=== PATIENT | male | born 1940 | race Caucasian/White ===

== ENCOUNTER 2017-12-16 06:40 | Day surgery (SDC) | payer MEDICARE ==
[2017-12-16] MEDS ORDERED: LIDOCAINE 1% 20 ML VIAL (10MG/ML) FOR IV START INTRADERMA PRN (06:42)
[2017-12-16] MEDS ORDERED: MIDAZOLAM 2 MG/2 ML VIAL IV PRN (06:42)
[2017-12-16] MEDS ORDERED: LACTATED RINGERS 1,000 ML IV SCH (06:42)
[2017-12-16 06:56] VITALS: TEMP 98.4
[2017-12-16] MEDS ORDERED: LACTATED RINGERS 1,000 ML IV ONE ×2 (07:00)
[2017-12-16 07:05] LABS: Glucose,Whole Blood 135 mg/dL (75-99)
[2017-12-16] MEDS ORDERED: PROPOFOL 10 MG/ML 20 ML VIAL IV ONE (07:36)
[2017-12-16] MEDS ORDERED: fentaNYL (PF) 50 MCG/ML 2 ML AMP ONE (07:36)
--- NOTE | 2017-12-16 07:53 | P.GSHP ---
History of Present Illness H&P Date: 12/16/17 Chief Complaint: Screening colonoscopy 's is a 77-year-old male who presents today for screening colonoscopy. He denies a significant GI complaints. Past Medical History Past Medical History: Cancer, CVA/TIA, Myocardial Infarction (VT), Osteoarthritis (OA), Prostate Disorder Additional Past Medical History / Comment(s): CVA, NO RESIDUAL. COLON POLYPS. APPOINTMENT FOR SLEEP APNEA ASSESSMENT. SKIN CANCER. Last Myocardial Infarction Date:: 1999 History of Any Multi-Drug Resistant Organisms: None Reported Past Surgical History: Joint Replacement, Orthopedic Surgery, Tonsillectomy Additional Past Surgical History / Comment(s): ORIF LEFT SHOULDER. TOTAL LEFT KNEE. BILATERAL CATARACTS/IMPLANTS. Past Anesthesia/Blood Transfusion Reactions: No Reported Reaction Past Psychological History: No Psychological Hx Reported Smoking Status: Former smoker Past Alcohol Use History: Occasional Additional Past Alcohol Use History / Comment(s): SMOKED FOR 30 YRS, QUIT IN 1987, 2PPD. Past Drug Use History: None Reported - Past Family History Sister(s) Additional Family Medical History / Comment(s): UTERINE Brother(s) Family Medical History: Cancer Additional Family Medical History / Comment(s): PROSTATE Medications and Allergies Home Medications Medication Instructions Recorded Confirmed Type Cyanocobalamin [Vitamin B-12] 1 tab PO DAILY 12/11/17 12/11/17 History Latanoprost Ophth [Xalatan 0.005%] 1 drop BOTH EYES HS 12/11/17 12/11/17 History Liraglutide [Victoza 2-Francisco J] 1 dose SQ QAM 12/11/17 12/11/17 History Super Beta Prostate 1 tab PO BID 12/11/17 History Timolol 0.5% Ophth Soln [Timoptic 1 drop BOTH EYES HS 12/11/17 12/11/17 History 0.5% Ophth Soln] metFORMIN HCL [Glucophage] 500 mg PO HS 12/11/17 12/11/17 History Allergies Allergy/AdvReac Type Severity Reaction Status Date / Time No Known Allergies Allergy Verified 12/11/17 09:58 Surgical - Exam Vital Signs Temp Pulse Resp BP Pulse Ox 98.4 F 78 18 156/78 95 12/16/17 06:55 12/16/17 06:55 12/16/17 06:55 12/16/17 06:55 12/16/17 06:55 - General well developed, no distress - Eyes PERRL - ENT normal pinna - Neck no masses - Respiratory normal expansion - Cardiovascular Rhythm: regular - Abdomen Abdomen: soft, non tender Results - Labs Abnormal Lab Results - Last 24 Hours (Table) 12/16/17 Range/Units 06:59 POC Glucose (mg/dL) 135 H (75-99) mg/dL Assessment and Plan Assessment: We will perform screening colonoscopy.
[2017-12-16 08:08] VITALS: RESP 16
--- NOTE | 2017-12-16 08:09 | P.OP ---
Date of Procedure: 12/16/17 Preoperative Diagnosis: Screening colonoscopy Postoperative Diagnosis: Colon polyps Procedure(s) Performed: Screening colonoscopy Anesthesia: MAC Surgeon: Ivan Blancas Pathology: other (Right colon polyp, transverse colon polyp) Condition: stable Disposition: PACU Description of Procedure: Patient's placed on the endoscopy table in the lateral position. He received IV sedation. Digital rectal exam was performed which revealed no rebound is. The flexible colonoscope was then placed patient anus passed throughout the entire colon. The ileocecal valve was visualized. The cecum, was normal. In the right colon is a small sessile polyp and this was removed the cold forcep. Scope was then brought back the transverse colon another sessile polyp was seen and instrument with a cold forcep. Scope was then withdrawn and the remainder the descending and sigmoid colon appeared normal. Scope was then brought back the rectum and this appeared normal. Scope was withdrawn for patient.
[2017-12-16 08:26] VITALS: BP 125/81; PULSE 72
== END 2017-12-16 08:52 | disposition home or self-care (01) ==
LOC: ORWHC2ENDO 06:40
PROVIDERS: ATTEND Surgery
DX: Z12.11 Encounter for screening for malignant neoplasm of colon (principal); D12.2 Benign neoplasm of ascending colon; D12.3 Benign neoplasm of transverse colon; I25.2 Old myocardial infarction; I25.10 Atherosclerotic heart disease of native coronary artery without angina pectoris; M19.90 Unspecified osteoarthritis, unspecified site; E11.9 Type 2 diabetes mellitus without complications; Z86.010 Personal history of colon polyps; Z85.828 Personal history of other malignant neoplasm of skin; Z87.891 Personal history of nicotine dependence; Z79.84 Long term (current) use of oral hypoglycemic drugs; Z79.899 Other long term (current) drug therapy; Z86.73 Personal history of transient ischemic attack (TIA), and cerebral infarction without residual deficits; Z95.5 Presence of coronary angioplasty implant and graft
CPT/HCPCS: 88305; 45380; J3010; J2704

== ENCOUNTER → 2018-01-02 | Outpatient (CLI) | payer MEDICARE ==
--- NOTE | 2018-01-02 17:29 | CONS ---
CONSULTATION DATE OF SERVICE: 01/02/2018 77-year-old gentleman who has been evaluated in the sleep center for possible obstructive sleep apnea-hypopnea syndrome. HISTORY OF PRESENT ILLNESS/SLEEP-WAKE EVALUATION: Patient usual bedtime from 11 p.m. until 1 a.m. and he sleeps until 7- 8 a.m. Usually no problems with falling asleep. No TV in bedroom. He sleeps in different positions including backside and stomach with his and according to her, he has very loud snoring and stopped breathing during the sleep. The patient wakes up from sleep maybe once with nocturia. During the day, patient feels sleepy, may take nap 1 or 2 times any time. [place] Sleepiness Scale significantly increased to 10. PAST MEDICAL HISTORY: Positive for coronary artery disease, diabetes mellitus, stroke in 1999 with changes of peripheral vision without any residual deficit, glaucoma. PAST SURGICAL HISTORY: Stent insertion to coronary arteries, left knee replacement, surgery for left upper arm fracture. MEDICATIONS: Patient does not remember the name of medications. He is taking eye drops for glaucoma, medication for diabetes. SOCIAL HISTORY: Positive for smoking for about 30 years up to 1-1/2 pack per day. Quit in 1985. Alcohol consumption rarely at the present time. REVIEW OF SYSTEMS: Awakenings from sleep, sleepiness during the day. FAMILY HISTORY: Hypertension, heart problems, stroke, arthritis, sleep apnea, snoring, cancer, diabetes. PHYSICAL EXAM: GENERAL 77-year-old gentleman without distress. VITAL SIGNS BP 138/60, HR 83, RR 18, height 5 and 7, weight 208.8, BMI 32.5, temperature 99, oxygen saturation at room air 96%. HEENT PERRLA, EOMI, evaluation of oropharynx showed extremely low position of soft palate, small nasal passages, some slight restriction of nasal breathing, wide neck 17- 3/4 inches in circumference. NECK Supple, no JVD. Thyroid is not palpable. LUNGS Clear to percussion and to auscultation. Good air exchange. No wheezing or rhonchi. HEART S1, S2 regular. No murmurs, gallops, or rubs. ABDOMEN Obese. Soft and nontender. Bowel sounds are present. No organomegaly appreciated. EXTREMITIES No clubbing or cyanosis. YEAST CAKE CUTTER Awake, alert, and oriented X3. Cranial nerves 2 to 7 intact. There is no fasciculation or atrophy. noted. No focal deficits observed. IMPRESSION: 1. Snoring, witnessed episodes of stopped breathing during the sleep, low position of soft palate, excessive daytime sleepiness. [place] Sleepiness Scale is 10, wide neck, obstructive sleep apnea-hypopnea syndrome. 2. Mild obesity, BMI 32.5. 3. Diabetes mellitus. 4. Coronary artery disease, status post stent insertion. 5. Glaucoma. 6. History of stroke in 1999 with changes of peripheral vision. No residual deficit. 7. Status post total left knee replacement. 8. Status post left upper arm fracture. PLAN: 1. Polysomnography for evaluation of patient's breathing during sleep. 2. CPAP/BiPAP titration if sleep study confirms obstructive sleep apnea-hypopnea syndrome. 3. Preferable position during sleep on the side. 4. No driving if patient feels any sleepiness. 5. I will see patient for follow up visit to explain results of testing and following plan. Thank you very much for referring this patient for consultation. Sincerely, Sandeep Pina MD, PhD, FAASM Diplomat of [employer] Pulp Roller of [facility] [place] MMODL / IJN: [id number] /
== END | disposition home or self-care (01) ==
LOC: SLEEP 14:38
PROVIDERS: ATTEND Internal Medicine
DX: G47.33 Obstructive sleep apnea (adult) (pediatric) (principal); E66.9 Obesity, unspecified; Z68.32 Body mass index [BMI] 32.0-32.9, adult; E11.9 Type 2 diabetes mellitus without complications; I25.10 Atherosclerotic heart disease of native coronary artery without angina pectoris; Z95.5 Presence of coronary angioplasty implant and graft; H40.9 Unspecified glaucoma; Z86.73 Personal history of transient ischemic attack (TIA), and cerebral infarction without residual deficits; Z96.652 Presence of left artificial knee joint; Z87.81 Personal history of (healed) traumatic fracture; Z99.89 Dependence on other enabling machines and devices; Z87.891 Personal history of nicotine dependence
CPT/HCPCS: 99211

== ENCOUNTER → 2018-02-28 | Outpatient (CLI) | payer MEDICARE ==
--- NOTE | 2018-02-28 12:21 | XR ---
Abdomen HISTORY: Right kidney stone Frontal view of the abdomen on 2 images. No comparisons. Double-J ureteral stent is in place. There are calcifications at the level of the proximal right uret er, approximately 4 5 calcification suspected, largest measures approximately 9 mm. Multiple calcific ations are also seen within right kidney, additional 5-10 calcifications suspected. Suspect at least one calcification within the left kidney. Largest calcifications within the kidneys measure only appr oximately 3 to 5 mm. Lung bases are clear. There is no evident bowel obstruction or pneumoperitoneum. Probable vascular calcifications within the pelvis. Bone mineralization is normal. IMPRESSION: Nephrolithiasis, proximal right ureteral calcifications.
== END ==
LOC: RADXRMAIN 09:58
PROVIDERS: ATTEND Urology
DX: N20.0 Calculus of kidney (principal); N28.89 Other specified disorders of kidney and ureter
CPT/HCPCS: 74018

== ENCOUNTER → 2018-03-18 | Outpatient (CLI) | payer MEDICARE ==
--- NOTE | 2018-03-18 13:47 | XR ---
Abdomen HISTORY: Stone Frontal view of the abdomen correlated prior exam 02/28/2018 History an interval removal of double-J stent. The calcifications seen over the right kidney and in t he proximal right ureter are no longer evident. Paraspinal calcification at L4 level shows central josefina cency and likely represents a phlebolith. Calcifications within the pelvis are also noted and thought to be stable on the left. IMPRESSION: Interval improvement in nephrolithiasis, proximal right ureteral lithiasis. Interval doub le-J stent removal.
== END | disposition home or self-care (01) ==
LOC: RADXRMAIN 10:53
PROVIDERS: ATTEND Urology
DX: N20.2 Calculus of kidney with calculus of ureter (principal)
CPT/HCPCS: 74018

== ENCOUNTER → 2018-04-24 | Outpatient (CLI) | payer MEDICARE ==
--- NOTE | 2018-04-24 15:25 | PN ---
PROGRESS NOTE DATE OF SERVICE: 04/24/2018 A 78-year-old gentleman who has been followed in the Sleep Center for treatment of obstructive sleep apnea-hypopnea syndrome. Recently patient had diagnostic polysomnogram and CPAP titration, which showed that he has obstructive sleep apnea- hypopnea syndrome and I explained the results of the sleep studies to the patient and family in details. Subsequently, patient was started on treatment with CPAP in 2 days. He has just visit with his CPAP machine. He is able to use his machine has some problems related to a full-face mask because it is pressed on his nasal bridge. Otherwise, he is able to use CPAP equipment every night. I checked his CPAP unit. CPAP pressure is 10 cm of water. Usage is 100% of the time more than 4 hours, average 8.3 hours. Leak is only 6 L/minute. Apnea-hypopnea index for the last month only 1.3, which is absolutely normal. Today, his [place] Sleepiness Scale is 10. MEDICATIONS: Metformin. PHYSICAL EXAM: Patient in no distress, BP 142/67, HR 74, RR18, weight 221.2, temperature 98.7, oxygen saturation room air 96%. OROPHARYNX: Extremely low position of soft palate. ABDOMEN: Obese. Neck Supple, no JVD. Thyroid is not palpable. LUNGS Clear to percussion and to auscultation. Good air exchange. No wheezing or rhonchi. HEART S1, S2 regular. No murmurs, gallops, or rubs. EXTREMITIES No clubbing or cyanosis. JD EDWARDS DEVELOPER Awake, alert, and oriented X3. Cranial nerves 2 to 7 intact. There is no fasciculation or atrophy. noted. No focal deficits observed. IMPRESSION: 1. Obstructive sleep apnea-hypopnea syndrome in moderate range apnea-hypopnea index 20.5 with oxygen desaturation to 78.4% on control with CPAP at 10 cm of water patient demonstrated 100% compliance with treatment benefitting from treatment. 2. Diabetes mellitus. 3. Mild obesity. 4. Coronary artery disease, status post stent insertion. 5. Glaucoma. 6. History of stroke in 2000 with changes of peripheral vision. 7. Status post total left knee replacement. PLAN: 1. Patient will continue to use CPAP equipment every night for the whole night. 2. We fitted patient with a new type of full-face mask [employer] and he likes this type of mask. I will write him a prescription for this mask. 3. Losing weight. 4. Sleep hygiene with regular time in bed for at least 8 hours. 5. No driving if feeling any sleepiness. Thank you very much for allowing me to participate in the management of your patient. Sincerely, Sandeep Pina MD, PhD, FAASM Diplomat of [employer] Baggage Security Checker of [facility] [place] MMODL / IJN: [id number] /
== END ==
LOC: SLEEP 13:53
PROVIDERS: ATTEND Internal Medicine
DX: G47.33 Obstructive sleep apnea (adult) (pediatric) (principal); E11.9 Type 2 diabetes mellitus without complications; E66.9 Obesity, unspecified; I25.10 Atherosclerotic heart disease of native coronary artery without angina pectoris; H40.9 Unspecified glaucoma; Z86.73 Personal history of transient ischemic attack (TIA), and cerebral infarction without residual deficits; Z96.652 Presence of left artificial knee joint; Z95.5 Presence of coronary angioplasty implant and graft; Z99.89 Dependence on other enabling machines and devices

== ENCOUNTER → 2019-04-02 | Outpatient (CLI) | payer MEDICARE ==
--- NOTE | 2019-04-02 12:23 | SFUN ---
SLEEP CENTER FOLLOW UP NOTE DATE OF SERVICE: 04/02/2019 A 79-year-old gentleman who has been followed in the Sleep Center for treatment of obstructive sleep apnea-hypopnea syndrome. The patient successfully continues to use CPAP equipment every night without significant problems related to mask fitting, pressure and humidification. [place] Sleepiness Scale today although increased to 14. He is getting his supplies in time. I checked his CPAP unit. CPAP pressure is 10 cm of water. For the last month, usage is 25/30 nights for more hours with average usage 9.3 hours per night. Leak is 10 L/minute which is normal range. Apnea-hypopnea index only 0.9, which is absolutely perfect. Recently patient had laser surgery on both eyes for glaucoma. Eye pressure improved after surgery. MEDICATIONS: Metformin. During physical exam patient in no distress. BP 135/72, HR 74, RR 18, height 5, 7, weight 224, which is 3 pounds more than during last visit one year ago. Body mass index 35. Temperature 97.9. oxygen saturation at room air 98%. OROPHARYNX: Extremely low position of soft palate. Mallampati 4. ABDOMEN: Obese. NECK: Supple, no JVD. Thyroid is not palpable. LUNGS: Clear to percussion and to auscultation. Good air exchange. No wheezing or rhonchi. HEART: S1, S2 regular. No murmurs, gallops, or rubs. EXTREMITIES: No clubbing or cyanosis. CONDUCTOR SLEEPING CAR: Awake, alert, and oriented X3. Cranial nerves 2 to 7 intact. There is no fasciculation or atrophy. noted. No focal deficits observed. IMPRESSION: 1. Obstructive sleep apnea-hypopnea syndrome in moderate range. Apnea-hypopnea index 20.5, on full control with CPAP at 10 cm of water. Patient demonstrated great compliance with treatment, benefitting from treatment. 2. Diabetes mellitus. 3. Mild obesity. 4. Coronary artery disease, status post stent insertion. 5. Glaucoma, status post surgical treatment, bilateral laser on both eyes several months ago. 6. History of stroke in 1999 with changes of peripheral vision. 7. Status post total left knee replacement. PLAN: 1. I will maintain all necessary prescriptions for CPAP supplies including mask, tube, filters. 2. Losing weight. 3. Sleep hygiene with regular time in bed for at least 7-1/2 to 8 hours. 4. No driving if feeling sleepiness. 5. Followup visit in 1 year or earlier if patient has any problems. Thank you very much for allowing me to participate in the management of your patient. Sincerely, Sandeep Pina MD, PhD, FAASM Diplomat of [employer] [employer] Floor Representative of [facility] [place] [email or web address] / BILLY: [id number] /
== END | disposition home or self-care (01) ==
LOC: SLEEP 10:46
PROVIDERS: ATTEND Internal Medicine
DX: G47.33 Obstructive sleep apnea (adult) (pediatric) (principal); E11.9 Type 2 diabetes mellitus without complications; E66.9 Obesity, unspecified; I25.10 Atherosclerotic heart disease of native coronary artery without angina pectoris; H40.9 Unspecified glaucoma; Z95.828 Presence of other vascular implants and grafts; Z98.890 Other specified postprocedural states; Z86.73 Personal history of transient ischemic attack (TIA), and cerebral infarction without residual deficits; Z96.652 Presence of left artificial knee joint; Z99.89 Dependence on other enabling machines and devices

== ENCOUNTER → 2020-07-06 | Outpatient (CLI) | payer MEDICARE ==
--- NOTE | 2020-07-06 17:35 | SFUN ---
SLEEP CENTER FOLLOW UP NOTE DATE OF SERVICE: 07/06/2020 This 80-year-old gentleman has been followed in Sleep Center for treatment of obstructive sleep apnea-hypopnea syndrome. The patient did not use his CPAP unit for the last months because he had an ear implant on his head and headgear pressing on the area of surgery. Before that, the patient was able to use CPAP unit without significant problems every night for the whole night. I checked his CPAP unit. Pressure is 10 cm of water. Previously the patient used it every night, 9.4 hours per night. Leak was 16 L/minute. Apnea-hypopnea index was only 0.4, which is totally normal. At present his area of surgery has healed, and he will start to use his CPAP equipment every night. [place] Sleepiness Scale today is 12. Again, the patient patient was not able to use his machine for the last months. MEDICATIONS: Metformin once a day, Flomax once a day. PHYSICAL EXAMINATION: GENERAL: A pleasant patient in no distress. VITAL SIGNS: BP 150/64, HR 73, RR 15, height 5 feet 7 inches, weight 219.4, temperature 98.6, oxygen saturation at room air 98%. HEENT: PERRLA, EOMI. Evaluation of oropharynx showed tongue protrudes midline. Extremely low position of soft palate. Mallampati IV. Amplifier for hearing on the left side of the head. NECK: Supple. No JVD. Thyroid is not palpable. LUNGS: Clear to percussion and to auscultation. Good air exchange. No wheezing or rhonchi. HEART: S1, S2 regular. No murmurs, gallops or rubs. ABDOMEN: Slightly obese. EXTREMITIES: No clubbing or cyanosis. TRIMMER LOADER: Awake, alert, and oriented X3. Cranial nerves 2 to 7 intact. There is no fasciculation or atrophy. noted. No focal deficits observed. IMPRESSION: 1. Obstructive sleep apnea-hypopnea syndrome; normal respiration on CPAP. 2. Status post recent ear implant insertion. The patient was not able to use the machine because of the area of surgery being in the way where he has headgear for the CPAP. 3. Diabetes mellitus. 4. Mild obesity. 5. Coronary artery disease, status post stent insertion. 6. Glaucoma, status post surgical treatment by laser. 7. History of stroke in 1999 with changes in peripheral vision. 8. Status post total left knee replacement. PLAN: 1. Patient will continue to use PAP equipment every night for the whole night. 2. Sleep hygiene with regular time in bed for at least 7-1/2 to 8 hours. 3. Precautions related to driving. No driving if feeling sleepiness. 4. I will maintain all necessary prescription for PAP supplies including mask, tube, filters. 5. Watching weight. 6. No driving if feeling sleepiness. 7. Follow-up visit in 6 months or earlier if patient has any problems. Thank you very much for allowing me to participate in the management of your patient. Sincerely, Sandeep Pina MD, PhD, FAASM Diplomat of [employer] Inventory Technician of [facility] [place] MMODL / KENZIEN: [id number] /
== END | disposition home or self-care (01) ==
LOC: SLEEP 11:22
PROVIDERS: ATTEND Internal Medicine
DX: G47.33 Obstructive sleep apnea (adult) (pediatric) (principal); E11.9 Type 2 diabetes mellitus without complications; E66.9 Obesity, unspecified; H40.9 Unspecified glaucoma; I25.10 Atherosclerotic heart disease of native coronary artery without angina pectoris; Z95.5 Presence of coronary angioplasty implant and graft; Z96.652 Presence of left artificial knee joint; Z99.89 Dependence on other enabling machines and devices; Z79.84 Long term (current) use of oral hypoglycemic drugs; Z86.73 Personal history of transient ischemic attack (TIA), and cerebral infarction without residual deficits

== ENCOUNTER 2020-07-14 06:44 | Day surgery (SDC) | payer MEDICARE ==
[2020-07-12 16:10] VITALS: BMI 34.4
[~2020-07-14 06:44] MED LIST: LACTATED RINGERS 1,000 ML IV SCH
[2020-07-14 07:22] VITALS: TEMP 97.1
[2020-07-14] MEDS ORDERED: PROPOFOL 10 MG/ML 20 ML VIAL IV ONE (07:28)
[2020-07-14 07:31] LABS: Glucose,Whole Blood 108 mg/dL (75-99)
[2020-07-14 07:48] VITALS: RESP 16
[2020-07-14 08:05] VITALS: BP 126/72; PULSE 57
--- NOTE | 2020-07-14 08:42 | PCN ---
PROCEDURE NOTE PREOPERATIVE DIAGNOSIS: Pancytopenia. POSTOPERATIVE DIAGNOSIS: Pancytopenia. PROCEDURE: Bone marrow aspirate and biopsy. SITE: Right iliac crest. ANESTHESIA: Local with IV systemic sedation. DETAILS: Utilizing sterile technique, the skin overlying the right iliac crest was prepared with Betadine and alcohol. After adequate sterile draping, local anesthesia and systemic sedation, a size 11, 4-inch Aveillantshidi needle was utilized to access the periosteum with ease. A total of 15 mL of aspirate and 1.5 cm bone core biopsies were obtained. The patient tolerated the procedure well. There was no immediate procedure related complication. TOTAL BLOOD LOSS: Less than 1 mL. RESULTS: Pending. MMODL / IJN: [id number] /
[2020-07-14 09:09] LABS: Anisocytosis Moderate; Basophils # (A) 0.1 k/uL (0-0.2); Basophils % (A) 1 %; Eosinophils # (A) 0.5 k/uL (0-0.7); Eosinophils % (A) 9 %; HCT 30.5 % (39.0-53.0); HGB 10.2 gm/dL (13.0-17.5); Lymphocytes # (A) 1.3 k/uL (1.0-4.8); Lymphocytes % (A) 24 %; MCH 39.2 pg (25.0-35.0); MCHC 33.5 g/dL (31.0-37.0); Macrocytosis Marked; Mean Platelet Volume 11.8; Monocytes # (A) 0.3 k/uL (0-1.0); Monocytes % (A) 6 %; Neutrophils % (A) 56 %; RBC 2.61 m/uL (4.30-5.90); Reticulocyte % 1.8 % (0.5-2.0); WBC 5.3 k/uL (3.8-10.6)
[2020-07-14 10:16] LABS: Large Platelets Present; Poikilocytosis (M) Present
[2020-07-14 10:17] LABS: Platelet Count 60 k/uL (150-450)
== END 2020-07-14 08:20 | disposition home or self-care (01) ==
LOC: OR 06:44
PROVIDERS: ATTEND Internal Medicine Hematology & Oncology
DX: D50.9 Iron deficiency anemia, unspecified (principal); D69.6 Thrombocytopenia, unspecified; E11.9 Type 2 diabetes mellitus without complications; Z95.5 Presence of coronary angioplasty implant and graft; Z96.652 Presence of left artificial knee joint; Z98.890 Other specified postprocedural states; Z80.42 Family history of malignant neoplasm of prostate; Z80.41 Family history of malignant neoplasm of ovary; Z86.19 Personal history of other infectious and parasitic diseases; Z87.891 Personal history of nicotine dependence; G47.33 Obstructive sleep apnea (adult) (pediatric); Z99.89 Dependence on other enabling machines and devices; Z85.828 Personal history of other malignant neoplasm of skin; Z86.73 Personal history of transient ischemic attack (TIA), and cerebral infarction without residual deficits; Z97.2 Presence of dental prosthetic device (complete) (partial); Z79.84 Long term (current) use of oral hypoglycemic drugs; Z79.899 Other long term (current) drug therapy
CPT/HCPCS: 85025; 85045; 38222; J2704

== ENCOUNTER → 2022-09-13 | Outpatient (CLI) | payer MEDICARE ==
[2022-09-13 10:20] LABS: INR 1.5 (<1.2); Partial Thromboplastin Time 26.3 sec (22.0-30.0); Prothrombin Time 14.7 sec (9.0-12.0)
[2022-09-13 15:38] LABS: Appearance,Urine Clear (Clear); Bilirubin,Urine Negative (Negative); Blood,Urine Negative (Negative); Color,Urine Dark Yellow (Yellow); Ketones,Urine Negative (Negative); Nitrite,Urine Negative (Negative); Specific Gravity,Urine 1.019 (1.001-1.030)
[2022-09-13 15:59] LABS: African American GFR (CKD) 58.9 (60.0-200.0); Albumin 3.3 g/dL (3.8-4.9); Albumin/Globulin Ratio 0.92 (1.60-3.17); Anion Gap 9.3 mmol/L (10.00-18.00); BUN/Creat Ratio 16.54 Ratio (12.00-20.00); Blood Urea Nitrogen 21.5 mg/dL (9.0-27.0); Calcium 9.2 mg/dL (8.7-10.3); Carbon Dioxide 21.9 mmol/L (20.0-27.5); Globulin 3.6 g/dL (1.6-3.3); Non-African American GFR(CKD) 50.8 (60.0-200.0); Potassium 4.5 mmol/L (3.5-5.5); Total Bilirubin 2.3 mg/dL (0.30-1.20)
[2022-09-13 16:26] LABS: HCT 26.7 % (39.6-50.0); HGB 8.7 g/dL (13.0-17.0); Immature Platelet Fraction 16.3 % (1.1-6.1); MCHC 32.6 g/dL (32.0-37.0); MCV 119.7 fL (80.0-97.0); Mean Platelet Volume 13.6 fL (9.5-12.2); NRBC Per 100 WBC 0 /100 WBCS (0.0-0.0); Platelet Count 54 X 10*3/uL (140-440); RBC 2.23 X 10*6/uL (4.40-5.60); RDW 21.5 % (11.5-14.5); WBC 5.77 X 10*3/uL (4.50-10.00)
== END | disposition home or self-care (01) ==
LOC: LABPAT 09:40
PROVIDERS: ATTEND Orthopaedic Surgery
DX: Z01.812 Encounter for preprocedural laboratory examination (principal); E11.9 Type 2 diabetes mellitus without complications; M17.11 Unilateral primary osteoarthritis, right knee
CPT/HCPCS: 36415; 80053; 81003; 83036; 85027; 85610; 85730; 87070

== ENCOUNTER → 2022-09-25 | Outpatient (CLI) | payer MEDICARE | END | disposition home or self-care (01) | LOC: LABWHC1 09:13 | PROVIDERS: ATTEND Orthopaedic Surgery | DX: Z53.9 Procedure and treatment not carried out, unspecified reason (principal) ==

== ENCOUNTER 2022-11-08 14:11 | Inpatient (IN) | payer MEDICARE ==
[2022-11-08 14:56] LABS: Anisocytosis Moderate; Basophils % (A) 0 %; Eosinophils # (A) 0.3 k/uL (0-0.7); Eosinophils % (A) 8 %; HCT 24.9 % (39.0-53.0); HGB 8.2 gm/dL (13.0-17.5); Hypochromasia Slight; Lymphocytes % (A) 24 %; MCH 37.8 pg (25.0-35.0); MCHC 32.9 g/dL (31.0-37.0); Macrocytosis Marked; Mean Platelet Volume 12.2; Monocytes # (A) 0.3 k/uL (0-1.0); Monocytes % (A) 7 %; Neutrophils # (A) 2.5 k/uL (1.3-7.7); Neutrophils % (A) 58 %; RBC 2.17 m/uL (4.30-5.90); RDW 20.1 % (11.5-15.5); WBC 4.4 k/uL (3.8-10.6)
[2022-11-08 15:09] LABS: ALT 24 U/L (4-49); AST 49 U/L (17-59); African American GFR (CKD) 51 (>60 ml/min/1.73 sqM); Alkaline Phosphatase 72 U/L (38-126); Anion Gap 4 mmol/L; Blood Urea Nitrogen 17 mg/dL (9-20); Calcium 8.3 mg/dL (8.4-10.2); Carbon Dioxide 28 mmol/L (22-30); Chloride 107 mmol/L (98-107); Glucose 125 mg/dL (74-99); Non-African American GFR(CKD) 44 (>60 ml/min/1.73 sqM); Potassium 2.9 mmol/L (3.5-5.1); Sodium 139 mmol/L (137-145); Total Bilirubin 2.3 mg/dL (0.2-1.3); Total Protein 6.9 g/dL (6.3-8.2)
--- NOTE | 2022-11-08 15:28 | XR ---
EXAMINATION TYPE: XR chest 2V DATE OF EXAM: 11/08/2022 COMPARISON: 03/12/2013 HISTORY: Shortness of breath FINDINGS: There are bilateral pleural effusions with cardiomegaly and bibasilar infiltrate. There is a diffuse interstitial pattern. Biapical pleural thickening. No pneumothorax. Hypertrophic and degenerative ch anges of the spine. Hyperinflation suggests COPD. IMPRESSION: 1. CHF superimposed on a background of COPD.
[2022-11-08 15:29] LABS: MCV 114.8 fL (80.0-100.0); Platelet Count 52 k/uL (150-450)
[2022-11-08] MEDS ORDERED: FUROSEMIDE 10 MG/ML 10 ML VIAL IV STA (15:33)
[2022-11-08] MEDS ORDERED: NITROGLYCERIN OINT 1 INCH/GM PACKET TOPICAL STA (15:34)
[2022-11-08 15:42] LABS: Target Cells Present
[2022-11-08 15:43] LABS: Tear Drop Cells Present
--- NOTE | 2022-11-08 16:04 | ED ---
General Adult HPI - General Chief complaint: Shortness of Breath Stated complaint: PHILLIP Time Seen by Provider: 11/08/22 14:20 Source: patient, RN notes reviewed, old records reviewed Mode of arrival: ambulatory Limitations: no limitations - History of Present Illness Initial comments: This is a 82-year-old male who was sent in by his primary medical care doctor he has a history of congestive heart failure. Patient states she's been getting progressively more more short of breath. Patient states she's also gained 30 pounds over the last few weeks. Patient denies any fever chills. Patient denies any chest pain or palpitations. Patient denies any abdominal pain patient denies nausea vomiting diarrhea. Patient denies lightheadedness or dizziness. Patient has noted quite a bit of swelling in his extremities. - Related Data Home Medications Medication Instructions Recorded Confirmed Cyanocobalamin [Vitamin B-12] 500 mcg PO DAILY 12/11/17 11/08/22 Latanoprost Ophth [Xalatan 0.005%] 1 drop BOTH EYES HS 12/11/17 11/08/22 Multivit-Min/FA/Lycopen/Lutein 1 tab PO DAILY 07/12/20 11/08/22 [Centrum Silver Men Tablet] Tamsulosin [Flomax] 0.4 mg PO HS 07/12/20 11/08/22 Ferrous Sulfate [Iron (65 MG 325 mg PO DAILY 07/25/22 11/08/22 Elemental)] Pioglitazone [Actos] 30 mg PO DAILY 07/25/22 11/08/22 lisinopriL 2.5 mg PO DAILY 07/25/22 11/08/22 Albuterol Inhaler [Ventolin Hfa 2 puff INHALATION RT-Q6H PRN 11/08/22 11/08/22 Inhaler] Dorzolamide/Timolol/Pf 1 drop BOTH EYES HS 11/08/22 11/08/22 [Dorzolamide 2%-Timolol 0.5%] Furosemide [Lasix] 40 mg PO BID@0900,1600 11/08/22 11/08/22 Previous Rx's Medication Instructions Recorded Apixaban [Eliquis] 2.5 mg PO BID #60 tab 10/01/22 Atorvastatin [Lipitor] 40 mg PO DAILY #90 tablet 10/01/22 Allergies Allergy/AdvReac Type Severity Reaction Status Date / Time No Known Allergies Allergy Verified 11/08/22 17:53 Review of Systems ROS Statement: Those systems with pertinent positive or pertinent negative responses have been documented in the HPI. ROS Other: All systems not noted in ROS Statement are negative. 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 COLON POLYPS, SKIN CANCER,uses cpap Last Myocardial Infarction Date:: 1999 History of Any Multi-Drug Resistant Organisms: None Reported Past Surgical History: Back Surgery, Joint Replacement, Orthopedic Surgery, Tonsillectomy Additional Past Surgical History / Comment(s): ORIF LEFT SHOULDER. TOTAL LEFT KNEE. BILATERAL CATARACTS/IMPLANTS. Past Anesthesia/Blood Transfusion Reactions: No Reported Reaction Additional Past Anesthesia/Blood Transfusion Reaction / Comment(s): no problems with prior with platelet infusion Date of Last Stent Placement:: 1999 Past Psychological History: No Psychological Hx Reported Smoking Status: Former smoker Past Alcohol Use History: Occasional Past Drug Use History: None Reported - Past Family History Sister(s) Family Medical History: Cancer Additional Family Medical History / Comment(s): UTERINE CANCER. Brother(s) Family Medical History: Cancer Additional Family Medical History / Comment(s): PROSTATE CANCER. General Exam - General Exam Comments Initial Comments: GENERAL: Patient is well-developed and well-nourished. Patient is nontoxic and well- hydrated and is in mild distress. ENT: Neck is soft and supple. No significant lymphadenopathy is noted. Oropharynx is clear. Moist mucous membranes. Neck has full range of motion without e liciting any pain. EYES: The sclera were anicteric and conjunctiva were pink and moist. Extraocular movements were intact and pupils were equal round and reactive to light. Eyelids were unremarkable. PULMONARY: Patient has expiratory wheezing bilaterally CARDIOVASCULAR: There is a regular rate and rhythm without any murmurs gallops or rubs. ABDOMEN: Soft and nontender with normal bowel sounds. SKIN: Skin is clear with no lesions or rashes and otherwise unremarkable. NEUROLOGIC: Patient is alert and oriented x3. Cranial nerves II through XII are grossly intact. Motor and sensory are also intact. Normal speech, volume and content. Symmetrical smile. MUSCULOSKELETAL: Normal extremities with adequate strength and full range of motion. 2+ edema bilaterally LYMPHATICS: No significant lymphadenopathy is noted PSYCHIATRIC: Normal psychiatric evaluation. Limitations: no limitations Course Vital Signs 11/08/22 14:13 Temperature 98.5 F Pulse Rate 97 Respiratory 28 H Rate Blood Pressure 132/62 O2 Sat by Pulse 95 Oximetry Medical Decision Making - Medical Decision Making EKG was interpreted by myself shows atrial fibrillation at 80 bpm QRS is 97 QT interval 45 QTC is 441 per patient's EKG shows no ST segment elevation or dep ression. Was pt. sent in by a medical professional or institution (, PA, TEACHER VISUALLY IMPAIRED, urgent care, hospital, or longterm...) When possible be specific @ -[No] Did you speak to anyone other than the patient for history (EMS, parent, family, police, friend...)? What history was obtained from this source @ -[No] Did you review nursing and triage notes (agree or disagree)? Why? @ -[I reviewed and agree with nursing and triage notes] Were old charts reviewed (outside hosp., previous admission, EMS record, old EKG, old radiological studies, urgent care reports/EKG's, longterm records)? Report findings @ -I reviewed prior Labs prior charts and prior radiological studies Differential Diagnosis (chest pain, altered mental status, abdominal pain women, abdominal pain men, vaginal bleeding, weakness, fever, dyspnea, syncope, headache, dizziness, GI bleed, back pain, seizure, CVA, palpatations, mental health, musculoskeletal)? @ -Differential Dyspnea: Coronary syndrome, arrhythmia, tamponade, asthma, COPD, pulmonary embolism, pneumonia, pneumothorax, pulmonary effusion, anaphylaxis, diabetic ketoacidosis, flailed chest, pulmonary contusion, diaphragmatic rupture, anemia, neuromuscular, this is not meant to be an all-inclusive list. EKG interpreted by me (3pts min.). @ -[As above] X-rays interpreted by me (1pt min.). @ -Stat x-ray shows ulnar edema CT interpreted by me (1pt min.). @ -[None done] U/S interpreted by me (1pt. min.). @ -[None done] What testing was considered but not performed or refused? (CT, X-rays, U/S, labs)? Why? @ -[None] What meds were considered but not given or refused? Why? @ -[None] Did you discuss the management of the patient with other professionals (professionals i.e. , PA, TEACHER VISUALLY IMPAIRED, lab, RT, psych nurse, transition social worker, strategic buyer, teacher, assurance officer, shelter case manager)? Give summary @ -[facility] Was smoking cessation discussed for >3mins.? @ -[No] Was critical care preformed (if so, how long)? @ -[No] Were there social determinants of health that impacted care today? How? (Homelessness, low income, unemployed, alcoholism, drug addiction, transportation, low edu. Level, literacy, decrease access to med. care, snf, rehab)? @ -[No] Was there de-escalation of care discussed even if they declined (Discuss DNR or withdrawal of care, Hospice)? DNR status @ -[No] What co-morbidities impacted this encounter? (DM, HTN, Smoking, COPD, CAD, Cancer, CVA, ARF, Chemo, Hep., AIDS, mental health diagnosis, sleep apnea, morbid obesity)? @ -[None] Was patient admitted / discharged? Hospital course, mention meds given and ro parker, prescriptions, significant lab abnormalities, going to OR and other pertinent info. @ -Patient was brought into emergency department with a complaint of shortness of breath patient's chest x-ray confirmed pulmonary edema. Patient was given Nitropaste and Lasix and he diuresis quite a bit is feeling slightly better but [facility] admitted the patient I consult to cardiology Undiagnosed new problem with uncertain prognosis? @ -[No] Drug Therapy requiring intensive monitoring for toxicity (Heparin, Nitro, Insulin, Cardizem)? @ -[No] Were any procedures done? @ -[No] Diagnosis/symptom? @ -Pulmonary edema Acute, or Chronic, or Acute on Chronic? @ -Acute Uncomplicated (without systemic symptoms) or Complicated (systemic symptoms)? @ -Complicated Side effects of treatment? @ -[No] Exacerbation, Progression, or Severe Exacerbation? @ -Severe exacerbation Poses a threat to life or bodily function? How? (Chest pain, USA, GA, pneumonia, PE, COPD, DKA, ARF, appy, cholecystitis, CVA, Diverticulitis, Homicidal, Suicidal, threat to staff... and all critical care pts) @ -Yes is complete hypoxia and then end organ dysfunction - Lab Data Result diagrams: 11/08/22 14:25 11/08/22 14:25 Lab Results 11/08/22 11/08/22 11/08/22 Range/Units 14:25 14:25 14:25 WBC 4.4 (3.8-10.6) k/uL RBC 2.17 L (4.30-5.90) m/uL Hgb 8.2 L (13.0-17.5) gm/dL Hct 24.9 L (39.0-53.0) % MCV 114.8 H D (80.0-100.0) fL MCH 37.8 H (25.0-35.0) pg MCHC 32.9 (31.0-37.0) g/dL RDW 20.1 H (11.5-15.5) % Plt Count 52 L (150-450) k/uL MPV 12.2 Neutrophils % 58 % Lymphocytes % 24 % Monocytes % 7 % Eosinophils % 8 % Basophils % 0 % Neutrophils # 2.5 (1.3-7.7) k/uL Lymphocytes # 1.0 (1.0-4.8) k/uL Monocytes # 0.3 (0-1.0) k/uL Eosinophils # 0.3 (0-0.7) k/uL Basophils # 0.0 (0-0.2) k/uL Manual Slide Review Performed Hypochromasia Slight Anisocytosis Moderate Macrocytosis Marked A Target Cells Present Tear Drop Cells Present Sodium 139 (137-145) mmol/L Potassium 2.9 L (3.5-5.1) mmol/L Chloride 107 (98-107) mmol/L Carbon Dioxide 28 (22-30) mmol/L Anion Gap 4 mmol/L BUN 17 (9-20) mg/dL Creatinine 1.47 H (0.66-1.25) mg/dL Est GFR (CKD-EPI)AfAm 51 (>60 ml/min/1.73 sqM) Est GFR (CKD-EPI)NonAf 44 (>60 ml/min/1.73 sqM) Glucose 125 H (74-99) mg/dL Lactic Ac Sepsis Rflx Plasma Lactic Acid Ismael 2.2 H* (0.7-2.0) mmol/L Calcium 8.3 L (8.4-10.2) mg/dL Magnesium (1.6-2.3) mg/dL Total Bilirubin 2.3 H (0.2-1.3) mg/dL AST 49 (17-59) U/L ALT 24 (4-49) U/L Alkaline Phosphatase 72 (38-126) U/L Troponin I (0.000-0.034) ng/mL NT-Pro-B Natriuret Pep pg/mL Total Protein 6.9 (6.3-8.2) g/dL Albumin 3.0 L (3.5-5.0) g/dL 11/08/22 11/08/22 11/08/22 Range/Units 14:25 14:25 14:25 WBC (3.8-10.6) k/uL RBC (4.30-5.90) m/uL Hgb (13.0-17.5) gm/dL Hct (39.0-53.0) % MCV (80.0-100.0) fL MCH (25.0-35.0) pg MCHC (31.0-37.0) g/dL RDW (11.5-15.5) % Plt Count (150-450) k/uL MPV Neutrophils % % Lymphocytes % % Monocytes % % Eosinophils % % Basophils % % Neutrophils # (1.3-7.7) k/uL Lymphocytes # (1.0-4.8) k/uL Monocytes # (0-1.0) k/uL Eosinophils # (0-0.7) k/uL Basophils # (0-0.2) k/uL Manual Slide Review Hypochromasia Anisocytosis Macrocytosis Target Cells Tear Drop Cells Sodium (137-145) mmol/L Potassium (3.5-5.1) mmol/L Chloride (98-107) mmol/L Carbon Dioxide (22-30) mmol/L Anion Gap mmol/L BUN (9-20) mg/dL Creatinine (0.66-1.25) mg/dL Est GFR (CKD-EPI)AfAm (>60 ml/min/1.73 sqM) Est GFR (CKD-EPI)NonAf (>60 ml/min/1.73 sqM) Glucose (74-99) mg/dL Lactic Ac Sepsis Rflx Plasma Lactic Acid Ismael (0.7-2.0) mmol/L Calcium (8.4-10.2) mg/dL Magnesium 1.6 (1.6-2.3) mg/dL Total Bilirubin (0.2-1.3) mg/dL AST (17-59) U/L ALT (4-49) U/L Alkaline Phosphatase (38-126) U/L Troponin I 0.022 (0.000-0.034) ng/mL NT-Pro-B Natriuret Pep 2210 pg/mL Total Protein (6.3-8.2) g/dL Albumin (3.5-5.0) g/dL 11/08/22 11/08/22 Range/Units 15:11 17:12 WBC (3.8-10.6) k/uL RBC (4.30-5.90) m/uL Hgb (13.0-17.5) gm/dL Hct (39.0-53.0) % MCV (80.0-100.0) fL MCH (25.0-35.0) pg MCHC (31.0-37.0) g/dL RDW (11.5-15.5) % Plt Count (150-450) k/uL MPV Neutrophils % % Lymphocytes % % Monocytes % % Eosinophils % % Basophils % % Neutrophils # (1.3-7.7) k/uL Lymphocytes # (1.0-4.8) k/uL Monocytes # (0-1.0) k/uL Eosinophils # (0-0.7) k/uL Basophils # (0-0.2) k/uL Manual Slide Review Hypochromasia Anisocytosis Macrocytosis Target Cells Tear Drop Cells Sodium (137-145) mmol/L Potassium (3.5-5.1) mmol/L Chloride (98-107) mmol/L Carbon Dioxide (22-30) mmol/L Anion Gap mmol/L BUN (9-20) mg/dL Creatinine (0.66-1.25) mg/dL Est GFR (CKD-EPI)AfAm (>60 ml/min/1.73 sqM) Est GFR (CKD-EPI)NonAf (>60 ml/min/1.73 sqM) Glucose (74-99) mg/dL Lactic Ac Sepsis Rflx Y Plasma Lactic Acid Ismael 1.8 (0.7-2.0) mmol/L Calcium (8.4-10.2) mg/dL Magnesium (1.6-2.3) mg/dL Total Bilirubin (0.2-1.3) mg/dL AST (17-59) U/L ALT (4-49) U/L Alkaline Phosphatase (38-126) U/L Troponin I (0.000-0.034) ng/mL NT-Pro-B Natriuret Pep pg/mL Total Protein (6.3-8.2) g/dL Albumin (3.5-5.0) g/dL Disposition Clinical Impression: Acute pulmonary edema Disposition: ADMITTED IP TO THIS HOSP Referrals: Balbir Arreaga MD [Primary Care Provider] - 1-2 days Time of Disposition: 19:11
[2022-11-08 21:13] LABS: Glucose,Whole Blood 126 mg/dL (70-110)
[2022-11-08] MEDS ORDERED: Potassium Replacement Protocol 1 EACH MISC MISCELLANE PRN (21:34)
[2022-11-08] MEDS ORDERED: Magnesium Replacement Protocol 1 EACH MISC MISCELLANE PRN (21:35)
[2022-11-08] MEDS: MAGNESIUM SULFATE-D5W PMX 1 GM in DEXTROSE/WATER 1 100ML.BAG IVPB SCH ×2 (21:53→22:57)
[2022-11-08] MEDS: TAMSULOSIN 0.4 MG CAP.ER.24H PO SCH (21:56)
[2022-11-08] MEDS: APIXABAN 2.5 MG TABLET PO SCH (21:56)
[2022-11-08] MEDS: POTASSIUM CHLORIDE ER 20 MEQ TAB.ER PO SCH ×3 (21:57→23:47)
[2022-11-08] MEDS: LATANOPROST 0.005% OPHTH DROPS 2.5 ML BTL BOTH EYES SCH (22:05)
[2022-11-08] MEDS: DORZOLAMIDE-TIMOLOL 2.23%/0.68 10ML BTL BOTH EYES SCH (22:05)
[2022-11-08] MEDS: FUROSEMIDE 10 MG/ML 10 ML VIAL IV SCH (23:47)
[2022-11-09 06:26] LABS: Glucose,Whole Blood 122 mg/dL (70-110)
[2022-11-09 07:39] LABS: African American GFR (CKD) 50 (>60 ml/min/1.73 sqM); Anion Gap 2 mmol/L; Blood Urea Nitrogen 17 mg/dL (9-20); Carbon Dioxide 33 mmol/L (22-30); Chloride 103 mmol/L (98-107); Glucose 104 mg/dL (74-99); Magnesium 1.8 mg/dL (1.6-2.3); Non-African American GFR(CKD) 44 (>60 ml/min/1.73 sqM); Potassium 3.3 mmol/L (3.5-5.1); Sodium 138 mmol/L (137-145)
[2022-11-09] MEDS ORDERED: POTASSIUM CHLORIDE ER 20 MEQ TAB.ER PO STA (08:36)
--- NOTE | 2022-11-09 08:40 | P.HPIM ---
History of Present Illness Patient is a 82-year-old male came in with complaints of shadows of breath orthopnea proximal nocturnal dyspnea found to be in congestive heart failure exacerbation. Patient had normal ejection fraction from echocardiogram that was done last month but had severe pulmonary hypertension and right-sided heart failure. Patient does have significant bilateral lower extremity edema. Patient uses 40 mg twice a day of Lasix patient is a 31 weight gain. Patient denied any fever chills chest x-ray showed CHF BNP is around 2200. REVIEW OF SYSTEMS: CONSTITUTIONAL: No fever, no malaise, no fatigue. HEENT: No recent visual problems or hearing problems. Denied any sore throat. CARDIOVASCULAR: no palpitations, no syncope. PULMONARY: no cough, no hemoptysis. GASTROINTESTINAL: No diarrhea, no nausea, no vomiting, no abdominal pain. NEUROLOGICAL: No headaches, no weakness, no numbness. HEMATOLOGICAL: Denies any bleeding or petechiae. GENITOURINARY: Denies any burning micturition, frequency, or urgency. MUSCULOSKELETAL/RHEUMATOLOGICAL: Denies any joint pain, swelling, or any muscle pain. ENDOCRINE: Denies any polyuria or polydipsia. The rest of the 14-point review of systems is negative. PHYSICAL EXAMINATION: GENERAL: The patient is alert and oriented x3, not in any acute distress. Well developed, well nourished. HEENT: Pupils are round and equally reacting to light. EOMI. No scleral icterus. No conjunctival pallor. Normocephalic, atraumatic. No pharyngeal erythema. No thyromegaly. CARDIOVASCULAR: S1 and S2 present. No murmurs, rubs, or gallops. PULMONARY: Chest is clear to auscultation, no wheezing or crackles. ABDOMEN: Soft, nontender, nondistended, normoactive bowel sounds. No palpable organomegaly. MUSCULOSKELETAL: No joint swelling or deformity. EXTREMITIES: No cyanosis, clubbing, or pedal edema. NEUROLOGICAL: Gross neurological examination did not reveal any focal deficits. SKIN: No rashes. Assessment and plan -Shortness of breath: Secondary to congestive heart failure chronic diastolic dysfunction with acute exacerbation patient will be switched to 60 mg IV 3 times a day of Lasix. -Chronic cor pulmonale with acute right-sided heart failure exacerbation: IV Lasix as mentioned above has severe pulmonary hypertension -Atrial fibrillation patient is presently rate controlled patient has proximal A. 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 COLON POLYPS, SKIN CANCER,uses cpap, new home o2 Last Myocardial Infarction Date:: 1999 History of Any Multi-Drug Resistant Organisms: None Reported Past Surgical History: Back Surgery, Joint Replacement, Orthopedic Surgery, Tonsillectomy Additional Past Surgical History / Comment(s): ORIF LEFT SHOULDER. TOTAL LEFT KNEE. BILATERAL CATARACTS/IMPLANTS. Past Anesthesia/Blood Transfusion Reactions: No Reported Reaction Additional Past Anesthesia/Blood Transfusion Reaction / Comment(s): no problems with prior with platelet infusion Date of Last Stent Placement:: 1999 Past Psychological History: No Psychological Hx Reported Smoking Status: Former smoker Past Alcohol Use History: Occasional Additional Past Alcohol Use History / Comment(s): SMOKED FOR 30 YRS, QUIT IN 1987, 2PPD. Past Drug Use History: None Reported - Past Family History Sister(s) Family Medical History: Cancer Additional Family Medical History / Comment(s): UTERINE CANCER. Brother(s) Family Medical History: Cancer Additional Family Medical History / Comment(s): PROSTATE CANCER. Medications and Allergies Home Medications Medication Instructions Recorded Confirmed Type Cyanocobalamin [Vitamin B-12] 500 mcg PO DAILY 12/11/17 11/08/22 History Latanoprost Ophth [Xalatan 0.005%] 1 drop BOTH EYES HS 12/11/17 11/08/22 History Multivit-Min/FA/Lycopen/Lutein 1 tab PO DAILY 07/12/20 11/08/22 History [Centrum Silver Men Tablet] Tamsulosin [Flomax] 0.4 mg PO HS 07/12/20 11/08/22 History Ferrous Sulfate [Iron (65 MG 325 mg PO DAILY 07/25/22 11/08/22 History Elemental)] Pioglitazone [Actos] 30 mg PO DAILY 07/25/22 11/08/22 History lisinopriL 2.5 mg PO DAILY 07/25/22 11/08/22 History Apixaban [Eliquis] 2.5 mg PO BID #60 tab 10/01/22 11/08/22 Rx Atorvastatin [Lipitor] 40 mg PO DAILY #90 tablet 10/01/22 11/08/22 Rx Albuterol Inhaler [Ventolin Hfa 2 puff INHALATION RT-Q6H PRN 11/08/22 11/08/22 History Inhaler] Dorzolamide/Timolol/Pf 1 drop BOTH EYES HS 11/08/22 11/08/22 History [Dorzolamide 2%-Timolol 0.5%] Furosemide [Lasix] 40 mg PO BID@0900,1600 11/08/22 11/08/22 History Allergies Allergy/AdvReac Type Severity Reaction Status Date / Time No Known Allergies Allergy Verified 11/08/22 17:53 Physical Exam Vitals: Vital Signs Temp Pulse Pulse Resp BP BP Pulse Ox 11/09/22 04:00 97.6 F 63 18 125/57 98 11/09/22 02:00 61 18 11/08/22 23:59 98 F 61 18 131/64 99 11/08/22 21:30 60 18 11/08/22 21:13 97.6 F 60 18 143/76 99 11/08/22 14:13 98.5 F 97 28 H 132/62 95 Intake and Output 11/08/22 11/09/22 11/09/22 22:59 06:59 14:59 Intake Total 210 Output Total 1325 Balance -1115 Intake: IV 10 0.9 10 Intake, IV Titration 200 Amount Magnesium Sulfate-D5w Pmx 200 1 gm In Dextrose/Water 1 100ml.bag @ 100 mls/hr IVPB Q1H BRET Rx#: [id number] Output: Urine 1325 Other: Voiding Method Urinal Urinal # Voids 1 Weight 117.48 kg 108 kg Results CBC & Chem 7: 11/08/22 14:25 11/09/22 07:00 Labs: Abnormal Lab Results - Last 24 Hours (Table) 11/08/22 11/08/22 11/08/22 Range/Units 14:25 14:25 14:25 RBC 2.17 L (4.30-5.90) m/uL Hgb 8.2 L (13.0-17.5) gm/dL Hct 24.9 L (39.0-53.0) % MCV 114.8 H D (80.0-100.0) fL MCH 37.8 H (25.0-35.0) pg RDW 20.1 H (11.5-15.5) % Plt Count 52 L (150-450) k/uL Macrocytosis Marked A Potassium 2.9 L (3.5-5.1) mmol/L Carbon Dioxide (22-30) mmol/L Creatinine 1.47 H (0.66-1.25) mg/dL Glucose 125 H (74-99) mg/dL POC Glucose (mg/dL) (70-110) mg/dL Plasma Lactic Acid Ismael 2.2 H* (0.7-2.0) mmol/L Calcium 8.3 L (8.4-10.2) mg/dL Total Bilirubin 2.3 H (0.2-1.3) mg/dL Albumin 3.0 L (3.5-5.0) g/dL 11/08/22 11/09/22 11/09/22 Range/Units 21:11 06:09 07:00 RBC (4.30-5.90) m/uL Hgb (13.0-17.5) gm/dL Hct (39.0-53.0) % MCV (80.0-100.0) fL MCH (25.0-35.0) pg RDW (11.5-15.5) % Plt Count (150-450) k/uL Macrocytosis Potassium 3.3 L (3.5-5.1) mmol/L Carbon Dioxide 33 H (22-30) mmol/L Creatinine 1.48 H (0.66-1.25) mg/dL Glucose 104 H (74-99) mg/dL POC Glucose (mg/dL) 126 H 122 H (70-110) mg/dL Plasma Lactic Acid Ismael (0.7-2.0) mmol/L Calcium 8.0 L (8.4-10.2) mg/dL Total Bilirubin (0.2-1.3) mg/dL Albumin (3.5-5.0) g/dL Thrombosis Risk Factor Assmnt - Choose All That Apply Any of the Below Risk Factors Present?: Yes Each Factor Represents 1 point: Abnormal pulmonary function (COPD), Swollen legs (current) Other Risk Factors: No Each Risk Factor Represents 3 Points: Age 75 years or older Other congenital or acquired thrombophilia - If yes, enter type in comment: No Thrombosis Risk Factor Assessment Total Risk Factor Score: 5 Thrombosis Risk Factor Assessment Level: High Risk
[2022-11-09] MEDS: FUROSEMIDE 10 MG/ML 10 ML VIAL IV SCH ×2 (08:57→16:07)
[2022-11-09] MEDS: FERROUS SULFATE 325 MG TAB PO SCH (09:01)
[2022-11-09] MEDS: CYANOCOBALAMIN 500 MCG TAB PO SCH (09:01)
[2022-11-09] MEDS: PIOGLITAZONE 30 MG TAB PO SCH (09:02)
[2022-11-09] MEDS: APIXABAN 2.5 MG TABLET PO SCH ×2 (09:02→21:33)
[2022-11-09] MEDS: ATORVASTATIN 40 MG TAB PO SCH (09:02)
[2022-11-09] MEDS: MULTIVITAMINS, THERA 1 EACH TAB PO SCH (09:02)
--- NOTE | 2022-11-09 09:38 | P.CRDCN ---
History of Present Illness Consult date: 11/09/22 History of present illness: HISTORY OF PRESENT ILLNESS: This is a 82-year-old male with a past medical history significant for hypertension, hyperlipidemia, diabetes, congestive heart failure, atrial fibrillation, and coronary artery disease with previous stenting of the RCA. Patient follows in the office with Dr. Zhao. We have been asked to see the patient in consultation for CHF. Patient examined at the bedside. patient presented to the hospital with a chief complaint of shortness of breath. He states he has been getting progressively short of breath over the past 3 days. He also reports increased in his lower extremity edema. Patient states he has been compliant with all of his medications at home. He also reports he has been compliant with a low-sodium diet. The patient was found to be in acute congestive heart failure and he has been started on IV Lasix. He states his shortness of breath and his lower extremity edema of both improved today. He denies any chest pain or pressure. He denies any dizziness or lightheadedness. * EKG reveals atrial fibrillation with controlled ventricular rate * Chest xray congestive heart failure superimposed on a background of COPD * Laboratory data: WBC 4.4. Hemoglobin 8.2. Platelet count 52. Sodium 138. Potassium 3.3. BUN 17. Creatinine 1.48. ProBNP 2210. Troponin 0.022. * Current home cardiac medications include lisinopril 2.5 mg daily, Lasix 40 mg twice a day, and Eliquis 2.5mg BID * Most recent echocardiogram obtained in September 2022 revealed ejection fraction 52%, severe pulmonary hypertension, moderate to severe MR * Patient underwent Lexiscan stress test in September 2022 which was negative for ischemia * Cardiac catheterization history: May 2004 revealing ejection fraction 50%, inferior hypokinesis, 30% mid LAD, 95% proximal RCA stenosis, and 70% mid RCA stenosis. Patient underwent stenting of the RCA REVIEW OF SYSTEMS: At the time of my exam: CONSTITUTIONAL: Denies fever or chills. HEENT: Denies blurred vision, vision changes, or eye pain. Denies hemoptysis CARDIOVASCULAR: Denies chest pain. Denies orthopnea. Denies PND. Denies palpitations RESPIRATORY: Denies shortness of breath. GASTROINTESTINAL: Denies abdominal pain. Denies nausea or vomiting. HEMATOLOGIC: Denies bleeding disorders. GENITOURINARY: Denies any blood in urine. SKIN: Denies pruitis. Denies rash. PHYSICAL EXAM: VITAL SIGNS: Reviewed. GENERAL: Well-developed in no acute distress. HEENT: Head is normocephalic. Pupils are equal, round. Sclerae anicteric. Mucous membranes of the mouth are moist. Neck supple. No JVD or thyromegaly LUNGS: Respirations even and unlabored. Lungs with mild expiratory wheezing throughout HEART: Irregular rate and rhythm. S1 and S2 heard. Systolic murmur noted. ABDOMEN: Soft. Nondistended. Nontender. EXTREMITIES: Normal range of motion. No clubbing or cyanosis. Peripheral pulses intact. 2+ bilateral lower extremity edema NEUROLOGIC: Awake and alert. Oriented x 3. ASSESSMENT: Shortness of breath Acute on chronic heart failure with preserved ejection fraction Severe pulmonary hypertension COPD Paroxysmal atrial fibrillation Coronary artery disease with previous stenting of the RCA, 2004 Hypertension Hyperlipidemia Diabetes PLAN: No need to repeat echocardiogram as this was performed last month Continue IV Lasix Daily weights, Accurate I and O, and monitoring of kidney function Continue additional cardiac medications Further recommendations pending patient's course Nurse practitioner note has been reviewed by physician. Signing provider agrees with the documented findings, assessment, and plan of care. Past Medical History Past Medical History: Cancer, Heart Failure, CVA/TIA, Diabetes Mellitus, Myocardial Infarction ([place]), Osteoarthritis (OA), Prostate Disorder, Sleep Apnea/CPAP/BIPAP Additional Past Medical History / Comment(s): 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 COLON POLYPS, SKIN CANCER,uses cpap, new home o2 Last Myocardial Infarction Date:: 1999 History of Any Multi-Drug Resistant Organisms: None Reported Past Surgical History: Back Surgery, Joint Replacement, Orthopedic Surgery, Tonsillectomy Additional Past Surgical History / Comment(s): ORIF LEFT SHOULDER. TOTAL LEFT KNEE. BILATERAL CATARACTS/IMPLANTS. Past Anesthesia/Blood Transfusion Reactions: No Reported Reaction Additional Past Anesthesia/Blood Transfusion Reaction / Comment(s): no problems with prior with platelet infusion Date of Last Stent Placement:: 1999 Past Psychological History: No Psychological Hx Reported Smoking Status: Former smoker Past Alcohol Use History: Occasional Additional Past Alcohol Use History / Comment(s): SMOKED FOR 30 YRS, QUIT IN 1987, 2PPD. Past Drug Use History: None Reported - Past Family History Sister(s) Family Medical History: Cancer Additional Family Medical History / Comment(s): UTERINE CANCER. Brother(s) Family Medical History: Cancer Additional Family Medical History / Comment(s): PROSTATE CANCER. Medications and Allergies Home Medications Medication Instructions Recorded Confirmed Type Cyanocobalamin [Vitamin B-12] 500 mcg PO DAILY 12/11/17 11/08/22 History Latanoprost Ophth [Xalatan 0.005%] 1 drop BOTH EYES HS 12/11/17 11/08/22 History Multivit-Min/FA/Lycopen/Lutein 1 tab PO DAILY 07/12/20 11/08/22 History [Centrum Silver Men Tablet] Tamsulosin [Flomax] 0.4 mg PO HS 07/12/20 11/08/22 History Ferrous Sulfate [Iron (65 MG 325 mg PO DAILY 07/25/22 11/08/22 History Elemental)] Pioglitazone [Actos] 30 mg PO DAILY 07/25/22 11/08/22 History lisinopriL 2.5 mg PO DAILY 07/25/22 11/08/22 History Apixaban [Eliquis] 2.5 mg PO BID #60 tab 10/01/22 11/08/22 Rx Atorvastatin [Lipitor] 40 mg PO DAILY #90 tablet 10/01/22 11/08/22 Rx Albuterol Inhaler [Ventolin Hfa 2 puff INHALATION RT-Q6H PRN 11/08/22 11/08/22 History Inhaler] Dorzolamide/Timolol/Pf 1 drop BOTH EYES HS 11/08/22 11/08/22 History [Dorzolamide 2%-Timolol 0.5%] Furosemide [Lasix] 40 mg PO BID@0900,1600 11/08/22 11/08/22 History Allergies Allergy/AdvReac Type Severity Reaction Status Date / Time No Known Allergies Allergy Verified 11/08/22 17:53 Physical Exam Vitals: Vital Signs Temp Pulse Pulse Resp BP BP Pulse Ox 11/09/22 04:00 97.6 F 63 18 125/57 98 11/09/22 02:00 61 18 11/08/22 23:59 98 F 61 18 131/64 99 11/08/22 21:30 60 18 11/08/22 21:13 97.6 F 60 18 143/76 99 11/08/22 14:13 98.5 F 97 28 H 132/62 95 Intake and Output 11/08/22 11/09/22 11/09/22 22:59 06:59 14:59 Intake Total 210 310 Output Total 1325 Balance -1115 310 Intake: IV 10 0.9 10 Intake, IV Titration 200 Amount Magnesium Sulfate-D5w Pmx 200 1 gm In Dextrose/Water 1 100ml.bag @ 100 mls/hr IVPB Q1H [facility] Rx#: [id number] Oral 310 Output: Urine 1325 Other: Voiding Method Urinal Urinal # Voids 1 Weight 117.48 kg 108 kg Results 11/08/22 14:25 11/09/22 07:00 Cardiac Enzymes 11/08/22 11/08/22 Range/Units 14:25 14:25 AST 49 (17-59) U/L Troponin I 0.022 (0.000-0.034) ng/mL CBC 11/08/22 Range/Units 14:25 WBC 4.4 (3.8-10.6) k/uL RBC 2.17 L (4.30-5.90) m/uL Hgb 8.2 L (13.0-17.5) gm/dL Hct 24.9 L (39.0-53.0) % Plt Count 52 L (150-450) k/uL Comprehensive Metabolic Panel 11/08/22 11/09/22 Range/Units 14:25 07:00 Sodium 139 138 (137-145) mmol/L Potassium 2.9 L 3.3 L (3.5-5.1) mmol/L Chloride 107 103 (98-107) mmol/L Carbon Dioxide 28 33 H (22-30) mmol/L BUN 17 17 (9-20) mg/dL Creatinine 1.47 H 1.48 H (0.66-1.25) mg/dL Glucose 125 H 104 H (74-99) mg/dL Calcium 8.3 L 8.0 L (8.4-10.2) mg/dL AST 49 (17-59) U/L ALT 24 (4-49) U/L Alkaline Phosphatase 72 (38-126) U/L Total Protein 6.9 (6.3-8.2) g/dL Albumin 3.0 L (3.5-5.0) g/dL Current Medications Generic Name Dose Route Start Last Admin Trade Name Freq PRN Reason Stop Dose Admin Albuterol Sulfate 2.5 mg 11/08/22 21:35 Albuterol Nebulized 2.5 Mg/3 Ml INHALATION RT-Q6H PRN Shortness Of Breath Apixaban 2.5 mg 11/08/22 21:45 11/09/22 09:02 Apixaban 2.5 Mg Tablet PO 2.5 mg BID [facility] Administration Protocol Atorvastatin Calcium 40 mg 11/09/22 09:00 11/09/22 09:02 Atorvastatin 40 Mg Tab PO 40 mg DAILY BRET Administration Cyanocobalamin 500 mcg 11/09/22 09:00 11/09/22 09:01 Cyanocobalamin 500 Mcg Tab PO 500 mcg DAILY BRET Administration Dorzolamide/Timolol 1 drops 11/08/22 21:45 11/08/22 22:05 Dorzolamide-Timolol 2.23%/0.68 10ml Btl BOTH EYES 1 drops HS BRET Administration Ferrous Sulfate 325 mg 11/09/22 09:00 11/09/22 09:01 Ferrous Sulfate 325 Mg Tab PO 325 mg DAILY BRET Administration Furosemide 60 mg 11/09/22 16:00 Furosemide 10 Mg/Ml 10 Ml Vial IV Q8HR BRET Latanoprost 1 drops 11/08/22 21:45 11/08/22 22:05 Latanoprost 0.005% Ophth Drops 2.5 Ml Btl BOTH EYES 1 drops HS BRET Administration Lisinopril 2.5 mg 11/09/22 09:00 11/09/22 09:02 Lisinopril 2.5 Mg Tab PO 2.5 mg DAILY BRET Administration Miscellaneous Information 1 each 11/08/22 21:34 Potassium Replacement Protocol 1 Each Misc MISCELLANE DAILY PRN Per Protocol Protocol Miscellaneous Information 1 each 11/08/22 21:35 Magnesium Replacement Protocol 1 Each Misc MISCELLANE DAILY PRN Per Protocol Protocol Multivitamins 1 each 11/09/22 09:00 11/09/22 09:02 Multivitamins, Thera 1 Each Tab PO 1 each DAILY BRET Administration Nitroglycerin 1 inch 11/09/22 22:00 Nitroglycerin Oint 1 Inch/Gm Packet TOPICAL QID BRET Pioglitazone HCl 30 mg 11/09/22 09:00 11/09/22 09:02 Pioglitazone 30 Mg Tab PO 30 mg DAILY BRET Administration Tamsulosin HCl 0.4 mg 11/08/22 21:45 11/08/22 21:56 Tamsulosin 0.4 Mg Cap.Er.24h PO 0.4 mg HS BRET Administration Intake and Output 11/08/22 11/09/22 11/09/22 22:59 06:59 14:59 Intake Total 210 310 Output Total 1325 Balance -1115 310 Intake: IV 10 0.9 10 Intake, IV Titration 200 Amount Magnesium Sulfate-D5w Pmx 200 1 gm In Dextrose/Water 1 100ml.bag @ 100 mls/hr IVPB Q1H [facility] Rx#: [id number] Oral 310 Output: Urine 1325 Other: Voiding Method Urinal Urinal # Voids 1 Weight 117.48 kg 108 kg 11/08/22 14:25 11/09/22 07:00
[2022-11-09 11:41] LABS: Glucose,Whole Blood 123 mg/dL (70-110)
[2022-11-09 16:18] LABS: Glucose,Whole Blood 157 mg/dL (70-110)
[2022-11-09 20:27] LABS: Glucose,Whole Blood 125 mg/dL (70-110)
[2022-11-09] MEDS: LATANOPROST 0.005% OPHTH DROPS 2.5 ML BTL BOTH EYES SCH (21:33)
[2022-11-09] MEDS: DORZOLAMIDE-TIMOLOL 2.23%/0.68 10ML BTL BOTH EYES SCH (21:33)
[2022-11-09] MEDS: TAMSULOSIN 0.4 MG CAP.ER.24H PO SCH (21:33)
[2022-11-09] MEDS ORDERED: NITROGLYCERIN OINT 1 INCH/GM PACKET TOPICAL SCH (22:00)
[2022-11-10] MEDS: FUROSEMIDE 10 MG/ML 10 ML VIAL IV SCH ×3 (01:33→16:13)
[2022-11-10 06:21] LABS: Glucose,Whole Blood 109 mg/dL (70-110)
--- NOTE | 2022-11-10 07:08 | P.PN ---
Subjective Progress Note Date: 11/10/22 Principal diagnosis: Shortness of breath and bilateral lower extremity is edema The patient is a pleasant 82-year-old gentleman with CAD and prior stenting as well as heart failure with preserved ejection fraction as well as COPD and paroxysmal atrial fibrillation as well as multiple comorbid conditions including obesity was admitted to the hospital with heart failure. November 102022 The patient was seen and evaluated this morning. He continues to have evidence of heart failure with right and left failure was evidence of severe bilateral lower extremity edema and also bilateral expiratory wheezing. He still short of breath and he continues to be on oxygen. Currently he is on Lasix 60 mg IV 3 times a day. Kidney function is not back yet. On examination he does have severe bilateral lower extremity edema and bilateral expiratory wheezing Assessment Heart failure exacerbation secondary to heart failure with preserved ejection fraction Coronary artery disease with prior revascularization Hypertension Dyslipidemia COPD Paroxysmal atrial fibrillation Plan The patient remains in failure Continue the current dose of Lasix IV. Follow-up with the renal function from the morning Monitor the kidney function and electrolytes Follow-up with the patient Objective - Vital Signs Vital signs: Vital Signs Temp 97.5 F L 11/10/22 04:00 Pulse 74 11/10/22 04:00 Resp 18 11/10/22 04:00 BP 110/72 11/10/22 04:00 Pulse Ox 98 11/10/22 04:00 FiO2 Intake & Output 11/09/22 11/10/22 11/10/22 18:59 06:59 18:59 Intake Total 1070 Output Total 400 600 Balance 670 -600 Weight 108 kg 115.3 kg Intake: Oral 1070 Output: Urine 400 600 Other: Voiding Method Urinal Urinal - Labs CBC & Chem 7: 11/08/22 14:25 11/09/22 07:00 Labs: Abnormal Lab Results - Last 24 Hours (Table) 11/09/22 11/09/22 11/09/22 Range/Units 07:00 11:39 16:16 Potassium 3.3 L (3.5-5.1) mmol/L Carbon Dioxide 33 H (22-30) mmol/L Creatinine 1.48 H (0.66-1.25) mg/dL Glucose 104 H (74-99) mg/dL POC Glucose (mg/dL) 123 H 157 H (70-110) mg/dL Calcium 8.0 L (8.4-10.2) mg/dL 11/09/22 Range/Units 20:25 Potassium (3.5-5.1) mmol/L Carbon Dioxide (22-30) mmol/L Creatinine (0.66-1.25) mg/dL Glucose (74-99) mg/dL POC Glucose (mg/dL) 125 H (70-110) mg/dL Calcium (8.4-10.2) mg/dL Microbiology - Last 24 Hours (Table) 11/08/22 14:25 Blood Culture - Preliminary Blood 11/08/22 14:25 Blood Culture - Preliminary Blood
[2022-11-10 08:33] LABS: African American GFR (CKD) 56 (>60 ml/min/1.73 sqM); Anion Gap 4 mmol/L; Blood Urea Nitrogen 19 mg/dL (9-20); Carbon Dioxide 31 mmol/L (22-30); Chloride 98 mmol/L (98-107); Glucose 96 mg/dL (74-99); Magnesium 1.6 mg/dL (1.6-2.3); Non-African American GFR(CKD) 49 (>60 ml/min/1.73 sqM); Potassium 3.3 mmol/L (3.5-5.1); Sodium 133 mmol/L (137-145)
[2022-11-10] MEDS: MULTIVITAMINS, THERA 1 EACH TAB PO SCH (09:22)
[2022-11-10] MEDS: FERROUS SULFATE 325 MG TAB PO SCH (09:22)
[2022-11-10] MEDS: APIXABAN 2.5 MG TABLET PO SCH ×2 (09:22→20:29)
[2022-11-10] MEDS: CYANOCOBALAMIN 500 MCG TAB PO SCH (09:22)
[2022-11-10] MEDS: ATORVASTATIN 40 MG TAB PO SCH (09:22)
[2022-11-10] MEDS: PIOGLITAZONE 30 MG TAB PO SCH (09:22)
[2022-11-10] MEDS ORDERED: Potassium Replacement Protocol 1 EACH MISC MISCELLANE PRN (09:26)
[2022-11-10] MEDS: POTASSIUM CHLORIDE ER 20 MEQ TAB.ER PO SCH ×3 (09:39→12:19)
[2022-11-10] MEDS ORDERED: IPRATROPIUM-ALBUTEROL 3 ML NEB INHALATION PRN (09:39)
[2022-11-10] MEDS ORDERED: methylPREDNISolone SOD SUCCI 40 MG/ML 1 ML VIAL IV STA (09:39)
[2022-11-10] MEDS ORDERED: POTASSIUM CHLORIDE ER 20 MEQ TAB.ER PO ONE (10:00)
--- NOTE | 2022-11-10 11:40 | P.PN ---
Subjective Patient is a 82-year-old male came in with complaints of shadows of breath orthopnea proximal nocturnal dyspnea found to be in congestive heart failure exacerbation. Patient had normal ejection fraction from echocardiogram that was done last month but had severe pulmonary hypertension and right-sided heart failure. Patient does have significant bilateral lower extremity edema. Patient uses 40 mg twice a day of Lasix patient is a 31 weight gain. Patient denied any fever chills chest x-ray showed CHF BNP is around 2200. 11/10/2022 Patient remains in heart failure still requiring IV Lasix although patient is mildly hyponatremic and hypokalemic potassium was replaced hyponatremia is expected to improve with Lasix patient mostly had right-sided heart failure and pulmonary hypertension which requires close monitoring of kidney function. Patient had the 1400 mL of urine output past 24 hours. May need higher dose of IV Lasix drip. Constitutional: Denied any fatigue denied any fever. Cardio vascular: denied any chest pain, palpitations Gastrointestinal denied any nausea vomiting Pulmonary: Denied any shortness of breath cough Neurologic denied any new focal deficits All inpatient medications were reviewed and appropriate changes in these medications as dictated in the interval history and assessment and plan. PHYSICAL EXAMINATION: GENERAL: The patient is alert and oriented x3, not in any acute distress. Well developed, well nourished. HEENT: Pupils are round and equally reacting to light. EOMI. No scleral icterus. No conjunctival pallor. Normocephalic, atraumatic. No pharyngeal erythema. No thyromegaly. CARDIOVASCULAR: S1 and S2 present. No murmurs, rubs, or gallops. PULMONARY: Chest is clear to auscultation, no wheezing or crackles. ABDOMEN: Soft, nontender, nondistended, normoactive bowel sounds. No palpable organomegaly. MUSCULOSKELETAL: No joint swelling or deformity. EXTREMITIES: No cyanosis, clubbing, or pedal edema. NEUROLOGICAL: Gross neurological examination did not reveal any focal deficits. SKIN: No rashes. Assessment and plan -Shortness of breath: Secondary to congestive heart failure chronic diastolic dysfunction with acute exacerbation patient will be switched to 60 mg IV 3 times a day of Lasix. -Chronic cor pulmonale with acute right-sided heart failure exacerbation: IV Lasix as mentioned above has severe pulmonary hypertension -Atrial fibrillation patient is presently rate controlled patient has proximal A. fib patient is on anticoagulation with Eliquis 2.5 which will be continued -Type 2 diabetes mellitus: Patient will be on sliding scale insulin Her current coronary artery disease -Benign prostatic hypertrophy -Sleep apnea on CPAP machine -CVA TIA in the past Objective - Vital Signs Vital signs: Vital Signs Temp 97.4 F L 11/10/22 08:00 Pulse 67 11/10/22 08:00 Resp 16 11/10/22 08:00 BP 122/63 11/10/22 08:00 Pulse Ox 98 11/10/22 08:10 FiO2 Intake & Output 11/09/22 11/10/22 11/10/22 18:59 06:59 18:59 Intake Total 1070 180 Output Total 465 204 2745 Balance 670 -600 -820 Weight 108 kg 115.3 kg Intake: Oral 1070 180 Output: Urine 930 366 0116 Other: Voiding Method Urinal Urinal Urinal - Labs CBC & Chem 7: 11/08/22 14:25 11/10/22 07:19 Labs: Abnormal Lab Results - Last 24 Hours (Table) 11/09/22 11/09/22 11/09/22 Range/Units 11:39 16:16 20:25 Sodium (137-145) mmol/L Potassium (3.5-5.1) mmol/L Carbon Dioxide (22-30) mmol/L Creatinine (0.66-1.25) mg/dL POC Glucose (mg/dL) 123 H 157 H 125 H (70-110) mg/dL Calcium (8.4-10.2) mg/dL 11/10/22 Range/Units 07:19 Sodium 133 L (137-145) mmol/L Potassium 3.3 L (3.5-5.1) mmol/L Carbon Dioxide 31 H (22-30) mmol/L Creatinine 1.35 H (0.66-1.25) mg/dL POC Glucose (mg/dL) (70-110) mg/dL Calcium 8.0 L (8.4-10.2) mg/dL Microbiology - Last 24 Hours (Table) 11/08/22 14:25 Blood Culture - Preliminary Blood 11/08/22 14:25 Blood Culture - Preliminary Blood
[2022-11-10 11:55] LABS: Glucose,Whole Blood 177 mg/dL (70-110)
[2022-11-10 16:35] LABS: Glucose,Whole Blood 226 mg/dL (70-110)
[2022-11-10 20:06] LABS: Glucose,Whole Blood 243 mg/dL (70-110)
[2022-11-10] MEDS: TAMSULOSIN 0.4 MG CAP.ER.24H PO SCH (20:29)
[2022-11-10] MEDS: LATANOPROST 0.005% OPHTH DROPS 2.5 ML BTL BOTH EYES SCH (20:30)
[2022-11-10] MEDS: DORZOLAMIDE-TIMOLOL 2.23%/0.68 10ML BTL BOTH EYES SCH (20:30)
[2022-11-10] MEDS: ALBUTEROL NEBULIZED 2.5 MG/3 ML INHALATION PRN (22:43)
[2022-11-10] MEDS: BUDESONIDE 0.5 MG/2 ML NEBU INHALATION SCH (22:43)
[2022-11-11] MEDS: FUROSEMIDE 10 MG/ML 10 ML VIAL IV SCH ×2 (01:35→09:15)
[2022-11-11 06:10] LABS: Glucose,Whole Blood 110 mg/dL (70-110)
[2022-11-11 08:15] LABS: African American GFR (CKD) 50 (>60 ml/min/1.73 sqM); Anion Gap 1 mmol/L; Blood Urea Nitrogen 23 mg/dL (9-20); Calcium 8.2 mg/dL (8.4-10.2); Carbon Dioxide 35 mmol/L (22-30); Chloride 97 mmol/L (98-107); Glucose 101 mg/dL (74-99); Magnesium 1.7 mg/dL (1.6-2.3); Non-African American GFR(CKD) 43 (>60 ml/min/1.73 sqM); Potassium 3.9 mmol/L (3.5-5.1); Sodium 133 mmol/L (137-145)
--- NOTE | 2022-11-11 09:07 | P.PN ---
Subjective Progress Note Date: 11/11/22 Principal diagnosis: Shortness of breath and bilateral lower extremity is edema The patient is a pleasant 82-year-old gentleman with CAD and prior stenting as well as heart failure with preserved ejection fraction as well as COPD and paroxysmal atrial fibrillation as well as multiple comorbid conditions including obesity was admitted to the hospital with heart failure. November 102022 The patient was seen and evaluated this morning. He continues to have evidence of heart failure with right and left failure was evidence of severe bilateral lower extremity edema and also bilateral expiratory wheezing. He still short of breath and he continues to be on oxygen. Currently he is on Lasix 60 mg IV 3 times a day. Kidney function is not back yet. 11/11/2022 The patient was seen and evaluated this morning. He still in failure with severe bilateral lower extremity edema and also he is hypoxic requiring oxygen. The kidney function is a slightly worse and the pressure is marginal. I'm going to decrease the dose of Lasix from 60 mg 3 times a day IV to 40 mg twice a day IV. Continue monitor the kidney function and electrolytes and I advised monitoring the patient in the hospital for additional 24 hours. On examination he does have severe bilateral lower extremity edema and bilateral expiratory wheezing Assessment Heart failure exacerbation secondary to heart failure with preserved ejection fraction Coronary artery disease with prior revascularization Marginal low blood pressure Dyslipidemia COPD Paroxysmal atrial fibrillation Plan Decrease the dose of Lasix Continue monitoring the patient for additional 24 hours Continue monitoring the kidney function and electrolytes Objective - Vital Signs Vital signs: Vital Signs Temp 97.8 F 11/10/22 20:00 Pulse 73 11/11/22 02:00 Resp 16 11/11/22 04:00 BP 99/58 11/11/22 04:00 Pulse Ox 96 11/11/22 04:00 FiO2 Intake & Output 11/10/22 11/11/22 11/11/22 18:59 06:59 18:59 Intake Total 540 240 Output Total 2100 1100 200 Balance -1560 -1100 40 Weight 114.5 kg Intake: Oral 540 240 Output: Urine 2100 1100 200 Other: Voiding Method Urinal Urinal - Labs CBC & Chem 7: 11/08/22 14:25 11/11/22 07:29 Labs: Abnormal Lab Results - Last 24 Hours (Table) 11/10/22 11/10/22 11/10/22 Range/Units 11:53 16:32 20:04 Sodium (137-145) mmol/L Chloride (98-107) mmol/L Carbon Dioxide (22-30) mmol/L BUN (9-20) mg/dL Creatinine (0.66-1.25) mg/dL Glucose (74-99) mg/dL POC Glucose (mg/dL) 177 H 226 H 243 H (70-110) mg/dL Calcium (8.4-10.2) mg/dL 11/11/22 Range/Units 07:29 Sodium 133 L (137-145) mmol/L Chloride 97 L (98-107) mmol/L Carbon Dioxide 35 H (22-30) mmol/L BUN 23 H (9-20) mg/dL Creatinine 1.49 H (0.66-1.25) mg/dL Glucose 101 H (74-99) mg/dL POC Glucose (mg/dL) (70-110) mg/dL Calcium 8.2 L (8.4-10.2) mg/dL Microbiology - Last 24 Hours (Table) 11/08/22 14:25 Blood Culture - Preliminary Blood 11/08/22 14:25 Blood Culture - Preliminary Blood
[2022-11-11] MEDS: PIOGLITAZONE 30 MG TAB PO SCH (09:10)
[2022-11-11] MEDS: ATORVASTATIN 40 MG TAB PO SCH (09:10)
[2022-11-11] MEDS: APIXABAN 2.5 MG TABLET PO SCH ×2 (09:10→21:11)
[2022-11-11] MEDS: CYANOCOBALAMIN 500 MCG TAB PO SCH (09:10)
[2022-11-11] MEDS: FERROUS SULFATE 325 MG TAB PO SCH (09:10)
[2022-11-11] MEDS: POTASSIUM CHLORIDE ER 20 MEQ TAB.ER PO SCH (09:10)
[2022-11-11] MEDS: MULTIVITAMINS, THERA 1 EACH TAB PO SCH (09:10)
[2022-11-11] MEDS: FUROSEMIDE 10 MG/ML 4 ML VIAL IV SCH ×2 (09:11→21:11)
[2022-11-11] MEDS: ALBUTEROL NEBULIZED 2.5 MG/3 ML INHALATION PRN (09:21)
[2022-11-11] MEDS: BUDESONIDE 0.5 MG/2 ML NEBU INHALATION SCH ×2 (09:22→21:57)
[2022-11-11] MEDS ORDERED: MAGNESIUM SULFATE-D5W PMX 1 GM in DEXTROSE/WATER 1 100ML.BAG IVPB ONE (09:30)
[2022-11-11 11:51] LABS: Glucose,Whole Blood 111 mg/dL (70-110)
--- NOTE | 2022-11-11 13:11 | P.PN ---
Subjective Progress Note Date: 11/11/22 Patient is a 82-year-old male came in with complaints of shadows of breath orthopnea proximal nocturnal dyspnea found to be in congestive heart failure exacerbation. Patient had normal ejection fraction from echocardiogram that was done last month but had severe pulmonary hypertension and right-sided heart failure. Patient does have significant bilateral lower extremity edema. Patient uses 40 mg twice a day of Lasix patient is a 31 weight gain. Patient denied any fever chills chest x-ray showed CHF BNP is around 2200. 11/10/2022 Patient remains in heart failure still requiring IV Lasix although patient is mildly hyponatremic and hypokalemic potassium was replaced hyponatremia is expected to improve with Lasix patient mostly had right-sided heart failure and pulmonary hypertension which requires close monitoring of kidney function. Patient had the 1400 mL of urine output past 24 hours. May need higher dose of IV Lasix drip. 11/11/2022 Patient evaluated today in the room. Continues on home oxygen of 2L nasal cannula. Lasix has been decreased to 40 mg Q12, creatinine up to 1.59. Patient was able to get up to the shower and tolerating. Continues with lower extremity peripheral edema and recommending compression stockings. Review of Systems Constitutional: Denied any fatigue denied any fever. Cardio vascular: denied any chest pain, palpitations Gastrointestinal denied any nausea vomiting Pulmonary: Denied any shortness of breath cough Neurologic denied any new focal deficits All inpatient medications were reviewed and appropriate changes in these medications as dictated in the interval history and assessment and plan. PHYSICAL EXAMINATION: GENERAL: The patient is alert and oriented x3, not in any acute distress. Well developed, well nourished. HEENT: Pupils are round and equally reacting to light. EOMI. No scleral icterus. No conjunctival pallor. Normocephalic, atraumatic. No pharyngeal erythema. No thyromegaly. CARDIOVASCULAR: S1 and S2 present. No murmurs, rubs, or gallops. PULMONARY: Chest is clear to auscultation, no wheezing or crackles. Diminished. ABDOMEN: Soft, nontender, nondistended, normoactive bowel sounds. No palpable organomegaly. Obese. MUSCULOSKELETAL: No joint swelling or deformity. EXTREMITIES: No cyanosis, clubbing, or pedal edema. +1 lower extremity pitting edema. NEUROLOGICAL: Gross neurological examination did not reveal any focal deficits. SKIN: No rashes. Assessment and plan -Shortness of breath: Secondary to congestive heart failure chronic diastolic dysfunction with acute exacerbation -Chronic cor pulmonale with acute right-sided heart failure exacerbation: has severe pulmonary hypertension -Atrial fibrillation patient is presently rate controlled patient has paroxysmal A. fib patient is on anticoagulation with Eliquis -Type 2 diabetes mellitus: Patient will be on sliding scale insulin -coronary artery disease -Chronic hypoxic respiratory failure on 2L of oxygen -Benign prostatic hypertrophy -Sleep apnea on CPAP machine -CVA TIA in the past Do Not Resuscitate/Do Not Intubate Plan Continue with IV lasix decreased to 40 mg Q12 with strict intake and output monitoring. Patient is being followed closely by cardiology. Recommending bilateral compression stockings extremity. Repeat labs in the a.m. The impression and plan of care has been dictated by Carolina Faye, Nurse Practitioner as directed. Dr. Andrea MD I have performed a history and physical examination and medical decision making of this patient, discussed the same with the dictator, and agree with the dictators assessment and plan as written, documented as a scribe. Based on total visit time, I have performed more than 50% of this visit. Objective - Vital Signs Vital signs: Vital Signs Temp 97.7 F 11/11/22 11:57 Pulse 61 11/11/22 11:57 Resp 18 11/11/22 11:57 BP 118/58 11/11/22 11:57 Pulse Ox 99 11/11/22 11:57 FiO2 Intake & Output 11/10/22 11/11/22 11/11/22 18:59 06:59 18:59 Intake Total 540 250 Output Total 2100 1100 600 Balance -1560 -1100 -350 Weight 114.5 kg Intake: IV 10 Invasive Line 1 10 Oral 540 240 Output: Urine 2100 1100 600 Other: Voiding Method Urinal Urinal Urinal - Labs CBC & Chem 7: 11/08/22 14:25 11/11/22 07:29 Labs: Abnormal Lab Results - Last 24 Hours (Table) 11/10/22 11/10/22 11/11/22 Range/Units 16:32 20:04 07:29 Sodium 133 L (137-145) mmol/L Chloride 97 L (98-107) mmol/L Carbon Dioxide 35 H (22-30) mmol/L BUN 23 H (9-20) mg/dL Creatinine 1.49 H (0.66-1.25) mg/dL Glucose 101 H (74-99) mg/dL POC Glucose (mg/dL) 226 H 243 H (70-110) mg/dL Calcium 8.2 L (8.4-10.2) mg/dL 11/11/22 Range/Units 11:49 Sodium (137-145) mmol/L Chloride (98-107) mmol/L Carbon Dioxide (22-30) mmol/L BUN (9-20) mg/dL Creatinine (0.66-1.25) mg/dL Glucose (74-99) mg/dL POC Glucose (mg/dL) 111 H (70-110) mg/dL Calcium (8.4-10.2) mg/dL Microbiology - Last 24 Hours (Table) 11/08/22 14:25 Blood Culture - Preliminary Blood 11/08/22 14:25 Blood Culture - Preliminary Blood Assessment and Plan Time with Patient: Less than 30
[2022-11-11 16:42] LABS: Glucose,Whole Blood 122 mg/dL (70-110)
[2022-11-11 19:58] LABS: Glucose,Whole Blood 187 mg/dL (70-110)
[2022-11-11] MEDS: TAMSULOSIN 0.4 MG CAP.ER.24H PO SCH (21:11)
[2022-11-11] MEDS: DORZOLAMIDE-TIMOLOL 2.23%/0.68 10ML BTL BOTH EYES SCH (21:11)
[2022-11-11] MEDS: LATANOPROST 0.005% OPHTH DROPS 2.5 ML BTL BOTH EYES SCH (21:12)
[2022-11-12 06:21] LABS: Glucose,Whole Blood 131 mg/dL (70-110)
[2022-11-12 08:25] LABS: Anisocytosis Moderate; Basophils # (A) 0.1 k/uL (0-0.2); Basophils % (A) 1 %; Eosinophils # (A) 0.5 k/uL (0-0.7); Eosinophils % (A) 8 %; HCT 24.8 % (39.0-53.0); Hypochromasia Slight; Lymphocytes # (A) 1.6 k/uL (1.0-4.8); Lymphocytes % (A) 24 %; MCH 37.8 pg (25.0-35.0); MCHC 32.2 g/dL (31.0-37.0); MCV 117.3 fL (80.0-100.0); Macrocytosis Marked; Monocytes # (A) 0.5 k/uL (0-1.0); Monocytes % (A) 7 %; Neutrophils # (A) 3.9 k/uL (1.3-7.7); Neutrophils % (A) 58 %; RBC 2.12 m/uL (4.30-5.90); RDW 20.3 % (11.5-15.5); WBC 6.8 k/uL (3.8-10.6)
[2022-11-12] MEDS: FUROSEMIDE 10 MG/ML 4 ML VIAL IV SCH (08:36)
[2022-11-12] MEDS: FAMOTIDINE 20 MG TAB PO SCH (08:37)
[2022-11-12] MEDS: FERROUS SULFATE 325 MG TAB PO SCH (08:37)
[2022-11-12] MEDS: POTASSIUM CHLORIDE ER 20 MEQ TAB.ER PO SCH (08:37)
[2022-11-12] MEDS: ATORVASTATIN 40 MG TAB PO SCH (08:37)
[2022-11-12] MEDS: PIOGLITAZONE 30 MG TAB PO SCH (08:37)
[2022-11-12] MEDS: CYANOCOBALAMIN 500 MCG TAB PO SCH (08:37)
[2022-11-12] MEDS: MULTIVITAMINS, THERA 1 EACH TAB PO SCH (08:37)
[2022-11-12] MEDS: APIXABAN 2.5 MG TABLET PO SCH ×2 (08:37→21:27)
[2022-11-12 08:48] LABS: Platelet Count 57 k/uL (150-450)
[2022-11-12 08:51] LABS: African American GFR (CKD) 41 (>60 ml/min/1.73 sqM); Anion Gap 4 mmol/L; Blood Urea Nitrogen 29 mg/dL (9-20); Calcium 7.9 mg/dL (8.4-10.2); Carbon Dioxide 34 mmol/L (22-30); Chloride 94 mmol/L (98-107); Glucose 119 mg/dL (74-99); Magnesium 1.9 mg/dL (1.6-2.3); Non-African American GFR(CKD) 36 (>60 ml/min/1.73 sqM); Potassium 4.1 mmol/L (3.5-5.1); Sodium 132 mmol/L (137-145)
[2022-11-12] MEDS: BUDESONIDE 0.5 MG/2 ML NEBU INHALATION SCH ×2 (09:24→20:50)
[2022-11-12 11:46] LABS: Glucose,Whole Blood 127 mg/dL (70-110)
[2022-11-12] MEDS: INSULIN ASPART (NovoLOG) 100 UNIT/ML VIAL SQ SCH ×3 (11:54→21:29)
[2022-11-12] MEDS: IPRATROPIUM-ALBUTEROL 3 ML NEB INHALATION SCH ×2 (11:55→20:50)
[2022-11-12] MEDS: methylPREDNISolone SOD SUCCI 40 MG/ML 1 ML VIAL IV SCH ×2 (11:59→17:19)
[2022-11-12] MEDS: FUROSEMIDE 100 MG in SODIUM CHLORIDE 0.9% 90 ML IV SCH (13:21)
--- NOTE | 2022-11-12 13:21 | PN ---
PROGRESS NOTE DATE OF SERVICE: 11/12/2022 SUBJECTIVE: This is an 82-year-old gentleman, who was admitted with CHF acute exacerbation and is on IV diuretics. The patient is complaining of lack of improvement. The patient also had possible chronic cor pulmonale as well. The patient has severe pulmonary hypertension. There is no history of any fever, rigors, or chills at this time. PAST MEDICAL HISTORY: Reviewed. REVIEW OF SYSTEMS: A 14-point review of systems is negative except as mentioned earlier. CURRENT MEDICATIONS: Reviewed and include DuoNeb, and the rest of the doses and rest of medications are reviewed and noted. PHYSICAL EXAMINATION: VITAL SIGNS: Pulse is 75, blood pressure 158/70, respirations 22. HEENT: Conjunctivae normal. NECK: No jugular venous distention. CARDIOVASCULAR: S1 and S2 muffled. RESPIRATIONS: Bilateral scattered rhonchi and expiratory wheezing also present. ABDOMEN: Soft, obese. LEGS: Bilateral leg edema. NERVOUS SYSTEM: No focal deficit. LABORATORY DATA: Hemoglobin 8. Rest of the labs are noted. MCV 117. ASSESSMENT: 1. Congestive heart failure, acute exacerbation. 2. Cor pulmonale. 3. Possible chronic obstructive pulmonary disease. 4. Mild pancytopenia. 5. Hyponatremia. 6. History of congestive heart failure. 7. Diabetes mellitus, type 2. 8. Degenerative joint disease. 9. Multiple medical issues. RECOMMENDATIONS AND DISCUSSION: This is an 82-year-old gentleman, who presented with multiple complex medical issues. At this time, I recommend continue the current symptomatic treatment with IV Lasix. Follow closely with Cardiology. I would recommend bronchodilators and a short course of steroids, and consult Dr. Hamilton also. At this point, the family wanted the transfer to [facility] apparently. I would also recommend Nephrology consultation to monitor renal functions and per family's request, we will contact [facility], and continue to monitor. Otherwise, see orders for further details. Prognosis is extremely guarded, which I discussed at length with multiple members of family including the son at the bedside. MMREEDL / KENZIEN: [id number] /
[2022-11-12] MEDS: metOLazone 5 MG TAB PO SCH (13:22)
--- NOTE | 2022-11-12 13:35 | P.PN ---
Subjective Progress Note Date: 11/12/22 Shortness of breath and bilateral lower extremity is edema The patient is a pleasant 82-year-old gentleman with CAD and prior stenting as well as heart failure with preserved ejection fraction as well as COPD and paroxysmal atrial fibrillation as well as multiple comorbid conditions including obesity was admitted to the hospital with heart failure. November 102022 The patient was seen and evaluated this morning. He continues to have evidence of heart failure with right and left failure was evidence of severe bilateral lower extremity edema and also bilateral expiratory wheezing. He still short of breath and he continues to be on oxygen. Currently he is on Lasix 60 mg IV 3 times a day. Kidney function is not back yet. 11/11/2022 The patient was seen and evaluated this morning. He still in failure with severe bilateral lower extremity edema and also he is hypoxic requiring oxygen. The kidney function is a slightly worse and the pressure is marginal. I'm going to decrease the dose of Lasix from 60 mg 3 times a day IV to 40 mg twice a day IV. Continue monitor the kidney function and electrolytes and I advised monitoring the patient in the hospital for additional 24 hours. 11/12 Patient continues to have difficulty breathing with wheezing. He states he just completed treatment and is under treatment for COPD exacerbation. Heart rate is controlled. Heart rate in the 60s, blood pressure 152/72, pulse ox 90% on 2 L nasal cannula. WBC 6.8, hemoglobin 8, platelet count 57. Sodium 132, potassium 4.1, BUN 29 creatinine 1.74.patient is currently on IV Lasix 40 mg every 12 hour s. On examination he does have severe bilateral lower extremity edema and bilateral expiratory wheezing Assessment Heart failure exacerbation secondary to heart failure with preserved ejection fraction Coronary artery disease with prior revascularization Marginal low blood pressure Dyslipidemia COPD exacerbation Paroxysmal atrial fibrillation Thrombocytopenia Plan Respiratory symptoms seem to be more COPD exacerbation. From a cardiac perspective, patient is stable and cardiology will sign off and follow on an as- needed basis. Nurse practitioner note has been reviewed, I agree with the documented findings and plan of care. Patient was seen and examined. Objective - Vital Signs Vital signs: Vital Signs Temp 98.3 F 11/12/22 08:00 Pulse 64 11/12/22 09:24 Resp 18 11/12/22 08:00 BP 105/63 11/12/22 08:00 Pulse Ox 95 11/12/22 08:00 FiO2 Intake & Output 11/11/22 11/12/22 11/12/22 18:59 06:59 18:59 Intake Total 620 270 10 Output Total 600 350 Balance 20 -80 10 Weight 116.9 kg Intake: IV 20 20 10 Invasive Line 1 20 20 10 Oral 600 250 Output: Urine 600 350 Other: Voiding Method Urinal Urinal - Labs CBC & Chem 7: 11/12/22 07:50 11/12/22 07:50 Labs: Abnormal Lab Results - Last 24 Hours (Table) 11/11/22 11/11/22 11/11/22 Range/Units 11:49 16:41 19:54 RBC (4.30-5.90) m/uL Hgb (13.0-17.5) gm/dL Hct (39.0-53.0) % MCV (80.0-100.0) fL MCH (25.0-35.0) pg RDW (11.5-15.5) % Plt Count (150-450) k/uL Macrocytosis Sodium (137-145) mmol/L Chloride (98-107) mmol/L Carbon Dioxide (22-30) mmol/L BUN (9-20) mg/dL Creatinine (0.66-1.25) mg/dL Glucose (74-99) mg/dL POC Glucose (mg/dL) 111 H 122 H 187 H (70-110) mg/dL Calcium (8.4-10.2) mg/dL 11/12/22 11/12/22 11/12/22 Range/Units 06:13 07:50 07:50 RBC 2.12 L (4.30-5.90) m/uL Hgb 8.0 L (13.0-17.5) gm/dL Hct 24.8 L (39.0-53.0) % MCV 117.3 H (80.0-100.0) fL MCH 37.8 H (25.0-35.0) pg RDW 20.3 H (11.5-15.5) % Plt Count 57 L (150-450) k/uL Macrocytosis Marked A Sodium 132 L (137-145) mmol/L Chloride 94 L (98-107) mmol/L Carbon Dioxide 34 H (22-30) mmol/L BUN 29 H (9-20) mg/dL Creatinine 1.74 H (0.66-1.25) mg/dL Glucose 119 H (74-99) mg/dL POC Glucose (mg/dL) 131 H (70-110) mg/dL Calcium 7.9 L (8.4-10.2) mg/dL Microbiology - Last 24 Hours (Table) 11/08/22 14:25 Blood Culture - Preliminary Blood 11/08/22 14:25 Blood Culture - Preliminary Blood
--- NOTE | 2022-11-12 14:01 | P.CNPUL ---
History of Present Illness Consult date: 11/12/22 Reason for consult: dyspnea History of present illness: This is an 82-year-old the patient was hospitalized 2 days back because of shortness of breath, orthopnea, paroxysmal nocturnal dyspnea and significant edema in the lower extremity bilaterally. The patient is morbidly obese with a BMI of 40.4. The patient has obstructive sleep apnea. The patient also has chronic kidney disease, stage III, diabetes mellitus type 2, chronic into fibril lation and signs of chronic right-sided heart failure. The patient is also [id number] smoking history. He was not diagnosed having COPD in the past. The maternal Lasix on outpatient basis. Since his admission, the patient denies having any major improvement. Continues to have shortness of breath cough and congestion and extensive edema and his scrotum, abdomen and lower oximetry is bilaterally. Based on that, Pulmicort consultation was requested. The patient is on long-term and coagulation with Eliquis. The patient has no chest pain. No syncope. He is producing urine output and the patient has been negative fluid balance over the past 24 hours. Nevertheless, the balance of the fluid has not been enough to improve any of his symptoms. His chest x-ray at time of admission was consistent with CHF with bilateral pleural effusions and cardiac megaly and bibasilar pulmonary infiltrates. There is evidence of diffuse interstitial pattern. Blood work from today shows a GFR of 36, BUN is 29 with a creatinine of 1.7 and a sodium level is at 132. The discomfort at 6.8 with a hemoglobin of 8 and a platelet count of 57. Glucose at 127. Echocardiogram showed LV systolic function, borderline normal, dilated RV, severe pulmonary hypertension and moderate to severe mitral regurgitation and moderate degree of tricuspid regurgitation. The estimated the right-sided pressure was 64 mmHg. Review of Systems Constitutional: Reports daytime sleepiness, Reports fatigue, Reports weakness, Reports weight gain Eyes: denies as per HPI, denies blurred vision, denies bulging eye, denies decreased vision, denies diplopia, denies discharge, denies dry eye, denies irritation, denies itching, denies pain, denies photophobia, denies loss of peripheral vision, denies loss of vision, denies tunnel vision/blind spots Ears: deny: decreased hearing, ear discharge, earache, tinnitus Ears, nose, mouth and throat: Reports as per HPI Breasts: absent: as per HPI, gynecomastia Cardiovascular: Reports decreased exercise tolerance, Reports dyspnea on exertion, Reports edema, Reports irregular heart beat, Reports leg edema, Repor ts paroxysmal nocturnal dyspnea, Reports shortness of breath Respiratory: Reports congestion, Reports dyspnea, Reports home oxygen, Reports sleep apnea, Reports snoring, Reports wheezing Gastrointestinal: Reports as per HPI Genitourinary: Reports as per HPI Musculoskeletal: Reports as per HPI Musculoskeletal: bilateral: ankle swelling, absent: ankle pain, ankle stiffness Integumentary: Reports as per HPI Neurological: Reports as per HPI Psychiatric: Reports as per HPI Endocrine: Reports as per HPI, Reports fatigue Hematologic/Lymphatic: Reports as per HPI Allergic/Immunologic: Reports as per HPI Past Medical History Past Medical History: Cancer, Heart Failure, CVA/TIA, Diabetes Mellitus, Myocardial Infarction ([place]), Osteoarthritis (OA), Prostate Disorder, Sleep Apnea/CPAP/BIPAP Additional Past Medical History / Comment(s): 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 COLON POLYPS, SKIN CANCER,uses cpap, new home o2 Last Myocardial Infarction Date:: 1999 History of Any Multi-Drug Resistant Organisms: None Reported Past Surgical History: Back Surgery, Joint Replacement, Orthopedic Surgery, Tonsillectomy Additional Past Surgical History / Comment(s): ORIF LEFT SHOULDER. TOTAL LEFT KNEE. BILATERAL CATARACTS/IMPLANTS. Past Anesthesia/Blood Transfusion Reactions: No Reported Reaction Additional Past Anesthesia/Blood Transfusion Reaction / Comment(s): no problems with prior with platelet infusion Date of Last Stent Placement:: 1999 Past Psychological History: No Psychological Hx Reported Smoking Status: Former smoker Past Alcohol Use History: Occasional Additional Past Alcohol Use History / Comment(s): SMOKED FOR 30 YRS, QUIT IN 1987, 2PPD. Past Drug Use History: None Reported - Past Family History Sister(s) Family Medical History: Cancer Additional Family Medical History / Comment(s): UTERINE CANCER. Brother(s) Family Medical History: Cancer Additional Family Medical History / Comment(s): PROSTATE CANCER. Medications and Allergies Home Medications Medication Instructions Recorded Confirmed Type Cyanocobalamin [Vitamin B-12] 500 mcg PO DAILY 12/11/17 11/08/22 History Latanoprost Ophth [Xalatan 0.005%] 1 drop BOTH EYES HS 12/11/17 11/08/22 History Multivit-Min/FA/Lycopen/Lutein 1 tab PO DAILY 07/12/20 11/08/22 History [Centrum Silver Men Tablet] Tamsulosin [Flomax] 0.4 mg PO HS 07/12/20 11/08/22 History Ferrous Sulfate [Iron (65 MG 325 mg PO DAILY 07/25/22 11/08/22 History Elemental)] Pioglitazone [Actos] 30 mg PO DAILY 07/25/22 11/08/22 History lisinopriL 2.5 mg PO DAILY 07/25/22 11/08/22 History Apixaban [Eliquis] 2.5 mg PO BID #60 tab 10/01/22 11/08/22 Rx Atorvastatin [Lipitor] 40 mg PO DAILY #90 tablet 10/01/22 11/08/22 Rx Albuterol Inhaler [Ventolin Hfa 2 puff INHALATION RT-Q6H PRN 11/08/22 11/08/22 History Inhaler] Dorzolamide/Timolol/Pf 1 drop BOTH EYES HS 11/08/22 11/08/22 History [Dorzolamide 2%-Timolol 0.5%] Furosemide [Lasix] 40 mg PO BID@0900,1600 11/08/22 11/08/22 History Allergies Allergy/AdvReac Type Severity Reaction Status Date / Time No Known Allergies Allergy Verified 11/08/22 17:53 Physical Exam Vitals: Vital Signs Temp Pulse Pulse Resp BP Pulse Ox 11/12/22 12:05 64 11/12/22 12:00 97.9 F 75 22 152/72 98 11/12/22 11:55 64 11/12/22 11:34 101 H 18 11/12/22 09:36 64 11/12/22 09:24 64 11/12/22 08:00 98.3 F 101 H 18 105/63 95 11/12/22 04:00 98.1 F 68 20 138/78 97 11/12/22 02:00 69 18 11/12/22 00:00 98.2 F 69 18 117/68 93 L 11/11/22 20:00 97.5 F L 67 18 132/72 99 11/11/22 19:46 72 17 11/11/22 15:48 98.2 F 65 17 114/64 100 11/11/22 14:59 18 Intake and Output 11/11/22 11/12/22 11/12/22 22:59 06:59 14:59 Intake Total 440 10 20 Output Total 350 950 Balance 440 -340 -930 Intake: IV 10 10 20 Invasive Line 1 10 10 20 Oral 430 Output: Urine 350 950 Other: Voiding Method Urinal Urinal Weight 116.9 kg Morbidly obese, calm and comfortable at 2 L of Oxymizer nasal cannula, the body mass index is 40.4 Head exam was generally normal. There was no scleral icterus or corneal arcus. Mucous membranes were moist. Neck was supple and without jugular venous distension, thyromegaly, or carotid bruits. Carotids were easily palpable bilaterally. There was no adenopathy. Lungs sounds are diminished bilaterally along with scattered Wheeze Heart sounds are distant, irregular, positive S1-S2 Abdomen is distended soft nontender and there is abdominal wall edema. No di rect tenderness. No rebound tenderness. No guarding Extremities revealed +2-3 pitting edema and there is no cyanosis or clubbing Examination of the skin revealed no evidence of significant rashes, suspicious appearing nevi or other concerning lesions. Neurologically, the patient is awake and alert and the patient does not have any focal neurological deficit. Cranial nerves are essentially intact. Results - Laboratory Findings CBC and BMP: 11/12/22 07:50 11/12/22 07:50 Abnormal lab findings: Abnormal Labs 11/08/22 11/08/22 11/08/22 14:25 14:25 14:25 RBC 2.17 L Hgb 8.2 L Hct 24.9 L MCV 114.8 H D MCH 37.8 H RDW 20.1 H Plt Count 52 L Macrocytosis Marked A Sodium Potassium 2.9 L Chloride Carbon Dioxide BUN Creatinine 1.47 H Glucose 125 H POC Glucose (mg/dL) Plasma Lactic Acid Ismael 2.2 H* Calcium 8.3 L Total Bilirubin 2.3 H Albumin 3.0 L 11/08/22 11/09/22 11/09/22 21:11 06:09 07:00 RBC Hgb Hct MCV MCH RDW Plt Count Macrocytosis Sodium Potassium 3.3 L Chloride Carbon Dioxide 33 H BUN Creatinine 1.48 H Glucose 104 H POC Glucose (mg/dL) 126 H 122 H Plasma Lactic Acid Ismael Calcium 8.0 L Total Bilirubin Albumin 11/09/22 11/09/22 11/09/22 11:39 16:16 20:25 RBC Hgb Hct MCV MCH RDW Plt Count Macrocytosis Sodium Potassium Chloride Carbon Dioxide BUN Creatinine Glucose POC Glucose (mg/dL) 123 H 157 H 125 H Plasma Lactic Acid Ismael Calcium Total Bilirubin Albumin 11/10/22 11/10/22 11/10/22 07:19 11:53 16:32 RBC Hgb Hct MCV MCH RDW Plt Count Macrocytosis Sodium 133 L Potassium 3.3 L Chloride Carbon Dioxide 31 H BUN Creatinine 1.35 H Glucose POC Glucose (mg/dL) 177 H 226 H Plasma Lactic Acid Ismael Calcium 8.0 L Total Bilirubin Albumin 11/10/22 11/11/22 11/11/22 20:04 07:29 11:49 RBC Hgb Hct MCV MCH RDW Plt Count Macrocytosis Sodium 133 L Potassium Chloride 97 L Carbon Dioxide 35 H BUN 23 H Creatinine 1.49 H Glucose 101 H POC Glucose (mg/dL) 243 H 111 H Plasma Lactic Acid Ismael Calcium 8.2 L Total Bilirubin Albumin 11/11/22 11/11/22 11/12/22 16:41 19:54 06:13 RBC Hgb Hct MCV MCH RDW Plt Count Macrocytosis Sodium Potassium Chloride Carbon Dioxide BUN Creatinine Glucose POC Glucose (mg/dL) 122 H 187 H 131 H Plasma Lactic Acid Ismael Calcium Total Bilirubin Albumin 11/12/22 11/12/22 11/12/22 07:50 07:50 11:43 RBC 2.12 L Hgb 8.0 L Hct 24.8 L MCV 117.3 H MCH 37.8 H RDW 20.3 H Plt Count 57 L Macrocytosis Marked A Sodium 132 L Potassium Chloride 94 L Carbon Dioxide 34 H BUN 29 H Creatinine 1.74 H Glucose 119 H POC Glucose (mg/dL) 127 H Plasma Lactic Acid Ismael Calcium 7.9 L Total Bilirubin Albumin - Diagnostic Findings Chest x-ray: image reviewed Assessment and Plan Plan: Acute on chronic dyspnea with signs of right-sided heart failure/cor pulmonale with massive fluid overload. There may be also a component of valvular heart disease with moderate to severe mitral regurgitation as evidenced on the echo cardiogram Mitral regurgitation, moderately severe. Severe pulmonary hypertension with estimated PA pressure of 64 Chronic lower extremity edema with interval worsening of fluid balance of massive fluid overload Chronic stage III kidney disease Diabetes mellitus type 2 Obstructive sleep apnea maintained on CPAP therapy on outpatient basis Previous history of CVA without any residual deficits Colonic polyps Skin cancer Chronic hypoxic respiratory failure and the patient has been on O2 on outpatient basis Chronic into fibrillation maintained on anticoagulation with Eliquis COPD Mild dysplasia with secondary anemia and thrombocytopenia Plan Switch this patient to Lasix drip at 5 mg an hour in combination with Zaroxolyn 5 mg by mouth twice a day Fluid restriction Monitor input output Monitor renal function and electrolytes Obtain a nephrology consultation Liquid Flavor Compounder on the case Titrate oxygen flow to maintain saturation above 90% Loud the patient uses home CPAP unit
[2022-11-12 16:30] LABS: Glucose,Whole Blood 217 mg/dL (70-110)
[2022-11-12 16:49] LABS: Appearance,Urine Clear (Clear); Bilirubin,Urine Negative (Negative); Blood,Urine Negative (Negative); Color,Urine Light Yellow; Glucose,Urine (UA) Negative (Negative); Ketones,Urine Negative (Negative); Leukocyte Esterase,Urine Negative (Negative); Nitrite,Urine Negative (Negative); Protein,Urine Negative (Negative); Specific Gravity,Urine 1.005 (1.001-1.035); Urobilinogen,Urine <2.0 mg/dL (<2.0)
[2022-11-12 19:58] LABS: Glucose,Whole Blood 246 mg/dL (70-110)
[2022-11-12] MEDS: TAMSULOSIN 0.4 MG CAP.ER.24H PO SCH (21:27)
[2022-11-12] MEDS: LATANOPROST 0.005% OPHTH DROPS 2.5 ML BTL BOTH EYES SCH (21:28)
[2022-11-12] MEDS: DORZOLAMIDE-TIMOLOL 2.23%/0.68 10ML BTL BOTH EYES SCH (21:28)
[2022-11-13] MEDS: methylPREDNISolone SOD SUCCI 40 MG/ML 1 ML VIAL IV SCH ×5 (00:58→22:53)
[2022-11-13 05:59] LABS: Glucose,Whole Blood 152 mg/dL (70-110)
[2022-11-13] MEDS: INSULIN ASPART (NovoLOG) 100 UNIT/ML VIAL SQ SCH ×4 (06:54→20:48)
[2022-11-13] MEDS: FUROSEMIDE 100 MG in SODIUM CHLORIDE 0.9% 90 ML IV SCH (06:56)
[2022-11-13] MEDS: ATORVASTATIN 40 MG TAB PO SCH (08:11)
[2022-11-13] MEDS: APIXABAN 2.5 MG TABLET PO SCH ×2 (08:11→20:46)
[2022-11-13] MEDS: FAMOTIDINE 20 MG TAB PO SCH (08:11)
[2022-11-13] MEDS: metOLazone 5 MG TAB PO SCH (08:11)
[2022-11-13] MEDS: CYANOCOBALAMIN 500 MCG TAB PO SCH (08:11)
[2022-11-13] MEDS: FERROUS SULFATE 325 MG TAB PO SCH (08:11)
[2022-11-13] MEDS: MULTIVITAMINS, THERA 1 EACH TAB PO SCH (08:11)
[2022-11-13] MEDS: PIOGLITAZONE 30 MG TAB PO SCH (08:11)
[2022-11-13] MEDS: POTASSIUM CHLORIDE ER 20 MEQ TAB.ER PO SCH (08:11)
[2022-11-13 08:14] LABS: Anisocytosis Moderate; Basophils % (A) 0 %; Eosinophils % (A) 0 %; HCT 24.3 % (39.0-53.0); HGB 8.1 gm/dL (13.0-17.5); Hypochromasia Slight; Lymphocytes # (A) 0.8 k/uL (1.0-4.8); Lymphocytes % (A) 11 %; MCH 38.6 pg (25.0-35.0); MCHC 33.3 g/dL (31.0-37.0); MCV 115.9 fL (80.0-100.0); Macrocytosis Marked; Mean Platelet Volume 12.1; Monocytes # (A) 0.2 k/uL (0-1.0); Monocytes % (A) 2 %; Neutrophils # (A) 6.4 k/uL (1.3-7.7); Neutrophils % (A) 86 %; WBC 7.5 k/uL (3.8-10.6)
--- NOTE | 2022-11-13 08:16 | XR ---
EXAMINATION TYPE: XR chest 1V DATE OF EXAM: 11/13/2022 COMPARISON: 11/08/2022 HISTORY: Shortness of breath TECHNIQUE: Single frontal view of the chest is obtained. FINDINGS: Cardia mainly with right basilar infiltrate and small effusion. No pneumothorax. Arthropat hy of the shoulders and hypertrophic change of the spine. Mild coarsening of the interstitium. IMPRESSION: 1. Right lower lobe infiltrate and small effusion correlate for mild CHF. Underlying pneumonia not ex cluded. Findings stable.
[2022-11-13 08:27] LABS: African American GFR (CKD) 49 (>60 ml/min/1.73 sqM); Anion Gap 4 mmol/L; Blood Urea Nitrogen 35 mg/dL (9-20); Calcium 8.4 mg/dL (8.4-10.2); Carbon Dioxide 33 mmol/L (22-30); Chloride 96 mmol/L (98-107); Glucose 145 mg/dL (74-99); Non-African American GFR(CKD) 43 (>60 ml/min/1.73 sqM); Potassium 4.1 mmol/L (3.5-5.1); Sodium 133 mmol/L (137-145)
[2022-11-13 08:40] LABS: Platelet Count 47 k/uL (150-450)
[2022-11-13] MEDS: IPRATROPIUM-ALBUTEROL 3 ML NEB INHALATION SCH ×3 (09:14→20:35)
[2022-11-13] MEDS: BUDESONIDE 0.5 MG/2 ML NEBU INHALATION SCH ×2 (09:15→20:35)
[2022-11-13 11:43] LABS: Glucose,Whole Blood 180 mg/dL (70-110)
--- NOTE | 2022-11-13 12:19 | P.PN ---
Subjective Progress Note Date: 11/13/22 This is an 82-year-old the patient was hospitalized 2 days back because of shor tness of breath, orthopnea, paroxysmal nocturnal dyspnea and significant edema in the lower extremity bilaterally. The patient is morbidly obese with a BMI of 40.4. The patient has obstructive sleep apnea. The patient also has chronic kidney disease, stage III, diabetes mellitus type 2, chronic into fibrillation and signs of chronic right-sided heart failure. The patient is also [id number] smoking history. He was not diagnosed having COPD in the past. The maternal Lasix on outpatient basis. Since his admission, the patient denies having any major improvement. Continues to have shortness of breath cough and congestion and extensive edema and his scrotum, abdomen and lower oximetry is bilaterally. Based on that, Pulmicort consultation was requested. The patient is on long-term and coagulation with Eliquis. The patient has no chest pain. No syncope. He is producing urine output and the patient has been negative fluid balance over the past 24 hours. Nevertheless, the balance of the fluid has not been enough to improve any of his symptoms. His chest x-ray at time of admission was consistent with CHF with bilateral pleural effusions and cardiac megaly and bibasilar pulmonary infiltrates. There is evidence of diffuse interstitial pattern. Blood work from today shows a GFR of 36, BUN is 29 with a creatinine of 1.7 and a sodium level is at 132. The discomfort at 6.8 with a hemoglobin of 8 and a platelet count of 57. Glucose at 127. Echocardiogram showed LV systolic function, borderline normal, dilated RV, severe pulmonary hypertension and moderate to severe mitral regurgitation and moderate degree of tricuspid regurgitation. The estimated the right-sided pressure was 64 mmHg. On today's evaluation of 11/13/2022, the patient is feeling better. The patient is less short of breath compared to yesterday and the patient has diabetes at least 3 L and the neck fluid balance is -3 L over the past 24 hours. He reports improvement of the abdominal swelling in the lower extremity edema. The patient remains on Lasix drip at 5 mg an hour and the patient is also Zaroxolyn. Nephrology has been consulted. Renal function remains stable. He is also on examination bronchodilators and steroids as the patient was told to have a component of COPD exacerbation also. CHF and interstitial edema and the findings are essentially stable. The patient is going 7.4 with a hemoglobin of 8.1. BUN is at 35 with a creatinine of 1.5 and a sodium level is at 133. Over all responses has been positive. Awaiting nephrology consultation. Cardiology has also been involved in the case as the patient has right-sided heart failure, chronic A. fib and mitral regurgitation. Objective - Vital Signs Vital signs: Vital Signs Temp 97.8 F 11/13/22 08:00 Pulse 68 11/13/22 09:31 Resp 20 11/13/22 08:00 BP 117/69 11/13/22 08:00 Pulse Ox 99 11/13/22 08:00 FiO2 Intake & Output 11/12/22 11/13/22 11/13/22 18:59 06:59 18:59 Intake Total 20 107.917 180 Output Total 950 2275 Balance -930 -2167.083 180 Weight 113.8 kg Intake: IV 20 20 Invasive Line 1 20 20 Intake, IV Titration 87.917 Amount Furosemide 100 mg In 87.917 Sodium Chloride 0.9% 90 ml @ 5 MG/HR 5 mls/hr IV .Q20H [facility] Rx#:[id number] Oral 180 Output: Urine 950 2275 Other: Voiding Method Urinal Urinal - Exam Morbidly obese, calm and comfortable at 2 L of Oxymizer nasal cannula, the body mass index is 39.4 Head exam was generally normal. There was no scleral icterus or corneal arcus. Mucous membranes were moist. Neck was supple and without jugular venous distension, thyromegaly, or carotid bruits. Carotids were easily palpable bilaterally. There was no adenopathy. Lungs sounds are diminished bilaterally along with scattered Wheeze Heart sounds are distant, irregular, positive S1-S2 Abdomen is distended soft nontender and there is abdominal wall edema. No direct tenderness. No rebound tenderness. No guarding Extremities revealed +2-3 pitting edema and there is no cyanosis or clubbing Examination of the skin revealed no evidence of significant rashes, suspicious appearing nevi or other concerning lesions. Neurologically, the patient is awake and alert and the patient does not have any focal neurological deficit. Cranial nerves are essentially intact. - Labs CBC & Chem 7: 11/13/22 07:48 11/13/22 07:48 Labs: Abnormal Lab Results - Last 24 Hours (Table) 11/12/22 11/12/22 11/12/22 Range/Units 11:43 16:28 19:57 RBC (4.30-5.90) m/uL Hgb (13.0-17.5) gm/dL Hct (39.0-53.0) % MCV (80.0-100.0) fL MCH (25.0-35.0) pg RDW (11.5-15.5) % Plt Count (150-450) k/uL Lymphocytes # (1.0-4.8) k/uL Macrocytosis Sodium (137-145) mmol/L Chloride (98-107) mmol/L Carbon Dioxide (22-30) mmol/L BUN (9-20) mg/dL Creatinine (0.66-1.25) mg/dL Glucose (74-99) mg/dL POC Glucose (mg/dL) 127 H 217 H 246 H (70-110) mg/dL 11/13/22 11/13/22 11/13/22 Range/Units 05:54 07:48 07:48 RBC 2.10 L (4.30-5.90) m/uL Hgb 8.1 L (13.0-17.5) gm/dL Hct 24.3 L (39.0-53.0) % MCV 115.9 H (80.0-100.0) fL MCH 38.6 H (25.0-35.0) pg RDW 20.0 H (11.5-15.5) % Plt Count 47 L (150-450) k/uL Lymphocytes # 0.8 L (1.0-4.8) k/uL Macrocytosis Marked A Sodium 133 L (137-145) mmol/L Chloride 96 L (98-107) mmol/L Carbon Dioxide 33 H (22-30) mmol/L BUN 35 H (9-20) mg/dL Creatinine 1.51 H (0.66-1.25) mg/dL Glucose 145 H (74-99) mg/dL POC Glucose (mg/dL) 152 H (70-110) mg/dL Assessment and Plan Plan: Acute on chronic dyspnea with signs of right-sided heart failure/cor pulmonale with massive fluid overload. There may be also a component of valvular heart disease with moderate to severe mitral regurgitation as evidenced on the echo cardiogram. Patient has developed significant volume overload and the patient is responding well to diuresis and the patient is currently on [address] ip and Zaroxolyn 5 mg by mouth twice a day. Weight is down. The patient has lost approximately 5-6 pounds since yesterday. Renal function remains stable. Mitral regurgitation, moderately severe. Severe pulmonary hypertension with estimated PA pressure of 64 Chronic lower extremity edema with interval worsening of fluid balance of massive fluid overload Chronic stage III kidney disease Diabetes mellitus type 2 Obstructive sleep apnea maintained on CPAP therapy on outpatient basis Previous history of CVA without any residual deficits Colonic polyps Skin cancer Chronic hypoxic respiratory failure and the patient has been on O2 on outpatient basis Chronic into fibrillation maintained on anticoagulation with Eliquis COPD Mild dysplasia with secondary anemia and thrombocytopenia Plan Continue Lasix drip at 5 mg an hour in combination with Zaroxolyn 5 mg by mouth twice a day Fluid restriction Monitor input output Monitor renal function and electrolytes Awaiting nephrology consultation [employer] on the case Titrate oxygen flow to maintain saturation above 90% Allow the patient uses home CPAP unit
--- NOTE | 2022-11-13 13:17 | P.NPCON ---
History of Present Illness - Reason for Consult acute renal failure - History of Present Illness Patient is an 82-year-old male with history of type 2 diabetes, obstructive sleep apnea, chronic A. fib and nicotine abuse. He is admitted to the hospital with complaints of increased shortness of breath as well as lower extremity swelling. According to the patient has been progressively getting short of breath over the past few weeks to months. He has had a diagnosis of CHF previously. Chest x-ray shows evidence of CHF and patient has been started on diuretics. Patient was started on Lasix drip yesterday and he has had 4 L of urine output for 24 hours. Overall he is feeling better. Patient is not aware of week kidney function. Previous creatinine has been 1.2-1.3 mg/dL in June and August 2022. Serum creatinine this admission was 1.47 and increased to 1.7 yesterday. Today it is down to 1.5. Voiding well. Blood pressure has not been low although a couple of readings of 98-99 mmHg for systolic blood pressure is noted. Maintained on lisinopril and Lasix at home prior to admission. No history of use of NSAIDs. Review of Systems As per HPI Past Medical History Past Medical History: Cancer, Heart Failure, CVA/TIA, Diabetes Mellitus, Myocardial Infarction ([place]), Osteoarthritis (OA), Prostate Disorder, Sleep Apnea /CPAP/BIPAP Additional Past Medical History / Comment(s): 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 COLON POLYPS, SKIN CANCER,uses cpap, new home o2 Last Myocardial Infarction Date:: 1999 History of Any Multi-Drug Resistant Organisms: None Reported Past Surgical History: Back Surgery, Joint Replacement, Orthopedic Surgery, To nsillectomy Additional Past Surgical History / Comment(s): ORIF LEFT SHOULDER. TOTAL LEFT KNEE. BILATERAL CATARACTS/IMPLANTS. Past Anesthesia/Blood Transfusion Reactions: No Reported Reaction Additional Past Anesthesia/Blood Transfusion Reaction / Comment(s): no problems with prior with platelet infusion Date of Last Stent Placement:: 1999 Past Psychological History: No Psychological Hx Reported Smoking Status: Former smoker Past Alcohol Use History: Occasional Additional Past Alcohol Use History / Comment(s): SMOKED FOR 30 YRS, QUIT IN 1987, 2PPD. Past Drug Use History: None Reported - Past Family History Sister(s) Family Medical History: Cancer Additional Family Medical History / Comment(s): UTERINE CANCER. Brother(s) Family Medical History: Cancer Additional Family Medical History / Comment(s): PROSTATE CANCER. Medications and Allergies Home Medications Medication Instructions Recorded Confirmed Type Cyanocobalamin [Vitamin B-12] 500 mcg PO DAILY 12/11/17 11/08/22 History Latanoprost Ophth [Xalatan 0.005%] 1 drop BOTH EYES HS 12/11/17 11/08/22 History Multivit-Min/FA/Lycopen/Lutein 1 tab PO DAILY 07/12/20 11/08/22 History [Centrum Silver Men Tablet] Tamsulosin [Flomax] 0.4 mg PO HS 07/12/20 11/08/22 History Ferrous Sulfate [Iron (65 MG 325 mg PO DAILY 07/25/22 11/08/22 History Elemental)] Pioglitazone [Actos] 30 mg PO DAILY 07/25/22 11/08/22 History lisinopriL 2.5 mg PO DAILY 07/25/22 11/08/22 History Apixaban [Eliquis] 2.5 mg PO BID #60 tab 10/01/22 11/08/22 Rx Atorvastatin [Lipitor] 40 mg PO DAILY #90 tablet 10/01/22 11/08/22 Rx Albuterol Inhaler [Ventolin Hfa 2 puff INHALATION RT-Q6H PRN 11/08/22 11/08/22 History Inhaler] Dorzolamide/Timolol/Pf 1 drop BOTH EYES HS 11/08/22 11/08/22 History [Dorzolamide 2%-Timolol 0.5%] Furosemide [Lasix] 40 mg PO BID@0900,1600 11/08/22 11/08/22 History Allergies Allergy/AdvReac Type Severity Reaction Status Date / Time No Known Allergies Allergy Verified 11/08/22 17:53 Physical Exam Vitals: Vital Signs Temp Pulse Pulse Resp BP Pulse Ox 11/13/22 12:12 68 11/13/22 12:02 68 11/13/22 11:32 98 F 69 19 144/66 96 11/13/22 09:31 68 11/13/22 09:15 68 11/13/22 08:00 97.8 F 65 20 117/69 99 11/13/22 04:00 98.5 F 72 20 98/62 98 11/13/22 02:00 67 20 11/13/22 00:00 98.3 F 67 20 145/72 99 11/12/22 21:03 68 11/12/22 20:51 68 11/12/22 20:00 98.1 F 70 20 143/70 97 11/12/22 16:00 97.8 F 71 20 122/71 98 Intake and Output 11/12/22 11/13/22 11/13/22 22:59 06:59 14:59 Intake Total 10 97.917 900 Output Total 2275 600 Balance 10 -2177.083 300 Intake: IV 10 10 Invasive Line 1 10 10 Intake, IV Titration 87.917 Amount Furosemide 100 mg In 87.917 Sodium Chloride 0.9% 90 ml @ 5 MG/HR 5 mls/hr IV .Q20H [facility] Rx#:[id number] Oral 900 Output: Urine 2275 600 Other: Voiding Method Urinal Urinal Urinal Weight 113.8 kg Patient is awake, comfortable, no acute distress Examination of the heart S1 and S2 Examination of the lungs bilateral breath sounds are heard. Decreased breath sounds at the bases Abdomen is soft nontender Examination of lower extremities shows edema 3+ bilaterally [employer] exam grossly intact Results - Lab Results Most recent lab results Calcium 8.4 mg/dL (8.4-10.2) 11/13/22 07:48 Magnesium 1.9 mg/dL (1.6-2.3) 11/12/22 07:50 11/13/22 07:48 11/13/22 07:48 Assessment and Plan Assessment: 1. Acute kidney injury cardiorenal currently nonoliguric and improving with diuresis. UA is completely benign. Check ultrasound of the kidneys 2. Chronic kidney disease NKF stage III a secondary to nephrosclerosis with ba seline creatinine 1.2-1.3 mg/dL 3. Severe pulmonary hypertension with moderate to severe mitral regurgitation and chronic lower extremity edema 4. Acute on chronic CHF with preserved ejection fraction 5. Coronary artery disease with history of previous coronary stenting 6. Anemia rule out iron deficiency Plan: Continue Lasix drip for another 24 hours at 5 mg per hour Check ultrasound of the kidneys Continue with LEANNE inhibitor's Check iron profile for workup for anemia Thank you for the consultation. We will continue to follow the patient with you during his hospitalization
--- NOTE | 2022-11-13 15:37 | US ---
EXAMINATION TYPE: US kidneys/renal and bladder DATE OF EXAM: 11/13/2022 COMPARISON: NONE CLINICAL INDICATION: Male, 82 years old with history of brayan; brayan exam limitations due to patient in c hair and body habitus. EXAM MEASUREMENTS: Right Kidney: 9.0 x 5.4 x 4.4 cm Left Kidney: 10.6 x 5.3 x 3.5 cm Pleural effusion visualized on right side. Right Kidney: Cortical thinning limited due to bowel gas. Left Kidney: Cortical thinning limited due to bowel gas. Bladder: anechoic correlate with urinalysis. Bilateral Jets seen: no There is no evidence for hydronephrosis. No nephrolithiasis is seen. No masses are identified. The urinary bladder is anechoic. Bilateral ureteral jets are seen. IMPRESSION: Bilateral renal cortical thinning or renal. Small amount of debris in the posterior margin bladder no t excluded. Correlate with urinalysis.
[2022-11-13 16:33] LABS: Glucose,Whole Blood 242 mg/dL (70-110)
[2022-11-13 20:23] LABS: Glucose,Whole Blood 262 mg/dL (70-110)
[2022-11-13] MEDS: TAMSULOSIN 0.4 MG CAP.ER.24H PO SCH (20:46)
[2022-11-13] MEDS: LATANOPROST 0.005% OPHTH DROPS 2.5 ML BTL BOTH EYES SCH (20:47)
[2022-11-13] MEDS: DORZOLAMIDE-TIMOLOL 2.23%/0.68 10ML BTL BOTH EYES SCH (20:48)
[2022-11-14 05:29] LABS: Glucose,Whole Blood 175 mg/dL (70-110)
--- NOTE | 2022-11-14 05:29 | PN ---
PROGRESS NOTE DATE OF SERVICE: 11/13/2022 SUBJECTIVE: This is an 82-year-old gentleman who was admitted with CHF exacerbation also, possibly had bronchitis also. The patient also had renal failure. After Lasix drip, the patient is apparently diuresing. At this time, the patient is having some cough. Multiple consultants are following the patient closely. Ultrasound of the abdomen is noted. Creatinine is 1.51 at this time. Blood sugar is also being monitored. PAST MEDICAL HISTORY: Reviewed. REVIEW OF SYSTEMS: A 14-point review is negative except as mentioned earlier. CURRENT MEDICATIONS: Lasix drip, dose and rest of medications reviewed. OBJECTIVE: VITAL SIGNS: Pulse 72, blood pressure 120/50, respirations 20. HEENT: Conjunctivae normal. NECK: No jugular venous distention. CARDIOVASCULAR: S1, S2. RESPIRATIONS: Diminished at bases, few scattered rhonchi and crackles. Expiratory wheezing. ABDOMEN: Soft, obese. LEGS: Bilateral leg edema. NERVOUS SYSTEM: No focal deficits. LABORATORY DATA: Reviewed. ASSESSMENT: 1. CHF acute exacerbation with acute on chronic diastolic dysfunction. 2. right ventricle and cor pulmonale. 3. Chronic kidney disease, stage 3. 4. Possible COPD. 5. Mild pancytopenia. 6. Thrombocytopenia. 7. Hyponatremia. 8. History of CHF. 9. Diabetes mellitus type 2. 10.History of DJD. 11.Multiple medical issues. RECOMMENDATIONS: Recommended to continue current management, continue symptomatic treatment, continue with the bronchodilators. Continue short course of steroids, otherwise closely follow with Dr. Hamilton. Otherwise, guarded prognosis because of multiple complex medical issues and further recommendations. See orders for further details. Further recommendations to follow. Zaroxolyn and Lasix drip to be continued. MMODL / IJN: [id number] / SARA
[2022-11-14 05:44] LABS: Glucose,Whole Blood 166 mg/dL (70-110)
[2022-11-14] MEDS: FUROSEMIDE 100 MG in SODIUM CHLORIDE 0.9% 90 ML IV SCH ×2 (06:07→15:10)
[2022-11-14] MEDS: methylPREDNISolone SOD SUCCI 40 MG/ML 1 ML VIAL IV SCH ×2 (06:49→10:59)
[2022-11-14] MEDS: PANTOPRAZOLE 40 MG TABLET PO SCH (06:49)
[2022-11-14] MEDS: INSULIN ASPART (NovoLOG) 100 UNIT/ML VIAL SQ SCH ×4 (06:49→20:46)
[2022-11-14] MEDS: IPRATROPIUM-ALBUTEROL 3 ML NEB INHALATION SCH ×3 (07:08→19:42)
[2022-11-14] MEDS: BUDESONIDE 0.5 MG/2 ML NEBU INHALATION SCH ×2 (07:08→19:42)
--- NOTE | 2022-11-14 07:09 | CT ---
EXAMINATION TYPE: CT brain wo con DATE OF EXAM: 11/14/2022 COMPARISON: None INDICATION: Fall, hit head DLP: 1155.4 mGycm, Automated exposure control for dose reduction was used. CONTRAST: None CT of the brain is performed utilizing 3 mm thick sections through the posterior fossa and 3 mm thick sections through the remaining calvarium. Study is performed within 24 hours of arrival to the hosp [facility]. No abnormal hyperdensity is present to suggest an acute intracranial hemorrhage. No mass lesion is evident. No acute infarcts are evident. Ventricles and sulci are prominent for the patient age. Paranasal sinuses and mastoid air cells within the [id number] are clear. IMPRESSIONS: 1. No acute intracranial process. Follow-up MRI can be performed as clinically indicated. 2. Atrophy
[2022-11-14] MEDS: PIOGLITAZONE 30 MG TAB PO SCH (08:10)
[2022-11-14] MEDS: POTASSIUM CHLORIDE ER 20 MEQ TAB.ER PO SCH (08:10)
[2022-11-14] MEDS: FERROUS SULFATE 325 MG TAB PO SCH (08:10)
[2022-11-14] MEDS: CYANOCOBALAMIN 500 MCG TAB PO SCH (08:10)
[2022-11-14] MEDS: MULTIVITAMINS, THERA 1 EACH TAB PO SCH (08:10)
[2022-11-14] MEDS: APIXABAN 2.5 MG TABLET PO SCH ×2 (08:10→20:46)
[2022-11-14] MEDS: metOLazone 5 MG TAB PO SCH (08:10)
[2022-11-14] MEDS: ATORVASTATIN 40 MG TAB PO SCH (08:11)
[2022-11-14 09:05] LABS: African American GFR (CKD) 36 (>60 ml/min/1.73 sqM); Anion Gap 5 mmol/L; Blood Urea Nitrogen 45 mg/dL (9-20); Calcium 8.6 mg/dL (8.4-10.2); Carbon Dioxide 34 mmol/L (22-30); Chloride 95 mmol/L (98-107); Glucose 165 mg/dL (74-99); Non-African American GFR(CKD) 31 (>60 ml/min/1.73 sqM); Potassium 4.4 mmol/L (3.5-5.1); Sodium 134 mmol/L (137-145)
[2022-11-14 09:50] LABS: Anisocytosis Moderate; Basophils # (A) 0.1 k/uL (0-0.2); Basophils % (A) 1 %; Eosinophils % (A) 0 %; HGB 7.9 gm/dL (13.0-17.5); Hypochromasia Moderate; Lymphocytes # (A) 0.9 k/uL (1.0-4.8); Lymphocytes % (A) 8 %; MCH 38.6 pg (25.0-35.0); MCV 117.1 fL (80.0-100.0); Macrocytosis Marked; Monocytes # (A) 0.3 k/uL (0-1.0); Monocytes % (A) 3 %; Neutrophils # (A) 10.4 k/uL (1.3-7.7); Neutrophils % (A) 88 %; RBC 2.05 m/uL (4.30-5.90); RDW 20.3 % (11.5-15.5); WBC 11.8 k/uL (3.8-10.6)
[2022-11-14 10:20] LABS: Platelet Count 57 k/uL (150-450)
[2022-11-14] MEDS: predniSONE 20 MG TAB PO SCH (11:29)
[2022-11-14 11:47] LABS: Glucose,Whole Blood 258 mg/dL (70-110)
--- NOTE | 2022-11-14 11:49 | P.PN ---
Subjective Patient is seen in follow-up for acute kidney injury on chronic kidney disease. Renal function was from diuresis. Maintained on Lasix drip. Still quite edematous. Gets dyspneic with minimal exertion. Vital signs are stable. General: No acute distress. HEENT: Head exam is unremarkable. On nasal cannula. LUNGS: Wheezing present. HEART: Rate and Rhythm are regular. ABDOMEN: Nontender. EXTREMITITES: 2+ edema. Objective - Vital Signs Vital signs: Vital Signs Temp 97.9 F 11/14/22 08:00 Pulse 71 11/14/22 08:00 Resp 20 11/14/22 08:00 BP 126/66 11/14/22 08:00 Pulse Ox 98 11/14/22 08:00 FiO2 Intake & Output 11/13/22 11/14/22 11/14/22 18:59 06:59 18:59 Intake Total 1080 358 Output Total 9365 774 6418 Balance -778 -120 -1146 Intake: Oral 1080 358 Output: Urine 4254 783 5668 Other: Voiding Method Urinal Urinal Urinal # Voids 1 # Bowel Movements 1 - Labs CBC & Chem 7: 11/14/22 07:57 11/14/22 07:57 Labs: Abnormal Lab Results - Last 24 Hours (Table) 11/13/22 11/13/22 11/14/22 Range/Units 16:32 20:18 04:08 WBC (3.8-10.6) k/uL RBC (4.30-5.90) m/uL Hgb (13.0-17.5) gm/dL Hct (39.0-53.0) % MCV (80.0-100.0) fL MCH (25.0-35.0) pg RDW (11.5-15.5) % Plt Count (150-450) k/uL Neutrophils # (1.3-7.7) k/uL Lymphocytes # (1.0-4.8) k/uL Macrocytosis Sodium (137-145) mmol/L Chloride (98-107) mmol/L Carbon Dioxide (22-30) mmol/L BUN (9-20) mg/dL Creatinine (0.66-1.25) mg/dL Glucose (74-99) mg/dL POC Glucose (mg/dL) 242 H 262 H 175 H (70-110) mg/dL 11/14/22 11/14/22 11/14/22 Range/Units 05:43 07:57 07:57 WBC 11.8 H (3.8-10.6) k/uL RBC 2.05 L (4.30-5.90) m/uL Hgb 7.9 L (13.0-17.5) gm/dL Hct 24.0 L (39.0-53.0) % MCV 117.1 H (80.0-100.0) fL MCH 38.6 H (25.0-35.0) pg RDW 20.3 H (11.5-15.5) % Plt Count 57 L (150-450) k/uL Neutrophils # 10.4 H (1.3-7.7) k/uL Lymphocytes # 0.9 L (1.0-4.8) k/uL Macrocytosis Marked A Sodium 134 L (137-145) mmol/L Chloride 95 L (98-107) mmol/L Carbon Dioxide 34 H (22-30) mmol/L BUN 45 H (9-20) mg/dL Creatinine 1.94 H (0.66-1.25) mg/dL Glucose 165 H (74-99) mg/dL POC Glucose (mg/dL) 166 H (70-110) mg/dL Microbiology - Last 24 Hours (Table) 11/08/22 14:25 Blood Culture - Final Blood 11/08/22 14:25 Blood Culture - Final Blood Assessment and Plan Plan: Assessment: 1. Acute kidney injury secondary to ATN secondary to cardiorenal syndrome. UA benign. No hydronephrosis noted on kidney ultrasound. Renal function worsened diuresis. Creatinine 1.94 today. Nonoliguric. 2. Chronic kidney disease stage IIIA with baseline creatinine 1.2-1.4 secondary to nephrosclerosis. 3. Acute on chronic diastolic CHF with moderate to severe mitral regurgitation, moderate tricuspid regurgitation and severe pulmonary hypertension. 4. Volume overload. 5. Anemia. Rule out iron deficiency. 6. Coronary artery disease status post cardiac stenting. Plan: Low-salt diet. 1500 mL fluid restriction. Increase Lasix drip to 10 mL an hour. Maintain metolazone. Continue to monitor renal function and urine output. Repeat labs in the morning.
--- NOTE | 2022-11-14 13:07 | PN ---
PROGRESS NOTE DATE OF SERVICE: 11/14/2022 HISTORY OF PRESENT ILLNESS: This is an 82-year-old gentleman, who was admitted with CHF acute exacerbation, is on Lasix drip at this time. The patient on bronchodilators, multiple other medications also. The patient also had a CT of the brain. Multiple consultants including Nephrology, Cardiology, Pulmonary following closely. CT brain did not show any acute abnormality. PAST MEDICAL HISTORY: Reviewed. REVIEW OF SYSTEMS: A 14-point review is negative except as mentioned earlier. CURRENT MEDICATIONS: Reviewed include Lasix drip. Dose and rest of medications noted. PHYSICAL EXAMINATION: VITAL SIGNS: Pulse 71, blood pressure 110/66, respirations 20. CHEST: Conjunctivae normal. NECK: Jugular venous distention in the base of the neck. CARDIOVASCULAR: S1, S2. ABDOMEN: Soft, obese. LEGS: Bilateral leg edema. NERVOUS SYSTEM: Diffusely weak. LABORATORY DATA: Reviewed. Hemoglobin 7.9, creatinine is 1.94. ASSESSMENT: 1. Congestive heart failure acute exacerbation with acute on chronic diastolic dysfunction. 2. Dilated right ventricle and acute cor pulmonale. 3. Anemia. 4. Chronic kidney disease, stage 3. 5. Possible chronic obstructive pulmonary disease. 6. Mild pancytopenia. 7. Thrombocytopenia. 8. Hyponatremia. 9. History of congestive heart failure. 10.Diabetes mellitus, type 2. 11.History of degenerative joint disease. 12.Multiple medical issues. RECOMMENDATIONS: Recommend to continue current management. Continue symptomatic treatment. I recommend iron studies, ferritin, stool OB, and continue to monitor. Repeat labs in the morning. Further recommendations to follow. Closely follow with Nephrology and Cardiology. Prognosis guarded. MMODL / IJN: [id number] /
--- NOTE | 2022-11-14 15:54 | P.PN ---
Subjective Progress Note Date: 11/14/22 This is an 82-year-old the patient was hospitalized 2 days back because of shor tness of breath, orthopnea, paroxysmal nocturnal dyspnea and significant edema in the lower extremity bilaterally. The patient is morbidly obese with a BMI of 40.4. The patient has obstructive sleep apnea. The patient also has chronic kidney disease, stage III, diabetes mellitus type 2, chronic into fibrillation and signs of chronic right-sided heart failure. The patient is also [id number] smoking history. He was not diagnosed having COPD in the past. The maternal Lasix on outpatient basis. Since his admission, the patient denies having any major improvement. Continues to have shortness of breath cough and congestion and extensive edema and his scrotum, abdomen and lower oximetry is bilaterally. Based on that, Pulmicort consultation was requested. The patient is on long-term and coagulation with Eliquis. The patient has no chest pain. No syncope. He is producing urine output and the patient has been negative fluid balance over the past 24 hours. Nevertheless, the balance of the fluid has not been enough to improve any of his symptoms. His chest x-ray at time of admission was consistent with CHF with bilateral pleural effusions and cardiac megaly and bibasilar pulmonary infiltrates. There is evidence of diffuse interstitial pattern. Blood work from today shows a GFR of 36, BUN is 29 with a creatinine of 1.7 and a sodium level is at 132. The discomfort at 6.8 with a hemoglobin of 8 and a platelet count of 57. Glucose at 127. Echocardiogram showed LV systolic function, borderline normal, dilated RV, severe pulmonary hypertension and moderate to severe mitral regurgitation and moderate degree of tricuspid regurgitation. The estimated the right-sided pressure was 64 mmHg. On today's evaluation of 11/13/2022, the patient is feeling better. The patient is less short of breath compared to yesterday and the patient has diabetes at least 3 L and the neck fluid balance is -3 L over the past 24 hours. He reports improvement of the abdominal swelling in the lower extremity edema. The patient remains on Lasix drip at 5 mg an hour and the patient is also Zaroxolyn. Nephrology has been consulted. Renal function remains stable. He is also on examination bronchodilators and steroids as the patient was told to have a component of COPD exacerbation also. CHF and interstitial edema and the findings are essentially stable. The patient is going 7.4 with a hemoglobin of 8.1. BUN is at 35 with a creatinine of 1.5 and a sodium level is at 133. Over all responses has been positive. Awaiting nephrology consultation. Cardiology has also been involved in the case as the patient has right-sided heart failure, chronic A. fib and mitral regurgitation. On 11/14/2022, patient is doing well. The patient continues to diurese adequately. The patient remains on Lasix drip at 5 mg an hour and the patient is also Zaroxolyn 5 mg by mouth twice a day. Fluid balance is negative in the order of more than 3 L and the patient continues to lose weight. The patient is improved and he is less short of breath. The patient is currently on 2 L of O2 nasal cannula with a pulse ox of 99 200%. No chest pain. No shortness of breath. Lower extremity edema, abdominal wall edema and scrotal edema or improving. On today's blood work, the WBC count 11.9 with a hemoglobin of 7.5. BUN is 45 with a creatinine 0.9 and his sodium level is at 134. He remains on bronchodilators. Remains on IV steroids. The patient remained atrial fibrillation and he has chronic mitral regurgitation. Objective - Vital Signs Vital signs: Vital Signs Temp 97.9 F 11/14/22 08:00 Pulse 71 11/14/22 08:00 Resp 20 11/14/22 08:00 BP 126/66 11/14/22 08:00 Pulse Ox 98 11/14/22 08:00 FiO2 Intake & Output 11/13/22 11/14/22 11/14/22 18:59 06:59 18:59 Intake Total 1080 358 Output Total 8775 693 5613 Balance -320 -500 -1192 Intake: Oral 1080 358 Output: Urine 7482 423 5047 Other: Voiding Method Urinal Urinal Urinal # Voids 1 # Bowel Movements 1 - Exam Morbidly obese, calm and comfortable at 2 L of Oxymizer nasal cannula, the body mass index is 39.4 Head exam was generally normal. There was no scleral icterus or corneal arcus. Mucous membranes were moist. Neck was supple and without jugular venous distension, thyromegaly, or carotid bruits. Carotids were easily palpable bilaterally. There was no adenopathy. Lungs sounds are diminished bilaterally along with scattered Wheeze Heart sounds are distant, irregular, positive S1-S2 Abdomen is distended soft nontender and there is abdominal wall edema. No direct tenderness. No rebound tenderness. No guarding Extremities revealed +2-3 pitting edema and there is no cyanosis or clubbing Examination of the skin revealed no evidence of significant rashes, suspicious appearing nevi or other concerning lesions. Neurologically, the patient is awake and alert and the patient does not have any focal neurological deficit. Cranial nerves are essentially intact. - Labs CBC & Chem 7: 11/14/22 07:57 11/14/22 07:57 Labs: Abnormal Lab Results - Last 24 Hours (Table) 11/13/22 11/13/22 11/13/22 Range/Units 11:42 16:32 20:18 WBC (3.8-10.6) k/uL RBC (4.30-5.90) m/uL Hgb (13.0-17.5) gm/dL Hct (39.0-53.0) % MCV (80.0-100.0) fL MCH (25.0-35.0) pg RDW (11.5-15.5) % Plt Count (150-450) k/uL Neutrophils # (1.3-7.7) k/uL Lymphocytes # (1.0-4.8) k/uL Macrocytosis Sodium (137-145) mmol/L Chloride (98-107) mmol/L Carbon Dioxide (22-30) mmol/L BUN (9-20) mg/dL Creatinine (0.66-1.25) mg/dL Glucose (74-99) mg/dL POC Glucose (mg/dL) 180 H 242 H 262 H (70-110) mg/dL 11/14/22 11/14/22 11/14/22 Range/Units 04:08 05:43 07:57 WBC 11.8 H (3.8-10.6) k/uL RBC 2.05 L (4.30-5.90) m/uL Hgb 7.9 L (13.0-17.5) gm/dL Hct 24.0 L (39.0-53.0) % MCV 117.1 H (80.0-100.0) fL MCH 38.6 H (25.0-35.0) pg RDW 20.3 H (11.5-15.5) % Plt Count 57 L (150-450) k/uL Neutrophils # 10.4 H (1.3-7.7) k/uL Lymphocytes # 0.9 L (1.0-4.8) k/uL Macrocytosis Marked A Sodium (137-145) mmol/L Chloride (98-107) mmol/L Carbon Dioxide (22-30) mmol/L BUN (9-20) mg/dL Creatinine (0.66-1.25) mg/dL Glucose (74-99) mg/dL POC Glucose (mg/dL) 175 H 166 H (70-110) mg/dL 11/14/22 Range/Units 07:57 WBC (3.8-10.6) k/uL RBC (4.30-5.90) m/uL Hgb (13.0-17.5) gm/dL Hct (39.0-53.0) % MCV (80.0-100.0) fL MCH (25.0-35.0) pg RDW (11.5-15.5) % Plt Count (150-450) k/uL Neutrophils # (1.3-7.7) k/uL Lymphocytes # (1.0-4.8) k/uL Macrocytosis Sodium 134 L (137-145) mmol/L Chloride 95 L (98-107) mmol/L Carbon Dioxide 34 H (22-30) mmol/L BUN 45 H (9-20) mg/dL Creatinine 1.94 H (0.66-1.25) mg/dL Glucose 165 H (74-99) mg/dL POC Glucose (mg/dL) (70-110) mg/dL Microbiology - Last 24 Hours (Table) 11/08/22 14:25 Blood Culture - Final Blood 11/08/22 14:25 Blood Culture - Final Blood Assessment and Plan Plan: Acute on chronic dyspnea with signs of right-sided heart failure/cor pulmonale with massive fluid overload. There may be also a component of valvular heart disease with moderate to severe mitral regurgitation as evidenced on the echo cardiogram. Patient has developed significant volume overload and the patient is responding well to diuresis and the patient is currently on 5 mg of Lasix drip and Zaroxolyn 5 mg by mouth twice a day. Weight is down. The patient continues to diurese and the patient is feeling much better, wanted status improved and the patient's respiratory status is also improved. Mitral regurgitation, moderately severe. Severe pulmonary hypertension with estimated PA pressure of 64 Chronic lower extremity edema with interval worsening of fluid balance of massive fluid overload Chronic stage III kidney disease Diabetes mellitus type 2 Obstructive sleep apnea maintained on CPAP therapy on outpatient basis Previous history of CVA without any residual deficits Colonic polyps Skin cancer Chronic hypoxic respiratory failure and the patient has been on O2 on outpatient basis Chronic into fibrillation maintained on anticoagulation with Eliquis COPD Mild dysplasia with secondary anemia and thrombocytopenia Plan Discontinue the IV Solu-Medrol and put the patient on prednisone burst taper starting with 40 mg Clinically improving and the patient is diuresing adequately [employer] on the case Continue Lasix drip at 5 mg an hour in combination with Zaroxolyn 5 mg by mouth twice a day Fluid restriction Monitor renal function Monitor input output Monitor renal function and electrolytes Nephrology consultation is appreciated [employer] on the case Titrate oxygen flow to maintain saturation above 90% Allow the patient uses home CPAP unit
[2022-11-14 16:21] LABS: Glucose,Whole Blood 198 mg/dL (70-110)
[2022-11-14 19:52] LABS: Glucose,Whole Blood 203 mg/dL (70-110)
[2022-11-14] MEDS: TAMSULOSIN 0.4 MG CAP.ER.24H PO SCH (20:47)
[2022-11-14] MEDS: LATANOPROST 0.005% OPHTH DROPS 2.5 ML BTL BOTH EYES SCH (20:47)
[2022-11-14] MEDS: DORZOLAMIDE-TIMOLOL 2.23%/0.68 10ML BTL BOTH EYES SCH (20:47)
[2022-11-15] MEDS: FUROSEMIDE 100 MG in SODIUM CHLORIDE 0.9% 90 ML IV SCH ×3 (03:01→21:49)
[2022-11-15 06:06] LABS: Glucose,Whole Blood 160 mg/dL (70-110)
[2022-11-15] MEDS: PANTOPRAZOLE 40 MG TABLET PO SCH (06:32)
[2022-11-15] MEDS: INSULIN ASPART (NovoLOG) 100 UNIT/ML VIAL SQ SCH ×4 (06:33→21:27)
[2022-11-15] MEDS: metOLazone 5 MG TAB PO SCH (09:08)
[2022-11-15] MEDS: ATORVASTATIN 40 MG TAB PO SCH (09:08)
[2022-11-15] MEDS: FERROUS SULFATE 325 MG TAB PO SCH (09:08)
[2022-11-15] MEDS: PIOGLITAZONE 30 MG TAB PO SCH (09:08)
[2022-11-15] MEDS: CYANOCOBALAMIN 500 MCG TAB PO SCH (09:09)
[2022-11-15] MEDS: MULTIVITAMINS, THERA 1 EACH TAB PO SCH (09:09)
[2022-11-15] MEDS: POTASSIUM CHLORIDE ER 20 MEQ TAB.ER PO SCH (09:09)
[2022-11-15] MEDS: predniSONE 20 MG TAB PO SCH (09:09)
[2022-11-15] MEDS: APIXABAN 2.5 MG TABLET PO SCH ×2 (09:09→21:26)
[2022-11-15] MEDS: BUDESONIDE 0.5 MG/2 ML NEBU INHALATION SCH ×2 (09:14→21:55)
[2022-11-15] MEDS: IPRATROPIUM-ALBUTEROL 3 ML NEB INHALATION SCH ×3 (09:14→21:55)
[2022-11-15 09:19] LABS: Anisocytosis Moderate; Basophils % (A) 0 %; Eosinophils % (A) 0 %; HCT 23.7 % (39.0-53.0); HGB 7.8 gm/dL (13.0-17.5); Lymphocytes # (A) 1.2 k/uL (1.0-4.8); Lymphocytes % (A) 11 %; MCH 37.6 pg (25.0-35.0); MCHC 32.8 g/dL (31.0-37.0); MCV 114.8 fL (80.0-100.0); Macrocytosis Marked; Mean Platelet Volume 13.3; Monocytes # (A) 0.5 k/uL (0-1.0); Monocytes % (A) 5 %; Neutrophils # (A) 8.8 k/uL (1.3-7.7); Neutrophils % (A) 82 %; RBC 2.06 m/uL (4.30-5.90); RDW 20.6 % (11.5-15.5); WBC 10.7 k/uL (3.8-10.6)
[2022-11-15 10:12] LABS: ALT 32 U/L (4-49); AST 53 U/L (17-59); African American GFR (CKD) 43 (>60 ml/min/1.73 sqM); Albumin 3.1 g/dL (3.5-5.0); Alkaline Phosphatase 57 U/L (38-126); Blood Urea Nitrogen 53 mg/dL (9-20); Calcium 8.9 mg/dL (8.4-10.2); Chloride 91 mmol/L (98-107); Glucose 158 mg/dL (74-99); Magnesium 1.9 mg/dL (1.6-2.3); Non-African American GFR(CKD) 37 (>60 ml/min/1.73 sqM); Potassium 4.1 mmol/L (3.5-5.1); Sodium 135 mmol/L (137-145); Total Bilirubin 1.5 mg/dL (0.2-1.3)
[2022-11-15 10:18] LABS: Anion Gap 9 mmol/L
[2022-11-15 10:25] LABS: Platelet Count 55 k/uL (150-450)
[2022-11-15 10:33] LABS: Carbon Dioxide 35 mmol/L (22-30)
--- NOTE | 2022-11-15 10:33 | P.PN ---
Subjective Patient is seen in follow-up for acute kidney injury on chronic kidney disease. Renal function was from diuresis. Morning labs pending. Lasix drip dose increased yesterday. Maintained on Lasix drip. Urine output over 5 L in the last 24 hours. Edema improving. Weight trending down. Dyspnea about the same. Vital signs are stable. General: No acute distress. HEENT: Head exam is unremarkable. On nasal cannula. LUNGS: Wheezing present. HEART: Rate and Rhythm are regular. ABDOMEN: Nontender. EXTREMITITES: 2+ edema. Objective - Vital Signs Vital signs: Vital Signs Temp 97.5 F L 11/15/22 08:07 Pulse 72 11/15/22 09:31 Resp 20 11/15/22 08:07 BP 109/57 11/15/22 08:07 Pulse Ox 100 11/15/22 08:07 FiO2 Intake & Output 11/14/22 11/15/22 11/15/22 18:59 06:59 18:59 Intake Total 458 1510 118 Output Total 2800 2600 1200 Balance -2342 -1090 -1082 Weight 110 kg Intake: Intake, IV Titration 100 100 Amount Furosemide 100 mg In 100 100 Sodium Chloride 0.9% 90 ml @ 10 MG/HR 10 mls/hr IV .Q10H [facility] Rx#: [id number] Oral 358 1410 118 Output: Urine 2800 2600 1200 Other: Voiding Method Urinal Urinal # Voids 1 # Bowel Movements 1 1 - Labs CBC & Chem 7: 11/15/22 08:34 11/14/22 07:57 Labs: Abnormal Lab Results - Last 24 Hours (Table) 11/14/22 11/14/22 11/14/22 Range/Units 11:45 16:19 19:51 WBC (3.8-10.6) k/uL RBC (4.30-5.90) m/uL Hgb (13.0-17.5) gm/dL Hct (39.0-53.0) % MCV (80.0-100.0) fL MCH (25.0-35.0) pg RDW (11.5-15.5) % Plt Count (150-450) k/uL Neutrophils # (1.3-7.7) k/uL Macrocytosis POC Glucose (mg/dL) 258 H 198 H 203 H (70-110) mg/dL 11/15/22 11/15/22 Range/Units 06:05 08:34 WBC 10.7 H (3.8-10.6) k/uL RBC 2.06 L (4.30-5.90) m/uL Hgb 7.8 L (13.0-17.5) gm/dL Hct 23.7 L (39.0-53.0) % MCV 114.8 H (80.0-100.0) fL MCH 37.6 H (25.0-35.0) pg RDW 20.6 H (11.5-15.5) % Plt Count 55 L (150-450) k/uL Neutrophils # 8.8 H (1.3-7.7) k/uL Macrocytosis Marked A POC Glucose (mg/dL) 160 H (70-110) mg/dL Assessment and Plan Plan: Assessment: 1. Acute kidney injury secondary to ATN secondary to cardiorenal syndrome. UA benign. No hydronephrosis noted on kidney ultrasound. Renal function worsened diuresis. Creatinine 1.94 yesterday. Nonoliguric. 2. Chronic kidney disease stage IIIA with baseline creatinine 1.2-1.4 secondary to nephrosclerosis. 3. Acute on chronic diastolic CHF with moderate to severe mitral regurgitation, moderate tricuspid regurgitation and severe pulmonary hypertension. 4. Volume overload. Improving with diuresis. 5. Anemia. Rule out iron deficiency. 6. Coronary artery disease status post cardiac stenting. Plan: Low-salt diet. 1500 mL fluid restriction. Maintain Lasix drip. Maintain metolazone. Follow-up iron studies. Continue to monitor renal function and urine output. Morning labs pending.
[2022-11-15 11:46] LABS: Glucose,Whole Blood 163 mg/dL (70-110)
[2022-11-15 12:36] LABS: % Iron Saturation 24.83 (15.00-50.00)
--- NOTE | 2022-11-15 15:39 | P.PN ---
Subjective Progress Note Date: 11/15/22 This is an 82-year-old the patient was hospitalized 2 days back because of shor tness of breath, orthopnea, paroxysmal nocturnal dyspnea and significant edema in the lower extremity bilaterally. The patient is morbidly obese with a BMI of 40.4. The patient has obstructive sleep apnea. The patient also has chronic kidney disease, stage III, diabetes mellitus type 2, chronic into fibrillation and signs of chronic right-sided heart failure. The patient is also [id number] smoking history. He was not diagnosed having COPD in the past. The maternal Lasix on outpatient basis. Since his admission, the patient denies having any major improvement. Continues to have shortness of breath cough and congestion and extensive edema and his scrotum, abdomen and lower oximetry is bilaterally. Based on that, Pulmicort consultation was requested. The patient is on long-term and coagulation with Eliquis. The patient has no chest pain. No syncope. He is producing urine output and the patient has been negative fluid balance over the past 24 hours. Nevertheless, the balance of the fluid has not been enough to improve any of his symptoms. His chest x-ray at time of admission was consistent with CHF with bilateral pleural effusions and cardiac megaly and bibasilar pulmonary infiltrates. There is evidence of diffuse interstitial pattern. Blood work from today shows a GFR of 36, BUN is 29 with a creatinine of 1.7 and a sodium level is at 132. The discomfort at 6.8 with a hemoglobin of 8 and a platelet count of 57. Glucose at 127. Echocardiogram showed LV systolic function, borderline normal, dilated RV, severe pulmonary hypertension and moderate to severe mitral regurgitation and moderate degree of tricuspid regurgitation. The estimated the right-sided pressure was 64 mmHg. On today's evaluation of 11/13/2022, the patient is feeling better. The patient is less short of breath compared to yesterday and the patient has diabetes at least 3 L and the neck fluid balance is -3 L over the past 24 hours. He reports improvement of the abdominal swelling in the lower extremity edema. The patient remains on Lasix drip at 5 mg an hour and the patient is also Zaroxolyn. Nephrology has been consulted. Renal function remains stable. He is also on examination bronchodilators and steroids as the patient was told to have a component of COPD exacerbation also. CHF and interstitial edema and the findings are essentially stable. The patient is going 7.4 with a hemoglobin of 8.1. BUN is at 35 with a creatinine of 1.5 and a sodium level is at 133. Over all responses has been positive. Awaiting nephrology consultation. Cardiology has also been involved in the case as the patient has right-sided heart failure, chronic A. fib and mitral regurgitation. On 11/14/2022, patient is doing well. The patient continues to diurese adequately. The patient remains on Lasix drip at 5 mg an hour and the patient is also Zaroxolyn 5 mg by mouth twice a day. Fluid balance is negative in the order of more than 3 L and the patient continues to lose weight. The patient is improved and he is less short of breath. The patient is currently on 2 L of O2 nasal cannula with a pulse ox of 99 200%. No chest pain. No shortness of breath. Lower extremity edema, abdominal wall edema and scrotal edema or improving. On today's blood work, the WBC count 11.9 with a hemoglobin of 7.5. BUN is 45 with a creatinine 0.9 and his sodium level is at 134. He remains on bronchodilators. Remains on IV steroids. The patient remained atrial fibrillation and he has chronic mitral regurgitation. 11/13/2022, the patient remains on Lasix drip and is currently on 10 mg an hour. Doing well. No respiratory difficulties. Is also on Zaroxolyn 5 mg by mouth on a daily basis. The BUN is at 53 with a creatinine of 1.6 which is improved compared to yesterday. Sodium level is at 135. The echoes at 7.7 with a hemoglobin of 7.8 and a platelet count of 55. Noted the patient has chronic normocytic. The platelet count remains unchanged. The overall fluid balance has been negative and the patient weight is currently down to 110 kg and he is in negative fluid balance of at least 3.4 L over the past 24 hours. Objective - Vital Signs Vital signs: Vital Signs Temp 97.5 F L 11/15/22 08:07 Pulse 72 11/15/22 09:31 Resp 20 11/15/22 08:07 BP 109/57 11/15/22 08:07 Pulse Ox 100 11/15/22 08:07 FiO2 Intake & Output 11/14/22 11/15/22 11/15/22 18:59 06:59 18:59 Intake Total 458 1510 118 Output Total 2800 2600 1200 Balance -2342 -1090 -1082 Weight 110 kg Intake: Intake, IV Titration 100 100 Amount Furosemide 100 mg In 100 100 Sodium Chloride 0.9% 90 ml @ 10 MG/HR 10 mls/hr IV .Q10H [facility] Rx#: [id number] Oral 358 1410 118 Output: Urine 2800 2600 1200 Other: Voiding Method Urinal Urinal # Voids 1 # Bowel Movements 1 1 - Exam Morbidly obese, calm and comfortable at 2 L of Oxymizer nasal cannula, the body mass index is 39.4 Head exam was generally normal. There was no scleral icterus or corneal arcus. Mucous membranes were moist. Neck was supple and without jugular venous distension, thyromegaly, or carotid bruits. Carotids were easily palpable bilaterally. There was no adenopathy. Lungs sounds are diminished bilaterally along with scattered Wheeze Heart sounds are distant, irregular, positive S1-S2 Abdomen is distended soft nontender and there is abdominal wall edema. No direct tenderness. No rebound tenderness. No guarding Extremities revealed +2-3 pitting edema and there is no cyanosis or clubbing Examination of the skin revealed no evidence of significant rashes, suspicious appearing nevi or other concerning lesions. Neurologically, the patient is awake and alert and the patient does not have any focal neurological deficit. Cranial nerves are essentially intact. - Labs CBC & Chem 7: 11/15/22 08:34 11/15/22 08:34 Labs: Abnormal Lab Results - Last 24 Hours (Table) 11/14/22 11/14/22 11/14/22 Range/Units 11:45 16:19 19:51 WBC (3.8-10.6) k/uL RBC (4.30-5.90) m/uL Hgb (13.0-17.5) gm/dL Hct (39.0-53.0) % MCV (80.0-100.0) fL MCH (25.0-35.0) pg RDW (11.5-15.5) % Plt Count (150-450) k/uL Neutrophils # (1.3-7.7) k/uL Macrocytosis Sodium (137-145) mmol/L Chloride (98-107) mmol/L Carbon Dioxide (22-30) mmol/L BUN (9-20) mg/dL Creatinine (0.66-1.25) mg/dL Glucose (74-99) mg/dL POC Glucose (mg/dL) 258 H 198 H 203 H (70-110) mg/dL Total Bilirubin (0.2-1.3) mg/dL Albumin (3.5-5.0) g/dL 11/15/22 11/15/22 11/15/22 Range/Units 06:05 08:34 08:34 WBC 10.7 H (3.8-10.6) k/uL RBC 2.06 L (4.30-5.90) m/uL Hgb 7.8 L (13.0-17.5) gm/dL Hct 23.7 L (39.0-53.0) % MCV 114.8 H (80.0-100.0) fL MCH 37.6 H (25.0-35.0) pg RDW 20.6 H (11.5-15.5) % Plt Count 55 L (150-450) k/uL Neutrophils # 8.8 H (1.3-7.7) k/uL Macrocytosis Marked A Sodium 135 L (137-145) mmol/L Chloride 91 L (98-107) mmol/L Carbon Dioxide 35 H (22-30) mmol/L BUN 53 H (9-20) mg/dL Creatinine 1.68 H (0.66-1.25) mg/dL Glucose 158 H (74-99) mg/dL POC Glucose (mg/dL) 160 H (70-110) mg/dL Total Bilirubin 1.5 H (0.2-1.3) mg/dL Albumin 3.1 L (3.5-5.0) g/dL Assessment and Plan Plan: Acute on chronic dyspnea with signs of right-sided heart failure/cor pulmonale with massive fluid overload. There may be also a component of valvular heart disease with moderate to severe mitral regurgitation as evidenced on the echo cardiogram. Patient has developed significant volume overload and the patient is responding well to diuresis and the patient is currently on 5 mg of Lasix drip and Zaroxolyn 5 mg by once a day. Weight is down. The patient continues to diurese and the patient is feeling much better, wanted status improved and the patient's respiratory status is also improved. The patient's body weight is currently down to 110 kg. No significant shortness of breath and his breathing is improved significantly. Mitral regurgitation, moderately severe. Severe pulmonary hypertension with estimated PA pressure of 64 Chronic lower extremity edema with interval worsening of fluid balance of massive fluid overload Chronic stage III kidney disease Diabetes mellitus type 2 Obstructive sleep apnea maintained on CPAP therapy on outpatient basis Previous history of CVA without any residual deficits Colonic polyps Skin cancer Chronic hypoxic respiratory failure and the patient has been on O2 on outpatient basis Chronic into fibrillation maintained on anticoagulation with Eliquis COPD Mild dysplasia with secondary anemia and thrombocytopenia Plan Continue prednisone burst taper starting with 40 mg Clinically improving and the patient is diuresing adequately [employer] on the case Continue Lasix drip at 10 mg an hour in combination with Zaroxolyn 5 mg by mouth once a day Fluid restriction Monitor renal function Monitor input output Monitor renal function and electrolytes Nephrology consultation is appreciated [employer] Machine [employer] on the case Titrate oxygen flow to maintain saturation above 90% Allow the patient uses home CPAP unit
[2022-11-15 16:57] LABS: Glucose,Whole Blood 206 mg/dL (70-110)
[2022-11-15 20:43] LABS: Glucose,Whole Blood 237 mg/dL (70-110)
[2022-11-15] MEDS: TAMSULOSIN 0.4 MG CAP.ER.24H PO SCH (21:26)
[2022-11-15] MEDS: LATANOPROST 0.005% OPHTH DROPS 2.5 ML BTL BOTH EYES SCH (21:26)
[2022-11-15] MEDS: DORZOLAMIDE-TIMOLOL 2.23%/0.68 10ML BTL BOTH EYES SCH (21:27)
--- NOTE | 2022-11-15 22:49 | PN ---
PROGRESS NOTE DATE OF SERVICE: 11/15/2022 SUBJECTIVE: This is an 82-year-old gentleman admitted with CHF acute exacerbation, is not responding to IV Lasix. The patient apparently responding to Lasix drip at this time. Nephrology is following the patient closely. The CT brain did not show any acute abnormality except some atrophy. Otherwise, multiple consultants are following the patient closely. Creatinine is 1.68 at this time. BUN is 53. PAST MEDICAL HISTORY: Reviewed. REVIEW OF SYSTEMS: A 14-point review is negative except as mentioned earlier. CURRENT MEDICATIONS: Reviewed include Lasix drip. Dose and rest of medications noted. PHYSICAL EXAMINATION: VITAL SIGNS: Pulse 77, blood pressure 140/65, respirations 20. HEENT: Conjunctivae normal. NECK: No JVD. CARDIOVASCULAR: S1 and S2. RESPIRATIONS: A few scattered rhonchi. ABDOMEN: Soft, obese. LEGS: Bilateral leg edema, improving. LABORATORY DATA: Reviewed. ASSESSMENT: 1. Congestive heart failure acute exacerbation with acute on chronic diastolic dysfunction, on IV Lasix drip. 2. Dilated right ventricle and chronic cor pulmonale. 3. Anemia. 4. Chronic kidney disease, stage 3. 5. Possible chronic obstructive pulmonary disease. 6. Mild pancytopenia. 7. Thrombocytopenia. 8. Hyponatremia. 9. History of congestive heart failure. 10.Diabetes mellitus, type 2. 11.History of degenerative joint disease. 12.Multiple medical issues. RECOMMENDATIONS: Recommend to continue current management. Continue the diuretics. Continue the bronchodilators. Continue steroids. Continue to follow up with Cardiology and Pulmonology. Prognosis guarded. Further recommendations to follow. See orders for further details. MMODL / IJN: [id number] /
[2022-11-16 06:14] LABS: Glucose,Whole Blood 147 mg/dL (70-110)
[2022-11-16] MEDS: INSULIN ASPART (NovoLOG) 100 UNIT/ML VIAL SQ SCH ×4 (06:34→20:58)
[2022-11-16] MEDS: PANTOPRAZOLE 40 MG TABLET PO SCH (06:35)
[2022-11-16] MEDS: FUROSEMIDE 100 MG in SODIUM CHLORIDE 0.9% 90 ML IV SCH ×3 (06:35→23:51)
[2022-11-16 08:23] LABS: African American GFR (CKD) 35 (>60 ml/min/1.73 sqM); Blood Urea Nitrogen 65 mg/dL (9-20); Calcium 9.5 mg/dL (8.4-10.2); Chloride 88 mmol/L (98-107); Glucose 124 mg/dL (74-99); Magnesium 1.9 mg/dL (1.6-2.3); Non-African American GFR(CKD) 30 (>60 ml/min/1.73 sqM); Sodium 134 mmol/L (137-145)
[2022-11-16 08:30] LABS: Anion Gap 7 mmol/L; Carbon Dioxide 39 mmol/L (22-30)
[2022-11-16 08:44] LABS: Potassium 4.1 mmol/L (3.5-5.1)
[2022-11-16] MEDS: IPRATROPIUM-ALBUTEROL 3 ML NEB INHALATION SCH ×3 (09:07→21:07)
[2022-11-16] MEDS: BUDESONIDE 0.5 MG/2 ML NEBU INHALATION SCH ×2 (09:07→21:07)
[2022-11-16] MEDS: POTASSIUM CHLORIDE ER 20 MEQ TAB.ER PO SCH (09:15)
[2022-11-16] MEDS: FERROUS SULFATE 325 MG TAB PO SCH (09:15)
[2022-11-16] MEDS: CYANOCOBALAMIN 500 MCG TAB PO SCH (09:15)
[2022-11-16] MEDS: MULTIVITAMINS, THERA 1 EACH TAB PO SCH (09:15)
[2022-11-16] MEDS: metOLazone 5 MG TAB PO SCH (09:15)
[2022-11-16] MEDS: PIOGLITAZONE 30 MG TAB PO SCH (09:15)
[2022-11-16] MEDS: ATORVASTATIN 40 MG TAB PO SCH (09:16)
[2022-11-16] MEDS: APIXABAN 2.5 MG TABLET PO SCH ×2 (09:16→20:57)
[2022-11-16] MEDS: predniSONE 20 MG TAB PO SCH (09:16)
--- NOTE | 2022-11-16 10:57 | P.PN ---
Subjective Patient is seen in follow-up for acute kidney injury on chronic kidney disease. Renal function worse today. Nonoliguric. Maintained on Lasix drip. Urine output over 5 L in the last 24 hours. Edema improving. Weight trending down. Hemodynamically stable. present at bedside. Vital signs are stable. General: No acute distress. HEENT: Head exam is unremarkable. On nasal cannula. LUNGS: Wheezing present. HEART: Rate and Rhythm are regular. ABDOMEN: Nontender. EXTREMITITES: 2+ edema. Objective - Vital Signs Vital signs: Vital Signs Temp 97.7 F 11/16/22 08:05 Pulse 76 11/16/22 09:22 Resp 18 11/16/22 08:05 BP 123/59 11/16/22 08:05 Pulse Ox 98 11/16/22 09:07 FiO2 Intake & Output 11/15/22 11/16/22 11/16/22 18:59 06:59 18:59 Intake Total 456.833 956.834 360 Output Total 1625 3710 500 Balance -1168.167 -2753.166 -140 Weight 104.7 kg Intake: Intake, IV Titration 98.833 176.834 Amount Furosemide 100 mg In 98.833 176.834 Sodium Chloride 0.9% 90 ml @ 10 MG/HR 10 mls/hr IV .Q10H [facility] Rx#: [id number] Oral 358 780 360 Output: Urine 1625 3710 500 Other: Voiding Method Urinal Urinal - Labs CBC & Chem 7: 11/15/22 08:34 11/16/22 07:31 Labs: Abnormal Lab Results - Last 24 Hours (Table) 11/15/22 11/15/22 11/15/22 Range/Units 11:44 16:54 20:41 Sodium (137-145) mmol/L Chloride (98-107) mmol/L Carbon Dioxide (22-30) mmol/L BUN (9-20) mg/dL Creatinine (0.66-1.25) mg/dL Glucose (74-99) mg/dL POC Glucose (mg/dL) 163 H 206 H 237 H (70-110) mg/dL 11/16/22 11/16/22 Range/Units 06:13 07:31 Sodium 134 L (137-145) mmol/L Chloride 88 L (98-107) mmol/L Carbon Dioxide 39 H (22-30) mmol/L BUN 65 H (9-20) mg/dL Creatinine 2.01 H (0.66-1.25) mg/dL Glucose 124 H (74-99) mg/dL POC Glucose (mg/dL) 147 H (70-110) mg/dL Assessment and Plan Plan: Assessment: 1. Acute kidney injury secondary to ATN secondary to cardiorenal syndrome. UA benign. No hydronephrosis noted on kidney ultrasound. Renal function worsened from diuresis. Creatinine 2.01 today. Nonoliguric. 2. Chronic kidney disease stage IIIA with baseline creatinine 1.2-1.4 secondary to nephrosclerosis. 3. Acute on chronic diastolic CHF with moderate to severe mitral regurgitation, moderate tricuspid regurgitation and severe pulmonary hypertension. 4. Volume overload. Improving with diuresis. 5. Anemia. Iron replete. 6. Coronary artery disease status post cardiac stenting. Plan: Low-salt diet. 1500 mL fluid restriction. Maintain Lasix drip for another day. Maintain metolazone. Add Aranesp. Continue to monitor renal function and urine output. Discussed monitoring fluid intake and keeping it less than 50 ounces per day upon discharge as well as following a low-salt diet. He was also advised to monitor his weight closely at home and to notify physician if develops worsening edema or gains more than 3 pounds in 1 week duration.
[2022-11-16 11:35] LABS: Glucose,Whole Blood 147 mg/dL (70-110)
--- NOTE | 2022-11-16 11:54 | P.PN ---
Subjective This is a pleasant 82 years old male with multiple medical problems including history of heart failure presents with worsening dyspnea and leg swelling on and he was found with fluid overload secondary to diastolic CHF, echocardiogram from 09/2022 showing ejection fraction 55%. Currently inspector motor vehicles signed off the case and patient being monitored closely by nephrology team. He remains on Lasix drip 10 mg/h, creatinine 1.4, 1.6 and 2.1. Discuss case with nephrology team who recommended to keep the Lasix drip for now. Pulmonary team on the case for mild COPD exacerbation and currently on a prednisone 40 mg. Hemoglobin 7.8. Objective - Vital Signs Vital signs: Vital Signs Temp 97.7 F 11/16/22 11:35 Pulse 74 11/16/22 11:35 Resp 18 11/16/22 11:35 BP 126/48 11/16/22 11:35 Pulse Ox 98 11/16/22 09:07 FiO2 Intake & Output 11/15/22 11/16/22 11/16/22 18:59 06:59 18:59 Intake Total 456.833 956.834 360 Output Total 1625 3710 975 Balance -1168.167 -2753.166 -615 Weight 104.7 kg Intake: Intake, IV Titration 98.833 176.834 Amount Furosemide 100 mg In 98.833 176.834 Sodium Chloride 0.9% 90 ml @ 10 MG/HR 10 mls/hr IV .Q10H [facility] Rx#: [id number] Oral 358 780 360 Output: Urine 1625 3710 975 Other: Voiding Method Urinal Urinal Urinal - Exam GENERAL: The patient is alert and oriented x3, not in any acute distress. Well developed, well nourished. HEENT: Pupils are round and equally reacting to light. EOMI. No scleral icterus. No conjunctival pallor. Normocephalic, atraumatic. No pharyngeal erythema. No thyromegaly. CARDIOVASCULAR: S1 and S2 present. No murmurs, rubs, or gallops. -PULMONARY: Chest is clear to auscultation, no wheezing , bilateral basal crackles. ABDOMEN: Soft, nontender, nondistended, normoactive bowel sounds. No palpable organomegaly. MUSCULOSKELETAL: No joint swelling or deformity. -EXTREMITIES: No cyanosis, clubbing, patient has bilateral pitting like edema. NEUROLOGICAL: Gross neurological examination did not reveal any focal deficits. SKIN: No rashes. no petechiae. - Labs CBC & Chem 7: 11/15/22 08:34 11/16/22 07:31 Labs: Abnormal Lab Results - Last 24 Hours (Table) 11/15/22 11/15/22 11/16/22 Range/Units 16:54 20:41 06:13 Sodium (137-145) mmol/L Chloride (98-107) mmol/L Carbon Dioxide (22-30) mmol/L BUN (9-20) mg/dL Creatinine (0.66-1.25) mg/dL Glucose (74-99) mg/dL POC Glucose (mg/dL) 206 H 237 H 147 H (70-110) mg/dL 11/16/22 11/16/22 Range/Units 07:31 11:32 Sodium 134 L (137-145) mmol/L Chloride 88 L (98-107) mmol/L Carbon Dioxide 39 H (22-30) mmol/L BUN 65 H (9-20) mg/dL Creatinine 2.01 H (0.66-1.25) mg/dL Glucose 124 H (74-99) mg/dL POC Glucose (mg/dL) 147 H (70-110) mg/dL Assessment and Plan Assessment: Acute diastolic CHF Acute kidney injury on chronic kidney disease stage III moderate to severe mitral regurgitation Severe pulmonary hypertension Mild COPD exacerbation Plan: continue with Lasix drip Independent Freight Agent in of the case. Pulmonary team on the case and currently on a prednisone 40 mg Senior Product Consultant Signed off the case Labs and medication were reviewed.. Continue same treatment. Continue with symptomatic treatment. Resume home medication. Monitor labs and vitals. DVT and GI prophylaxis. Further recommendations as per clinical course of the patient DVT prophylaxis: Eliquis GI prophylaxis: Protonix PT/OT: Pending Prognosis is guarded
[2022-11-16] MEDS: DARBEPOETIN ALFA 40 MCG/0.4 ML SYRINGE SQ SCH (12:47)
--- NOTE | 2022-11-16 14:22 | P.PN ---
Subjective Progress Note Date: 11/16/22 This is an 82-year-old the patient was hospitalized 2 days back because of shor tness of breath, orthopnea, paroxysmal nocturnal dyspnea and significant edema in the lower extremity bilaterally. The patient is morbidly obese with a BMI of 40.4. The patient has obstructive sleep apnea. The patient also has chronic kidney disease, stage III, diabetes mellitus type 2, chronic into fibrillation and signs of chronic right-sided heart failure. The patient is also [id number] smoking history. He was not diagnosed having COPD in the past. The maternal Lasix on outpatient basis. Since his admission, the patient denies having any major improvement. Continues to have shortness of breath cough and congestion and extensive edema and his scrotum, abdomen and lower oximetry is bilaterally. Based on that, Pulmicort consultation was requested. The patient is on long-term and coagulation with Eliquis. The patient has no chest pain. No syncope. He is producing urine output and the patient has been negative fluid balance over the past 24 hours. Nevertheless, the balance of the fluid has not been enough to improve any of his symptoms. His chest x-ray at time of admission was consistent with CHF with bilateral pleural effusions and cardiac megaly and bibasilar pulmonary infiltrates. There is evidence of diffuse interstitial pattern. Blood work from today shows a GFR of 36, BUN is 29 with a creatinine of 1.7 and a sodium level is at 132. The discomfort at 6.8 with a hemoglobin of 8 and a platelet count of 57. Glucose at 127. Echocardiogram showed LV systolic function, borderline normal, dilated RV, severe pulmonary hypertension and moderate to severe mitral regurgitation and moderate degree of tricuspid regurgitation. The estimated the right-sided pressure was 64 mmHg. On today's evaluation of 11/13/2022, the patient is feeling better. The patient is less short of breath compared to yesterday and the patient has diabetes at least 3 L and the neck fluid balance is -3 L over the past 24 hours. He reports improvement of the abdominal swelling in the lower extremity edema. The patient remains on Lasix drip at 5 mg an hour and the patient is also Zaroxolyn. Nephrology has been consulted. Renal function remains stable. He is also on examination bronchodilators and steroids as the patient was told to have a component of COPD exacerbation also. CHF and interstitial edema and the findings are essentially stable. The patient is going 7.4 with a hemoglobin of 8.1. BUN is at 35 with a creatinine of 1.5 and a sodium level is at 133. Over all responses has been positive. Awaiting nephrology consultation. Cardiology has also been involved in the case as the patient has right-sided heart failure, chronic A. fib and mitral regurgitation. On 11/14/2022, patient is doing well. The patient continues to diurese adequately. The patient remains on Lasix drip at 5 mg an hour and the patient is also Zaroxolyn 5 mg by mouth twice a day. Fluid balance is negative in the order of more than 3 L and the patient continues to lose weight. The patient is improved and he is less short of breath. The patient is currently on 2 L of O2 nasal cannula with a pulse ox of 99 200%. No chest pain. No shortness of breath. Lower extremity edema, abdominal wall edema and scrotal edema or improving. On today's blood work, the WBC count 11.9 with a hemoglobin of 7.5. BUN is 45 with a creatinine 0.9 and his sodium level is at 134. He remains on bronchodilators. Remains on IV steroids. The patient remained atrial fibrillation and he has chronic mitral regurgitation. 11/13/2022, the patient remains on Lasix drip and is currently on 10 mg an hour. Doing well. No respiratory difficulties. Is also on Zaroxolyn 5 mg by mouth on a daily basis. The BUN is at 53 with a creatinine of 1.6 which is improved compared to yesterday. Sodium level is at 135. The echoes at 7.7 with a hemoglobin of 7.8 and a platelet count of 55. Noted the patient has chronic normocytic. The platelet count remains unchanged. The overall fluid balance has been negative and the patient weight is currently down to 110 kg and he is in negative fluid balance of at least 3.4 L over the past 24 hours. 11/16/2022, condition is essentially stable and the patient remains on Lasix drip at 10 mg an hour and Zaroxolyn 5 mg by mouth daily. The patient's body weight is down to 104 kg yesterday and the patient has been another 3.5 L negative fluid balance since yesterday. The patient is stable. He is a 65 with a creatinine of 2.01. Sodium is at 134. Serum bicarb is at 39. The patient is showing marked improvement in his lower extremity edema. He is still complaining of some exertional dyspnea. He remains on oxygen at 2 L/m nasal cannula. The patient otherwise has no complaints. Remains on anticoagulation with Eliquis 2.5 mg twice a day. Rest of the home medications are unchanged and the patient is also on a prednisone burst taper starting with 40 mg by mouth daily. Objective - Vital Signs Vital signs: Vital Signs Temp 97.7 F 11/16/22 08:05 Pulse 76 11/16/22 09:22 Resp 18 11/16/22 08:05 BP 123/59 11/16/22 08:05 Pulse Ox 98 11/16/22 09:07 FiO2 Intake & Output 11/15/22 11/16/22 11/16/22 18:59 06:59 18:59 Intake Total 456.833 956.834 360 Output Total 1625 3710 975 Balance -1168.167 -2753.166 -615 Weight 104.7 kg Intake: Intake, IV Titration 98.833 176.834 Amount Furosemide 100 mg In 98.833 176.834 Sodium Chloride 0.9% 90 ml @ 10 MG/HR 10 mls/hr IV .Q10H [facility] Rx#: [id number] Oral 358 780 360 Output: Urine 1625 3710 975 Other: Voiding Method Urinal Urinal Urinal - Exam Morbidly obese, calm and comfortable at 2 L of Oxymizer nasal cannula, the body mass index is 39.4 Head exam was generally normal. There was no scleral icterus or corneal arcus. Mucous membranes were moist. Neck was supple and without jugular venous distension, thyromegaly, or carotid bruits. Carotids were easily palpable bilaterally. There was no adenopathy. Lungs sounds are diminished bilaterally along with scattered Wheeze Heart sounds are distant, irregular, positive S1-S2 Abdomen is distended soft nontender and there is abdominal wall edema. No direct tenderness. No rebound tenderness. No guarding Extremities revealed +2-3 pitting edema and there is no cyanosis or clubbing Examination of the skin revealed no evidence of significant rashes, suspicious appearing nevi or other concerning lesions. Neurologically, the patient is awake and alert and the patient does not have any focal neurological deficit. Cranial nerves are essentially intact. - Labs CBC & Chem 7: 11/15/22 08:34 11/16/22 07:31 Labs: Abnormal Lab Results - Last 24 Hours (Table) 11/15/22 11/15/22 11/15/22 Range/Units 11:44 16:54 20:41 Sodium (137-145) mmol/L Chloride (98-107) mmol/L Carbon Dioxide (22-30) mmol/L BUN (9-20) mg/dL Creatinine (0.66-1.25) mg/dL Glucose (74-99) mg/dL POC Glucose (mg/dL) 163 H 206 H 237 H (70-110) mg/dL 11/16/22 11/16/22 Range/Units 06:13 07:31 Sodium 134 L (137-145) mmol/L Chloride 88 L (98-107) mmol/L Carbon Dioxide 39 H (22-30) mmol/L BUN 65 H (9-20) mg/dL Creatinine 2.01 H (0.66-1.25) mg/dL Glucose 124 H (74-99) mg/dL POC Glucose (mg/dL) 147 H (70-110) mg/dL Assessment and Plan Plan: Acute on chronic dyspnea with signs of right-sided heart failure/cor pulmonale with massive fluid overload. There may be also a component of valvular heart disease with moderate to severe mitral regurgitation as evidenced on the echo cardiogram. Patient has developed significant volume overload and the patient is responding well to diuresis and the patient is currently on 5 mg of Lasix drip and Zaroxolyn 5 mg by once a day. Weight is down. The patient continues to diurese and the patient is feeling much better, wanted status improved and the patient's respiratory status is also improved. The patient's body weight is currently down to 104 kg. Continues to be on Lasix drip and Zaroxolyn with adequate response. The patient is currently on 2 L of oxygen by nasal cannula. Mitral regurgitation, moderately severe. Severe pulmonary hypertension with estimated PA pressure of 64 Chronic lower extremity edema with interval worsening of fluid balance of massive fluid overload, improving with diuresis Chronic stage III kidney disease, creatinine is at 2.0 Diabetes mellitus type 2 Obstructive sleep apnea maintained on CPAP therapy on outpatient basis Previous history of CVA without any residual deficits Colonic polyps Skin cancer Chronic hypoxic respiratory failure and the patient has been on O2 on outpatient basis Chronic into fibrillation maintained on anticoagulation with Eliquis COPD Mild dysplasia with secondary anemia and thrombocytopenia Plan Oxygenation is stable at 2 L Continue prednisone burst taper starting with 40 mg Clinically improving and the patient is diuresing adequately Psychiatric Attendant on the case Continue Lasix drip at 10 mg an hour in combination with Zaroxolyn 5 mg by mouth once a day Fluid restriction Monitor renal function Monitor input output Titrate oxygen flow to maintain saturation above 90% Allow the patient uses home CPAP unit
[2022-11-16 16:44] LABS: Glucose,Whole Blood 246 mg/dL (70-110)
[2022-11-16 20:49] LABS: Glucose,Whole Blood 274 mg/dL (70-110)
[2022-11-16] MEDS: DORZOLAMIDE-TIMOLOL 2.23%/0.68 10ML BTL BOTH EYES SCH (20:58)
[2022-11-16] MEDS: LATANOPROST 0.005% OPHTH DROPS 2.5 ML BTL BOTH EYES SCH (20:58)
[2022-11-16] MEDS: TAMSULOSIN 0.4 MG CAP.ER.24H PO SCH (20:58)
[2022-11-17 06:19] LABS: Glucose,Whole Blood 176 mg/dL (70-110)
[2022-11-17] MEDS: PANTOPRAZOLE 40 MG TABLET PO SCH (06:25)
[2022-11-17] MEDS: INSULIN ASPART (NovoLOG) 100 UNIT/ML VIAL SQ SCH ×3 (06:25→17:40)
[2022-11-17] MEDS: FERROUS SULFATE 325 MG TAB PO SCH (08:32)
[2022-11-17] MEDS: MULTIVITAMINS, THERA 1 EACH TAB PO SCH (08:32)
[2022-11-17] MEDS: APIXABAN 2.5 MG TABLET PO SCH ×2 (08:32→21:43)
[2022-11-17] MEDS: metOLazone 5 MG TAB PO SCH (08:32)
[2022-11-17] MEDS: predniSONE 20 MG TAB PO SCH (08:32)
[2022-11-17] MEDS: PIOGLITAZONE 30 MG TAB PO SCH (08:32)
[2022-11-17] MEDS: POTASSIUM CHLORIDE ER 20 MEQ TAB.ER PO SCH (08:32)
[2022-11-17] MEDS: CYANOCOBALAMIN 500 MCG TAB PO SCH (08:33)
[2022-11-17] MEDS: ATORVASTATIN 40 MG TAB PO SCH (08:33)
[2022-11-17] MEDS: BUDESONIDE 0.5 MG/2 ML NEBU INHALATION SCH ×2 (08:34→21:54)
[2022-11-17] MEDS: IPRATROPIUM-ALBUTEROL 3 ML NEB INHALATION SCH ×3 (08:36→21:54)
[2022-11-17 09:44] LABS: African American GFR (CKD) 36 (>60 ml/min/1.73 sqM); Blood Urea Nitrogen 74 mg/dL (9-20); Calcium 9.8 mg/dL (8.4-10.2); Chloride 84 mmol/L (98-107); Glucose 234 mg/dL (74-99); Magnesium 1.9 mg/dL (1.6-2.3); Non-African American GFR(CKD) 31 (>60 ml/min/1.73 sqM); Potassium 3.6 mmol/L (3.5-5.1); Sodium 134 mmol/L (137-145)
[2022-11-17 09:45] LABS: Anisocytosis Moderate; HCT 22.9 % (39.0-53.0); HGB 7.7 gm/dL (13.0-17.5); MCH 37.4 pg (25.0-35.0); MCHC 33.5 g/dL (31.0-37.0); MCV 111.9 fL (80.0-100.0); Macrocytosis Marked; Mean Platelet Volume 13.3; Platelet Count 53 k/uL (150-450); RBC 2.05 m/uL (4.30-5.90); RDW 20.7 % (11.5-15.5); WBC 10.5 k/uL (3.8-10.6)
[2022-11-17 09:51] LABS: Anion Gap 6 mmol/L
[2022-11-17] MEDS ORDERED: GELATIN SPONGE,ABSORB (LARGE) 1 EACH SPONGE TOPICAL STA (09:55)
[2022-11-17 09:56] LABS: Carbon Dioxide 44 mmol/L (22-30)
[2022-11-17 10:41] LABS: Band Neutrophils % 1 %; Lymphocytes # (M) 2.31 k/uL (1.0-4.8); Monocytes # (M) 0.42 k/uL (0-1.0); Neutrophils % (M) 73 %; Nucleated Red Blood Cells 0 /100 WBC (0-0); Total Cells Counted 100
[2022-11-17 11:53] LABS: Glucose,Whole Blood 226 mg/dL (70-110)
--- NOTE | 2022-11-17 13:28 | P.PN ---
Subjective Progress Note Date: 11/17/22 This is an 82-year-old the patient was hospitalized 2 days back because of shor tness of breath, orthopnea, paroxysmal nocturnal dyspnea and significant edema in the lower extremity bilaterally. The patient is morbidly obese with a BMI of 40.4. The patient has obstructive sleep apnea. The patient also has chronic kidney disease, stage III, diabetes mellitus type 2, chronic into fibrillation and signs of chronic right-sided heart failure. The patient is also [id number] smoking history. He was not diagnosed having COPD in the past. The maternal Lasix on outpatient basis. Since his admission, the patient denies having any major improvement. Continues to have shortness of breath cough and congestion and extensive edema and his scrotum, abdomen and lower oximetry is bilaterally. Based on that, Pulmicort consultation was requested. The patient is on long-term and coagulation with Eliquis. The patient has no chest pain. No syncope. He is producing urine output and the patient has been negative fluid balance over the past 24 hours. Nevertheless, the balance of the fluid has not been enough to improve any of his symptoms. His chest x-ray at time of admission was consistent with CHF with bilateral pleural effusions and cardiac megaly and bibasilar pulmonary infiltrates. There is evidence of diffuse interstitial pattern. Blood work from today shows a GFR of 36, BUN is 29 with a creatinine of 1.7 and a sodium level is at 132. The discomfort at 6.8 with a hemoglobin of 8 and a platelet count of 57. Glucose at 127. Echocardiogram showed LV systolic function, borderline normal, dilated RV, severe pulmonary hypertension and moderate to severe mitral regurgitation and moderate degree of tricuspid regurgitation. The estimated the right-sided pressure was 64 mmHg. On today's evaluation of 11/13/2022, the patient is feeling better. The patient is less short of breath compared to yesterday and the patient has diabetes at least 3 L and the neck fluid balance is -3 L over the past 24 hours. He reports improvement of the abdominal swelling in the lower extremity edema. The patient remains on Lasix drip at 5 mg an hour and the patient is also Zaroxolyn. Nephrology has been consulted. Renal function remains stable. He is also on examination bronchodilators and steroids as the patient was told to have a component of COPD exacerbation also. CHF and interstitial edema and the findings are essentially stable. The patient is going 7.4 with a hemoglobin of 8.1. BUN is at 35 with a creatinine of 1.5 and a sodium level is at 133. Over all responses has been positive. Awaiting nephrology consultation. Cardiology has also been involved in the case as the patient has right-sided heart failure, chronic A. fib and mitral regurgitation. On 11/14/2022, patient is doing well. The patient continues to diurese adequately. The patient remains on Lasix drip at 5 mg an hour and the patient is also Zaroxolyn 5 mg by mouth twice a day. Fluid balance is negative in the order of more than 3 L and the patient continues to lose weight. The patient is improved and he is less short of breath. The patient is currently on 2 L of O2 nasal cannula with a pulse ox of 99 200%. No chest pain. No shortness of breath. Lower extremity edema, abdominal wall edema and scrotal edema or improving. On today's blood work, the WBC count 11.9 with a hemoglobin of 7.5. BUN is 45 with a creatinine 0.9 and his sodium level is at 134. He remains on bronchodilators. Remains on IV steroids. The patient remained atrial fibrillation and he has chronic mitral regurgitation. 11/13/2022, the patient remains on Lasix drip and is currently on 10 mg an hour. Doing well. No respiratory difficulties. Is also on Zaroxolyn 5 mg by mouth on a daily basis. The BUN is at 53 with a creatinine of 1.6 which is improved compared to yesterday. Sodium level is at 135. The echoes at 7.7 with a hemoglobin of 7.8 and a platelet count of 55. Noted the patient has chronic normocytic. The platelet count remains unchanged. The overall fluid balance has been negative and the patient weight is currently down to 110 kg and he is in negative fluid balance of at least 3.4 L over the past 24 hours. 11/16/2022, condition is essentially stable and the patient remains on Lasix drip at 10 mg an hour and Zaroxolyn 5 mg by mouth daily. The patient's body weight is down to 104 kg yesterday and the patient has been another 3.5 L negative fluid balance since yesterday. The patient is stable. He is a 65 with a creatinine of 2.01. Sodium is at 134. Serum bicarb is at 39. The patient is showing marked improvement in his lower extremity edema. He is still complaining of some exertional dyspnea. He remains on oxygen at 2 L/m nasal cannula. The patient otherwise has no complaints. Remains on anticoagulation with Eliquis 2.5 mg twice a day. Rest of the home medications are unchanged and the patient is also on a prednisone burst taper starting with 40 mg by mouth daily. 11/17/2022, the patient remains on Lasix drip and Zaroxolyn. The patient's weight is down to 97 kg and the patient has lost another 4 L of fluid balance over the past 24 hours. The breathing is stable for now. He is still on 2 L of oxygen by nasal cannula. He has developed some metabolic alkalosis. There is essentially related to diuresis. Serum bicarbs of 44. BUN is at 74 with a creatinine 1.9. The hemoglobin is at 7.7. Remains on anticoagulation. Also completing a course of prednisone burst taper. Objective - Vital Signs Vital signs: Vital Signs Temp 97.6 F 11/16/22 19:51 Pulse 68 11/17/22 08:45 Resp 18 11/17/22 04:00 BP 109/48 11/17/22 04:00 Pulse Ox 93 L 11/17/22 08:36 FiO2 2 11/17/22 08:36 Intake & Output 11/16/22 11/17/22 11/17/22 18:59 06:59 18:59 Intake Total 1112.833 79.833 118 Output Total 3475 1875 825 Balance -2362.167 -1795.167 -707 Weight 97.5 kg Intake: Intake, IV Titration 92.833 79.833 Amount Furosemide 100 mg In 92.833 79.833 Sodium Chloride 0.9% 90 ml @ 10 MG/HR 10 mls/hr IV .Q10H [facility] Rx#: [id number] Oral 1020 118 Output: Urine 3475 1875 825 Other: Voiding Method Urinal Urinal - Exam Morbidly obese, calm and comfortable at 2 L of Oxymizer nasal cannula, the body mass index is 39.4 Head exam was generally normal. There was no scleral icterus or corneal arcus. Mucous membranes were moist. Neck was supple and without jugular venous distension, thyromegaly, or carotid bruits. Carotids were easily palpable bilaterally. There was no adenopathy. Lungs sounds are diminished bilaterally along with scattered Wheeze Heart sounds are distant, irregular, positive S1-S2 Abdomen is distended soft nontender and there is abdominal wall edema. No direct tenderness. No rebound tenderness. No guarding Extremities revealed +2-3 pitting edema and there is no cyanosis or clubbing Examination of the skin revealed no evidence of significant rashes, suspicious appearing nevi or other concerning lesions. Neurologically, the patient is awake and alert and the patient does not have any focal neurological deficit. Cranial nerves are essentially intact. - Labs CBC & Chem 7: 11/17/22 08:58 11/17/22 08:58 Labs: Abnormal Lab Results - Last 24 Hours (Table) 11/16/22 11/16/22 11/16/22 Range/Units 11:32 16:43 20:46 RBC (4.30-5.90) m/uL Hgb (13.0-17.5) gm/dL Hct (39.0-53.0) % MCV (80.0-100.0) fL MCH (25.0-35.0) pg RDW (11.5-15.5) % Plt Count (150-450) k/uL Macrocytosis Sodium (137-145) mmol/L Chloride (98-107) mmol/L Carbon Dioxide (22-30) mmol/L BUN (9-20) mg/dL Creatinine (0.66-1.25) mg/dL Glucose (74-99) mg/dL POC Glucose (mg/dL) 147 H 246 H 274 H (70-110) mg/dL 11/17/22 11/17/22 11/17/22 Range/Units 06:16 08:58 08:58 RBC 2.05 L (4.30-5.90) m/uL Hgb 7.7 L (13.0-17.5) gm/dL Hct 22.9 L (39.0-53.0) % MCV 111.9 H (80.0-100.0) fL MCH 37.4 H (25.0-35.0) pg RDW 20.7 H (11.5-15.5) % Plt Count 53 L (150-450) k/uL Macrocytosis Marked A Sodium 134 L (137-145) mmol/L Chloride 84 L (98-107) mmol/L Carbon Dioxide 44 H* (22-30) mmol/L BUN 74 H (9-20) mg/dL Creatinine 1.94 H (0.66-1.25) mg/dL Glucose 234 H (74-99) mg/dL POC Glucose (mg/dL) 176 H (70-110) mg/dL Assessment and Plan Plan: Acute on chronic dyspnea with signs of right-sided heart failure/cor pulmonale with massive fluid overload. There may be also a component of valvular heart disease with moderate to severe mitral regurgitation as evidenced on the echo cardiogram. Patient has developed significant volume overload and the patient is responding well to diuresis and the patient is currently on 5 mg of Lasix drip and Zaroxolyn 5 mg by once a day. Weight is down. The patient continues to diurese and the patient is feeling much better, wanted status improved and the patient's respiratory status is also improved. The patient's body weight is currently down to 97 kg Mitral regurgitation, moderately severe. Severe pulmonary hypertension with estimated PA pressure of 64 Chronic lower extremity edema with interval worsening of fluid balance of massive fluid overload, improving with diuresis Chronic stage III kidney disease, creatinine is at 2.0 Diabetes mellitus type 2 Obstructive sleep apnea maintained on CPAP therapy on outpatient basis Previous history of CVA without any residual deficits Colonic polyps Skin cancer Chronic hypoxic respiratory failure and the patient has been on O2 on outpatient basis Chronic into fibrillation maintained on anticoagulation with Eliquis COPD Mild dysplasia with secondary anemia and thrombocytopenia Plan Oxygenation is stable at 2 L Continue prednisone burst taper starting with 40 mg Clinically improving and the patient is diuresing adequately, discontinue the Lasix services this patient to Lasix 40 mg IV every 24 hours in combination with Zaroxolyn National Sales Trainer on the case Give the patient Diamox 500 mg every 12 hours 2 doses Fluid restriction Monitor renal function Monitor input output Titrate oxygen flow to maintain saturation above 90% Allow the patient uses home CPAP unit Monitor the metabolic alkalosis We'll continue to follow
[2022-11-17 15:49] LABS: Glucose,Whole Blood 245 mg/dL (70-110)
--- NOTE | 2022-11-17 15:52 | P.PN ---
Subjective Progress Note Date: 11/17/22 Follow-up for acute kidney injury. Urine output of 5 L in the last 24 hours. Family at bedside. Edema improving, currently on 2 L oxygen. Objective - Vital Signs Vital signs: Vital Signs Temp 97.2 F L 11/17/22 08:20 Pulse 85 11/17/22 11:35 Resp 16 11/17/22 14:15 BP 142/64 11/17/22 11:35 Pulse Ox 98 11/17/22 11:35 FiO2 2 11/17/22 08:36 Intake & Output 11/16/22 11/17/22 11/17/22 18:59 06:59 18:59 Intake Total 1112.833 79.833 236 Output Total 3475 1875 1000 Balance -2362.167 -1795.167 -764 Weight 97.5 kg Intake: Intake, IV Titration 92.833 79.833 Amount Furosemide 100 mg In 92.833 79.833 Sodium Chloride 0.9% 90 ml @ 10 MG/HR 10 mls/hr IV .Q10H [facility] Rx#: [id number] Oral 1020 236 Output: Urine 3475 1875 1000 Other: Voiding Method Urinal Urinal Urinal - Exam No acute distress S1-S2 heard Decreased breath sounds Abdomen soft Edema - Labs CBC & Chem 7: 11/17/22 08:58 11/17/22 08:58 Labs: Abnormal Lab Results - Last 24 Hours (Table) 11/16/22 11/16/22 11/17/22 Range/Units 16:43 20:46 06:16 RBC (4.30-5.90) m/uL Hgb (13.0-17.5) gm/dL Hct (39.0-53.0) % MCV (80.0-100.0) fL MCH (25.0-35.0) pg RDW (11.5-15.5) % Plt Count (150-450) k/uL Macrocytosis Sodium (137-145) mmol/L Chloride (98-107) mmol/L Carbon Dioxide (22-30) mmol/L BUN (9-20) mg/dL Creatinine (0.66-1.25) mg/dL Glucose (74-99) mg/dL POC Glucose (mg/dL) 246 H 274 H 176 H (70-110) mg/dL 11/17/22 11/17/22 11/17/22 Range/Units 08:58 08:58 11:51 RBC 2.05 L (4.30-5.90) m/uL Hgb 7.7 L (13.0-17.5) gm/dL Hct 22.9 L (39.0-53.0) % MCV 111.9 H (80.0-100.0) fL MCH 37.4 H (25.0-35.0) pg RDW 20.7 H (11.5-15.5) % Plt Count 53 L (150-450) k/uL Macrocytosis Marked A Sodium 134 L (137-145) mmol/L Chloride 84 L (98-107) mmol/L Carbon Dioxide 44 H* (22-30) mmol/L BUN 74 H (9-20) mg/dL Creatinine 1.94 H (0.66-1.25) mg/dL Glucose 234 H (74-99) mg/dL POC Glucose (mg/dL) 226 H (70-110) mg/dL Assessment and Plan Assessment: #1 acute kidney injury secondary to CRS type I -Baseline creatinine 1.2-1.4 MG per DL -Urine analysis [place] #2 CK D stage IIIa secondary to nephrosclerosis #3 CHF with diastolic dysfunction #4 volume overload with lower extremity edema #5 alkalosis, suspected metabolic from diuretics. Rule out compensated respiratory acidosis Plan: #1 renal function stable, high. #2 agree with discontinuing Lasix drip. Currently on Lasix IV push 40 mg along with metolazone 5 mg daily. #3 change Lasix to torsemide 40 mg by mouth daily and decrease metolazone to 2.5 mg every other day. #4 check venous blood gases. #5 continue with acetazolamide on for now for alkalosis. #6 daily labs
[2022-11-17 16:58] LABS: Glucose,Whole Blood 244 mg/dL (70-110)
[2022-11-17 17:28] LABS: ABG Base Excess 18.8 mmol/L; ABG Oxygen Saturation 97.7 % (94-97); ABG PCO2 50 mmHg (35-45); ABG PH 7.53 (7.35-7.45); ABG PO2 85 mmHg (83-108); ABG TCO2 43 mmol/L (19-24); Allen Test Performed? Yes
[2022-11-17 17:30] LABS: ABG HCO3 42 mmol/L (21-25)
[2022-11-17 17:35] LABS: African American GFR (CKD) 34 (>60 ml/min/1.73 sqM); Blood Urea Nitrogen 69 mg/dL (9-20); Calcium 9.9 mg/dL (8.4-10.2); Chloride 86 mmol/L (98-107); Glucose 221 mg/dL (74-99); Non-African American GFR(CKD) 29 (>60 ml/min/1.73 sqM); Potassium 3.8 mmol/L (3.5-5.1); Sodium 135 mmol/L (137-145)
[2022-11-17] MEDS: THIAMINE 100 MG/ML 2 ML VIAL IVP SCH (17:40)
[2022-11-17 17:41] LABS: Anion Gap 8 mmol/L
[2022-11-17 17:42] LABS: Carbon Dioxide 41 mmol/L (22-30)
--- NOTE | 2022-11-17 19:21 | P.PN ---
Subjective This is a pleasant 82 years old male with multiple medical problems including history of heart failure presents with worsening dyspnea and leg swelling on and he was found with fluid overload secondary to diastolic CHF, echocardiogram from 09/2022 showing ejection fraction 55%. Currently shingle grader signed off the case and patient being monitored closely by nephrology team. He remains on Lasix drip 10 mg/h, creatinine 1.4, 1.6 and 2.1. Discuss case with nephrology team who recommended to keep the Lasix drip for now. Pulmonary team on the case for mild COPD exacerbation and currently on a prednisone 40 mg. Hemoglobin 7.8. 11/17/2022 patient CHF and fluid overload improving, his oxygen saturation is acceptable and wants only with minimal crepitation mainly on the right side however he still have 2+ leg edema. However patient developed more alkalosis therefore Lasix drip was stopped and started on torsemide while the dose for Zaroxolyn was lowered to 2.5 mg. Creatinine is stable at 2.0 compared to 1.4 on admission. However patient become more confused today most likely secondary to metabolic encephalopathy and toxic encephalopathy. No recent fall. Patient fell about 3 days ago at that time CT of the brain was negative. Workup showing ammonia level is high at 255 and lactulose is added. We will continue neuro check and consider repeat CT of the brain condition worsens Pressure applied with sponge gel to bleeding superficial ulcer on the right forearm. Objective - Vital Signs Vital signs: Vital Signs Temp 97.2 F L 11/17/22 08:20 Pulse 68 11/17/22 08:45 Resp 18 11/17/22 08:20 BP 144/89 11/17/22 08:20 Pulse Ox 93 L 11/17/22 08:36 FiO2 2 11/17/22 08:36 Intake & Output 11/16/22 11/17/22 11/17/22 18:59 06:59 18:59 Intake Total 1112.833 79.833 236 Output Total 1465 1875 1000 Balance -2362.167 -1795.167 -060 Weight 97.5 kg Intake: Intake, IV Titration 92.833 79.833 Amount Furosemide 100 mg In 92.833 79.833 Sodium Chloride 0.9% 90 ml @ 10 MG/HR 10 mls/hr IV .Q10H [facility] Rx#: [id number] Oral 1020 236 Output: Urine 2272 1293 1000 Other: Voiding Method Urinal Urinal Urinal - Exam GENERAL: The patient is alert and oriented x3, not in any acute distress. Well developed, well nourished. HEENT: Pupils are round and equally reacting to light. EOMI. No scleral icterus. No conjunctival pallor. Normocephalic, atraumatic. No pharyngeal erythema. No thyromegaly. CARDIOVASCULAR: S1 and S2 present. No murmurs, rubs, or gallops. -PULMONARY: Chest is clear to auscultation, no wheezing , bilateral basal crackles. ABDOMEN: Soft, nontender, nondistended, normoactive bowel sounds. No palpable organomegaly. MUSCULOSKELETAL: No joint swelling or deformity. -EXTREMITIES: No cyanosis, clubbing, patient has bilateral pitting like edema. NEUROLOGICAL: Gross neurological examination did not reveal any focal deficits. SKIN: No rashes. no petechiae. - Labs CBC & Chem 7: 11/17/22 08:58 11/17/22 17:12 Labs: Abnormal Lab Results - Last 24 Hours (Table) 11/16/22 11/16/22 11/17/22 Range/Units 16:43 20:46 06:16 RBC (4.30-5.90) m/uL Hgb (13.0-17.5) gm/dL Hct (39.0-53.0) % MCV (80.0-100.0) fL MCH (25.0-35.0) pg RDW (11.5-15.5) % Plt Count (150-450) k/uL Macrocytosis Sodium (137-145) mmol/L Chloride (98-107) mmol/L Carbon Dioxide (22-30) mmol/L BUN (9-20) mg/dL Creatinine (0.66-1.25) mg/dL Glucose (74-99) mg/dL POC Glucose (mg/dL) 246 H 274 H 176 H (70-110) mg/dL 11/17/22 11/17/22 11/17/22 Range/Units 08:58 08:58 11:51 RBC 2.05 L (4.30-5.90) m/uL Hgb 7.7 L (13.0-17.5) gm/dL Hct 22.9 L (39.0-53.0) % MCV 111.9 H (80.0-100.0) fL MCH 37.4 H (25.0-35.0) pg RDW 20.7 H (11.5-15.5) % Plt Count 53 L (150-450) k/uL Macrocytosis Marked A Sodium 134 L (137-145) mmol/L Chloride 84 L (98-107) mmol/L Carbon Dioxide 44 H* (22-30) mmol/L BUN 74 H (9-20) mg/dL Creatinine 1.94 H (0.66-1.25) mg/dL Glucose 234 H (74-99) mg/dL POC Glucose (mg/dL) 226 H (70-110) mg/dL Assessment and Plan Assessment: Altered mental status most likely metabolic/toxic encephalopathy. Recent CT of the brain is negative Acute diastolic CHF Acute kidney injury on chronic kidney disease stage III metabolic alkalosis moderate to severe mitral regurgitation Severe pulmonary hypertension Mild COPD exacerbation Plan: Discontinue Lasix drip. Patient currently on torsemide on small dose of Zaroxolyn Capper Machine Operator in of the case. Pulmonary team on the case and currently on a prednisone 40 mg Photograph Developer Signed off the case start lactulose for high ammonia Neuro check Monitor her mentation Labs and medication were reviewed.. Continue same treatment. Continue with symptomatic treatment. Resume home medication. Monitor labs and vitals. DVT and GI prophylaxis. Further recommendations as per clinical course of the pat ient DVT prophylaxis: Eliquis GI prophylaxis: Protonix PT/OT: Pending Prognosis is guarded
[2022-11-17] MEDS ORDERED: QUEtiapine 25 MG TAB PO STA (19:46)
[2022-11-17] MEDS ORDERED: HALOPERIDOL LACTATE 5 MG/ML 1 ML VIAL IVP STA (21:35)
[2022-11-17] MEDS: DORZOLAMIDE-TIMOLOL 2.23%/0.68 10ML BTL BOTH EYES SCH (21:43)
[2022-11-17] MEDS: LATANOPROST 0.005% OPHTH DROPS 2.5 ML BTL BOTH EYES SCH (21:43)
[2022-11-17] MEDS ORDERED: LACTULOSE 20 GM/30 ML CUP PO SCH (22:00)
[2022-11-18] MEDS: INSULIN ASPART (NovoLOG) 100 UNIT/ML VIAL SQ SCH ×5 (00:03→21:55)
[2022-11-18] MEDS: TAMSULOSIN 0.4 MG CAP.ER.24H PO SCH ×2 (00:03→20:06)
--- NOTE | 2022-11-18 04:21 | CT ---
EXAM: CT Head Without Intravenous Contrast CLINICAL HISTORY: ITS.REASON CT Reason: confusion on eliquis TECHNIQUE: Axial computed tomography images of the head/brain without intravenous contrast. CTDI is 49.1 mGy and DLP is 1217.4 mGy-cm. This CT exam was performed using one or more of the following dose reduction techniques: automated exposure control, adjustment of the mA and/or kV according to patient size, and/or use of iterative reconstruction technique. COMPARISON: Comparison made to prior PET/CT from November 14, 2022. FINDINGS: Brain: Unremarkable. No hemorrhage. Mild nonspecific white matter changes. No edema. Ventricles: Mild ventriculomegaly. Bones/joints: Hypoplastic posterior ring of C1 narrowing the foramen magnum. .No acute fracture. Dental caries with periapical lucency about running tooth #5 concern for periodical abscess. Soft tissues: Bilateral lens replacements. Findings concerning for thyroid ophthalmopathy, which can be seen in the setting of Graves' disease. Sinuses: Unremarkable as visualized. No acute sinusitis. Mastoid air cells: Status post status post canal down left mastoidectomy. Moderate amount of fluid in the right mastoid air cells. No mastoid effusion. IMPRESSION: No evidence of acute intracranial pathology. Findings concerning for thyroid ophthalmopathy, which can be seen in the setting of Graves' disease.
[2022-11-18] MEDS ORDERED: LACTULOSE 200 GM/300 ML (FROM 1/2 GAL JUG) RECTAL SCH (06:00)
[2022-11-18] MEDS: PANTOPRAZOLE 40 MG TABLET PO SCH (06:09)
[2022-11-18 06:26] LABS: Appearance,Urine Clear (Clear); Bilirubin,Urine Negative (Negative); Blood,Urine Negative (Negative); Color,Urine Light Yellow; Glucose,Urine (UA) Negative (Negative); Ketones,Urine Negative (Negative); Leukocyte Esterase,Urine Negative (Negative); Nitrite,Urine Negative (Negative); Protein,Urine Negative (Negative); Urobilinogen,Urine <2.0 mg/dL (<2.0)
[2022-11-18 06:51] LABS: Glucose,Whole Blood 184 mg/dL (70-110)
[2022-11-18 08:17] LABS: Anisocytosis Moderate; HCT 23.4 % (39.0-53.0); HGB 7.8 gm/dL (13.0-17.5); Hypochromasia Slight; MCHC 33.2 g/dL (31.0-37.0); MCV 114.3 fL (80.0-100.0); Macrocytosis Marked; Mean Platelet Volume 11.8; RBC 2.05 m/uL (4.30-5.90); RDW 20.9 % (11.5-15.5); WBC 17.4 k/uL (3.8-10.6)
[2022-11-18 08:28] LABS: African American GFR (CKD) 37 (>60 ml/min/1.73 sqM); Anion Gap 6 mmol/L; Blood Urea Nitrogen 70 mg/dL (9-20); Calcium 9.9 mg/dL (8.4-10.2); Carbon Dioxide 36 mmol/L (22-30); Chloride 93 mmol/L (98-107); Glucose 156 mg/dL (74-99); Non-African American GFR(CKD) 32 (>60 ml/min/1.73 sqM); Potassium 3.4 mmol/L (3.5-5.1); Sodium 135 mmol/L (137-145)
[2022-11-18] MEDS: IPRATROPIUM-ALBUTEROL 3 ML NEB INHALATION SCH ×3 (08:34→19:25)
[2022-11-18] MEDS: BUDESONIDE 0.5 MG/2 ML NEBU INHALATION SCH ×2 (08:34→19:26)
[2022-11-18 08:36] LABS: VBG PH 7.6 (7.31-7.41)
[2022-11-18 08:38] LABS: ALT 44 U/L (4-49); AST 73 U/L (17-59); African American GFR (CKD) 37 (>60 ml/min/1.73 sqM); Albumin 3.1 g/dL (3.5-5.0); Alkaline Phosphatase 68 U/L (38-126); Anion Gap 8 mmol/L; Blood Urea Nitrogen 69 mg/dL (9-20); Calcium 9.9 mg/dL (8.4-10.2); Carbon Dioxide 34 mmol/L (22-30); Chloride 94 mmol/L (98-107); Glucose 157 mg/dL (74-99); Non-African American GFR(CKD) 32 (>60 ml/min/1.73 sqM); Potassium 3.4 mmol/L (3.5-5.1); Sodium 136 mmol/L (137-145); Total Bilirubin 2.9 mg/dL (0.2-1.3); Total Protein 6.9 g/dL (6.3-8.2)
[2022-11-18 08:39] LABS: INR 1.6 (<1.2); Prothrombin Time 16.4 sec (9.0-12.0)
[2022-11-18 08:42] LABS: Platelet Count 82 k/uL (150-450)
[2022-11-18] MEDS ORDERED: FUROSEMIDE 10 MG/ML 4 ML VIAL IV SCH (09:00)
[2022-11-18] MEDS ORDERED: metOLazone 2.5 MG TAB PO SCH (09:00)
[2022-11-18] MEDS: LACTULOSE 200 GM/300 ML (FROM 1/2 GAL JUG) RECTAL SCH ×3 (09:23→21:33)
[2022-11-18 09:51] LABS: Basophilic Stippling Present; Lymphocytes # (M) 2.26 k/uL (1.0-4.8); Monocytes # (M) 2.26 k/uL (0-1.0); Neutrophils # (M) 12.88 k/uL (1.3-7.7); Neutrophils % (M) 74 %; Nucleated Red Blood Cells 0 /100 WBC (0-0); Target Cells Present; Total Cells Counted 100
[2022-11-18] MEDS: APIXABAN 2.5 MG TABLET PO SCH ×2 (10:18→20:05)
[2022-11-18] MEDS: ATORVASTATIN 40 MG TAB PO SCH (10:18)
[2022-11-18] MEDS: FERROUS SULFATE 325 MG TAB PO SCH (10:20)
[2022-11-18] MEDS: MULTIVITAMINS, THERA 1 EACH TAB PO SCH (10:20)
[2022-11-18] MEDS: POTASSIUM CHLORIDE ER 20 MEQ TAB.ER PO SCH (10:20)
[2022-11-18] MEDS: predniSONE 20 MG TAB PO SCH (10:20)
[2022-11-18] MEDS: TORSEMIDE 20 MG TAB PO SCH (10:21)
[2022-11-18] MEDS: SODIUM CHLORIDE 0.45% 1,000 ML IV SCH ×2 (11:33→22:14)
[2022-11-18 11:39] LABS: Glucose,Whole Blood 206 mg/dL (70-110)
[2022-11-18 11:49] LABS: ABG HCO3 33 mmol/L (21-25); ABG Oxygen Saturation 78.1 % (94-97); ABG PCO2 40 mmHg (35-45); ABG PH 7.53 (7.35-7.45); ABG TCO2 34 mmol/L (19-24); Allen Test Performed? Yes
[2022-11-18 11:51] LABS: ABG PO2 44 mmHg (83-108)
--- NOTE | 2022-11-18 12:18 | XR ---
EXAMINATION TYPE: XR chest 1V DATE OF EXAM: 11/18/2022 HISTORY: Shortness of breath. COMPARISON: 11/13/2022 TECHNIQUE: Single view of the chest is submitted. FINDINGS: Demonstrated are scattered senescent parenchymal change. Continued cardiomegaly with pulmonary venous congestion slightly improved from prior study. No eviden ce for focal consolidation. Hilar and mediastinal structures are within normal limits. Degenerative changes are seen of the dorsal spine. IMPRESSION: 1. Continued cardiomegaly with pulmonary venous congestion slightly improved from prior study. No ev idence for focal consolidation.
--- NOTE | 2022-11-18 12:37 | P.PN ---
Subjective Progress Note Date: 11/18/22 This is an 82-year-old the patient was hospitalized 2 days back because of shor tness of breath, orthopnea, paroxysmal nocturnal dyspnea and significant edema in the lower extremity bilaterally. The patient is morbidly obese with a BMI of 40.4. The patient has obstructive sleep apnea. The patient also has chronic kidney disease, stage III, diabetes mellitus type 2, chronic into fibrillation and signs of chronic right-sided heart failure. The patient is also [id number] smoking history. He was not diagnosed having COPD in the past. The maternal Lasix on outpatient basis. Since his admission, the patient denies having any major improvement. Continues to have shortness of breath cough and congestion and extensive edema and his scrotum, abdomen and lower oximetry is bilaterally. Based on that, Pulmicort consultation was requested. The patient is on long-term and coagulation with Eliquis. The patient has no chest pain. No syncope. He is producing urine output and the patient has been negative fluid balance over the past 24 hours. Nevertheless, the balance of the fluid has not been enough to improve any of his symptoms. His chest x-ray at time of admission was consistent with CHF with bilateral pleural effusions and cardiac megaly and bibasilar pulmonary infiltrates. There is evidence of diffuse interstitial pattern. Blood work from today shows a GFR of 36, BUN is 29 with a creatinine of 1.7 and a sodium level is at 132. The discomfort at 6.8 with a hemoglobin of 8 and a platelet count of 57. Glucose at 127. Echocardiogram showed LV systolic function, borderline normal, dilated RV, severe pulmonary hypertension and moderate to severe mitral regurgitation and moderate degree of tricuspid regurgitation. The estimated the right-sided pressure was 64 mmHg. On today's evaluation of 11/13/2022, the patient is feeling better. The patient is less short of breath compared to yesterday and the patient has diabetes at least 3 L and the neck fluid balance is -3 L over the past 24 hours. He reports improvement of the abdominal swelling in the lower extremity edema. The patient remains on Lasix drip at 5 mg an hour and the patient is also Zaroxolyn. Nephrology has been consulted. Renal function remains stable. He is also on examination bronchodilators and steroids as the patient was told to have a component of COPD exacerbation also. CHF and interstitial edema and the findings are essentially stable. The patient is going 7.4 with a hemoglobin of 8.1. BUN is at 35 with a creatinine of 1.5 and a sodium level is at 133. Over all responses has been positive. Awaiting nephrology consultation. Cardiology has also been involved in the case as the patient has right-sided heart failure, chronic A. fib and mitral regurgitation. On 11/14/2022, patient is doing well. The patient continues to diurese adequately. The patient remains on Lasix drip at 5 mg an hour and the patient is also Zaroxolyn 5 mg by mouth twice a day. Fluid balance is negative in the order of more than 3 L and the patient continues to lose weight. The patient is improved and he is less short of breath. The patient is currently on 2 L of O2 nasal cannula with a pulse ox of 99 200%. No chest pain. No shortness of breath. Lower extremity edema, abdominal wall edema and scrotal edema or improving. On today's blood work, the WBC count 11.9 with a hemoglobin of 7.5. BUN is 45 with a creatinine 0.9 and his sodium level is at 134. He remains on bronchodilators. Remains on IV steroids. The patient remained atrial fibrillation and he has chronic mitral regurgitation. 11/13/2022, the patient remains on Lasix drip and is currently on 10 mg an hour. Doing well. No respiratory difficulties. Is also on Zaroxolyn 5 mg by mouth on a daily basis. The BUN is at 53 with a creatinine of 1.6 which is improved compared to yesterday. Sodium level is at 135. The echoes at 7.7 with a hemoglobin of 7.8 and a platelet count of 55. Noted the patient has chronic normocytic. The platelet count remains unchanged. The overall fluid balance has been negative and the patient weight is currently down to 110 kg and he is in negative fluid balance of at least 3.4 L over the past 24 hours. 11/16/2022, condition is essentially stable and the patient remains on Lasix drip at 10 mg an hour and Zaroxolyn 5 mg by mouth daily. The patient's body weight is down to 104 kg yesterday and the patient has been another 3.5 L negative fluid balance since yesterday. The patient is stable. He is a 65 with a creatinine of 2.01. Sodium is at 134. Serum bicarb is at 39. The patient is showing marked improvement in his lower extremity edema. He is still complaining of some exertional dyspnea. He remains on oxygen at 2 L/m nasal cannula. The patient otherwise has no complaints. Remains on anticoagulation with Eliquis 2.5 mg twice a day. Rest of the home medications are unchanged and the patient is also on a prednisone burst taper starting with 40 mg by mouth daily. 11/17/2022, the patient remains on Lasix drip and Zaroxolyn. The patient's weight is down to 97 kg and the patient has lost another 4 L of fluid balance over the past 24 hours. The breathing is stable for now. He is still on 2 L of oxygen by nasal cannula. He has developed some metabolic alkalosis. There is essentially related to diuresis. Serum bicarbs of 44. BUN is at 74 with a creatinine 1.9. The hemoglobin is at 7.7. Remains on anticoagulation. Also completing a course of prednisone burst taper. On 11/18/2022, the patient's condition is decompensated. Overnight, the patient became aggressive, confused and agitated. He was given samples 25 mg at bedtime it was also given Haldol IV. This morning is more lethargic. He is aggressively diuresed with Lasix and Zaroxolyn. The patient is currently off Lasix. He was switched to oral Demadex and I discontinued Zaroxolyn. Note that the patient has become quite alkalotic. He received Diamox and the blood gas that was done today shows a pH of 7.3 with a pCO2 of 40. The pO2 was 44 on FiO2 of 28%. At the same time, the patient's serum bicarb was at 34 and this dropped from 41. Rest of the blood work shows a BUN of 69 and a creatinine of 1.9 and sodium levels of 136. Potassium levels at 3.4. WBC count is at 17.4 with a hemoglobin of 7.8 and a platelet count of 82. His serum ammonia level was found to be quite elevated at 255. The patient was started on lactulose enemas. CAT scan of the brain showed no acute abnormalities. A repeat chest x-ray was done today shows cardiomegaly with mild vascular congestion and overall picture is essentially improved. Objective - Vital Signs Vital signs: Vital Signs Temp 99.7 F H 11/18/22 08:05 Pulse 108 H 11/18/22 11:27 Resp 16 11/18/22 08:05 BP 118/76 11/18/22 08:05 Pulse Ox 94 L 11/18/22 08:37 FiO2 28 11/17/22 08:36 Intake & Output 11/17/22 11/18/22 11/18/22 18:59 06:59 18:59 Intake Total 354 540 Output Total 2049 2640 450 Balance -169 -2100 -450 Weight 83.5 kg Intake: Oral 354 540 Output: Urine 2049 264 450 Straight 450 Uretheral (Ruiz) 450 Other: Voiding Method Urinal Urinal Indwelling Catheter # Bowel Movements 1 - Labs CBC & Chem 7: 11/18/22 07:12 11/18/22 07:12 Labs: Abnormal Lab Results - Last 24 Hours (Table) 11/17/22 11/17/22 11/17/22 Range/Units 15:47 16:49 17:12 WBC (3.8-10.6) k/uL RBC (4.30-5.90) m/uL Hgb (13.0-17.5) gm/dL Hct (39.0-53.0) % MCV (80.0-100.0) fL MCH (25.0-35.0) pg RDW (11.5-15.5) % Plt Count (150-450) k/uL Neutrophils # (Manual) (1.3-7.7) k/uL Monocytes # (Manual) (0-1.0) k/uL Macrocytosis PT (9.0-12.0) sec INR (<1.2) ABG pH (7.35-7.45) ABG pCO2 (35-45) mmHg ABG pO2 (83-108) mmHg ABG HCO3 (21-25) mmol/L ABG Total CO2 (19-24) mmol/L ABG O2 Saturation (94-97) % VBG pH (7.31-7.41) VBG HCO3 (24-28) mmol/L Sodium 135 L (137-145) mmol/L Potassium (3.5-5.1) mmol/L Chloride 86 L (98-107) mmol/L Carbon Dioxide 41 H* (22-30) mmol/L BUN 69 H (9-20) mg/dL Creatinine 2.05 H (0.66-1.25) mg/dL Glucose 221 H (74-99) mg/dL POC Glucose (mg/dL) 245 H 244 H (70-110) mg/dL Total Bilirubin (0.2-1.3) mg/dL AST (17-59) U/L Ammonia (<30) umol/L Albumin (3.5-5.0) g/dL Vitamin B12 (200.0-944.0) pg/mL 11/17/22 11/17/22 11/17/22 Range/Units 17:12 17:12 17:26 WBC (3.8-10.6) k/uL RBC (4.30-5.90) m/uL Hgb (13.0-17.5) gm/dL Hct (39.0-53.0) % MCV (80.0-100.0) fL MCH (25.0-35.0) pg RDW (11.5-15.5) % Plt Count (150-450) k/uL Neutrophils # (Manual) (1.3-7.7) k/uL Monocytes # (Manual) (0-1.0) k/uL Macrocytosis PT (9.0-12.0) sec INR (<1.2) ABG pH 7.53 H (7.35-7.45) ABG pCO2 50 H (35-45) mmHg ABG pO2 (83-108) mmHg ABG HCO3 42 H* (21-25) mmol/L ABG Total CO2 43 H (19-24) mmol/L ABG O2 Saturation 97.7 H (94-97) % VBG pH (7.31-7.41) VBG HCO3 (24-28) mmol/L Sodium (137-145) mmol/L Potassium (3.5-5.1) mmol/L Chloride (98-107) mmol/L Carbon Dioxide (22-30) mmol/L BUN (9-20) mg/dL Creatinine (0.66-1.25) mg/dL Glucose (74-99) mg/dL POC Glucose (mg/dL) (70-110) mg/dL Total Bilirubin (0.2-1.3) mg/dL AST (17-59) U/L Ammonia 255 H (<30) umol/L Albumin (3.5-5.0) g/dL Vitamin B12 >3600.0 H (200.0-944.0) pg/mL 11/18/22 11/18/22 11/18/22 Range/Units 06:49 07:12 07:12 WBC (3.8-10.6) k/uL RBC (4.30-5.90) m/uL Hgb (13.0-17.5) gm/dL Hct (39.0-53.0) % MCV (80.0-100.0) fL MCH (25.0-35.0) pg RDW (11.5-15.5) % Plt Count (150-450) k/uL Neutrophils # (Manual) (1.3-7.7) k/uL Monocytes # (Manual) (0-1.0) k/uL Macrocytosis PT (9.0-12.0) sec INR (<1.2) ABG pH (7.35-7.45) ABG pCO2 (35-45) mmHg ABG pO2 (83-108) mmHg ABG HCO3 (21-25) mmol/L ABG Total CO2 (19-24) mmol/L ABG O2 Saturation (94-97) % VBG pH 7.60 H* (7.31-7.41) VBG HCO3 36 H (24-28) mmol/L Sodium 135 L (137-145) mmol/L Potassium 3.4 L (3.5-5.1) mmol/L Chloride 93 L (98-107) mmol/L Carbon Dioxide 36 H (22-30) mmol/L BUN 70 H (9-20) mg/dL Creatinine 1.91 H (0.66-1.25) mg/dL Glucose 156 H (74-99) mg/dL POC Glucose (mg/dL) 184 H (70-110) mg/dL Total Bilirubin (0.2-1.3) mg/dL AST (17-59) U/L Ammonia (<30) umol/L Albumin (3.5-5.0) g/dL Vitamin B12 (200.0-944.0) pg/mL 11/18/22 11/18/22 11/18/22 Range/Units 07:12 07:12 07:12 WBC 17.4 H (3.8-10.6) k/uL RBC 2.05 L (4.30-5.90) m/uL Hgb 7.8 L (13.0-17.5) gm/dL Hct 23.4 L (39.0-53.0) % MCV 114.3 H (80.0-100.0) fL MCH 38.0 H (25.0-35.0) pg RDW 20.9 H (11.5-15.5) % Plt Count 82 L D (150-450) k/uL Neutrophils # (Manual) 12.88 H (1.3-7.7) k/uL Monocytes # (Manual) 2.26 H (0-1.0) k/uL Macrocytosis Marked A PT 16.4 H (9.0-12.0) sec INR 1.6 H (<1.2) ABG pH (7.35-7.45) ABG pCO2 (35-45) mmHg ABG pO2 (83-108) mmHg ABG HCO3 (21-25) mmol/L ABG Total CO2 (19-24) mmol/L ABG O2 Saturation (94-97) % VBG pH (7.31-7.41) VBG HCO3 (24-28) mmol/L Sodium 136 L (137-145) mmol/L Potassium 3.4 L (3.5-5.1) mmol/L Chloride 94 L (98-107) mmol/L Carbon Dioxide 34 H (22-30) mmol/L BUN 69 H (9-20) mg/dL Creatinine 1.93 H (0.66-1.25) mg/dL Glucose 157 H (74-99) mg/dL POC Glucose (mg/dL) (70-110) mg/dL Total Bilirubin 2.9 H (0.2-1.3) mg/dL AST 73 H (17-59) U/L Ammonia (<30) umol/L Albumin 3.1 L (3.5-5.0) g/dL Vitamin B12 (200.0-944.0) pg/mL 11/18/11/18/22 Range/Units 11:37 11:46 WBC (3.8-10.6) k/uL RBC (4.30-5.90) m/uL Hgb (13.0-17.5) gm/dL Hct (39.0-53.0) % MCV (80.0-100.0) fL MCH (25.0-35.0) pg RDW (11.5-15.5) % Plt Count (150-450) k/uL Neutrophils # (Manual) (1.3-7.7) k/uL Monocytes # (Manual) (0-1.0) k/uL Macrocytosis PT (9.0-12.0) sec INR (<1.2) ABG pH 7.53 H (7.35-7.45) ABG pCO2 (35-45) mmHg ABG pO2 44 L* (83-108) mmHg ABG HCO3 33 H (21-25) mmol/L ABG Total CO2 34 H (19-24) mmol/L ABG O2 Saturation 78.1 L (94-97) % VBG pH (7.31-7.41) VBG HCO3 (24-28) mmol/L Sodium (137-145) mmol/L Potassium (3.5-5.1) mmol/L Chloride (98-107) mmol/L Carbon Dioxide (22-30) mmol/L BUN (9-20) mg/dL Creatinine (0.66-1.25) mg/dL Glucose (74-99) mg/dL POC Glucose (mg/dL) 206 H (70-110) mg/dL Total Bilirubin (0.2-1.3) mg/dL AST (17-59) U/L Ammonia (<30) umol/L Albumin (3.5-5.0) g/dL Vitamin B12 (200.0-944.0) pg/mL Assessment and Plan Plan: Acute on chronic dyspnea with signs of right-sided heart failure/cor pulmonale with massive fluid overload. There may be also a component of valvular heart disease with moderate to severe mitral regurgitation as evidenced on the echo cardiogram. Patient has developed significant volume overload and the patient volume status was optimized with aggressive diuresis and the patient lost significant amount of weight and the most recent weight management was down to 97 kg. The patient was taken off the diuretics for now. Mitral regurgitation, moderately severe. Severe pulmonary hypertension with estimated PA pressure of 64 Chronic lower extremity edema with interval worsening of fluid balance of massive fluid overload, improving with diuresis Altered mental status, essentially metabolic in nature/metabolic encephalopathy. The patient is quite alkalotic the patient was treated with Diamox. The patient was aggressively is diuresed. There may be a component of delirium. There may be also a component of hepatic encephalopathy. Ammonia levels, elevated. Chronic stage III kidney disease, creatinine is at 1.9 Diabetes mellitus type 2 Obstructive sleep apnea maintained on CPAP therapy on outpatient basis Previous history of CVA without any residual deficits Colonic polyps Skin cancer Chronic hypoxic respiratory failure and the patient has been on O2 on outpatient basis Chronic into fibrillation maintained on anticoagulation with Eliquis COPD Mild dysplasia with secondary anemia and thrombocytopenia Plan Oxygenation is stable at 2 L, titrate oxygen flow to maintain a saturation above 90% basal and the most recent blood gases Monitor mental status Continue lactulose Start the patient on gentle hydration with half saline at rate of 75 mL an hour Monitor ammonia levels CAT scan of the brain is negative Chest x-rays showing 30 mg 1 vascular congestion Continue prednisone burst taper starting with 40 mg Discontinue diuretics for now Monitor renal function Monitor input output Titrate oxygen flow to maintain saturation above 90% Allow the patient uses home CPAP unit Monitor the metabolic alkalosis We'll continue to follow
[2022-11-18] MEDS: THIAMINE 100 MG/ML 2 ML VIAL IVP SCH (14:37)
--- NOTE | 2022-11-18 14:57 | P.PN ---
Subjective This is a pleasant 82 years old male with multiple medical problems including history of heart failure presents with worsening dyspnea and leg swelling on and he was found with fluid overload secondary to diastolic CHF, echocardiogram from 09/2022 showing ejection fraction 55%. Currently carbon plant grinder signed off the case and patient being monitored closely by nephrology team. He remains on Lasix drip 10 mg/h, creatinine 1.4, 1.6 and 2.1. Discuss case with nephrology team who recommended to keep the Lasix drip for now. Pulmonary team on the case for mild COPD exacerbation and currently on a prednisone 40 mg. Hemoglobin 7.8. 11/17/2022 patient CHF and fluid overload improving, his oxygen saturation is acceptable and wants only with minimal crepitation mainly on the right side however he still have 2+ leg edema. However patient developed more alkalosis therefore Lasix drip was stopped and started on torsemide while the dose for Zaroxolyn was lowered to 2.5 mg. Creatinine is stable at 2.0 compared to 1.4 on admission. However patient become more confused today most likely secondary to metabolic encephalopathy and toxic encephalopathy. No recent fall. Patient fell about 3 days ago at that time CT of the brain was negative. Workup showing ammonia level is high at 255 and lactulose is added. We will continue neuro check and consider repeat CT of the brain condition worsens Pressure applied with sponge gel to bleeding superficial ulcer on the right forearm. 11/18/2022 Patient still confused and sleepy this morning from yesterday he got worse significantly. There is no new symptoms, he slipped with the And tachycardic. He had low-grade temperature of 99.8. Leukocytosis worsened 10.5 up to 17,000. Chest x-ray and urinalysis were repeated they were negative for acute process. Risks of flaps looks stable. Creatinine 1.9 which is a stable but higher than baseline because he was on Lasix drip. The sixth rib. Now, torsemide is only once daily. Also patient started on normal saline 75 mL/h Patient continued on prednisone 40 mg once a Eliquis area We will send blood culture and check liver ultrasound as liver enzymes and bilirubin only mildly elevated although this is not very new. Plan discussed with staff and bedside nurse more than once. Objective - Vital Signs Vital signs: Vital Signs Temp 99.7 F H 11/18/22 08:05 Pulse 108 H 06/25/23 11:27 Resp 16 11/18/22 08:05 BP 118/76 11/18/22 08:05 Pulse Ox 94 L 11/18/22 08:37 FiO2 28 11/17/22 08:36 Intake & Output 11/17/22 11/18/22 11/18/22 18:59 06:59 18:59 Intake Total 354 540 Output Total 2049 2640 450 Balance -1696 -2100 -450 Weight 83.5 kg Intake: Oral 354 540 Output: Urine 2049 264 450 Straight 450 Uretheral (Ruiz) 450 Other: Voiding Method Urinal Urinal Indwelling Catheter # Bowel Movements 1 - Exam GENERAL: The patient is alert and oriented x3, not in any acute distress. Well developed, well nourished. HEENT: Pupils are round and equally reacting to light. EOMI. No scleral icterus. No conjunctival pallor. Normocephalic, atraumatic. No pharyngeal erythema. No thyromegaly. CARDIOVASCULAR: S1 and S2 present. No murmurs, rubs, or gallops. -PULMONARY: Chest is clear to auscultation, no wheezing , bilateral basal crackles. ABDOMEN: Soft, nontender, nondistended, normoactive bowel sounds. No palpable organomegaly. MUSCULOSKELETAL: No joint swelling or deformity. -EXTREMITIES: No cyanosis, clubbing, patient has bilateral pitting like edema. NEUROLOGICAL: Gross neurological examination did not reveal any focal deficits. SKIN: No rashes. no petechiae. - Labs CBC & Chem 7: 11/18/22 07:12 11/18/22 07:12 Labs: Abnormal Lab Results - Last 24 Hours (Table) 11/17/22 11/17/22 11/17/22 Range/Units 15:47 16:49 17:12 WBC (3.8-10.6) k/uL RBC (4.30-5.90) m/uL Hgb (13.0-17.5) gm/dL Hct (39.0-53.0) % MCV (80.0-100.0) fL MCH (25.0-35.0) pg RDW (11.5-15.5) % Plt Count (150-450) k/uL Neutrophils # (Manual) (1.3-7.7) k/uL Monocytes # (Manual) (0-1.0) k/uL Macrocytosis PT (9.0-12.0) sec INR (<1.2) ABG pH (7.35-7.45) ABG pCO2 (35-45) mmHg ABG pO2 (83-108) mmHg ABG HCO3 (21-25) mmol/L ABG Total CO2 (19-24) mmol/L ABG O2 Saturation (94-97) % VBG pH (7.31-7.41) VBG HCO3 (24-28) mmol/L Sodium 135 L (137-145) mmol/L Potassium (3.5-5.1) mmol/L Chloride 86 L (98-107) mmol/L Carbon Dioxide 41 H* (22-30) mmol/L BUN 69 H (9-20) mg/dL Creatinine 2.05 H (0.66-1.25) mg/dL Glucose 221 H (74-99) mg/dL POC Glucose (mg/dL) 245 H 244 H (70-110) mg/dL Total Bilirubin (0.2-1.3) mg/dL AST (17-59) U/L Ammonia (<30) umol/L Albumin (3.5-5.0) g/dL Vitamin B12 (200.0-944.0) pg/mL 11/17/22 11/17/22 11/17/22 Range/Units 17:12 17:12 17:26 WBC (3.8-10.6) k/uL RBC (4.30-5.90) m/uL Hgb (13.0-17.5) gm/dL Hct (39.0-53.0) % MCV (80.0-100.0) fL MCH (25.0-35.0) pg RDW (11.5-15.5) % Plt Count (150-450) k/uL Neutrophils # (Manual) (1.3-7.7) k/uL Monocytes # (Manual) (0-1.0) k/uL Macrocytosis PT (9.0-12.0) sec INR (<1.2) ABG pH 7.53 H (7.35-7.45) ABG pCO2 50 H (35-45) mmHg ABG pO2 (83-108) mmHg ABG HCO3 42 H* (21-25) mmol/L ABG Total CO2 43 H (19-24) mmol/L ABG O2 Saturation 97.7 H (94-97) % VBG pH (7.31-7.41) VBG HCO3 (24-28) mmol/L Sodium (137-145) mmol/L Potassium (3.5-5.1) mmol/L Chloride (98-107) mmol/L Carbon Dioxide (22-30) mmol/L BUN (9-20) mg/dL Creatinine (0.66-1.25) mg/dL Glucose (74-99) mg/dL POC Glucose (mg/dL) (70-110) mg/dL Total Bilirubin (0.2-1.3) mg/dL AST (17-59) U/L Ammonia 255 H (<30) umol/L Albumin (3.5-5.0) g/dL Vitamin B12 >3600.0 H (200.0-944.0) pg/mL 11/18/22 11/18/22 11/18/22 Range/Units 06:49 07:12 07:12 WBC (3.8-10.6) k/uL RBC (4.30-5.90) m/uL Hgb (13.0-17.5) gm/dL Hct (39.0-53.0) % MCV (80.0-100.0) fL MCH (25.0-35.0) pg RDW (11.5-15.5) % Plt Count (150-450) k/uL Neutrophils # (Manual) (1.3-7.7) k/uL Monocytes # (Manual) (0-1.0) k/uL Macrocytosis PT (9.0-12.0) sec INR (<1.2) ABG pH (7.35-7.45) ABG pCO2 (35-45) mmHg ABG pO2 (83-108) mmHg ABG HCO3 (21-25) mmol/L ABG Total CO2 (19-24) mmol/L ABG O2 Saturation (94-97) % VBG pH 7.60 H* (7.31-7.41) VBG HCO3 36 H (24-28) mmol/L Sodium 135 L (137-145) mmol/L Potassium 3.4 L (3.5-5.1) mmol/L Chloride 93 L (98-107) mmol/L Carbon Dioxide 36 H (22-30) mmol/L BUN 70 H (9-20) mg/dL Creatinine 1.91 H (0.66-1.25) mg/dL Glucose 156 H (74-99) mg/dL POC Glucose (mg/dL) 184 H (70-110) mg/dL Total Bilirubin (0.2-1.3) mg/dL AST (17-59) U/L Ammonia (<30) umol/L Albumin (3.5-5.0) g/dL Vitamin B12 (200.0-944.0) pg/mL 11/18/22 11/18/22 11/18/22 Range/Units 07:12 07:12 07:12 WBC 17.4 H (3.8-10.6) k/uL RBC 2.05 L (4.30-5.90) m/uL Hgb 7.8 L (13.0-17.5) gm/dL Hct 23.4 L (39.0-53.0) % MCV 114.3 H (80.0-100.0) fL MCH 38.0 H (25.0-35.0) pg RDW 20.9 H (11.5-15.5) % Plt Count 82 L D (150-450) k/uL Neutrophils # (Manual) 12.88 H (1.3-7.7) k/uL Monocytes # (Manual) 2.26 H (0-1.0) k/uL Macrocytosis Marked A PT 16.4 H (9.0-12.0) sec INR 1.6 H (<1.2) ABG pH (7.35-7.45) ABG pCO2 (35-45) mmHg ABG pO2 (83-108) mmHg ABG HCO3 (21-25) mmol/L ABG Total CO2 (19-24) mmol/L ABG O2 Saturation (94-97) % VBG pH (7.31-7.41) VBG HCO3 (24-28) mmol/L Sodium 136 L (137-145) mmol/L Potassium 3.4 L (3.5-5.1) mmol/L Chloride 94 L (98-107) mmol/L Carbon Dioxide 34 H (22-30) mmol/L BUN 69 H (9-20) mg/dL Creatinine 1.93 H (0.66-1.25) mg/dL Glucose 157 H (74-99) mg/dL POC Glucose (mg/dL) (70-110) mg/dL Total Bilirubin 2.9 H (0.2-1.3) mg/dL AST 73 H (17-59) U/L Ammonia (<30) umol/L Albumin 3.1 L (3.5-5.0) g/dL Vitamin B12 (200.0-944.0) pg/mL 11/18/22 11/18/22 Range/Units 11:37 11:46 WBC (3.8-10.6) k/uL RBC (4.30-5.90) m/uL Hgb (13.0-17.5) gm/dL Hct (39.0-53.0) % MCV (80.0-100.0) fL MCH (25.0-35.0) pg RDW (11.5-15.5) % Plt Count (150-450) k/uL Neutrophils # (Manual) (1.3-7.7) k/uL Monocytes # (Manual) (0-1.0) k/uL Macrocytosis PT (9.0-12.0) sec INR (<1.2) ABG pH 7.53 H (7.35-7.45) ABG pCO2 (35-45) mmHg ABG pO2 44 L* (83-108) mmHg ABG HCO3 33 H (21-25) mmol/L ABG Total CO2 34 H (19-24) mmol/L ABG O2 Saturation 78.1 L (94-97) % VBG pH (7.31-7.41) VBG HCO3 (24-28) mmol/L Sodium (137-145) mmol/L Potassium (3.5-5.1) mmol/L Chloride (98-107) mmol/L Carbon Dioxide (22-30) mmol/L BUN (9-20) mg/dL Creatinine (0.66-1.25) mg/dL Glucose (74-99) mg/dL POC Glucose (mg/dL) 206 H (70-110) mg/dL Total Bilirubin (0.2-1.3) mg/dL AST (17-59) U/L Ammonia (<30) umol/L Albumin (3.5-5.0) g/dL Vitamin B12 (200.0-944.0) pg/mL Assessment and Plan Assessment: Altered mental status most likely metabolic/toxic encephalopathy. Recent CT of the brain is negative Acute diastolic CHF, currently patient got more contraction Acute kidney injury on chronic kidney disease stage III Acute metabolic alkalosis, possibly exacerbated by contraction alkalosis. moderate to severe mitral regurgitation Severe pulmonary hypertension Mild COPD exacerbation Plan: Discontinue Lasix drip. Patient currently on torsemide on small dose of Zaroxolyn, smaller dose Continue with normal saline 75 mL/h continue with the prednisone 40 mg [employer]ker in of the case. Pulmonary team on the case and currently on a prednisone 40 mg [facility] Companion Signed off the case start lactulose for high ammonia Monitor her mentation Labs and medication were reviewed.. Continue same treatment. Continue with symptomatic treatment. Resume home medication. Monitor labs and vitals. DVT and GI prophylaxis. Further recommendations as per clinical course of the patient DVT prophylaxis: Eliquis GI prophylaxis: Protonix PT/OT: Pending Prognosis is guarded
--- NOTE | 2022-11-18 15:34 | US ---
EXAMINATION TYPE: US liver DATE OF EXAM: 11/18/2022 COMPARISON: NONE CLINICAL INDICATION: Male, 82 years old with history of high liver enz and low fever; TECHNIQUE: Multiple sonographic images of the right upper quadrant are obtained. FINDINGS: EXAM MEASUREMENTS: Liver Length: 16.1 cm Gallbladder Wall: 0.3 cm CBD: 0.4 cm Right Kidney: 11.5 x 5.2 x 5.2 cm [employer] NOTES:Technically difficult, patient unable to cooperate for exam. Pancreas: not well visualized, mostly obscured by bowel gas. Liver: nodular countour. Gallbladder: No stones seen Evidence for sonographic Valerio's sign: No CBD: wnl Right Kidney: No hydronephrosis or masses seen IMPRESSION: Nodular hepatic contour may reflect underlying cirrhotic liver disease.
--- NOTE | 2022-11-18 15:37 | P.PN ---
Subjective Progress Note Date: 11/18/22 Follow-up for acute kidney injury. Urine output of 4690 ml"s in the last 24 hours. Family at bedside. Edema improving, currently on 2 L oxygen. Encephalopathy. Objective - Vital Signs Vital signs: Vital Signs Temp 99.4 F 11/18/22 11:20 Pulse 108 H 11/18/22 11:27 Resp 16 11/18/22 14:40 BP 126/65 11/18/22 11:20 Pulse Ox 93 L 11/18/22 11:20 FiO2 28 11/17/22 08:36 Intake & Output 11/17/22 11/18/22 11/18/22 18:59 06:59 18:59 Intake Total 354 540 Output Total 2049 2640 850 Balance -478 2099 -814 Weight 83.5 kg Intake: Oral 354 540 Output: Urine 2049 264 850 Straight 450 Uretheral (Ruiz) 450 Other: Voiding Method Urinal Urinal Indwelling Catheter # Bowel Movements 1 - Exam No acute distress S1-S2 heard Decreased breath sounds Abdomen soft Edema - Labs CBC & Chem 7: 11/18/22 07:12 11/18/22 07:12 Labs: Abnormal Lab Results - Last 24 Hours (Table) 11/17/22 11/17/22 11/17/22 Range/Units 15:47 16:49 17:12 WBC (3.8-10.6) k/uL RBC (4.30-5.90) m/uL Hgb (13.0-17.5) gm/dL Hct (39.0-53.0) % MCV (80.0-100.0) fL MCH (25.0-35.0) pg RDW (11.5-15.5) % Plt Count (150-450) k/uL Neutrophils # (Manual) (1.3-7.7) k/uL Monocytes # (Manual) (0-1.0) k/uL Macrocytosis PT (9.0-12.0) sec INR (<1.2) ABG pH (7.35-7.45) ABG pCO2 (35-45) mmHg ABG pO2 (83-108) mmHg ABG HCO3 (21-25) mmol/L ABG Total CO2 (19-24) mmol/L ABG O2 Saturation (94-97) % VBG pH (7.31-7.41) VBG HCO3 (24-28) mmol/L Sodium 135 L (137-145) mmol/L Potassium (3.5-5.1) mmol/L Chloride 86 L (98-107) mmol/L Carbon Dioxide 41 H* (22-30) mmol/L BUN 69 H (9-20) mg/dL Creatinine 2.05 H (0.66-1.25) mg/dL Glucose 221 H (74-99) mg/dL POC Glucose (mg/dL) 245 H 244 H (70-110) mg/dL Total Bilirubin (0.2-1.3) mg/dL AST (17-59) U/L Ammonia (<30) umol/L Albumin (3.5-5.0) g/dL Vitamin B12 (200.0-944.0) pg/mL 11/17/22 11/17/22 11/17/22 Range/Units 17:12 17:12 17:26 WBC (3.8-10.6) k/uL RBC (4.30-5.90) m/uL Hgb (13.0-17.5) gm/dL Hct (39.0-53.0) % MCV (80.0-100.0) fL MCH (25.0-35.0) pg RDW (11.5-15.5) % Plt Count (150-450) k/uL Neutrophils # (Manual) (1.3-7.7) k/uL Monocytes # (Manual) (0-1.0) k/uL Macrocytosis PT (9.0-12.0) sec INR (<1.2) ABG pH 7.53 H (7.35-7.45) ABG pCO2 50 H (35-45) mmHg ABG pO2 (83-108) mmHg ABG HCO3 42 H* (21-25) mmol/L ABG Total CO2 43 H (19-24) mmol/L ABG O2 Saturation 97.7 H (94-97) % VBG pH (7.31-7.41) VBG HCO3 (24-28) mmol/L Sodium (137-145) mmol/L Potassium (3.5-5.1) mmol/L Chloride (98-107) mmol/L Carbon Dioxide (22-30) mmol/L BUN (9-20) mg/dL Creatinine (0.66-1.25) mg/dL Glucose (74-99) mg/dL POC Glucose (mg/dL) (70-110) mg/dL Total Bilirubin (0.2-1.3) mg/dL AST (17-59) U/L Ammonia 255 H (<30) umol/L Albumin (3.5-5.0) g/dL Vitamin B12 >3600.0 H (200.0-944.0) pg/mL 11/18/22 11/18/22 11/18/22 Range/Units 06:49 07:12 07:12 WBC (3.8-10.6) k/uL RBC (4.30-5.90) m/uL Hgb (13.0-17.5) gm/dL Hct (39.0-53.0) % MCV (80.0-100.0) fL MCH (25.0-35.0) pg RDW (11.5-15.5) % Plt Count (150-450) k/uL Neutrophils # (Manual) (1.3-7.7) k/uL Monocytes # (Manual) (0-1.0) k/uL Macrocytosis PT (9.0-12.0) sec INR (<1.2) ABG pH (7.35-7.45) ABG pCO2 (35-45) mmHg ABG pO2 (83-108) mmHg ABG HCO3 (21-25) mmol/L ABG Total CO2 (19-24) mmol/L ABG O2 Saturation (94-97) % VBG pH 7.60 H* (7.31-7.41) VBG HCO3 36 H (24-28) mmol/L Sodium 135 L (137-145) mmol/L Potassium 3.4 L (3.5-5.1) mmol/L Chloride 93 L (98-107) mmol/L Carbon Dioxide 36 H (22-30) mmol/L BUN 70 H (9-20) mg/dL Creatinine 1.91 H (0.66-1.25) mg/dL Glucose 156 H (74-99) mg/dL POC Glucose (mg/dL) 184 H (70-110) mg/dL Total Bilirubin (0.2-1.3) mg/dL AST (17-59) U/L Ammonia (<30) umol/L Albumin (3.5-5.0) g/dL Vitamin B12 (200.0-944.0) pg/mL 11/18/22 11/18/22 11/18/22 Range/Units 07:12 07:12 07:12 WBC 17.4 H (3.8-10.6) k/uL RBC 2.05 L (4.30-5.90) m/uL Hgb 7.8 L (13.0-17.5) gm/dL Hct 23.4 L (39.0-53.0) % MCV 114.3 H (80.0-100.0) fL MCH 38.0 H (25.0-35.0) pg RDW 20.9 H (11.5-15.5) % Plt Count 82 L D (150-450) k/uL Neutrophils # (Manual) 12.88 H (1.3-7.7) k/uL Monocytes # (Manual) 2.26 H (0-1.0) k/uL Macrocytosis Marked A PT 16.4 H (9.0-12.0) sec INR 1.6 H (<1.2) ABG pH (7.35-7.45) ABG pCO2 (35-45) mmHg ABG pO2 (83-108) mmHg ABG HCO3 (21-25) mmol/L ABG Total CO2 (19-24) mmol/L ABG O2 Saturation (94-97) % VBG pH (7.31-7.41) VBG HCO3 (24-28) mmol/L Sodium 136 L (137-145) mmol/L Potassium 3.4 L (3.5-5.1) mmol/L Chloride 94 L (98-107) mmol/L Carbon Dioxide 34 H (22-30) mmol/L BUN 69 H (9-20) mg/dL Creatinine 1.93 H (0.66-1.25) mg/dL Glucose 157 H (74-99) mg/dL POC Glucose (mg/dL) (70-110) mg/dL Total Bilirubin 2.9 H (0.2-1.3) mg/dL AST 73 H (17-59) U/L Ammonia (<30) umol/L Albumin 3.1 L (3.5-5.0) g/dL Vitamin B12 (200.0-944.0) pg/mL 11/18/22 11/18/22 Range/Units 11:37 11:46 WBC (3.8-10.6) k/uL RBC (4.30-5.90) m/uL Hgb (13.0-17.5) gm/dL Hct (39.0-53.0) % MCV (80.0-100.0) fL MCH (25.0-35.0) pg RDW (11.5-15.5) % Plt Count (150-450) k/uL Neutrophils # (Manual) (1.3-7.7) k/uL Monocytes # (Manual) (0-1.0) k/uL Macrocytosis PT (9.0-12.0) sec INR (<1.2) ABG pH 7.53 H (7.35-7.45) ABG pCO2 (35-45) mmHg ABG pO2 44 L* (83-108) mmHg ABG HCO3 33 H (21-25) mmol/L ABG Total CO2 34 H (19-24) mmol/L ABG O2 Saturation 78.1 L (94-97) % VBG pH (7.31-7.41) VBG HCO3 (24-28) mmol/L Sodium (137-145) mmol/L Potassium (3.5-5.1) mmol/L Chloride (98-107) mmol/L Carbon Dioxide (22-30) mmol/L BUN (9-20) mg/dL Creatinine (0.66-1.25) mg/dL Glucose (74-99) mg/dL POC Glucose (mg/dL) 206 H (70-110) mg/dL Total Bilirubin (0.2-1.3) mg/dL AST (17-59) U/L Ammonia (<30) umol/L Albumin (3.5-5.0) g/dL Vitamin B12 (200.0-944.0) pg/mL Assessment and Plan Assessment: #1 acute kidney injury secondary to CRS type I -Baseline creatinine 1.2-1.4 MG per DL -Urine analysis [place] #2 CK D stage IIIa secondary to nephrosclerosis #3 CHF with diastolic dysfunction #4 volume overload with lower extremity edema #5 metabolic alkalosis secondary to diuretic use Plan: #1 renal function improving.. #2 diuretics discontinued for severe alkalosis. Agree with IV fluids. #3 avoid nephrotoxic agents and hypotensive episodes. #4 encephalopathy management per primary team
[2022-11-18] MEDS: POTASSIUM CHLORIDE 10 MEQ in WATER FOR INJECTION 1 100ML.BAG IVPB SCH ×3 (15:59→18:45)
[2022-11-18 16:55] LABS: Glucose,Whole Blood 238 mg/dL (70-110)
[2022-11-18] MEDS ORDERED: GELATIN SPONGE,ABSORB (LARGE) 1 EACH SPONGE TOPICAL STA (17:34)
[2022-11-18 19:50] LABS: Glucose,Whole Blood 197 mg/dL (70-110)
[2022-11-18] MEDS: LATANOPROST 0.005% OPHTH DROPS 2.5 ML BTL BOTH EYES SCH (20:05)
[2022-11-18] MEDS: DORZOLAMIDE-TIMOLOL 2.23%/0.68 10ML BTL BOTH EYES SCH (20:05)
[2022-11-19] MEDS: LACTULOSE 200 GM/300 ML (FROM 1/2 GAL JUG) RECTAL SCH ×4 (04:15→23:01)
[2022-11-19] MEDS: PANTOPRAZOLE 40 MG TABLET PO SCH (05:47)
[2022-11-19 05:50] LABS: Glucose,Whole Blood 193 mg/dL (70-110)
[2022-11-19] MEDS: INSULIN ASPART (NovoLOG) 100 UNIT/ML VIAL SQ SCH ×4 (05:52→21:37)
[2022-11-19] MEDS: BUDESONIDE 0.5 MG/2 ML NEBU INHALATION SCH ×2 (08:23→21:44)
[2022-11-19] MEDS: IPRATROPIUM-ALBUTEROL 3 ML NEB INHALATION SCH ×3 (08:24→21:43)
[2022-11-19] MEDS: FERROUS SULFATE 325 MG TAB PO SCH (08:55)
[2022-11-19] MEDS: MULTIVITAMINS, THERA 1 EACH TAB PO SCH (08:55)
[2022-11-19] MEDS: ATORVASTATIN 40 MG TAB PO SCH (08:55)
[2022-11-19] MEDS: APIXABAN 2.5 MG TABLET PO SCH ×2 (08:55→21:37)
[2022-11-19] MEDS: predniSONE 20 MG TAB PO SCH (08:56)
[2022-11-19] MEDS: POTASSIUM CHLORIDE ER 20 MEQ TAB.ER PO SCH (08:56)
[2022-11-19] MEDS: TORSEMIDE 20 MG TAB PO SCH (08:56)
[2022-11-19] MEDS: THIAMINE 100 MG/ML 2 ML VIAL IVP SCH (09:24)
--- NOTE | 2022-11-19 10:47 | P.CONS ---
History of Present Illness - Reason for Consult Consult date: 11/19/22 Liver cirrhosis Requesting physician: Jackie Palacio - Chief Complaint Shortness of breath - History of Present Illness This is a 82-year-old male who presented to the emergency department 11 days ago with complaints of shortness of breath and lower extremity swelling. Patient was admitted with acute on chronic congestive heart failure with acute dyspnea, and severe pulmonary hypertension. He has a past medical history including congestive heart failure, chronic lower extremity edema, chronic stage III kidney disease, diabetes mellitus2, obstructive sleep apnea with CPAP, previous history of CVA, skin cancer, chronic hypoxic respiratory failure, chronic atrial fibrillation, COPD and myodysplasia. His who is at the bedside states that the patient became significantly confused about 2-3 days ago. She states at that time he was started on a new oral medication. He was noted to have a significantly elevated ammonia level at 255, elevated LFTs and underwent a liver ultrasound showing cirrhosis of the liver. Gastroenterology was consulted for cirrhosis of the liver. Patient is currently confused, lethargic, and unable to obtain history from patient. History obtained from patient's and chart. She states he has no previous history of cirrhosis of the liver, no history of hepatic encephalopathy. She does state that he was a heavy drinker daily for about 40 years. She states that he quit drinking about 11 or 12 years ago. Current labs WBC 17.4 hemoglobin 7.8 hematocrit 23.4 platelet count 82,000 INR 1.6 sodium 136 potassium 3.4 BUN 69 creatinine 1.9 total bilirubin 2.9 AST 73 ALT 44 alkaline phosphatase 68 ammonia level XLVIII Review of Systems ROS unobtainable: due to mental status Past Medical History Past Medical History: Cancer, Heart Failure, CVA/TIA, Diabetes Mellitus, Myocardial Infarction ([place]), Osteoarthritis (OA), Prostate Disorder, Sleep Apne a/CPAP/BIPAP Additional Past Medical History / Comment(s): 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 COLON POLYPS, SKIN CANCER,uses cpap, new home o2 Last Myocardial Infarction Date:: 1999 History of Any Multi-Drug Resistant Organisms: None Reported Past Surgical History: Back Surgery, Joint Replacement, Orthopedic Surgery, T onsillectomy Additional Past Surgical History / Comment(s): ORIF LEFT SHOULDER. TOTAL LEFT KNEE. BILATERAL CATARACTS/IMPLANTS. Past Anesthesia/Blood Transfusion Reactions: No Reported Reaction Additional Past Anesthesia/Blood Transfusion Reaction / Comm: no problems with prior with platelet infusion Date of Last Stent Placement:: 1999 Past Psychological History: No Psychological Hx Reported Smoking Status: Former smoker Past Alcohol Use History: Occasional Additional Past Alcohol Use History / Comment(s): SMOKED FOR 30 YRS, QUIT IN 1987, 2PPD. Past Drug Use History: None Reported - Past Family History Sister(s) Family Medical History: Cancer Additional Family Medical History / Comment(s): UTERINE CANCER. Brother(s) Family Medical History: Cancer Additional Family Medical History / Comment(s): PROSTATE CANCER. Medications and Allergies Home Medications Medication Instructions Recorded Confirmed Type Cyanocobalamin [Vitamin B-12] 500 mcg PO DAILY 12/11/17 11/08/22 History Latanoprost Ophth [Xalatan 0.005%] 1 drop BOTH EYES HS 12/11/17 11/08/22 History Multivit-Min/FA/Lycopen/Lutein 1 tab PO DAILY 07/12/20 11/08/22 History [Centrum Silver Men Tablet] Tamsulosin [Flomax] 0.4 mg PO HS 07/12/20 11/08/22 History Ferrous Sulfate [Iron (65 MG 325 mg PO DAILY 07/25/22 11/08/22 History Elemental)] Pioglitazone [Actos] 30 mg PO DAILY 07/25/22 11/08/22 History lisinopriL 2.5 mg PO DAILY 07/25/22 11/08/22 History Apixaban [Eliquis] 2.5 mg PO BID #60 tab 10/01/22 11/08/22 Rx Atorvastatin [Lipitor] 40 mg PO DAILY #90 tablet 10/01/22 11/08/22 Rx Albuterol Inhaler [Ventolin Hfa 2 puff INHALATION RT-Q6H PRN 11/08/22 11/08/22 History Inhaler] Dorzolamide/Timolol/Pf 1 drop BOTH EYES HS 11/08/22 11/08/22 History [Dorzolamide 2%-Timolol 0.5%] Furosemide [Lasix] 40 mg PO BID@0900,1600 11/08/22 11/08/22 History Allergies Allergy/AdvReac Type Severity Reaction Status Date / Time No Known Allergies Allergy Verified 11/08/22 17:53 Physical Exam Vitals: Vital Signs Temp Pulse Pulse Resp BP Pulse Ox 11/19/22 08:42 90 11/19/22 08:24 90 98 11/19/22 08:00 97.2 F L 83 19 122/56 100 11/19/22 04:00 98.4 F 74 20 129/60 100 11/19/22 02:00 90 22 11/19/22 00:00 98.2 F 90 22 136/78 97 11/18/22 20:00 98.5 F 100 18 122/63 97 11/18/22 19:33 104 H 11/18/22 19:26 100 11/18/22 15:55 98.4 F 93 18 147/74 93 L 11/18/22 14:40 16 11/18/22 11:27 108 H 11/18/22 11:20 99.4 F 109 H 18 126/65 93 L Intake and Output 11/18/22 11/19/22 11/19/22 22:59 06:59 14:59 Output Total 350 575 Balance -350 -575 Output: Urine 350 575 Other: Voiding Method Indwelling Catheter Indwelling Catheter Indwelling Catheter General appearance: The patient is lethargic, sleepy, confused. HET: Head is normocephalic and atraumatic. Conjunctiva pink. Sclera anicteric. Neck: Supple. Trachea midline. Heart: S1-S2 present. Irregular. Lungs: Diminished. Abdomen: Soft, nontender, nondistended with bowel sounds. No guarding or rigidity. Skin: No rashes. No jaundice. Extremities: Normal skin color and turgor. Lower extremity nonpitting edema. Neurological: Patient is lethargic, confused.. Results CBC & Chem 7: 11/18/22 07:12 11/18/22 07:12 Labs: Abnormal Lab Results - Last 24 Hours (Table) 11/18/22 11/18/22 11/18/22 Range/Units 07:12 11:37 11:46 ABG pH 7.53 H (7.35-7.45) ABG pO2 44 L* (83-108) mmHg ABG HCO3 33 H (21-25) mmol/L ABG Total CO2 34 H (19-24) mmol/L ABG O2 Saturation 78.1 L (94-97) % POC Glucose (mg/dL) 206 H (70-110) mg/dL Ammonia (<30) umol/L Procalcitonin 0.17 H (0.02-0.09) ng/mL 11/18/22 11/18/22 11/19/22 Range/Units 16:53 19:47 05:46 ABG pH (7.35-7.45) ABG pO2 (83-108) mmHg ABG HCO3 (21-25) mmol/L ABG Total CO2 (19-24) mmol/L ABG O2 Saturation (94-97) % POC Glucose (mg/dL) 238 H 197 H 193 H (70-110) mg/dL Ammonia (<30) umol/L Procalcitonin (0.02-0.09) ng/mL 11/19/22 Range/Units 07:49 ABG pH (7.35-7.45) ABG pO2 (83-108) mmHg ABG HCO3 (21-25) mmol/L ABG Total CO2 (19-24) mmol/L ABG O2 Saturation (94-97) % POC Glucose (mg/dL) (70-110) mg/dL Ammonia 48 H (<30) umol/L Procalcitonin (0.02-0.09) ng/mL Assessment and Plan (1) Liver cirrhosis Narrative/Plan: 82-year-old male who presented with shortness of breath with acute on chronic congestive heart failure with history of multiple comorbidities who recently became confused, with altered mental status changes. He underwent a CT of the brain that showed no acute findings. He did have some mild elevation in his bilirubin and AST with history of alcohol abuse. Ammonia level was drawn and came back at 255. He was started on lactulose 200 mg every 6 hours per rectum with improvement in his ammonia level to 48 today. No prior history of cirrhosis of the liver hepatic encephalopathy however reports long-standing history of alcohol dependency of 40 years. Ultrasound of the liver does report nodular hepatic contour which may reflect underlying cirrhotic liver disease. Patient likely has cirrhosis of the liver from many years of alcohol abuse, with hepatic encephalopathy however need to consider other possible etiologies. Will get AFP, hepatitis panel, alpha-1 antitrypsin, DAVID. Mentation slowly improving. Will need to continue outpatient monitoring and continue with lactulose. Add Xifaxin. Current Visit: Yes Status: Acute Code(s): K74.60 - UNSPECIFIED CIRRHOSIS OF LIVER SNOMED Code(s): 70419826 (2) Hepatic encephalopathy Current Visit: Yes Status: Acute Code(s): K76.82 - HEPATIC ENCEPHALOPATHY SNOMED Code(s): 82404631 (3) Congestive heart failure Current Visit: Yes Status: Acute Code(s): I50.9 - HEART FAILURE, UNSPECIFIED SNOMED Code(s): 79782575 (4) Atrial fibrillation Current Visit: Yes Status: Acute Code(s): I48.91 - UNSPECIFIED ATRIAL FIBRILLATION SNOMED Code(s): 51816104 (5) Dyspnea Current Visit: Yes Status: Acute Code(s): R06.00 - DYSPNEA, UNSPECIFIED SNOMED Code(s): 774347968 (6) Chronic kidney disease Current Visit: Yes Status: Acute Code(s): N18.9 - CHRONIC KIDNEY DISEASE, UNSPECIFIED SNOMED Code(s): 709488819 (7) MDS (myelodysplastic syndrome) Current Visit: No Status: Chronic Priority: High Code(s): D46.9 - MYEL ODYSPLASTIC SYNDROME, UNSPECIFIED SNOMED Code(s): 934075489 Plan: 1. Continue symptomatic and supportive care 2. Continue lactulose 200 mg rectal every 6 hours, once patient becomes more alert we can transition to oral lactulose 30 g 3 times a day once alert 3. Add Xifaxin 550 mg BID 4. Daily CBC, CMP, ammonia. AFP, alpha 1 antitrypsin, DAVID, hepatitis panel, iron profile and ferritin ordered. 5. Continue alcohol abstinence and avoid hepatotoxic medications 6. Patient will need outpatient monitoring with gastroenterology 7. Continue medical management per primary team and multiple consultants Thank you for this consultation, we'll continue to follow. Dr. Devan Moody I agree with the dictator's note, documented as a scribe by Mary West.
[2022-11-19 11:44] LABS: Glucose,Whole Blood 171 mg/dL (70-110)
--- NOTE | 2022-11-19 12:05 | P.PN ---
Subjective This is a pleasant 82 years old male with multiple medical problems including history of heart failure presents with worsening dyspnea and leg swelling on and he was found with fluid overload secondary to diastolic CHF, echocardiogram from 09/2022 showing ejection fraction 55%. 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 He remains on Lasix drip 10 mg/h, creatinine 1.4, 1.6 and 2.1. Discuss case with nephrology team who recommended to keep the Lasix drip for now. Pulmonary team on the case for mild COPD exacerbation and currently on a prednisone 40 mg. Hemoglobin 7.8. 11/17/2022 patient CHF and fluid overload improving, his oxygen saturation is acceptable and wants only with minimal crepitation mainly on the right side however he still have 2+ leg edema. However patient developed more alkalosis therefore Lasix drip was stopped and started on torsemide while the dose for Zaroxolyn was lowered to 2.5 mg. Creatinine is stable at 2.0 compared to 1.4 on admission. However patient become more confused today most likely secondary to metabolic encephalopathy and toxic encephalopathy. No recent fall. Patient fell about 3 days ago at that time CT of the brain was negative. Workup showing ammonia level is high at 255 and lactulose is added. We will continue neuro check and consider repeat CT of the brain condition worsens Pressure applied with sponge gel to bleeding superficial ulcer on the right forearm. 11/18/2022 Patient still confused and sleepy this morning from yesterday he got worse significantly. There is no new symptoms, he slipped with the And tachycardic. He had low-grade temperature of 99.8. Leukocytosis worsened 10.5 up to 17,000. Chest x-ray and urinalysis were repeated they were negative for acute process. Risks of flaps looks stable. Creatinine 1.9 which is a stable but higher than baseline because he was on Lasix drip. The sixth rib. Now, torsemide is only once daily. Also patient started on normal saline 75 mL/h Patient continued on prednisone 40 mg once a Eliquis area We will send blood culture and check liver ultrasound as liver enzymes and bilirubin only mildly elevated although this is not very new. Plan discussed with staff and bedside nurse more than once. 11/19/2022 Patient slightly improving regarding his mentation, he still confused sleepy and does not respond to verbal or tactile stimuli but he opens his eyes from moving in bed to some degree which she was not doing its yesterday. His ammonia level is elevated yesterday to 55 and liver ultrasound showing possible liver cirrhosis which is most likely related to alcoholic liver cirrhosis. GI team. He is started on lactulose and ammonia level improved and 48. Also he remains on normal saline at 50 mL/h, alert from 75 mm/h for acute kidney injury and metabolic abnormalities including contraction alkalosis. Check labs tomorrow Objective - Vital Signs Vital signs: Vital Signs Temp 97.2 F L 11/19/22 08:00 Pulse 90 11/19/22 08:42 Resp 19 11/19/22 08:00 BP 122/56 11/19/22 08:00 Pulse Ox 98 11/19/22 08:24 FiO2 28 11/17/22 08:36 Intake & Output 11/18/22 11/19/22 11/19/22 18:59 06:59 18:59 Output Total 1200 575 Balance -1200 -575 Output: Urine 1200 575 Other: Voiding Method Indwelling Catheter Indwelling Catheter Indwelling Catheter # Bowel Movements 1 - Exam GENERAL: The patient is alert and oriented x3, not in any acute distress. Well developed, well nourished. HEENT: Pupils are round and equally reacting to light. EOMI. No scleral icterus. No conjunctival pallor. Normocephalic, atraumatic. No pharyngeal erythema. No thyromegaly. CARDIOVASCULAR: S1 and S2 present. No murmurs, rubs, or gallops. -PULMONARY: Chest is clear to auscultation, no wheezing , bilateral basal crackles. ABDOMEN: Soft, nontender, nondistended, normoactive bowel sounds. No palpable o rganomegaly. MUSCULOSKELETAL: No joint swelling or deformity. -EXTREMITIES: No cyanosis, clubbing, patient has bilateral pitting like edema. NEUROLOGICAL: Gross neurological examination did not reveal any focal deficits. SKIN: No rashes. no petechiae. - Labs CBC & Chem 7: 11/18/22 07:12 11/18/22 07:12 Labs: Abnormal Lab Results - Last 24 Hours (Table) 11/18/22 11/18/22 11/18/22 Range/Units 07:12 11:37 11:46 ABG pH 7.53 H (7.35-7.45) ABG pO2 44 L* (83-108) mmHg ABG HCO3 33 H (21-25) mmol/L ABG Total CO2 34 H (19-24) mmol/L ABG O2 Saturation 78.1 L (94-97) % POC Glucose (mg/dL) 206 H (70-110) mg/dL Ammonia (<30) umol/L Procalcitonin 0.17 H (0.02-0.09) ng/mL 11/18/22 11/18/22 11/19/22 Range/Units 16:53 19:47 05:46 ABG pH (7.35-7.45) ABG pO2 (83-108) mmHg ABG HCO3 (21-25) mmol/L ABG Total CO2 (19-24) mmol/L ABG O2 Saturation (94-97) % POC Glucose (mg/dL) 238 H 197 H 193 H (70-110) mg/dL Ammonia (<30) umol/L Procalcitonin (0.02-0.09) ng/mL 11/19/22 Range/Units 07:49 ABG pH (7.35-7.45) ABG pO2 (83-108) mmHg ABG HCO3 (21-25) mmol/L ABG Total CO2 (19-24) mmol/L ABG O2 Saturation (94-97) % POC Glucose (mg/dL) (70-110) mg/dL Ammonia 48 H (<30) umol/L Procalcitonin (0.02-0.09) ng/mL Assessment and Plan Assessment: 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 Recent CT of the brain is negative Acute diastolic CHF, currently patient got more contraction Acute kidney injury on chronic kidney disease stage III Acute metabolic alkalosis, possibly exacerbated by contraction alkalosis. moderate to severe mitral regurgitation Severe pulmonary hypertension Mild COPD exacerbation Plan: Continue with lactulose, follow-up ammonia. Appreciate GI input Discontinue Lasix drip. Patient currently on torsemide on small dose of Zaroxolyn, smaller dose Continue with normal saline 50 mL/h continue with the prednisone 40 mg Hand Tile Maker in of the case. Pulmonary team on the case and currently on a prednisone 40 mg Manager Paper Signed off the case start lactulose for high ammonia Monitor her mentation Labs and medication were reviewed.. Continue same treatment. Continue with symptomatic treatment. Resume home medication. Monitor labs and vitals. DVT and GI prophylaxis. Further recommendations as per clinical course of the patient DVT prophylaxis: Eliquis GI prophylaxis: Protonix PT/OT: Pending Prognosis is guarded
--- NOTE | 2022-11-19 14:00 | P.PN ---
Subjective Patient is seen for follow-up for acute kidney injury. Currently off of diuretics 24 hour urine output at 4.6 L Serum creatinine 1.9 on 11/18/2022. No labs available from today. Patient is sleepy. He is arousable but goes back to sleep. Started on IV fluids yesterday Objective - Vital Signs Vital signs: Vital Signs Temp 97.2 F L 11/19/22 08:00 Pulse 90 11/19/22 13:49 Resp 19 11/19/22 08:00 BP 122/56 11/19/22 08:00 Pulse Ox 98 11/19/22 08:24 FiO2 28 11/17/22 08:36 Intake & Output 11/18/22 11/19/22 11/19/22 18:59 06:59 18:59 Output Total 1200 575 Balance -1200 -575 Output: Urine 1200 575 Other: Voiding Method Indwelling Catheter Indwelling Catheter Indwelling Catheter # Bowel Movements 1 1 - Exam Patient is sleeping, lethargic, arousable but goes back to sleep Examination of the heart S1 and S2 Examination of the lungs bilateral breath sounds are heard Abdomen is soft nontender Examination lower extremities shows no significant edema - Labs CBC & Chem 7: 11/18/22 07:12 11/18/22 07:12 Labs: Abnormal Lab Results - Last 24 Hours (Table) 11/18/22 11/18/22 11/18/22 Range/Units 07:12 16:53 19:47 POC Glucose (mg/dL) 238 H 197 H (70-110) mg/dL Ammonia (<30) umol/L Procalcitonin 0.17 H (0.02-0.09) ng/mL 11/19/22 11/19/22 11/19/22 Range/Units 05:46 07:49 11:42 POC Glucose (mg/dL) 193 H 171 H (70-110) mg/dL Ammonia 48 H (<30) umol/L Procalcitonin (0.02-0.09) ng/mL Assessment and Plan Assessment: 1. Acute kidney injury cardiorenal, status post diuretics, restarted IV fluids. UA is benign 2. Chronic kidney disease NKF stage III a secondary to nephrosclerosis with baseline creatinine 1.2-1.3 mg/dL 3. Severe pulmonary hypertension with moderate to severe mitral regurgitation and chronic lower extremity edema 4. Acute on chronic CHF with preserved ejection fraction 5. Coronary artery disease with history of previous coronary stenting 6. Metabolic alkalosis secondary to diuresis, started on saline Plan: Check labs today Continue with IV fluids. May need to change to normal saline if sodium is lower. Repeat labs in a.m.
[2022-11-19] MEDS: SODIUM CHLORIDE 0.45% 1,000 ML IV SCH (14:08)
--- NOTE | 2022-11-19 14:44 | P.PN ---
Subjective Progress Note Date: 11/19/22 Principal diagnosis: Acute on chronic dyspnea and right-sided heart failure with cor pulmonale and hepatic encephalopathy. This is an 82-year-old the patient was hospitalized 2 days back because of shortness of breath, orthopnea, paroxysmal nocturnal dyspnea and significant edema in the lower extremity bilaterally. The patient is morbidly obese with a BMI of 40.4. The patient has obstructive sleep apnea. The patient also has chronic kidney disease, stage III, diabetes mellitus type 2, chronic into fibrillation and signs of chronic right-sided heart failure. The patient is also [id number] smoking history. He was not diagnosed having COPD in the past. The maternal Lasix on outpatient basis. Since his admission, the patient denies having any major improvement. Continues to have shortness of breath cough and congestion and extensive edema and his scrotum, abdomen and lower oximetry is bilaterally. Based on that, Pulmicort consultation was requested. The patient is on long-term and coagulation with Eliquis. The patient has no chest pain. No syncope. He is producing urine output and the patient has been negative fluid balance over the past 24 hours. Nevertheless, the balance of the fluid has not been enough to improve any of his symptoms. His chest x-ray at time of admission was consistent with CHF with bilateral pleural effusions and cardiac megaly and bibasilar pulmonary infiltrates. There is evidence of diffuse interstitial pattern. Blood work from today shows a GFR of 36, BUN is 29 with a creatinine of 1.7 and a sodium level is at 132. The discomfort at 6.8 with a hemoglobin of 8 and a platelet count of 57. Glucose at 127. Echocard iogram showed LV systolic function, borderline normal, dilated RV, severe pulmonary hypertension and moderate to severe mitral regurgitation and moderate degree of tricuspid regurgitation. The estimated the right-sided pressure was 64 mmHg. On today's evaluation of 11/13/2022, the patient is feeling better. The patient is less short of breath compared to yesterday and the patient has diabetes at least 3 L and the neck fluid balance is -3 L over the past 24 hours. He reports improvement of the abdominal swelling in the lower extremity edema. The patient remains on Lasix drip at 5 mg an hour and the patient is also Zaroxolyn. Nephrology has been consulted. Renal function remains stable. He is also on examination bronchodilators and steroids as the patient was told to have a component of COPD exacerbation also. CHF and interstitial edema and the findings are essentially stable. The patient is going 7.4 with a hemoglobin of 8.1. BUN is at 35 with a creatinine of 1.5 and a sodium level is at 133. Overall responses has been positive. Awaiting nephrology consultation. Cardiology has also been involved in the case as the patient has right-sided heart failure, chronic A. fib and mitral regurgitation. On 11/14/2022, patient is doing well. The patient continues to diurese ad equately. The patient remains on Lasix drip at 5 mg an hour and the patient is also Zaroxolyn 5 mg by mouth twice a day. Fluid balance is negative in the order of more than 3 L and the patient continues to lose weight. The patient is improved and he is less short of breath. The patient is currently on 2 L of O2 nasal cannula with a pulse ox of 99 200%. No chest pain. No shortness of breath. Lower extremity edema, abdominal wall edema and scrotal edema or improving. On today's blood work, the WBC count 11.9 with a hemoglobin of 7.5. BUN is 45 with a creatinine 0.9 and his sodium level is at 134. He remains on bronchodilators. Remains on IV steroids. The patient remained atrial fib rillation and he has chronic mitral regurgitation. 11/13/2022, the patient remains on Lasix drip and is currently on 10 mg an hour. Doing well. No respiratory difficulties. Is also on Zaroxolyn 5 mg by mouth on a daily basis. The BUN is at 53 with a creatinine of 1.6 which is improved compared to yesterday. Sodium level is at 135. The echoes at 7.7 with a hemoglobin of 7.8 and a platelet count of 55. Noted the patient has chronic normocytic. The platelet count remains unchanged. The overall fluid balance has been negative and the patient weight is currently down to 110 kg and he is in negative fluid balance of at least 3.4 L over the past 24 hours. 11/16/2022, condition is essentially stable and the patient remains on Lasix drip at 10 mg an hour and Zaroxolyn 5 mg by mouth daily. The patient's body weight is down to 104 kg yesterday and the patient has been another 3.5 L negative fluid balance since yesterday. The patient is stable. He is a 65 with a creatinine of 2.01. Sodium is at 134. Serum bicarb is at 39. The patient is showing marked improvement in his lower extremity edema. He is still complaining of some exertional dyspnea. He remains on oxygen at 2 L/m nasal cannula. The patient otherwise has no complaints. Remains on anticoagulation with Eliquis 2.5 mg twice a day. Rest of the home medications are unchanged and the patient is also on a prednisone burst taper starting with 40 mg by mouth daily. 11/17/2022, the patient remains on Lasix drip and Zaroxolyn. The patient's weight is down to 97 kg and the patient has lost another 4 L of fluid balance over the past 24 hours. The breathing is stable for now. He is still on 2 L of oxygen by nasal cannula. He has developed some metabolic alkalosis. There is essentially related to diuresis. Serum bicarbs of 44. BUN is at 74 with a creatinine 1.9. The hemoglobin is at 7.7. Remains on anticoagulation. Also completing a course of prednisone burst taper. On 11/18/2022, the patient's condition is decompensated. Overnight, the patient became aggressive, confused and agitated. He was given samples 25 mg at bedtime it was also given Haldol IV. This morning is more lethargic. He is aggressively diuresed with Lasix and Zaroxolyn. The patient is currently off Lasix. He was switched to oral Demadex and I discontinued Zaroxolyn. Note that the patient has become quite alkalotic. He received Diamox and the blood gas that was done today shows a pH of 7.3 with a pCO2 of 40. The pO2 was 44 on FiO2 of 28%. At the same time, the patient's serum bicarb was at 34 and this dropped from 41. Rest of the blood work shows a BUN of 69 and a creatinine of 1.9 and sodium levels of 136. Potassium levels at 3.4. WBC count is at 17.4 with a hemoglobin of 7.8 and a platelet count of 82. His serum ammonia level was found to be quite elevated at 255. The patient was started on lactulose enemas. CAT scan of the brain showed no acute abnormalities. A repeat chest x-ray was done today shows cardiomegaly with mild vascular congestion and overall picture is essentially improved. Reevaluated today on 11/19/22, patient, patient is sleeping, his is at bedside, apparently he was given some sedation earlier today for extreme agitation and confusion. Patient has been receiving Haldol. Patient remains on diuretics, remains on treatment for hyperammonemia level. Intermittently encephalopathic and agitated, although his ammonia level is down to 48 today. CBC is relatively normal except for hemoglobin of 7.8 WBC count of 17.4, INR is 1.6 Objective - Vital Signs Vital signs: Vital Signs Temp 97.4 F L 11/19/22 12:10 Pulse 90 11/19/22 13:49 Resp 20 11/19/22 12:10 BP 108/55 11/19/22 12:10 Pulse Ox 100 11/19/22 12:10 FiO2 28 11/17/22 08:36 Intake & Output 11/18/22 11/19/22 11/19/22 18:59 06:59 18:59 Output Total 1200 575 Balance -1200 -575 Output: Urine 1200 575 Other: Voiding Method Indwelling Catheter Indwelling Catheter Indwelling Catheter # Bowel Movements 1 1 - Exam GENERAL: 82-year-old white male in no distress. On 4 L nasal cannula O2 saturation 100% HEENT: Devora, EOMI, nonicteric, EOMI, nonicteric Chest: Symmetrical chest expansion Pulmonary: Diminished breath sounds at the bases no rhonchi no wheezes Abdomen:, Soft nontender no megaly no rebound no guarding MUSCULOSKELETAL: no deformities and no limitation in range of motion Extremities: No clubbing, bilateral pedal edema noted. NEUROLOGICAarousable, follows simple instructions, no gross deficit. Skin: No rashes - Labs CBC & Chem 7: 11/18/22 07:12 11/18/22 07:12 Labs: Abnormal Lab Results - Last 24 Hours (Table) 11/18/22 11/18/22 11/18/22 Range/Units 07:12 16:53 19:47 POC Glucose (mg/dL) 238 H 197 H (70-110) mg/dL Ammonia (<30) umol/L Procalcitonin 0.17 H (0.02-0.09) ng/mL 11/19/22 11/19/22 11/19/22 Range/Units 05:46 07:49 11:42 POC Glucose (mg/dL) 193 H 171 H (70-110) mg/dL Ammonia 48 H (<30) umol/L Procalcitonin (0.02-0.09) ng/mL Assessment and Plan Assessment: Impression: Acute hepatic encephalopathy, suspect liver cirrhosis secondary to remote alcohol abuse. Altered mental status secondary to above, acute metabolic toxic encephalopathy Acute diastolic congestive heart failure Acute on chronic kidney disease Acute metabolic alkalosis secondary to diuretics Moderate severe pulmonary hypertension Moderate severe mitral regurgitation History of mild COPD Chronic atrial fibrillation History of colonic polyps Type 2 diabetes with diabetic nephropathy History of CVA without any residual deficit Recommendation: Continue oxygen and titrate accordingly Recommended GI evaluation for his liver issues Continue lactulose Continue to monitor ammonia level Continue diuretics Continue to monitor renal status as well as I's and O's. Patient to use his own home unit/CPAP We'll continue to follow Time with Patient: Less than 30
[2022-11-19 14:59] LABS: African American GFR (CKD) 40 (>60 ml/min/1.73 sqM); Anion Gap 4 mmol/L; Blood Urea Nitrogen 76 mg/dL (9-20); Calcium 9.2 mg/dL (8.4-10.2); Carbon Dioxide 36 mmol/L (22-30); Chloride 101 mmol/L (98-107); Glucose 148 mg/dL (74-99); Non-African American GFR(CKD) 34 (>60 ml/min/1.73 sqM); Sodium 141 mmol/L (137-145)
[2022-11-19 15:02] LABS: Potassium 2.7 mmol/L (3.5-5.1)
[2022-11-19] MEDS: POTASSIUM CHLORIDE 10 MEQ in WATER FOR INJECTION 1 100ML.BAG IVPB SCH ×5 (15:11→22:56)
[2022-11-19 16:46] LABS: Glucose,Whole Blood 166 mg/dL (70-110)
[2022-11-19 19:41] LABS: Glucose,Whole Blood 160 mg/dL (70-110)
[2022-11-19] MEDS: TAMSULOSIN 0.4 MG CAP.ER.24H PO SCH (21:37)
[2022-11-19] MEDS: DORZOLAMIDE-TIMOLOL 2.23%/0.68 10ML BTL BOTH EYES SCH (21:37)
[2022-11-19] MEDS: LATANOPROST 0.005% OPHTH DROPS 2.5 ML BTL BOTH EYES SCH (21:38)
[2022-11-19] MEDS: RIFAXIMIN 550 MG TABLET PO SCH (22:09)
[2022-11-19 23:24] LABS: Hepatitis A Antibody IgM Nonreactive; Hepatitis B Core IgM Nonreactive; Hepatitis B Surface Antigen Nonreactive; Hepatitis C IgG Antibody Nonreactive
[2022-11-20] MEDS: POTASSIUM CHLORIDE 10 MEQ in WATER FOR INJECTION 1 100ML.BAG IVPB SCH ×7 (00:31→22:16)
[2022-11-20] MEDS: LACTULOSE 200 GM/300 ML (FROM 1/2 GAL JUG) RECTAL SCH ×2 (05:15→10:58)
[2022-11-20 06:19] LABS: Glucose,Whole Blood 188 mg/dL (70-110)
[2022-11-20] MEDS: PANTOPRAZOLE 40 MG TABLET PO SCH (06:27)
[2022-11-20] MEDS: INSULIN ASPART (NovoLOG) 100 UNIT/ML VIAL SQ SCH ×4 (06:27→21:00)
[2022-11-20 07:58] LABS: Anisocytosis Moderate; Basophils % (A) 0 %; Eosinophils # (A) 0.3 k/uL (0-0.7); Eosinophils % (A) 3 %; HCT 22.9 % (39.0-53.0); HGB 7.7 gm/dL (13.0-17.5); Hypochromasia Moderate; Lymphocytes # (A) 1.3 k/uL (1.0-4.8); Lymphocytes % (A) 12 %; MCH 39.4 pg (25.0-35.0); MCHC 33.4 g/dL (31.0-37.0); MCV 117.9 fL (80.0-100.0); Macrocytosis Marked; Mean Platelet Volume 11.7; Monocytes # (A) 0.5 k/uL (0-1.0); Monocytes % (A) 5 %; Neutrophils # (A) 8.4 k/uL (1.3-7.7); Neutrophils % (A) 79 %; RBC 1.94 m/uL (4.30-5.90); RDW 20.9 % (11.5-15.5); WBC 10.6 k/uL (3.8-10.6)
[2022-11-20 08:04] LABS: Platelet Count 72 k/uL (150-450)
[2022-11-20 08:14] LABS: ALT 57 U/L (4-49); AST 172 U/L (17-59); African American GFR (CKD) 44 (>60 ml/min/1.73 sqM); Albumin 3.3 g/dL (3.5-5.0); Alkaline Phosphatase 74 U/L (38-126); Anion Gap 5 mmol/L; Blood Urea Nitrogen 73 mg/dL (9-20); Calcium 9.4 mg/dL (8.4-10.2); Carbon Dioxide 34 mmol/L (22-30); Chloride 109 mmol/L (98-107); Glucose 164 mg/dL (74-99); Non-African American GFR(CKD) 38 (>60 ml/min/1.73 sqM); Sodium 148 mmol/L (137-145); Total Bilirubin 3.6 mg/dL (0.2-1.3); Total Protein 7.2 g/dL (6.3-8.2)
[2022-11-20] MEDS: IPRATROPIUM-ALBUTEROL 3 ML NEB INHALATION SCH ×3 (08:14→21:34)
[2022-11-20] MEDS: BUDESONIDE 0.5 MG/2 ML NEBU INHALATION SCH ×2 (08:14→21:34)
[2022-11-20 08:19] LABS: Potassium 2.7 mmol/L (3.5-5.1)
[2022-11-20] MEDS: MULTIVITAMINS, THERA 1 EACH TAB PO SCH (10:43)
[2022-11-20] MEDS: RIFAXIMIN 550 MG TABLET PO SCH ×2 (10:43→20:59)
[2022-11-20] MEDS: THIAMINE 100 MG/ML 2 ML VIAL IVP SCH (10:43)
[2022-11-20] MEDS: APIXABAN 2.5 MG TABLET PO SCH ×2 (10:44→20:59)
[2022-11-20] MEDS: FERROUS SULFATE 325 MG TAB PO SCH (10:44)
[2022-11-20] MEDS: predniSONE 20 MG TAB PO SCH (10:44)
[2022-11-20] MEDS: POTASSIUM CHLORIDE ER 20 MEQ TAB.ER PO SCH ×2 (10:44→11:51)
[2022-11-20] MEDS: ATORVASTATIN 40 MG TAB PO SCH (10:44)
[2022-11-20] MEDS: TORSEMIDE 20 MG TAB PO SCH (10:44)
[2022-11-20] MEDS: DEXTROSE 5% IN WATER 1,000 ML IV SCH (10:45)
[2022-11-20] MEDS: LACTULOSE 20 GM/30 ML CUP PO SCH ×3 (10:45→21:03)
[2022-11-20] MEDS ORDERED: POTASSIUM CHLORIDE ER 20 MEQ TAB.ER PO STA (11:20)
--- NOTE | 2022-11-20 11:23 | P.PN ---
Subjective Patient is seen for follow-up for acute kidney injury. Currently off of diuretics 24 hour urine output at 1.8 L Serum creatinine down to 1.6 Mentation is much improved. Patient is able to communicate. Sodium at 148, potassium 2.7 Objective - Vital Signs Vital signs: Vital Signs Temp 98.0 F 11/20/22 08:29 Pulse 109 H 11/20/22 08:29 Resp 16 11/20/22 08:29 BP 119/55 11/20/22 08:29 Pulse Ox 96 11/20/22 08:29 FiO2 28 11/17/22 08:36 Intake & Output 11/19/22 11/20/22 11/20/22 18:59 06:59 18:59 Intake Total 240 Output Total 1125 725 350 Balance -1125 -725 -110 Intake: Oral 240 Output: Urine 1125 725 350 Other: Voiding Method Indwelling Catheter Indwelling Catheter # Bowel Movements 1 - Exam Patient is awake. Sitting up in bed. Able to communicate. Mentation much improved. Examination of the heart S1 and S2 Examination of the lungs bilateral breath sounds are heard Abdomen is soft nontender Examination lower extremities shows no significant edema - Labs CBC & Chem 7: 11/20/22 07:42 11/20/22 07:42 Labs: Abnormal Lab Results - Last 24 Hours (Table) 11/19/22 11/19/22 11/19/22 Range/Units 11:42 14:20 16:43 RBC (4.30-5.90) m/uL Hgb (13.0-17.5) gm/dL Hct (39.0-53.0) % MCV (80.0-100.0) fL MCH (25.0-35.0) pg RDW (11.5-15.5) % Plt Count (150-450) k/uL Neutrophils # (1.3-7.7) k/uL Macrocytosis Sodium (137-145) mmol/L Potassium 2.7 L* (3.5-5.1) mmol/L Chloride (98-107) mmol/L Carbon Dioxide 36 H (22-30) mmol/L BUN 76 H (9-20) mg/dL Creatinine 1.80 H (0.66-1.25) mg/dL Glucose 148 H (74-99) mg/dL POC Glucose (mg/dL) 171 H 166 H (70-110) mg/dL Total Bilirubin (0.2-1.3) mg/dL AST (17-59) U/L ALT (4-49) U/L Albumin (3.5-5.0) g/dL 11/19/22 11/20/22 11/20/22 Range/Units 19:39 06:17 07:42 RBC 1.94 L (4.30-5.90) m/uL Hgb 7.7 L (13.0-17.5) gm/dL Hct 22.9 L (39.0-53.0) % MCV 117.9 H (80.0-100.0) fL MCH 39.4 H (25.0-35.0) pg RDW 20.9 H (11.5-15.5) % Plt Count 72 L (150-450) k/uL Neutrophils # 8.4 H (1.3-7.7) k/uL Macrocytosis Marked A Sodium (137-145) mmol/L Potassium (3.5-5.1) mmol/L Chloride (98-107) mmol/L Carbon Dioxide (22-30) mmol/L BUN (9-20) mg/dL Creatinine (0.66-1.25) mg/dL Glucose (74-99) mg/dL POC Glucose (mg/dL) 160 H 188 H (70-110) mg/dL Total Bilirubin (0.2-1.3) mg/dL AST (17-59) U/L ALT (4-49) U/L Albumin (3.5-5.0) g/dL 11/20/22 Range/Units 07:42 RBC (4.30-5.90) m/uL Hgb (13.0-17.5) gm/dL Hct (39.0-53.0) % MCV (80.0-100.0) fL MCH (25.0-35.0) pg RDW (11.5-15.5) % Plt Count (150-450) k/uL Neutrophils # (1.3-7.7) k/uL Macrocytosis Sodium 148 H (137-145) mmol/L Potassium 2.7 L* (3.5-5.1) mmol/L Chloride 109 H (98-107) mmol/L Carbon Dioxide 34 H (22-30) mmol/L BUN 73 H (9-20) mg/dL Creatinine 1.65 H (0.66-1.25) mg/dL Glucose 164 H (74-99) mg/dL POC Glucose (mg/dL) (70-110) mg/dL Total Bilirubin 3.6 H (0.2-1.3) mg/dL AST 172 H (17-59) U/L ALT 57 H (4-49) U/L Albumin 3.3 L (3.5-5.0) g/dL Assessment and Plan Assessment: 1. Acute kidney injury cardiorenal, status post diuretics, restarted IV fluids. UA is benign. Renal function improved 2. Chronic kidney disease NKF stage III a secondary to nephrosclerosis with baseline creatinine 1.2-1.3 mg/dL 3. Severe pulmonary hypertension with moderate to severe mitral regurgitation and chronic lower extremity edema 4. Acute on chronic CHF with preserved ejection fraction 5. Coronary artery disease with history of previous coronary stenting 6. Metabolic alkalosis secondary to diuresis, started on saline 7. Hypernatremia associated with free water deficit. Hold torsemide and switch IV fluids to D5W. Plan: Replace potassium Change IV fluids to D5W Repeat labs in a.m.
[2022-11-20 11:27] LABS: Alpha Fetoprotein, Tumor Mkr <3.00 ng/mL (0.00-7.90)
[2022-11-20 11:34] LABS: Glucose,Whole Blood 257 mg/dL (70-110)
--- NOTE | 2022-11-20 12:37 | P.PN ---
Subjective Progress Note Date: 11/20/22 Principal diagnosis: Hepatic encephalopathy This is a 82-year-old male who presented to the emergency department 11 days ago with complaints of shortness of breath and lower extremity swelling. Patient was admitted with acute on chronic congestive heart failure with acute dyspnea, and severe pulmonary hypertension. He has a past medical history including congestive heart failure, chronic lower extremity edema, chronic stage III kidney disease, diabetes mellitus2, obstructive sleep apnea with CPAP, previous history of CVA, skin cancer, chronic hypoxic respiratory failure, chronic atrial fibrillation, COPD and myodysplasia. His who is at the bedside states that the patient became significantly confused about 2-3 days ago. She states at that time he was started on a new oral medication. He was noted to have a significantly elevated ammonia level at 255, elevated LFTs and underwent a liver ultrasound showing cirrhosis of the liver. Gastroenterology was consulted for cirrhosis of the liver. Patient is currently confused, lethargic, and unable to obtain history from patient. History obtained from patient's and chart. She states he has no previous history of cirrhosis of the liver, no history of hepatic encephalopathy. She does state that he was a heavy drinker daily for about 40 years. She states that he quit drinking about 11 or 12 years ago. 11/20/2022 Patient is seen and examined today as a follow-up. He is more awake and alert. He is alert 1. He was able to eat a little breakfast this morning. HE has no complaints. He is still confused and a poor historian, and unable to give any details on past medical history. WBC 10.6 hemoglobin 7.7 platelet count 72,000 sodium 148 potassium 2.7 BUN 73 creatinine 1.65 total bilirubin 3.6 AST 172 ALT 57 alkaline phosphatase 74 ammonia 21 alpha 1 antitrypsin 148 AFP tumor marker less than 3.0, a hepatitis panel nonreactive Objective - Vital Signs Vital signs: Vital Signs Temp 98.0 F 11/20/22 08:29 Pulse 109 H 11/20/22 08:29 Resp 16 11/20/22 08:29 BP 119/55 11/20/22 08:29 Pulse Ox 96 11/20/22 08:29 FiO2 28 11/17/22 08:36 Intake & Output 11/19/22 11/20/22 11/20/22 18:59 06:59 18:59 Output Total 1125 725 Balance -1125 -727 Output: Urine 1125 725 Other: Voiding Method Indwelling Catheter Indwelling Catheter # Bowel Movements 1 - Exam General appearance: The patient is alert, oriented to self only, appears in no acute distress. HET: Head is normocephalic and atraumatic. Conjunctiva pink. Sclera anicteric. Neck: Supple without lymphadenopathy. Abdomen: Soft, obese, nontender, nondistended with bowel sounds. No guarding or rigidity. Extremities: Normal skin color and turgor. No pedal edema Skin: No rashes, no jaundice Neurological: Alert and oriented to self only. Still somewhat confused, unable to give any significant history. - Labs CBC & Chem 7: 11/20/22 07:42 11/20/22 07:42 Labs: Abnormal Lab Results - Last 24 Hours (Table) 11/19/22 11/19/22 11/19/22 Range/Units 11:42 14:20 16:43 RBC (4.30-5.90) m/uL Hgb (13.0-17.5) gm/dL Hct (39.0-53.0) % MCV (80.0-100.0) fL MCH (25.0-35.0) pg RDW (11.5-15.5) % Plt Count (150-450) k/uL Neutrophils # (1.3-7.7) k/uL Macrocytosis Sodium (137-145) mmol/L Potassium 2.7 L* (3.5-5.1) mmol/L Chloride (98-107) mmol/L Carbon Dioxide 36 H (22-30) mmol/L BUN 76 H (9-20) mg/dL Creatinine 1.80 H (0.66-1.25) mg/dL Glucose 148 H (74-99) mg/dL POC Glucose (mg/dL) 171 H 166 H (70-110) mg/dL Total Bilirubin (0.2-1.3) mg/dL AST (17-59) U/L ALT (4-49) U/L Albumin (3.5-5.0) g/dL 11/19/22 11/20/22 11/20/22 Range/Units 19:39 06:17 07:42 RBC 1.94 L (4.30-5.90) m/uL Hgb 7.7 L (13.0-17.5) gm/dL Hct 22.9 L (39.0-53.0) % MCV 117.9 H (80.0-100.0) fL MCH 39.4 H (25.0-35.0) pg RDW 20.9 H (11.5-15.5) % Plt Count 72 L (150-450) k/uL Neutrophils # 8.4 H (1.3-7.7) k/uL Macrocytosis Marked A Sodium (137-145) mmol/L Potassium (3.5-5.1) mmol/L Chloride (98-107) mmol/L Carbon Dioxide (22-30) mmol/L BUN (9-20) mg/dL Creatinine (0.66-1.25) mg/dL Glucose (74-99) mg/dL POC Glucose (mg/dL) 160 H 188 H (70-110) mg/dL Total Bilirubin (0.2-1.3) mg/dL AST (17-59) U/L ALT (4-49) U/L Albumin (3.5-5.0) g/dL 11/20/22 Range/Units 07:42 RBC (4.30-5.90) m/uL Hgb (13.0-17.5) gm/dL Hct (39.0-53.0) % MCV (80.0-100.0) fL MCH (25.0-35.0) pg RDW (11.5-15.5) % Plt Count (150-450) k/uL Neutrophils # (1.3-7.7) k/uL Macrocytosis Sodium 148 H (137-145) mmol/L Potassium 2.7 L* (3.5-5.1) mmol/L Chloride 109 H (98-107) mmol/L Carbon Dioxide 34 H (22-30) mmol/L BUN 73 H (9-20) mg/dL Creatinine 1.65 H (0.66-1.25) mg/dL Glucose 164 H (74-99) mg/dL POC Glucose (mg/dL) (70-110) mg/dL Total Bilirubin 3.6 H (0.2-1.3) mg/dL AST 172 H (17-59) U/L ALT 57 H (4-49) U/L Albumin 3.3 L (3.5-5.0) g/dL Assessment and Plan (1) Liver cirrhosis Narrative/Plan: 82-year-old male who presented with shortness of breath with acute on chronic congestive heart failure with history of multiple comorbidities who recently became confused, with altered mental status changes. He underwent a CT of the brain that showed no acute findings. He did have some mild elevation in his bilirubin and AST with history of alcohol abuse. Ammonia level was drawn and came back at 255. He was started on lactulose 200 mg every 6 hours per rectum with improvement in his ammonia level to 48 today. No prior history of cirrhosis of the liver hepatic encephalopathy however reports long-standing history of alcohol dependency of 40 years. Ultrasound of the liver does report nodular hepatic contour which may reflect underlying cirrhotic liver disease. Patient likely has cirrhosis of the liver from many years of alcohol abuse, with hepatic encephalopathy however need to consider other possible etiologies. Will get AFP, hepatitis panel, alpha-1 antitrypsin, DAVID. Mentation slowly improving. Will need to continue outpatient monitoring and continue with lactulose. Add Xifaxin. Liver serologies workup negative to date, as well as hepatitis panel nonreactive. 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 Current Visit: Yes Status: Acute Code(s): K74.60 - UNSPECIFIED CIRRHOSIS OF LIVER SNOMED Code(s): 13585584 (2) Hepatic encephalopathy Narrative/Plan: Continue lactulose, will transition physician to oral. Continue Xifaxan as ordered. Consider neurology consultation for further evaluation of altered mental status changes. Patient had prolonged symptoms of altered mental status despite improvement in ammonia levels. Current Visit: Yes Status: Acute Code(s): K76.82 - HEPATIC ENCEPHALOPATHY SNOMED Code(s): 54909353 (3) Congestive heart failure Current Visit: Yes Status: Acute Code(s): I50.9 - HEART FAILURE, UNSPECIFIED SNOMED Code(s): 35807519 (4) Atrial fibrillation Current Visit: Yes Status: Acute Code(s): I48.91 - UNSPECIFIED ATRIAL FIBRILLATION SNOMED Code(s): 32906887 (5) Dyspnea Current Visit: Yes Status: Acute Code(s): R06.00 - DYSPNEA, UNSPECIFIED SNOMED Code(s): 202951851 (6) Chronic kidney disease Current Visit: Yes Status: Acute Code(s): N18.9 - CHRONIC KIDNEY DISEASE, UNSPECIFIED SNOMED Code(s): 921283385 (7) MDS (myelodysplastic syndrome) Current Visit: No Status: Chronic Priority: High Code(s): D46.9 - MYELODYSPLASTIC SYNDROME, UNSPECIFIED SNOMED Code(s): 550947921 (8) Hypokalemia Narrative/Plan: Replace potassium per protocol Current Visit: Yes Status: Acute Code(s): E87.6 - HYPOKALEMIA SNOMED Code(s): 64396207 Plan: 1. Continue symptomatic and supportive care 2. Lactulose changed to 30 g by mouth 3 times a day, titrate to have 3-4 bowel movements daily 3. Add Xifaxin 550 mg BID 4. Daily CBC, CMP, ammonia. AFP, alpha 1 antitrypsin, DAVID, hepatitis panel, iron profile and ferritin ordered. 5. Continue alcohol abstinence and avoid hepatotoxic medications 6. Patient will need outpatient monitoring with gastroenterology 7. Consider neurology consultation for prolonged altered mental status despite improved ammonia levels 8. Continue medical management per primary team and multiple consultants Thank you for this consultation, we'll continue to follow. Dr. Devan Moody I agree with the dictator's note, documented as a scribe by Mary West.
--- NOTE | 2022-11-20 13:52 | P.PN ---
Subjective Progress Note Date: 11/20/22 Principal diagnosis: Acute on chronic dyspnea and right-sided heart failure with cor pulmonale and hepatic encephalopathy. This is an 82-year-old the patient was hospitalized 2 days back because of shortness of breath, orthopnea, paroxysmal nocturnal dyspnea and significant edema in the lower extremity bilaterally. The patient is morbidly obese with a BMI of 40.4. The patient has obstructive sleep apnea. The patient also has chronic kidney disease, stage III, diabetes mellitus type 2, chronic into fibrillation and signs of chronic right-sided heart failure. The patient is also [id number] smoking history. He was not diagnosed having COPD in the past. The maternal Lasix on outpatient basis. Since his admission, the patient denies having any major improvement. Continues to have shortness of breath cough and congestion and extensive edema and his scrotum, abdomen and lower oximetry is bilaterally. Based on that, Pulmicort consultation was requested. The patient is on long-term and coagulation with Eliquis. The patient has no chest pain. No syncope. He is producing urine output and the patient has been negative fluid balance over the past 24 hours. Nevertheless, the balance of the fluid has not been enough to improve any of his symptoms. His chest x-ray at time of admission was consistent with CHF with bilateral pleural effusions and cardiac megaly and bibasilar pulmonary infiltrates. There is evidence of diffuse interstitial pattern. Blood work from today shows a GFR of 36, BUN is 29 with a creatinine of 1.7 and a sodium level is at 132. The discomfort at 6.8 with a hemoglobin of 8 and a platelet count of 57. Glucose at 127. Echocard iogram showed LV systolic function, borderline normal, dilated RV, severe pulmonary hypertension and moderate to severe mitral regurgitation and moderate degree of tricuspid regurgitation. The estimated the right-sided pressure was 64 mmHg. On today's evaluation of 11/13/2022, the patient is feeling better. The patient is less short of breath compared to yesterday and the patient has diabetes at least 3 L and the neck fluid balance is -3 L over the past 24 hours. He reports improvement of the abdominal swelling in the lower extremity edema. The patient remains on Lasix drip at 5 mg an hour and the patient is also Zaroxolyn. Nephrology has been consulted. Renal function remains stable. He is also on examination bronchodilators and steroids as the patient was told to have a component of COPD exacerbation also. CHF and interstitial edema and the findings are essentially stable. The patient is going 7.4 with a hemoglobin of 8.1. BUN is at 35 with a creatinine of 1.5 and a sodium level is at 133. Overall responses has been positive. Awaiting nephrology consultation. Cardiology has also been involved in the case as the patient has right-sided heart failure, chronic A. fib and mitral regurgitation. On 11/14/2022, patient is doing well. The patient continues to diurese ad equately. The patient remains on Lasix drip at 5 mg an hour and the patient is also Zaroxolyn 5 mg by mouth twice a day. Fluid balance is negative in the order of more than 3 L and the patient continues to lose weight. The patient is improved and he is less short of breath. The patient is currently on 2 L of O2 nasal cannula with a pulse ox of 99 200%. No chest pain. No shortness of breath. Lower extremity edema, abdominal wall edema and scrotal edema or improving. On today's blood work, the WBC count 11.9 with a hemoglobin of 7.5. BUN is 45 with a creatinine 0.9 and his sodium level is at 134. He remains on bronchodilators. Remains on IV steroids. The patient remained atrial fib rillation and he has chronic mitral regurgitation. 11/13/2022, the patient remains on Lasix drip and is currently on 10 mg an hour. Doing well. No respiratory difficulties. Is also on Zaroxolyn 5 mg by mouth on a daily basis. The BUN is at 53 with a creatinine of 1.6 which is improved compared to yesterday. Sodium level is at 135. The echoes at 7.7 with a hemoglobin of 7.8 and a platelet count of 55. Noted the patient has chronic normocytic. The platelet count remains unchanged. The overall fluid balance has been negative and the patient weight is currently down to 110 kg and he is in negative fluid balance of at least 3.4 L over the past 24 hours. 11/16/2022, condition is essentially stable and the patient remains on Lasix drip at 10 mg an hour and Zaroxolyn 5 mg by mouth daily. The patient's body weight is down to 104 kg yesterday and the patient has been another 3.5 L negative fluid balance since yesterday. The patient is stable. He is a 65 with a creatinine of 2.01. Sodium is at 134. Serum bicarb is at 39. The patient is showing marked improvement in his lower extremity edema. He is still complaining of some exertional dyspnea. He remains on oxygen at 2 L/m nasal cannula. The patient otherwise has no complaints. Remains on anticoagulation with Eliquis 2.5 mg twice a day. Rest of the home medications are unchanged and the patient is also on a prednisone burst taper starting with 40 mg by mouth daily. 11/17/2022, the patient remains on Lasix drip and Zaroxolyn. The patient's weight is down to 97 kg and the patient has lost another 4 L of fluid balance over the past 24 hours. The breathing is stable for now. He is still on 2 L of oxygen by nasal cannula. He has developed some metabolic alkalosis. There is essentially related to diuresis. Serum bicarbs of 44. BUN is at 74 with a creatinine 1.9. The hemoglobin is at 7.7. Remains on anticoagulation. Also completing a course of prednisone burst taper. On 11/18/2022, the patient's condition is decompensated. Overnight, the patient became aggressive, confused and agitated. He was given samples 25 mg at bedtime it was also given Haldol IV. This morning is more lethargic. He is aggressively diuresed with Lasix and Zaroxolyn. The patient is currently off Lasix. He was switched to oral Demadex and I discontinued Zaroxolyn. Note that the patient has become quite alkalotic. He received Diamox and the blood gas that was done today shows a pH of 7.3 with a pCO2 of 40. The pO2 was 44 on FiO2 of 28%. At the same time, the patient's serum bicarb was at 34 and this dropped from 41. Rest of the blood work shows a BUN of 69 and a creatinine of 1.9 and sodium levels of 136. Potassium levels at 3.4. WBC count is at 17.4 with a hemoglobin of 7.8 and a platelet count of 82. His serum ammonia level was found to be quite elevated at 255. The patient was started on lactulose enemas. CAT scan of the brain showed no acute abnormalities. A repeat chest x-ray was done today shows cardiomegaly with mild vascular congestion and overall picture is essentially improved. Reevaluated today on 11/19/22, patient, patient is sleeping, his is at bedside, apparently he was given some sedation earlier today for extreme agitation and confusion. Patient has been receiving Haldol. Patient remains on diuretics, remains on treatment for hyperammonemia level. Intermittently encephalopathic and agitated, although his ammonia level is down to 48 today. CBC is relatively normal except for hemoglobin of 7.8 WBC count of 17.4, INR is 1.6 Reevaluated today on 11/20/2022, patient seems to be much better today, more awake, still a bit confused, is at bedside. Patient is on room air, does not seem to be in any distress. Labs showed hemoglobin of 7.7 elevated sodium of 148 low potassium of 2.7 and renal profile about the same with creatinine of 1.65. His liver enzymes showed a elevated total bilirubin of 3.6 ALT of 57 and AST of 172. Seen by gastroenterology on consultation, felt to have liver cirrhosis hepatic encephalopathy congestive heart failure, the recommendation is to continue lactulose, continue supportive care measures, and avoidance of hepatotoxic drugs. Objective - Vital Signs Vital signs: Vital Signs Temp 98.1 F 11/20/22 12:14 Pulse 84 11/20/22 13:30 Resp 18 11/20/22 12:14 BP 122/76 11/20/22 12:14 Pulse Ox 97 11/20/22 12:14 FiO2 28 11/17/22 08:36 Intake & Output 11/19/22 11/20/22 11/20/22 18:59 06:59 18:59 Intake Total 240 Output Total 1125 725 350 Balance -1125 -725 -110 Weight 83.5 kg Intake: Oral 240 Output: Urine 1125 725 350 Other: Voiding Method Indwelling Catheter Indwelling Catheter # Bowel Movements 1 - Exam GENERAL: 82-year-old white male in no distress. On room air today. HEENT: Devora, EOMI, nonicteric, EOMI, nonicteric Chest: Symmetrical chest expansion Pulmonary: Diminished breath sounds at the bases no rhonchi no wheezes Abdomen:, Soft nontender no megaly no rebound no guarding MUSCULOSKELETAL: no deformities and no limitation in range of motion Extremities: No clubbing, trace of pedal edema noted. NEUROLOGICAarousable, follows simple instructions, less confused today compared to yesterday Skin: No rashes - Labs CBC & Chem 7: 11/20/22 07:42 11/20/22 07:42 Labs: Abnormal Lab Results - Last 24 Hours (Table) 11/19/22 11/19/22 11/19/22 Range/Units 14:20 16:43 19:39 RBC (4.30-5.90) m/uL Hgb (13.0-17.5) gm/dL Hct (39.0-53.0) % MCV (80.0-100.0) fL MCH (25.0-35.0) pg RDW (11.5-15.5) % Plt Count (150-450) k/uL Neutrophils # (1.3-7.7) k/uL Macrocytosis Sodium (137-145) mmol/L Potassium 2.7 L* (3.5-5.1) mmol/L Chloride (98-107) mmol/L Carbon Dioxide 36 H (22-30) mmol/L BUN 76 H (9-20) mg/dL Creatinine 1.80 H (0.66-1.25) mg/dL Glucose 148 H (74-99) mg/dL POC Glucose (mg/dL) 166 H 160 H (70-110) mg/dL Total Bilirubin (0.2-1.3) mg/dL AST (17-59) U/L ALT (4-49) U/L Albumin (3.5-5.0) g/dL 11/20/22 11/20/22 11/20/22 Range/Units 06:17 07:42 07:42 RBC 1.94 L (4.30-5.90) m/uL Hgb 7.7 L (13.0-17.5) gm/dL Hct 22.9 L (39.0-53.0) % MCV 117.9 H (80.0-100.0) fL MCH 39.4 H (25.0-35.0) pg RDW 20.9 H (11.5-15.5) % Plt Count 72 L (150-450) k/uL Neutrophils # 8.4 H (1.3-7.7) k/uL Macrocytosis Marked A Sodium 148 H (137-145) mmol/L Potassium 2.7 L* (3.5-5.1) mmol/L Chloride 109 H (98-107) mmol/L Carbon Dioxide 34 H (22-30) mmol/L BUN 73 H (9-20) mg/dL Creatinine 1.65 H (0.66-1.25) mg/dL Glucose 164 H (74-99) mg/dL POC Glucose (mg/dL) 188 H (70-110) mg/dL Total Bilirubin 3.6 H (0.2-1.3) mg/dL AST 172 H (17-59) U/L ALT 57 H (4-49) U/L Albumin 3.3 L (3.5-5.0) g/dL 11/20/22 Range/Units 11:31 RBC (4.30-5.90) m/uL Hgb (13.0-17.5) gm/dL Hct (39.0-53.0) % MCV (80.0-100.0) fL MCH (25.0-35.0) pg RDW (11.5-15.5) % Plt Count (150-450) k/uL Neutrophils # (1.3-7.7) k/uL Macrocytosis Sodium (137-145) mmol/L Potassium (3.5-5.1) mmol/L Chloride (98-107) mmol/L Carbon Dioxide (22-30) mmol/L BUN (9-20) mg/dL Creatinine (0.66-1.25) mg/dL Glucose (74-99) mg/dL POC Glucose (mg/dL) 257 H (70-110) mg/dL Total Bilirubin (0.2-1.3) mg/dL AST (17-59) U/L ALT (4-49) U/L Albumin (3.5-5.0) g/dL Microbiology - Last 24 Hours (Table) 11/18/22 14:40 Blood Culture - Preliminary Blood Assessment and Plan Assessment: Impression: Acute hepatic encephalopathy, suspect liver cirrhosis secondary to remote alcohol abuse. Altered mental status secondary to above, acute metabolic toxic encephalopathy Acute diastolic congestive heart failure Acute on chronic kidney disease Acute metabolic alkalosis secondary to diuretics Moderate severe pulmonary hypertension Moderate severe mitral regurgitation History of mild COPD Chronic atrial fibrillation History of colonic polyps Type 2 diabetes with diabetic nephropathy History of CVA without any residual deficit Recommendation: Continue lactulose, continue rifaximin Continue to monitor ammonia level Continue diuretics Address abnormal electrolytes including sodium and potassium accordingly We'll continue to follow Time with Patient: Less than 30
--- NOTE | 2022-11-20 14:13 | P.PN ---
Subjective This is a pleasant 82 years old male with multiple medical problems including history of heart failure presents with worsening dyspnea and leg swelling on and he was found with fluid overload secondary to diastolic CHF, echocardiogram from 09/2022 showing ejection fraction 55%. Currently dietitian therapeutic signed off the case and patient being monitored closely by nephrology team. He remains on Lasix drip 10 mg/h, creatinine 1.4, 1.6 and 2.1. Discuss case with nephrology team who recommended to keep the Lasix drip for now. Pulmonary team on the case for mild COPD exacerbation and currently on a prednisone 40 mg. Hemoglobin 7.8. 11/17/2022 patient CHF and fluid overload improving, his oxygen saturation is acceptable and wants only with minimal crepitation mainly on the right side however he still have 2+ leg edema. However patient developed more alkalosis therefore Lasix drip was stopped and started on torsemide while the dose for Zaroxolyn was lowered to 2.5 mg. Creatinine is stable at 2.0 compared to 1.4 on admission. However patient become more confused today most likely secondary to metabolic encephalopathy and toxic encephalopathy. No recent fall. Patient fell about 3 days ago at that time CT of the brain was negative. Workup showing ammonia level is high at 255 and lactulose is added. We will continue neuro check and consider repeat CT of the brain condition worsens Pressure applied with sponge gel to bleeding superficial ulcer on the right forearm. 11/18/2022 Patient still confused and sleepy this morning from yesterday he got worse significantly. There is no new symptoms, he slipped with the And tachycardic. He had low-grade temperature of 99.8. Leukocytosis worsened 10.5 up to 17,000. Chest x-ray and urinalysis were repeated they were negative for acute process. Risks of flaps looks stable. Creatinine 1.9 which is a stable but higher than baseline because he was on Lasix drip. The sixth rib. Now, torsemide is only once daily. Also patient started on normal saline 75 mL/h Patient continued on prednisone 40 mg once a Eliquis area We will send blood culture and check liver ultrasound as liver enzymes and bilirubin only mildly elevated although this is not very new. Plan discussed with staff and bedside nurse more than once. 11/19/2022 Patient slightly improving regarding his mentation, he still confused sleepy and does not respond to verbal or tactile stimuli but he opens his eyes from moving in bed to some degree which she was not doing its yesterday. His ammonia level is elevated yesterday to 55 and liver ultrasound showing possible liver cirrhosis which is most likely related to alcoholic liver cirrhosis. GI team. He is started on lactulose and ammonia level improved and 48. Also he remains on normal saline at 50 mL/h, alert from 75 mm/h for acute kidney injury and metabolic abnormalities including contraction alkalosis. Check labs tomorrow 11/20/2022 Patient is more awake and interactive significantly better than yesterday and he can answer some questions but still confused and not quite back to his baseline. However patient denies any pain or specific symptoms. He has frequent bowel movements. GI team on the case for his hepatic encephalopathy and his lactulose dose was increased to 30 mg 3 times a day and rifaximin is added. Sodium 148 and patient started on D5 W Creatinine improving down to 1.6. Patient remains on prednisone 40 mg Objective - Vital Signs Vital signs: Vital Signs Temp 98.1 F 11/20/22 12:14 Pulse 84 11/20/22 13:30 Resp 18 11/20/22 12:14 BP 122/76 11/20/22 12:14 Pulse Ox 97 11/20/22 12:14 FiO2 28 11/17/22 08:36 Intake & Output 11/19/22 11/20/22 11/20/22 18:59 06:59 18:59 Intake Total 240 Output Total 1125 725 350 Balance -1125 -725 -110 Weight 83.5 kg Intake: Oral 240 Output: Urine 1125 725 350 Other: Voiding Method Indwelling Catheter Indwelling Catheter # Bowel Movements 1 - Exam GENERAL: The patient is alert and oriented x3, not in any acute distress. Well developed, well nourished. HEENT: Pupils are round and equally reacting to light. EOMI. No scleral icterus. No conjunctival pallor. Normocephalic, atraumatic. No pharyngeal erythema. No thyromegaly. CARDIOVASCULAR: S1 and S2 present. No murmurs, rubs, or gallops. -PULMONARY: Chest is clear to auscultation, no wheezing , bilateral basal crackles. ABDOMEN: Soft, nontender, nondistended, normoactive bowel sounds. No palpable organomegaly. MUSCULOSKELETAL: No joint swelling or deformity. -EXTREMITIES: No cyanosis, clubbing, patient has bilateral pitting like edema. NEUROLOGICAL: Gross neurological examination did not reveal any focal deficits. SKIN: No rashes. no petechiae. - Labs CBC & Chem 7: 11/20/22 07:42 11/20/22 07:42 Labs: Abnormal Lab Results - Last 24 Hours (Table) 11/19/22 11/19/22 11/19/22 Range/Units 14:20 16:43 19:39 RBC (4.30-5.90) m/uL Hgb (13.0-17.5) gm/dL Hct (39.0-53.0) % MCV (80.0-100.0) fL MCH (25.0-35.0) pg RDW (11.5-15.5) % Plt Count (150-450) k/uL Neutrophils # (1.3-7.7) k/uL Macrocytosis Sodium (137-145) mmol/L Potassium 2.7 L* (3.5-5.1) mmol/L Chloride (98-107) mmol/L Carbon Dioxide 36 H (22-30) mmol/L BUN 76 H (9-20) mg/dL Creatinine 1.80 H (0.66-1.25) mg/dL Glucose 148 H (74-99) mg/dL POC Glucose (mg/dL) 166 H 160 H (70-110) mg/dL Total Bilirubin (0.2-1.3) mg/dL AST (17-59) U/L ALT (4-49) U/L Albumin (3.5-5.0) g/dL 11/20/22 11/20/22 11/20/22 Range/Units 06:17 07:42 07:42 RBC 1.94 L (4.30-5.90) m/uL Hgb 7.7 L (13.0-17.5) gm/dL Hct 22.9 L (39.0-53.0) % MCV 117.9 H (80.0-100.0) fL MCH 39.4 H (25.0-35.0) pg RDW 20.9 H (11.5-15.5) % Plt Count 72 L (150-450) k/uL Neutrophils # 8.4 H (1.3-7.7) k/uL Macrocytosis Marked A Sodium 148 H (137-145) mmol/L Potassium 2.7 L* (3.5-5.1) mmol/L Chloride 109 H (98-107) mmol/L Carbon Dioxide 34 H (22-30) mmol/L BUN 73 H (9-20) mg/dL Creatinine 1.65 H (0.66-1.25) mg/dL Glucose 164 H (74-99) mg/dL POC Glucose (mg/dL) 188 H (70-110) mg/dL Total Bilirubin 3.6 H (0.2-1.3) mg/dL AST 172 H (17-59) U/L ALT 57 H (4-49) U/L Albumin 3.3 L (3.5-5.0) g/dL 11/20/22 Range/Units 11:31 RBC (4.30-5.90) m/uL Hgb (13.0-17.5) gm/dL Hct (39.0-53.0) % MCV (80.0-100.0) fL MCH (25.0-35.0) pg RDW (11.5-15.5) % Plt Count (150-450) k/uL Neutrophils # (1.3-7.7) k/uL Macrocytosis Sodium (137-145) mmol/L Potassium (3.5-5.1) mmol/L Chloride (98-107) mmol/L Carbon Dioxide (22-30) mmol/L BUN (9-20) mg/dL Creatinine (0.66-1.25) mg/dL Glucose (74-99) mg/dL POC Glucose (mg/dL) 257 H (70-110) mg/dL Total Bilirubin (0.2-1.3) mg/dL AST (17-59) U/L ALT (4-49) U/L Albumin (3.5-5.0) g/dL Microbiology - Last 24 Hours (Table) 11/18/22 14:40 Blood Culture - Preliminary Blood Assessment and Plan Assessment: 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 Recent CT of the brain is negative Acute diastolic CHF, currently patient got more contraction Acute kidney injury on chronic kidney disease stage III Acute metabolic alkalosis, possibly exacerbated by contraction alkalosis. moderate to severe mitral regurgitation Severe pulmonary hypertension Mild COPD exacerbation Plan: Continue with lactulose, follow-up ammonia. Appreciate GI input Start on D5W Patient currently on torsemide on small dose of Zaroxolyn, smaller dose continue with the prednisone 40 mg Glass Calibrator in of the case. GI team on the case Pulmonary team on the case and currently on a prednisone 40 mg Molder Machine Signed off the case start lactulose for high ammonia Monitor her mentation Labs and medication were reviewed.. Continue same treatment. Continue with symptomatic treatment. Resume home medication. Monitor labs and vitals. DVT a nd GI prophylaxis. Further recommendations as per clinical course of the patient DVT prophylaxis: Eliquis GI prophylaxis: Protonix PT/OT: Pending Prognosis is guarded
[2022-11-20 16:11] LABS: % Iron Saturation 83.82 (15.00-50.00); Iron 259 UG/DL (65-175); Total Iron Binding Capacity 309 UG/DL (228-460)
[2022-11-20 16:50] LABS: Glucose,Whole Blood 202 mg/dL (70-110)
[2022-11-20] MEDS: traMADol 50 MG TAB PO PRN (16:55)
[2022-11-20 19:37] LABS: Glucose,Whole Blood 275 mg/dL (70-110)
[2022-11-20] MEDS: TAMSULOSIN 0.4 MG CAP.ER.24H PO SCH (20:59)
[2022-11-20] MEDS: DORZOLAMIDE-TIMOLOL 2.23%/0.68 10ML BTL BOTH EYES SCH (21:00)
[2022-11-20] MEDS: LATANOPROST 0.005% OPHTH DROPS 2.5 ML BTL BOTH EYES SCH (21:00)
[2022-11-21] MEDS: POTASSIUM CHLORIDE 10 MEQ in WATER FOR INJECTION 1 100ML.BAG IVPB SCH ×10 (00:02→21:43)
[2022-11-21] MEDS: DEXTROSE 5% IN WATER 1,000 ML IV SCH ×2 (05:43→10:17)
[2022-11-21 05:44] LABS: Glucose,Whole Blood 197 mg/dL (70-110)
[2022-11-21] MEDS: PANTOPRAZOLE 40 MG TABLET PO SCH (05:44)
[2022-11-21] MEDS: INSULIN ASPART (NovoLOG) 100 UNIT/ML VIAL SQ SCH ×4 (05:44→20:25)
[2022-11-21 07:51] LABS: Anisocytosis Moderate; Basophils % (A) 0 %; Eosinophils # (A) 0.1 k/uL (0-0.7); Eosinophils % (A) 1 %; HCT 24.9 % (39.0-53.0); HGB 8.1 gm/dL (13.0-17.5); Hypochromasia Slight; Lymphocytes % (A) 6 %; MCH 37.7 pg (25.0-35.0); MCHC 32.5 g/dL (31.0-37.0); MCV 116.2 fL (80.0-100.0); Macrocytosis Marked; Mean Platelet Volume 12.2; Monocytes # (A) 0.7 k/uL (0-1.0); Monocytes % (A) 4 %; Neutrophils # (A) 14.1 k/uL (1.3-7.7); Neutrophils % (A) 87 %; RBC 2.14 m/uL (4.30-5.90); RDW 21.1 % (11.5-15.5); WBC 16.2 k/uL (3.8-10.6)
[2022-11-21 07:56] LABS: Platelet Count 80 k/uL (150-450)
[2022-11-21 08:17] LABS: African American GFR (CKD) 44 (>60 ml/min/1.73 sqM); Anion Gap 4 mmol/L; Blood Urea Nitrogen 63 mg/dL (9-20); Calcium 9.2 mg/dL (8.4-10.2); Carbon Dioxide 35 mmol/L (22-30); Chloride 109 mmol/L (98-107); Glucose 159 mg/dL (74-99); Non-African American GFR(CKD) 38 (>60 ml/min/1.73 sqM); Potassium 2.8 mmol/L (3.5-5.1); Sodium 148 mmol/L (137-145)
[2022-11-21] MEDS: IPRATROPIUM-ALBUTEROL 3 ML NEB INHALATION SCH ×3 (09:28→20:13)
[2022-11-21] MEDS: BUDESONIDE 0.5 MG/2 ML NEBU INHALATION SCH ×2 (09:28→20:13)
[2022-11-21] MEDS: RIFAXIMIN 550 MG TABLET PO SCH ×2 (10:03→19:52)
[2022-11-21] MEDS: ATORVASTATIN 40 MG TAB PO SCH (10:03)
[2022-11-21] MEDS: MULTIVITAMINS, THERA 1 EACH TAB PO SCH (10:03)
[2022-11-21] MEDS: APIXABAN 2.5 MG TABLET PO SCH (10:03)
[2022-11-21] MEDS: predniSONE 20 MG TAB PO SCH (10:03)
[2022-11-21] MEDS: THIAMINE 100 MG/ML 2 ML VIAL IVP SCH (10:04)
[2022-11-21] MEDS: traMADol 50 MG TAB PO PRN (10:04)
[2022-11-21] MEDS: FERROUS SULFATE 325 MG TAB PO SCH (10:04)
[2022-11-21] MEDS: POTASSIUM CHLORIDE ER 20 MEQ TAB.ER PO SCH (10:07)
--- NOTE | 2022-11-21 10:37 | CT ---
EXAMINATION TYPE: CT abdomen pelvis wo con CT DLP: 892.8 mGycm, Automated exposure control for dose reduction was used. DATE OF EXAM: 11/21/2022 9:21 AM COMPARISON: Liver ultrasound 11/18/2022 CLINICAL INDICATION:Male, 82 years old with history of pain; Abdominal pain TECHNIQUE: Standard CT of the abdomen and pelvis without IV or oral contrast. Lack of IV or oral co ntrast limits evaluation of solid and hollow organ viscera. Coronal and sagittal reformats were perfo rmed. FINDINGS: LOWER CHEST: Posterior dependent subsegmental atelectasis is noted. Cardiomegaly. Coronary arterial c alcifications. ABDOMEN LIVER: Nodular contour to the liver with widened fissures most consistent with cirrhosis. GALLBLADDER AND BILE DUCTS: Unremarkable. PANCREAS: Unremarkable noncontrast appearance. SPLEEN: Top end of normal for size measuring 13.8 cm in CC dimension. ADRENAL GLANDS: Right adrenal gland hypodense 1.8 cm nodule consistent with a benign lipid rich adeno ma. Poor visualization of the left adrenal gland.. KIDNEYS AND URETERS: No evidence of hydronephrosis. Nonobstructive bilateral renal calculi with large st in the left kidney measuring up to 7 mm. Lateral renal cysts. PELVIS BLADDER: Nondistended with Ruiz catheter in place. REPRODUCTIVE: Unremarkable. ABDOMEN & PELVIS STOMACH AND BOWEL: Fluid-filled distal esophagus. Small bowel is normal in caliber.Dilated fluid and gas-filled colon extending to the rectum. No focal transition point. No evidence of bowel obstruction . Mildly dilated appendix measuring up to 1.2 cm with appearance of gas within the tip (series 202, i mage 63). There is some surrounding fluid/stranding. PERITONEUM: No evidence of pneumoperitoneum. Trace perihepatic ascites. Additional regions of trace a scites throughout the abdomen. VASCULATURE: Infrarenal fusiform abdominal aortic aneurysm measuring up to 5.3 cm. Mild atherosclerot ic calcification of the aorta and its branches. Splenic collaterals identified. MUSCULOSKELETAL: No acute osseous abnormalities. Postsurgical changes from lumbar fusion at L4-L5 wit h disc fusion cages. Mild multilevel degenerative disc disease. LYMPH NODES: No gross evidence for lymphadenopathy. SOFT TISSUE/ABDOMINAL WALL: Unremarkable IMPRESSION: 1. Dilated appendix with gas within the tip. There is some nonspecific surrounding fluid/stranding. Findings could be seen with acute appendicitis. Clinical correlation is recommended. 2. Gas and stool-filled dilated colon and rectum without focal transition point suggestive of an colo yan ileus. 3. Infrarenal abdominal aortic aneurysm measuring up to 5.3 cm. 4. Hepatic cirrhosis with findings suggestive of portal hypertension with trace ascites and splenic c ollaterals. 5. Right adrenal gland lipid rich adenoma. 6. Nonobstructive bilateral renal calculi. Findings called to the patient's nurse Catarina at 10:34 AM on 11/13/2022.
[2022-11-21 10:43] LABS: Glucose,Whole Blood 244 mg/dL (70-110)
[2022-11-21 11:47] LABS: Glucose,Whole Blood 283 mg/dL (70-110)
[2022-11-21] MEDS ORDERED: MAGNESIUM SULFATE-D5W PMX 1 GM in DEXTROSE/WATER 1 100ML.BAG IVPB ONE (12:01)
--- NOTE | 2022-11-21 12:07 | P.PN ---
Subjective Progress Note Date: 11/21/22 Principal diagnosis: Acute on chronic dyspnea and right-sided heart failure with cor pulmonale and hepatic encephalopathy. This is an 82-year-old the patient was hospitalized 2 days back because of shortness of breath, orthopnea, paroxysmal nocturnal dyspnea and significant edema in the lower extremity bilaterally. The patient is morbidly obese with a BMI of 40.4. The patient has obstructive sleep apnea. The patient also has chronic kidney disease, stage III, diabetes mellitus type 2, chronic into fibrillation and signs of chronic right-sided heart failure. The patient is also [id number] smoking history. He was not diagnosed having COPD in the past. The maternal Lasix on outpatient basis. Since his admission, the patient denies having any major improvement. Continues to have shortness of breath cough and congestion and extensive edema and his scrotum, abdomen and lower oximetry is bilaterally. Based on that, Pulmicort consultation was requested. The patient is on long-term and coagulation with Eliquis. The patient has no chest pain. No syncope. He is producing urine output and the patient has been negative fluid balance over the past 24 hours. Nevertheless, the balance of the fluid has not been enough to improve any of his symptoms. His chest x-ray at time of admission was consistent with CHF with bilateral pleural effusions and cardiac megaly and bibasilar pulmonary infiltrates. There is evidence of diffuse interstitial pattern. Blood work from today shows a GFR of 36, BUN is 29 with a creatinine of 1.7 and a sodium level is at 132. The discomfort at 6.8 with a hemoglobin of 8 and a platelet count of 57. Glucose at 127. Echocard iogram showed LV systolic function, borderline normal, dilated RV, severe pulmonary hypertension and moderate to severe mitral regurgitation and moderate degree of tricuspid regurgitation. The estimated the right-sided pressure was 64 mmHg. On today's evaluation of 11/13/2022, the patient is feeling better. The patient is less short of breath compared to yesterday and the patient has diabetes at least 3 L and the neck fluid balance is -3 L over the past 24 hours. He reports improvement of the abdominal swelling in the lower extremity edema. The patient remains on Lasix drip at 5 mg an hour and the patient is also Zaroxolyn. Nephrology has been consulted. Renal function remains stable. He is also on examination bronchodilators and steroids as the patient was told to have a component of COPD exacerbation also. CHF and interstitial edema and the findings are essentially stable. The patient is going 7.4 with a hemoglobin of 8.1. BUN is at 35 with a creatinine of 1.5 and a sodium level is at 133. Overall responses has been positive. Awaiting nephrology consultation. Cardiology has also been involved in the case as the patient has right-sided heart failure, chronic A. fib and mitral regurgitation. On 11/14/2022, patient is doing well. The patient continues to diurese ad equately. The patient remains on Lasix drip at 5 mg an hour and the patient is also Zaroxolyn 5 mg by mouth twice a day. Fluid balance is negative in the order of more than 3 L and the patient continues to lose weight. The patient is improved and he is less short of breath. The patient is currently on 2 L of O2 nasal cannula with a pulse ox of 99 200%. No chest pain. No shortness of breath. Lower extremity edema, abdominal wall edema and scrotal edema or improving. On today's blood work, the WBC count 11.9 with a hemoglobin of 7.5. BUN is 45 with a creatinine 0.9 and his sodium level is at 134. He remains on bronchodilators. Remains on IV steroids. The patient remained atrial fib rillation and he has chronic mitral regurgitation. 11/13/2022, the patient remains on Lasix drip and is currently on 10 mg an hour. Doing well. No respiratory difficulties. Is also on Zaroxolyn 5 mg by mouth on a daily basis. The BUN is at 53 with a creatinine of 1.6 which is improved compared to yesterday. Sodium level is at 135. The echoes at 7.7 with a hemoglobin of 7.8 and a platelet count of 55. Noted the patient has chronic normocytic. The platelet count remains unchanged. The overall fluid balance has been negative and the patient weight is currently down to 110 kg and he is in negative fluid balance of at least 3.4 L over the past 24 hours. 11/16/2022, condition is essentially stable and the patient remains on Lasix drip at 10 mg an hour and Zaroxolyn 5 mg by mouth daily. The patient's body weight is down to 104 kg yesterday and the patient has been another 3.5 L negative fluid balance since yesterday. The patient is stable. He is a 65 with a creatinine of 2.01. Sodium is at 134. Serum bicarb is at 39. The patient is showing marked improvement in his lower extremity edema. He is still complaining of some exertional dyspnea. He remains on oxygen at 2 L/m nasal cannula. The patient otherwise has no complaints. Remains on anticoagulation with Eliquis 2.5 mg twice a day. Rest of the home medications are unchanged and the patient is also on a prednisone burst taper starting with 40 mg by mouth daily. 11/17/2022, the patient remains on Lasix drip and Zaroxolyn. The patient's weight is down to 97 kg and the patient has lost another 4 L of fluid balance over the past 24 hours. The breathing is stable for now. He is still on 2 L of oxygen by nasal cannula. He has developed some metabolic alkalosis. There is essentially related to diuresis. Serum bicarbs of 44. BUN is at 74 with a creatinine 1.9. The hemoglobin is at 7.7. Remains on anticoagulation. Also completing a course of prednisone burst taper. On 11/18/2022, the patient's condition is decompensated. Overnight, the patient became aggressive, confused and agitated. He was given samples 25 mg at bedtime it was also given Haldol IV. This morning is more lethargic. He is aggressively diuresed with Lasix and Zaroxolyn. The patient is currently off Lasix. He was switched to oral Demadex and I discontinued Zaroxolyn. Note that the patient has become quite alkalotic. He received Diamox and the blood gas that was done today shows a pH of 7.3 with a pCO2 of 40. The pO2 was 44 on FiO2 of 28%. At the same time, the patient's serum bicarb was at 34 and this dropped from 41. Rest of the blood work shows a BUN of 69 and a creatinine of 1.9 and sodium levels of 136. Potassium levels at 3.4. WBC count is at 17.4 with a hemoglobin of 7.8 and a platelet count of 82. His serum ammonia level was found to be quite elevated at 255. The patient was started on lactulose enemas. CAT scan of the brain showed no acute abnormalities. A repeat chest x-ray was done today shows cardiomegaly with mild vascular congestion and overall picture is essentially improved. Reevaluated today on 11/19/22, patient, patient is sleeping, his is at bedside, apparently he was given some sedation earlier today for extreme agitation and confusion. Patient has been receiving Haldol. Patient remains on diuretics, remains on treatment for hyperammonemia level. Intermittently encephalopathic and agitated, although his ammonia level is down to 48 today. CBC is relatively normal except for hemoglobin of 7.8 WBC count of 17.4, INR is 1.6 Reevaluated today on 11/20/2022, patient seems to be much better today, more awake, still a bit confused, is at bedside. Patient is on room air, does not seem to be in any distress. Labs showed hemoglobin of 7.7 elevated sodium of 148 low potassium of 2.7 and renal profile about the same with creatinine of 1.65. His liver enzymes showed a elevated total bilirubin of 3.6 ALT of 57 and AST of 172. Seen by gastroenterology on consultation, felt to have liver cirrhosis hepatic encephalopathy congestive heart failure, the recommendation is to continue lactulose, continue supportive care measures, and avoidance of hepatotoxic drugs. Reevaluated today on 11/21/2022, continues to do well, confusion is improving but not completely resolved. Ammonia level is back to normal. Patient is on room air, not in any distress, continues to have significant electrolytes abnormalities with hypernatremia sodium of 148 hypokalemia potassium of 2.8 borderline renal functioning with GFR of 38. Patient is hemodynamically stable, O2 sats is on the percent on 4 L. Objective - Vital Signs Vital signs: Vital Signs Temp 97.4 F L 11/21/22 11:37 Pulse 86 11/21/22 11:48 Resp 20 11/21/22 11:37 BP 108/66 11/21/22 11:37 Pulse Ox 100 11/21/22 11:37 FiO2 28 11/17/22 08:36 Intake & Output 11/20/22 11/21/22 11/21/22 18:59 06:59 18:59 Intake Total 430 600 Output Total 1 1126 Balance -1491 -1126 600 Weight 83.5 kg Intake: IV 10 Invasive Line 3 10 Oral 420 600 Output: Urine 1919 1125 Stool 1 1 Other: Voiding Method Indwelling Catheter Indwelling Catheter Indwelling Catheter - Exam GENERAL: 82-year-old white male in no distress. HEENT: Devora, EOMI, nonicteric, EOMI, nonicteric Chest: Symmetrical chest expansion Pulmonary: Diminished breath sounds at the bases no rhonchi no wheezes Abdomen:, Soft nontender no megaly no rebound no guarding MUSCULOSKELETAL: no deformities and no limitation in range of motion Extremities: No clubbing, trace of pedal edema noted. NEUROLOGICAarousable, follows simple instructions, less confused today compared to yesterday Skin: No rashes - Labs CBC & Chem 7: 11/21/22 07:33 11/21/22 07:33 Labs: Abnormal Lab Results - Last 24 Hours (Table) 11/20/22 11/20/22 11/20/22 Range/Units 07:42 16:49 18:21 WBC (3.8-10.6) k/uL RBC (4.30-5.90) m/uL Hgb (13.0-17.5) gm/dL Hct (39.0-53.0) % MCV (80.0-100.0) fL MCH (25.0-35.0) pg RDW (11.5-15.5) % Plt Count (150-450) k/uL Neutrophils # (1.3-7.7) k/uL Macrocytosis Sodium (137-145) mmol/L Potassium 2.6 L* (3.5-5.1) mmol/L Chloride (98-107) mmol/L Carbon Dioxide (22-30) mmol/L BUN (9-20) mg/dL Creatinine (0.66-1.25) mg/dL Glucose (74-99) mg/dL POC Glucose (mg/dL) 202 H (70-110) mg/dL Iron 259 H (65-175) UG/DL % Saturation 83.82 H (15.00-50.00) Ferritin 878.0 H (22.0-322.0) ng/mL 11/20/22 11/21/22 11/21/22 Range/Units 19:35 05:42 07:33 WBC 16.2 H (3.8-10.6) k/uL RBC 2.14 L (4.30-5.90) m/uL Hgb 8.1 L (13.0-17.5) gm/dL Hct 24.9 L (39.0-53.0) % MCV 116.2 H (80.0-100.0) fL MCH 37.7 H (25.0-35.0) pg RDW 21.1 H (11.5-15.5) % Plt Count 80 L (150-450) k/uL Neutrophils # 14.1 H (1.3-7.7) k/uL Macrocytosis Marked A Sodium (137-145) mmol/L Potassium (3.5-5.1) mmol/L Chloride (98-107) mmol/L Carbon Dioxide (22-30) mmol/L BUN (9-20) mg/dL Creatinine (0.66-1.25) mg/dL Glucose (74-99) mg/dL POC Glucose (mg/dL) 275 H 197 H (70-110) mg/dL Iron (65-175) UG/DL % Saturation (15.00-50.00) Ferritin (22.0-322.0) ng/mL 11/21/22 11/21/22 11/21/22 Range/Units 07:33 10:38 11:45 WBC (3.8-10.6) k/uL RBC (4.30-5.90) m/uL Hgb (13.0-17.5) gm/dL Hct (39.0-53.0) % MCV (80.0-100.0) fL MCH (25.0-35.0) pg RDW (11.5-15.5) % Plt Count (150-450) k/uL Neutrophils # (1.3-7.7) k/uL Macrocytosis Sodium 148 H (137-145) mmol/L Potassium 2.8 L (3.5-5.1) mmol/L Chloride 109 H (98-107) mmol/L Carbon Dioxide 35 H (22-30) mmol/L BUN 63 H (9-20) mg/dL Creatinine 1.65 H (0.66-1.25) mg/dL Glucose 159 H (74-99) mg/dL POC Glucose (mg/dL) 244 H 283 H (70-110) mg/dL Iron (65-175) UG/DL % Saturation (15.00-50.00) Ferritin (22.0-322.0) ng/mL Microbiology - Last 24 Hours (Table) 11/18/22 14:40 Blood Culture - Preliminary Blood Assessment and Plan Assessment: Impression: Acute hepatic encephalopathy, suspect liver cirrhosis secondary to remote alcohol abuse. Altered mental status secondary to above, acute metabolic toxic encephalopathy Acute diastolic congestive heart failure Acute on chronic kidney disease Acute metabolic alkalosis secondary to diuretics Moderate severe pulmonary hypertension Moderate severe mitral regurgitation History of mild COPD Chronic atrial fibrillation History of colonic polyps Type 2 diabetes with diabetic nephropathy History of CVA without any residual deficit Recommendation: Continue lactulose, continue rifaximin Address abnormal electrolytes and correct accordingly Continue diuretics No active pulmonary issues on this patient noted Will follow as needed Time with Patient: Less than 30
[2022-11-21] MEDS: LACTULOSE 20 GM/30 ML CUP PO SCH ×3 (12:55→19:52)
[2022-11-21] MEDS ORDERED: NA PHOS,M-B/NA PHOS,DI-BA 133 ML ENEMA RECTAL STA (13:18)
[2022-11-21] MEDS ORDERED: Potassium Replacement Protocol 1 EACH MISC MISCELLANE PRN (14:11)
--- NOTE | 2022-11-21 14:11 | P.PN ---
Subjective This is a pleasant 82 years old male with multiple medical problems including history of heart failure presents with worsening dyspnea and leg swelling on and he was found with fluid overload secondary to diastolic CHF, echocardiogram from 09/2022 showing ejection fraction 55%. Currently hand sample maker signed off the case and patient being monitored closely by nephrology team. He remains on Lasix drip 10 mg/h, creatinine 1.4, 1.6 and 2.1. Discuss case with nephrology team who recommended to keep the Lasix drip for now. Pulmonary team on the case for mild COPD exacerbation and currently on a prednisone 40 mg. Hemoglobin 7.8. 11/17/2022 patient CHF and fluid overload improving, his oxygen saturation is acceptable and wants only with minimal crepitation mainly on the right side however he still have 2+ leg edema. However patient developed more alkalosis therefore Lasix drip was stopped and started on torsemide while the dose for Zaroxolyn was lowered to 2.5 mg. Creatinine is stable at 2.0 compared to 1.4 on admission. However patient become more confused today most likely secondary to metabolic encephalopathy and toxic encephalopathy. No recent fall. Patient fell about 3 days ago at that time CT of the brain was negative. Workup showing ammonia level is high at 255 and lactulose is added. We will continue neuro check and consider repeat CT of the brain condition worsens Pressure applied with sponge gel to bleeding superficial ulcer on the right forearm. 11/18/2022 Patient still confused and sleepy this morning from yesterday he got worse significantly. There is no new symptoms, he slipped with the And tachycardic. He had low-grade temperature of 99.8. Leukocytosis worsened 10.5 up to 17,000. Chest x-ray and urinalysis were repeated they were negative for acute process. Risks of flaps looks stable. Creatinine 1.9 which is a stable but higher than baseline because he was on Lasix drip. The sixth rib. Now, torsemide is only once daily. Also patient started on normal saline 75 mL/h Patient continued on prednisone 40 mg once a Eliquis area We will send blood culture and check liver ultrasound as liver enzymes and bilirubin only mildly elevated although this is not very new. Plan discussed with staff and bedside nurse more than once. 11/19/2022 Patient slightly improving regarding his mentation, he still confused sleepy and does not respond to verbal or tactile stimuli but he opens his eyes from moving in bed to some degree which she was not doing its yesterday. His ammonia level is elevated yesterday to 55 and liver ultrasound showing possible liver cirrhosis which is most likely related to alcoholic liver cirrhosis. GI team. He is started on lactulose and ammonia level improved and 48. Also he remains on normal saline at 50 mL/h, alert from 75 mm/h for acute kidney injury and metabolic abnormalities including contraction alkalosis. Check labs tomorrow 11/20/2022 Patient is more awake and interactive significantly better than yesterday and he can answer some questions but still confused and not quite back to his baseline. However patient denies any pain or specific symptoms. He has frequent bowel movements. GI team on the case for his hepatic encephalopathy and his lactulose dose was increased to 30 mg 3 times a day and rifaximin is added. Sodium 148 and patient started on D5 W Creatinine improving down to 1.6. Patient remains on prednisone 40 mg 11/21/2022 Patient today sitting up in bed with sitter at bedside for safety, patient still little confused to the surrounding but improved compared to yesterday. Patient is not eating well he starts complaining from abdominal pain and tenderness today,(yesterday his abdomen was not tender on exam) on exam he had distention and tenderness periumbilical area, computed tomography scan of the abdomen and pelvis was obtained showing gas appendix suspicious for appendicitis and dilated bowel with no transitions zone suspicious for ileus. Patient hemodynamically stable and is afebrile, tachycardia improved. Ammonia improved to baseline yesterday. Creatinine is stable and improved down to 1.6. Hemoglobin is stable at 8.1 and he has mild leukocytosis. Patient was started on Zosyn with surgery to consult I discussed the case with Gen. surgery evaluated the patient Active Medications Generic Name Dose Route Start Last Admin Trade Name Freq PRN Reason Stop Dose Admin Albuterol Sulfate 2.5 mg 11/08/22 21:35 11/11/22 09:21 Albuterol Nebulized 2.5 Mg/3 Ml INHALATION 2.5 mg RT-Q6H PRN Administration Shortness Of Breath Albuterol/Ipratropium 3 ml 11/10/22 09:39 11/12/22 09:24 Ipratropium-Albuterol 3 Ml Neb INHALATION 3 ml RT-QID PRN Administration Shortness Of Breath Or Wheezing Albuterol/Ipratropium 3 ml 11/12/22 13:00 11/21/22 11:37 Ipratropium-Albuterol 3 Ml Neb INHALATION 3 ml RT-TID BRET Administration Apixaban 2.5 mg 11/08/22 21:45 11/21/22 10:03 Apixaban 2.5 Mg Tablet PO 2.5 mg BID BRET Administration Protocol Atorvastatin Calcium 40 mg 11/09/22 09:00 11/21/22 10:03 Atorvastatin 40 Mg Tab PO 40 mg DAILY BRET Administration Budesonide 0.5 mg 11/10/22 20:00 11/21/22 09:28 Budesonide 0.5 Mg/2 Ml Nebu INHALATION 0.5 mg RT-BID BRET Administration Darbepoetin Saad 40 mcg 11/16/22 12:00 11/16/22 12:47 Darbepoetin Saad 40 Mcg/0.4 Ml Syringe SQ 40 mcg Q7D BRET Administration Dorzolamide/Timolol 1 drops 11/08/22 21:45 11/20/22 21:00 Dorzolamide-Timolol 2.23%/0.68 10ml Btl BOTH EYES 1 drops HS BRET Administration Ferrous Sulfate 325 mg 11/09/22 09:00 11/21/22 10:04 Ferrous Sulfate 325 Mg Tab PO 325 mg DAILY BRET Administration Dextrose/Water 1,000 mls @ 50 mls/hr 11/20/22 09:15 11/21/22 10:17 Dextrose 5%-Water Iv Soln IV 50 mls/hr .Q20H BRET Administration Potassium Chloride 10 meq/ IV 100 mls @ 100 mls/hr 11/21/22 13:00 Solution IVPB 11/21/22 18:59 Q1HR BRET Protocol Piperacillin Sod/Tazobactam 100 mls @ 25 mls/hr 11/21/22 15:00 Sod 3.375 gm/ Sodium Chloride IVPB Q8HR BRET Protocol Insulin Aspart 0 unit 11/12/22 12:30 11/21/22 12:41 Insulin Aspart (Novolog) 100 Unit/Ml Vial SQ 6 unit ACHS BRET Administration Protocol Lactulose 30 gm 11/20/22 09:15 11/21/22 12:55 Lactulose 20 Gm/30 Ml Cup PO Not Given TID BRET Latanoprost 1 drops 11/08/22 21:45 11/20/22 21:00 Latanoprost 0.005% Ophth Drops 2.5 Ml Btl BOTH EYES 1 drops HS BRET Administration Miscellaneous Information 1 each 11/08/22 21:35 Magnesium Replacement Protocol 1 Each Misc MISCELLANE DAILY PRN Per Protocol Protocol Miscellaneous Information 1 each 11/10/22 09:26 Potassium Replacement Protocol 1 Each Misc MISCELLANE DAILY PRN Per Protocol Protocol Multivitamins 1 each 11/09/22 09:00 11/21/22 10:03 Multivitamins, Thera 1 Each Tab PO 1 each DAILY BRET Administration Pantoprazole Sodium 40 mg 11/14/22 07:30 11/21/22 05:44 Pantoprazole 40 Mg Tablet PO 40 mg AC-[id number] BRET Administration Potassium Chloride 40 meq 11/11/22 09:00 11/21/22 10:07 Potassium Chloride Er 20 Meq Tab.Er PO Not Given DAILY BRET Prednisone 40 mg 11/14/22 11:15 11/21/22 10:03 Prednisone 20 Mg Tab PO 40 mg DAILY BRET Administration Rifaximin 550 mg 11/19/22 21:00 11/21/22 10:03 Rifaximin 550 Mg Tablet PO 12/19/22 21:01 550 mg BID BRET Administration Protocol Tamsulosin HCl 0.4 mg 11/08/22 21:45 11/20/22 20:59 Tamsulosin 0.4 Mg Cap.Er.24h PO 0.4 mg HS BRET Administration Thiamine HCl 100 mg 11/17/22 17:00 11/21/22 10:04 Thiamine 100 Mg/Ml 2 Ml Vial IVP 100 mg DAILY BRET Administration Tramadol HCl 25 mg 11/20/22 16:39 11/21/22 10:04 Tramadol 50 Mg Tab PO 25 mg Q6H PRN Administration pain Objective - Vital Signs Vital signs: Vital Signs Temp 97.4 F L 11/21/22 11:37 Pulse 86 11/21/22 11:48 Resp 20 11/21/22 11:37 BP 108/66 11/21/22 11:37 Pulse Ox 100 11/21/22 11:37 FiO2 28 11/17/22 08:36 Intake & Output 11/20/22 11/21/22 11/21/22 18:59 06:59 18:59 Intake Total 430 600 Output Total 1921 1126 Balance -1491 -1126 600 Weight 83.5 kg Intake: IV 10 Invasive Line 3 10 Oral 420 600 Output: Urine 0 1125 Stool 1 1 Other: Voiding Method Indwelling Catheter Indwelling Catheter Indwelling Catheter # Bowel Movements 2 - Exam GENERAL: The patient is alert and oriented x3, not in any acute distress. Well developed, well nourished. HEENT: Pupils are round and equally reacting to light. EOMI. No scleral icterus. No conjunctival pallor. Normocephalic, atraumatic. No pharyngeal erythema. No thyromegaly. CARDIOVASCULAR: S1 and S2 present. No murmurs, rubs, or gallops. -PULMONARY: Chest is clear to auscultation, no wheezing , bilateral basal crackl es. -ABDOMEN: Soft, generalized abdominal tenderness, no rebound tenderness or guarding, mildly normoactive bowel sounds. No palpable organomegaly. MUSCULOSKELETAL: No joint swelling or deformity. -EXTREMITIES: No cyanosis, clubbing, patient has bilateral pitting like edema. NEUROLOGICAL: Gross neurological examination did not reveal any focal deficits. SKIN: No rashes. no petechiae. - Labs CBC & Chem 7: 11/21/22 07:33 11/21/22 07:33 Labs: Abnormal Lab Results - Last 24 Hours (Table) 11/20/22 11/20/22 11/20/22 Range/Units 07:42 16:49 18:21 WBC (3.8-10.6) k/uL RBC (4.30-5.90) m/uL Hgb (13.0-17.5) gm/dL Hct (39.0-53.0) % MCV (80.0-100.0) fL MCH (25.0-35.0) pg RDW (11.5-15.5) % Plt Count (150-450) k/uL Neutrophils # (1.3-7.7) k/uL Macrocytosis Sodium (137-145) mmol/L Potassium 2.6 L* (3.5-5.1) mmol/L Chloride (98-107) mmol/L Carbon Dioxide (22-30) mmol/L BUN (9-20) mg/dL Creatinine (0.66-1.25) mg/dL Glucose (74-99) mg/dL POC Glucose (mg/dL) 202 H (70-110) mg/dL Iron 259 H (65-175) UG/DL % Saturation 83.82 H (15.00-50.00) Ferritin 878.0 H (22.0-322.0) ng/mL 11/20/22 11/21/22 11/21/22 Range/Units 19:35 05:42 07:33 WBC 16.2 H (3.8-10.6) k/uL RBC 2.14 L (4.30-5.90) m/uL Hgb 8.1 L (13.0-17.5) gm/dL Hct 24.9 L (39.0-53.0) % MCV 116.2 H (80.0-100.0) fL MCH 37.7 H (25.0-35.0) pg RDW 21.1 H (11.5-15.5) % Plt Count 80 L (150-450) k/uL Neutrophils # 14.1 H (1.3-7.7) k/uL Macrocytosis Marked A Sodium (137-145) mmol/L Potassium (3.5-5.1) mmol/L Chloride (98-107) mmol/L Carbon Dioxide (22-30) mmol/L BUN (9-20) mg/dL Creatinine (0.66-1.25) mg/dL Glucose (74-99) mg/dL POC Glucose (mg/dL) 275 H 197 H (70-110) mg/dL Iron (65-175) UG/DL % Saturation (15.00-50.00) Ferritin (22.0-322.0) ng/mL 11/21/22 11/21/22 11/21/22 Range/Units 07:33 10:38 11:45 WBC (3.8-10.6) k/uL RBC (4.30-5.90) m/uL Hgb (13.0-17.5) gm/dL Hct (39.0-53.0) % MCV (80.0-100.0) fL MCH (25.0-35.0) pg RDW (11.5-15.5) % Plt Count (150-450) k/uL Neutrophils # (1.3-7.7) k/uL Macrocytosis Sodium 148 H (137-145) mmol/L Potassium 2.8 L (3.5-5.1) mmol/L Chloride 109 H (98-107) mmol/L Carbon Dioxide 35 H (22-30) mmol/L BUN 63 H (9-20) mg/dL Creatinine 1.65 H (0.66-1.25) mg/dL Glucose 159 H (74-99) mg/dL POC Glucose (mg/dL) 244 H 283 H (70-110) mg/dL Iron (65-175) UG/DL % Saturation (15.00-50.00) Ferritin (22.0-322.0) ng/mL Microbiology - Last 24 Hours (Table) 11/18/22 14:40 Blood Culture - Preliminary Blood Assessment and Plan Assessment: Acute abdominal tenderness with CT evidence of colonic ileus and possible appendicitis 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 Recent CT of the brain is negative Acute diastolic CHF, currently patient got more contraction Acute kidney injury on chronic kidney disease stage III Acute metabolic alkalosis, possibly exacerbated by contraction alkalosis. moderate to severe mitral regurgitation Severe pulmonary hypertension Mild COPD exacerbation Plan: With the patient nothing by mouth, start Zosyn. Consult surgery service Continue with lactulose, ammonia is back to reference range . Appreciate GI input Continue with D5W Patient currently on torsemide on small dose of Zaroxolyn, smaller dose continue with the prednisone 40 mg Skating Rink Ice Maker in of the case. GI team on the case Pulmonary team on the case and currently on a prednisone 40 mg (pulmonary service signed off the case today 11/21) Sanitation Worker Cleaning Machinery Signed off the egg caser her mentation Labs and medication were reviewed.. Continue same treatment. Continue with symptomatic treatment. Resume home medication. Monitor labs and vitals. DVT and GI prophylaxis. Further recommendations as per clinical course of the patient DVT prophylaxis: Eliquis GI prophylaxis: Protonix PT/OT: Pending Prognosis is guarded
[2022-11-21] MEDS: PIPERACILLIN-TAZOBACTAM 3.375 GM in SODIUM CHLORIDE 0.9% 100 ML IVPB SCH (14:52)
--- NOTE | 2022-11-21 15:21 | P.PN ---
Subjective Progress Note Date: 11/21/22 Principal diagnosis: Hepatic encephalopathy This is a 82-year-old male who presented to the emergency department 11 days ago with complaints of shortness of breath and lower extremity swelling. Patient was admitted with acute on chronic congestive heart failure with acute dyspnea, and severe pulmonary hypertension. He has a past medical history including congestive heart failure, chronic lower extremity edema, chronic stage III kidney disease, diabetes mellitus2, obstructive sleep apnea with CPAP, previous history of CVA, skin cancer, chronic hypoxic respiratory failure, chronic atrial fibrillation, COPD and myodysplasia. His who is at the bedside states that the patient became significantly confused about 2-3 days ago. She states at that time he was started on a new oral medication. He was noted to have a significantly elevated ammonia level at 255, elevated LFTs and underwent a liver ultrasound showing cirrhosis of the liver. Gastroenterology was consulted for cirrhosis of the liver. Patient is currently confused, lethargic, and unable to obtain history from patient. History obtained from patient's and chart. She states he has no previous history of cirrhosis of the liver, no history of hepatic encephalopathy. She does state that he was a heavy drinker daily for about 40 years. She states that he quit drinking about 11 or 12 years ago. 11/20/2022 Patient is seen and examined today as a follow-up. He is more awake and alert. He is alert 1. He was able to eat a little breakfast this morning. HE has no complaints. He is still confused and a poor historian, and unable to give any details on past medical history. WBC 10.6 hemoglobin 7.7 platelet count 72,000 sodium 148 potassium 2.7 BUN 73 creatinine 1.65 total bilirubin 3.6 AST 172 ALT 57 alkaline phosphatase 74 ammonia 21 alpha 1 antitrypsin 148 AFP tumor marker less than 3.0, a hepatitis panel nonreactive 11/21/2022 Patient seen and examined as a follow-up. He is a little more awake today but easily falls asleep. He did eat a low-fat of his breakfast. Complaints of some abdominal discomfort and he has abdominal distention. Nursing reported that he only had 1 bowel movement yesterday 1 through the night and one this morning. Patient was CT of the abdomen and pelvis reported dilated appendix with gas within the tip. Nonspecific surrounding fluid/stranding. Findings could be seen with acute appendicitis. Gas and stool-filled dilated colon and rectum without focal transition point suggestive of an colonic ileus. Infrarenal abdominal aortic aneurysm measuring up to 5.3 cm, hepatic cirrhosis with findings suggestive of portal hypertension with trace ascites and splenic collaterals, right adrenal gland lipid rich adenoma, nonobstructive bilateral renal calculi. The patient is not having any nausea or vomiting he's been afebrile. Objective - Vital Signs Vital signs: Vital Signs Temp 97.9 F 11/21/22 04:00 Pulse 96 11/21/22 09:40 Resp 19 11/21/22 04:00 BP 121/69 11/21/22 04:00 Pulse Ox 100 11/21/22 09:31 FiO2 28 11/17/22 08:36 Intake & Output 11/20/22 11/21/22 11/21/22 18:59 06:59 18:59 Intake Total 430 Output Total 1921 1126 Balance -1491 -1126 Weight 83.5 kg Intake: IV 10 Invasive Line 3 10 Oral 420 Output: Urine 1920 1125 Stool 1 1 Other: Voiding Method Indwelling Catheter Indwelling Catheter - Exam General appearance: The patient is alert, oriented to self only, appears in no acute distress. HET: Head is normocephalic and atraumatic. Conjunctiva pink. Sclera anicteric. Neck: Supple without lymphadenopathy. Abdomen: Soft, obese, mild tenderness, distended with bowel sounds. No guarding or rigidity. Extremities: Normal skin color and turgor. No pedal edema Skin: No rashes, no jaundice Neurological: Alert and oriented to self only. Still somewhat confused, unable to give any significant history. - Labs CBC & Chem 7: 11/21/22 07:33 11/21/22 07:33 Labs: Abnormal Lab Results - Last 24 Hours (Table) 11/20/22 11/20/22 11/20/22 Range/Units 07:42 11:31 16:49 WBC (3.8-10.6) k/uL RBC (4.30-5.90) m/uL Hgb (13.0-17.5) gm/dL Hct (39.0-53.0) % MCV (80.0-100.0) fL MCH (25.0-35.0) pg RDW (11.5-15.5) % Plt Count (150-450) k/uL Neutrophils # (1.3-7.7) k/uL Macrocytosis Sodium (137-145) mmol/L Potassium (3.5-5.1) mmol/L Chloride (98-107) mmol/L Carbon Dioxide (22-30) mmol/L BUN (9-20) mg/dL Creatinine (0.66-1.25) mg/dL Glucose (74-99) mg/dL POC Glucose (mg/dL) 257 H 202 H (70-110) mg/dL Iron 259 H (65-175) UG/DL % Saturation 83.82 H (15.00-50.00) Ferritin 878.0 H (22.0-322.0) ng/mL 11/20/22 11/20/22 11/21/22 Range/Units 18:21 19:35 05:42 WBC (3.8-10.6) k/uL RBC (4.30-5.90) m/uL Hgb (13.0-17.5) gm/dL Hct (39.0-53.0) % MCV (80.0-100.0) fL MCH (25.0-35.0) pg RDW (11.5-15.5) % Plt Count (150-450) k/uL Neutrophils # (1.3-7.7) k/uL Macrocytosis Sodium (137-145) mmol/L Potassium 2.6 L* (3.5-5.1) mmol/L Chloride (98-107) mmol/L Carbon Dioxide (22-30) mmol/L BUN (9-20) mg/dL Creatinine (0.66-1.25) mg/dL Glucose (74-99) mg/dL POC Glucose (mg/dL) 275 H 197 H (70-110) mg/dL Iron (65-175) UG/DL % Saturation (15.00-50.00) Ferritin (22.0-322.0) ng/mL 11/21/22 11/21/22 Range/Units 07:33 07:33 WBC 16.2 H (3.8-10.6) k/uL RBC 2.14 L (4.30-5.90) m/uL Hgb 8.1 L (13.0-17.5) gm/dL Hct 24.9 L (39.0-53.0) % MCV 116.2 H (80.0-100.0) fL MCH 37.7 H (25.0-35.0) pg RDW 21.1 H (11.5-15.5) % Plt Count 80 L (150-450) k/uL Neutrophils # 14.1 H (1.3-7.7) k/uL Macrocytosis Marked A Sodium 148 H (137-145) mmol/L Potassium 2.8 L (3.5-5.1) mmol/L Chloride 109 H (98-107) mmol/L Carbon Dioxide 35 H (22-30) mmol/L BUN 63 H (9-20) mg/dL Creatinine 1.65 H (0.66-1.25) mg/dL Glucose 159 H (74-99) mg/dL POC Glucose (mg/dL) (70-110) mg/dL Iron (65-175) UG/DL % Saturation (15.00-50.00) Ferritin (22.0-322.0) ng/mL Microbiology - Last 24 Hours (Table) 11/18/22 14:40 Blood Culture - Preliminary Blood Assessment and Plan (1) Liver cirrhosis Narrative/Plan: 82-year-old male who presented with shortness of breath with acute on chronic congestive heart failure with history of multiple comorbidities who recently became confused, with altered mental status changes. He underwent a CT of the brain that showed no acute findings. He did have some mild elevation in his bilirubin and AST with history of alcohol abuse. Ammonia level was drawn and came back at 255. He was started on lactulose 200 mg every 6 hours per rectum with improvement in his ammonia level to 48 today. No prior history of cirrhosis of the liver hepatic encephalopathy however reports long-standing history of alcohol dependency of 40 years. Ultrasound of the liver does report nodular hepatic contour which may reflect underlying cirrhotic liver disease. Patient likely has cirrhosis of the liver from many years of alcohol abuse, with hepatic encephalopathy however need to consider other possible etiologies. Will get AFP, hepatitis panel, alpha-1 antitrypsin, DAVID. Mentation slowly improving. Will need to continue outpatient monitoring and continue with lactulose. Add Xifaxin. Liver serologies workup negative to date, as well as hepatitis panel nonreactive. 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 Current Visit: Yes Status: Acute Code(s): K74.60 - UNSPECIFIED CIRRHOSIS OF LIVER SNOMED Code(s): 95294797 (2) Hepatic encephalopathy Narrative/Plan: Continue lactulose, will transition physician to oral. Continue Xifaxan as ordered. Consider neurology consultation for further evaluation of altered mental status changes. Patient had prolonged symptoms of altered mental status despite improvement in ammonia levels. Current Visit: Yes Status: Acute Code(s): K76.82 - HEPATIC ENCEPHALOPATHY SNOMED Code(s): 62485569 (3) Congestive heart failure Current Visit: Yes Status: Acute Code(s): I50.9 - HEART FAILURE, UNSPECIFIED SNOMED Code(s): 34172591 (4) Atrial fibrillation Current Visit: Yes Status: Acute Code(s): I48.91 - UNSPECIFIED ATRIAL FIBRILLATION SNOMED Code(s): 02065864 (5) Dyspnea Current Visit: Yes Status: Acute Code(s): R06.00 - DYSPNEA, UNSPECIFIED SNOMED Code(s): 663057750 (6) Chronic kidney disease Current Visit: Yes Status: Acute Code(s): N18.9 - CHRONIC KIDNEY DISEASE, UNSPECIFIED SNOMED Code(s): 682242482 (7) MDS (myelodysplastic syndrome) Current Visit: No Status: Chronic Priority: High Code(s): D46.9 - MYELODYSPLASTIC SYNDROME, UNSPECIFIED SNOMED Code(s): 887548437 (8) Hypokalemia Narrative/Plan: Replace potassium per protocol Current Visit: Yes Status: Acute Code(s): E87.6 - HYPOKALEMIA SNOMED Code(s): 18957892 Plan: 1. Continue symptomatic and supportive care 2. Lactulose 30 g by mouth 3 times a day, titrate to have 3-4 bowel movements daily 3. Add Xifaxin 550 mg BID 4. Daily CBC, CMP, ammonia. 5. Continue alcohol abstinence and avoid hepatotoxic medications 6. Give fleets enema 1 dose 7. Patient will need outpatient monitoring with gastroenterology 8. Consider neurology consultation for prolonged altered mental status despite improved ammonia levels 9. Continue medical management per primary team and multiple consultants Thank you for this consultation, we'll continue to follow. Dr. Devan Moody I agree with the dictator's note, documented as a scribe by Mary West.
--- NOTE | 2022-11-21 15:29 | P.GSCN ---
History of Present Illness Consult date: 11/21/22 History of present illness: CHIEF COMPLAINT: Shortness of breath Reason for consult appendicitis/ileus HISTORY OF PRESENT ILLNESS: This is a 82-year-old male who presented to hospital with complaints of worsening shortness of breath that evidence of acute CHF exacerbation. Patient also had worsening mental status was positive evidence of acute hepatic encephalopathy suspected to his liver cirrhosis and history of alcohol abuse. Patient also has a history of moderate to severe pulmonary hypertension and moderate to severe mitral regurgitation. Patient had been receiving lactulose enemas due to the elevated ammonia level. He had been stooling. He had 2 bowel movements yesterday. This morning patient's abdomen was prepped reported to be more distended. A computed tomography scan of the abdomen and pelvis ordered that showed dilated appendix with gas within the tip and some nonspecific surrounding fluid stranding that could be seen with acute appendicitis. There was also evidence of a colonic ileus. Patient was made nothing by mouth. And surgical service was consulted. Patient is confused. And unable to obtain permission from patient. Patient has been afebrile. He is on Eliquis for Afib. No prior abdominal surgical history Patient seen and examined with Dr. Blancas PAST MEDICAL HISTORY: Heart Failure, CVA, Diabetes Mellitus, Myocardial Infarction (AR), Osteoarthritis (OA), Prostate Disorder, Sleep Apnea/CPAP/BIPAP PAST SURGICAL HISTORY: See below MEDICATIONS: See below ALLERGIES: See below SOCIAL HISTORY: No illicit drug use. REVIEW OF SYSTEMS: CONSTITUTIONAL: Denies fever or chills. HEENT: Denies blurred vision, vision changes, or eye pain. Denies hemoptysis CARDIOVASCULAR: Denies chest pain or pressure. RESPIRATORY: No shortness of breath. GASTROINTESTINAL: See HPI for pertinent findings HEMATOLOGIC: Denies bleeding disorders. GENITOURINARY: Denies any blood in urine or increased urinary frequency. SKIN: Denies pruitis. Denies rash. PHYSICAL EXAM: VITAL SIGNS: Reviewed GENERAL: Well-developed in no acute distress. HEENT: Scleral icterus Extraocular movements grossly intact. Moist buccal mucosa. Head is atraumatic, normocephalic. No nasal drainage. ABDOMEN: Distended diffuse tenderness. Tender right lower quadrant. NEUROLOGIC: Confused. Lethargic. istant note has been reviewed by physician. Signing provider agrees with the documented findings, assessment, and plan of care. Skin. Jaundiced LABS: WBC is up from 10.6-16.2 Hgb is 8.1 platelets 80 Sodium 148 potassium 2.8 creatinine 1.65 LFTs and total bilirubin elevated total bili 3.6 Hepatitis panel nonreactive Imaging Computed tomography scan of the pelvis dilated appendix with gas within the tip. There is some nonspecific surrounding fluid/stranding. Findings could be seen with acute appendicitis. Clinical correlation is recommended. Gas and stool filled dilated colon and rectum without focal transition point suggested of a colonic ileus. Infrarenal abdominal aortic aneurysm measuring up to 5.3 cm. Hepatic cirrhosis with findings suggestive of portal hypertension with trace ascites and splenic collaterals. Right adrenal gland lipid rich adenoma. Nonspecific bilateral renal calculi Liver ultrasound nodular hepatic contour may reflect underlying cirrhotic liver disease Assessment 1. Colonic ileus 2. Possible acute appendicitis 3. 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 Acute diastolic CHF exacerbation 5. A. fib on eliquis 6. Hypokalemia 7. Acute kidney injury 8. Hypernatremia Plan -Start IV antibiotics -Keep patient nothing by mouth -Continue supportive care -Patient is considered high risk for any surgical intervention. We'll continue to monitor on IV antibiotics -Hold Eliquis in case surgical intervention warranted -Potassium being corrected -Acute kidney injury and hyponatremia being managed by nephrology Thank you for this consultation Physician Marketing Ambassador note has been reviewed by physician. Signing provider agrees with the documented findings, assessment, and plan of care. Past Medical History Past Medical History: Cancer, Heart Failure, CVA/TIA, Diabetes Mellitus, Myocardial Infarction (AR), Osteoarthritis (OA), Prostate Disorder, Sleep Apnea/CPAP/BIPAP Additional Past Medical History / Comment(s): 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 COLON POLYPS, SKIN CANCER,uses cpap, new home o2 Last Myocardial Infarction Date:: 1999 History of Any Multi-Drug Resistant Organisms: None Reported Past Surgical History: Back Surgery, Joint Replacement, Orthopedic Surgery, Tonsillectomy Additional Past Surgical History / Comment(s): ORIF LEFT SHOULDER. TOTAL LEFT KNEE. BILATERAL CATARACTS/IMPLANTS. Past Anesthesia/Blood Transfusion Reactions: No Reported Reaction Additional Past Anesthesia/Blood Transfusion Reaction / Comm: no problems with prior with platelet infusion Date of Last Stent Placement:: 1999 Past Psychological History: No Psychological Hx Reported Smoking Status: Former smoker Past Alcohol Use History: Occasional Additional Past Alcohol Use History / Comment(s): SMOKED FOR 30 YRS, QUIT IN 1987, 2PPD. Past Drug Use History: None Reported - Past Family History Sister(s) Family Medical History: Cancer Additional Family Medical History / Comment(s): UTERINE CANCER. Brother(s) Family Medical History: Cancer Additional Family Medical History / Comment(s): PROSTATE CANCER. Medications and Allergies Home Medications Medication Instructions Recorded Confirmed Type Cyanocobalamin [Vitamin B-12] 500 mcg PO DAILY 12/11/17 11/08/22 History Latanoprost Ophth [Xalatan 0.005%] 1 drop BOTH EYES HS 12/11/17 11/08/22 History Multivit-Min/FA/Lycopen/Lutein 1 tab PO DAILY 07/12/20 11/08/22 History [Centrum Silver Men Tablet] Tamsulosin [Flomax] 0.4 mg PO HS 07/12/20 11/08/22 History Ferrous Sulfate [Iron (65 MG 325 mg PO DAILY 07/25/22 11/08/22 History Elemental)] Pioglitazone [Actos] 30 mg PO DAILY 07/25/22 11/08/22 History lisinopriL 2.5 mg PO DAILY 07/25/22 11/08/22 History Apixaban [Eliquis] 2.5 mg PO BID #60 tab 10/01/22 11/08/22 Rx Atorvastatin [Lipitor] 40 mg PO DAILY #90 tablet 10/01/22 11/08/22 Rx Albuterol Inhaler [Ventolin Hfa 2 puff INHALATION RT-Q6H PRN 11/08/22 11/08/22 History Inhaler] Dorzolamide/Timolol/Pf 1 drop BOTH EYES HS 11/08/22 11/08/22 History [Dorzolamide 2%-Timolol 0.5%] Furosemide [Lasix] 40 mg PO BID@0900,1600 11/08/22 11/08/22 History Allergies Allergy/AdvReac Type Severity Reaction Status Date / Time No Known Allergies Allergy Verified 11/08/22 17:53 Surgical - Exam Vital Signs Temp Pulse Resp BP Pulse Ox 98.5 F 97 28 H 132/62 95 11/08/22 14:13 11/08/22 14:13 11/08/22 14:13 11/08/22 14:13 11/08/22 14:13 Results - Labs 11/21/22 07:33 11/21/22 07:33 Abnormal Lab Results - Last 24 Hours (Table) 11/20/22 11/20/22 11/20/22 Range/Units 07:42 16:49 18:21 WBC (3.8-10.6) k/uL RBC (4.30-5.90) m/uL Hgb (13.0-17.5) gm/dL Hct (39.0-53.0) % MCV (80.0-100.0) fL MCH (25.0-35.0) pg RDW (11.5-15.5) % Plt Count (150-450) k/uL Neutrophils # (1.3-7.7) k/uL Macrocytosis Sodium (137-145) mmol/L Potassium 2.6 L* (3.5-5.1) mmol/L Chloride (98-107) mmol/L Carbon Dioxide (22-30) mmol/L BUN (9-20) mg/dL Creatinine (0.66-1.25) mg/dL Glucose (74-99) mg/dL POC Glucose (mg/dL) 202 H (70-110) mg/dL Iron 259 H (65-175) UG/DL % Saturation 83.82 H (15.00-50.00) Ferritin 878.0 H (22.0-322.0) ng/mL 11/20/22 11/21/22 11/21/22 Range/Units 19:35 05:42 07:33 WBC 16.2 H (3.8-10.6) k/uL RBC 2.14 L (4.30-5.90) m/uL Hgb 8.1 L (13.0-17.5) gm/dL Hct 24.9 L (39.0-53.0) % MCV 116.2 H (80.0-100.0) fL MCH 37.7 H (25.0-35.0) pg RDW 21.1 H (11.5-15.5) % Plt Count 80 L (150-450) k/uL Neutrophils # 14.1 H (1.3-7.7) k/uL Macrocytosis Marked A Sodium (137-145) mmol/L Potassium (3.5-5.1) mmol/L Chloride (98-107) mmol/L Carbon Dioxide (22-30) mmol/L BUN (9-20) mg/dL Creatinine (0.66-1.25) mg/dL Glucose (74-99) mg/dL POC Glucose (mg/dL) 275 H 197 H (70-110) mg/dL Iron (65-175) UG/DL % Saturation (15.00-50.00) Ferritin (22.0-322.0) ng/mL 11/21/22 11/21/22 11/21/22 Range/Units 07:33 10:38 11:45 WBC (3.8-10.6) k/uL RBC (4.30-5.90) m/uL Hgb (13.0-17.5) gm/dL Hct (39.0-53.0) % MCV (80.0-100.0) fL MCH (25.0-35.0) pg RDW (11.5-15.5) % Plt Count (150-450) k/uL Neutrophils # (1.3-7.7) k/uL Macrocytosis Sodium 148 H (137-145) mmol/L Potassium 2.8 L (3.5-5.1) mmol/L Chloride 109 H (98-107) mmol/L Carbon Dioxide 35 H (22-30) mmol/L BUN 63 H (9-20) mg/dL Creatinine 1.65 H (0.66-1.25) mg/dL Glucose 159 H (74-99) mg/dL POC Glucose (mg/dL) 244 H 283 H (70-110) mg/dL Iron (65-175) UG/DL % Saturation (15.00-50.00) Ferritin (22.0-322.0) ng/mL Microbiology - Last 24 Hours (Table) 11/18/22 14:40 Blood Culture - Preliminary Blood Diabetes panel 11/20/22 11/21/22 Range/Units 18:21 07:33 Sodium 148 H (137-145) mmol/L Potassium 2.6 L* 2.8 L (3.5-5.1) mmol/L Chloride 109 H (98-107) mmol/L Carbon Dioxide 35 H (22-30) mmol/L BUN 63 H (9-20) mg/dL Creatinine 1.65 H (0.66-1.25) mg/dL Glucose 159 H (74-99) mg/dL Calcium 9.2 (8.4-10.2) mg/dL Calcium panel 11/21/22 Range/Units 07:33 Calcium 9.2 (8.4-10.2) mg/dL Pituitary panel 11/20/22 11/21/22 Range/Units 18:21 07:33 Sodium 148 H (137-145) mmol/L Potassium 2.6 L* 2.8 L (3.5-5.1) mmol/L Chloride 109 H (98-107) mmol/L Carbon Dioxide 35 H (22-30) mmol/L BUN 63 H (9-20) mg/dL Creatinine 1.65 H (0.66-1.25) mg/dL Glucose 159 H (74-99) mg/dL Calcium 9.2 (8.4-10.2) mg/dL Adrenal panel 11/20/22 11/21/22 Range/Units 18:21 07:33 Sodium 148 H (137-145) mmol/L Potassium 2.6 L* 2.8 L (3.5-5.1) mmol/L Chloride 109 H (98-107) mmol/L Carbon Dioxide 35 H (22-30) mmol/L BUN 63 H (9-20) mg/dL Creatinine 1.65 H (0.66-1.25) mg/dL Glucose 159 H (74-99) mg/dL Calcium 9.2 (8.4-10.2) mg/dL
[2022-11-21 16:55] LABS: Glucose,Whole Blood 272 mg/dL (70-110)
[2022-11-21] MEDS: TAMSULOSIN 0.4 MG CAP.ER.24H PO SCH (19:52)
[2022-11-21 20:03] LABS: Glucose,Whole Blood 240 mg/dL (70-110)
[2022-11-21] MEDS: DORZOLAMIDE-TIMOLOL 2.23%/0.68 10ML BTL BOTH EYES SCH (20:26)
[2022-11-21] MEDS: LATANOPROST 0.005% OPHTH DROPS 2.5 ML BTL BOTH EYES SCH (20:26)
[2022-11-22] MEDS: PIPERACILLIN-TAZOBACTAM 3.375 GM in SODIUM CHLORIDE 0.9% 100 ML IVPB SCH ×4 (00:39→23:49)
[2022-11-22] MEDS: PANTOPRAZOLE 40 MG TABLET PO SCH (05:14)
--- NOTE | 2022-11-22 05:41 | XR ---
EXAMINATION TYPE: XR chest 1V DATE OF EXAM: 11/22/2022 CLINICAL HISTORY: NG tube placement. TECHNIQUE: Single AP portable upright view of the chest is obtained. COMPARISON: Chest x-ray from 4 days earlier FINDINGS: New nasogastric tube projects below diaphragm. Cardiomegaly redemonstrated. Chronic parenchymal changes again seen without new focal airspace opacit y, pleural effusion, or pneumothorax identified bilaterally. Osseous structures are intact. IMPRESSION: As above.
[2022-11-22] MEDS: INSULIN ASPART (NovoLOG) 100 UNIT/ML VIAL SQ SCH ×4 (06:16→20:23)
[2022-11-22 06:17] LABS: Glucose,Whole Blood 188 mg/dL (70-110)
[2022-11-22] MEDS: BUDESONIDE 0.5 MG/2 ML NEBU INHALATION SCH ×2 (08:33→20:39)
[2022-11-22] MEDS: IPRATROPIUM-ALBUTEROL 3 ML NEB INHALATION SCH ×3 (08:33→20:39)
[2022-11-22 08:45] LABS: ALT 50 U/L (4-49); AST 87 U/L (17-59); African American GFR (CKD) 41 (>60 ml/min/1.73 sqM); Albumin 2.7 g/dL (3.5-5.0); Alkaline Phosphatase 73 U/L (38-126); Anion Gap 4 mmol/L; Blood Urea Nitrogen 59 mg/dL (9-20); Calcium 8.4 mg/dL (8.4-10.2); Carbon Dioxide 30 mmol/L (22-30); Chloride 102 mmol/L (98-107); Glucose 337 mg/dL (74-99); Non-African American GFR(CKD) 36 (>60 ml/min/1.73 sqM); Potassium 3.1 mmol/L (3.5-5.1); Sodium 136 mmol/L (137-145); Total Bilirubin 2.5 mg/dL (0.2-1.3); Total Protein 6.4 g/dL (6.3-8.2)
[2022-11-22 09:02] LABS: Anisocytosis Moderate; Basophils # (A) 0.1 k/uL (0-0.2); Basophils % (A) 0 %; Eosinophils # (A) 0.1 k/uL (0-0.7); Eosinophils % (A) 1 %; HCT 24.2 % (39.0-53.0); HGB 7.5 gm/dL (13.0-17.5); Hypochromasia Marked; Lymphocytes # (A) 1.2 k/uL (1.0-4.8); Lymphocytes % (A) 5 %; MCH 37.6 pg (25.0-35.0); MCHC 30.9 g/dL (31.0-37.0); MCV 121.6 fL (80.0-100.0); Macrocytosis Marked; Mean Platelet Volume 13.5; Monocytes # (A) 0.8 k/uL (0-1.0); Monocytes % (A) 3 %; Neutrophils # (A) 21.3 k/uL (1.3-7.7); Neutrophils % (A) 89 %; RBC 1.99 m/uL (4.30-5.90); RDW 21.2 % (11.5-15.5); WBC 23.9 k/uL (3.8-10.6)
[2022-11-22 09:28] LABS: Large Platelets Present
[2022-11-22 09:29] LABS: Platelet Count 73 k/uL (150-450)
[2022-11-22] MEDS: MULTIVITAMINS, THERA 1 EACH TAB PO SCH (10:11)
[2022-11-22] MEDS: FERROUS SULFATE 325 MG TAB PO SCH (10:12)
[2022-11-22] MEDS: THIAMINE 100 MG/ML 2 ML VIAL IVP SCH (10:12)
[2022-11-22] MEDS: predniSONE 20 MG TAB PO SCH (10:12)
[2022-11-22] MEDS: RIFAXIMIN 550 MG TABLET PO SCH ×2 (10:12→20:23)
[2022-11-22] MEDS: POTASSIUM CHLORIDE ER 20 MEQ TAB.ER PO SCH ×3 (10:12→16:43)
[2022-11-22] MEDS: ATORVASTATIN 40 MG TAB PO SCH (10:12)
--- NOTE | 2022-11-22 11:17 | P.PN ---
Subjective This is a pleasant 82 years old male with multiple medical problems including history of heart failure presents with worsening dyspnea and leg swelling on and he was found with fluid overload secondary to diastolic CHF, echocardiogram from 09/2022 showing ejection fraction 55%. Currently linotype worker signed off the case and patient being monitored closely by nephrology team. He remains on Lasix drip 10 mg/h, creatinine 1.4, 1.6 and 2.1. Discuss case with nephrology team who recommended to keep the Lasix drip for now. Pulmonary team on the case for mild COPD exacerbation and currently on a prednisone 40 mg. Hemoglobin 7.8. 11/17/2022 patient CHF and fluid overload improving, his oxygen saturation is acceptable and wants only with minimal crepitation mainly on the right side however he still have 2+ leg edema. However patient developed more alkalosis therefore Lasix drip was stopped and started on torsemide while the dose for Zaroxolyn was lowered to 2.5 mg. Creatinine is stable at 2.0 compared to 1.4 on admission. However patient become more confused today most likely secondary to metabolic encephalopathy and toxic encephalopathy. No recent fall. Patient fell about 3 days ago at that time CT of the brain was negative. Workup showing ammonia level is high at 255 and lactulose is added. We will continue neuro check and consider repeat CT of the brain condition worsens Pressure applied with sponge gel to bleeding superficial ulcer on the right forearm. 11/18/2022 Patient still confused and sleepy this morning from yesterday he got worse significantly. There is no new symptoms, he slipped with the And tachycardic. He had low-grade temperature of 99.8. Leukocytosis worsened 10.5 up to 17,000. Chest x-ray and urinalysis were repeated they were negative for acute process. Risks of flaps looks stable. Creatinine 1.9 which is a stable but higher than baseline because he was on Lasix drip. The sixth rib. Now, torsemide is only once daily. Also patient started on normal saline 75 mL/h Patient continued on prednisone 40 mg once a Eliquis area We will send blood culture and check liver ultrasound as liver enzymes and bilirubin only mildly elevated although this is not very new. Plan discussed with staff and bedside nurse more than once. 11/19/2022 Patient slightly improving regarding his mentation, he still confused sleepy and does not respond to verbal or tactile stimuli but he opens his eyes from moving in bed to some degree which she was not doing its yesterday. His ammonia level is elevated yesterday to 55 and liver ultrasound showing possible liver cirrhosis which is most likely related to alcoholic liver cirrhosis. GI team. He is started on lactulose and ammonia level improved and 48. Also he remains on normal saline at 50 mL/h, alert from 75 mm/h for acute kidney injury and metabolic abnormalities including contraction alkalosis. Check labs tomorrow 11/20/2022 Patient is more awake and interactive significantly better than yesterday and he can answer some questions but still confused and not quite back to his baseline. However patient denies any pain or specific symptoms. He has frequent bowel movements. GI team on the case for his hepatic encephalopathy and his lactulose dose was increased to 30 mg 3 times a day and rifaximin is added. Sodium 148 and patient started on D5 W Creatinine improving down to 1.6. Patient remains on prednisone 40 mg 11/21/2022 Patient today sitting up in bed with sitter at bedside for safety, patient still little confused to the surrounding but improved compared to yesterday. Patient is not eating well he starts complaining from abdominal pain and tenderness today,(yesterday his abdomen was not tender on exam) on exam he had distention and tenderness periumbilical area, computed tomography scan of the abdomen and pelvis was obtained showing gas appendix suspicious for appendicitis and dilated bowel with no transitions zone suspicious for ileus. Patient hemodynamically stable and is afebrile, tachycardia improved. Ammonia improved to baseline yesterday. Creatinine is stable and improved down to 1.6. Hemoglobin is stable at 8.1 and he has mild leukocytosis. Patient was started on Zosyn with surgery to consult I discussed the case with Gen. surgery evaluated the patient 11/22/2022 Patient today still tired and lethargic. But he wakes up and talk to family and at bedside and mentation improved since she started on lactulose. However he developed ileus and abdominal tenderness yesterday and there was suspicion of gas and the appendix suspicious for acute appendicitis, I discussed the case with surgery team and Dr. Begum we are not sure if this is a case of acute appendicitis however it is not entirely excluded or abdominal sepsis especially in view of his abdominal tenderness ileus and abdominal distention. Patient is not able to eat. NG tube was placed in the morning but no output. His labs showing worsening leukocytosis up to 23,000, hemoglobin slightly less 7.5, platelets slightly less at 70 3K, creatinine is slightly up 1.7. Because of this was started on Zosyn yesterday for covering gram-negative and an aerobic microorganisms and we are going to add Levaquin intravenously for better gram-negative coverage given his worsening situation area Of note ammonia level down to 11 and sodium level improved to normal at 136 today. He is hemodynamically stable and afebrile. He was started on normal saline 50 mL/h. Also continued on prednisone 40 mg, rifaximin 550 mg which is another antibiotic. He is still on lactulose 30 g and breathing treatment I talked to the at bedside that's is a very good surgical candidate if surgical intervention is warranted given his a newly diagnosed liver cirrhosis and decompensated liver function Avalide verbalized understanding and acceptance this information. Also she understands that his prognosis is very guarded. Patient is high-risk for deterioration despite treatment. And I told the even if his 5 this episode given his multiple progressive problems with the complication make his long-term prognosis poor as well. She verbalized u nderstanding and acceptance. Currently patient already no good Diuretics are held Alk phos was held Discussed with staff Active Medications Generic Name Dose Route Start Last Admin Trade Name Freq PRN Reason Stop Dose Admin Albuterol Sulfate 2.5 mg 11/08/22 21:35 11/11/22 09:21 Albuterol Nebulized 2.5 Mg/3 Ml INHALATION 2.5 mg RT-Q6H PRN Administration Shortness Of Breath Albuterol/Ipratropium 3 ml 11/10/22 09:39 11/12/22 09:24 Ipratropium-Albuterol 3 Ml Neb INHALATION 3 ml RT-QID PRN Administration Shortness Of Breath Or Wheezing Albuterol/Ipratropium 3 ml 11/12/22 13:00 11/22/22 08:33 Ipratropium-Albuterol 3 Ml Neb INHALATION 3 ml RT-TID BRET Administration Atorvastatin Calcium 40 mg 11/09/22 09:00 11/22/22 10:12 Atorvastatin 40 Mg Tab PO 40 mg DAILY BRET Administration Budesonide 0.5 mg 11/10/22 20:00 11/22/22 08:33 Budesonide 0.5 Mg/2 Ml Nebu INHALATION 0.5 mg RT-BID BRET Administration Darbepoetin Saad 40 mcg 11/16/22 12:00 11/16/22 12:47 Darbepoetin Saad 40 Mcg/0.4 Ml Syringe SQ 40 mcg Q7D BRET Administration Dorzolamide/Timolol 1 drops 11/08/22 21:45 11/21/22 20:26 Dorzolamide-Timolol 2.23%/0.68 10ml Btl BOTH EYES 1 drops HS BRET Administration Ferrous Sulfate 325 mg 11/09/22 09:00 11/22/22 10:12 Ferrous Sulfate 325 Mg Tab PO 325 mg DAILY BRET Administration Piperacillin Sod/Tazobactam 100 mls @ 25 mls/hr 11/21/22 15:00 11/22/22 10:06 Sod 3.375 gm/ Sodium Chloride IVPB 25 mls/hr Q8HR BRET Administration Protocol Sodium Chloride 1,000 mls @ 50 mls/hr 11/22/22 10:30 Saline 0.45% IV .Q20H BRET Levofloxacin 500 mg/ IV 100 mls @ 100 mls/hr 11/22/22 12:00 Solution IVPB 11/22/22 18:00 Q24H BRET Protocol Insulin Aspart 0 unit 11/12/22 12:30 11/22/22 06:16 Insulin Aspart (Novolog) 100 Unit/Ml Vial SQ Not Given ACHS BRET Protocol Lactulose 30 gm 11/20/22 09:15 11/21/22 19:52 Lactulose 20 Gm/30 Ml Cup PO Not Given TID BRET Latanoprost 1 drops 11/08/22 21:45 11/21/22 20:26 Latanoprost 0.005% Ophth Drops 2.5 Ml Btl BOTH EYES 1 drops HS BRET Administration Miscellaneous Information 1 each 11/08/22 21:35 Magnesium Replacement Protocol 1 Each Misc MISCELLANE DAILY PRN Per Protocol Protocol Miscellaneous Information 1 each 11/10/22 09:26 Potassium Replacement Protocol 1 Each Misc MISCELLANE DAILY PRN Per Protocol Protocol Miscellaneous Information 1 each 11/21/22 14:11 Potassium Replacement Protocol 1 Each Misc MISCELLANE DAILY PRN Per Protocol Protocol Multivitamins 1 each 11/09/22 09:00 11/22/22 10:11 Multivitamins, Thera 1 Each Tab PO 1 each DAILY BRET Administration Pantoprazole Sodium 40 mg 11/14/22 07:30 11/22/22 05:14 Pantoprazole 40 Mg Tablet PO Not Given [facility] Potassium Chloride 40 meq 11/11/22 09:00 11/22/22 10:12 Potassium Chloride Er 20 Meq Tab.Er PO 40 meq DAILY BRET Administration Prednisone 40 mg 11/14/22 11:15 11/22/22 10:12 Prednisone 20 Mg Tab PO 40 mg DAILY BRET Administration Rifaximin 550 mg 11/19/22 21:00 11/22/22 10:12 Rifaximin 550 Mg Tablet PO 12/19/22 21:01 550 mg BID BRET Administration Protocol Tamsulosin HCl 0.4 mg 11/08/22 21:45 11/21/22 19:52 Tamsulosin 0.4 Mg Cap.Er.24h PO Not Given [facility] Thiamine HCl 100 mg 11/17/22 17:00 11/22/22 10:12 Thiamine 100 Mg/Ml 2 Ml Vial IVP 100 mg DAILY BRET Administration Tramadol HCl 25 mg 11/20/22 16:39 11/21/22 10:04 Tramadol 50 Mg Tab PO 25 mg Q6H PRN Administration pain Objective - Vital Signs Vital signs: Vital Signs Temp 98.4 F 11/22/22 08:00 Pulse 88 11/22/22 08:48 Resp 18 11/22/22 08:48 BP 121/63 11/22/22 08:00 Pulse Ox 99 11/22/22 08:33 FiO2 28 11/17/22 08:36 Intake & Output 11/21/22 11/22/22 11/22/22 18:59 06:59 18:59 Intake Total 600 Output Total 550 425 Balance 50 -425 Intake: Oral 600 Output: Urine 550 425 Uretheral (Ruiz) 550 Other: Voiding Method Indwelling Catheter Indwelling Catheter # Bowel Movements 2 1 - Exam GENERAL: The patient is drowsy and tired, not in any acute distress. Well developed, well nourished. HEENT: Pupils are round and equally reacting to light. EOMI. No scleral icterus. No conjunctival pallor. Normocephalic, atraumatic. No pharyngeal erythema. No thyromegaly. CARDIOVASCULAR: S1 and S2 present. No murmurs, rubs, or gallops. -PULMONARY: Chest is clear to auscultation, no wheezing , bilateral basal crackles. -ABDOMEN: Tense, generalized abdominal tenderness, no rebound tenderness or guarding, distended, mildly normoactive bowel sounds. No palpable organomegaly. NG tube in place with no significant output MUSCULOSKELETAL: No joint swelling or deformity. -EXTREMITIES: No cyanosis, clubbing, patient has bilateral pitting leg edema. NEUROLOGICAL: Gross neurological examination did not reveal any focal deficits. SKIN: No rashes. no petechiae. - Labs CBC & Chem 7: 11/22/22 07:36 11/22/22 07:36 Labs: Abnormal Lab Results - Last 24 Hours (Table) 11/21/22 11/21/22 11/21/22 Range/Units 11:45 16:53 20:00 WBC (3.8-10.6) k/uL RBC (4.30-5.90) m/uL Hgb (13.0-17.5) gm/dL Hct (39.0-53.0) % MCV (80.0-100.0) fL MCH (25.0-35.0) pg MCHC (31.0-37.0) g/dL RDW (11.5-15.5) % Plt Count (150-450) k/uL Neutrophils # (1.3-7.7) k/uL Macrocytosis Sodium (137-145) mmol/L Potassium (3.5-5.1) mmol/L BUN (9-20) mg/dL Creatinine (0.66-1.25) mg/dL Glucose (74-99) mg/dL POC Glucose (mg/dL) 283 H 272 H 240 H (70-110) mg/dL Total Bilirubin (0.2-1.3) mg/dL AST (17-59) U/L ALT (4-49) U/L Albumin (3.5-5.0) g/dL 11/21/22 11/22/22 11/22/22 Range/Units 21:11 06:15 07:36 WBC (3.8-10.6) k/uL RBC (4.30-5.90) m/uL Hgb (13.0-17.5) gm/dL Hct (39.0-53.0) % MCV (80.0-100.0) fL MCH (25.0-35.0) pg MCHC (31.0-37.0) g/dL RDW (11.5-15.5) % Plt Count (150-450) k/uL Neutrophils # (1.3-7.7) k/uL Macrocytosis Sodium (137-145) mmol/L Potassium 3.2 L 3.1 L (3.5-5.1) mmol/L BUN (9-20) mg/dL Creatinine (0.66-1.25) mg/dL Glucose (74-99) mg/dL POC Glucose (mg/dL) 188 H (70-110) mg/dL Total Bilirubin (0.2-1.3) mg/dL AST (17-59) U/L ALT (4-49) U/L Albumin (3.5-5.0) g/dL 11/22/22 11/22/22 Range/Units 07:36 07:36 WBC 23.9 H (3.8-10.6) k/uL RBC 1.99 L (4.30-5.90) m/uL Hgb 7.5 L (13.0-17.5) gm/dL Hct 24.2 L (39.0-53.0) % MCV 121.6 H D (80.0-100.0) fL MCH 37.6 H (25.0-35.0) pg MCHC 30.9 L (31.0-37.0) g/dL RDW 21.2 H (11.5-15.5) % Plt Count 73 L (150-450) k/uL Neutrophils # 21.3 H (1.3-7.7) k/uL Macrocytosis Marked A Sodium 136 L (137-145) mmol/L Potassium 3.1 L (3.5-5.1) mmol/L BUN 59 H (9-20) mg/dL Creatinine 1.74 H (0.66-1.25) mg/dL Glucose 337 H (74-99) mg/dL POC Glucose (mg/dL) (70-110) mg/dL Total Bilirubin 2.5 H (0.2-1.3) mg/dL AST 87 H (17-59) U/L ALT 50 H (4-49) U/L Albumin 2.7 L (3.5-5.0) g/dL Microbiology - Last 24 Hours (Table) 11/18/22 14:40 Blood Culture - Preliminary Blood Assessment and Plan Assessment: Acute abdominal tenderness with CT evidence of colonic ileus and possible appendicitis, cannot exclude intra-abdominal sepsis 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 Recent CT of the brain is negative Acute diastolic CHF, currently patient got more contraction Acute kidney injury on chronic kidney disease stage III Acute metabolic alkalosis, possibly exacerbated by contraction alkalosis. moderate to severe mitral regurgitation Severe pulmonary hypertension Mild COPD exacerbation Chronic atrial fibrillation Plan: With the patient nothing by mouth, continue with Zosyn. Add levofloxacin. Continue with NG tube, continue with bowel rest Surgery team on the case and monitor the patient closely Continue with gentle hydration. Pain management, bowel rest. General surgery team on the case as above Continue with lactulose, ammonia is back to reference range . Appreciate GI input Patient currently on torsemide on small dose of Zaroxolyn, smaller dose continue with the prednisone 40 mg Dairy Associate in of the case. GI team on the case Pulmonary team on the case and currently on a prednisone 40 mg (pulmonary service signed off the case today 11/21) Feed Grinder Signed off the case picker her mentation Labs and medication were reviewed.. Continue same treatment. Continue with symptomatic treatment. Resume home medication. Monitor labs and vitals. DVT and GI prophylaxis. Further recommendations as per clinical course of the patient DVT prophylaxis: Eliquis which was held In case he would need surgery, we don't put him on Lovenox 60 mg twice daily as patient is an chronic atrial fibrillation GI prophylaxis: Protonix PT/OT Deferred No code Prognosis is very guarded
[2022-11-22 11:42] LABS: Glucose,Whole Blood 173 mg/dL (70-110)
[2022-11-22] MEDS ORDERED: LEVOFLOXACIN 500MG-D5W PMX 500 MG in DEXTROSE/WATER 1 100ML.BAG IVPB SCH (12:00)
[2022-11-22] MEDS: LACTULOSE 20 GM/30 ML CUP PO SCH (12:12)
[2022-11-22] MEDS ORDERED: IOPAMIDOL CONTRAST (ORAL USE) VIAL PO PRN ×2 (12:14→13:56)
--- NOTE | 2022-11-22 12:14 | P.PN ---
Subjective Patient is seen for follow-up for acute kidney injury. Currently off of diuretics and maintained on IV fluids. 24 hour urine output at 3.0 L Serum creatinine at 1.7 mg/dL Mentation is much improved. Appears to be back to baseline IV fluids were switched to D5W yesterday as sodium was 148. Sodium 136 today Objective - Vital Signs Vital signs: Vital Signs Temp 98.4 F 11/22/22 08:00 Pulse 88 11/22/22 08:48 Resp 18 11/22/22 08:48 BP 121/63 11/22/22 08:00 Pulse Ox 99 11/22/22 08:33 FiO2 28 11/17/22 08:36 Intake & Output 11/21/22 11/22/22 11/22/22 18:59 06:59 18:59 Intake Total 600 Output Total 550 426 Balance 50 -426 Intake: Oral 600 Output: Urine 550 425 Uretheral (Ruiz) 550 Stool 1 Other: Voiding Method Indwelling Catheter Indwelling Catheter Indwelling Catheter # Bowel Movements 2 1 - Exam Patient is awake. Sitting up in bed. Able to communicate. Mentation at baseline Examination of the heart S1 and S2 Examination of the lungs bilateral breath sounds are heard Abdomen is soft nontender Examination lower extremities shows no significant edema - Labs CBC & Chem 7: 11/22/22 07:36 11/22/22 07:36 Labs: Abnormal Lab Results - Last 24 Hours (Table) 11/21/22 11/21/22 11/21/22 Range/Units 16:53 20:00 21:11 WBC (3.8-10.6) k/uL RBC (4.30-5.90) m/uL Hgb (13.0-17.5) gm/dL Hct (39.0-53.0) % MCV (80.0-100.0) fL MCH (25.0-35.0) pg MCHC (31.0-37.0) g/dL RDW (11.5-15.5) % Plt Count (150-450) k/uL Neutrophils # (1.3-7.7) k/uL Macrocytosis Sodium (137-145) mmol/L Potassium 3.2 L (3.5-5.1) mmol/L BUN (9-20) mg/dL Creatinine (0.66-1.25) mg/dL Glucose (74-99) mg/dL POC Glucose (mg/dL) 272 H 240 H (70-110) mg/dL Total Bilirubin (0.2-1.3) mg/dL AST (17-59) U/L ALT (4-49) U/L Albumin (3.5-5.0) g/dL 11/22/22 11/22/22 11/22/22 Range/Units 06:15 07:36 07:36 WBC (3.8-10.6) k/uL RBC (4.30-5.90) m/uL Hgb (13.0-17.5) gm/dL Hct (39.0-53.0) % MCV (80.0-100.0) fL MCH (25.0-35.0) pg MCHC (31.0-37.0) g/dL RDW (11.5-15.5) % Plt Count (150-450) k/uL Neutrophils # (1.3-7.7) k/uL Macrocytosis Sodium 136 L (137-145) mmol/L Potassium 3.1 L 3.1 L (3.5-5.1) mmol/L BUN 59 H (9-20) mg/dL Creatinine 1.74 H (0.66-1.25) mg/dL Glucose 337 H (74-99) mg/dL POC Glucose (mg/dL) 188 H (70-110) mg/dL Total Bilirubin 2.5 H (0.2-1.3) mg/dL AST 87 H (17-59) U/L ALT 50 H (4-49) U/L Albumin 2.7 L (3.5-5.0) g/dL 11/22/22 11/22/22 Range/Units 07:36 11:37 WBC 23.9 H (3.8-10.6) k/uL RBC 1.99 L (4.30-5.90) m/uL Hgb 7.5 L (13.0-17.5) gm/dL Hct 24.2 L (39.0-53.0) % MCV 121.6 H D (80.0-100.0) fL MCH 37.6 H (25.0-35.0) pg MCHC 30.9 L (31.0-37.0) g/dL RDW 21.2 H (11.5-15.5) % Plt Count 73 L (150-450) k/uL Neutrophils # 21.3 H (1.3-7.7) k/uL Macrocytosis Marked A Sodium (137-145) mmol/L Potassium (3.5-5.1) mmol/L BUN (9-20) mg/dL Creatinine (0.66-1.25) mg/dL Glucose (74-99) mg/dL POC Glucose (mg/dL) 173 H (70-110) mg/dL Total Bilirubin (0.2-1.3) mg/dL AST (17-59) U/L ALT (4-49) U/L Albumin (3.5-5.0) g/dL Microbiology - Last 24 Hours (Table) 11/18/22 14:40 Blood Culture - Preliminary Blood Assessment and Plan Assessment: 1. Acute kidney injury cardiorenal, status post diuretics, restarted IV fluids. UA is benign. Renal function improved 2. Chronic kidney disease NKF stage III a secondary to nephrosclerosis with baseline creatinine 1.2-1.3 mg/dL 3. Severe pulmonary hypertension with moderate to severe mitral regurgitation and chronic lower extremity edema 4. Acute on chronic CHF with preserved ejection fraction 5. Coronary artery disease with history of previous coronary stenting 6. Metabolic alkalosis secondary to diuresis, started on saline 7. Hypernatremia associated with free water deficit. Improved post D5W Plan: Replace potassium Change IV fluids to half-normal saline and encourage increased oral intake Repeat labs in a.m.
[2022-11-22] MEDS: ENOXAPARIN 60 MG/0.6 ML SYRINGE SQ SCH ×2 (12:23→20:23)
[2022-11-22] MEDS: SODIUM CHLORIDE 0.45% 1,000 ML IV SCH (12:25)
--- NOTE | 2022-11-22 12:44 | P.PN ---
Subjective Progress Note Date: 11/22/22 This is an 82-year-old the patient was hospitalized 2 days back because of shortness of breath, orthopnea, paroxysmal nocturnal dyspnea and significant edema in the lower extremity bilaterally. The patient is morbidly obese with a BMI of 40.4. The patient has obstructive sleep apnea. The patient also has chronic kidney disease, stage III, diabetes mellitus type 2, chronic into fibrillation and signs of chronic right-sided heart failure. The patient is also [id number] smoking history. He was not diagnosed having COPD in the past. The maternal Lasix on outpatient basis. Since his admission, the patient denies having any major improvement. Continues to have shortness of breath cough and congestion and extensive edema and his scrotum, abdomen and lower oximetry is bilaterally. Based on that, Pulmicort consultation was requested. The patient is on long-term and coagulation with Eliquis. The patient has no chest pain. No syncope. He is producing urine output and the patient has been negative fluid balance over the past 24 hours. Nevertheless, the balance of the fluid has not been enough to improve any of his symptoms. His chest x-ray at time of admission was consistent with CHF with bilateral pleural effusions and cardiac megaly and bibasilar pulmonary infiltrates. There is evidence of diffuse interstitial pattern. Blood work from today shows a GFR of 36, BUN is 29 with a creatinine of 1.7 and a sodium level is at 132. The discomfort at 6.8 with a hemoglobin of 8 and a platelet count of 57. Glucose at 127. Echocardiogram showed LV systolic function, borderline normal, dilated RV, severe pulmonary hypertension and moderate to severe mitral regurgitation and moderate degree of tricuspid regurgitation. The estimated the right-sided pressure was 64 mmHg. On today's evaluation of 11/13/2022, the patient is feeling better. The patient is less short of breath compared to yesterday and the patient has diabetes at least 3 L and the neck fluid balance is -3 L over the past 24 hours. He reports improvement of the abdominal swelling in the lower extremity edema. The patient remains on Lasix drip at 5 mg an hour and the patient is also Zaroxolyn. Nephrology has been consulted. Renal function remains stable. He is also on examination bronchodilators and steroids as the patient was told to have a component of COPD exacerbation also. CHF and interstitial edema and the findings are essentially stable. The patient is going 7.4 with a hemoglobin of 8.1. BUN is at 35 with a creatinine of 1.5 and a sodium level is at 133. Overall responses has been positive. Awaiting nephrology consultation. Cardiology has also been involved in the case as the patient has right-sided heart failure, chronic A. fib and mitral regurgitation. On 11/14/2022, patient is doing well. The patient continues to diurese adequately. The patient remains on Lasix drip at 5 mg an hour and the patient is also Zaroxolyn 5 mg by mouth twice a day. Fluid balance is negative in the order of more than 3 L and the patient continues to lose weight. The patient is improved and he is less short of breath. The patient is currently on 2 L of O2 nasal cannula with a pulse ox of 99 200%. No chest pain. No shortness of breath. Lower extremity edema, abdominal wall edema and scrotal edema or improving. On today's blood work, the WBC count 11.9 with a hemoglobin of 7.5. BUN is 45 with a creatinine 0.9 and his sodium level is at 134. He remains on bronchodilators. Remains on IV steroids. The patient remained atrial fibrillation and he has chronic mitral regurgitation. 11/13/2022, the patient remains on Lasix drip and is currently on 10 mg an hour. Doing well. No respiratory difficulties. Is also on Zaroxolyn 5 mg by mouth on a daily basis. The BUN is at 53 with a creatinine of 1.6 which is improved compared to yesterday. Sodium level is at 135. The echoes at 7.7 with a hemoglobin of 7.8 and a platelet count of 55. Noted the patient has chronic no rmocytic. The platelet count remains unchanged. The overall fluid balance has been negative and the patient weight is currently down to 110 kg and he is in negative fluid balance of at least 3.4 L over the past 24 hours. 11/16/2022, condition is essentially stable and the patient remains on Lasix drip at 10 mg an hour and Zaroxolyn 5 mg by mouth daily. The patient's body weight is down to 104 kg yesterday and the patient has been another 3.5 L negative fluid balance since yesterday. The patient is stable. He is a 65 with a creatinine of 2.01. Sodium is at 134. Serum bicarb is at 39. The patient is showing marked improvement in his lower extremity edema. He is still complaining of some exertional dyspnea. He remains on oxygen at 2 L/m nasal cannula. The patient otherwise has no complaints. Remains on anticoagulation with Eliquis 2.5 mg twice a day. Rest of the home medications are unchanged and the patient is also on a prednisone burst taper starting with 40 mg by mouth da [place]. 11/17/2022, the patient remains on Lasix drip and Zaroxolyn. The patient's weight is down to 97 kg and the patient has lost another 4 L of fluid balance over the past 24 hours. The breathing is stable for now. He is still on 2 L of oxygen by nasal cannula. He has developed some metabolic alkalosis. There is essentially related to diuresis. Serum bicarbs of 44. BUN is at 74 with a crea tinine 1.9. The hemoglobin is at 7.7. Remains on anticoagulation. Also completing a course of prednisone burst taper. On 11/18/2022, the patient's condition is decompensated. Overnight, the patient became aggressive, confused and agitated. He was given samples 25 mg at bedtime it was also given Haldol IV. This morning is more lethargic. He is aggressively diuresed with Lasix and Zaroxolyn. The patient is currently off Lasix. He was switched to oral Demadex and I discontinued Zaroxolyn. Note that the patient has become quite alkalotic. He received Diamox and the blood gas that was done today shows a pH of 7.3 with a pCO2 of 40. The pO2 was 44 on FiO2 of 28%. At the same time, the patient's serum bicarb was at 34 and this dropped from 41. Rest of the blood work shows a BUN of 69 and a creatinine of 1.9 and sodium levels of 136. Potassium levels at 3.4. WBC count is at 17.4 with a hemoglobin of 7.8 and a platelet count of 82. His serum ammonia level was found to be quite elevated at 255. The patient was started on lactulose enemas. CAT scan of the brain showed no acute abnormalities. A repeat chest x-ray was done today shows cardiomegaly with mild vascular congestion and overall picture is essentially improved. Reevaluated today on 11/19/22, patient, patient is sleeping, his is at bedside, apparently he was given some sedation earlier today for extreme a gitation and confusion. Patient has been receiving Haldol. Patient remains on diuretics, remains on treatment for hyperammonemia level. Intermittently encephalopathic and agitated, although his ammonia level is down to 48 today. CBC is relatively normal except for hemoglobin of 7.8 WBC count of 17.4, INR is 1.6 Reevaluated today on 11/20/2022, patient seems to be much better today, more awake, still a bit confused, is at bedside. Patient is on room air, does not seem to be in any distress. Labs showed hemoglobin of 7.7 elevated sodium of 148 low potassium of 2.7 and renal profile about the same with creatinine of 1.65. His liver enzymes showed a elevated total bilirubin of 3.6 ALT of 57 and AST of 172. Seen by gastroenterology on consultation, felt to have liver cirrhosis hepatic encephalopathy congestive heart failure, the recommendation is to continue lactulose, continue supportive care measures, and avoidance of hepatotoxic drugs. Reevaluated today on 11/21/2022, continues to do well, confusion is improving but not completely resolved. Ammonia level is back to normal. Patient is on room air, not in any distress, continues to have significant electrolytes abnormali ties with hypernatremia sodium of 148 hypokalemia potassium of 2.8 borderline renal functioning with GFR of 38. Patient is hemodynamically stable, O2 sats is on the percent on 4 L. The patient is seen today 11/22/2022 in follow-up on the selective care unit. He is currently awake and alert. Maintaining O2 saturations in the upper 90s on 4 L/m per nasal cannula. He's been afebrile. Hemodynamically stable. Computed tomography scan of the abdomen and pelvis revealed a dilated appendix with gas within the tip. There is some nonspecific surrounding fluid/stranding. Findings could be seen with acute appendicitis. Gas and stool filled dilated colon and rectum without focal transition point suggestive of an colonic ileus. 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 Hepatic cirrhosis with findings suggestive of portal hypertension with trace ascites and splenic collaterals. Right adrenal gland lipid rich adenoma. Nonobstructive bilateral renal calculi. Surgical services are following. Nasogastric tube has been placed. Today's chest x-ray reveals cardiomegaly. Chronic parenchymal changes without new focal airspace opacity, pleural effusion or pneumothorax. Blood cultures revealed no growth. White count 23.9. Hemoglobin 7.5. MCV is 122. Platelet count 73,000. Sodium 136. Potassium 3.1. Bicarb 30. BUN 59. Creatinine 1.74. Glucose 337. He is continued on DuoNeb inhalations, Pulmicort inhalations, prednisone taper. She is on Xifaxan, Zosyn, Levaquin. Lovenox for anticoagulation. Objective - Vital Signs Vital signs: Vital Signs Temp 97.6 F 11/22/22 12:00 Pulse 90 11/22/22 12:18 Resp 18 11/22/22 12:18 BP 110/66 11/22/22 12:00 Pulse Ox 98 11/22/22 12:00 FiO2 28 11/17/22 08:36 Intake & Output 11/21/22 11/22/22 11/22/22 18:59 06:59 18:59 Intake Total 600 Output Total 550 426 Balance 50 -426 Intake: Oral 600 Output: Urine 550 425 Uretheral (Ruiz) 550 Stool 1 Other: Voiding Method Indwelling Catheter Indwelling Catheter Indwelling Catheter # Bowel Movements 2 1 - Exam GENERAL EXAM: Alert, pleasant 82-year-old male, on 4 L nasal cannula, comfortable in no apparent distress. HEAD: Normocephalic. EYES: Normal reaction of pupils, equal size. NOSE: Nasogastric tube secured in place. Clear with pink turbinates. THROAT: No erythema or exudates. NECK: No masses, no JVD. CHEST: No chest wall deformity. LUNGS: Equal air entry with no crackles, wheeze, rhonchi or dullness. CVS: S1 and S2 normal with no audible murmur, regular rhythm. ABDOMEN: Distended, hypoactive bowel sounds, tender in the right lower quadrant, no guarding or rigidity. SPINE: No scoliosis or deformity SKIN: No rashes CENTRAL NERVOUS SYSTEM: No focal deficits, tone is normal in all 4 extremities. EXTREMITIES: There is 1+ peripheral edema. No clubbing, no cyanosis. Peripheral pulses are intact. - Labs CBC & Chem 7: 11/22/22 07:36 11/22/22 07:36 Labs: Abnormal Lab Results - Last 24 Hours (Table) 11/21/22 11/21/22 11/21/22 Range/Units 16:53 20:00 21:11 WBC (3.8-10.6) k/uL RBC (4.30-5.90) m/uL Hgb (13.0-17.5) gm/dL Hct (39.0-53.0) % MCV (80.0-100.0) fL MCH (25.0-35.0) pg MCHC (31.0-37.0) g/dL RDW (11.5-15.5) % Plt Count (150-450) k/uL Neutrophils # (1.3-7.7) k/uL Macrocytosis Sodium (137-145) mmol/L Potassium 3.2 L (3.5-5.1) mmol/L BUN (9-20) mg/dL Creatinine (0.66-1.25) mg/dL Glucose (74-99) mg/dL POC Glucose (mg/dL) 272 H 240 H (70-110) mg/dL Total Bilirubin (0.2-1.3) mg/dL AST (17-59) U/L ALT (4-49) U/L Albumin (3.5-5.0) g/dL 11/22/22 11/22/22 11/22/22 Range/Units 06:15 07:36 07:36 WBC (3.8-10.6) k/uL RBC (4.30-5.90) m/uL Hgb (13.0-17.5) gm/dL Hct (39.0-53.0) % MCV (80.0-100.0) fL MCH (25.0-35.0) pg MCHC (31.0-37.0) g/dL RDW (11.5-15.5) % Plt Count (150-450) k/uL Neutrophils # (1.3-7.7) k/uL Macrocytosis Sodium 136 L (137-145) mmol/L Potassium 3.1 L 3.1 L (3.5-5.1) mmol/L BUN 59 H (9-20) mg/dL Creatinine 1.74 H (0.66-1.25) mg/dL Glucose 337 H (74-99) mg/dL POC Glucose (mg/dL) 188 H (70-110) mg/dL Total Bilirubin 2.5 H (0.2-1.3) mg/dL AST 87 H (17-59) U/L ALT 50 H (4-49) U/L Albumin 2.7 L (3.5-5.0) g/dL 11/22/22 11/22/22 Range/Units 07:36 11:37 WBC 23.9 H (3.8-10.6) k/uL RBC 1.99 L (4.30-5.90) m/uL Hgb 7.5 L (13.0-17.5) gm/dL Hct 24.2 L (39.0-53.0) % MCV 121.6 H D (80.0-100.0) fL MCH 37.6 H (25.0-35.0) pg MCHC 30.9 L (31.0-37.0) g/dL RDW 21.2 H (11.5-15.5) % Plt Count 73 L (150-450) k/uL Neutrophils # 21.3 H (1.3-7.7) k/uL Macrocytosis Marked A Sodium (137-145) mmol/L Potassium (3.5-5.1) mmol/L BUN (9-20) mg/dL Creatinine (0.66-1.25) mg/dL Glucose (74-99) mg/dL POC Glucose (mg/dL) 173 H (70-110) mg/dL Total Bilirubin (0.2-1.3) mg/dL AST (17-59) U/L ALT (4-49) U/L Albumin (3.5-5.0) g/dL Microbiology - Last 24 Hours (Table) 11/18/22 14:40 Blood Culture - Preliminary Blood Assessment and Plan Assessment: Acute hepatic encephalopathy, suspect liver cirrhosis secondary to remote alcohol abuse. Computed tomography scan of the abdomen and pelvis revealed a dilated appendix with gas within the tip. There is some nonspecific surrounding fluid/stranding. Findings could be seen with acute appendicitis. Gas and stool filled dilated colon and rectum without focal transition point suggestive of an colonic ileus. 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 Hepatic cirrhosis with findings suggestive of portal hypertension with trace ascites and splenic collaterals. Right adrenal gland lipid rich adenoma. Nonobstructive bilateral renal calculi. Surgical services are following. Nasogastric tube has been placed. Altered mental status secondary to above, acute metabolic toxic encephalopathy Acute diastolic congestive heart failure Acute on chronic kidney disease Acute metabolic alkalosis secondary to diuretics Moderate severe pulmonary hypertension Moderate severe mitral regurgitation History of mild COPD Chronic atrial fibrillation History of colonic polyps Type 2 diabetes with diabetic nephropathy History of CVA without any residual deficit Plan: The patient was seen and evaluated Computed tomography scan, chest x-ray, labs and medications reviewed Surgical services are following Nasogastric tube has been placed High-risk surgical candidate Improved mentation remains at the bedside Titrate the FiO2 as tolerated We will continue to follow I have personally seen and examined the patient, performed the documentation and the assessment and plan as written. Number of minutes spent on the visit: 10.
--- NOTE | 2022-11-22 13:08 | P.PN ---
Progress Note - Text Progress Note Date: 11/22/22 the patient was examined at the bedside with his family present. The patient states that he has had some flatus. The patient states he has no pain resting in bed. He does have some mild discomfort when his abdomen is pressed. But he currently has 0 pain while resting in bed. On exam his vital signs appear stable. Abdomen is soft there is less distention than yesterday. There is no rebound or guarding. There is some minimal tenderness in the lower quadrants on deep palpation. The patient has no pain while resting flat on his bed. Due to the patient's increased white count repeat CAT scan will be performed. The patient is extremely high risk for any surgical intervention. The patient will continue receive IV antibiotics for his leukocytosis. If he does have simple on, acute appendicitis still be treated with IV antibiotics. No surgical intervention is planned at this time.
--- NOTE | 2022-11-22 13:55 | P.PN ---
Subjective Progress Note Date: 11/22/22 Principal diagnosis: Hepatic encephalopathy This is a 82-year-old male who presented to the emergency department 11 days ago with complaints of shortness of breath and lower extremity swelling. Patient was admitted with acute on chronic congestive heart failure with acute dyspnea, and severe pulmonary hypertension. He has a past medical history including congestive heart failure, chronic lower extremity edema, chronic stage III kidney disease, diabetes mellitus2, obstructive sleep apnea with CPAP, previous history of CVA, skin cancer, chronic hypoxic respiratory failure, chronic atrial fibrillation, COPD and myodysplasia. His who is at the bedside states that the patient became significantly confused about 2-3 days ago. She states at that time he was started on a new oral medication. He was noted to have a significantly elevated ammonia level at 255, elevated LFTs and underwent a liver ultrasound showing cirrhosis of the liver. Gastroenterology was consulted for cirrhosis of the liver. Patient is currently confused, lethargic, and unable to obtain history from patient. History obtained from patient's and chart. She states he has no previous history of cirrhosis of the liver, no history of hepatic encephalopathy. She does state that he was a heavy drinker daily for about 40 years. She states that he quit drinking about 11 or 12 years ago. 11/20/2022 Patient is seen and examined today as a follow-up. He is more awake and alert. He is alert 1. He was able to eat a little breakfast this morning. HE has no complaints. He is still confused and a poor historian, and unable to give any details on past medical history. WBC 10.6 hemoglobin 7.7 platelet count 72,000 sodium 148 potassium 2.7 BUN 73 creatinine 1.65 total bilirubin 3.6 AST 172 ALT 57 alkaline phosphatase 74 ammonia 21 alpha 1 antitrypsin 148 AFP tumor marker less than 3.0, a hepatitis panel nonreactive 11/21/2022 Patient seen and examined as a follow-up. He is a little more awake today but easily falls asleep. He did eat a low-fat of his breakfast. Complaints of some abdominal discomfort and he has abdominal distention. Nursing reported that he only had 1 bowel movement yesterday 1 through the night and one this morning. Patient was CT of the abdomen and pelvis reported dilated appendix with gas within the tip. Nonspecific surrounding fluid/stranding. Findings could be seen with acute appendicitis. Gas and stool-filled dilated colon and rectum without focal transition point suggestive of an colonic ileus. Infrarenal abdominal aortic aneurysm measuring up to 5.3 cm, hepatic cirrhosis with findings suggestive of portal hypertension with trace ascites and splenic collaterals, right adrenal gland lipid rich adenoma, nonobstructive bilateral renal calculi. The patient is not having any nausea or vomiting he's been afebrile. 11/22/2022 Patient seen and examined as a follow-up. He is sitting up in bed he is a little more alert today. States he has a little bit of lower abdominal cramping. No nausea or vomiting. He had a NG tube placed yesterday evening with approximately 200 mL of yellow/clear output. He has been afebrile. He did have an increase in WBC count 23.9, hemoglobin 7.5 hematocrit 24 platelet count 73,000 total bilirubin 2.5 AST 87 ALT 50 alkaline phosphatase 73 ammonia 11 Objective - Vital Signs Vital signs: Vital Signs Temp 98.4 F 11/22/22 08:00 Pulse 88 11/22/22 08:48 Resp 18 11/22/22 08:48 BP 121/63 11/22/22 08:00 Pulse Ox 99 11/22/22 08:33 FiO2 28 11/17/22 08:36 Intake & Output 11/21/22 11/22/22 11/22/22 18:59 06:59 18:59 Intake Total 600 Output Total 550 425 Balance 50 -425 Intake: Oral 600 Output: Urine 550 425 Uretheral (Ruiz) 550 Other: Voiding Method Indwelling Catheter Indwelling Catheter # Bowel Movements 2 1 - Exam General appearance: The patient is alert, oriented to self only, appears in no acute distress. HET: Head is normocephalic and atraumatic. Conjunctiva pink. Sclera anicteric. Neck: Supple without lymphadenopathy. Abdomen: Soft, obese, mild tenderness, mildly distended however improved from yesterday. No guarding or rigidity. Extremities: Normal skin color and turgor. No pedal edema Skin: No rashes, no jaundice Neurological: More alert today. Answers questions appropriately. - Labs CBC & Chem 7: 11/22/22 07:36 11/22/22 07:36 Labs: Abnormal Lab Results - Last 24 Hours (Table) 11/21/22 11/21/22 11/21/22 Range/Units 10:38 11:45 16:53 WBC (3.8-10.6) k/uL RBC (4.30-5.90) m/uL Hgb (13.0-17.5) gm/dL Hct (39.0-53.0) % MCV (80.0-100.0) fL MCH (25.0-35.0) pg MCHC (31.0-37.0) g/dL RDW (11.5-15.5) % Plt Count (150-450) k/uL Neutrophils # (1.3-7.7) k/uL Macrocytosis Sodium (137-145) mmol/L Potassium (3.5-5.1) mmol/L BUN (9-20) mg/dL Creatinine (0.66-1.25) mg/dL Glucose (74-99) mg/dL POC Glucose (mg/dL) 244 H 283 H 272 H (70-110) mg/dL Total Bilirubin (0.2-1.3) mg/dL AST (17-59) U/L ALT (4-49) U/L Albumin (3.5-5.0) g/dL 11/21/22 11/21/22 11/22/22 Range/Units 20:00 21:11 06:15 WBC (3.8-10.6) k/uL RBC (4.30-5.90) m/uL Hgb (13.0-17.5) gm/dL Hct (39.0-53.0) % MCV (80.0-100.0) fL MCH (25.0-35.0) pg MCHC (31.0-37.0) g/dL RDW (11.5-15.5) % Plt Count (150-450) k/uL Neutrophils # (1.3-7.7) k/uL Macrocytosis Sodium (137-145) mmol/L Potassium 3.2 L (3.5-5.1) mmol/L BUN (9-20) mg/dL Creatinine (0.66-1.25) mg/dL Glucose (74-99) mg/dL POC Glucose (mg/dL) 240 H 188 H (70-110) mg/dL Total Bilirubin (0.2-1.3) mg/dL AST (17-59) U/L ALT (4-49) U/L Albumin (3.5-5.0) g/dL 11/22/22 11/22/22 11/22/22 Range/Units 07:36 07:36 07:36 WBC 23.9 H (3.8-10.6) k/uL RBC 1.99 L (4.30-5.90) m/uL Hgb 7.5 L (13.0-17.5) gm/dL Hct 24.2 L (39.0-53.0) % MCV 121.6 H D (80.0-100.0) fL MCH 37.6 H (25.0-35.0) pg MCHC 30.9 L (31.0-37.0) g/dL RDW 21.2 H (11.5-15.5) % Plt Count 73 L (150-450) k/uL Neutrophils # 21.3 H (1.3-7.7) k/uL Macrocytosis Marked A Sodium 136 L (137-145) mmol/L Potassium 3.1 L 3.1 L (3.5-5.1) mmol/L BUN 59 H (9-20) mg/dL Creatinine 1.74 H (0.66-1.25) mg/dL Glucose 337 H (74-99) mg/dL POC Glucose (mg/dL) (70-110) mg/dL Total Bilirubin 2.5 H (0.2-1.3) mg/dL AST 87 H (17-59) U/L ALT 50 H (4-49) U/L Albumin 2.7 L (3.5-5.0) g/dL Microbiology - Last 24 Hours (Table) 11/18/22 14:40 Blood Culture - Preliminary Blood Assessment and Plan (1) Liver cirrhosis Narrative/Plan: 82-year-old male who presented with shortness of breath with acute on chronic congestive heart failure with history of multiple comorbidities who recently became confused, with altered mental status changes. He underwent a CT of the brain that showed no acute findings. He did have some mild elevation in his bilirubin and AST with history of alcohol abuse. Ammonia level was drawn and came back at 255. He was started on lactulose 200 mg every 6 hours per rectum with improvement in his ammonia level to 48 today. No prior history of cirrhosis of the liver hepatic encephalopathy however reports long-standing history of alcohol dependency of 40 years. Ultrasound of the liver does report nodular hepatic contour which may reflect underlying cirrhotic liver disease. Patient likely has cirrhosis of the liver from many years of alcohol abuse, with hepatic encephalopathy however need to consider other possible etiologies. Will get AFP, hepatitis panel, alpha-1 antitrypsin, DAVID. Mentation slowly improving. Will need to continue outpatient monitoring and continue with lactulose. Add Xifaxin. Liver serologies workup negative to date, as well as hepatitis panel nonreactive. 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 Current Visit: Yes Status: Acute Code(s): K74.60 - UNSPECIFIED CIRRHOSIS OF LIVER SNOMED Code(s): 77695980 (2) Hepatic encephalopathy Narrative/Plan: Continue lactulose, will transition physician to oral. Continue Xifaxan as ordered. Consider neurology consultation for further evaluation of altered mental status changes. Patient had prolonged symptoms of altered mental status despite improvement in ammonia levels. Current Visit: Yes Status: Acute Code(s): K76.82 - HEPATIC ENCEPHALOPATHY SNOMED Code(s): 66135888 (3) Congestive heart failure Current Visit: Yes Status: Acute Code(s): I50.9 - HEART FAILURE, UNSPECIFIED SNOMED Code(s): 51253540 (4) Atrial fibrillation Current Visit: Yes Status: Acute Code(s): I48.91 - UNSPECIFIED ATRIAL FIBRILLATION SNOMED Code(s): 55034566 (5) Dyspnea Current Visit: Yes Status: Acute Code(s): R06.00 - DYSPNEA, UNSPECIFIED SNOMED Code(s): 503354083 (6) Chronic kidney disease Current Visit: Yes Status: Acute Code(s): N18.9 - CHRONIC KIDNEY DISEASE, UNSPECIFIED SNOMED Code(s): 165340692 (7) MDS (myelodysplastic syndrome) Current Visit: No Status: Chronic Priority: High Code(s): D46.9 - MYELODYSPLASTIC SYNDROME, UNSPECIFIED SNOMED Code(s): 697179692 (8) Hypokalemia Narrative/Plan: Replace potassium per protocol Current Visit: Yes Status: Acute Code(s): E87.6 - HYPOKALEMIA SNOMED Code(s): 00556212 (9) Ileus Current Visit: Yes Status: Acute Code(s): K56.7 - ILEUS, UNSPECIFIED SNOMED Code(s): 137889239 Plan: 1. Continue symptomatic and supportive care 2. Change lactulose to 200 g per rectum twice a day 3. Add Xifaxin 550 mg BID 4. Daily CBC, CMP, ammonia. 5. Continue alcohol abstinence and avoid hepatotoxic medications 6. Patient will need outpatient monitoring with gastroenterology 7. Consider neurology consultation for prolonged altered mental status despite improved ammonia levels 8. Continue with recommendations from general surgery 9. Continue medical management per primary team and multiple consultants Thank you for this consultation, we'll continue to follow. Dr. Devan Moody I agree with the dictator's note, documented as a scribe by Mary West.
--- NOTE | 2022-11-22 16:05 | CT ---
EXAMINATION TYPE: CT abdomen pelvis wo con CT DLP: 914.2 mGycm, Automated exposure control for dose reduction was used. DATE OF EXAM: 11/22/2022 3:57 PM COMPARISON: CT abdomen pelvis most recent from CLINICAL INDICATION:Male, 82 years old with history of recheck appendicitis, abd pain; abdominal pain TECHNIQUE: Axial CT of the abdomen and pelvis. Sagittal and coronal reformats were created on a [employer] workstation. Contrast used: mL of , (none if empty) Oral contrast used: with Oral Contrast (none if empty) FINDINGS: LOWER CHEST: Posterior dependent subsegmental atelectasis is noted. Cardiomegaly. Coronary arterial c alcifications. ABDOMEN LIVER: Nodular contour to the liver with widened fissures most consistent with cirrhosis. GALLBLADDER AND BILE DUCTS: Unremarkable. PANCREAS: Unremarkable noncontrast appearance. SPLEEN: Top end of normal for size measuring 13.8 cm in CC dimension. ADRENAL GLANDS: Right adrenal gland hypodense 1.8 cm nodule consistent with a benign lipid rich adeno ma. Poor visualization of the left adrenal gland.. KIDNEYS AND URETERS: No evidence of hydronephrosis. Nonobstructive bilateral renal calculi with large st in the left kidney measuring up to 7 mm. Lateral renal cysts. PELVIS BLADDER: Nondistended with Ruiz catheter in place. REPRODUCTIVE: Unremarkable. ABDOMEN & PELVIS STOMACH AND BOWEL: Fluid-filled distal esophagus. Small bowel is normal in caliber. Dilated fluid and gas-filled colon extending to the rectum. No focal transition point. No evidence of bowel obstruction. Stable appearance of the appendix with gas within the lumen. There is some fluid which extend up towa rds the liver. PERITONEUM: No evidence of pneumoperitoneum. Trace perihepatic ascites. Additional regions of trace a scites throughout the abdomen. VASCULATURE: Infrarenal fusiform abdominal aortic aneurysm measuring up to 5.3 cm. Mild atherosclerot ic calcification of the aorta and its branches. Splenic collaterals identified. MUSCULOSKELETAL: No acute osseous abnormalities. Postsurgical changes from lumbar fusion at L4-L5 wit h disc fusion cages. Mild multilevel degenerative disc disease. LYMPH NODES: No gross evidence for lymphadenopathy. SOFT TISSUE/ABDOMINAL WALL: Unremarkable IMPRESSION: 1. Similar appearing appendix with gas within the tip. Fluid around the appendix is felt to be second barbara to ascites. 2. Gas and stool-filled dilated colon and rectum without focal transition point suggestive of an colo yan ileus. 3. Infrarenal abdominal aortic aneurysm measuring up to 5.3 cm. 4. Hepatic cirrhosis with findings suggestive of portal hypertension with trace ascites and splenic c ollaterals. 5. Right adrenal gland lipid rich adenoma. 6. Nonobstructive bilateral renal calculi.
[2022-11-22 16:19] LABS: Glucose,Whole Blood 201 mg/dL (70-110)
--- NOTE | 2022-11-22 19:38 | XR ---
EXAMINATION TYPE: XR chest 1V confirm line [facility] DATE OF EXAM: 11/22/2022 HISTORY: Shortness of breath. COMPARISON: 11/22/2022 TECHNIQUE: Single view of the chest is submitted. FINDINGS: Demonstrated are scattered senescent parenchymal change. NG tube is noted within the stomach. There is no evidence for focal infiltrate. The heart is stable. Hilar and mediastinal structures are within normal limits. Degenerative changes are seen of the dorsal spine. IMPRESSION: 1. Pulmonary venous congestion without overt failure.
[2022-11-22 20:20] LABS: Glucose,Whole Blood 164 mg/dL (70-110)
[2022-11-22] MEDS: DORZOLAMIDE-TIMOLOL 2.23%/0.68 10ML BTL BOTH EYES SCH (20:23)
[2022-11-22] MEDS: TAMSULOSIN 0.4 MG CAP.ER.24H PO SCH ×2 (20:23→21:25)
[2022-11-22] MEDS: LATANOPROST 0.005% OPHTH DROPS 2.5 ML BTL BOTH EYES SCH (20:23)
[2022-11-22] MEDS: LACTULOSE 200 GM/300 ML (FROM 1/2 GAL JUG) RECTAL SCH (23:50)
[2022-11-23] MEDS: SODIUM CHLORIDE 0.45% 1,000 ML IV SCH (05:12)
[2022-11-23] MEDS: PANTOPRAZOLE 40 MG TABLET PO SCH (05:12)
[2022-11-23] MEDS: INSULIN ASPART (NovoLOG) 100 UNIT/ML VIAL SQ SCH ×4 (06:07→21:04)
[2022-11-23 06:08] LABS: Glucose,Whole Blood 152 mg/dL (70-110)
[2022-11-23 06:24] LABS: Anisocytosis Moderate; HCT 22.8 % (39.0-53.0); HGB 7.5 gm/dL (13.0-17.5); Hypochromasia Moderate; MCH 38.4 pg (25.0-35.0); Macrocytosis Marked; Mean Platelet Volume 12.1; Platelet Count 94 k/uL (150-450); RBC 1.95 m/uL (4.30-5.90); RDW 20.8 % (11.5-15.5); WBC 19.6 k/uL (3.8-10.6)
[2022-11-23 06:25] LABS: African American GFR (CKD) 36 (>60 ml/min/1.73 sqM); Anion Gap 4 mmol/L; Blood Urea Nitrogen 65 mg/dL (9-20); Calcium 8.5 mg/dL (8.4-10.2); Carbon Dioxide 33 mmol/L (22-30); Chloride 109 mmol/L (98-107); Glucose 137 mg/dL (74-99); Magnesium 2.3 mg/dL (1.6-2.3); Non-African American GFR(CKD) 31 (>60 ml/min/1.73 sqM); Potassium 2.9 mmol/L (3.5-5.1); Sodium 146 mmol/L (137-145)
[2022-11-23 06:26] LABS: MCV 116.6 fL (80.0-100.0)
[2022-11-23] MEDS: POTASSIUM CHLORIDE 10 MEQ in WATER FOR INJECTION 1 100ML.BAG IVPB SCH ×6 (06:45→14:45)
--- NOTE | 2022-11-23 08:35 | XR ---
EXAMINATION TYPE: XR chest 1V DATE OF EXAM: 11/23/2022 CLINICAL HISTORY: NG tube placement. TECHNIQUE: Single AP portable upright view of the chest is obtained. COMPARISON: Chest x-ray from one day earlier and older studies. FINDINGS: There is a nasogastric tube projecting below diaphragm redemonstrated. Stable cardiomegaly. Chronic parenchymal changes greatest in the left lung base again seen without leblanc spicious new focal airspace opacity, pleural effusion, or pneumothorax identified bilaterally. Osseou s structures are intact. IMPRESSION: As above.
[2022-11-23] MEDS: IPRATROPIUM-ALBUTEROL 3 ML NEB INHALATION SCH ×3 (08:43→20:51)
[2022-11-23] MEDS: BUDESONIDE 0.5 MG/2 ML NEBU INHALATION SCH ×2 (08:43→20:51)
[2022-11-23] MEDS: PIPERACILLIN-TAZOBACTAM 3.375 GM in SODIUM CHLORIDE 0.9% 100 ML IVPB SCH ×3 (09:35→23:04)
[2022-11-23] MEDS: MULTIVITAMINS, THERA 1 EACH TAB PO SCH (09:36)
[2022-11-23] MEDS: FERROUS SULFATE 325 MG TAB PO SCH (09:36)
[2022-11-23] MEDS: ATORVASTATIN 40 MG TAB PO SCH (09:36)
[2022-11-23] MEDS: POTASSIUM CHLORIDE ER 20 MEQ TAB.ER PO SCH (09:36)
[2022-11-23] MEDS: RIFAXIMIN 550 MG TABLET PO SCH ×2 (09:36→21:03)
[2022-11-23] MEDS: predniSONE 20 MG TAB PO SCH (09:36)
[2022-11-23] MEDS: ENOXAPARIN 60 MG/0.6 ML SYRINGE SQ SCH ×2 (09:36→21:03)
[2022-11-23] MEDS: THIAMINE 100 MG/ML 2 ML VIAL IVP SCH (09:37)
--- NOTE | 2022-11-23 10:13 | P.PN ---
Subjective This is a pleasant 82 years old male with multiple medical problems including history of heart failure presents with worsening dyspnea and leg swelling on and he was found with fluid overload secondary to diastolic CHF, echocardiogram from 09/2022 showing ejection fraction 55%. Currently pattern grader supervisor signed off the case and patient being monitored closely by nephrology team. He remains on Lasix drip 10 mg/h, creatinine 1.4, 1.6 and 2.1. Discuss case with nephrology team who recommended to keep the Lasix drip for now. Pulmonary team on the case for mild COPD exacerbation and currently on a prednisone 40 mg. Hemoglobin 7.8. 11/17/2022 patient CHF and fluid overload improving, his oxygen saturation is acceptable and wants only with minimal crepitation mainly on the right side however he still have 2+ leg edema. However patient developed more alkalosis therefore Lasix drip was stopped and started on torsemide while the dose for Zaroxolyn was lowered to 2.5 mg. Creatinine is stable at 2.0 compared to 1.4 on admission. However patient become more confused today most likely secondary to metabolic encephalopathy and toxic encephalopathy. No recent fall. Patient fell about 3 days ago at that time CT of the brain was negative. Workup showing ammonia level is high at 255 and lactulose is added. We will continue neuro check and consider repeat CT of the brain condition worsens Pressure applied with sponge gel to bleeding superficial ulcer on the right forearm. 11/18/2022 Patient still confused and sleepy this morning from yesterday he got worse significantly. There is no new symptoms, he slipped with the And tachycardic. He had low-grade temperature of 99.8. Leukocytosis worsened 10.5 up to 17,000. Chest x-ray and urinalysis were repeated they were negative for acute process. Risks of flaps looks stable. Creatinine 1.9 which is a stable but higher than baseline because he was on Lasix drip. The sixth rib. Now, torsemide is only once daily. Also patient started on normal saline 75 mL/h Patient continued on prednisone 40 mg once a Eliquis area We will send blood culture and check liver ultrasound as liver enzymes and bilirubin only mildly elevated although this is not very new. Plan discussed with staff and bedside nurse more than once. 11/19/2022 Patient slightly improving regarding his mentation, he still confused sleepy and does not respond to verbal or tactile stimuli but he opens his eyes from moving in bed to some degree which she was not doing its yesterday. His ammonia level is elevated yesterday to 55 and liver ultrasound showing possible liver cirrhosis which is most likely related to alcoholic liver cirrhosis. GI team. He is started on lactulose and ammonia level improved and 48. Also he remains on normal saline at 50 mL/h, alert from 75 mm/h for acute kidney injury and metabolic abnormalities including contraction alkalosis. Check labs tomorrow 11/20/2022 Patient is more awake and interactive significantly better than yesterday and he can answer some questions but still confused and not quite back to his baseline. However patient denies any pain or specific symptoms. He has frequent bowel movements. GI team on the case for his hepatic encephalopathy and his lactulose dose was increased to 30 mg 3 times a day and rifaximin is added. Sodium 148 and patient started on D5 W Creatinine improving down to 1.6. Patient remains on prednisone 40 mg 11/21/2022 Patient today sitting up in bed with sitter at bedside for safety, patient still little confused to the surrounding but improved compared to yesterday. Patient is not eating well he starts complaining from abdominal pain and tenderness today,(yesterday his abdomen was not tender on exam) on exam he had distention and tenderness periumbilical area, computed tomography scan of the abdomen and pelvis was obtained showing gas appendix suspicious for appendicitis and dilated bowel with no transitions zone suspicious for ileus. Patient hemodynamically stable and is afebrile, tachycardia improved. Ammonia improved to baseline yesterday. Creatinine is stable and improved down to 1.6. Hemoglobin is stable at 8.1 and he has mild leukocytosis. Patient was started on Zosyn with surgery to consult I discussed the case with Gen. surgery evaluated the patient 11/22/2022 Patient today still tired and lethargic. But he wakes up and talk to family and at bedside and mentation improved since she started on lactulose. However he developed ileus and abdominal tenderness yesterday and there was suspicion of gas and the appendix suspicious for acute appendicitis, I discussed the case with surgery team and Dr. Begum we are not sure if this is a case of acute appendicitis however it is not entirely excluded or abdominal sepsis especially in view of his abdominal tenderness ileus and abdominal distention. Patient is not able to eat. NG tube was placed in the morning but no output. His labs showing worsening leukocytosis up to 23,000, hemoglobin slightly less 7.5, platelets slightly less at 70 3K, creatinine is slightly up 1.7. Because of this was started on Zosyn yesterday for covering gram-negative and an aerobic microorganisms and we are going to add Levaquin intravenously for better gram-negative coverage given his worsening situation area Of note ammonia level down to 11 and sodium level improved to normal at 136 today. He is hemodynamically stable and afebrile. He was started on normal saline 50 mL/h. Also continued on prednisone 40 mg, rifaximin 550 mg which is another antibiotic. He is still on lactulose 30 g and breathing treatment I talked to the at bedside that's is a very good surgical candidate if surgical intervention is warranted given his a newly diagnosed liver cirrhosis and decompensated liver function Avalide verbalized understanding and acceptance this information. Also she understands that his prognosis is very guarded. Patient is high-risk for deterioration despite treatment. And I told the even if his 5 this episode given his multiple progressive problems with the complication make his long-term prognosis poor as well. She verbalized u nderstanding and acceptance. Currently patient already no good Diuretics are held Alk phos was held Discussed with staff 11/23/2022 patient today showed drastic improvement in his mentation that his back to baseline fully awake and oriented, still feels tired overall and g enerally He still have NG tube in a Place and hemocculted up twice to has to be inserted, draining dark brown discharge. About 100 mL in the bag. Abdominal distention also less abdominal tenderness is the severe compared to yesterday He had some very small bowel movement. But they denies chest pain or dyspnea He remains on D5W at 50 mL/h. Also remains on antibiotic with Zosyn and rifaximin, home dose of all liquids, prednisone 40 mg and lactulose Objective - Vital Signs Vital signs: Vital Signs Temp 97.5 F L 11/23/22 04:00 Pulse 70 11/23/22 08:57 Resp 20 11/23/22 04:00 BP 111/64 11/23/22 04:00 Pulse Ox 98 11/23/22 08:44 FiO2 28 11/17/22 08:36 Intake & Output 11/22/22 11/23/22 11/23/22 18:59 06:59 18:59 Output Total 426 350 Balance -426 -350 Weight 83.5 kg Output: Urine 425 350 Stool 1 Other: Voiding Method Indwelling Catheter Indwelling Catheter # Bowel Movements 1 - Exam GENERAL: The patient is drowsy and tired, not in any acute distress. Well developed, well nourished. HEENT: Pupils are round and equally reacting to light. EOMI. No scleral icterus. No conjunctival pallor. Normocephalic, atraumatic. No pharyngeal erythema. No thyromegaly. CARDIOVASCULAR: S1 and S2 present. No murmurs, rubs, or gallops. -PULMONARY: Chest is clear to auscultation, no wheezing , bilateral basal crack les. -ABDOMEN: Tense, generalized abdominal tenderness, no rebound tenderness or guarding, distended, mildly normoactive bowel sounds. No palpable organomegaly. NG tube in place with no significant output MUSCULOSKELETAL: No joint swelling or deformity. -EXTREMITIES: No cyanosis, clubbing, patient has bilateral pitting leg edema. NEUROLOGICAL: Gross neurological examination did not reveal any focal deficits. SKIN: No rashes. no petechiae. - Labs CBC & Chem 7: 11/23/22 06:07 11/23/22 06:07 Labs: Abnormal Lab Results - Last 24 Hours (Table) 11/22/22 11/22/22 11/22/22 Range/Units 11:37 16:17 20:19 WBC (3.8-10.6) k/uL RBC (4.30-5.90) m/uL Hgb (13.0-17.5) gm/dL Hct (39.0-53.0) % MCV (80.0-100.0) fL MCH (25.0-35.0) pg RDW (11.5-15.5) % Plt Count (150-450) k/uL Macrocytosis Sodium (137-145) mmol/L Potassium (3.5-5.1) mmol/L Chloride (98-107) mmol/L Carbon Dioxide (22-30) mmol/L BUN (9-20) mg/dL Creatinine (0.66-1.25) mg/dL Glucose (74-99) mg/dL POC Glucose (mg/dL) 173 H 201 H 164 H (70-110) mg/dL 11/23/22 11/23/22 11/23/22 Range/Units 06:06 06:07 06:07 WBC 19.6 H (3.8-10.6) k/uL RBC 1.95 L (4.30-5.90) m/uL Hgb 7.5 L (13.0-17.5) gm/dL Hct 22.8 L (39.0-53.0) % MCV 116.6 H D (80.0-100.0) fL MCH 38.4 H (25.0-35.0) pg RDW 20.8 H (11.5-15.5) % Plt Count 94 L (150-450) k/uL Macrocytosis Marked A Sodium 146 H (137-145) mmol/L Potassium 2.9 L (3.5-5.1) mmol/L Chloride 109 H (98-107) mmol/L Carbon Dioxide 33 H (22-30) mmol/L BUN 65 H (9-20) mg/dL Creatinine 1.94 H (0.66-1.25) mg/dL Glucose 137 H (74-99) mg/dL POC Glucose (mg/dL) 152 H (70-110) mg/dL Microbiology - Last 24 Hours (Table) 11/18/22 14:40 Blood Culture - Preliminary Blood Assessment and Plan Assessment: Acute abdominal tenderness with CT evidence of colonic ileus and possible appendicitis, cannot exclude intra-abdominal sepsis 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 Recent CT of the brain is negative Acute diastolic CHF, currently patient got more contraction Acute kidney injury on chronic kidney disease stage III Acute metabolic alkalosis, possibly exacerbated by contraction alkalosis. moderate to severe mitral regurgitation Severe pulmonary hypertension Mild COPD exacerbation Chronic atrial fibrillation Plan: With the patient nothing by mouth, continue with Zosyn. Add levofloxacin. Continue with NG tube, continue with bowel rest Surgery team on the case and monitor the patient closely Continue with gentle hydration. Pain management, bowel rest. General surgery team on the case as above Continue with lactulose, ammonia is back to reference range . Appreciate GI input Patient currently on torsemide on small dose of Zaroxolyn, smaller dose continue with the prednisone 40 mg [employer] in of the case. GI team on the case Pulmonary team on the case and currently on a prednisone 40 mg (pulmonary service signed off the case today 11/21) Business Objects Developer Signed off the supportive employment case manager her mentation Labs and medication were reviewed.. Continue same treatment. Continue with symptomatic treatment. Resume home medication. Monitor labs and vitals. DVT and GI prophylaxis. Further recommendations as per clinical course of the patient DVT prophylaxis: Eliquis which was held In case he would need surgery, we don't put him on Lovenox 60 mg twice daily as patient is an chronic atrial fibrillation GI prophylaxis: Protonix PT/OT Deferred No code Prognosis is very guarded
[2022-11-23] MEDS: DEXTROSE 5% IN WATER 1,000 ML IV SCH (10:58)
[2022-11-23] MEDS: LACTULOSE 200 GM/300 ML (FROM 1/2 GAL JUG) RECTAL SCH ×2 (11:18→22:35)
[2022-11-23 11:56] LABS: Glucose,Whole Blood 138 mg/dL (70-110)
[2022-11-23] MEDS ORDERED: LEVOFLOXACIN 250MG-D5W PMX 250 MG in DEXTROSE/WATER 1 50ML.BAG IVPB SCH (12:00)
[2022-11-23] MEDS: DARBEPOETIN ALFA 40 MCG/0.4 ML SYRINGE SQ SCH (13:01)
--- NOTE | 2022-11-23 13:22 | P.PN ---
Subjective Progress Note Date: 11/23/22 Principal diagnosis: Hepatic encephalopathy This is a 82-year-old male who presented to the emergency department 11 days ago with complaints of shortness of breath and lower extremity swelling. Patient was admitted with acute on chronic congestive heart failure with acute dyspnea, and severe pulmonary hypertension. He has a past medical history including congestive heart failure, chronic lower extremity edema, chronic stage III kidney disease, diabetes mellitus2, obstructive sleep apnea with CPAP, previous history of CVA, skin cancer, chronic hypoxic respiratory failure, chronic atrial fibrillation, COPD and myodysplasia. His who is at the bedside states that the patient became significantly confused about 2-3 days ago. She states at that time he was started on a new oral medication. He was noted to have a significantly elevated ammonia level at 255, elevated LFTs and underwent a liver ultrasound showing cirrhosis of the liver. Gastroenterology was consulted for cirrhosis of the liver. Patient is currently confused, lethargic, and unable to obtain history from patient. History obtained from patient's and chart. She states he has no previous history of cirrhosis of the liver, no history of hepatic encephalopathy. She does state that he was a heavy drinker daily for about 40 years. She states that he quit drinking about 11 or 12 years ago. 11/20/2022 Patient is seen and examined today as a follow-up. He is more awake and alert. He is alert 1. He was able to eat a little breakfast this morning. HE has no complaints. He is still confused and a poor historian, and unable to give any details on past medical history. WBC 10.6 hemoglobin 7.7 platelet count 72,000 sodium 148 potassium 2.7 BUN 73 creatinine 1.65 total bilirubin 3.6 AST 172 ALT 57 alkaline phosphatase 74 ammonia 21 alpha 1 antitrypsin 148 AFP tumor marker less than 3.0, a hepatitis panel nonreactive 11/21/2022 Patient seen and examined as a follow-up. He is a little more awake today but easily falls asleep. He did eat a low-fat of his breakfast. Complaints of some abdominal discomfort and he has abdominal distention. Nursing reported that he only had 1 bowel movement yesterday 1 through the night and one this morning. Patient was CT of the abdomen and pelvis reported dilated appendix with gas within the tip. Nonspecific surrounding fluid/stranding. Findings could be seen with acute appendicitis. Gas and stool-filled dilated colon and rectum without focal transition point suggestive of an colonic ileus. Infrarenal abdominal aortic aneurysm measuring up to 5.3 cm, hepatic cirrhosis with findings suggestive of portal hypertension with trace ascites and splenic collaterals, right adrenal gland lipid rich adenoma, nonobstructive bilateral renal calculi. The patient is not having any nausea or vomiting he's been afebrile. 11/22/2022 Patient seen and examined as a follow-up. He is sitting up in bed he is a little more alert today. States he has a little bit of lower abdominal cramping. No nausea or vomiting. He had a NG tube placed yesterday evening with approximately 200 mL of yellow/clear output. He has been afebrile. He did have an increase in WBC count 23.9, hemoglobin 7.5 hematocrit 24 platelet count 73,000 total bilirubin 2.5 AST 87 ALT 50 alkaline phosphatase 73 ammonia 11 11/23/2022 Patient seen and examined today as a follow-up. He is laying in bed. is by his bedside. He is again more awake and alert today. He is denying any abdominal pain. He reportedly had a small loose bowel movement through the night. No reported blood in his stool. He denies any nausea or vomiting. He pulled out his NG tube through the night he currently has one in place to assist third one he has approximately 100 mL out of maroon colored drainage. Repeat CT of the abdomen and pelvis reporting similar appearing appendix with gas within the tip. Fluid around the appendix is felt to be secondary to ascites. Gas and stool-filled dilated colon and rectum without focal transition point suggestive of an colonic ileus. Infrarenal abdominal aortic aneurysm measuring up to 5.3 cm. Hepatic cirrhosis with findings suggestive of portal hypertension with trace ascites and splenic collaterals. Right adrenal gland lipid rich adenoma. Nonobstructive bilateral renal calculi Objective - Vital Signs Vital signs: Vital Signs Temp 97.7 F 11/23/22 11:12 Pulse 76 11/23/22 11:12 Resp 20 11/23/22 11:12 BP 138/68 11/23/22 11:12 Pulse Ox 99 11/23/22 11:12 FiO2 28 11/17/22 08:36 Intake & Output 11/22/22 11/23/22 11/23/22 18:59 06:59 18:59 Output Total 426 350 600 Balance -426 -350 -600 Weight 83.5 kg Output: Urine 425 350 600 Stool 1 Other: Voiding Method Indwelling Catheter Indwelling Catheter Indwelling Catheter # Voids 1 # Bowel Movements 1 2 - Exam General appearance: The patient is awake and alert, appears in no acute distress. HET: Head is normocephalic and atraumatic. Conjunctiva pink. Sclera anicteric. Neck: Supple without lymphadenopathy. Abdomen: Soft, obese, nontender, distended. No guarding or rigidity. Extremities: Normal skin color and turgor. No pedal edema Skin: No rashes, no jaundice Neurological: More alert today. Answers questions appropriately. - Labs CBC & Chem 7: 11/23/22 06:07 11/23/22 06:07 Labs: Abnormal Lab Results - Last 24 Hours (Table) 11/22/22 11/22/22 11/23/22 Range/Units 16:17 20:19 06:06 WBC (3.8-10.6) k/uL RBC (4.30-5.90) m/uL Hgb (13.0-17.5) gm/dL Hct (39.0-53.0) % MCV (80.0-100.0) fL MCH (25.0-35.0) pg RDW (11.5-15.5) % Plt Count (150-450) k/uL Macrocytosis Sodium (137-145) mmol/L Potassium (3.5-5.1) mmol/L Chloride (98-107) mmol/L Carbon Dioxide (22-30) mmol/L BUN (9-20) mg/dL Creatinine (0.66-1.25) mg/dL Glucose (74-99) mg/dL POC Glucose (mg/dL) 201 H 164 H 152 H (70-110) mg/dL 11/23/22 11/23/22 11/23/22 Range/Units 06:07 06:07 11:54 WBC 19.6 H (3.8-10.6) k/uL RBC 1.95 L (4.30-5.90) m/uL Hgb 7.5 L (13.0-17.5) gm/dL Hct 22.8 L (39.0-53.0) % MCV 116.6 H D (80.0-100.0) fL MCH 38.4 H (25.0-35.0) pg RDW 20.8 H (11.5-15.5) % Plt Count 94 L (150-450) k/uL Macrocytosis Marked A Sodium 146 H (137-145) mmol/L Potassium 2.9 L (3.5-5.1) mmol/L Chloride 109 H (98-107) mmol/L Carbon Dioxide 33 H (22-30) mmol/L BUN 65 H (9-20) mg/dL Creatinine 1.94 H (0.66-1.25) mg/dL Glucose 137 H (74-99) mg/dL POC Glucose (mg/dL) 138 H (70-110) mg/dL Microbiology - Last 24 Hours (Table) 11/18/22 14:40 Blood Culture - Preliminary Blood Assessment and Plan (1) Liver cirrhosis Narrative/Plan: 82-year-old male who presented with shortness of breath with acute on chronic congestive heart failure with history of multiple comorbidities who recently became confused, with altered mental status changes. He underwent a CT of the brain that showed no acute findings. He did have some mild elevation in his bilirubin and AST with history of alcohol abuse. Ammonia level was drawn and came back at 255. He was started on lactulose 200 mg every 6 hours per rectum with improvement in his ammonia level to 48 today. No prior history of cirrhosis of the liver hepatic encephalopathy however reports long-standing history of alcohol dependency of 40 years. Ultrasound of the liver does report nodular hepatic contour which may reflect underlying cirrhotic liver disease. P atient likely has cirrhosis of the liver from many years of alcohol abuse, with hepatic encephalopathy however need to consider other possible etiologies. Will get AFP, hepatitis panel, alpha-1 antitrypsin, DAVID. Mentation slowly improving. Will need to continue outpatient monitoring and continue with lactulose. Add Xifaxin. Liver serologies workup negative to date, as well as hepatitis panel n onreactive. 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 Current Visit: Yes Status: Acute Code(s): K74.60 - UNSPECIFIED CIRRHOSIS OF LIVER SNOMED Code(s): 76161567 (2) Hepatic encephalopathy Narrative/Plan: Continue lactulose, will transition physician to oral. Continue Xifaxan as ordered. Consider neurology consultation for further evaluation of altered mental status changes. Patient had prolonged symptoms of altered mental status despite improvement in ammonia levels. Current Visit: Yes Status: Acute Code(s): K76.82 - HEPATIC ENCEPHALOPATHY SNOMED Code(s): 20704373 (3) Congestive heart failure Current Visit: Yes Status: Acute Code(s): I50.9 - HEART FAILURE, UNSPECIFIED SNOMED Code(s): 16987449 (4) Atrial fibrillation Current Visit: Yes Status: Acute Code(s): I48.91 - UNSPECIFIED ATRIAL FIBRILLATION SNOMED Code(s): 85149861 (5) Dyspnea Current Visit: Yes Status: Acute Code(s): R06.00 - DYSPNEA, UNSPECIFIED SNOMED Code(s): 740272717 (6) Chronic kidney disease Current Visit: Yes Status: Acute Code(s): N18.9 - CHRONIC KIDNEY DISEASE, UNSPECIFIED SNOMED Code(s): 320817258 (7) MDS (myelodysplastic syndrome) Current Visit: No Status: Chronic Priority: High Code(s): D46.9 - MYELODYSPLASTIC SYNDROME, UNSPECIFIED SNOMED Code(s): 238546840 (8) Hypokalemia Narrative/Plan: Replace potassium per protocol Current Visit: Yes Status: Acute Code(s): E87.6 - HYPOKALEMIA SNOMED Code(s): 46538050 (9) Ileus Narrative/Plan: Discussed with general surgery for possible rectal tube Current Visit: Yes Status: Acute Code(s): K56.7 - ILEUS, UNSPECIFIED SNOMED Code(s): 327888498 Plan: 1. Continue symptomatic and supportive care 2. Change lactulose to 200 g per rectum twice a day 3. Add Xifaxin 550 mg BID 4. Continue alcohol abstinence and avoid hepatotoxic medications 5. Discussed with general surgery for possible rectal tube 6. Replace potassium per protocol 7. Continue with recommendations from general surgery 8. Continue medical management per primary team and multiple consultants 9. Follow-up with gastroenterology in 1-2 weeks following discharge Thank you for allowing us to participate in the care of the patient, the GI service will sign off, gastroenterology will not be available at the hospital this weekend and through next week. If further evaluation by gastroenterology is required the patient will need transfer as per the primary team's discretion. Dr. Devan Moody I agree with the dictator's note, documented as a scribe by Mary West.
--- NOTE | 2022-11-23 13:41 | P.PN ---
Subjective Progress Note Date: 11/23/22 CHIEF COMPLAINT: Shortness of breath HISTORY OF PRESENT ILLNESS: Patient reports no abdominal pain. He is lying in bed comfortably. He did have a bowel movement. Currently has NG tube in place with dark output.. Patient reports no pain with movement. Patient's abdomen does appear more distended today. Afebrile. WBC 23.9 down to 19.6 Hgb 7.5 platelets 94 sodium is 146 potassium is 2.9 creatinine 1.94. Computed tomography scan abdomen and pelvis similar appearing appendix with gas within the tip. It fluid around the appendix is felt to be secondary to ascites. Gas and stool filled dilated colon and rectum without focal transition point suggestive of an colonic ileus. Infrarenal abdominal aortic aneurysm measuring up to 5.3 cm. Hepatic cirrhosis with findings suggestive of portal hypertension with trace ascites and splenic collaterals. Right adrenal gland lipid rich adenoma. Nonobstructive bilateral renal calculi. Patient seen and examined with Dr. garcia. Computed tomography scan findings reviewed by Dr. garcia PHYSICAL EXAM: VITAL SIGNS: Reviewed. GENERAL: Well-developed in no acute distress. ABDOMEN: Is more distended today. Nontender NEUROLOGIC: Patient appears less confused. And more alert. ASSESSMENT: 1. Colonic ileus 2. Appendicitis ruled out. No evidence of acute appendicitis on CAT scan. Fluid around the appendix is likely ascites 3. Leukocytosis 4. hepatic encephalopathy with alcoholic cirrhosis 5. CHF exacerbation 6. Hypokalemia 7. Hypernatremia PLAN: -Keep patient nothing by mouth except for ice chips -Dulcolax suppository ordered daily -Continue NG tube for decompression -Patient is extremely high risk for any surgical attention. No surgical intervention planned -Continue antibiotics -Continue to replace electrolytes -Encourage patient to increase activity level -Continue supportive care Physician Flask Handler note has been reviewed by physician. Signing provider agrees with the documented findings, assessment, and plan of care. Objective - Vital Signs Vital signs: Vital Signs Temp 97.5 F L 11/23/22 04:00 Pulse 68 11/23/22 08:44 Resp 20 11/23/22 04:00 BP 111/64 11/23/22 04:00 Pulse Ox 98 11/23/22 08:44 FiO2 28 11/17/22 08:36 Intake & Output 11/22/22 11/23/22 11/23/22 18:59 06:59 18:59 Output Total 426 350 Balance -426 -350 Weight 83.5 kg Output: Urine 425 350 Stool 1 Other: Voiding Method Indwelling Catheter Indwelling Catheter # Bowel Movements 1 - Labs CBC & Chem 7: 11/23/22 06:07 11/23/22 06:07 Labs: Abnormal Lab Results - Last 24 Hours (Table) 11/22/22 11/22/22 11/22/22 Range/Units 07:36 11:37 16:17 WBC 23.9 H (3.8-10.6) k/uL RBC 1.99 L (4.30-5.90) m/uL Hgb 7.5 L (13.0-17.5) gm/dL Hct 24.2 L (39.0-53.0) % MCV 121.6 H D (80.0-100.0) fL MCH 37.6 H (25.0-35.0) pg MCHC 30.9 L (31.0-37.0) g/dL RDW 21.2 H (11.5-15.5) % Plt Count 73 L (150-450) k/uL Neutrophils # 21.3 H (1.3-7.7) k/uL Macrocytosis Marked A Sodium (137-145) mmol/L Potassium (3.5-5.1) mmol/L Chloride (98-107) mmol/L Carbon Dioxide (22-30) mmol/L BUN (9-20) mg/dL Creatinine (0.66-1.25) mg/dL Glucose (74-99) mg/dL POC Glucose (mg/dL) 173 H 201 H (70-110) mg/dL 11/22/22 11/23/22 11/23/22 Range/Units 20:19 06:06 06:07 WBC (3.8-10.6) k/uL RBC (4.30-5.90) m/uL Hgb (13.0-17.5) gm/dL Hct (39.0-53.0) % MCV (80.0-100.0) fL MCH (25.0-35.0) pg MCHC (31.0-37.0) g/dL RDW (11.5-15.5) % Plt Count (150-450) k/uL Neutrophils # (1.3-7.7) k/uL Macrocytosis Sodium 146 H (137-145) mmol/L Potassium 2.9 L (3.5-5.1) mmol/L Chloride 109 H (98-107) mmol/L Carbon Dioxide 33 H (22-30) mmol/L BUN 65 H (9-20) mg/dL Creatinine 1.94 H (0.66-1.25) mg/dL Glucose 137 H (74-99) mg/dL POC Glucose (mg/dL) 164 H 152 H (70-110) mg/dL 11/23/22 Range/Units 06:07 WBC 19.6 H (3.8-10.6) k/uL RBC 1.95 L (4.30-5.90) m/uL Hgb 7.5 L (13.0-17.5) gm/dL Hct 22.8 L (39.0-53.0) % MCV 116.6 H D (80.0-100.0) fL MCH 38.4 H (25.0-35.0) pg MCHC (31.0-37.0) g/dL RDW 20.8 H (11.5-15.5) % Plt Count 94 L (150-450) k/uL Neutrophils # (1.3-7.7) k/uL Macrocytosis Marked A Sodium (137-145) mmol/L Potassium (3.5-5.1) mmol/L Chloride (98-107) mmol/L Carbon Dioxide (22-30) mmol/L BUN (9-20) mg/dL Creatinine (0.66-1.25) mg/dL Glucose (74-99) mg/dL POC Glucose (mg/dL) (70-110) mg/dL Microbiology - Last 24 Hours (Table) 11/18/22 14:40 Blood Culture - Preliminary Blood
--- NOTE | 2022-11-23 14:20 | P.PN ---
Subjective Progress Note Date: 11/23/22 This is an 82-year-old the patient was hospitalized 2 days back because of shortness of breath, orthopnea, paroxysmal nocturnal dyspnea and significant edema in the lower extremity bilaterally. The patient is morbidly obese with a BMI of 40.4. The patient has obstructive sleep apnea. The patient also has chronic kidney disease, stage III, diabetes mellitus type 2, chronic into fibrillation and signs of chronic right-sided heart failure. The patient is also [id number] smoking history. He was not diagnosed having COPD in the past. The maternal Lasix on outpatient basis. Since his admission, the patient denies having any major improvement. Continues to have shortness of breath cough and congestion and extensive edema and his scrotum, abdomen and lower oximetry is bilaterally. Based on that, Pulmicort consultation was requested. The patient is on long-term and coagulation with Eliquis. The patient has no chest pain. No syncope. He is producing urine output and the patient has been negative fluid balance over the past 24 hours. Nevertheless, the balance of the fluid has not been enough to improve any of his symptoms. His chest x-ray at time of admission was consistent with CHF with bilateral pleural effusions and cardiac megaly and bibasilar pulmonary infiltrates. There is evidence of diffuse interstitial pattern. Blood work from today shows a GFR of 36, BUN is 29 with a creatinine of 1.7 and a sodium level is at 132. The discomfort at 6.8 with a hemoglobin of 8 and a platelet count of 57. Glucose at 127. Echocardiogram showed LV systolic function, borderline normal, dilated RV, severe pulmonary hypertension and moderate to severe mitral regurgitation and moderate degree of tricuspid regurgitation. The estimated the right-sided pressure was 64 mmHg. On today's evaluation of 11/13/2022, the patient is feeling better. The patient is less short of breath compared to yesterday and the patient has diabetes at least 3 L and the neck fluid balance is -3 L over the past 24 hours. He reports improvement of the abdominal swelling in the lower extremity edema. The patient remains on Lasix drip at 5 mg an hour and the patient is also Zaroxolyn. Nephrology has been consulted. Renal function remains stable. He is also on examination bronchodilators and steroids as the patient was told to have a component of COPD exacerbation also. CHF and interstitial edema and the findings are essentially stable. The patient is going 7.4 with a hemoglobin of 8.1. BUN is at 35 with a creatinine of 1.5 and a sodium level is at 133. Overall responses has been positive. Awaiting nephrology consultation. Cardiology has also been involved in the case as the patient has right-sided heart failure, chronic A. fib and mitral regurgitation. On 11/14/2022, patient is doing well. The patient continues to diurese adequately. The patient remains on Lasix drip at 5 mg an hour and the patient is also Zaroxolyn 5 mg by mouth twice a day. Fluid balance is negative in the order of more than 3 L and the patient continues to lose weight. The patient is improved and he is less short of breath. The patient is currently on 2 L of O2 nasal cannula with a pulse ox of 99 200%. No chest pain. No shortness of breath. Lower extremity edema, abdominal wall edema and scrotal edema or improving. On today's blood work, the WBC count 11.9 with a hemoglobin of 7.5. BUN is 45 with a creatinine 0.9 and his sodium level is at 134. He remains on bronchodilators. Remains on IV steroids. The patient remained atrial fibrillation and he has chronic mitral regurgitation. 11/13/2022, the patient remains on Lasix drip and is currently on 10 mg an hour. Doing well. No respiratory difficulties. Is also on Zaroxolyn 5 mg by mouth on a daily basis. The BUN is at 53 with a creatinine of 1.6 which is improved compared to yesterday. Sodium level is at 135. The echoes at 7.7 with a hemoglobin of 7.8 and a platelet count of 55. Noted the patient has chronic no rmocytic. The platelet count remains unchanged. The overall fluid balance has been negative and the patient weight is currently down to 110 kg and he is in negative fluid balance of at least 3.4 L over the past 24 hours. 11/16/2022, condition is essentially stable and the patient remains on Lasix drip at 10 mg an hour and Zaroxolyn 5 mg by mouth daily. The patient's body weight is down to 104 kg yesterday and the patient has been another 3.5 L negative fluid balance since yesterday. The patient is stable. He is a 65 with a creatinine of 2.01. Sodium is at 134. Serum bicarb is at 39. The patient is showing marked improvement in his lower extremity edema. He is still complaining of some exertional dyspnea. He remains on oxygen at 2 L/m nasal cannula. The patient otherwise has no complaints. Remains on anticoagulation with Eliquis 2.5 mg twice a day. Rest of the home medications are unchanged and the patient is also on a prednisone burst taper starting with 40 mg by mouth da [place]. 11/17/2022, the patient remains on Lasix drip and Zaroxolyn. The patient's weight is down to 97 kg and the patient has lost another 4 L of fluid balance over the past 24 hours. The breathing is stable for now. He is still on 2 L of oxygen by nasal cannula. He has developed some metabolic alkalosis. There is essentially related to diuresis. Serum bicarbs of 44. BUN is at 74 with a crea tinine 1.9. The hemoglobin is at 7.7. Remains on anticoagulation. Also completing a course of prednisone burst taper. On 11/18/2022, the patient's condition is decompensated. Overnight, the patient became aggressive, confused and agitated. He was given samples 25 mg at bedtime it was also given Haldol IV. This morning is more lethargic. He is aggressively diuresed with Lasix and Zaroxolyn. The patient is currently off Lasix. He was switched to oral Demadex and I discontinued Zaroxolyn. Note that the patient has become quite alkalotic. He received Diamox and the blood gas that was done today shows a pH of 7.3 with a pCO2 of 40. The pO2 was 44 on FiO2 of 28%. At the same time, the patient's serum bicarb was at 34 and this dropped from 41. Rest of the blood work shows a BUN of 69 and a creatinine of 1.9 and sodium levels of 136. Potassium levels at 3.4. WBC count is at 17.4 with a hemoglobin of 7.8 and a platelet count of 82. His serum ammonia level was found to be quite elevated at 255. The patient was started on lactulose enemas. CAT scan of the brain showed no acute abnormalities. A repeat chest x-ray was done today shows cardiomegaly with mild vascular congestion and overall picture is essentially improved. Reevaluated today on 11/19/22, patient, patient is sleeping, his is at bedside, apparently he was given some sedation earlier today for extreme a gitation and confusion. Patient has been receiving Haldol. Patient remains on diuretics, remains on treatment for hyperammonemia level. Intermittently encephalopathic and agitated, although his ammonia level is down to 48 today. CBC is relatively normal except for hemoglobin of 7.8 WBC count of 17.4, INR is 1.6 Reevaluated today on 11/20/2022, patient seems to be much better today, more awake, still a bit confused, is at bedside. Patient is on room air, does not seem to be in any distress. Labs showed hemoglobin of 7.7 elevated sodium of 148 low potassium of 2.7 and renal profile about the same with creatinine of 1.65. His liver enzymes showed a elevated total bilirubin of 3.6 ALT of 57 and AST of 172. Seen by gastroenterology on consultation, felt to have liver cirrhosis hepatic encephalopathy congestive heart failure, the recommendation is to continue lactulose, continue supportive care measures, and avoidance of hepatotoxic drugs. Reevaluated today on 11/21/2022, continues to do well, confusion is improving but not completely resolved. Ammonia level is back to normal. Patient is on room air, not in any distress, continues to have significant electrolytes abnormali ties with hypernatremia sodium of 148 hypokalemia potassium of 2.8 borderline renal functioning with GFR of 38. Patient is hemodynamically stable, O2 sats is on the percent on 4 L. The patient is seen today 11/22/2022 in follow-up on the selective care unit. He is currently awake and alert. Maintaining O2 saturations in the upper 90s on 4 L/m per nasal cannula. He's been afebrile. Hemodynamically stable. Computed tomography scan of the abdomen and pelvis revealed a dilated appendix with gas within the tip. There is some nonspecific surrounding fluid/stranding. Findings could be seen with acute appendicitis. Gas and stool filled dilated colon and rectum without focal transition point suggestive of an colonic ileus. 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 Hepatic cirrhosis with findings suggestive of portal hypertension with trace ascites and splenic collaterals. Right adrenal gland lipid rich adenoma. Nonobstructive bilateral renal calculi. Surgical services are following. Nasogastric tube has been placed. Today's chest x-ray reveals cardiomegaly. Chronic parenchymal changes without new focal airspace opacity, pleural effusion or pneumothorax. Blood cultures revealed no growth. White count 23.9. Hemoglobin 7.5. MCV is 122. Platelet count 73,000. Sodium 136. Potassium 3.1. Bicarb 30. BUN 59. Creatinine 1.74. Glucose 337. He is continued on DuoNeb inhalations, Pulmicort inhalations, prednisone taper. She is on Xifaxan, Zosyn, Levaquin. Lovenox for anticoagulation. The patient is seen today 11/23/2022 in follow-up on the selective care unit. He is awake, alert, oriented. Resting fairly comfortably in bed. Denies any worsening shortness of breath, cough or congestion. Denies any significant abdominal pain. Nasogastric tube remains in place. Chest x-ray reveals cardiomegaly. Chronic parenchymal changes without any new focal airspace opacities, pleural effusion or pneumothorax. He is maintaining good O2 saturations in the upper 90s on 2 L/m per nasal cannula. He is afebrile. Hemodynamically stable. White count 19.6. Hemoglobin 7.5. Platelets 94,000. Sodium 146. Potassium 2.9. Bicarb 33. BUN 65. Creatinine 1.94. Glucose 137. He remains on rifaximin and Zosyn. Continued on bronchodilators. Objective - Vital Signs Vital signs: Vital Signs Temp 97.7 F 11/23/22 11:12 Pulse 76 11/23/22 13:27 Resp 20 11/23/22 11:12 BP 138/68 11/23/22 11:12 Pulse Ox 99 11/23/22 11:12 FiO2 28 11/17/22 08:36 Intake & Output 11/22/22 11/23/22 11/23/22 18:59 06:59 18:59 Output Total 426 350 600 Balance -426 -350 -600 Weight 83.5 kg Output: Urine 425 350 600 Stool 1 Other: Voiding Method Indwelling Catheter Indwelling Catheter Indwelling Catheter # Voids 1 # Bowel Movements 1 2 - Exam GENERAL EXAM: Alert, pleasant 82-year-old male, resting in bed, on 2 L nasal cannula, comfortable in no apparent distress. HEAD: Normocephalic. EYES: Normal reaction of pupils, equal size. NOSE: Nasogastric tube secured in place. Clear with pink turbinates. THROAT: No erythema or exudates. NECK: No masses, no JVD. CHEST: No chest wall deformity. LUNGS: Equal air entry with no crackles, wheeze, rhonchi or dullness. CVS: S1 and S2 normal with no audible murmur, regular rhythm. ABDOMEN: Distended, hypoactive bowel sounds, no guarding or rigidity. SPINE: No scoliosis or deformity SKIN: No rashes CENTRAL NERVOUS SYSTEM: No focal deficits, tone is normal in all 4 extremities. EXTREMITIES: There is 1+ peripheral edema. No clubbing, no cyanosis. Peripheral pulses are intact. - Labs CBC & Chem 7: 11/23/22 06:07 11/23/22 06:07 Labs: Abnormal Lab Results - Last 24 Hours (Table) 11/22/22 11/22/22 11/23/22 Range/Units 16:17 20:19 06:06 WBC (3.8-10.6) k/uL RBC (4.30-5.90) m/uL Hgb (13.0-17.5) gm/dL Hct (39.0-53.0) % MCV (80.0-100.0) fL MCH (25.0-35.0) pg RDW (11.5-15.5) % Plt Count (150-450) k/uL Macrocytosis Sodium (137-145) mmol/L Potassium (3.5-5.1) mmol/L Chloride (98-107) mmol/L Carbon Dioxide (22-30) mmol/L BUN (9-20) mg/dL Creatinine (0.66-1.25) mg/dL Glucose (74-99) mg/dL POC Glucose (mg/dL) 201 H 164 H 152 H (70-110) mg/dL 11/23/22 11/23/22 11/23/22 Range/Units 06:07 06:07 11:54 WBC 19.6 H (3.8-10.6) k/uL RBC 1.95 L (4.30-5.90) m/uL Hgb 7.5 L (13.0-17.5) gm/dL Hct 22.8 L (39.0-53.0) % MCV 116.6 H D (80.0-100.0) fL MCH 38.4 H (25.0-35.0) pg RDW 20.8 H (11.5-15.5) % Plt Count 94 L (150-450) k/uL Macrocytosis Marked A Sodium 146 H (137-145) mmol/L Potassium 2.9 L (3.5-5.1) mmol/L Chloride 109 H (98-107) mmol/L Carbon Dioxide 33 H (22-30) mmol/L BUN 65 H (9-20) mg/dL Creatinine 1.94 H (0.66-1.25) mg/dL Glucose 137 H (74-99) mg/dL POC Glucose (mg/dL) 138 H (70-110) mg/dL Microbiology - Last 24 Hours (Table) 11/18/22 14:40 Blood Culture - Preliminary Blood Assessment and Plan Assessment: Acute hepatic encephalopathy, suspect liver cirrhosis secondary to remote alcohol abuse. Computed tomography scan of the abdomen and pelvis revealed a dilated appendix with gas within the tip. There is some nonspecific surrounding fluid/stranding. Findings could be seen with acute appendicitis. Gas and stool filled dilated colon and rectum without focal transition point suggestive of an colonic ileus. 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 Hepatic cirrhosis with findings suggestive of portal hypertension with trace ascites and splenic collaterals. Right adrenal gland lipid rich adenoma. Nonobstructive bilateral renal calculi. Surgical services are following. Nasogastric tube has been placed. Altered mental status secondary to above, acute metabolic toxic encephalopathy, improved Acute diastolic congestive heart failure Acute on chronic kidney disease Acute metabolic alkalosis secondary to diuretics Moderate severe pulmonary hypertension Moderate severe mitral regurgitation History of mild COPD Chronic atrial fibrillation History of colonic polyps Type 2 diabetes with diabetic nephropathy History of CVA without any residual deficit Plan: The patient was seen and evaluated Chest x-ray, labs and medications reviewed Less abdominal discomfort, NG tube in place Improved mentation Continue bronchodilators Continue antibiotics Titrate the FiO2 as tolerated We will continue to follow I have personally seen and examined the patient, performed the documentation and the assessment and plan as written. Number of minutes spent on the visit: 10.
[2022-11-23] MEDS: bisacodyL 10 MG SUPP RECTAL SCH (14:45)
--- NOTE | 2022-11-23 15:26 | P.PN ---
Subjective Patient is seen for follow-up for acute kidney injury. Currently off of diuretics and maintained on IV fluids. Good UOP Serum creatinine at 1.7- 1.9 mg/dL Mentation is much improved. Appears to be back to baseline IV fluids were switched to 0.45NS yesterday as sodium was 136. Sodium 148 today. NG tube in place. Objective - Vital Signs Vital signs: Vital Signs Temp 97.7 F 11/23/22 11:12 Pulse 76 11/23/22 13:27 Resp 20 11/23/22 11:12 BP 138/68 11/23/22 11:12 Pulse Ox 99 11/23/22 11:12 FiO2 28 11/17/22 08:36 Intake & Output 11/22/22 11/23/22 11/23/22 18:59 06:59 18:59 Output Total 426 350 600 Balance -426 -350 -600 Weight 83.5 kg Output: Urine 425 350 600 Stool 1 Other: Voiding Method Indwelling Catheter Indwelling Catheter Indwelling Catheter # Voids 1 # Bowel Movements 1 2 - Exam Patient is awake. Sitting up in bed. Able to communicate. Mentation at baseline NG tube in place. Examination of the heart S1 and S2 Examination of the lungs bilateral breath sounds are heard Abdomen is soft nontender Examination lower extremities shows no significant edema - Labs CBC & Chem 7: 11/23/22 06:07 11/23/22 06:07 Labs: Abnormal Lab Results - Last 24 Hours (Table) 11/22/22 11/22/22 11/23/22 Range/Units 16:17 20:19 06:06 WBC (3.8-10.6) k/uL RBC (4.30-5.90) m/uL Hgb (13.0-17.5) gm/dL Hct (39.0-53.0) % MCV (80.0-100.0) fL MCH (25.0-35.0) pg RDW (11.5-15.5) % Plt Count (150-450) k/uL Macrocytosis Sodium (137-145) mmol/L Potassium (3.5-5.1) mmol/L Chloride (98-107) mmol/L Carbon Dioxide (22-30) mmol/L BUN (9-20) mg/dL Creatinine (0.66-1.25) mg/dL Glucose (74-99) mg/dL POC Glucose (mg/dL) 201 H 164 H 152 H (70-110) mg/dL 11/23/22 11/23/22 11/23/22 Range/Units 06:07 06:07 11:54 WBC 19.6 H (3.8-10.6) k/uL RBC 1.95 L (4.30-5.90) m/uL Hgb 7.5 L (13.0-17.5) gm/dL Hct 22.8 L (39.0-53.0) % MCV 116.6 H D (80.0-100.0) fL MCH 38.4 H (25.0-35.0) pg RDW 20.8 H (11.5-15.5) % Plt Count 94 L (150-450) k/uL Macrocytosis Marked A Sodium 146 H (137-145) mmol/L Potassium 2.9 L (3.5-5.1) mmol/L Chloride 109 H (98-107) mmol/L Carbon Dioxide 33 H (22-30) mmol/L BUN 65 H (9-20) mg/dL Creatinine 1.94 H (0.66-1.25) mg/dL Glucose 137 H (74-99) mg/dL POC Glucose (mg/dL) 138 H (70-110) mg/dL Microbiology - Last 24 Hours (Table) 11/18/22 14:40 Blood Culture - Preliminary Blood Assessment and Plan Assessment: 1. Acute kidney injury cardiorenal, status post diuretics, restarted IV fluids. UA is benign. Renal function improved 2. Chronic kidney disease NKF stage III a secondary to nephrosclerosis with baseline creatinine 1.2-1.3 mg/dL 3. Severe pulmonary hypertension with moderate to severe mitral regurgitation and chronic lower extremity edema 4. Acute on chronic CHF with preserved ejection fraction 5. Coronary artery disease with history of previous coronary stenting 6. Metabolic alkalosis secondary to diuresis, improved with hydration. 7. Hypernatremia associated with free water deficit. Plan: Replace potassium Change IV fluids to D5W at 50ml/hr Repeat labs in a.m.
[2022-11-23 16:48] LABS: Glucose,Whole Blood 189 mg/dL (70-110)
[2022-11-23 20:18] LABS: Glucose,Whole Blood 191 mg/dL (70-110)
[2022-11-23] MEDS: TAMSULOSIN 0.4 MG CAP.ER.24H PO SCH (20:31)
[2022-11-23] MEDS: LATANOPROST 0.005% OPHTH DROPS 2.5 ML BTL BOTH EYES SCH (21:06)
[2022-11-23] MEDS: DORZOLAMIDE-TIMOLOL 2.23%/0.68 10ML BTL BOTH EYES SCH (21:06)
[2022-11-24 06:09] LABS: Glucose,Whole Blood 156 mg/dL (70-110)
[2022-11-24] MEDS: PANTOPRAZOLE 40 MG TABLET PO SCH (06:16)
[2022-11-24] MEDS: INSULIN ASPART (NovoLOG) 100 UNIT/ML VIAL SQ SCH ×4 (06:18→21:36)
[2022-11-24] MEDS: DEXTROSE 5% IN WATER 1,000 ML IV SCH ×2 (06:19→08:39)
[2022-11-24] MEDS: IPRATROPIUM-ALBUTEROL 3 ML NEB INHALATION SCH ×3 (07:29→20:35)
[2022-11-24] MEDS: BUDESONIDE 0.5 MG/2 ML NEBU INHALATION SCH ×2 (07:29→20:35)
[2022-11-24] MEDS: PIPERACILLIN-TAZOBACTAM 3.375 GM in SODIUM CHLORIDE 0.9% 100 ML IVPB SCH ×2 (08:37→15:30)
[2022-11-24] MEDS: ENOXAPARIN 60 MG/0.6 ML SYRINGE SQ SCH ×2 (08:37→21:36)
[2022-11-24] MEDS: MULTIVITAMINS, THERA 1 EACH TAB PO SCH (08:38)
[2022-11-24] MEDS: RIFAXIMIN 550 MG TABLET PO SCH ×2 (08:38→21:35)
[2022-11-24] MEDS: bisacodyL 10 MG SUPP RECTAL SCH ×2 (08:38→09:04)
[2022-11-24] MEDS: FERROUS SULFATE 325 MG TAB PO SCH (08:38)
[2022-11-24] MEDS: ATORVASTATIN 40 MG TAB PO SCH (08:38)
[2022-11-24] MEDS: POTASSIUM CHLORIDE ER 20 MEQ TAB.ER PO SCH (08:38)
[2022-11-24] MEDS: predniSONE 20 MG TAB PO SCH (08:38)
[2022-11-24] MEDS: THIAMINE 100 MG/ML 2 ML VIAL IVP SCH (08:38)
[2022-11-24] MEDS: LACTULOSE 200 GM/300 ML (FROM 1/2 GAL JUG) RECTAL SCH ×2 (09:01→19:35)
--- NOTE | 2022-11-24 09:25 | P.PN ---
Subjective Progress Note Date: 11/24/22 Principal diagnosis: Ileus Patient seems to be doing better today. Ammonia level is improved after lactulose doses. Denies abdominal pain. Decreasing NG tube output. Feels less bloated. He is having diarrhea. Objective - Vital Signs Vital signs: Vital Signs Temp 97.4 F L 11/24/22 08:35 Pulse 65 11/24/22 08:35 Resp 18 11/24/22 08:35 BP 117/60 11/24/22 08:35 Pulse Ox 98 11/24/22 08:35 FiO2 28 11/17/22 08:36 Intake & Output 11/23/22 11/24/22 11/24/22 18:59 06:59 18:59 Output Total 1300 1250 550 Balance -1300 -1250 -550 Output: Gastric Drainage 700 250 Drainage 700 NG TUBE 700 Urine 600 550 300 Other: Voiding Method Indwelling Catheter Indwelling Catheter Indwelling Catheter # Voids 1 # Bowel Movements 2 1 1 - Exam Abdomen: Soft, mild distention, nontender - Labs CBC & Chem 7: 11/23/22 06:07 11/23/22 06:07 Labs: Abnormal Lab Results - Last 24 Hours (Table) 11/23/22 11/23/22 11/23/22 Range/Units 11:54 16:46 20:16 POC Glucose (mg/dL) 138 H 189 H 191 H (70-110) mg/dL 11/24/22 Range/Units 06:07 POC Glucose (mg/dL) 156 H (70-110) mg/dL Assessment and Plan (1) Ileus Narrative/Plan: 82-year-old male with ileus, CHF, cirrhosis. Patient slowly improving. Keep nasogastric tube today. Hopefully can remove tomorrow. Hold Dulcolax suppositories for now. Will follow. Current Visit: Yes Status: Acute Code(s): K56.7 - ILEUS, UNSPECIFIED SNOMED Code(s): 937868309
--- NOTE | 2022-11-24 10:20 | P.PN ---
Subjective Progress Note Date: 11/24/22 This is an 82-year-old the patient was hospitalized 2 days back because of shortness of breath, orthopnea, paroxysmal nocturnal dyspnea and significant edema in the lower extremity bilaterally. The patient is morbidly obese with a BMI of 40.4. The patient has obstructive sleep apnea. The patient also has chronic kidney disease, stage III, diabetes mellitus type 2, chronic into fibrillation and signs of chronic right-sided heart failure. The patient is also [id number] smoking history. He was not diagnosed having COPD in the past. The maternal Lasix on outpatient basis. Since his admission, the patient denies having any major improvement. Continues to have shortness of breath cough and congestion and extensive edema and his scrotum, abdomen and lower oximetry is bilaterally. Based on that, Pulmicort consultation was requested. The patient is on long-term and coagulation with Eliquis. The patient has no chest pain. No syncope. He is producing urine output and the patient has been negative fluid balance over the past 24 hours. Nevertheless, the balance of the fluid has not been enough to improve any of his symptoms. His chest x-ray at time of admission was consistent with CHF with bilateral pleural effusions and cardiac megaly and bibasilar pulmonary infiltrates. There is evidence of diffuse interstitial pattern. Blood work from today shows a GFR of 36, BUN is 29 with a creatinine of 1.7 and a sodium level is at 132. The discomfort at 6.8 with a hemoglobin of 8 and a platelet count of 57. Glucose at 127. Echocardiogram showed LV systolic function, borderline normal, dilated RV, severe pulmonary hypertension and moderate to severe mitral regurgitation and moderate degree of tricuspid regurgitation. The estimated the right-sided pressure was 64 mmHg. On today's evaluation of 11/13/2022, the patient is feeling better. The patient is less short of breath compared to yesterday and the patient has diabetes at least 3 L and the neck fluid balance is -3 L over the past 24 hours. He reports improvement of the abdominal swelling in the lower extremity edema. The patient remains on Lasix drip at 5 mg an hour and the patient is also Zaroxolyn. Nephrology has been consulted. Renal function remains stable. He is also on examination bronchodilators and steroids as the patient was told to have a component of COPD exacerbation also. CHF and interstitial edema and the findings are essentially stable. The patient is going 7.4 with a hemoglobin of 8.1. BUN is at 35 with a creatinine of 1.5 and a sodium level is at 133. Overall responses has been positive. Awaiting nephrology consultation. Cardiology has also been involved in the case as the patient has right-sided heart failure, chronic A. fib and mitral regurgitation. On 11/14/2022, patient is doing well. The patient continues to diurese adequately. The patient remains on Lasix drip at 5 mg an hour and the patient is also Zaroxolyn 5 mg by mouth twice a day. Fluid balance is negative in the order of more than 3 L and the patient continues to lose weight. The patient is improved and he is less short of breath. The patient is currently on 2 L of O2 nasal cannula with a pulse ox of 99 200%. No chest pain. No shortness of breath. Lower extremity edema, abdominal wall edema and scrotal edema or improving. On today's blood work, the WBC count 11.9 with a hemoglobin of 7.5. BUN is 45 with a creatinine 0.9 and his sodium level is at 134. He remains on bronchodilators. Remains on IV steroids. The patient remained atrial fibrillation and he has chronic mitral regurgitation. 11/13/2022, the patient remains on Lasix drip and is currently on 10 mg an hour. Doing well. No respiratory difficulties. Is also on Zaroxolyn 5 mg by mouth on a daily basis. The BUN is at 53 with a creatinine of 1.6 which is improved compared to yesterday. Sodium level is at 135. The echoes at 7.7 with a hemoglobin of 7.8 and a platelet count of 55. Noted the patient has chronic no rmocytic. The platelet count remains unchanged. The overall fluid balance has been negative and the patient weight is currently down to 110 kg and he is in negative fluid balance of at least 3.4 L over the past 24 hours. 11/16/2022, condition is essentially stable and the patient remains on Lasix drip at 10 mg an hour and Zaroxolyn 5 mg by mouth daily. The patient's body weight is down to 104 kg yesterday and the patient has been another 3.5 L negative fluid balance since yesterday. The patient is stable. He is a 65 with a creatinine of 2.01. Sodium is at 134. Serum bicarb is at 39. The patient is showing marked improvement in his lower extremity edema. He is still complaining of some exertional dyspnea. He remains on oxygen at 2 L/m nasal cannula. The patient otherwise has no complaints. Remains on anticoagulation with Eliquis 2.5 mg twice a day. Rest of the home medications are unchanged and the patient is also on a prednisone burst taper starting with 40 mg by mouth da [place]. 11/17/2022, the patient remains on Lasix drip and Zaroxolyn. The patient's weight is down to 97 kg and the patient has lost another 4 L of fluid balance over the past 24 hours. The breathing is stable for now. He is still on 2 L of oxygen by nasal cannula. He has developed some metabolic alkalosis. There is essentially related to diuresis. Serum bicarbs of 44. BUN is at 74 with a crea tinine 1.9. The hemoglobin is at 7.7. Remains on anticoagulation. Also completing a course of prednisone burst taper. On 11/18/2022, the patient's condition is decompensated. Overnight, the patient became aggressive, confused and agitated. He was given samples 25 mg at bedtime it was also given Haldol IV. This morning is more lethargic. He is aggressively diuresed with Lasix and Zaroxolyn. The patient is currently off Lasix. He was switched to oral Demadex and I discontinued Zaroxolyn. Note that the patient has become quite alkalotic. He received Diamox and the blood gas that was done today shows a pH of 7.3 with a pCO2 of 40. The pO2 was 44 on FiO2 of 28%. At the same time, the patient's serum bicarb was at 34 and this dropped from 41. Rest of the blood work shows a BUN of 69 and a creatinine of 1.9 and sodium levels of 136. Potassium levels at 3.4. WBC count is at 17.4 with a hemoglobin of 7.8 and a platelet count of 82. His serum ammonia level was found to be quite elevated at 255. The patient was started on lactulose enemas. CAT scan of the brain showed no acute abnormalities. A repeat chest x-ray was done today shows cardiomegaly with mild vascular congestion and overall picture is essentially improved. Reevaluated today on 11/19/22, patient, patient is sleeping, his is at bedside, apparently he was given some sedation earlier today for extreme a gitation and confusion. Patient has been receiving Haldol. Patient remains on diuretics, remains on treatment for hyperammonemia level. Intermittently encephalopathic and agitated, although his ammonia level is down to 48 today. CBC is relatively normal except for hemoglobin of 7.8 WBC count of 17.4, INR is 1.6 Reevaluated today on 11/20/2022, patient seems to be much better today, more awake, still a bit confused, is at bedside. Patient is on room air, does not seem to be in any distress. Labs showed hemoglobin of 7.7 elevated sodium of 148 low potassium of 2.7 and renal profile about the same with creatinine of 1.65. His liver enzymes showed a elevated total bilirubin of 3.6 ALT of 57 and AST of 172. Seen by gastroenterology on consultation, felt to have liver cirrhosis hepatic encephalopathy congestive heart failure, the recommendation is to continue lactulose, continue supportive care measures, and avoidance of hepatotoxic drugs. Reevaluated today on 11/21/2022, continues to do well, confusion is improving but not completely resolved. Ammonia level is back to normal. Patient is on room air, not in any distress, continues to have significant electrolytes abnormali ties with hypernatremia sodium of 148 hypokalemia potassium of 2.8 borderline renal functioning with GFR of 38. Patient is hemodynamically stable, O2 sats is on the percent on 4 L. The patient is seen today 11/22/2022 in follow-up on the selective care unit. He is currently awake and alert. Maintaining O2 saturations in the upper 90s on 4 L/m per nasal cannula. He's been afebrile. Hemodynamically stable. Computed tomography scan of the abdomen and pelvis revealed a dilated appendix with gas within the tip. There is some nonspecific surrounding fluid/stranding. Findings could be seen with acute appendicitis. Gas and stool filled dilated colon and rectum without focal transition point suggestive of an colonic ileus. 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 Hepatic cirrhosis with findings suggestive of portal hypertension with trace ascites and splenic collaterals. Right adrenal gland lipid rich adenoma. Nonobstructive bilateral renal calculi. Surgical services are following. Nasogastric tube has been placed. Today's chest x-ray reveals cardiomegaly. Chronic parenchymal changes without new focal airspace opacity, pleural effusion or pneumothorax. Blood cultures revealed no growth. White count 23.9. Hemoglobin 7.5. MCV is 122. Platelet count 73,000. Sodium 136. Potassium 3.1. Bicarb 30. BUN 59. Creatinine 1.74. Glucose 337. He is continued on DuoNeb inhalations, Pulmicort inhalations, prednisone taper. She is on Xifaxan, Zosyn, Levaquin. Lovenox for anticoagulation. The patient is seen today 11/23/2022 in follow-up on the selective care unit. He is awake, alert, oriented. Resting fairly comfortably in bed. Denies any worsening shortness of breath, cough or congestion. Denies any significant abdominal pain. Nasogastric tube remains in place. Chest x-ray reveals cardiomegaly. Chronic parenchymal changes without any new focal airspace opacities, pleural effusion or pneumothorax. He is maintaining good O2 saturations in the upper 90s on 2 L/m per nasal cannula. He is afebrile. Hemodynamically stable. White count 19.6. Hemoglobin 7.5. Platelets 94,000. Sodium 146. Potassium 2.9. Bicarb 33. BUN 65. Creatinine 1.94. Glucose 137. He remains on rifaximin and Zosyn. Continued on bronchodilators. Patient is seen today 11/24/2022 in follow-up on the selective care unit. He is resting comfortably in bed. He remains awake, alert, oriented. His is at the bedside. He is having bowel movements. Nasogastric tube remains in place. Blood cultures revealed no growth. Blood sugar 156. He is continued on DuoNeb inhalations. Prednisone taper. Remains on Zosyn. Remains on rifaximin. Anticoagulated with Lovenox. Continued on D5W at 50 MLS per hour. Objective - Vital Signs Vital signs: Vital Signs Temp 97.4 F L 11/24/22 08:35 Pulse 65 11/24/22 08:35 Resp 18 11/24/22 08:35 BP 117/60 11/24/22 08:35 Pulse Ox 98 11/24/22 08:35 FiO2 28 11/17/22 08:36 Intake & Output 11/23/22 11/24/22 11/24/22 18:59 06:59 18:59 Output Total 1300 1250 550 Balance -1300 -1250 -550 Output: Gastric Drainage 700 250 Drainage 700 NG TUBE 700 Urine 600 550 300 Other: Voiding Method Indwelling Catheter Indwelling Catheter Indwelling Catheter # Voids 1 # Bowel Movements 2 1 1 - Exam GENERAL EXAM: Alert, oriented, pleasant 82-year-old male, on room air, comfortable in no apparent distress. HEAD: Normocephalic. EYES: Normal reaction of pupils, equal size. NOSE: Nasogastric tube secured in place. Clear with pink turbinates. THROAT: No erythema or exudates. NECK: No masses, no JVD. CHEST: No chest wall deformity. LUNGS: Equal air entry with no crackles, wheeze, rhonchi or dullness. CVS: S1 and S2 normal with no audible murmur, regular rhythm. ABDOMEN: Soft, positive bowel sounds, no guarding or rigidity. SPINE: No scoliosis or deformity SKIN: No rashes CENTRAL NERVOUS SYSTEM: No focal deficits, tone is normal in all 4 extremities. EXTREMITIES: There is 1+ peripheral edema. No clubbing, no cyanosis. Pe ripheral pulses are intact. - Labs CBC & Chem 7: 11/23/22 06:07 11/23/22 06:07 Labs: Abnormal Lab Results - Last 24 Hours (Table) 11/23/22 11/23/22 11/23/22 Range/Units 11:54 16:46 20:16 POC Glucose (mg/dL) 138 H 189 H 191 H (70-110) mg/dL 11/24/22 Range/Units 06:07 POC Glucose (mg/dL) 156 H (70-110) mg/dL Assessment and Plan Assessment: Acute hepatic encephalopathy, suspect liver cirrhosis secondary to remote alcohol abuse. Computed tomography scan of the abdomen and pelvis revealed a dilated appendix with gas within the tip. There is some nonspecific surrounding fluid/stranding. Findings could be seen with acute appendicitis. Gas and stool filled dilated colon and rectum without focal transition point suggestive of an colonic ileus. 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 Hepatic cirrhosis with findings suggestive of portal hypertension with trace ascites and splenic collaterals. Right adrenal gland lipid rich adenoma. Nonobstructive bilateral renal calculi. Surgical services are following. Nasog astric tube has been placed. Altered mental status secondary to above, acute metabolic toxic encephalopathy, improved Acute diastolic congestive heart failure Acute on chronic kidney disease Acute metabolic alkalosis secondary to diuretics Moderate severe pulmonary hypertension Moderate severe mitral regurgitation History of mild COPD Chronic atrial fibrillation History of colonic polyps Type 2 diabetes with diabetic nephropathy History of CVA without any residual deficit Plan: The patient was seen and evaluated Medications reviewed NG tube in place Improved mentation Continue bronchodilators Continue antibiotics Improved and on room air We will continue to follow I have personally seen and examined the patient, performed the documentation and the assessment and plan as written. Number of minutes spent on the visit: 10.
[2022-11-24 11:19] LABS: African American GFR (CKD) 39 (>60 ml/min/1.73 sqM); Anion Gap 4 mmol/L; Blood Urea Nitrogen 59 mg/dL (9-20); Calcium 8.3 mg/dL (8.4-10.2); Carbon Dioxide 31 mmol/L (22-30); Chloride 109 mmol/L (98-107); Glucose 134 mg/dL (74-99); Non-African American GFR(CKD) 34 (>60 ml/min/1.73 sqM); Potassium 2.9 mmol/L (3.5-5.1); Sodium 144 mmol/L (137-145)
[2022-11-24 11:46] LABS: Glucose,Whole Blood 169 mg/dL (70-110)
[2022-11-24] MEDS: POTASSIUM BICARBONATE/CIT AC 20 MEQ TABLET.EFF NG-TUBE SCH ×3 (12:35→15:30)
--- NOTE | 2022-11-24 13:19 | P.PN ---
Subjective This is a pleasant 82 years old male with multiple medical problems including history of heart failure presents with worsening dyspnea and leg swelling on and he was found with fluid overload secondary to diastolic CHF, echocardiogram from 09/2022 showing ejection fraction 55%. Currently home school liaison officer signed off the case and patient being monitored closely by nephrology team. He remains on Lasix drip 10 mg/h, creatinine 1.4, 1.6 and 2.1. Discuss case with nephrology team who recommended to keep the Lasix drip for now. Pulmonary team on the case for mild COPD exacerbation and currently on a prednisone 40 mg. Hemoglobin 7.8. 11/17/2022 patient CHF and fluid overload improving, his oxygen saturation is acceptable and wants only with minimal crepitation mainly on the right side however he still have 2+ leg edema. However patient developed more alkalosis therefore Lasix drip was stopped and started on torsemide while the dose for Zaroxolyn was lowered to 2.5 mg. Creatinine is stable at 2.0 compared to 1.4 on admission. However patient become more confused today most likely secondary to metabolic encephalopathy and toxic encephalopathy. No recent fall. Patient fell about 3 days ago at that time CT of the brain was negative. Workup showing ammonia level is high at 255 and lactulose is added. We will continue neuro check and consider repeat CT of the brain condition worsens Pressure applied with sponge gel to bleeding superficial ulcer on the right forearm. 11/18/2022 Patient still confused and sleepy this morning from yesterday he got worse significantly. There is no new symptoms, he slipped with the And tachycardic. He had low-grade temperature of 99.8. Leukocytosis worsened 10.5 up to 17,000. Chest x-ray and urinalysis were repeated they were negative for acute process. Risks of flaps looks stable. Creatinine 1.9 which is a stable but higher than baseline because he was on Lasix drip. The sixth rib. Now, torsemide is only once daily. Also patient started on normal saline 75 mL/h Patient continued on prednisone 40 mg once a Eliquis area We will send blood culture and check liver ultrasound as liver enzymes and bilirubin only mildly elevated although this is not very new. Plan discussed with staff and bedside nurse more than once. 11/19/2022 Patient slightly improving regarding his mentation, he still confused sleepy and does not respond to verbal or tactile stimuli but he opens his eyes from moving in bed to some degree which she was not doing its yesterday. His ammonia level is elevated yesterday to 55 and liver ultrasound showing possible liver cirrhosis which is most likely related to alcoholic liver cirrhosis. GI team. He is started on lactulose and ammonia level improved and 48. Also he remains on normal saline at 50 mL/h, alert from 75 mm/h for acute kidney injury and metabolic abnormalities including contraction alkalosis. Check labs tomorrow 11/20/2022 Patient is more awake and interactive significantly better than yesterday and he can answer some questions but still confused and not quite back to his baseline. However patient denies any pain or specific symptoms. He has frequent bowel movements. GI team on the case for his hepatic encephalopathy and his lactulose dose was increased to 30 mg 3 times a day and rifaximin is added. Sodium 148 and patient started on D5 W Creatinine improving down to 1.6. Patient remains on prednisone 40 mg 11/21/2022 Patient today sitting up in bed with sitter at bedside for safety, patient still little confused to the surrounding but improved compared to yesterday. Patient is not eating well he starts complaining from abdominal pain and tenderness today,(yesterday his abdomen was not tender on exam) on exam he had distention and tenderness periumbilical area, computed tomography scan of the abdomen and pelvis was obtained showing gas appendix suspicious for appendicitis and dilated bowel with no transitions zone suspicious for ileus. Patient hemodynamically stable and is afebrile, tachycardia improved. Ammonia improved to baseline yesterday. Creatinine is stable and improved down to 1.6. Hemoglobin is stable at 8.1 and he has mild leukocytosis. Patient was started on Zosyn with surgery to consult I discussed the case with Gen. surgery evaluated the patient 11/22/2022 Patient today still tired and lethargic. But he wakes up and talk to family and at bedside and mentation improved since she started on lactulose. However he developed ileus and abdominal tenderness yesterday and there was suspicion of gas and the appendix suspicious for acute appendicitis, I discussed the case with surgery team and Dr. Begum we are not sure if this is a case of acute appendicitis however it is not entirely excluded or abdominal sepsis especially in view of his abdominal tenderness ileus and abdominal distention. Patient is not able to eat. NG tube was placed in the morning but no output. His labs showing worsening leukocytosis up to 23,000, hemoglobin slightly less 7.5, platelets slightly less at 70 3K, creatinine is slightly up 1.7. Because of this was started on Zosyn yesterday for covering gram-negative and an aerobic microorganisms and we are going to add Levaquin intravenously for better gram-negative coverage given his worsening situation area Of note ammonia level down to 11 and sodium level improved to normal at 136 today. He is hemodynamically stable and afebrile. He was started on normal saline 50 mL/h. Also continued on prednisone 40 mg, rifaximin 550 mg which is another antibiotic. He is still on lactulose 30 g and breathing treatment I talked to the at bedside that's is a very good surgical candidate if surgical intervention is warranted given his a newly diagnosed liver cirrhosis and decompensated liver function Avalide verbalized understanding and acceptance this information. Also she understands that his prognosis is very guarded. Patient is high-risk for deterioration despite treatment. And I told the even if his 5 this episode given his multiple progressive problems with the complication make his long-term prognosis poor as well. She verbalized u nderstanding and acceptance. Currently patient already no good Diuretics are held Alk phos was held Discussed with staff 11/23/2022 patient today showed drastic improvement in his mentation that his back to baseline fully awake and oriented, still feels tired overall and g enerally He still have NG tube in a Place and hemocculted up twice to has to be inserted, draining dark brown discharge. About 100 mL in the bag. Abdominal distention also less abdominal tenderness is the severe compared to yesterday He had some very small bowel movement. But they denies chest pain or dyspnea He remains on D5W at 50 mL/h. Also remains on antibiotic with Zosyn and rifaximin, home dose of all liquids, prednisone 40 mg and lactulose 11/24/2022 Since yesterday's mentation is starts improving and today he is even more awake and alert back to baseline as per at bedside. NG tube in place with dark aspirate, less than 100 mL he ended bag. No abdominal pain or tenderness, abdominal distention is improved. He had several bowel movements. Creatinine is stable at 1.8. Platelets 94, hemoglobin same as 7.5, and WBC trending down to 19,000. He remains on Lovenox 60 mg, prednisone 40 mg, Lasix was discontinued several days ago and currently is on fluid restriction Objective - Vital Signs Vital signs: Vital Signs Temp 97.6 F 11/24/22 12:32 Pulse 68 11/24/22 13:07 Resp 18 11/24/22 12:32 BP 117/57 11/24/22 12:32 Pulse Ox 93 L 11/24/22 12:32 FiO2 28 11/17/22 08:36 Intake & Output 11/23/22 11/24/22 11/24/22 18:59 06:59 18:59 Output Total 1300 1250 550 Balance -1300 -1250 -550 Output: Gastric Drainage 700 250 Drainage 700 NG TUBE 700 Urine 600 550 300 Other: Voiding Method Indwelling Catheter Indwelling Catheter Indwelling Catheter # Voids 1 1 # Bowel Movements 2 1 1 - Exam GENERAL: The patient is drowsy and tired, not in any acute distress. Well developed, well nourished. HEENT: Pupils are round and equally reacting to light. EOMI. No scleral icterus. No conjunctival pallor. Normocephalic, atraumatic. No pharyngeal erythema. No thyromegaly. CARDIOVASCULAR: S1 and S2 present. No murmurs, rubs, or gallops. -PULMONARY: Chest is clear to auscultation, no wheezing , bilateral basal crackles. -ABDOMEN: Tense, generalized abdominal tenderness, no rebound tenderness or guarding, distended, mildly normoactive bowel sounds. No palpable organomegaly. NG tube in place with no significant output MUSCULOSKELETAL: No joint swelling or deformity. -EXTREMITIES: No cyanosis, clubbing, patient has bilateral pitting leg edema. NEUROLOGICAL: Gross neurological examination did not reveal any focal deficits. SKIN: No rashes. no petechiae. - Labs CBC & Chem 7: 11/23/22 06:07 11/24/22 10:34 Labs: Abnormal Lab Results - Last 24 Hours (Table) 11/23/22 11/23/22 11/24/22 Range/Units 16:46 20:16 06:07 Potassium (3.5-5.1) mmol/L Chloride (98-107) mmol/L Carbon Dioxide (22-30) mmol/L BUN (9-20) mg/dL Creatinine (0.66-1.25) mg/dL Glucose (74-99) mg/dL POC Glucose (mg/dL) 189 H 191 H 156 H (70-110) mg/dL Calcium (8.4-10.2) mg/dL 11/24/22 11/24/22 Range/Units 10:34 11:45 Potassium 2.9 L (3.5-5.1) mmol/L Chloride 109 H (98-107) mmol/L Carbon Dioxide 31 H (22-30) mmol/L BUN 59 H (9-20) mg/dL Creatinine 1.81 H (0.66-1.25) mg/dL Glucose 134 H (74-99) mg/dL POC Glucose (mg/dL) 169 H (70-110) mg/dL Calcium 8.3 L (8.4-10.2) mg/dL Microbiology - Last 24 Hours (Table) 11/18/22 14:40 Blood Culture - Final Blood Assessment and Plan Assessment: Acute abdominal tenderness with CT evidence of colonic ileus and possible appendicitis, cannot exclude intra-abdominal sepsis 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 Recent CT of the brain is negative Acute diastolic CHF, currently patient got more contraction Acute kidney injury on chronic kidney disease stage III Acute metabolic alkalosis, possibly exacerbated by contraction alkalosis. moderate to severe mitral regurgitation Severe pulmonary hypertension Mild COPD exacerbation Chronic atrial fibrillation Plan: With the patient nothing by mouth, continue with Zosyn. Add levofloxacin. Continue with NG tube, continue with bowel rest Surgery team on the case and monitor the patient closely Continue with gentle hydration. Pain management, bowel rest. General surgery team on the case as above Continue with lactulose, ammonia is back to reference range . Appreciate GI input Patient currently on torsemide on small dose of Zaroxolyn, smaller dose continue with the prednisone 40 mg Dry Lumber Grader in of the case. GI team on the case Pulmonary team on the case and currently on a prednisone 40 mg (pulmonary service signed off the case today 11/21) Dolly Pusher Signed off the pillowcase cleaner her mentation Labs and medication were reviewed.. Continue same treatment. Continue with symptomatic treatment. Resume home medication. Monitor labs and vitals. DVT and GI prophylaxis. Further recommendations as per clinical course of the patient DVT prophylaxis: Eliquis which was held In case he would need surgery, we don't put him on Lovenox 60 mg twice daily as patient is an chronic atrial fibrillation GI prophylaxis: Protonix PT/OT Deferred No code Prognosis is very guarded
[2022-11-24 16:38] LABS: Glucose,Whole Blood 226 mg/dL (70-110)
[2022-11-24 17:01] LABS: Magnesium 2.4 mg/dL (1.6-2.3); Potassium 3.6 mmol/L (3.5-5.1)
[2022-11-24 19:53] LABS: Glucose,Whole Blood 202 mg/dL (70-110)
[2022-11-24] MEDS: TAMSULOSIN 0.4 MG CAP.ER.24H PO SCH (21:35)
[2022-11-24] MEDS: LATANOPROST 0.005% OPHTH DROPS 2.5 ML BTL BOTH EYES SCH (21:36)
[2022-11-24] MEDS: DORZOLAMIDE-TIMOLOL 2.23%/0.68 10ML BTL BOTH EYES SCH (21:36)
--- NOTE | 2022-11-24 23:30 | P.PN ---
Subjective Patient is seen for follow-up for acute kidney injury. Currently off of diuretics and maintained on IV fluids. Good UOP Serum creatinine at 1.7- 1.9 mg/dL Mentation is back to baseline. Maintained on D5 W at 50 cc/hr NG tube in place. Objective - Vital Signs Vital signs: Vital Signs Temp 97.7 F 11/24/22 15:28 Pulse 74 11/24/22 20:48 Resp 18 11/24/22 15:28 BP 123/67 11/24/22 15:28 Pulse Ox 98 11/24/22 15:28 FiO2 28 11/17/22 08:36 Intake & Output 11/24/22 11/24/22 11/25/22 06:59 18:59 06:59 Output Total 1250 955 725 Balance -1250 -955 -725 Output: Gastric Drainage 700 250 Drainage 450 NG TUBE 450 Urine 550 705 275 Other: Voiding Method Indwelling Catheter Indwelling Catheter # Voids 1 # Bowel Movements 1 1 1 - Exam Patient is awake. Sitting up in bed. Able to communicate. Mentation at baseline NG tube in place. Examination of the heart S1 and S2 Examination of the lungs bilateral breath sounds are heard Abdomen is soft nontender Examination lower extremities shows no significant edema - Labs CBC & Chem 7: 11/23/22 06:07 11/24/22 16:22 Labs: Abnormal Lab Results - Last 24 Hours (Table) 11/24/22 11/24/22 11/24/22 Range/Units 06:07 10:34 11:45 Potassium 2.9 L (3.5-5.1) mmol/L Chloride 109 H (98-107) mmol/L Carbon Dioxide 31 H (22-30) mmol/L BUN 59 H (9-20) mg/dL Creatinine 1.81 H (0.66-1.25) mg/dL Glucose 134 H (74-99) mg/dL POC Glucose (mg/dL) 156 H 169 H (70-110) mg/dL Calcium 8.3 L (8.4-10.2) mg/dL Magnesium (1.6-2.3) mg/dL 11/24/22 11/24/22 11/24/22 Range/Units 16:22 16:37 19:52 Potassium (3.5-5.1) mmol/L Chloride (98-107) mmol/L Carbon Dioxide (22-30) mmol/L BUN (9-20) mg/dL Creatinine (0.66-1.25) mg/dL Glucose (74-99) mg/dL POC Glucose (mg/dL) 226 H 202 H (70-110) mg/dL Calcium (8.4-10.2) mg/dL Magnesium 2.4 H (1.6-2.3) mg/dL Microbiology - Last 24 Hours (Table) 11/18/22 14:40 Blood Culture - Final Blood Assessment and Plan Assessment: 1. Acute kidney injury cardiorenal, status post diuretics, restarted IV fluids. UA is benign. Renal function improved 2. Chronic kidney disease NKF stage III a secondary to nephrosclerosis with baseline creatinine 1.2-1.3 mg/dL 3. Severe pulmonary hypertension with moderate to severe mitral regurgitation and chronic lower extremity edema 4. Acute on chronic CHF with preserved ejection fraction 5. Coronary artery disease with history of previous coronary stenting 6. Metabolic alkalosis secondary to diuresis, improved with hydration. 7. Hypernatremia associated with free water deficit. 8. Ileus with NG tube, being followed by surgery. Plan: Replace potassium Continue D5W Repeat labs in a.m.
[2022-11-25] MEDS: PIPERACILLIN-TAZOBACTAM 3.375 GM in SODIUM CHLORIDE 0.9% 100 ML IVPB SCH ×3 (00:12→16:50)
[2022-11-25 06:00] LABS: Glucose,Whole Blood 153 mg/dL (70-110)
[2022-11-25] MEDS: INSULIN ASPART (NovoLOG) 100 UNIT/ML VIAL SQ SCH ×4 (07:14→20:53)
[2022-11-25] MEDS: PANTOPRAZOLE 40 MG TABLET PO SCH (07:14)
[2022-11-25 08:24] LABS: African American GFR (CKD) 43 (>60 ml/min/1.73 sqM); Anion Gap 1 mmol/L; Blood Urea Nitrogen 57 mg/dL (9-20); Calcium 7.7 mg/dL (8.4-10.2); Carbon Dioxide 33 mmol/L (22-30); Chloride 106 mmol/L (98-107); Glucose 127 mg/dL (74-99); Magnesium 2.4 mg/dL (1.6-2.3); Non-African American GFR(CKD) 37 (>60 ml/min/1.73 sqM); Potassium 2.9 mmol/L (3.5-5.1); Sodium 140 mmol/L (137-145)
[2022-11-25 08:31] LABS: Anisocytosis Moderate; HCT 23.1 % (39.0-53.0); HGB 7.6 gm/dL (13.0-17.5); Hypochromasia Slight; MCH 37.7 pg (25.0-35.0); MCHC 32.6 g/dL (31.0-37.0); MCV 115.6 fL (80.0-100.0); Macrocytosis Marked; Mean Platelet Volume 11.6; RDW 21.4 % (11.5-15.5)
[2022-11-25 08:33] LABS: Platelet Count 91 k/uL (150-450)
[2022-11-25] MEDS: BUDESONIDE 0.5 MG/2 ML NEBU INHALATION SCH ×2 (08:33→20:31)
[2022-11-25] MEDS: IPRATROPIUM-ALBUTEROL 3 ML NEB INHALATION SCH ×3 (08:33→20:31)
[2022-11-25 09:00] LABS: Band Neutrophils % 2 %; Myelocytes % 1 %; Neutrophils % (M) 73 %; Nucleated Red Blood Cells 2 /100 WBC (0-0); Total Cells Counted 200
--- NOTE | 2022-11-25 09:02 | P.PN ---
Subjective Patient is seen for follow-up for acute kidney injury. Currently off of diuretics and maintained on IV fluids. Good UOP Serum creatinine at 1.7- 1.9 mg/dL Mentation is back to baseline. Maintained on D5 W at 50 cc/hr NG tube in place. Objective - Vital Signs Vital signs: Vital Signs Temp 97.8 F 11/25/22 00:00 Pulse 70 11/25/22 08:50 Resp 18 11/25/22 04:00 BP 124/68 11/25/22 04:00 Pulse Ox 98 11/25/22 08:33 FiO2 28 11/17/22 08:36 Intake & Output 11/24/22 11/25/22 11/25/22 18:59 06:59 18:59 Output Total 955 1226 Balance -955 -1226 Output: Gastric Drainage 250 Drainage 450 NG TUBE 450 Urine 705 775 Urine/Stool Mix 1 Other: Voiding Method Indwelling Catheter Indwelling Catheter # Voids 1 # Bowel Movements 1 1 - Exam Patient is awake. Sitting up in bed. Able to communicate. Mentation at baseline NG tube in place. Examination of the heart S1 and S2 Examination of the lungs bilateral breath sounds are heard Abdomen is soft nontender Examination lower extremities shows no significant edema - Labs CBC & Chem 7: 11/25/22 07:27 11/25/22 07:27 Labs: Abnormal Lab Results - Last 24 Hours (Table) 11/24/22 11/24/22 11/24/22 Range/Units 10:34 11:45 16:22 WBC (3.8-10.6) k/uL RBC (4.30-5.90) m/uL Hgb (13.0-17.5) gm/dL Hct (39.0-53.0) % MCV (80.0-100.0) fL MCH (25.0-35.0) pg RDW (11.5-15.5) % Plt Count (150-450) k/uL Macrocytosis Potassium 2.9 L (3.5-5.1) mmol/L Chloride 109 H (98-107) mmol/L Carbon Dioxide 31 H (22-30) mmol/L BUN 59 H (9-20) mg/dL Creatinine 1.81 H (0.66-1.25) mg/dL Glucose 134 H (74-99) mg/dL POC Glucose (mg/dL) 169 H (70-110) mg/dL Calcium 8.3 L (8.4-10.2) mg/dL Magnesium 2.4 H (1.6-2.3) mg/dL 11/24/22 11/24/22 11/25/22 Range/Units 16:37 19:52 05:59 WBC (3.8-10.6) k/uL RBC (4.30-5.90) m/uL Hgb (13.0-17.5) gm/dL Hct (39.0-53.0) % MCV (80.0-100.0) fL MCH (25.0-35.0) pg RDW (11.5-15.5) % Plt Count (150-450) k/uL Macrocytosis Potassium (3.5-5.1) mmol/L Chloride (98-107) mmol/L Carbon Dioxide (22-30) mmol/L BUN (9-20) mg/dL Creatinine (0.66-1.25) mg/dL Glucose (74-99) mg/dL POC Glucose (mg/dL) 226 H 202 H 153 H (70-110) mg/dL Calcium (8.4-10.2) mg/dL Magnesium (1.6-2.3) mg/dL 11/25/22 11/25/22 Range/Units 07:27 07:27 WBC 20.4 H (3.8-10.6) k/uL RBC 2.00 L (4.30-5.90) m/uL Hgb 7.6 L (13.0-17.5) gm/dL Hct 23.1 L (39.0-53.0) % MCV 115.6 H (80.0-100.0) fL MCH 37.7 H (25.0-35.0) pg RDW 21.4 H (11.5-15.5) % Plt Count 91 L (150-450) k/uL Macrocytosis Marked A Potassium 2.9 L (3.5-5.1) mmol/L Chloride (98-107) mmol/L Carbon Dioxide 33 H (22-30) mmol/L BUN 57 H (9-20) mg/dL Creatinine 1.70 H (0.66-1.25) mg/dL Glucose 127 H (74-99) mg/dL POC Glucose (mg/dL) (70-110) mg/dL Calcium 7.7 L (8.4-10.2) mg/dL Magnesium 2.4 H (1.6-2.3) mg/dL Microbiology - Last 24 Hours (Table) 11/18/22 14:40 Blood Culture - Final Blood Assessment and Plan Assessment: 1. Acute kidney injury cardiorenal, status post diuretics, restarted IV fluids. UA is benign. Renal function improved 2. Chronic kidney disease NKF stage III a secondary to nephrosclerosis with baseline creatinine 1.2-1.3 mg/dL 3. Severe pulmonary hypertension with moderate to severe mitral regurgitation and chronic lower extremity edema 4. Acute on chronic CHF with preserved ejection fraction 5. Coronary artery disease with history of previous coronary stenting 6. Metabolic alkalosis secondary to diuresis, improved with hydration. 7. Hypernatremia associated with free water deficit. 8. Ileus with NG tube, being followed by surgery. 9. Hypokalemia associated with GI fluid loss, currently being replaced Plan: Replace potassium Continue D5W Repeat labs in a.m.
[2022-11-25] MEDS: LACTULOSE 200 GM/300 ML (FROM 1/2 GAL JUG) RECTAL SCH (09:28)
[2022-11-25] MEDS: bisacodyL 10 MG SUPP RECTAL SCH (09:28)
[2022-11-25] MEDS: THIAMINE 100 MG/ML 2 ML VIAL IVP SCH (09:43)
[2022-11-25] MEDS: MULTIVITAMINS, THERA 1 EACH TAB PO SCH (09:44)
[2022-11-25] MEDS: POTASSIUM BICARBONATE/CIT AC 20 MEQ TABLET.EFF PO SCH ×4 (09:44→15:20)
[2022-11-25] MEDS: RIFAXIMIN 550 MG TABLET PO SCH ×2 (09:44→20:53)
[2022-11-25] MEDS: POTASSIUM CHLORIDE ER 20 MEQ TAB.ER PO SCH (09:44)
[2022-11-25] MEDS: predniSONE 20 MG TAB PO SCH (09:44)
[2022-11-25] MEDS: ATORVASTATIN 40 MG TAB PO SCH (09:44)
[2022-11-25] MEDS: FERROUS SULFATE 325 MG TAB PO SCH (09:44)
[2022-11-25] MEDS: DEXTROSE 5% IN WATER 1,000 ML IV SCH (09:45)
[2022-11-25] MEDS: ENOXAPARIN 60 MG/0.6 ML SYRINGE SQ SCH ×2 (09:45→20:52)
--- NOTE | 2022-11-25 09:50 | P.PN ---
Subjective Progress Note Date: 11/25/22 Principal diagnosis: Ileus Patient's nasogastric tube fell out this morning. He is still having multiple stools. Denies abdominal pain or bloating. He is hungry. Potassium today 2.9. Objective - Vital Signs Vital signs: Vital Signs Temp 97.8 F 11/25/22 00:00 Pulse 70 11/25/22 08:50 Resp 18 11/25/22 04:00 BP 124/68 11/25/22 04:00 Pulse Ox 98 11/25/22 08:33 FiO2 28 11/17/22 08:36 Intake & Output 11/24/22 11/25/22 11/25/22 18:59 06:59 18:59 Output Total 955 1226 Balance -955 -1226 Output: Gastric Drainage 250 Drainage 450 NG TUBE 450 Urine 705 775 Urine/Stool Mix 1 Other: Voiding Method Indwelling Catheter Indwelling Catheter # Voids 1 # Bowel Movements 1 1 - Exam Abdomen: Soft, nontender, nondistended - Labs CBC & Chem 7: 11/25/22 07:27 11/25/22 07:27 Labs: Abnormal Lab Results - Last 24 Hours (Table) 11/24/22 11/24/22 11/24/22 Range/Units 10:34 11:45 16:22 WBC (3.8-10.6) k/uL RBC (4.30-5.90) m/uL Hgb (13.0-17.5) gm/dL Hct (39.0-53.0) % MCV (80.0-100.0) fL MCH (25.0-35.0) pg RDW (11.5-15.5) % Plt Count (150-450) k/uL Neutrophils # (Manual) (1.3-7.7) k/uL Eosinophils # (Manual) (0-0.7) k/uL Myelocytes # (Manual) (0) k/uL Nucleated RBCs (0-0) /100 WBC Macrocytosis Potassium 2.9 L (3.5-5.1) mmol/L Chloride 109 H (98-107) mmol/L Carbon Dioxide 31 H (22-30) mmol/L BUN 59 H (9-20) mg/dL Creatinine 1.81 H (0.66-1.25) mg/dL Glucose 134 H (74-99) mg/dL POC Glucose (mg/dL) 169 H (70-110) mg/dL Calcium 8.3 L (8.4-10.2) mg/dL Magnesium 2.4 H (1.6-2.3) mg/dL 11/24/22 11/24/22 11/25/22 Range/Units 16:37 19:52 05:59 WBC (3.8-10.6) k/uL RBC (4.30-5.90) m/uL Hgb (13.0-17.5) gm/dL Hct (39.0-53.0) % MCV (80.0-100.0) fL MCH (25.0-35.0) pg RDW (11.5-15.5) % Plt Count (150-450) k/uL Neutrophils # (Manual) (1.3-7.7) k/uL Eosinophils # (Manual) (0-0.7) k/uL Myelocytes # (Manual) (0) k/uL Nucleated RBCs (0-0) /100 WBC Macrocytosis Potassium (3.5-5.1) mmol/L Chloride (98-107) mmol/L Carbon Dioxide (22-30) mmol/L BUN (9-20) mg/dL Creatinine (0.66-1.25) mg/dL Glucose (74-99) mg/dL POC Glucose (mg/dL) 226 H 202 H 153 H (70-110) mg/dL Calcium (8.4-10.2) mg/dL Magnesium (1.6-2.3) mg/dL 11/25/22 11/25/22 Range/Units 07:27 07:27 WBC 20.0 H (3.8-10.6) k/uL RBC 2.00 L (4.30-5.90) m/uL Hgb 7.6 L (13.0-17.5) gm/dL Hct 23.1 L (39.0-53.0) % MCV 115.6 H (80.0-100.0) fL MCH 37.7 H (25.0-35.0) pg RDW 21.4 H (11.5-15.5) % Plt Count 91 L (150-450) k/uL Neutrophils # (Manual) 15.00 H (1.3-7.7) k/uL Eosinophils # (Manual) 1.80 H (0-0.7) k/uL Myelocytes # (Manual) 0.20 H (0) k/uL Nucleated RBCs 2 H (0-0) /100 WBC Macrocytosis Marked A Potassium 2.9 L (3.5-5.1) mmol/L Chloride (98-107) mmol/L Carbon Dioxide 33 H (22-30) mmol/L BUN 57 H (9-20) mg/dL Creatinine 1.70 H (0.66-1.25) mg/dL Glucose 127 H (74-99) mg/dL POC Glucose (mg/dL) (70-110) mg/dL Calcium 7.7 L (8.4-10.2) mg/dL Magnesium 2.4 H (1.6-2.3) mg/dL Microbiology - Last 24 Hours (Table) 11/18/22 14:40 Blood Culture - Final Blood Assessment and Plan (1) Ileus Narrative/Plan: Patient doing better. Keep nasogastric tube out. Begin clear liquids. Ambulate. Current Visit: Yes Status: Acute Code(s): K56.7 - ILEUS, UNSPECIFIED SNOMED Code(s): 186759171
--- NOTE | 2022-11-25 11:21 | P.PN ---
Subjective This is a pleasant 82 years old male with multiple medical problems including history of heart failure presents with worsening dyspnea and leg swelling on and he was found with fluid overload secondary to diastolic CHF, echocardiogram from 09/2022 showing ejection fraction 55%. Currently doctor of nursing practice signed off the case and patient being monitored closely by nephrology team. He remains on Lasix drip 10 mg/h, creatinine 1.4, 1.6 and 2.1. Discuss case with nephrology team who recommended to keep the Lasix drip for now. Pulmonary team on the case for mild COPD exacerbation and currently on a prednisone 40 mg. Hemoglobin 7.8. 11/17/2022 patient CHF and fluid overload improving, his oxygen saturation is acceptable and wants only with minimal crepitation mainly on the right side however he still have 2+ leg edema. However patient developed more alkalosis therefore Lasix drip was stopped and started on torsemide while the dose for Zaroxolyn was lowered to 2.5 mg. Creatinine is stable at 2.0 compared to 1.4 on admission. However patient become more confused today most likely secondary to metabolic encephalopathy and toxic encephalopathy. No recent fall. Patient fell about 3 days ago at that time CT of the brain was negative. Workup showing ammonia level is high at 255 and lactulose is added. We will continue neuro check and consider repeat CT of the brain condition worsens Pressure applied with sponge gel to bleeding superficial ulcer on the right forearm. 11/18/2022 Patient still confused and sleepy this morning from yesterday he got worse significantly. There is no new symptoms, he slipped with the And tachycardic. He had low-grade temperature of 99.8. Leukocytosis worsened 10.5 up to 17,000. Chest x-ray and urinalysis were repeated they were negative for acute process. Risks of flaps looks stable. Creatinine 1.9 which is a stable but higher than baseline because he was on Lasix drip. The sixth rib. Now, torsemide is only once daily. Also patient started on normal saline 75 mL/h Patient continued on prednisone 40 mg once a Eliquis area We will send blood culture and check liver ultrasound as liver enzymes and bilirubin only mildly elevated although this is not very new. Plan discussed with staff and bedside nurse more than once. 11/19/2022 Patient slightly improving regarding his mentation, he still confused sleepy and does not respond to verbal or tactile stimuli but he opens his eyes from moving in bed to some degree which she was not doing its yesterday. His ammonia level is elevated yesterday to 55 and liver ultrasound showing possible liver cirrhosis which is most likely related to alcoholic liver cirrhosis. GI team. He is started on lactulose and ammonia level improved and 48. Also he remains on normal saline at 50 mL/h, alert from 75 mm/h for acute kidney injury and metabolic abnormalities including contraction alkalosis. Check labs tomorrow 11/20/2022 Patient is more awake and interactive significantly better than yesterday and he can answer some questions but still confused and not quite back to his baseline. However patient denies any pain or specific symptoms. He has frequent bowel movements. GI team on the case for his hepatic encephalopathy and his lactulose dose was increased to 30 mg 3 times a day and rifaximin is added. Sodium 148 and patient started on D5 W Creatinine improving down to 1.6. Patient remains on prednisone 40 mg 11/21/2022 Patient today sitting up in bed with sitter at bedside for safety, patient still little confused to the surrounding but improved compared to yesterday. Patient is not eating well he starts complaining from abdominal pain and tenderness today,(yesterday his abdomen was not tender on exam) on exam he had distention and tenderness periumbilical area, computed tomography scan of the abdomen and pelvis was obtained showing gas appendix suspicious for appendicitis and dilated bowel with no transitions zone suspicious for ileus. Patient hemodynamically stable and is afebrile, tachycardia improved. Ammonia improved to baseline yesterday. Creatinine is stable and improved down to 1.6. Hemoglobin is stable at 8.1 and he has mild leukocytosis. Patient was started on Zosyn with surgery to consult I discussed the case with Gen. surgery evaluated the patient 11/22/2022 Patient today still tired and lethargic. But he wakes up and talk to family and at bedside and mentation improved since she started on lactulose. However he developed ileus and abdominal tenderness yesterday and there was suspicion of gas and the appendix suspicious for acute appendicitis, I discussed the case with surgery team and Dr. Begum we are not sure if this is a case of acute appendicitis however it is not entirely excluded or abdominal sepsis especially in view of his abdominal tenderness ileus and abdominal distention. Patient is not able to eat. NG tube was placed in the morning but no output. His labs showing worsening leukocytosis up to 23,000, hemoglobin slightly less 7.5, platelets slightly less at 70 3K, creatinine is slightly up 1.7. Because of this was started on Zosyn yesterday for covering gram-negative and an aerobic microorganisms and we are going to add Levaquin intravenously for better gram-negative coverage given his worsening situation area Of note ammonia level down to 11 and sodium level improved to normal at 136 today. He is hemodynamically stable and afebrile. He was started on normal saline 50 mL/h. Also continued on prednisone 40 mg, rifaximin 550 mg which is another antibiotic. He is still on lactulose 30 g and breathing treatment I talked to the at bedside that's is a very good surgical candidate if surgical intervention is warranted given his a newly diagnosed liver cirrhosis and decompensated liver function Avalide verbalized understanding and acceptance this information. Also she understands that his prognosis is very guarded. Patient is high-risk for deterioration despite treatment. And I told the even if his 5 this episode given his multiple progressive problems with the complication make his long-term prognosis poor as well. She verbalized u nderstanding and acceptance. Currently patient already no good Diuretics are held Alk phos was held Discussed with staff 11/23/2022 patient today showed drastic improvement in his mentation that his back to baseline fully awake and oriented, still feels tired overall and g enerally He still have NG tube in a Place and hemocculted up twice to has to be inserted, draining dark brown discharge. About 100 mL in the bag. Abdominal distention also less abdominal tenderness is the severe compared to yesterday He had some very small bowel movement. But they denies chest pain or dyspnea He remains on D5W at 50 mL/h. Also remains on antibiotic with Zosyn and rifaximin, home dose of all liquids, prednisone 40 mg and lactulose 11/24/2022 Since yesterday's mentation is starts improving and today he is even more awake and alert back to baseline as per at bedside. NG tube in place with dark aspirate, less than 100 mL he ended bag. No abdominal pain or tenderness, abdominal distention is improved. He had several bowel movements. Creatinine is stable at 1.8. Platelets 94, hemoglobin same as 7.5, and WBC trending down to 19,000. He remains on Lovenox 60 mg, prednisone 40 mg, Lasix was discontinued several days ago and currently is on fluid restriction 12/13/2022 Patient sitting in bed comfortable, mentation is at baseline, at bedside which confirms this. Patient abdominal distention is improving. He had NG tube which is taken TODAY by mistake, however with improvement with abdominal distention and abdominal pain patient is a started on liquid diet today. Kidney function improved down to 1.7, sodium 140, patient remains on D5W at 50 mL per hour. Low potassium 2.9. And replace per protocol and follow closely. Patient is having 4-5 bowel movements which helped him regarding his hepatic encephalopathy with his improved Patient also remains on a prednisone 40 mg COPD exacerbation. Yulia is in hold and currently is taking Lovenox therapeutic dose. Today I discussed medical problems and plan with the patient and at bedside and all questions answered to her satisfaction. We will lower his prednisone to 30 mg daily from tomorrow, he was taken. There is a 40 mg more than a week Objective - Vital Signs Vital signs: Vital Signs Temp 97.9 F 11/25/22 09:39 Pulse 82 11/25/22 09:39 Resp 18 11/25/22 09:39 BP 136/64 11/25/22 09:39 Pulse Ox 100 11/25/22 09:39 FiO2 28 11/17/22 08:36 Intake & Output 11/24/22 11/25/22 11/25/22 18:59 06:59 18:59 Output Total 955 1226 Balance -955 -1226 Output: Gastric Drainage 250 Drainage 450 NG TUBE 450 Urine 705 775 Urine/Stool Mix 1 Other: Voiding Method Indwelling Catheter Indwelling Catheter Indwelling Catheter # Voids 1 # Bowel Movements 1 1 - Exam GENERAL: The patient is drowsy and tired, not in any acute distress. Well developed, well nourished. HEENT: Pupils are round and equally reacting to light. EOMI. No scleral icterus. No conjunctival pallor. Normocephalic, atraumatic. No pharyngeal erythema. No thyromegaly. CARDIOVASCULAR: S1 and S2 present. No murmurs, rubs, or gallops. -PULMONARY: Chest is clear to auscultation, no wheezing , bilateral basal crackles. -ABDOMEN: Tense, generalized abdominal tenderness, no rebound tenderness or guarding, distended, mildly normoactive bowel sounds. No palpable organomegaly. NG tube in place with no significant output MUSCULOSKELETAL: No joint swelling or deformity. -EXTREMITIES: No cyanosis, clubbing, patient has bilateral pitting leg edema. NEUROLOGICAL: Gross neurological examination did not reveal any focal deficits. SKIN: No rashes. no petechiae. - Labs CBC & Chem 7: 11/25/22 07:27 11/25/22 07:27 Labs: Abnormal Lab Results - Last 24 Hours (Table) 11/24/22 11/24/22 11/24/22 Range/Units 10:34 11:45 16:22 WBC (3.8-10.6) k/uL RBC (4.30-5.90) m/uL Hgb (13.0-17.5) gm/dL Hct (39.0-53.0) % MCV (80.0-100.0) fL MCH (25.0-35.0) pg RDW (11.5-15.5) % Plt Count (150-450) k/uL Neutrophils # (Manual) (1.3-7.7) k/uL Eosinophils # (Manual) (0-0.7) k/uL Myelocytes # (Manual) (0) k/uL Nucleated RBCs (0-0) /100 WBC Macrocytosis Potassium 2.9 L (3.5-5.1) mmol/L Chloride 109 H (98-107) mmol/L Carbon Dioxide 31 H (22-30) mmol/L BUN 59 H (9-20) mg/dL Creatinine 1.81 H (0.66-1.25) mg/dL Glucose 134 H (74-99) mg/dL POC Glucose (mg/dL) 169 H (70-110) mg/dL Calcium 8.3 L (8.4-10.2) mg/dL Magnesium 2.4 H (1.6-2.3) mg/dL 11/24/22 11/24/22 11/25/22 Range/Units 16:37 19:52 05:59 WBC (3.8-10.6) k/uL RBC (4.30-5.90) m/uL Hgb (13.0-17.5) gm/dL Hct (39.0-53.0) % MCV (80.0-100.0) fL MCH (25.0-35.0) pg RDW (11.5-15.5) % Plt Count (150-450) k/uL Neutrophils # (Manual) (1.3-7.7) k/uL Eosinophils # (Manual) (0-0.7) k/uL Myelocytes # (Manual) (0) k/uL Nucleated RBCs (0-0) /100 WBC Macrocytosis Potassium (3.5-5.1) mmol/L Chloride (98-107) mmol/L Carbon Dioxide (22-30) mmol/L BUN (9-20) mg/dL Creatinine (0.66-1.25) mg/dL Glucose (74-99) mg/dL POC Glucose (mg/dL) 226 H 202 H 153 H (70-110) mg/dL Calcium (8.4-10.2) mg/dL Magnesium (1.6-2.3) mg/dL 11/25/22 11/25/22 Range/Units 07:27 07:27 WBC 20.0 H (3.8-10.6) k/uL RBC 2.00 L (4.30-5.90) m/uL Hgb 7.6 L (13.0-17.5) gm/dL Hct 23.1 L (39.0-53.0) % MCV 115.6 H (80.0-100.0) fL MCH 37.7 H (25.0-35.0) pg RDW 21.4 H (11.5-15.5) % Plt Count 91 L (150-450) k/uL Neutrophils # (Manual) 15.00 H (1.3-7.7) k/uL Eosinophils # (Manual) 1.80 H (0-0.7) k/uL Myelocytes # (Manual) 0.20 H (0) k/uL Nucleated RBCs 2 H (0-0) /100 WBC Macrocytosis Marked A Potassium 2.9 L (3.5-5.1) mmol/L Chloride (98-107) mmol/L Carbon Dioxide 33 H (22-30) mmol/L BUN 57 H (9-20) mg/dL Creatinine 1.70 H (0.66-1.25) mg/dL Glucose 127 H (74-99) mg/dL POC Glucose (mg/dL) (70-110) mg/dL Calcium 7.7 L (8.4-10.2) mg/dL Magnesium 2.4 H (1.6-2.3) mg/dL Microbiology - Last 24 Hours (Table) 11/18/22 14:40 Blood Culture - Final Blood Assessment and Plan Assessment: Acute abdominal tenderness with CT evidence of colonic ileus and possible appendicitis, cannot exclude intra-abdominal sepsis 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 Recent CT of the brain is negative Acute diastolic CHF, currently patient got more contraction Acute kidney injury on chronic kidney disease stage III Acute metabolic alkalosis, possibly exacerbated by contraction alkalosis. moderate to severe mitral regurgitation Severe pulmonary hypertension Mild COPD exacerbation Chronic atrial fibrillation Plan: Advance diet to liquids per surgery team, continue with Zosyn. Discontinue NG tube, Surgery team on the case and monitor the patient closely Continue with gentle hydration currently on D5 W. Pain management, Continue with lactulose, ammonia is back to reference range . Appreciate GI input Patient currently on torsemide on small dose of Zaroxolyn, smaller dose continue with the prednisone 40 mg, 30 mg Field Appraiser in of the case. GI team on the case Pulmonary team on the case and currently on a prednisone 40 mg (pulmonary service signed off the case today 11/21) Welding Estimator Signed off the nurse case management her mentation Labs and medication were reviewed.. Continue same treatment. Continue with symptomatic treatment. Resume home medication. Monitor labs and vitals. DVT and GI prophylaxis. Further recommendations as per clinical course of the patient DVT prophylaxis: Eliquis which was held In case he would need surgery, we don't put him on Lovenox 60 mg twice daily as patient is an chronic atrial fibrillation GI prophylaxis: Protonix PT/OT Deferred No code Prognosis is very guarded
[2022-11-25 11:53] LABS: Glucose,Whole Blood 246 mg/dL (70-110)
--- NOTE | 2022-11-25 13:24 | P.PN ---
Subjective Progress Note Date: 11/25/22 Principal diagnosis: Acute on chronic dyspnea and right-sided heart failure with cor pulmonale and hepatic encephalopathy. This is an 82-year-old the patient was hospitalized 2 days back because of shortness of breath, orthopnea, paroxysmal nocturnal dyspnea and significant edema in the lower extremity bilaterally. The patient is morbidly obese with a BMI of 40.4. The patient has obstructive sleep apnea. The patient also has chronic kidney disease, stage III, diabetes mellitus type 2, chronic into fibrillation and signs of chronic right-sided heart failure. The patient is also [id number] smoking history. He was not diagnosed having COPD in the past. The maternal Lasix on outpatient basis. Since his admission, the patient denies having any major improvement. Continues to have shortness of breath cough and congestion and extensive edema and his scrotum, abdomen and lower oximetry is bilaterally. Based on that, Pulmicort consultation was requested. The patient is on long-term and coagulation with Eliquis. The patient has no chest pain. No syncope. He is producing urine output and the patient has been negative fluid balance over the past 24 hours. Nevertheless, the balance of the fluid has not been enough to improve any of his symptoms. His chest x-ray at time of admission was consistent with CHF with bilateral pleural effusions and cardiac megaly and bibasilar pulmonary infiltrates. There is evidence of diffuse interstitial pattern. Blood work from today shows a GFR of 36, BUN is 29 with a creatinine of 1.7 and a sodium level is at 132. The discomfort at 6.8 with a hemoglobin of 8 and a platelet count of 57. Glucose at 127. Echocard iogram showed LV systolic function, borderline normal, dilated RV, severe pulmonary hypertension and moderate to severe mitral regurgitation and moderate degree of tricuspid regurgitation. The estimated the right-sided pressure was 64 mmHg. On today's evaluation of 11/13/2022, the patient is feeling better. The patient is less short of breath compared to yesterday and the patient has diabetes at least 3 L and the neck fluid balance is -3 L over the past 24 hours. He reports improvement of the abdominal swelling in the lower extremity edema. The patient remains on Lasix drip at 5 mg an hour and the patient is also Zaroxolyn. Nephrology has been consulted. Renal function remains stable. He is also on examination bronchodilators and steroids as the patient was told to have a component of COPD exacerbation also. CHF and interstitial edema and the findings are essentially stable. The patient is going 7.4 with a hemoglobin of 8.1. BUN is at 35 with a creatinine of 1.5 and a sodium level is at 133. Overall responses has been positive. Awaiting nephrology consultation. Cardiology has also been involved in the case as the patient has right-sided heart failure, chronic A. fib and mitral regurgitation. On 11/14/2022, patient is doing well. The patient continues to diurese ad equately. The patient remains on Lasix drip at 5 mg an hour and the patient is also Zaroxolyn 5 mg by mouth twice a day. Fluid balance is negative in the order of more than 3 L and the patient continues to lose weight. The patient is improved and he is less short of breath. The patient is currently on 2 L of O2 nasal cannula with a pulse ox of 99 200%. No chest pain. No shortness of breath. Lower extremity edema, abdominal wall edema and scrotal edema or improving. On today's blood work, the WBC count 11.9 with a hemoglobin of 7.5. BUN is 45 with a creatinine 0.9 and his sodium level is at 134. He remains on bronchodilators. Remains on IV steroids. The patient remained atrial fib rillation and he has chronic mitral regurgitation. 11/13/2022, the patient remains on Lasix drip and is currently on 10 mg an hour. Doing well. No respiratory difficulties. Is also on Zaroxolyn 5 mg by mouth on a daily basis. The BUN is at 53 with a creatinine of 1.6 which is improved compared to yesterday. Sodium level is at 135. The echoes at 7.7 with a hemoglobin of 7.8 and a platelet count of 55. Noted the patient has chronic normocytic. The platelet count remains unchanged. The overall fluid balance has been negative and the patient weight is currently down to 110 kg and he is in negative fluid balance of at least 3.4 L over the past 24 hours. 11/16/2022, condition is essentially stable and the patient remains on Lasix drip at 10 mg an hour and Zaroxolyn 5 mg by mouth daily. The patient's body weight is down to 104 kg yesterday and the patient has been another 3.5 L negative fluid balance since yesterday. The patient is stable. He is a 65 with a creatinine of 2.01. Sodium is at 134. Serum bicarb is at 39. The patient is showing marked improvement in his lower extremity edema. He is still complaining of some exertional dyspnea. He remains on oxygen at 2 L/m nasal cannula. The patient otherwise has no complaints. Remains on anticoagulation with Eliquis 2.5 mg twice a day. Rest of the home medications are unchanged and the patient is also on a prednisone burst taper starting with 40 mg by mouth daily. 11/17/2022, the patient remains on Lasix drip and Zaroxolyn. The patient's weight is down to 97 kg and the patient has lost another 4 L of fluid balance over the past 24 hours. The breathing is stable for now. He is still on 2 L of oxygen by nasal cannula. He has developed some metabolic alkalosis. There is essentially related to diuresis. Serum bicarbs of 44. BUN is at 74 with a creatinine 1.9. The hemoglobin is at 7.7. Remains on anticoagulation. Also completing a course of prednisone burst taper. On 11/18/2022, the patient's condition is decompensated. Overnight, the patient became aggressive, confused and agitated. He was given samples 25 mg at bedtime it was also given Haldol IV. This morning is more lethargic. He is aggressively diuresed with Lasix and Zaroxolyn. The patient is currently off Lasix. He was switched to oral Demadex and I discontinued Zaroxolyn. Note that the patient has become quite alkalotic. He received Diamox and the blood gas that was done today shows a pH of 7.3 with a pCO2 of 40. The pO2 was 44 on FiO2 of 28%. At the same time, the patient's serum bicarb was at 34 and this dropped from 41. Rest of the blood work shows a BUN of 69 and a creatinine of 1.9 and sodium levels of 136. Potassium levels at 3.4. WBC count is at 17.4 with a hemoglobin of 7.8 and a platelet count of 82. His serum ammonia level was found to be quite elevated at 255. The patient was started on lactulose enemas. CAT scan of the brain showed no acute abnormalities. A repeat chest x-ray was done today shows cardiomegaly with mild vascular congestion and overall picture is essentially improved. Reevaluated today on 11/19/22, patient, patient is sleeping, his is at bedside, apparently he was given some sedation earlier today for extreme agitation and confusion. Patient has been receiving Haldol. Patient remains on diuretics, remains on treatment for hyperammonemia level. Intermittently encephalopathic and agitated, although his ammonia level is down to 48 today. CBC is relatively normal except for hemoglobin of 7.8 WBC count of 17.4, INR is 1.6 Reevaluated today on 11/20/2022, patient seems to be much better today, more awake, still a bit confused, is at bedside. Patient is on room air, does not seem to be in any distress. Labs showed hemoglobin of 7.7 elevated sodium of 148 low potassium of 2.7 and renal profile about the same with creatinine of 1.65. His liver enzymes showed a elevated total bilirubin of 3.6 ALT of 57 and AST of 172. Seen by gastroenterology on consultation, felt to have liver cirrhosis hepatic encephalopathy congestive heart failure, the recommendation is to continue lactulose, continue supportive care measures, and avoidance of hepatotoxic drugs. Reevaluated today on 11/21/2022, continues to do well, confusion is improving but not completely resolved. Ammonia level is back to normal. Patient is on room air, not in any distress, continues to have significant electrolytes abnormalities with hypernatremia sodium of 148 hypokalemia potassium of 2.8 borderline renal functioning with GFR of 38. Patient is hemodynamically stable, O2 sats is on the percent on 4 L. Reevaluated today on 11/25/2022, patient seems to be quite comfortable, sitting in a bedside chair, not in any distress, overall the patient has demonstrated significant improvement in his mental status, he also demonstrated improvement in his abdominal discomfort and supposedly acute appendicitis, and abdominal distention. Patient is already having bowel movements, mentation is significantly improved. WBC count is 20,000 hemoglobin is 7.6 electrolytes showed low potassium of 2.9 otherwise unremarkable. Renal functioning is improving BUN is 57 creatinine 1.70. Patient is presently on room air with O2 saturation on the percent Objective - Vital Signs Vital signs: Vital Signs Temp 97.6 F 11/25/22 12:16 Pulse 70 11/25/22 12:30 Resp 18 11/25/22 12:16 BP 114/71 11/25/22 12:16 Pulse Ox 100 11/25/22 12:16 FiO2 28 11/17/22 08:36 Intake & Output 11/24/22 11/25/22 11/25/22 18:59 06:59 18:59 Output Total 955 1226 Balance -955 -1226 Output: Gastric Drainage 250 Drainage 450 NG TUBE 450 Urine 705 775 Urine/Stool Mix 1 Other: Voiding Method Indwelling Catheter Indwelling Catheter Indwelling Catheter # Voids 1 # Bowel Movements 1 1 - Exam GENERAL: 82-year-old white male in no distress. On room air HEENT: Devora, EOMI, nonicteric, EOMI, nonicteric, nasogastric tube has been removed. Chest: Symmetrical chest expansion Pulmonary: Diminished breath sounds at the bases no rhonchi no wheezes Abdomen:, Soft nontender no megaly no rebound no guarding MUSCULOSKELETAL: no deformities and no limitation in range of motion Extremities: No clubbing, trace of pedal edema noted. : Alert oriented 3 no gross focal deficits. Skin: No rashes - Labs CBC & Chem 7: 11/25/22 07:27 11/25/22 07:27 Labs: Abnormal Lab Results - Last 24 Hours (Table) 11/24/22 11/24/22 11/24/22 Range/Units 16:22 16:37 19:52 WBC (3.8-10.6) k/uL RBC (4.30-5.90) m/uL Hgb (13.0-17.5) gm/dL Hct (39.0-53.0) % MCV (80.0-100.0) fL MCH (25.0-35.0) pg RDW (11.5-15.5) % Plt Count (150-450) k/uL Neutrophils # (Manual) (1.3-7.7) k/uL Eosinophils # (Manual) (0-0.7) k/uL Myelocytes # (Manual) (0) k/uL Nucleated RBCs (0-0) /100 WBC Macrocytosis Potassium (3.5-5.1) mmol/L Carbon Dioxide (22-30) mmol/L BUN (9-20) mg/dL Creatinine (0.66-1.25) mg/dL Glucose (74-99) mg/dL POC Glucose (mg/dL) 226 H 202 H (70-110) mg/dL Calcium (8.4-10.2) mg/dL Magnesium 2.4 H (1.6-2.3) mg/dL 11/25/22 11/25/22 11/25/22 Range/Units 05:59 07:27 07:27 WBC 20.0 H (3.8-10.6) k/uL RBC 2.00 L (4.30-5.90) m/uL Hgb 7.6 L (13.0-17.5) gm/dL Hct 23.1 L (39.0-53.0) % MCV 115.6 H (80.0-100.0) fL MCH 37.7 H (25.0-35.0) pg RDW 21.4 H (11.5-15.5) % Plt Count 91 L (150-450) k/uL Neutrophils # (Manual) 15.00 H (1.3-7.7) k/uL Eosinophils # (Manual) 1.80 H (0-0.7) k/uL Myelocytes # (Manual) 0.20 H (0) k/uL Nucleated RBCs 2 H (0-0) /100 WBC Macrocytosis Marked A Potassium 2.9 L (3.5-5.1) mmol/L Carbon Dioxide 33 H (22-30) mmol/L BUN 57 H (9-20) mg/dL Creatinine 1.70 H (0.66-1.25) mg/dL Glucose 127 H (74-99) mg/dL POC Glucose (mg/dL) 153 H (70-110) mg/dL Calcium 7.7 L (8.4-10.2) mg/dL Magnesium 2.4 H (1.6-2.3) mg/dL 11/25/22 Range/Units 11:51 WBC (3.8-10.6) k/uL RBC (4.30-5.90) m/uL Hgb (13.0-17.5) gm/dL Hct (39.0-53.0) % MCV (80.0-100.0) fL MCH (25.0-35.0) pg RDW (11.5-15.5) % Plt Count (150-450) k/uL Neutrophils # (Manual) (1.3-7.7) k/uL Eosinophils # (Manual) (0-0.7) k/uL Myelocytes # (Manual) (0) k/uL Nucleated RBCs (0-0) /100 WBC Macrocytosis Potassium (3.5-5.1) mmol/L Carbon Dioxide (22-30) mmol/L BUN (9-20) mg/dL Creatinine (0.66-1.25) mg/dL Glucose (74-99) mg/dL POC Glucose (mg/dL) 246 H (70-110) mg/dL Calcium (8.4-10.2) mg/dL Magnesium (1.6-2.3) mg/dL Microbiology - Last 24 Hours (Table) 11/18/22 14:40 Blood Culture - Final Blood Assessment and Plan Assessment: Impression: Acute hepatic encephalopathy, suspect liver cirrhosis secondary to remote alcohol abuse. Resolved. Altered mental status secondary to above, acute metabolic toxic encephalopathy Acute diastolic congestive heart failure Acute on chronic kidney disease, improving. Acute metabolic alkalosis secondary to diuretics Moderate severe pulmonary hypertension Moderate severe mitral regurgitation History of mild COPD Chronic atrial fibrillation History of colonic polyps Type 2 diabetes with diabetic nephropathy History of CVA without any residual deficit Acute appendicitis and ileus, resolved. Treated conservatively. Recommendation: Discontinue oxygen Continue to monitor daily labs. Advanced diet as tolerated Continue lactulose Continue diuretics including torsemide and Zaroxolyn Taper the prednisone accordingly Will follow as needed Time with Patient: Less than 30
[2022-11-25 16:41] LABS: Glucose,Whole Blood 314 mg/dL (70-110)
[2022-11-25 20:29] LABS: Glucose,Whole Blood 254 mg/dL (70-110)
[2022-11-25] MEDS: DORZOLAMIDE-TIMOLOL 2.23%/0.68 10ML BTL BOTH EYES SCH (20:53)
[2022-11-25] MEDS: LATANOPROST 0.005% OPHTH DROPS 2.5 ML BTL BOTH EYES SCH (20:53)
[2022-11-25] MEDS: TAMSULOSIN 0.4 MG CAP.ER.24H PO SCH (20:53)
[2022-11-26] MEDS: PIPERACILLIN-TAZOBACTAM 3.375 GM in SODIUM CHLORIDE 0.9% 100 ML IVPB SCH ×3 (00:55→15:06)
[2022-11-26 06:23] LABS: Glucose,Whole Blood 155 mg/dL (70-110)
[2022-11-26] MEDS: PANTOPRAZOLE 40 MG TABLET PO SCH (07:08)
[2022-11-26] MEDS: INSULIN ASPART (NovoLOG) 100 UNIT/ML VIAL SQ SCH ×4 (07:09→20:56)
[2022-11-26] MEDS: FERROUS SULFATE 325 MG TAB PO SCH (08:09)
[2022-11-26] MEDS: predniSONE 10 MG TAB PO SCH (08:09)
[2022-11-26] MEDS: ATORVASTATIN 40 MG TAB PO SCH (08:09)
[2022-11-26] MEDS: THIAMINE 100 MG/ML 2 ML VIAL IVP SCH (08:09)
[2022-11-26] MEDS: MULTIVITAMINS, THERA 1 EACH TAB PO SCH (08:09)
[2022-11-26] MEDS: RIFAXIMIN 550 MG TABLET PO SCH ×2 (08:09→20:56)
[2022-11-26] MEDS: POTASSIUM CHLORIDE ER 20 MEQ TAB.ER PO SCH (08:09)
[2022-11-26] MEDS: DEXTROSE 5% IN WATER 1,000 ML IV SCH (08:10)
[2022-11-26] MEDS: ENOXAPARIN 60 MG/0.6 ML SYRINGE SQ SCH ×2 (08:10→20:56)
[2022-11-26] MEDS: IPRATROPIUM-ALBUTEROL 3 ML NEB INHALATION SCH ×3 (09:24→20:42)
[2022-11-26] MEDS: BUDESONIDE 0.5 MG/2 ML NEBU INHALATION SCH ×2 (09:24→20:42)
--- NOTE | 2022-11-26 10:35 | P.PN ---
Subjective Progress Note Date: 11/26/22 Principal diagnosis: Ileus Patient doing well today. Tolerating liquid diet. No nausea or vomiting. Does not feel bloated. White blood cell count remains elevated. He is afebrile. Objective - Vital Signs Vital signs: Vital Signs Temp 98 F 11/26/22 08:00 Pulse 76 11/26/22 09:39 Resp 20 11/26/22 08:00 BP 110/52 11/26/22 08:00 Pulse Ox 98 11/26/22 09:25 FiO2 28 11/17/22 08:36 Intake & Output 11/25/22 11/26/22 11/26/22 18:59 06:59 18:59 Intake Total 240 Output Total 300 Balance -300 240 Weight 82.9 kg Intake: Oral 240 Output: Urine 300 Other: Voiding Method Indwelling Catheter Indwelling Catheter Indwelling Catheter # Bowel Movements 1 1 - Exam Abdomen: Soft, nontender, nondistended - Labs CBC & Chem 7: 11/25/22 07:27 11/25/22 07:27 Labs: Abnormal Lab Results - Last 24 Hours (Table) 11/25/22 11/25/22 11/25/22 Range/Units 11:51 16:39 20:28 POC Glucose (mg/dL) 246 H 314 H 254 H (70-110) mg/dL 11/26/22 Range/Units 06:22 POC Glucose (mg/dL) 155 H (70-110) mg/dL Assessment and Plan (1) Ileus Narrative/Plan: Patient doing better today. Continue advancing diet. We'll try solid foods today. Leukocytosis possibly on the basis of steroid use. Will follow. Current Visit: Yes Status: Acute Code(s): K56.7 - ILEUS, UNSPECIFIED SNOMED Code(s): 790183629
--- NOTE | 2022-11-26 11:02 | P.PN ---
Subjective Patient is seen for follow-up for acute kidney injury. Currently off of diuretics and maintained on IV fluids. Good UOP Serum creatinine at 1.7- 1.9 mg/dL Mentation is back to baseline. Maintained on D5 W at 50 cc/hr NG tube is out. Patient is tolerating oral intake. Objective - Vital Signs Vital signs: Vital Signs Temp 98 F 11/26/22 08:00 Pulse 76 11/26/22 09:39 Resp 20 11/26/22 08:00 BP 110/52 11/26/22 08:00 Pulse Ox 98 11/26/22 09:25 FiO2 28 11/17/22 08:36 Intake & Output 11/25/22 11/26/22 11/26/22 18:59 06:59 18:59 Intake Total 240 Output Total 300 Balance -300 240 Weight 82.9 kg Intake: Oral 240 Output: Urine 300 Other: Voiding Method Indwelling Catheter Indwelling Catheter Indwelling Catheter # Bowel Movements 1 1 - Exam Patient is awake. Sitting up in bed. Able to communicate. Mentation at baseline Alert oriented 3 Examination of the heart S1 and S2 Examination of the lungs bilateral breath sounds are heard Abdomen is soft nontender Examination lower extremities shows no significant edema - Labs CBC & Chem 7: 11/25/22 07:27 11/25/22 07:27 Labs: Abnormal Lab Results - Last 24 Hours (Table) 11/25/22 11/25/22 11/25/22 Range/Units 11:51 16:39 20:28 POC Glucose (mg/dL) 246 H 314 H 254 H (70-110) mg/dL 11/26/22 Range/Units 06:22 POC Glucose (mg/dL) 155 H (70-110) mg/dL Assessment and Plan Assessment: 1. Acute kidney injury cardiorenal, status post diuretics, restarted IV fluids. UA is benign. Renal function improved. Serum creatinine staying at about 1.7 mg/dL 2. Chronic kidney disease NKF stage III a secondary to nephrosclerosis with baseline creatinine 1.2-1.3 mg/dL 3. Severe pulmonary hypertension with moderate to severe mitral regurgitation and chronic lower extremity edema 4. Acute on chronic CHF with preserved ejection fraction 5. Coronary artery disease with history of previous coronary stenting 6. Metabolic alkalosis secondary to diuresis, improved with hydration. 7. Hypernatremia associated with free water deficit. 8. Ileus with NG tube, being followed by surgery. NG tube is out 9. Hypokalemia associated with GI fluid loss, currently being replaced Plan: Follow-up on labs from today Okay to discharge from nephrology standpoint Follow-up in the office in about 1 week.
[2022-11-26 11:16] LABS: Glucose,Whole Blood 174 mg/dL (70-110)
--- NOTE | 2022-11-26 12:03 | P.PN ---
Subjective Progress Note Date: 11/26/22 Principal diagnosis: Hepatic encephalopathy This is a 82-year-old male who presented to the emergency department 11 days ago with complaints of shortness of breath and lower extremity swelling. Patient was admitted with acute on chronic congestive heart failure with acute dyspnea, and severe pulmonary hypertension. He has a past medical history including congestive heart failure, chronic lower extremity edema, chronic stage III kidney disease, diabetes mellitus2, obstructive sleep apnea with CPAP, previous history of CVA, skin cancer, chronic hypoxic respiratory failure, chronic atrial fibrillation, COPD and myodysplasia. His who is at the bedside states that the patient became significantly confused about 2-3 days ago. She states at that time he was started on a new oral medication. He was noted to have a significantly elevated ammonia level at 255, elevated LFTs and underwent a liver ultrasound showing cirrhosis of the liver. Gastroenterology was consulted for cirrhosis of the liver. Patient is currently confused, lethargic, and unable to obtain history from patient. History obtained from patient's and chart. She states he has no previous history of cirrhosis of the liver, no history of hepatic encephalopathy. She does state that he was a heavy drinker daily for about 40 years. She states that he quit drinking about 11 or 12 years ago. 11/20/2022 Patient is seen and examined today as a follow-up. He is more awake and alert. He is alert 1. He was able to eat a little breakfast this morning. HE has no complaints. He is still confused and a poor historian, and unable to give any details on past medical history. WBC 10.6 hemoglobin 7.7 platelet count 72,000 sodium 148 potassium 2.7 BUN 73 creatinine 1.65 total bilirubin 3.6 AST 172 ALT 57 alkaline phosphatase 74 ammonia 21 alpha 1 antitrypsin 148 AFP tumor marker less than 3.0, a hepatitis panel nonreactive 11/21/2022 Patient seen and examined as a follow-up. He is a little more awake today but easily falls asleep. He did eat a low-fat of his breakfast. Complaints of some abdominal discomfort and he has abdominal distention. Nursing reported that he only had 1 bowel movement yesterday 1 through the night and one this morning. Patient was CT of the abdomen and pelvis reported dilated appendix with gas within the tip. Nonspecific surrounding fluid/stranding. Findings could be seen with acute appendicitis. Gas and stool-filled dilated colon and rectum without focal transition point suggestive of an colonic ileus. Infrarenal abdominal aortic aneurysm measuring up to 5.3 cm, hepatic cirrhosis with findings suggestive of portal hypertension with trace ascites and splenic collaterals, right adrenal gland lipid rich adenoma, nonobstructive bilateral renal calculi. The patient is not having any nausea or vomiting he's been afebrile. 11/22/2022 Patient seen and examined as a follow-up. He is sitting up in bed he is a little more alert today. States he has a little bit of lower abdominal cramping. No nausea or vomiting. He had a NG tube placed yesterday evening with approximately 200 mL of yellow/clear output. He has been afebrile. He did have an increase in WBC count 23.9, hemoglobin 7.5 hematocrit 24 platelet count 73,000 total bilirubin 2.5 AST 87 ALT 50 alkaline phosphatase 73 ammonia 11 11/23/2022 Patient seen and examined today as a follow-up. He is laying in bed. is by his bedside. He is again more awake and alert today. He is denying any abdominal pain. He reportedly had a small loose bowel movement through the night. No reported blood in his stool. He denies any nausea or vomiting. He pulled out his NG tube through the night he currently has one in place to assist third one he has approximately 100 mL out of maroon colored drainage. Repeat CT of the abdomen and pelvis reporting similar appearing appendix with gas within the tip. Fluid around the appendix is felt to be secondary to ascites. Gas and stool-filled dilated colon and rectum without focal transition point suggestive of an colonic ileus. Infrarenal abdominal aortic aneurysm measuring up to 5.3 cm. Hepatic cirrhosis with findings suggestive of portal hypertension with trace ascites and splenic collaterals. Right adrenal gland lipid rich adenoma. Nonobstructive bilateral renal calculi 11/26/2022 Patient seen and examined today as follow-up. He continues to improve over the weekend. Abdominal distention improving. NG tube was pulled out yesterday. He was started on clear liquid diet by general surgery. Denies any nausea or vomiting. Patient's mentation back to baseline. His lactulose had been discontinued. He remains on Xifaxin. Objective - Vital Signs Vital signs: Vital Signs Temp 98 F 11/26/22 00:00 Pulse 80 11/26/22 04:00 Resp 18 11/26/22 04:00 BP 111/64 11/26/22 04:00 Pulse Ox 98 11/26/22 04:00 FiO2 28 11/17/22 08:36 Intake & Output 11/25/22 11/26/22 11/26/22 18:59 06:59 18:59 Output Total 300 Balance -300 Weight 82.9 kg Output: Urine 300 Other: Voiding Method Indwelling Catheter Indwelling Catheter # Bowel Movements 1 - Exam General appearance: The patient is awake and alert, appears in no acute distress. HET: Head is normocephalic and atraumatic. Conjunctiva pink. Sclera anicteric. Neck: Supple without lymphadenopathy. Abdomen: Soft, obese, nontender, mildly distended. No guarding or rigidity. Extremities: Normal skin color and turgor. No pedal edema Skin: No rashes, no jaundice Neurological: More alert today. Answers questions appropriately. - Labs CBC & Chem 7: 11/25/22 07:27 11/25/22 07:27 Labs: Abnormal Lab Results - Last 24 Hours (Table) 11/25/22 11/25/22 11/25/22 Range/Units 07:27 11:51 16:39 WBC 20.0 H (3.8-10.6) k/uL Neutrophils # (Manual) 15.00 H (1.3-7.7) k/uL Eosinophils # (Manual) 1.80 H (0-0.7) k/uL Myelocytes # (Manual) 0.20 H (0) k/uL Nucleated RBCs 2 H (0-0) /100 WBC POC Glucose (mg/dL) 246 H 314 H (70-110) mg/dL 11/25/22 11/26/22 Range/Units 20:28 06:22 WBC (3.8-10.6) k/uL Neutrophils # (Manual) (1.3-7.7) k/uL Eosinophils # (Manual) (0-0.7) k/uL Myelocytes # (Manual) (0) k/uL Nucleated RBCs (0-0) /100 WBC POC Glucose (mg/dL) 254 H 155 H (70-110) mg/dL Assessment and Plan (1) Liver cirrhosis Narrative/Plan: 82-year-old male who presented with shortness of breath with acute on chronic congestive heart failure with history of multiple comorbidities who recently became confused, with altered mental status changes. He underwent a CT of the brain that showed no acute findings. He did have some mild elevation in his bilirubin and AST with history of alcohol abuse. Ammonia level was drawn and came back at 255. He was started on lactulose 200 mg every 6 hours per rectum with improvement in his ammonia level to 48 today. No prior history of cir rhosis of the liver hepatic encephalopathy however reports long-standing history of alcohol dependency of 40 years. Ultrasound of the liver does report nodular hepatic contour which may reflect underlying cirrhotic liver disease. Patient likely has cirrhosis of the liver from many years of alcohol abuse, with hepatic encephalopathy however need to consider other possible etiologies. Will get AFP, hepatitis panel, alpha-1 antitrypsin, DAVID. Mentation slowly improving. Will need to continue outpatient monitoring and continue with lactulose. Add Xifaxin. Liver serologies workup negative to date, as well as hepatitis panel nonreactive. 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 Current Visit: Yes Status: Acute Code(s): K74.60 - UNSPECIFIED CIRRHOSIS OF LIVER SNOMED Code(s): 04954041 (2) Hepatic encephalopathy Narrative/Plan: Need to resume lactulose for decompensated cirrhosis of liver with hepatic encephalopathy. Continue Xifaxan as ordered. Current Visit: Yes Status: Acute Code(s): K76.82 - HEPATIC ENCEPHALOPATHY SNOMED Code(s): 75691699 (3) Congestive heart failure Current Visit: Yes Status: Acute Code(s): I50.9 - HEART FAILURE, UNSPECIFIED SNOMED Code(s): 95230570 (4) Atrial fibrillation Current Visit: Yes Status: Acute Code(s): I48.91 - UNSPECIFIED ATRIAL FIBRILLATION SNOMED Code(s): 21145001 (5) Dyspnea Current Visit: Yes Status: Acute Code(s): R06.00 - DYSPNEA, UNSPECIFIED SNOMED Code(s): 836625285 (6) Chronic kidney disease Current Visit: Yes Status: Acute Code(s): N18.9 - CHRONIC KIDNEY DISEASE, UNSPECIFIED SNOMED Code(s): 415226345 (7) MDS (myelodysplastic syndrome) Current Visit: No Status: Chronic Priority: High Code(s): D46.9 - MYELODYSPLASTIC SYNDROME, UNSPECIFIED SNOMED Code(s): 677998139 (8) Hypokalemia Narrative/Plan: Replace potassium per protocol Current Visit: Yes Status: Acute Code(s): E87.6 - HYPOKALEMIA SNOMED Code(s): 82733564 (9) Ileus Narrative/Plan: Continue with recommendations from general surgery Current Visit: Yes Status: Acute Code(s): K56.7 - ILEUS, UNSPECIFIED SNOMED Code(s): 117944844 Plan: 1. Continue symptomatic and supportive care 2. Resume lactulose at 30 g twice a day titrate to have bowel movement 2-3 daily 3. Add Xifaxin 550 mg BID 4. Continue alcohol abstinence and avoid hepatotoxic medications 5. Continue with recommendations from general surgery 6. Replace potassium per protocol 7. Continue medical management per primary team and multiple consultants 8. No further workup from gastroenterology, patient is cleared for discharge from gastroenterology with follow-up in the office Follow-up with gastroenterology in 1-2 weeks following discharge Thank you for this consultation, we will continue to follow Dr. Devan Moody I agree with the dictator's note, documented as a scribe by Mary West.
--- NOTE | 2022-11-26 12:21 | P.PN ---
Subjective Progress Note Date: 11/26/22 This is an 82-year-old the patient was hospitalized 2 days back because of shortness of breath, orthopnea, paroxysmal nocturnal dyspnea and significant edema in the lower extremity bilaterally. The patient is morbidly obese with a BMI of 40.4. The patient has obstructive sleep apnea. The patient also has chronic kidney disease, stage III, diabetes mellitus type 2, chronic into fibrillation and signs of chronic right-sided heart failure. The patient is also [id number] smoking history. He was not diagnosed having COPD in the past. The maternal Lasix on outpatient basis. Since his admission, the patient denies having any major improvement. Continues to have shortness of breath cough and congestion and extensive edema and his scrotum, abdomen and lower oximetry is bilaterally. Based on that, Pulmicort consultation was requested. The patient is on long-term and coagulation with Eliquis. The patient has no chest pain. No syncope. He is producing urine output and the patient has been negative fluid balance over the past 24 hours. Nevertheless, the balance of the fluid has not been enough to improve any of his symptoms. His chest x-ray at time of admission was consistent with CHF with bilateral pleural effusions and cardiac megaly and bibasilar pulmonary infiltrates. There is evidence of diffuse interstitial pattern. Blood work from today shows a GFR of 36, BUN is 29 with a creatinine of 1.7 and a sodium level is at 132. The discomfort at 6.8 with a hemoglobin of 8 and a platelet count of 57. Glucose at 127. Echocardiogram showed LV systolic function, borderline normal, dilated RV, severe pulmonary hypertension and moderate to severe mitral regurgitation and moderate degree of tricuspid regurgitation. The estimated the right-sided pressure was 64 mmHg. On today's evaluation of 11/13/2022, the patient is feeling better. The patient is less short of breath compared to yesterday and the patient has diabetes at least 3 L and the neck fluid balance is -3 L over the past 24 hours. He reports improvement of the abdominal swelling in the lower extremity edema. The patient remains on Lasix drip at 5 mg an hour and the patient is also Zaroxolyn. Nephrology has been consulted. Renal function remains stable. He is also on examination bronchodilators and steroids as the patient was told to have a component of COPD exacerbation also. CHF and interstitial edema and the findings are essentially stable. The patient is going 7.4 with a hemoglobin of 8.1. BUN is at 35 with a creatinine of 1.5 and a sodium level is at 133. Overall responses has been positive. Awaiting nephrology consultation. Cardiology has also been involved in the case as the patient has right-sided heart failure, chronic A. fib and mitral regurgitation. On 11/14/2022, patient is doing well. The patient continues to diurese adequately. The patient remains on Lasix drip at 5 mg an hour and the patient is also Zaroxolyn 5 mg by mouth twice a day. Fluid balance is negative in the order of more than 3 L and the patient continues to lose weight. The patient is improved and he is less short of breath. The patient is currently on 2 L of O2 nasal cannula with a pulse ox of 99 200%. No chest pain. No shortness of breath. Lower extremity edema, abdominal wall edema and scrotal edema or improving. On today's blood work, the WBC count 11.9 with a hemoglobin of 7.5. BUN is 45 with a creatinine 0.9 and his sodium level is at 134. He remains on bronchodilators. Remains on IV steroids. The patient remained atrial fibrillation and he has chronic mitral regurgitation. 11/13/2022, the patient remains on Lasix drip and is currently on 10 mg an hour. Doing well. No respiratory difficulties. Is also on Zaroxolyn 5 mg by mouth on a daily basis. The BUN is at 53 with a creatinine of 1.6 which is improved compared to yesterday. Sodium level is at 135. The echoes at 7.7 with a hemoglobin of 7.8 and a platelet count of 55. Noted the patient has chronic no rmocytic. The platelet count remains unchanged. The overall fluid balance has been negative and the patient weight is currently down to 110 kg and he is in negative fluid balance of at least 3.4 L over the past 24 hours. 11/16/2022, condition is essentially stable and the patient remains on Lasix drip at 10 mg an hour and Zaroxolyn 5 mg by mouth daily. The patient's body weight is down to 104 kg yesterday and the patient has been another 3.5 L negative fluid balance since yesterday. The patient is stable. He is a 65 with a creatinine of 2.01. Sodium is at 134. Serum bicarb is at 39. The patient is showing marked improvement in his lower extremity edema. He is still complaining of some exertional dyspnea. He remains on oxygen at 2 L/m nasal cannula. The patient otherwise has no complaints. Remains on anticoagulation with Eliquis 2.5 mg twice a day. Rest of the home medications are unchanged and the patient is also on a prednisone burst taper starting with 40 mg by mouth da [place]. 11/17/2022, the patient remains on Lasix drip and Zaroxolyn. The patient's weight is down to 97 kg and the patient has lost another 4 L of fluid balance over the past 24 hours. The breathing is stable for now. He is still on 2 L of oxygen by nasal cannula. He has developed some metabolic alkalosis. There is essentially related to diuresis. Serum bicarbs of 44. BUN is at 74 with a crea tinine 1.9. The hemoglobin is at 7.7. Remains on anticoagulation. Also completing a course of prednisone burst taper. On 11/18/2022, the patient's condition is decompensated. Overnight, the patient became aggressive, confused and agitated. He was given samples 25 mg at bedtime it was also given Haldol IV. This morning is more lethargic. He is aggressively diuresed with Lasix and Zaroxolyn. The patient is currently off Lasix. He was switched to oral Demadex and I discontinued Zaroxolyn. Note that the patient has become quite alkalotic. He received Diamox and the blood gas that was done today shows a pH of 7.3 with a pCO2 of 40. The pO2 was 44 on FiO2 of 28%. At the same time, the patient's serum bicarb was at 34 and this dropped from 41. Rest of the blood work shows a BUN of 69 and a creatinine of 1.9 and sodium levels of 136. Potassium levels at 3.4. WBC count is at 17.4 with a hemoglobin of 7.8 and a platelet count of 82. His serum ammonia level was found to be quite elevated at 255. The patient was started on lactulose enemas. CAT scan of the brain showed no acute abnormalities. A repeat chest x-ray was done today shows cardiomegaly with mild vascular congestion and overall picture is essentially improved. Reevaluated today on 11/19/22, patient, patient is sleeping, his is at bedside, apparently he was given some sedation earlier today for extreme a gitation and confusion. Patient has been receiving Haldol. Patient remains on diuretics, remains on treatment for hyperammonemia level. Intermittently encephalopathic and agitated, although his ammonia level is down to 48 today. CBC is relatively normal except for hemoglobin of 7.8 WBC count of 17.4, INR is 1.6 Reevaluated today on 11/20/2022, patient seems to be much better today, more awake, still a bit confused, is at bedside. Patient is on room air, does not seem to be in any distress. Labs showed hemoglobin of 7.7 elevated sodium of 148 low potassium of 2.7 and renal profile about the same with creatinine of 1.65. His liver enzymes showed a elevated total bilirubin of 3.6 ALT of 57 and AST of 172. Seen by gastroenterology on consultation, felt to have liver cirrhosis hepatic encephalopathy congestive heart failure, the recommendation is to continue lactulose, continue supportive care measures, and avoidance of hepatotoxic drugs. Reevaluated today on 11/21/2022, continues to do well, confusion is improving but not completely resolved. Ammonia level is back to normal. Patient is on room air, not in any distress, continues to have significant electrolytes abnormali ties with hypernatremia sodium of 148 hypokalemia potassium of 2.8 borderline renal functioning with GFR of 38. Patient is hemodynamically stable, O2 sats is on the percent on 4 L. The patient is seen today 11/22/2022 in follow-up on the selective care unit. He is currently awake and alert. Maintaining O2 saturations in the upper 90s on 4 L/m per nasal cannula. He's been afebrile. Hemodynamically stable. Computed tomography scan of the abdomen and pelvis revealed a dilated appendix with gas within the tip. There is some nonspecific surrounding fluid/stranding. Findings could be seen with acute appendicitis. Gas and stool filled dilated colon and rectum without focal transition point suggestive of an colonic ileus. 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 Hepatic cirrhosis with findings suggestive of portal hypertension with trace ascites and splenic collaterals. Right adrenal gland lipid rich adenoma. Nonobstructive bilateral renal calculi. Surgical services are following. Nasogastric tube has been placed. Today's chest x-ray reveals cardiomegaly. Chronic parenchymal changes without new focal airspace opacity, pleural effusion or pneumothorax. Blood cultures revealed no growth. White count 23.9. Hemoglobin 7.5. MCV is 122. Platelet count 73,000. Sodium 136. Potassium 3.1. Bicarb 30. BUN 59. Creatinine 1.74. Glucose 337. He is continued on DuoNeb inhalations, Pulmicort inhalations, prednisone taper. She is on Xifaxan, Zosyn, Levaquin. Lovenox for anticoagulation. The patient is seen today 11/23/2022 in follow-up on the selective care unit. He is awake, alert, oriented. Resting fairly comfortably in bed. Denies any worsening shortness of breath, cough or congestion. Denies any significant abdominal pain. Nasogastric tube remains in place. Chest x-ray reveals cardiomegaly. Chronic parenchymal changes without any new focal airspace opacities, pleural effusion or pneumothorax. He is maintaining good O2 saturations in the upper 90s on 2 L/m per nasal cannula. He is afebrile. Hemodynamically stable. White count 19.6. Hemoglobin 7.5. Platelets 94,000. Sodium 146. Potassium 2.9. Bicarb 33. BUN 65. Creatinine 1.94. Glucose 137. He remains on rifaximin and Zosyn. Continued on bronchodilators. Patient is seen today 11/24/2022 in follow-up on the selective care unit. He is resting comfortably in bed. He remains awake, alert, oriented. His is at the bedside. He is having bowel movements. Nasogastric tube remains in place. Blood cultures revealed no growth. Blood sugar 156. He is continued on DuoNeb inhalations. Prednisone taper. Remains on Zosyn. Remains on rifaximin. Anticoagulated with Lovenox. Continued on D5W at 50 MLS per hour. The patient is seen today 11/26/2022 in follow-up on the selective care unit. He remains awake and alert oriented. His is at the bedside. He is resting comfortably in bed. He is having bowel movements. Nasogastric tube has been discontinued. He is tolerating a liquid diet. Denies any abdominal discomfort. No nausea or vomiting. Blood cultures revealed no growth in blood glucose 174. He remains on DuoNeb inhalations, Pulmicort inhalations. Prednisone taper. Antibiotics in the form of Zosyn. Lovenox for anticoagulation. Objective - Vital Signs Vital signs: Vital Signs Temp 97.7 F 11/26/22 11:43 Pulse 78 11/26/22 11:43 Resp 18 11/26/22 11:43 BP 107/55 11/26/22 11:43 Pulse Ox 97 11/26/22 11:43 FiO2 28 11/17/22 08:36 Intake & Output 11/25/22 11/26/22 11/26/22 18:59 06:59 18:59 Intake Total 240 Output Total 300 Balance -300 240 Weight 82.9 kg Intake: Oral 240 Output: Urine 300 Other: Voiding Method Indwelling Catheter Indwelling Catheter Indwelling Catheter # Bowel Movements 1 1 - Exam GENERAL EXAM: Alert, oriented, 82-year-old male, on room air, comfortable in no apparent distress. HEAD: Normocephalic. EYES: Normal reaction of pupils, equal size. NOSE: Nasogastric tube secured in place. Clear with pink turbinates. THROAT: No erythema or exudates. NECK: No masses, no JVD. CHEST: No chest wall deformity. LUNGS: Equal air entry with no crackles, wheeze, rhonchi or dullness. CVS: S1 and S2 normal with no audible murmur, regular rhythm. ABDOMEN: Soft, positive bowel sounds, no guarding or rigidity. SPINE: No scoliosis or deformity SKIN: No rashes CENTRAL NERVOUS SYSTEM: No focal deficits, tone is normal in all 4 extremities. EXTREMITIES: There is 1+ peripheral edema. No clubbing, no cyanosis. Periph eral pulses are intact. - Labs CBC & Chem 7: 11/25/22 07:27 11/25/22 07:27 Labs: Abnormal Lab Results - Last 24 Hours (Table) 11/25/22 11/25/22 11/26/22 Range/Units 16:39 20:28 06:22 POC Glucose (mg/dL) 314 H 254 H 155 H (70-110) mg/dL 11/26/22 Range/Units 11:14 POC Glucose (mg/dL) 174 H (70-110) mg/dL Assessment and Plan Assessment: Acute hepatic encephalopathy, suspect liver cirrhosis secondary to remote alcohol abuse. Computed tomography scan of the abdomen and pelvis revealed a dilated appendix with gas within the tip. There is some nonspecific surrounding fluid/stranding. Findings could be seen with acute appendicitis. Gas and stool filled dilated colon and rectum without focal transition point suggestive of an colonic ileus. 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 Hepatic cirrhosis with findings suggestive of portal hypertension with trace ascites and splenic collaterals. Right adrenal gland lipid rich adenoma. Nonobstructive bilateral renal calculi. Surgical services are following. Nasogastric tube has been placed and subsequently removed. Tolerating a liquid diet. Altered mental status secondary to above, acute metabolic toxic encephalopathy, improved Acute diastolic congestive heart failure Acute on chronic kidney disease Acute metabolic alkalosis secondary to diuretics Moderate severe pulmonary hypertension Moderate severe mitral regurgitation History of mild COPD Chronic atrial fibrillation History of colonic polyps Type 2 diabetes with diabetic nephropathy History of CVA without any residual deficit Plan: The patient was seen and evaluated Medications reviewed Abdominal discomfort improved Nasogastric tube removed Operating a liquid diet Continue antibiotics Stable and on room air We will continue to follow I have personally seen and examined the patient, performed the documentation and the assessment and plan as written. Number of minutes spent on the visit: 10.
[2022-11-26 13:52] LABS: African American GFR (CKD) 38 (>60 ml/min/1.73 sqM); Anion Gap 6 mmol/L; Blood Urea Nitrogen 45 mg/dL (9-20); Calcium 6.9 mg/dL (8.4-10.2); Carbon Dioxide 26 mmol/L (22-30); Chloride 92 mmol/L (98-107); Glucose 204 mg/dL (74-99); Non-African American GFR(CKD) 33 (>60 ml/min/1.73 sqM); Potassium 3.6 mmol/L (3.5-5.1); Sodium 124 mmol/L (137-145)
[2022-11-26 16:38] LABS: Glucose,Whole Blood 303 mg/dL (70-110)
[2022-11-26 20:27] LABS: Glucose,Whole Blood 290 mg/dL (70-110)
[2022-11-26] MEDS: LACTULOSE 20 GM/30 ML CUP PO SCH (20:55)
[2022-11-26] MEDS: TAMSULOSIN 0.4 MG CAP.ER.24H PO SCH (20:56)
[2022-11-26] MEDS: LATANOPROST 0.005% OPHTH DROPS 2.5 ML BTL BOTH EYES SCH (20:56)
[2022-11-26] MEDS: DORZOLAMIDE-TIMOLOL 2.23%/0.68 10ML BTL BOTH EYES SCH (20:56)
--- NOTE | 2022-11-26 21:14 | P.PN ---
Subjective This is a pleasant 82 years old male with multiple medical problems including history of heart failure presents with worsening dyspnea and leg swelling on and he was found with fluid overload secondary to diastolic CHF, echocardiogram from 09/2022 showing ejection fraction 55%. Currently clinical support associate signed off the case and patient being monitored closely by nephrology team. He remains on Lasix drip 10 mg/h, creatinine 1.4, 1.6 and 2.1. Discuss case with nephrology team who recommended to keep the Lasix drip for now. Pulmonary team on the case for mild COPD exacerbation and currently on a prednisone 40 mg. Hemoglobin 7.8. 11/17/2022 patient CHF and fluid overload improving, his oxygen saturation is acceptable and wants only with minimal crepitation mainly on the right side however he still have 2+ leg edema. However patient developed more alkalosis therefore Lasix drip was stopped and started on torsemide while the dose for Zaroxolyn was lowered to 2.5 mg. Creatinine is stable at 2.0 compared to 1.4 on admission. However patient become more confused today most likely secondary to metabolic encephalopathy and toxic encephalopathy. No recent fall. Patient fell about 3 days ago at that time CT of the brain was negative. Workup showing ammonia level is high at 255 and lactulose is added. We will continue neuro check and consider repeat CT of the brain condition worsens Pressure applied with sponge gel to bleeding superficial ulcer on the right forearm. 11/18/2022 Patient still confused and sleepy this morning from yesterday he got worse significantly. There is no new symptoms, he slipped with the And tachycardic. He had low-grade temperature of 99.8. Leukocytosis worsened 10.5 up to 17,000. Chest x-ray and urinalysis were repeated they were negative for acute process. Risks of flaps looks stable. Creatinine 1.9 which is a stable but higher than baseline because he was on Lasix drip. The sixth rib. Now, torsemide is only once daily. Also patient started on normal saline 75 mL/h Patient continued on prednisone 40 mg once a Eliquis area We will send blood culture and check liver ultrasound as liver enzymes and bilirubin only mildly elevated although this is not very new. Plan discussed with staff and bedside nurse more than once. 11/19/2022 Patient slightly improving regarding his mentation, he still confused sleepy and does not respond to verbal or tactile stimuli but he opens his eyes from moving in bed to some degree which she was not doing its yesterday. His ammonia level is elevated yesterday to 55 and liver ultrasound showing possible liver cirrhosis which is most likely related to alcoholic liver cirrhosis. GI team. He is started on lactulose and ammonia level improved and 48. Also he remains on normal saline at 50 mL/h, alert from 75 mm/h for acute kidney injury and metabolic abnormalities including contraction alkalosis. Check labs tomorrow 11/20/2022 Patient is more awake and interactive significantly better than yesterday and he can answer some questions but still confused and not quite back to his baseline. However patient denies any pain or specific symptoms. He has frequent bowel movements. GI team on the case for his hepatic encephalopathy and his lactulose dose was increased to 30 mg 3 times a day and rifaximin is added. Sodium 148 and patient started on D5 W Creatinine improving down to 1.6. Patient remains on prednisone 40 mg 11/21/2022 Patient today sitting up in bed with sitter at bedside for safety, patient still little confused to the surrounding but improved compared to yesterday. Patient is not eating well he starts complaining from abdominal pain and tenderness today,(yesterday his abdomen was not tender on exam) on exam he had distention and tenderness periumbilical area, computed tomography scan of the abdomen and pelvis was obtained showing gas appendix suspicious for appendicitis and dilated bowel with no transitions zone suspicious for ileus. Patient hemodynamically stable and is afebrile, tachycardia improved. Ammonia improved to baseline yesterday. Creatinine is stable and improved down to 1.6. Hemoglobin is stable at 8.1 and he has mild leukocytosis. Patient was started on Zosyn with surgery to consult I discussed the case with Gen. surgery evaluated the patient 11/22/2022 Patient today still tired and lethargic. But he wakes up and talk to family and at bedside and mentation improved since she started on lactulose. However he developed ileus and abdominal tenderness yesterday and there was suspicion of gas and the appendix suspicious for acute appendicitis, I discussed the case with surgery team and Dr. Begum we are not sure if this is a case of acute appendicitis however it is not entirely excluded or abdominal sepsis especially in view of his abdominal tenderness ileus and abdominal distention. Patient is not able to eat. NG tube was placed in the morning but no output. His labs showing worsening leukocytosis up to 23,000, hemoglobin slightly less 7.5, platelets slightly less at 70 3K, creatinine is slightly up 1.7. Because of this was started on Zosyn yesterday for covering gram-negative and an aerobic microorganisms and we are going to add Levaquin intravenously for better gram-negative coverage given his worsening situation area Of note ammonia level down to 11 and sodium level improved to normal at 136 today. He is hemodynamically stable and afebrile. He was started on normal saline 50 mL/h. Also continued on prednisone 40 mg, rifaximin 550 mg which is another antibiotic. He is still on lactulose 30 g and breathing treatment I talked to the at bedside that's is a very good surgical candidate if surgical intervention is warranted given his a newly diagnosed liver cirrhosis and decompensated liver function Avalide verbalized understanding and acceptance this information. Also she understands that his prognosis is very guarded. Patient is high-risk for deterioration despite treatment. And I told the even if his 5 this episode given his multiple progressive problems with the complication make his long-term prognosis poor as well. She verbalized u nderstanding and acceptance. Currently patient already no good Diuretics are held Alk phos was held Discussed with staff 11/23/2022 patient today showed drastic improvement in his mentation that his back to baseline fully awake and oriented, still feels tired overall and g enerally He still have NG tube in a Place and hemocculted up twice to has to be inserted, draining dark brown discharge. About 100 mL in the bag. Abdominal distention also less abdominal tenderness is the severe compared to yesterday He had some very small bowel movement. But they denies chest pain or dyspnea He remains on D5W at 50 mL/h. Also remains on antibiotic with Zosyn and rifaximin, home dose of all liquids, prednisone 40 mg and lactulose 11/24/2022 Since yesterday's mentation is starts improving and today he is even more awake and alert back to baseline as per at bedside. NG tube in place with dark aspirate, less than 100 mL he ended bag. No abdominal pain or tenderness, abdominal distention is improved. He had several bowel movements. Creatinine is stable at 1.8. Platelets 94, hemoglobin same as 7.5, and WBC trending down to 19,000. He remains on Lovenox 60 mg, prednisone 40 mg, Lasix was discontinued several days ago and currently is on fluid restriction 11/25/2022 Patient sitting in bed comfortable, mentation is at baseline, at bedside which confirms this. Patient abdominal distention is improving. He had NG tube which is taken TODAY by mistake, however with improvement with abdominal distention and abdominal pain patient is a started on liquid diet today. Kidney function improved down to 1.7, sodium 140, patient remains on D5W at 50 mL per hour. Low potassium 2.9. And replace per protocol and follow closely. Patient is having 4-5 bowel movements which helped him regarding his hepatic encephalopathy with his improved Patient also remains on a prednisone 40 mg COPD exacerbation. Yulia is in hold and currently is taking Lovenox therapeutic dose. Today I discussed medical problems and plan with the patient and at bedside and all questions answered to her satisfaction. We will lower his prednisone to 30 mg daily from tomorrow, he was taken. There is a 40 mg more than a week 11/26/2022 Patient is doing well today, his pleasant relaxed comfortable sitting in chair with no complaint. Denies any complaints stating that he is back to baseline creatinine is mentation. No chest pain abdominal pain no vomiting. No urinary complaints. He is hemodynamically stable possible trial on room air Labs also stable, he has stopped leukocytosis of 20,000 but this is thought secondary to steroid effect and is stable. No fever or other signs of infection. Already patient received antibiotics and currently he is asymptomatic. Hemoglobin is stable at 7.6 and we change his Lovenox back to his home dose of leg was 2.5 mg twice a day. Platelets also stable at 91,000. Creatinine is stable at 1.8. Patient is having regular bowel movement about 2-4 each day as he told me. No abdominal pain. He Liquid Diet and Advanced a 2 Regular Diet. And If He Tolerates That Well He Would Be Considered for Discharge Tomorrow Physical Therapist Evaluated Him Today and the Recommended Home with Home Care. Patient Remains on D5W Today. Lactulose 30 Mg Twice a Day. Tomorrow Last Dose of Zosyn and What May Be Changed to Augmentin upon Discharge. And He Is on Prednisone 30 Mg Which Will Be Tapered upon Discharge As Well Possible Discharge in 24-48 Hours Long-Term Prognosis Remains Guarded Given Complex Hospital Course, Multiple Complex Medical Problems and Age. Objective - Vital Signs Vital signs: Vital Signs Temp 97.7 F 11/26/22 11:43 Pulse 72 11/26/22 12:57 Resp 18 11/26/22 11:43 BP 107/55 11/26/22 11:43 Pulse Ox 97 11/26/22 11:43 FiO2 28 11/17/22 08:36 Intake & Output 11/25/22 11/26/22 11/26/22 18:59 06:59 18:59 Intake Total 240 Output Total 300 Balance -300 240 Weight 82.9 kg Intake: Oral 240 Output: Urine 300 Other: Voiding Method Indwelling Catheter Indwelling Catheter Indwelling Catheter # Bowel Movements 1 1 - Exam GENERAL: The patient is drowsy and tired, not in any acute distress. Well developed, well nourished. HEENT: Pupils are round and equally reacting to light. EOMI. No scleral icterus. No conjunctival pallor. Normocephalic, atraumatic. No pharyngeal erythema. No thyromegaly. CARDIOVASCULAR: S1 and S2 present. No murmurs, rubs, or gallops. -PULMONARY: Chest is clear to auscultation, no wheezing , bilateral basal crackles. -ABDOMEN: Tense, generalized abdominal tenderness, no rebound tenderness or guar ding, distended, mildly normoactive bowel sounds. No palpable organomegaly. NG tube in place with no significant output MUSCULOSKELETAL: No joint swelling or deformity. -EXTREMITIES: No cyanosis, clubbing, patient has bilateral pitting leg edema. NEUROLOGICAL: Gross neurological examination did not reveal any focal deficits. SKIN: No rashes. no petechiae. 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 Recent CT of the brain is negative Acute diastolic CHF, currently patient got more contraction Acute kidney injury on chronic kidney disease stage III Acute metabolic alkalosis, possibly exacerbated by contraction alkalosis. moderate to severe mitral regurgitation Severe pulmonary hypertension Mild COPD exacerbation Chronic atrial fibrillation Plan: Advance diet to regular per surgery team, if tolerates diet patient may be considered for discharge tomorrow continue with Zosyn. Continue with gentle hydration currently on D5 W. Pain management, Continue with lactulose, ammonia is back to reference range . Appreciate GI input Patient currently on torsemide on small dose of Zaroxolyn, smaller dose continue with the prednisone 30 mg [employer] Administrator in of the case. GI team on the case (both GI and nephrology cleared the patient for discharge) cartilage team already sign off. Pulmonary team on the case and currently on a prednisone 40 mg (pulmonary service signed off the case today 11/21) Monitor her mentation Labs and medication were reviewed.. Continue same treatment. Continue with sym ptomatic treatment. Resume home medication. Monitor labs and vitals. DVT and GI prophylaxis. Further recommendations as per clinical course of the patient DVT prophylaxis: Eliquis which was held In case he would need surgery, we don't put him on Lovenox 60 mg twice daily as patient is an chronic atrial fibrillation GI prophylaxis: Protonix PT/OT Deferred No code Prognosis is guarded. Patient is high-risk for decompensation or complication. Long-term prognosis is also guarded. Patient high risk for readmission
[2022-11-26 21:48] LABS: Anisocytosis Moderate; HCT 21.4 % (39.0-53.0); Hypochromasia Slight; MCHC 33.3 g/dL (31.0-37.0); MCV 114.2 fL (80.0-100.0); Macrocytosis Marked; Mean Platelet Volume 12.4; RBC 1.88 m/uL (4.30-5.90); RDW 21.1 % (11.5-15.5); WBC 19.1 k/uL (3.8-10.6)
[2022-11-26 21:53] LABS: HGB 7.1 gm/dL (13.0-17.5); Platelet Count 78 k/uL (150-450)
[2022-11-27] MEDS: APIXABAN 2.5 MG TABLET PO SCH ×3 (01:25→21:09)
[2022-11-27] MEDS: PIPERACILLIN-TAZOBACTAM 3.375 GM in SODIUM CHLORIDE 0.9% 100 ML IVPB SCH ×4 (01:26→23:30)
[2022-11-27] MEDS: PANTOPRAZOLE 40 MG TABLET PO SCH (06:21)
[2022-11-27] MEDS: INSULIN ASPART (NovoLOG) 100 UNIT/ML VIAL SQ SCH ×4 (06:21→21:14)
[2022-11-27 06:22] LABS: Glucose,Whole Blood 152 mg/dL (70-110)
[2022-11-27] MEDS: BUDESONIDE 0.5 MG/2 ML NEBU INHALATION SCH ×2 (07:48→20:47)
[2022-11-27] MEDS: IPRATROPIUM-ALBUTEROL 3 ML NEB INHALATION SCH ×3 (07:48→20:47)
[2022-11-27] MEDS: ATORVASTATIN 40 MG TAB PO SCH (09:13)
[2022-11-27] MEDS: FERROUS SULFATE 325 MG TAB PO SCH (09:13)
[2022-11-27] MEDS: MULTIVITAMINS, THERA 1 EACH TAB PO SCH (09:13)
[2022-11-27] MEDS: THIAMINE 100 MG/ML 2 ML VIAL IVP SCH (09:14)
[2022-11-27] MEDS: LACTULOSE 20 GM/30 ML CUP PO SCH ×2 (09:14→21:09)
[2022-11-27] MEDS: predniSONE 10 MG TAB PO SCH (09:14)
[2022-11-27] MEDS: POTASSIUM CHLORIDE ER 20 MEQ TAB.ER PO SCH (09:14)
--- NOTE | 2022-11-27 09:35 | P.PN ---
Subjective Progress Note Date: 11/27/22 Principal diagnosis: Ileus Patient resting in bed. Says he feels fine. He is tolerating his diet. No nausea or vomiting. Denies bloating. Objective - Vital Signs Vital signs: Vital Signs Temp 97.8 F 11/27/22 04:00 Pulse 76 11/27/22 08:05 Resp 18 11/27/22 04:00 BP 117/64 11/27/22 04:00 Pulse Ox 98 11/27/22 07:48 FiO2 28 11/17/22 08:36 Intake & Output 11/26/22 11/27/22 11/27/22 18:59 06:59 18:59 Intake Total 240 600 Output Total 400 425 Balance -160 -425 600 Weight 82.9 kg Intake: Oral 240 600 Output: Urine 400 425 Other: Voiding Method Indwelling Catheter Indwelling Catheter # Bowel Movements 1 1 - Exam Abdomen soft, mild distention, nontender - Labs CBC & Chem 7: 11/26/22 21:33 11/26/22 12:51 Labs: Abnormal Lab Results - Last 24 Hours (Table) 11/26/22 11/26/22 11/26/22 Range/Units 11:14 12:51 16:35 WBC (3.8-10.6) k/uL RBC (4.30-5.90) m/uL Hgb (13.0-17.5) gm/dL Hct (39.0-53.0) % MCV (80.0-100.0) fL MCH (25.0-35.0) pg RDW (11.5-15.5) % Plt Count (150-450) k/uL Macrocytosis Sodium 124 L (137-145) mmol/L Chloride 92 L (98-107) mmol/L BUN 45 H (9-20) mg/dL Creatinine 1.87 H (0.66-1.25) mg/dL Glucose 204 H (74-99) mg/dL POC Glucose (mg/dL) 174 H 303 H (70-110) mg/dL Calcium 6.9 L (8.4-10.2) mg/dL 11/26/22 11/26/22 11/27/22 Range/Units 20:26 21:33 06:19 WBC 19.1 H (3.8-10.6) k/uL RBC 1.88 L (4.30-5.90) m/uL Hgb 7.1 L (13.0-17.5) gm/dL Hct 21.4 L (39.0-53.0) % MCV 114.2 H (80.0-100.0) fL MCH 38.0 H (25.0-35.0) pg RDW 21.1 H (11.5-15.5) % Plt Count 78 L (150-450) k/uL Macrocytosis Marked A Sodium (137-145) mmol/L Chloride (98-107) mmol/L BUN (9-20) mg/dL Creatinine (0.66-1.25) mg/dL Glucose (74-99) mg/dL POC Glucose (mg/dL) 290 H 152 H (70-110) mg/dL Calcium (8.4-10.2) mg/dL Assessment and Plan (1) Ileus Narrative/Plan: Patient doing about the same clinically. He may be slightly more distended on exam. Patient says he feels the same and denies nausea or vomiting. He did have a bowel movement. He would like to go home. Await repeat labs. Current Visit: Yes Status: Acute Code(s): K56.7 - ILEUS, UNSPECIFIED SNOMED Code(s): 492030612
[2022-11-27 09:38] LABS: Anisocytosis Moderate; HCT 21.4 % (39.0-53.0); HGB 7.2 gm/dL (13.0-17.5); Hypochromasia Slight; MCH 38.3 pg (25.0-35.0); MCHC 33.6 g/dL (31.0-37.0); Macrocytosis Marked; Mean Platelet Volume 11.7; RBC 1.88 m/uL (4.30-5.90); RDW 21.5 % (11.5-15.5); WBC 19.8 k/uL (3.8-10.6)
[2022-11-27 10:04] LABS: Platelet Count 72 k/uL (150-450)
[2022-11-27 10:09] LABS: African American GFR (CKD) 33 (>60 ml/min/1.73 sqM); Anion Gap 4 mmol/L; Blood Urea Nitrogen 52 mg/dL (9-20); Calcium 7.1 mg/dL (8.4-10.2); Carbon Dioxide 26 mmol/L (22-30); Chloride 92 mmol/L (98-107); Glucose 211 mg/dL (74-99); Non-African American GFR(CKD) 29 (>60 ml/min/1.73 sqM); Potassium 4.1 mmol/L (3.5-5.1); Sodium 122 mmol/L (137-145)
[2022-11-27 10:39] LABS: Band Neutrophils % 3 %; Eosinophils # (M) 0.99 k/uL (0-0.7); Lymphocytes # (M) 1.19 k/uL (1.0-4.8); Monocytes # (M) 1.19 k/uL (0-1.0); Neutrophils % (M) 80 %; Nucleated Red Blood Cells 0 /100 WBC (0-0); Total Cells Counted 100
[2022-11-27 10:40] LABS: Polychromasia Present
[2022-11-27] MEDS ORDERED: SODIUM CHLORIDE TAB 1 GM TAB PO STA (11:06)
--- NOTE | 2022-11-27 11:06 | P.PN ---
Subjective Patient is seen for follow-up for acute kidney injury. Currently off of diuretics and maintained on IV fluids. Good UOP Serum creatinine at 1.7- 1.9 mg/dL Sodium had dropped to 124 yesterday. D5W was discontinued. Patient is tolerating oral intake. He wants to go home. Serum sodium this morning was 122. Ruiz catheter has been removed Objective - Vital Signs Vital signs: Vital Signs Temp 98.1 F 11/27/22 08:00 Pulse 76 11/27/22 08:05 Resp 16 11/27/22 08:00 BP 114/58 11/27/22 08:00 Pulse Ox 98 11/27/22 08:00 FiO2 28 11/17/22 08:36 Intake & Output 11/26/22 11/27/22 11/27/22 18:59 06:59 18:59 Intake Total 240 600 Output Total 400 425 1 Balance -160 -425 599 Weight 82.9 kg Intake: Oral 240 600 Output: Urine 400 425 Stool 1 Other: Voiding Method Indwelling Catheter Indwelling Catheter Indwelling Catheter # Bowel Movements 1 1 - Exam Patient is awake. Sitting up in bed. Able to communicate. Mentation at baseline Alert oriented 3 Examination of the heart S1 and S2 Examination of the lungs bilateral breath sounds are heard Abdomen is soft nontender Examination lower extremities shows no significant edema - Labs CBC & Chem 7: 11/27/22 09:19 11/27/22 09:19 Labs: Abnormal Lab Results - Last 24 Hours (Table) 11/26/22 11/26/22 11/26/22 Range/Units 11:14 12:51 16:35 WBC (3.8-10.6) k/uL RBC (4.30-5.90) m/uL Hgb (13.0-17.5) gm/dL Hct (39.0-53.0) % MCV (80.0-100.0) fL MCH (25.0-35.0) pg RDW (11.5-15.5) % Plt Count (150-450) k/uL Neutrophils # (Manual) (1.3-7.7) k/uL Monocytes # (Manual) (0-1.0) k/uL Eosinophils # (Manual) (0-0.7) k/uL Macrocytosis Sodium 124 L (137-145) mmol/L Chloride 92 L (98-107) mmol/L BUN 45 H (9-20) mg/dL Creatinine 1.87 H (0.66-1.25) mg/dL Glucose 204 H (74-99) mg/dL POC Glucose (mg/dL) 174 H 303 H (70-110) mg/dL Calcium 6.9 L (8.4-10.2) mg/dL 11/26/22 11/26/22 11/27/22 Range/Units 20:26 21:33 06:19 WBC 19.1 H (3.8-10.6) k/uL RBC 1.88 L (4.30-5.90) m/uL Hgb 7.1 L (13.0-17.5) gm/dL Hct 21.4 L (39.0-53.0) % MCV 114.2 H (80.0-100.0) fL MCH 38.0 H (25.0-35.0) pg RDW 21.1 H (11.5-15.5) % Plt Count 78 L (150-450) k/uL Neutrophils # (Manual) (1.3-7.7) k/uL Monocytes # (Manual) (0-1.0) k/uL Eosinophils # (Manual) (0-0.7) k/uL Macrocytosis Marked A Sodium (137-145) mmol/L Chloride (98-107) mmol/L BUN (9-20) mg/dL Creatinine (0.66-1.25) mg/dL Glucose (74-99) mg/dL POC Glucose (mg/dL) 290 H 152 H (70-110) mg/dL Calcium (8.4-10.2) mg/dL 11/27/22 11/27/22 Range/Units 09:19 09:19 WBC 19.8 H (3.8-10.6) k/uL RBC 1.88 L (4.30-5.90) m/uL Hgb 7.2 L (13.0-17.5) gm/dL Hct 21.4 L (39.0-53.0) % MCV 114.0 H (80.0-100.0) fL MCH 38.3 H (25.0-35.0) pg RDW 21.5 H (11.5-15.5) % Plt Count 72 L (150-450) k/uL Neutrophils # (Manual) 16.40 H (1.3-7.7) k/uL Monocytes # (Manual) 1.19 H (0-1.0) k/uL Eosinophils # (Manual) 0.99 H (0-0.7) k/uL Macrocytosis Marked A Sodium 122 L (137-145) mmol/L Chloride 92 L (98-107) mmol/L BUN 52 H (9-20) mg/dL Creatinine 2.08 H (0.66-1.25) mg/dL Glucose 211 H (74-99) mg/dL POC Glucose (mg/dL) (70-110) mg/dL Calcium 7.1 L (8.4-10.2) mg/dL Assessment and Plan Assessment: 1. Acute kidney injury cardiorenal, status post diuretics, restarted IV fluids. UA is benign. Renal function improved. Serum creatinine staying at about 1.7 mg/dL 2. Chronic kidney disease NKF stage III a secondary to nephrosclerosis with baseline creatinine 1.2-1.3 mg/dL 3. Severe pulmonary hypertension with moderate to severe mitral regurgitation and chronic lower extremity edema 4. Acute on chronic CHF with preserved ejection fraction 5. Coronary artery disease with history of previous coronary stenting 6. Metabolic alkalosis secondary to diuresis, improved with hydration. 7. Hypernatremia associated with free water deficit. Status post D5W 8. Ileus with NG tube, being followed by surgery. NG tube is out 9. Hypokalemia associated with GI fluid loss, currently being replaced 10. Hyponatremia after correction of hypernatremia. D5W has been discontinued. I will give 1 dose of sodium chloride tab Plan: Sodium chloride tab 1 g 1. Recheck serum sodium at 4 PM Monitor for urine retention. If sodium improves above 127 patient could be discharged and follow-up in the office in one week. Repeat labs to be done in 1-2 days post discharge.
[2022-11-27 11:38] LABS: Glucose,Whole Blood 256 mg/dL (70-110)
--- NOTE | 2022-11-27 12:10 | P.PN ---
Subjective Progress Note Date: 11/27/22 Principal diagnosis: Pulmonary edema. The patient is seen today 11/22/2022 in follow-up on the selective care unit. He is currently awake and alert. Maintaining O2 saturations in the upper 90s on 4 L/m per nasal cannula. He's been afebrile. Hemodynamically stable. Computed tomography scan of the abdomen and pelvis revealed a dilated appendix with gas within the tip. There is some nonspecific surrounding fluid/stranding. Findings could be seen with acute appendicitis. Gas and stool filled dilated colon and rectum without focal transition point suggestive of an colonic ileus. 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 Hepatic cirrhosis with findings suggestive of portal hypertension with trace ascites and splenic collaterals. Right adrenal gland lipid rich adenoma. Nonobstructive bilateral renal calculi. Surgical services are following. Nasogastric tube has been placed. Today's chest x-ray reveals cardiomegaly. Chronic parenchymal changes without new focal airspace opacity, pleural effusion or pneumothorax. Blood cultures revealed no growth. White count 23.9. Hemoglobin 7.5. MCV is 122. Platelet count 73,000. Sodium 136. Potassium 3.1. Bicarb 30. BUN 59. Creatinine 1.74. Glucose 337. He is continued on DuoNeb inhalations, Pulmicort inhalations, prednisone taper. She is on Xifaxan, Zosyn, Levaquin. Lovenox for anticoagulation. The patient is seen today 11/23/2022 in follow-up on the selective care unit. He is awake, alert, oriented. Resting fairly comfortably in bed. Denies any worsening shortness of breath, cough or congestion. Denies any significant abdominal pain. Nasogastric tube remains in place. Chest x-ray reveals cardiomegaly. Chronic parenchymal changes without any new focal airspace opacities, pleural effusion or pneumothorax. He is maintaining good O2 saturations in the upper 90s on 2 L/m per nasal cannula. He is afebrile. Hemodynamically stable. White count 19.6. Hemoglobin 7.5. Platelets 94,000. Sodium 146. Potassium 2.9. Bicarb 33. BUN 65. Creatinine 1.94. Glucose 137. He remains on rifaximin and Zosyn. Continued on bronchodilators. Patient is seen today 11/24/2022 in follow-up on the selective care unit. He is resting comfortably in bed. He remains awake, alert, oriented. His is at the bedside. He is having bowel movements. Nasogastric tube remains in place. Blood cultures revealed no growth. Blood sugar 156. He is continued on DuoNeb inhalations. Prednisone taper. Remains on Zosyn. Remains on rifaximin. Anticoagulated with Lovenox. Continued on D5W at 50 MLS per hour. The patient is seen today 11/26/2022 in follow-up on the selective care unit. He remains awake and alert oriented. His is at the bedside. He is resting comfortably in bed. He is having bowel movements. Nasogastric tube has been discontinued. He is tolerating a liquid diet. Denies any abdominal discomfort. No nausea or vomiting. Blood cultures revealed no growth in blood glucose 174. He remains on DuoNeb inhalations, Pulmicort inhalations. Prednisone taper. Antibiotics in the form of Zosyn. Lovenox for anticoagulation. Progress note dated 11/27/2022. The patient is seen today in room 372. The patient apparently will not be discharged today, because his hemoglobin was 7.2, and his sodium was 122. The patient's on room air. The patient is not receiving any IV fluids. Clinically, the patient looks very safe, and could be discharged home from the pulmonary standpoint. White count is 19.8, hemoglobin 7.2, hematocrit 21.4, and platelet count of 72,000. Sodium is 122, potassium 4.1, chlorides 92, CO2 26, BUN 52, and creatinine 2.08. Blood cultures are negative. Objective - Vital Signs Vital signs: Vital Signs Temp 98.1 F 11/27/22 08:00 Pulse 76 11/27/22 11:50 Resp 16 11/27/22 08:00 BP 114/58 11/27/22 08:00 Pulse Ox 98 11/27/22 08:00 FiO2 28 11/17/22 08:36 Intake & Output 11/26/22 11/27/22 11/27/22 18:59 06:59 18:59 Intake Total 240 600 Output Total 400 425 1 Balance -160 -425 599 Weight 82.9 kg Intake: Oral 240 600 Output: Urine 400 425 Stool 1 Other: Voiding Method Indwelling Catheter Indwelling Catheter Indwelling Catheter # Bowel Movements 1 1 - Exam No acute distress, oriented 3. HEENT examination is grossly unremarkable. Neck supple. Full range of motion. No adenopathy thyromegaly or neck vein distention. Cardiovascular examination reveals regular rhythm rate. S1-S2 normal. No S3 or S4. No discernible murmur noted. Heart rate 76 bpm. Lungs reveal clear breath sounds. Breath sounds are equal bilaterally. No adventitious lung sounds including wheezes rhonchi or crackles. Room air saturation is 98%. Abdomen soft bowel sounds are heard. No masses or tenderness. Extremities are intact. No cyanosis clubbing or edema. Skin is without rash or lesion. Neurologic examination is brief but nonfocal. - Labs CBC & Chem 7: 11/27/22 09:19 11/27/22 09:19 Labs: Abnormal Lab Results - Last 24 Hours (Table) 11/26/22 11/26/22 11/26/22 Range/Units 12:51 16:35 20:26 WBC (3.8-10.6) k/uL RBC (4.30-5.90) m/uL Hgb (13.0-17.5) gm/dL Hct (39.0-53.0) % MCV (80.0-100.0) fL MCH (25.0-35.0) pg RDW (11.5-15.5) % Plt Count (150-450) k/uL Neutrophils # (Manual) (1.3-7.7) k/uL Monocytes # (Manual) (0-1.0) k/uL Eosinophils # (Manual) (0-0.7) k/uL Macrocytosis Sodium 124 L (137-145) mmol/L Chloride 92 L (98-107) mmol/L BUN 45 H (9-20) mg/dL Creatinine 1.87 H (0.66-1.25) mg/dL Glucose 204 H (74-99) mg/dL POC Glucose (mg/dL) 303 H 290 H (70-110) mg/dL Calcium 6.9 L (8.4-10.2) mg/dL 11/26/22 11/27/22 11/27/22 Range/Units 21:33 06:19 09:19 WBC 19.1 H 19.8 H (3.8-10.6) k/uL RBC 1.88 L 1.88 L (4.30-5.90) m/uL Hgb 7.1 L 7.2 L (13.0-17.5) gm/dL Hct 21.4 L 21.4 L (39.0-53.0) % MCV 114.2 H 114.0 H (80.0-100.0) fL MCH 38.0 H 38.3 H (25.0-35.0) pg RDW 21.1 H 21.5 H (11.5-15.5) % Plt Count 78 L 72 L (150-450) k/uL Neutrophils # (Manual) 16.40 H (1.3-7.7) k/uL Monocytes # (Manual) 1.19 H (0-1.0) k/uL Eosinophils # (Manual) 0.99 H (0-0.7) k/uL Macrocytosis Marked A Marked A Sodium (137-145) mmol/L Chloride (98-107) mmol/L BUN (9-20) mg/dL Creatinine (0.66-1.25) mg/dL Glucose (74-99) mg/dL POC Glucose (mg/dL) 152 H (70-110) mg/dL Calcium (8.4-10.2) mg/dL 11/27/22 11/27/22 Range/Units 09:19 11:37 WBC (3.8-10.6) k/uL RBC (4.30-5.90) m/uL Hgb (13.0-17.5) gm/dL Hct (39.0-53.0) % MCV (80.0-100.0) fL MCH (25.0-35.0) pg RDW (11.5-15.5) % Plt Count (150-450) k/uL Neutrophils # (Manual) (1.3-7.7) k/uL Monocytes # (Manual) (0-1.0) k/uL Eosinophils # (Manual) (0-0.7) k/uL Macrocytosis Sodium 122 L (137-145) mmol/L Chloride 92 L (98-107) mmol/L BUN 52 H (9-20) mg/dL Creatinine 2.08 H (0.66-1.25) mg/dL Glucose 211 H (74-99) mg/dL POC Glucose (mg/dL) 256 H (70-110) mg/dL Calcium 7.1 L (8.4-10.2) mg/dL Assessment and Plan Assessment: Acute hepatic encephalopathy, suspect liver cirrhosis secondary to remote alcohol abuse. Computed tomography scan of the abdomen and pelvis revealed a dilated appendix with gas within the tip. There is some nonspecific surrounding fluid/stranding. Findings could be seen with acute appendicitis. Gas and stool filled dilated colon and rectum without focal transition point suggestive of an colonic ileus. 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 Hepatic cirrhosis with findings suggestive of portal hypertension with trace ascites and splenic collaterals. Right adrenal gland lipid rich adenoma. Nonobstructive bilateral renal calculi. Surgical services are following. Nasogastric tube has been placed and subsequently removed. Tolerating a liquid diet. Altered mental status secondary to above, acute metabolic toxic encephalopathy, improved. Acute diastolic congestive heart failure. Acute on chronic kidney disease. Acute metabolic alkalosis secondary to diuretics. Moderate severe pulmonary hypertension. Moderate severe mitral regurgitation. History of mild COPD. Chronic atrial fibrillation. History of colonic polyps. Type 2 diabetes with diabetic nephropathy. History of CVA without any residual deficit. Plan: Plan dated 11/27/2022. The patient's overall pulmonary status is very stable. He's on room air. NG tube is been removed. The patient could be considered for discharge, but tells me he has not been discharged because his hemoglobin is only 7.2, sodium is 122. Those will be repeated. Clinically he is very stable. Labs, x-rays, and medications are reviewed. The patient does continue on Zosyn. Prognosis is guarded. The patient is a DO NOT RESUSCITATE patient. Time with Patient: Less than 30
[2022-11-27] MEDS: guaiFENesin-DM 100-10MG/5ML 10 ML CUP PO PRN ×2 (12:59→21:09)
[2022-11-27 16:49] LABS: Glucose,Whole Blood 239 mg/dL (70-110)
[2022-11-27 19:55] LABS: Glucose,Whole Blood 252 mg/dL (70-110)
[2022-11-27] MEDS: TAMSULOSIN 0.4 MG CAP.ER.24H PO SCH (21:09)
[2022-11-27] MEDS: LATANOPROST 0.005% OPHTH DROPS 2.5 ML BTL BOTH EYES SCH (21:15)
[2022-11-27] MEDS: DORZOLAMIDE-TIMOLOL 2.23%/0.68 10ML BTL BOTH EYES SCH (21:15)
[2022-11-28 06:00] LABS: Glucose,Whole Blood 216 mg/dL (70-110)
[2022-11-28] MEDS: PANTOPRAZOLE 40 MG TABLET PO SCH (06:19)
[2022-11-28] MEDS: INSULIN ASPART (NovoLOG) 100 UNIT/ML VIAL SQ SCH ×4 (06:19→20:14)
--- NOTE | 2022-11-28 07:57 | P.PN ---
Subjective This is a pleasant 82 years old male with multiple medical problems including history of heart failure presents with worsening dyspnea and leg swelling on and he was found with fluid overload secondary to diastolic CHF, echocardiogram from 09/2022 showing ejection fraction 55%. Currently agricultural extension agent signed off the case and patient being monitored closely by nephrology team. He remains on Lasix drip 10 mg/h, creatinine 1.4, 1.6 and 2.1. Discuss case with nephrology team who recommended to keep the Lasix drip for now. Pulmonary team on the case for mild COPD exacerbation and currently on a prednisone 40 mg. Hemoglobin 7.8. 11/17/2022 patient CHF and fluid overload improving, his oxygen saturation is acceptable and wants only with minimal crepitation mainly on the right side however he still have 2+ leg edema. However patient developed more alkalosis therefore Lasix drip was stopped and started on torsemide while the dose for Zaroxolyn was lowered to 2.5 mg. Creatinine is stable at 2.0 compared to 1.4 on admission. However patient become more confused today most likely secondary to metabolic encephalopathy and toxic encephalopathy. No recent fall. Patient fell about 3 days ago at that time CT of the brain was negative. Workup showing ammonia level is high at 255 and lactulose is added. We will continue neuro check and consider repeat CT of the brain condition worsens Pressure applied with sponge gel to bleeding superficial ulcer on the right forearm. 11/18/2022 Patient still confused and sleepy this morning from yesterday he got worse significantly. There is no new symptoms, he slipped with the And tachycardic. He had low-grade temperature of 99.8. Leukocytosis worsened 10.5 up to 17,000. Chest x-ray and urinalysis were repeated they were negative for acute process. Risks of flaps looks stable. Creatinine 1.9 which is a stable but higher than baseline because he was on Lasix drip. The sixth rib. Now, torsemide is only once daily. Also patient started on normal saline 75 mL/h Patient continued on prednisone 40 mg once a Eliquis area We will send blood culture and check liver ultrasound as liver enzymes and bilirubin only mildly elevated although this is not very new. Plan discussed with staff and bedside nurse more than once. 11/19/2022 Patient slightly improving regarding his mentation, he still confused sleepy and does not respond to verbal or tactile stimuli but he opens his eyes from moving in bed to some degree which she was not doing its yesterday. His ammonia level is elevated yesterday to 55 and liver ultrasound showing possible liver cirrhosis which is most likely related to alcoholic liver cirrhosis. GI team. He is started on lactulose and ammonia level improved and 48. Also he remains on normal saline at 50 mL/h, alert from 75 mm/h for acute kidney injury and metabolic abnormalities including contraction alkalosis. Check labs tomorrow 11/20/2022 Patient is more awake and interactive significantly better than yesterday and he can answer some questions but still confused and not quite back to his baseline. However patient denies any pain or specific symptoms. He has frequent bowel movements. GI team on the case for his hepatic encephalopathy and his lactulose dose was increased to 30 mg 3 times a day and rifaximin is added. Sodium 148 and patient started on D5 W Creatinine improving down to 1.6. Patient remains on prednisone 40 mg 11/21/2022 Patient today sitting up in bed with sitter at bedside for safety, patient still little confused to the surrounding but improved compared to yesterday. Patient is not eating well he starts complaining from abdominal pain and tenderness today,(yesterday his abdomen was not tender on exam) on exam he had distention and tenderness periumbilical area, computed tomography scan of the abdomen and pelvis was obtained showing gas appendix suspicious for appendicitis and dilated bowel with no transitions zone suspicious for ileus. Patient hemodynamically stable and is afebrile, tachycardia improved. Ammonia improved to baseline yesterday. Creatinine is stable and improved down to 1.6. Hemoglobin is stable at 8.1 and he has mild leukocytosis. Patient was started on Zosyn with surgery to consult I discussed the case with Gen. surgery evaluated the patient 11/22/2022 Patient today still tired and lethargic. But he wakes up and talk to family and at bedside and mentation improved since she started on lactulose. However he developed ileus and abdominal tenderness yesterday and there was suspicion of gas and the appendix suspicious for acute appendicitis, I discussed the case with surgery team and Dr. Begum we are not sure if this is a case of acute appendicitis however it is not entirely excluded or abdominal sepsis especially in view of his abdominal tenderness ileus and abdominal distention. Patient is not able to eat. NG tube was placed in the morning but no output. His labs showing worsening leukocytosis up to 23,000, hemoglobin slightly less 7.5, platelets slightly less at 70 3K, creatinine is slightly up 1.7. Because of this was started on Zosyn yesterday for covering gram-negative and an aerobic microorganisms and we are going to add Levaquin intravenously for better gram-negative coverage given his worsening situation area Of note ammonia level down to 11 and sodium level improved to normal at 136 today. He is hemodynamically stable and afebrile. He was started on normal saline 50 mL/h. Also continued on prednisone 40 mg, rifaximin 550 mg which is another antibiotic. He is still on lactulose 30 g and breathing treatment I talked to the at bedside that's is a very good surgical candidate if surgical intervention is warranted given his a newly diagnosed liver cirrhosis and decompensated liver function Avalide verbalized understanding and acceptance this information. Also she understands that his prognosis is very guarded. Patient is high-risk for deterioration despite treatment. And I told the even if his 5 this episode given his multiple progressive problems with the complication make his long-term prognosis poor as well. She verbalized u nderstanding and acceptance. Currently patient already no good Diuretics are held Alk phos was held Discussed with staff 11/23/2022 patient today showed drastic improvement in his mentation that his back to baseline fully awake and oriented, still feels tired overall and g enerally He still have NG tube in a Place and hemocculted up twice to has to be inserted, draining dark brown discharge. About 100 mL in the bag. Abdominal distention also less abdominal tenderness is the severe compared to yesterday He had some very small bowel movement. But they denies chest pain or dyspnea He remains on D5W at 50 mL/h. Also remains on antibiotic with Zosyn and rifaximin, home dose of all liquids, prednisone 40 mg and lactulose 11/24/2022 Since yesterday's mentation is starts improving and today he is even more awake and alert back to baseline as per at bedside. NG tube in place with dark aspirate, less than 100 mL he ended bag. No abdominal pain or tenderness, abdominal distention is improved. He had several bowel movements. Creatinine is stable at 1.8. Platelets 94, hemoglobin same as 7.5, and WBC trending down to 19,000. He remains on Lovenox 60 mg, prednisone 40 mg, Lasix was discontinued several days ago and currently is on fluid restriction 11/25/2022 Patient sitting in bed comfortable, mentation is at baseline, at bedside which confirms this. Patient abdominal distention is improving. He had NG tube which is taken TODAY by mistake, however with improvement with abdominal distention and abdominal pain patient is a started on liquid diet today. Kidney function improved down to 1.7, sodium 140, patient remains on D5W at 50 mL per hour. Low potassium 2.9. And replace per protocol and follow closely. Patient is having 4-5 bowel movements which helped him regarding his hepatic encephalopathy with his improved Patient also remains on a prednisone 40 mg COPD exacerbation. Yulia is in hold and currently is taking Lovenox therapeutic dose. Today I discussed medical problems and plan with the patient and at bedside and all questions answered to her satisfaction. We will lower his prednisone to 30 mg daily from tomorrow, he was taken. There is a 40 mg more than a week 11/26/2022 Patient is doing well today, his pleasant relaxed comfortable sitting in chair with no complaint. Denies any complaints stating that he is back to baseline creatinine is mentation. No chest pain abdominal pain no vomiting. No urinary complaints. He is hemodynamically stable possible trial on room air Labs also stable, he has stopped leukocytosis of 20,000 but this is thought secondary to steroid effect and is stable. No fever or other signs of infection. Already patient received antibiotics and currently he is asymptomatic. Hemoglobin is stable at 7.6 and we change his Lovenox back to his home dose of leg was 2.5 mg twice a day. Platelets also stable at 91,000. Creatinine is stable at 1.8. Patient is having regular bowel movement about 2-4 each day as he told me. No abdominal pain. He Liquid Diet and Advanced a 2 Regular Diet. And If He Tolerates That Well He Would Be Considered for Discharge Tomorrow Physical Therapist Evaluated Him Today and the Recommended Home with Home Care. Patient Remains on D5W Today. Lactulose 30 Mg Twice a Day. Tomorrow Last Dose of Zosyn and What May Be Changed to Augmentin upon Discharge. And He Is on Prednisone 30 Mg Which Will Be Tapered upon Discharge As Well Possible Discharge in 24-48 Hours Long-Term Prognosis Remains Guarded Given Complex Hospital Course, Multiple Complex Medical Problems and Age. 11/27/2022 Patient clinically significantly improved and he is back to normal costal normal. He denies any specific complaints Bed comfortable. He denies chest pain or dyspnea. He tolerates diet well. NG tube output. No abdominal pain or distention. He has regular bowel movement about 3 per day while he is on lactulose 30 mg twice daily. Prednisone dose IS been tapered Name is on liquids and remains on Zosyn . Patient may be considered for discharge home her sodium today was 122 and we stopped his D5W. Also his hemoglobin 7.1-7.2 STABLE but will close monitoring Physical therapy recommended home with home care Objective - Vital Signs Vital signs: Vital Signs Temp 98.1 F 11/27/22 08:00 Pulse 76 11/27/22 11:50 Resp 16 11/27/22 08:00 BP 114/58 11/27/22 08:00 Pulse Ox 98 11/27/22 08:00 FiO2 28 11/17/22 08:36 Intake & Output 11/26/22 11/27/22 11/27/22 18:59 06:59 18:59 Intake Total 240 600 Output Total 400 425 1 Balance -160 -425 599 Weight 82.9 kg Intake: Oral 240 600 Output: Urine 400 425 Stool 1 Other: Voiding Method Indwelling Catheter Indwelling Catheter Indwelling Catheter # Bowel Movements 1 1 - Exam GENERAL: The patient is drowsy and tired, not in any acute distress. Well developed, well nourished. HEENT: Pupils are round and equally reacting to light. EOMI. No scleral icterus. No conjunctival pallor. Normocephalic, atraumatic. No pharyngeal erythema. No thyromegaly. CARDIOVASCULAR: S1 and S2 present. No murmurs, rubs, or gallops. -PULMONARY: Chest is clear to auscultation, no wheezing , bilateral basal crackles. -ABDOMEN: Tense, generalized abdominal tenderness, no rebound tenderness or guarding, distended, mildly normoactive bowel sounds. No palpable organomegaly. NG tube in place with no significant output MUSCULOSKELETAL: No joint swelling or deformity. -EXTREMITIES: No cyanosis, clubbing, patient has bilateral pitting leg edema. NEUROLOGICAL: Gross neurological examination did not reveal any focal deficits. SKIN: No rashes. no petechiae. - Labs CBC & Chem 7: 11/27/22 09:19 11/27/22 16:20 Labs: Abnormal Lab Results - Last 24 Hours (Table) 11/26/22 11/26/22 11/26/22 Range/Units 12:51 16:35 20:26 WBC (3.8-10.6) k/uL RBC (4.30-5.90) m/uL Hgb (13.0-17.5) gm/dL Hct (39.0-53.0) % MCV (80.0-100.0) fL MCH (25.0-35.0) pg RDW (11.5-15.5) % Plt Count (150-450) k/uL Neutrophils # (Manual) (1.3-7.7) k/uL Monocytes # (Manual) (0-1.0) k/uL Eosinophils # (Manual) (0-0.7) k/uL Macrocytosis Sodium 124 L (137-145) mmol/L Chloride 92 L (98-107) mmol/L BUN 45 H (9-20) mg/dL Creatinine 1.87 H (0.66-1.25) mg/dL Glucose 204 H (74-99) mg/dL POC Glucose (mg/dL) 303 H 290 H (70-110) mg/dL Calcium 6.9 L (8.4-10.2) mg/dL 11/26/22 11/27/22 11/27/22 Range/Units 21:33 06:19 09:19 WBC 19.1 H 19.8 H (3.8-10.6) k/uL RBC 1.88 L 1.88 L (4.30-5.90) m/uL Hgb 7.1 L 7.2 L (13.0-17.5) gm/dL Hct 21.4 L 21.4 L (39.0-53.0) % MCV 114.2 H 114.0 H (80.0-100.0) fL MCH 38.0 H 38.3 H (25.0-35.0) pg RDW 21.1 H 21.5 H (11.5-15.5) % Plt Count 78 L 72 L (150-450) k/uL Neutrophils # (Manual) 16.40 H (1.3-7.7) k/uL Monocytes # (Manual) 1.19 H (0-1.0) k/uL Eosinophils # (Manual) 0.99 H (0-0.7) k/uL Macrocytosis Marked A Marked A Sodium (137-145) mmol/L Chloride (98-107) mmol/L BUN (9-20) mg/dL Creatinine (0.66-1.25) mg/dL Glucose (74-99) mg/dL POC Glucose (mg/dL) 152 H (70-110) mg/dL Calcium (8.4-10.2) mg/dL 11/27/22 11/27/22 Range/Units 09:19 11:37 WBC (3.8-10.6) k/uL RBC (4.30-5.90) m/uL Hgb (13.0-17.5) gm/dL Hct (39.0-53.0) % MCV (80.0-100.0) fL MCH (25.0-35.0) pg RDW (11.5-15.5) % Plt Count (150-450) k/uL Neutrophils # (Manual) (1.3-7.7) k/uL Monocytes # (Manual) (0-1.0) k/uL Eosinophils # (Manual) (0-0.7) k/uL Macrocytosis Sodium 122 L (137-145) mmol/L Chloride 92 L (98-107) mmol/L BUN 52 H (9-20) mg/dL Creatinine 2.08 H (0.66-1.25) mg/dL Glucose 211 H (74-99) mg/dL POC Glucose (mg/dL) 256 H (70-110) mg/dL Calcium 7.1 L (8.4-10.2) mg/dL Assessment and Plan Assessment: Acute abdominal tenderness with CT evidence of colonic ileus and possible appendicitis, cannot exclude intra-abdominal sepsis 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 Recent CT of the brain is negative Acute diastolic CHF, currently patient got more contraction Acute kidney injury on chronic kidney disease stage III Acute metabolic alkalosis, possibly exacerbated by contraction alkalosis. moderate to severe mitral regurgitation Severe pulmonary hypertension Mild COPD exacerbation Chronic atrial fibrillation Plan: Advance diet to regular per surgery team, if tolerates diet patient may be considered for discharge tomorrow continue with Zosyn. Continue with gentle hydration currently on D5 W. Pain management, Continue with lactulose, ammonia is back to reference range . 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 GI team on the case (both GI and nephrology cleared the patient for discharge) cartilage team already sign off. Pulmonary team on the case and currently on a prednisone 40 mg (pulmonary service signed off the case today 11/21) Monitor her mentation Labs and medication were reviewed.. Continue same treatment. Continue with symptomatic treatment. Resume home medication. Monitor labs and vitals. DVT and GI prophylaxis. Further recommendations as per clinical course of the patient DVT prophylaxis: Eliquis which was held In case he would need surgery, we don't put him on Lovenox 60 mg twice daily as patient is an chronic atrial fibrillation GI prophylaxis: Protonix PT/OT Deferred No code Prognosis is guarded. Patient is high-risk for decompensation or complication. Long-term prognosis is also guarded. Patient high risk for readmission
[2022-11-28] MEDS: BUDESONIDE 0.5 MG/2 ML NEBU INHALATION SCH ×2 (08:11→21:07)
[2022-11-28] MEDS: IPRATROPIUM-ALBUTEROL 3 ML NEB INHALATION SCH ×3 (08:11→21:07)
[2022-11-28] MEDS: APIXABAN 2.5 MG TABLET PO SCH ×2 (09:31→19:55)
[2022-11-28] MEDS: ATORVASTATIN 40 MG TAB PO SCH (09:32)
[2022-11-28] MEDS: MULTIVITAMINS, THERA 1 EACH TAB PO SCH (09:32)
[2022-11-28] MEDS: predniSONE 10 MG TAB PO SCH (09:32)
[2022-11-28] MEDS: FERROUS SULFATE 325 MG TAB PO SCH (09:32)
[2022-11-28] MEDS: THIAMINE 100 MG/ML 2 ML VIAL IVP SCH (09:32)
[2022-11-28] MEDS: POTASSIUM CHLORIDE ER 20 MEQ TAB.ER PO SCH (09:32)
[2022-11-28] MEDS: PIPERACILLIN-TAZOBACTAM 3.375 GM in SODIUM CHLORIDE 0.9% 100 ML IVPB SCH (09:33)
[2022-11-28] MEDS: LACTULOSE 20 GM/30 ML CUP PO SCH ×2 (09:33→19:58)
[2022-11-28 11:25] LABS: Glucose,Whole Blood 272 mg/dL (70-110)
--- NOTE | 2022-11-28 11:50 | P.PN ---
Subjective Patient is seen for follow-up for acute kidney injury. Currently off of diuretics and maintained on IV fluids. Good UOP Serum creatinine at 1.7- 1.9 mg/dL Sodium had dropped to 122 yesterday. D5W was discontinued. Status post sodium chloride tabs Patient is tolerating oral intake. He wants to go home. Labs are pending from today. Objective - Vital Signs Vital signs: Vital Signs Temp 97.6 F 11/28/22 08:00 Pulse 72 11/28/22 08:21 Resp 19 11/28/22 08:00 BP 125/58 11/28/22 08:00 Pulse Ox 97 11/28/22 08:11 FiO2 28 11/17/22 08:36 Intake & Output 11/27/22 11/28/22 11/28/22 18:59 06:59 18:59 Intake Total 1260 118 Output Total 2 501 375 Balance 1258 -501 -257 Weight 83.7 kg Intake: Oral 1260 118 Output: Urine 500 375 Stool 2 1 Other: Voiding Method Indwelling Catheter Indwelling Catheter Indwelling Catheter # Bowel Movements 1 - Exam Patient is awake. Sitting up in bed. Able to communicate. Mentation at baseline Alert oriented 3 Examination of the heart S1 and S2 Examination of the lungs bilateral breath sounds are heard Abdomen is soft nontender Examination lower extremities shows no significant edema - Labs CBC & Chem 7: 11/27/22 09:19 11/27/22 16:20 Labs: Abnormal Lab Results - Last 24 Hours (Table) 11/27/22 11/27/22 11/27/22 Range/Units 16:20 16:46 19:53 Sodium 123 L (137-145) mmol/L POC Glucose (mg/dL) 239 H 252 H (70-110) mg/dL 11/28/22 11/28/22 Range/Units 05:57 11:24 Sodium (137-145) mmol/L POC Glucose (mg/dL) 216 H 272 H (70-110) mg/dL Assessment and Plan Assessment: 1. Acute kidney injury cardiorenal, status post diuretics, restarted IV fluids. UA is benign. Renal function improved. Serum creatinine staying at about 1.7 - 1.8 mg/dL 2. Chronic kidney disease NKF stage III a secondary to nephrosclerosis with baseline creatinine 1.2-1.3 mg/dL 3. Severe pulmonary hypertension with moderate to severe mitral regurgitation and chronic lower extremity edema 4. Acute on chronic CHF with preserved ejection fraction 5. Coronary artery disease with history of previous coronary stenting 6. Metabolic alkalosis secondary to diuresis, improved with hydration. 7. Hypernatremia associated with free water deficit. Status post D5W 8. Ileus with NG tube, being followed by surgery. NG tube is out 9. Hypokalemia associated with GI fluid loss, currently being replaced 10. Hyponatremia after correction of hypernatremia. D5W has been discontinued. Status post sodium chloride tab Plan: Awaiting labs from today.
[2022-11-28 11:57] LABS: Anisocytosis Moderate; HCT 21.3 % (39.0-53.0); Hypochromasia Slight; MCH 37.2 pg (25.0-35.0); MCHC 32.5 g/dL (31.0-37.0); MCV 114.3 fL (80.0-100.0); Macrocytosis Marked; Mean Platelet Volume 11.4; Poikilocytosis Slight; RBC 1.86 m/uL (4.30-5.90); RDW 22.3 % (11.5-15.5); WBC 17.8 k/uL (3.8-10.6)
--- NOTE | 2022-11-28 11:57 | P.PN ---
Subjective Progress Note Date: 11/28/22 Principal diagnosis: Pulmonary edema. The patient is seen today 11/22/2022 in follow-up on the selective care unit. He is currently awake and alert. Maintaining O2 saturations in the upper 90s on 4 L/m per nasal cannula. He's been afebrile. Hemodynamically stable. Computed tomography scan of the abdomen and pelvis revealed a dilated appendix with gas within the tip. There is some nonspecific surrounding fluid/stranding. Findings could be seen with acute appendicitis. Gas and stool filled dilated colon and rectum without focal transition point suggestive of an colonic ileus. 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 Hepatic cirrhosis with findings suggestive of portal hypertension with trace ascites and splenic collaterals. Right adrenal gland lipid rich adenoma. Nonobstructive bilateral renal calculi. Surgical services are following. Nasogastric tube has been placed. Today's chest x-ray reveals cardiomegaly. Chronic parenchymal changes without new focal airspace opacity, pleural effusion or pneumothorax. Blood cultures revealed no growth. White count 23.9. Hemoglobin 7.5. MCV is 122. Platelet count 73,000. Sodium 136. Potassium 3.1. Bicarb 30. BUN 59. Creatinine 1.74. Glucose 337. He is continued on DuoNeb inhalations, Pulmicort inhalations, prednisone taper. She is on Xifaxan, Zosyn, Levaquin. Lovenox for anticoagulation. The patient is seen today 11/23/2022 in follow-up on the selective care unit. He is awake, alert, oriented. Resting fairly comfortably in bed. Denies any worsening shortness of breath, cough or congestion. Denies any significant abdominal pain. Nasogastric tube remains in place. Chest x-ray reveals cardiomegaly. Chronic parenchymal changes without any new focal airspace opacities, pleural effusion or pneumothorax. He is maintaining good O2 saturations in the upper 90s on 2 L/m per nasal cannula. He is afebrile. Hemodynamically stable. White count 19.6. Hemoglobin 7.5. Platelets 94,000. Sodium 146. Potassium 2.9. Bicarb 33. BUN 65. Creatinine 1.94. Glucose 137. He remains on rifaximin and Zosyn. Continued on bronchodilators. Patient is seen today 11/24/2022 in follow-up on the selective care unit. He is resting comfortably in bed. He remains awake, alert, oriented. His is at the bedside. He is having bowel movements. Nasogastric tube remains in place. Blood cultures revealed no growth. Blood sugar 156. He is continued on DuoNeb inhalations. Prednisone taper. Remains on Zosyn. Remains on rifaximin. Anticoagulated with Lovenox. Continued on D5W at 50 MLS per hour. The patient is seen today 11/26/2022 in follow-up on the selective care unit. He remains awake and alert oriented. His is at the bedside. He is resting comfortably in bed. He is having bowel movements. Nasogastric tube has been discontinued. He is tolerating a liquid diet. Denies any abdominal discomfort. No nausea or vomiting. Blood cultures revealed no growth in blood glucose 174. He remains on DuoNeb inhalations, Pulmicort inhalations. Prednisone taper. Antibiotics in the form of Zosyn. Lovenox for anticoagulation. Progress note dated 11/27/2022. The patient is seen today in room 372. The patient apparently will not be discharged today, because his hemoglobin was 7.2, and his sodium was 122. The patient's on room air. The patient is not receiving any IV fluids. Clinically, the patient looks very safe, and could be discharged home from the pulmonary standpoint. White count is 19.8, hemoglobin 7.2, hematocrit 21.4, and platelet count of 72,000. Sodium is 122, potassium 4.1, chlorides 92, CO2 26, BUN 52, and creatinine 2.08. Blood cultures are negative. Progress note dated 11/28/2022. The patient is seen today in room 372. The patient was not discharged yesterday, because of a low hemoglobin of 7.2 and a low sodium of 123. The patient clinically is stable. He is on room air. He is not receiving any IV fluids and he was waiting for his lab results today. He has no new complaints today. Labs, currently pending at the time of this dictation. Blood cultures were negative. Objective - Vital Signs Vital signs: Vital Signs Temp 97.6 F 11/28/22 08:00 Pulse 72 11/28/22 08:21 Resp 19 11/28/22 08:00 BP 125/58 11/28/22 08:00 Pulse Ox 97 11/28/22 08:11 FiO2 28 11/17/22 08:36 Intake & Output 11/27/22 11/28/22 11/28/22 18:59 06:59 18:59 Intake Total 1260 118 Output Total 2 501 375 Balance 1258 -501 -257 Weight 83.7 kg Intake: Oral 1260 118 Output: Urine 500 375 Stool 2 1 Other: Voiding Method Indwelling Catheter Indwelling Catheter Indwelling Catheter # Bowel Movements 1 - Exam No acute distress, oriented 3. Currently on room air. HEENT examination is grossly unremarkable. Neck supple. Full range of motion. No adenopathy thyromegaly or neck vein distention. Cardiovascular examination reveals regular rhythm rate. S1-S2 normal. No S3 or S4. No discernible murmur noted. Heart rate 64 bpm. Lungs reveal clear breath sounds. Breath sounds are equal bilaterally. No adventitious lung sounds including wheezes rhonchi or crackles. Room air saturation is 97%. Abdomen soft bowel sounds are heard. No masses or tenderness. Extremities are intact. No cyanosis clubbing or edema. Skin is without rash or lesion. Neurologic examination is brief but nonfocal. - Labs CBC & Chem 7: 11/27/22 09:19 11/27/22 16:20 Labs: Abnormal Lab Results - Last 24 Hours (Table) 11/27/22 11/27/22 11/27/22 Range/Units 16:20 16:46 19:53 Sodium 123 L (137-145) mmol/L POC Glucose (mg/dL) 239 H 252 H (70-110) mg/dL 11/28/22 11/28/22 Range/Units 05:57 11:24 Sodium (137-145) mmol/L POC Glucose (mg/dL) 216 H 272 H (70-110) mg/dL Assessment and Plan Assessment: Acute hepatic encephalopathy, suspect liver cirrhosis secondary to remote alcohol abuse. Computed tomography scan of the abdomen and pelvis revealed a dilated appendix with gas within the tip. There is some nonspecific surrounding fluid/stranding. Findings could be seen with acute appendicitis. Gas and stool filled dilated colon and rectum without focal transition point suggestive of an colonic ileus. 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 Hepatic cirrhosis with findings suggestive of portal hypertension with trace ascites and splenic collaterals. Right adrenal gland lipid rich adenoma. Nonobstructive bilateral renal calculi. Surgical services are following. Nasogastric tube has been placed and subsequently removed. Tolerating a liquid diet. Altered mental status secondary to above, acute metabolic toxic encephalopathy, improved. Acute diastolic congestive heart failure. Acute on chronic kidney disease. Acute metabolic alkalosis secondary to diuretics. Moderate severe pulmonary hypertension. Moderate severe mitral regurgitation. History of mild COPD. Chronic atrial fibrillation. History of colonic polyps. Type 2 diabetes with diabetic nephropathy. History of CVA without any residual deficit. Plan: Plan dated 11/27/2022. The patient's overall pulmonary status is very stable. He's on room air. NG tube is been removed. The patient could be considered for discharge, but tells me he has not been discharged because his hemoglobin is only 7.2, sodium is 122. Those will be repeated. Clinically he is very stable. Labs, x-rays, and medications are reviewed. The patient does continue on Zosyn. Prognosis is guarded. The patient is a DO NOT RESUSCITATE patient. Plan dated 11/28/2022. The patient's overall pulmonary status is very stable. He's on room air. NG tube is been removed. The patient was not discharged yesterday, because his sodium was 123, and his hemoglobin was 7.2. Labs, currently still pending from today. The patient continues on Zosyn. The patient is a DO NOT RESUSCITATE patient. Clinically, he is very stable. He has no specific complaints. From the pulmonary standpoint, the patient could be discharged when other physicians and consultants, agree. Time with Patient: Less than 30
--- NOTE | 2022-11-28 11:58 | P.PN ---
Subjective Progress Note Date: 11/28/22 Principal diagnosis: Hepatic encephalopathy This is a 82-year-old male who presented to the emergency department 11 days ago with complaints of shortness of breath and lower extremity swelling. Patient was admitted with acute on chronic congestive heart failure with acute dyspnea, and severe pulmonary hypertension. He has a past medical history including congestive heart failure, chronic lower extremity edema, chronic stage III kidney disease, diabetes mellitus2, obstructive sleep apnea with CPAP, previous history of CVA, skin cancer, chronic hypoxic respiratory failure, chronic atrial fibrillation, COPD and myodysplasia. His who is at the bedside states that the patient became significantly confused about 2-3 days ago. She states at that time he was started on a new oral medication. He was noted to have a significantly elevated ammonia level at 255, elevated LFTs and underwent a liver ultrasound showing cirrhosis of the liver. Gastroenterology was consulted for cirrhosis of the liver. Patient is currently confused, lethargic, and unable to obtain history from patient. History obtained from patient's and chart. She states he has no previous history of cirrhosis of the liver, no history of hepatic encephalopathy. She does state that he was a heavy drinker daily for about 40 years. She states that he quit drinking about 11 or 12 years ago. 11/20/2022 Patient is seen and examined today as a follow-up. He is more awake and alert. He is alert 1. He was able to eat a little breakfast this morning. HE has no complaints. He is still confused and a poor historian, and unable to give any details on past medical history. WBC 10.6 hemoglobin 7.7 platelet count 72,000 sodium 148 potassium 2.7 BUN 73 creatinine 1.65 total bilirubin 3.6 AST 172 ALT 57 alkaline phosphatase 74 ammonia 21 alpha 1 antitrypsin 148 AFP tumor marker less than 3.0, a hepatitis panel nonreactive 11/21/2022 Patient seen and examined as a follow-up. He is a little more awake today but easily falls asleep. He did eat a low-fat of his breakfast. Complaints of some abdominal discomfort and he has abdominal distention. Nursing reported that he only had 1 bowel movement yesterday 1 through the night and one this morning. Patient was CT of the abdomen and pelvis reported dilated appendix with gas within the tip. Nonspecific surrounding fluid/stranding. Findings could be seen with acute appendicitis. Gas and stool-filled dilated colon and rectum without focal transition point suggestive of an colonic ileus. Infrarenal abdominal aortic aneurysm measuring up to 5.3 cm, hepatic cirrhosis with findings suggestive of portal hypertension with trace ascites and splenic collaterals, right adrenal gland lipid rich adenoma, nonobstructive bilateral renal calculi. The patient is not having any nausea or vomiting he's been afebrile. 11/22/2022 Patient seen and examined as a follow-up. He is sitting up in bed he is a little more alert today. States he has a little bit of lower abdominal cramping. No nausea or vomiting. He had a NG tube placed yesterday evening with approximately 200 mL of yellow/clear output. He has been afebrile. He did have an increase in WBC count 23.9, hemoglobin 7.5 hematocrit 24 platelet count 73,000 total bilirubin 2.5 AST 87 ALT 50 alkaline phosphatase 73 ammonia 11 11/23/2022 Patient seen and examined today as a follow-up. He is laying in bed. is by his bedside. He is again more awake and alert today. He is denying any abdominal pain. He reportedly had a small loose bowel movement through the night. No reported blood in his stool. He denies any nausea or vomiting. He pulled out his NG tube through the night he currently has one in place to assist third one he has approximately 100 mL out of maroon colored drainage. Repeat CT of the abdomen and pelvis reporting similar appearing appendix with gas within the tip. Fluid around the appendix is felt to be secondary to ascites. Gas and stool-filled dilated colon and rectum without focal transition point suggestive of an colonic ileus. Infrarenal abdominal aortic aneurysm measuring up to 5.3 cm. Hepatic cirrhosis with findings suggestive of portal hypertension with trace ascites and splenic collaterals. Right adrenal gland lipid rich adenoma. Nonobstructive bilateral renal calculi 11/26/2022 Patient seen and examined today as follow-up. He continues to improve over the weekend. Abdominal distention improving. NG tube was pulled out yesterday. He was started on clear liquid diet by general surgery. Denies any nausea or vomiting. Patient's mentation back to baseline. His lactulose had been discontinued. He remains on Xifaxin. 11/27/2022 Patient was not seen as he was out of the room. 11/28/2022 Patient seen and examined as a follow-up. No acute changes through the night. Denies any abdominal pain. Continues to have regular bowel movements with lactulose. Brown, nonbloody. Tolerating his diet. He has been hyponatremic the last couple days. Today's labs are currently pending. Patient with macr ocytic anemia likely associated with underlying liver disease and alcohol abuse, and also can be a component of MDS. Objective - Vital Signs Vital signs: Vital Signs Temp 97.6 F 11/28/22 08:00 Pulse 72 11/28/22 08:21 Resp 19 11/28/22 08:00 BP 125/58 11/28/22 08:00 Pulse Ox 97 11/28/22 08:11 FiO2 28 11/17/22 08:36 Intake & Output 11/27/22 11/28/22 11/28/22 18:59 06:59 18:59 Intake Total 1260 118 Output Total 2 501 375 Balance 1258 -501 -257 Weight 83.7 kg Intake: Oral 1260 118 Output: Urine 500 375 Stool 2 1 Other: Voiding Method Indwelling Catheter Indwelling Catheter Indwelling Catheter # Bowel Movements 1 - Exam General appearance: The patient is awake and alert, appears in no acute distress. HET: Head is normocephalic and atraumatic. Conjunctiva pink. Sclera anicteric. Neck: Supple without lymphadenopathy. Abdomen: Soft, obese, nontender, mildly distended. No guarding or rigidity. Extremities: Normal skin color and turgor. No pedal edema Skin: No rashes, no jaundice Neurological: More alert today. Answers questions appropriately. - Labs CBC & Chem 7: 11/28/22 11:09 11/28/22 17:59 Labs: Abnormal Lab Results - Last 24 Hours (Table) 11/27/22 11/27/22 11/27/22 Range/Units 16:20 16:46 19:53 Sodium 123 L (137-145) mmol/L POC Glucose (mg/dL) 239 H 252 H (70-110) mg/dL 11/28/22 11/28/22 Range/Units 05:57 11:24 Sodium (137-145) mmol/L POC Glucose (mg/dL) 216 H 272 H (70-110) mg/dL Assessment and Plan (1) Liver cirrhosis Narrative/Plan: 82-year-old male who presented with shortness of breath with acute on chronic congestive heart failure with history of multiple comorbidities who recently became confused, with altered mental status changes. He underwent a CT of the brain that showed no acute findings. He did have some mild elevation in his bilirubin and AST with history of alcohol abuse. Ammonia level was drawn and came back at 255. He was started on lactulose 200 mg every 6 hours per rectum with improvement in his ammonia level to 48 today. No prior history of cirrhosis of the liver hepatic encephalopathy however reports long-standing history of alcohol dependency of 40 years. Ultrasound of the liver does report nodular hepatic contour which may reflect underlying cirrhotic liver disease. Patient likely has cirrhosis of the liver from many years of alcohol abuse, with hepatic encephalopathy however need to consider other possible etiologies. Will get AFP, hepatitis panel, alpha-1 antitrypsin, DAVID. Mentation slowly improving. Will need to continue outpatient monitoring and continue with lactulose. Add Xifaxin. Liver serologies workup negative to date, as well as hepatitis panel nonreactive. 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 Current Visit: Yes Status: Acute Code(s): K74.60 - UNSPECIFIED CIRRHOSIS OF LIVER SNOMED Code(s): 07051873 (2) Hepatic encephalopathy Narrative/Plan: Need to resume lactulose for decompensated cirrhosis of liver with hepatic encephalopathy. Continue Xifaxan as ordered. Current Visit: Yes Status: Acute Code(s): K76.82 - HEPATIC ENCEPHALOPATHY SNOMED Code(s): 24414010 (3) Congestive heart failure Current Visit: Yes Status: Acute Code(s): I50.9 - HEART FAILURE, UNSPECIFIED SNOMED Code(s): 75742178 (4) Atrial fibrillation Current Visit: Yes Status: Acute Code(s): I48.91 - UNSPECIFIED ATRIAL FIBRILLATION SNOMED Code(s): 66159927 (5) Dyspnea Current Visit: Yes Status: Acute Code(s): R06.00 - DYSPNEA, UNSPECIFIED SNOMED Code(s): 132996741 (6) Chronic kidney disease Current Visit: Yes Status: Acute Code(s): N18.9 - CHRONIC KIDNEY DISEASE, UNSPECIFIED SNOMED Code(s): 309306737 (7) MDS (myelodysplastic syndrome) Current Visit: No Status: Chronic Priority: High Code(s): D46.9 - MYELODYSPLASTIC SYNDROME, UNSPECIFIED SNOMED Code(s): 466988645 (8) Hypokalemia Narrative/Plan: Replace potassium per protocol Current Visit: Yes Status: Acute Code(s): E87.6 - HYPOKALEMIA SNOMED Code(s): 33200426 (9) Ileus Narrative/Plan: Continue with recommendations from general surgery Current Visit: Yes Status: Acute Code(s): K56.7 - ILEUS, UNSPECIFIED SNOMED Code(s): 143939765 (10) Anemia Narrative/Plan: Likely related to underlying liver disease as well as MDS. No signs of GI blood loss. Current Visit: Yes Status: Acute Code(s): D64.9 - ANEMIA, UNSPECIFIED SNOMED Code(s): 692551447 Plan: 1. Continue symptomatic and supportive care 2. Resume lactulose at 30 g twice a day titrate to have bowel movement 2-3 daily 3. Continue Xifaxin 550 mg BID 4. Continue alcohol abstinence and avoid hepatotoxic medications 5. Continue with recommendations from general surgery 6. Replace potassium per protocol 7. Continue medical management per primary team and multiple consultants 8. No further workup from gastroenterology, patient is cleared for discharge from gastroenterology with follow-up in the office Follow-up with gastroenterology in 1-2 weeks following discharge Thank you for this consultation, we will sign off at this time. Dr. Devan Moody I agree with the dictator's note, documented as a scribe by Mary West.
[2022-11-28 11:59] LABS: African American GFR (CKD) 32 (>60 ml/min/1.73 sqM); Anion Gap 7 mmol/L; Blood Urea Nitrogen 54 mg/dL (9-20); Calcium 7.3 mg/dL (8.4-10.2); Carbon Dioxide 22 mmol/L (22-30); Chloride 94 mmol/L (98-107); Glucose 222 mg/dL (74-99); Non-African American GFR(CKD) 27 (>60 ml/min/1.73 sqM); Potassium 3.7 mmol/L (3.5-5.1); Sodium 123 mmol/L (137-145)
[2022-11-28 12:09] LABS: HGB 6.9 gm/dL (13.0-17.5); Platelet Count 68 k/uL (150-450)
--- NOTE | 2022-11-28 12:59 | P.PN ---
Subjective Progress Note Date: 11/28/22 CHIEF COMPLAINT: Shortness of breath HISTORY OF PRESENT ILLNESS: Patient denies any abdominal pain. He has been having bowel movements. Denies any nausea or vomiting. Tolerating regular diet. Afebrile. WBC is down from 19.8 to 17.8. Hgb is down from 7.2-6.9 platelets 68 sodium 123 potassium 3.7 creatinine 2.17. Patient is scheduled for 1 unit of blood. PHYSICAL EXAM: VITAL SIGNS: Reviewed. GENERAL: Well-developed in no acute distress. ABDOMEN: Soft. Distended. Nontender NEUROLOGIC: Patient is awake and alert ASSESSMENT: 1. Colonic ileus 2. Appendicitis ruled out. No evidence of acute appendicitis on CAT scan. Fluid around the appendix is likely ascites 3. Leukocytosis 4. hepatic encephalopathy with alcoholic cirrhosis 5. CHF exacerbation 6. Hypokalemia improved 7. Hyponatremia 8. Anemia PLAN: -Patient scheduled for 1 unit of blood for hemoglobin 6.9 -Continue supportive care -Continue regular diet -Encourage patient to increase activity level Physician Canvas Shrinker note has been reviewed by physician. Signing provider agrees with the documented findings, assessment, and plan of care. Objective - Vital Signs Vital signs: Vital Signs Temp 97.8 F 11/28/22 12:00 Pulse 68 11/28/22 12:01 Resp 19 11/28/22 12:00 BP 122/61 11/28/22 12:00 Pulse Ox 100 11/28/22 12:00 FiO2 28 11/17/22 08:36 Intake & Output 11/27/22 11/28/22 11/28/22 18:59 06:59 18:59 Intake Total 1260 118 Output Total 2 501 375 Balance 1258 -501 -257 Weight 83.7 kg Intake: Oral 1260 118 Output: Urine 500 375 Stool 2 1 Other: Voiding Method Indwelling Catheter Indwelling Catheter Indwelling Catheter # Bowel Movements 1 - Labs CBC & Chem 7: 11/28/22 11:09 11/28/22 11:09 Labs: Abnormal Lab Results - Last 24 Hours (Table) 11/27/22 11/27/22 11/27/22 Range/Units 16:20 16:46 19:53 WBC (3.8-10.6) k/uL RBC (4.30-5.90) m/uL Hgb (13.0-17.5) gm/dL Hct (39.0-53.0) % MCV (80.0-100.0) fL MCH (25.0-35.0) pg RDW (11.5-15.5) % Plt Count (150-450) k/uL Macrocytosis Sodium 123 L (137-145) mmol/L Chloride (98-107) mmol/L BUN (9-20) mg/dL Creatinine (0.66-1.25) mg/dL Glucose (74-99) mg/dL POC Glucose (mg/dL) 239 H 252 H (70-110) mg/dL Calcium (8.4-10.2) mg/dL 11/28/22 11/28/22 11/28/22 Range/Units 05:57 11:09 11:09 WBC 17.8 H (3.8-10.6) k/uL RBC 1.86 L (4.30-5.90) m/uL Hgb 6.9 L* (13.0-17.5) gm/dL Hct 21.3 L (39.0-53.0) % MCV 114.3 H (80.0-100.0) fL MCH 37.2 H (25.0-35.0) pg RDW 22.3 H (11.5-15.5) % Plt Count 68 L (150-450) k/uL Macrocytosis Marked A Sodium 123 L (137-145) mmol/L Chloride 94 L (98-107) mmol/L BUN 54 H (9-20) mg/dL Creatinine 2.17 H (0.66-1.25) mg/dL Glucose 222 H (74-99) mg/dL POC Glucose (mg/dL) 216 H (70-110) mg/dL Calcium 7.3 L (8.4-10.2) mg/dL 11/28/22 Range/Units 11:24 WBC (3.8-10.6) k/uL RBC (4.30-5.90) m/uL Hgb (13.0-17.5) gm/dL Hct (39.0-53.0) % MCV (80.0-100.0) fL MCH (25.0-35.0) pg RDW (11.5-15.5) % Plt Count (150-450) k/uL Macrocytosis Sodium (137-145) mmol/L Chloride (98-107) mmol/L BUN (9-20) mg/dL Creatinine (0.66-1.25) mg/dL Glucose (74-99) mg/dL POC Glucose (mg/dL) 272 H (70-110) mg/dL Calcium (8.4-10.2) mg/dL
[2022-11-28] MEDS: SODIUM CHLORIDE 0.9% 1,000 ML IV SCH (13:35)
[2022-11-28 16:32] LABS: Glucose,Whole Blood 316 mg/dL (70-110)
[2022-11-28 18:30] LABS: African American GFR (CKD) 35 (>60 ml/min/1.73 sqM); Anion Gap 9 mmol/L; Blood Urea Nitrogen 55 mg/dL (9-20); Calcium 7.5 mg/dL (8.4-10.2); Carbon Dioxide 21 mmol/L (22-30); Chloride 92 mmol/L (98-107); Glucose 252 mg/dL (74-99); Non-African American GFR(CKD) 30 (>60 ml/min/1.73 sqM); Potassium 3.9 mmol/L (3.5-5.1); Sodium 122 mmol/L (137-145)
[2022-11-28] MEDS: TAMSULOSIN 0.4 MG CAP.ER.24H PO SCH (19:55)
[2022-11-28] MEDS: guaiFENesin-DM 100-10MG/5ML 10 ML CUP PO PRN (19:56)
[2022-11-28] MEDS: LATANOPROST 0.005% OPHTH DROPS 2.5 ML BTL BOTH EYES SCH (19:56)
[2022-11-28] MEDS: DORZOLAMIDE-TIMOLOL 2.23%/0.68 10ML BTL BOTH EYES SCH (19:57)
[2022-11-28] MEDS ORDERED: TOLVAPTAN 15 MG TABLET PO ONE (20:00)
[2022-11-28 20:04] LABS: Glucose,Whole Blood 295 mg/dL (70-110)
[2022-11-29] MEDS: SODIUM CHLORIDE 0.9% 1,000 ML IV SCH ×2 (03:56→17:29)
--- NOTE | 2022-11-29 06:00 | P.PN ---
Subjective Progress Note Date: 11/28/22 This is a pleasant 82 years old male with multiple medical problems including history of heart failure presents with worsening dyspnea and leg swelling on and he was found with fluid overload secondary to diastolic CHF, echocardiogram from 09/2022 showing ejection fraction 55%. Currently cardiolo lucio signed off the case and patient being monitored closely by nephrology team. He remains on Lasix drip 10 mg/h, creatinine 1.4, 1.6 and 2.1. Discuss case with nephrology team who recommended to keep the Lasix drip for now. Pulmonary team on the case for mild COPD exacerbation and currently on a prednisone 40 mg. Hemoglobin 7.8. 11/17/2022 patient CHF and fluid overload improving, his oxygen saturation is acceptable and wants only with minimal crepitation mainly on the right side however he still have 2+ leg edema. However patient developed more alkalosis therefore Lasix drip was stopped and started on torsemide while the dose for Zaroxolyn was lowered to 2.5 mg. Creatinine is stable at 2.0 compared to 1.4 on admission. However patient become more confused today most likely secondary to metabolic encephalopathy and toxic encephalopathy. No recent fall. Patient fell about 3 days ago at that time CT of the brain was negative. Workup showing ammonia level is high at 255 and lactulose is added. We will continue neuro check and consider repeat CT of the brain condition worsens Pressure applied with sponge gel to bleeding superficial ulcer on the right forearm. 11/18/2022 Patient still confused and sleepy this morning from yesterday he got worse significantly. There is no new symptoms, he slipped with the And tachycardic. He had low-grade temperature of 99.8. Leukocytosis worsened 10.5 up to 17,000. Chest x-ray and urinalysis were repeated they were negative for acute process. Risks of flaps looks stable. Creatinine 1.9 which is a stable but higher than baseline because he was on Lasix drip. The sixth rib. Now, torsemide is only once daily. Also patient started on normal saline 75 mL/h Patient continued on prednisone 40 mg once a Eliquis area We will send blood culture and check liver ultrasound as liver enzymes and bilirubin only mildly elevated although this is not very new. Plan discussed with staff and bedside nurse more than once. 11/19/2022 Patient slightly improving regarding his mentation, he still confused sleepy and does not respond to verbal or tactile stimuli but he opens his eyes from moving in bed to some degree which she was not doing its yesterday. His ammonia level is elevated yesterday to 55 and liver ultrasound showing possible liver cirrhosis which is most likely related to alcoholic liver cirrhosis. GI team. He is started on lactulose and ammonia level improved and 48. Also he remains on normal saline at 50 mL/h, alert from 75 mm/h for acute kidney injury and metabolic abnormalities including contraction alkalosis. Check labs tomorrow 11/20/2022 Patient is more awake and interactive significantly better than yesterday and he can answer some questions but still confused and not quite back to his baseline. However patient denies any pain or specific symptoms. He has frequent bowel movements. GI team on the case for his hepatic encephalopathy and his lactulose dose was increased to 30 mg 3 times a day and rifaximin is added. Sodium 148 and patient started on D5 W Creatinine improving down to 1.6. Patient remains on prednisone 40 mg 11/21/2022 Patient today sitting up in bed with sitter at bedside for safety, patient still little confused to the surrounding but improved compared to yesterday. Patient is not eating well he starts complaining from abdominal pain and tenderness today,(yesterday his abdomen was not tender on exam) on exam he had distention and tenderness periumbilical area, computed tomography scan of the abdomen and pelvis was obtained showing gas appendix suspicious for appendicitis and dilated bowel with no transitions zone suspicious for ileus. Patient hemodynamically stable and is afebrile, tachycardia improved. Ammonia improved to baseline yesterday. Creatinine is stable and improved down to 1.6. Hemoglobin is stable at 8.1 and he has mild leukocytosis. Patient was started on Zosyn with surgery to consult I discussed the case with Gen. surgery evaluated the patient 11/22/2022 Patient today still tired and lethargic. But he wakes up and talk to family and at bedside and mentation improved since she started on lactulose. However he developed ileus and abdominal tenderness yesterday and there was suspicion of gas and the appendix suspicious for acute appendicitis, I discussed the case with surgery team and Dr. Begum we are not sure if this is a case of acute appendicitis however it is not entirely excluded or abdominal sepsis especially in view of his abdominal tenderness ileus and abdominal distention. Patient is not able to eat. NG tube was placed in the morning but no output. His labs showing worsening leukocytosis up to 23,000, hemoglobin slightly less 7.5, platelets slightly less at 70 3K, creatinine is slightly up 1.7. Because of this was started on Zosyn yesterday for covering gram-negative and an aerobic microorganisms and we are going to add Levaquin intravenously for better gram-negative coverage given his worsening situation area Of note ammonia level down to 11 and sodium level improved to normal at 136 today. He is hemodynamically stable and afebrile. He was started on normal saline 50 mL/h. Also continued on prednisone 40 mg, rifaximin 550 mg which is another antibiotic. He is still on lactulose 30 g and breathing treatment I talked to the at bedside that's is a very good surgical candidate if surgical intervention is warranted given his a newly diagnosed liver cirrhosis and decompensated liver function Avalide verbalized understanding and acceptance this information. Also she understands that his prognosis is very guarded. Patient is high-risk for deterioration despite treatment. And I told the even if his 5 this episode given his multiple progressive problems with the complication make his long-term prognosis poor as well. She verbalized understanding and acceptance. Currently patient already no good Diuretics are held Alk phos was held Discussed with staff 11/23/2022 patient today showed drastic improvement in his mentation that his back to baseline fully awake and oriented, still feels tired overall and generally He still have NG tube in a Place and hemocculted up twice to has to be inserted, draining dark brown discharge. About 100 mL in the bag. Abdominal distention also less abdominal tenderness is the severe compared to yesterday He had some very small bowel movement. But they denies chest pain or dyspnea He remains on D5W at 50 mL/h. Also remains on antibiotic with Zosyn and rifaximin, home dose of all liquids, prednisone 40 mg and lactulose 11/24/2022 Since yesterday's mentation is starts improving and today he is even more awake and alert back to baseline as per at bedside. NG tube in place with dark aspirate, less than 100 mL he ended bag. No abdominal pain or tenderness, abdominal distention is improved. He had several bowel movements. Creatinine is stable at 1.8. Platelets 94, hemoglobin same as 7.5, and WBC trending down to 19,000. He remains on Lovenox 60 mg, prednisone 40 mg, Lasix was discontinued several days ago and currently is on fluid restriction 11/25/2022 Patient sitting in bed comfortable, mentation is at baseline, at bedside which confirms this. Patient abdominal distention is improving. He had NG tube which is taken TODAY by mistake, however with improvement with abdominal distention and abdominal pain patient is a started on liquid diet today. Kidney function improved down to 1.7, sodium 140, patient remains on D5W at 50 mL per hour. Low potassium 2.9. And replace per protocol and follow closely. Patient is having 4-5 bowel movements which helped him regarding his hepatic encephalopathy with his improved Patient also remains on a prednisone 40 mg COPD exacerbation. Yulia is in hold and currently is taking Lovenox therapeutic dose. Today I discussed medical problems and plan with the patient and at bedside and all questions answered to her satisfaction. We will lower his prednisone to 30 mg daily from tomorrow, he was taken. There is a 40 mg more than a week 11/26/2022 Patient is doing well today, his pleasant relaxed comfortable sitting in chair with no complaint. Denies any complaints stating that he is back to baseline creatinine is mentation. No chest pain abdominal pain no vomiting. No urinary complaints. He is hemodynamically stable possible trial on room air Labs also stable, he has stopped leukocytosis of 20,000 but this is thought secondary to steroid effect and is stable. No fever or other signs of infection. Already patient received antibiotics and currently he is asymptomatic. Hemoglobin is stable at 7.6 and we change his Lovenox back to his home dose of leg was 2.5 mg twice a day. Platelets also stable at 91,000. Creatinine is stable at 1.8. Patient is having regular bowel movement about 2-4 each day as he told me. No abdominal pain. He Liquid Diet and Advanced a 2 Regular Diet. And If He Tolerates That Well He Would Be Considered for Discharge Tomorrow Physical Therapist Evaluated Him Today and the Recommended Home with Home Care. Patient Remains on D5W Today. Lactulose 30 Mg Twice a Day. Tomorrow Last Dose of Zosyn and What May Be Changed to Augmentin upon Discharge. And He Is on Prednisone 30 Mg Which Will Be Tapered upon Discharge As Well Possible Discharge in 24-48 Hours Long-Term Prognosis Remains Guarded Given Complex Hospital Course, Multiple Complex Medical Problems and Age. 11/27/2022 Patient clinically significantly improved and he is back to normal costal normal. He denies any specific complaints Bed comfortable. He denies chest pain or dyspnea. He tolerates diet well. NG tube output. No abdominal pain or distention. He has regular bowel movement about 3 per day while he is on lactulose 30 mg twice daily. Prednisone dose IS been tapered Name is on liquids and remains on Zosyn . Patient may be considered for discharge home her sodium today was 122 and we stopped his D5W. Also his hemoglobin 7.1-7.2 STABLE but will close monitoring Physical therapy recommended home with home care 11/28/2022 Patient is seen and evaluated in follow-up with multiple medical consultations following. Patient extremely anxious and wanting to go home and awaiting follow-up labs. Hemoglobin was found to be 6.9 this morning and will give a unit of PRBC. Patient also continues with indwelling Ruiz catheter for retention and will continue for now with possible outpatient trial voiding and urology follow-up. Patient is being given gentle IV hydration with normal saline with nephrology following recommend follow-up labs. Sodium continues to be low. Encouraged oral intake and increased activity as tolerated. at the bedside and questions and concerns were answered. Review of systems: Constitutional: No reports of fatigue, fever, or chills Cardiovascular: No reports of chest pain or palpitations Respiratory: No reports of worsening shortness of breath or cough GI: No reports of nausea, vomiting, or diarrhea : No reports of dysuria or retention, did have urinary retention Neurovascular: No reports of weakness or numbness All medications have been reviewed Physical exam: GENERAL: The patient is awake, alert and oriented 3, obese Well developed, well nourished. HEENT: Pupils are round and equally reacting to light. EOMI. No scleral icterus. No conjunctival pallor. Normocephalic, atraumatic. No pharyngeal erythema. No thyromegaly. CARDIOVASCULAR: S1 and S2 present. No murmurs, rubs, or gallops. PULMONARY: Breath sounds bilaterally with some scattered rhonchi noted ABDOMEN: Tense, generalized abdominal tenderness, no rebound tenderness or guarding, distended, mildly normoactive bowel sounds. No palpable organomegaly. MUSCULOSKELETAL: No joint swelling or deformity. EXTREMITIES: No cyanosis, clubbing, patient has bilateral pitting leg edema improving. NEUROLOGICAL: Gross neurological examination did not reveal any focal deficits. SKIN: No rashes. no petechiae. Assessment: Acute abdominal tenderness with CT evidence of colonic ileus and possible appendicitis, cannot exclude intra-abdominal sepsis 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 Recent CT of the brain is negative. Improved Acute diastolic CHF, acute exacerbation chronic kidney disease stage III Acute metabolic alkalosis, possibly exacerbated by contraction alkalosis. moderate to severe mitral regurgitation Severe pulmonary hypertension Mild COPD exacerbation Chronic atrial fibrillation GI prophylaxis DVT prophylaxis No code Plan: Advance diet to regular per surgery team, patient tolerating diet. Abdomen is distended which is chronic and patient reports is having bowel movements continue with Zosyn. Continue with gentle hydration currently on normal saline with nephrology following recommend follow-up labs. Sodium continues to be low and nephrology following Continue prednisone taper and patient will need outpatient follow-up with pulmonary Physical Optics Teacher in of the case. GI team on the case (both GI and nephrology cleared the patient for discharge) cardiology has signed off No code Prognosis is guarded. Patient is high-risk for decompensation or complication. Long-term prognosis is also guarded. Patient high risk for readmission Patient does continue with indwelling Ruiz catheter for retention and will initiate Flomax and possible trial void in the outpatient setting with urology follow-up Hemoglobin 6.9 and will continue unit with follow-up labs. Nephrology recommending follow-up labs to monitor sodium and kidney functions Possible discharge in 24 hours The impression and plan of care has been dictated by Danielle Olmos, Nurse Practitioner as directed. Dr. Ildefonso MD I have performed a history and examination and MDM of this patient, discussed the same with the dictator, and agree with the dictator's assessment and plan as written ,documented as a scribe. Based on total visit time, I have performed more than 50% of the visit. Objective - Vital Signs Vital signs: Vital Signs Temp 98.1 F 11/29/22 03:47 Pulse 71 11/29/22 03:47 Resp 17 11/29/22 03:47 BP 130/66 11/29/22 03:47 Pulse Ox 98 11/29/22 03:47 FiO2 28 11/17/22 08:36 Intake & Output 11/28/22 11/28/22 11/29/22 06:59 18:59 06:59 Intake Total 1026 Output Total 501 375 Balance -501 651 Weight 83.7 kg Intake: Oral 716 Blood Product 310 Rc Pheresis As-3 Unit 310 [id number] Output: Urine 500 375 Stool 1 Other: Voiding Method Indwelling Catheter Indwelling Catheter Indwelling Catheter # Bowel Movements 1 - Labs CBC & Chem 7: 11/28/22 11:09 11/28/22 17:59 Labs: Abnormal Lab Results - Last 24 Hours (Table) 11/28/22 11/28/22 11/28/22 Range/Units 05:57 11:09 11:09 WBC 17.8 H (3.8-10.6) k/uL RBC 1.86 L (4.30-5.90) m/uL Hgb 6.9 L* (13.0-17.5) gm/dL Hct 21.3 L (39.0-53.0) % MCV 114.3 H (80.0-100.0) fL MCH 37.2 H (25.0-35.0) pg RDW 22.3 H (11.5-15.5) % Plt Count 68 L (150-450) k/uL Macrocytosis Marked A Sodium 123 L (137-145) mmol/L Chloride 94 L (98-107) mmol/L Carbon Dioxide (22-30) mmol/L BUN 54 H (9-20) mg/dL Creatinine 2.17 H (0.66-1.25) mg/dL Glucose 222 H (74-99) mg/dL POC Glucose (mg/dL) 216 H (70-110) mg/dL Calcium 7.3 L (8.4-10.2) mg/dL Ur Random Sodium (40-220) mmol/L Crossmatch 11/28/22 11/28/22 11/28/22 Range/Units 11:24 12:30 16:30 WBC (3.8-10.6) k/uL RBC (4.30-5.90) m/uL Hgb (13.0-17.5) gm/dL Hct (39.0-53.0) % MCV (80.0-100.0) fL MCH (25.0-35.0) pg RDW (11.5-15.5) % Plt Count (150-450) k/uL Macrocytosis Sodium (137-145) mmol/L Chloride (98-107) mmol/L Carbon Dioxide (22-30) mmol/L BUN (9-20) mg/dL Creatinine (0.66-1.25) mg/dL Glucose (74-99) mg/dL POC Glucose (mg/dL) 272 H 316 H (70-110) mg/dL Calcium (8.4-10.2) mg/dL Ur Random Sodium (40-220) mmol/L Crossmatch See Detail 11/28/22 11/28/22 11/28/22 Range/Units 17:59 20:03 21:45 WBC (3.8-10.6) k/uL RBC (4.30-5.90) m/uL Hgb (13.0-17.5) gm/dL Hct (39.0-53.0) % MCV (80.0-100.0) fL MCH (25.0-35.0) pg RDW (11.5-15.5) % Plt Count (150-450) k/uL Macrocytosis Sodium 122 L (137-145) mmol/L Chloride 92 L (98-107) mmol/L Carbon Dioxide 21 L (22-30) mmol/L BUN 55 H (9-20) mg/dL Creatinine 2.00 H (0.66-1.25) mg/dL Glucose 252 H (74-99) mg/dL POC Glucose (mg/dL) 295 H (70-110) mg/dL Calcium 7.5 L (8.4-10.2) mg/dL Ur Random Sodium <20 L (40-220) mmol/L Crossmatch
[2022-11-29 06:05] LABS: Glucose,Whole Blood 201 mg/dL (70-110)
[2022-11-29] MEDS: PANTOPRAZOLE 40 MG TABLET PO SCH (06:24)
[2022-11-29] MEDS: INSULIN ASPART (NovoLOG) 100 UNIT/ML VIAL SQ SCH ×4 (06:24→20:50)
[2022-11-29 08:15] LABS: Anisocytosis Moderate; HGB 7.5 gm/dL (13.0-17.5); Hypochromasia Slight; MCH 35.8 pg (25.0-35.0); MCHC 32.5 g/dL (31.0-37.0); MCV 109.9 fL (80.0-100.0); Macrocytosis Marked; Mean Platelet Volume 11.7; Poikilocytosis Slight; RBC 2.09 m/uL (4.30-5.90); RDW 23.9 % (11.5-15.5); WBC 19.9 k/uL (3.8-10.6)
[2022-11-29 08:17] LABS: Platelet Count 61 k/uL (150-450)
[2022-11-29 08:38] LABS: African American GFR (CKD) 39 (>60 ml/min/1.73 sqM); Anion Gap 7 mmol/L; Blood Urea Nitrogen 52 mg/dL (9-20); Calcium 7.5 mg/dL (8.4-10.2); Carbon Dioxide 21 mmol/L (22-30); Chloride 95 mmol/L (98-107); Glucose 147 mg/dL (74-99); Magnesium 2.4 mg/dL (1.6-2.3); Non-African American GFR(CKD) 34 (>60 ml/min/1.73 sqM); Sodium 123 mmol/L (137-145)
[2022-11-29] MEDS: MULTIVITAMINS, THERA 1 EACH TAB PO SCH (08:45)
[2022-11-29] MEDS: ATORVASTATIN 40 MG TAB PO SCH (08:46)
[2022-11-29] MEDS: predniSONE 10 MG TAB PO SCH (08:46)
[2022-11-29] MEDS: APIXABAN 2.5 MG TABLET PO SCH ×2 (08:46→20:48)
[2022-11-29] MEDS: POTASSIUM CHLORIDE ER 20 MEQ TAB.ER PO SCH (08:46)
[2022-11-29] MEDS: LACTULOSE 20 GM/30 ML CUP PO SCH ×2 (08:46→20:48)
[2022-11-29] MEDS: FERROUS SULFATE 325 MG TAB PO SCH (08:46)
[2022-11-29] MEDS: THIAMINE 100 MG/ML 2 ML VIAL IVP SCH (08:51)
[2022-11-29] MEDS: BUDESONIDE 0.5 MG/2 ML NEBU INHALATION SCH ×2 (09:43→20:47)
[2022-11-29] MEDS ORDERED: SODIUM CHLORIDE TAB 1 GM TAB PO STA (09:43)
[2022-11-29] MEDS: IPRATROPIUM-ALBUTEROL 3 ML NEB INHALATION SCH ×3 (09:44→20:47)
--- NOTE | 2022-11-29 11:06 | P.PN ---
Subjective Patient is seen for follow-up for acute kidney injury. Currently off of diuretics and IV fluids. Good UOP Serum creatinine at 1.7- 1.9 mg/dL Sodium had dropped to 122 -123 Sodium decreased after bolus of saline. Following which patient received a dose of Samsca. This morning sodium is not further improvement. Urine sodium less than 20 and urine osmolality of 339. No complaints of shortness of breath. Status post packed RBCs transfusion yesterday for hemoglobin 6.9. It to 7.5 g/dL today. Objective - Vital Signs Vital signs: Vital Signs Temp 97.9 F 11/29/22 08:36 Pulse 64 11/29/22 09:59 Resp 18 11/29/22 08:36 BP 110/60 11/29/22 08:36 Pulse Ox 98 11/29/22 09:44 FiO2 28 11/17/22 08:36 Intake & Output 11/28/22 11/29/22 11/29/22 18:59 06:59 18:59 Intake Total 1026 180 Output Total 375 1000 Balance 651 -1000 180 Weight 90.2 kg Intake: Oral 716 180 Blood Product 310 Rc Pheresis As-3 Unit 310 [id number] Output: Urine 375 1000 Other: Voiding Method Indwelling Catheter Indwelling Catheter Urinal # Bowel Movements 1 - Exam Patient is awake. Sitting up in bed. Able to communicate. Mentation at baseline Alert oriented 3 Examination of the heart S1 and S2 Examination of the lungs bilateral breath sounds are heard Abdomen is soft nontender Examination lower extremities shows 2+ edema - Labs CBC & Chem 7: 11/29/22 07:42 11/29/22 07:42 Labs: Abnormal Lab Results - Last 24 Hours (Table) 11/28/22 11/28/22 11/28/22 Range/Units 11:09 11:09 11:24 WBC 17.8 H (3.8-10.6) k/uL RBC 1.86 L (4.30-5.90) m/uL Hgb 6.9 L* (13.0-17.5) gm/dL Hct 21.3 L (39.0-53.0) % MCV 114.3 H (80.0-100.0) fL MCH 37.2 H (25.0-35.0) pg RDW 22.3 H (11.5-15.5) % Plt Count 68 L (150-450) k/uL Macrocytosis Marked A Sodium 123 L (137-145) mmol/L Chloride 94 L (98-107) mmol/L Carbon Dioxide (22-30) mmol/L BUN 54 H (9-20) mg/dL Creatinine 2.17 H (0.66-1.25) mg/dL Glucose 222 H (74-99) mg/dL POC Glucose (mg/dL) 272 H (70-110) mg/dL Calcium 7.3 L (8.4-10.2) mg/dL Magnesium (1.6-2.3) mg/dL Ur Random Sodium (40-220) mmol/L Crossmatch 11/28/22 11/28/22 11/28/22 Range/Units 12:30 16:30 17:59 WBC (3.8-10.6) k/uL RBC (4.30-5.90) m/uL Hgb (13.0-17.5) gm/dL Hct (39.0-53.0) % MCV (80.0-100.0) fL MCH (25.0-35.0) pg RDW (11.5-15.5) % Plt Count (150-450) k/uL Macrocytosis Sodium 122 L (137-145) mmol/L Chloride 92 L (98-107) mmol/L Carbon Dioxide 21 L (22-30) mmol/L BUN 55 H (9-20) mg/dL Creatinine 2.00 H (0.66-1.25) mg/dL Glucose 252 H (74-99) mg/dL POC Glucose (mg/dL) 316 H (70-110) mg/dL Calcium 7.5 L (8.4-10.2) mg/dL Magnesium (1.6-2.3) mg/dL Ur Random Sodium (40-220) mmol/L Crossmatch See Detail 11/28/22 11/28/22 11/29/22 Range/Units 20:03 21:45 06:04 WBC (3.8-10.6) k/uL RBC (4.30-5.90) m/uL Hgb (13.0-17.5) gm/dL Hct (39.0-53.0) % MCV (80.0-100.0) fL MCH (25.0-35.0) pg RDW (11.5-15.5) % Plt Count (150-450) k/uL Macrocytosis Sodium (137-145) mmol/L Chloride (98-107) mmol/L Carbon Dioxide (22-30) mmol/L BUN (9-20) mg/dL Creatinine (0.66-1.25) mg/dL Glucose (74-99) mg/dL POC Glucose (mg/dL) 295 H 201 H (70-110) mg/dL Calcium (8.4-10.2) mg/dL Magnesium (1.6-2.3) mg/dL Ur Random Sodium <20 L (40-220) mmol/L Crossmatch 11/29/22 11/29/22 Range/Units 07:42 07:42 WBC 19.9 H (3.8-10.6) k/uL RBC 2.09 L (4.30-5.90) m/uL Hgb 7.5 L (13.0-17.5) gm/dL Hct 23.0 L (39.0-53.0) % MCV 109.9 H (80.0-100.0) fL MCH 35.8 H (25.0-35.0) pg RDW 23.9 H (11.5-15.5) % Plt Count 61 L (150-450) k/uL Macrocytosis Marked A Sodium 123 L (137-145) mmol/L Chloride 95 L (98-107) mmol/L Carbon Dioxide 21 L (22-30) mmol/L BUN 52 H (9-20) mg/dL Creatinine 1.81 H (0.66-1.25) mg/dL Glucose 147 H (74-99) mg/dL POC Glucose (mg/dL) (70-110) mg/dL Calcium 7.5 L (8.4-10.2) mg/dL Magnesium 2.4 H (1.6-2.3) mg/dL Ur Random Sodium (40-220) mmol/L Crossmatch Assessment and Plan Assessment: 1. Acute kidney injury cardiorenal, renal function stable. UA is benign. Serum creatinine staying at about 1.7 - 1.8 mg/dL 2. Chronic kidney disease NKF stage III a secondary to nephrosclerosis with baseline creatinine 1.2-1.3 mg/dL 3. Severe pulmonary hypertension with moderate to severe mitral regurgitation and chronic lower extremity edema 4. Acute on chronic CHF with preserved ejection fraction 5. Coronary artery disease with history of previous coronary stenting 6. Metabolic alkalosis secondary to diuresis, improved with hydration. 7. Hypernatremia associated with free water deficit. Status post D5W 8. Ileus with NG tube, being followed by surgery. NG tube is out 9. Hypokalemia associated with GI fluid loss, currently being replaced 10. Hyponatremia after correction of hypernatremia. Appears hypervolemic today. Plan: Status post sodium chloride tablet this morning. I will give a dose of IV Lasix and recheck sodium this afternoon.
[2022-11-29] MEDS ORDERED: FUROSEMIDE 10 MG/ML 2 ML VIAL IV ONE (11:30)
[2022-11-29 11:45] LABS: Glucose,Whole Blood 223 mg/dL (70-110)
--- NOTE | 2022-11-29 12:21 | P.PN ---
Subjective Progress Note Date: 11/29/22 CHIEF COMPLAINT: Shortness of breath HISTORY OF PRESENT ILLNESS: Patient denies any abdominal pain. He has been having bowel movements. Denies any nausea or vomiting. Tolerating regular diet. He reports that his abdomen is his normal size. He's sitting in bedside chair. He did receive a unit of blood yesterday for hemoglobin of 6.9. Denies any blood in his stools or black stools. Hemoglobin today is 7.5. WBC is 19.9 platelets 61 sodium is 119 potassium is 4.0 creatinine 1.81. Patient did have a slight audible wheeze negative cleared with cough. Denies any shortness of breath. Afebrile PHYSICAL EXAM: VITAL SIGNS: Reviewed. GENERAL: Well-developed in no acute distress. ABDOMEN: Soft. Distended. Nontender NEUROLOGIC: Patient is awake and alert ASSESSMENT: 1. Colonic ileus 2. Appendicitis ruled out. No evidence of acute appendicitis on CAT scan. Fluid around the appendix is likely ascites 3. Leukocytosis 4. hepatic encephalopathy with alcoholic cirrhosis 5. CHF exacerbation 6. Hypokalemia improved 7. Hyponatremia 8. Anemia PLAN: -Continue to correct electrolytes -Hyponatremia management per nephrology -Continue supportive care -Continue regular diet -Encourage patient to increase activity level -No plans for any surgical intervention Physician Supervisor Steno Pool note has been reviewed by physician. Signing provider agrees with the documented findings, assessment, and plan of care. Objective - Vital Signs Vital signs: Vital Signs Temp 97.9 F 11/29/22 08:36 Pulse 64 11/29/22 09:59 Resp 18 11/29/22 08:36 BP 110/60 11/29/22 08:36 Pulse Ox 98 11/29/22 09:44 FiO2 28 11/17/22 08:36 Intake & Output 11/28/22 11/29/22 11/29/22 18:59 06:59 18:59 Intake Total 1026 180 Output Total 375 1000 100 Balance 651 -1000 80 Weight 90.2 kg Intake: Oral 716 180 Blood Product 310 Rc Pheresis As-3 Unit 310 [id number] Output: Urine 375 1000 100 Other: Voiding Method Indwelling Catheter Indwelling Catheter Urinal # Voids 1 # Bowel Movements 1 - Labs CBC & Chem 7: 11/29/22 07:42 11/29/22 11:44 Labs: Abnormal Lab Results - Last 24 Hours (Table) 11/28/22 11/28/22 11/28/22 Range/Units 12:30 16:30 17:59 WBC (3.8-10.6) k/uL RBC (4.30-5.90) m/uL Hgb (13.0-17.5) gm/dL Hct (39.0-53.0) % MCV (80.0-100.0) fL MCH (25.0-35.0) pg RDW (11.5-15.5) % Plt Count (150-450) k/uL Macrocytosis Sodium 122 L (137-145) mmol/L Chloride 92 L (98-107) mmol/L Carbon Dioxide 21 L (22-30) mmol/L BUN 55 H (9-20) mg/dL Creatinine 2.00 H (0.66-1.25) mg/dL Glucose 252 H (74-99) mg/dL POC Glucose (mg/dL) 316 H (70-110) mg/dL Calcium 7.5 L (8.4-10.2) mg/dL Magnesium (1.6-2.3) mg/dL Ur Random Sodium (40-220) mmol/L Crossmatch See Detail 11/28/22 11/28/22 11/29/22 Range/Units 20:03 21:45 06:04 WBC (3.8-10.6) k/uL RBC (4.30-5.90) m/uL Hgb (13.0-17.5) gm/dL Hct (39.0-53.0) % MCV (80.0-100.0) fL MCH (25.0-35.0) pg RDW (11.5-15.5) % Plt Count (150-450) k/uL Macrocytosis Sodium (137-145) mmol/L Chloride (98-107) mmol/L Carbon Dioxide (22-30) mmol/L BUN (9-20) mg/dL Creatinine (0.66-1.25) mg/dL Glucose (74-99) mg/dL POC Glucose (mg/dL) 295 H 201 H (70-110) mg/dL Calcium (8.4-10.2) mg/dL Magnesium (1.6-2.3) mg/dL Ur Random Sodium <20 L (40-220) mmol/L Crossmatch 11/29/22 11/29/22 11/29/22 Range/Units 07:42 07:42 11:43 WBC 19.9 H (3.8-10.6) k/uL RBC 2.09 L (4.30-5.90) m/uL Hgb 7.5 L (13.0-17.5) gm/dL Hct 23.0 L (39.0-53.0) % MCV 109.9 H (80.0-100.0) fL MCH 35.8 H (25.0-35.0) pg RDW 23.9 H (11.5-15.5) % Plt Count 61 L (150-450) k/uL Macrocytosis Marked A Sodium 123 L (137-145) mmol/L Chloride 95 L (98-107) mmol/L Carbon Dioxide 21 L (22-30) mmol/L BUN 52 H (9-20) mg/dL Creatinine 1.81 H (0.66-1.25) mg/dL Glucose 147 H (74-99) mg/dL POC Glucose (mg/dL) 223 H (70-110) mg/dL Calcium 7.5 L (8.4-10.2) mg/dL Magnesium 2.4 H (1.6-2.3) mg/dL Ur Random Sodium (40-220) mmol/L Crossmatch 11/29/22 Range/Units 11:44 WBC (3.8-10.6) k/uL RBC (4.30-5.90) m/uL Hgb (13.0-17.5) gm/dL Hct (39.0-53.0) % MCV (80.0-100.0) fL MCH (25.0-35.0) pg RDW (11.5-15.5) % Plt Count (150-450) k/uL Macrocytosis Sodium 119 L* (137-145) mmol/L Chloride (98-107) mmol/L Carbon Dioxide (22-30) mmol/L BUN (9-20) mg/dL Creatinine (0.66-1.25) mg/dL Glucose (74-99) mg/dL POC Glucose (mg/dL) (70-110) mg/dL Calcium (8.4-10.2) mg/dL Magnesium (1.6-2.3) mg/dL Ur Random Sodium (40-220) mmol/L Crossmatch
--- NOTE | 2022-11-29 12:53 | P.PN ---
Subjective Progress Note Date: 11/29/22 Principal diagnosis: Pulmonary edema. The patient is seen today 11/22/2022 in follow-up on the selective care unit. He is currently awake and alert. Maintaining O2 saturations in the upper 90s on 4 L/m per nasal cannula. He's been afebrile. Hemodynamically stable. Computed tomography scan of the abdomen and pelvis revealed a dilated appendix with gas within the tip. There is some nonspecific surrounding fluid/stranding. Findings could be seen with acute appendicitis. Gas and stool filled dilated colon and rectum without focal transition point suggestive of an colonic ileus. 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 Hepatic cirrhosis with findings suggestive of portal hypertension with trace ascites and splenic collaterals. Right adrenal gland lipid rich adenoma. Nonobstructive bilateral renal calculi. Surgical services are following. Nasogastric tube has been placed. Today's chest x-ray reveals cardiomegaly. Chronic parenchymal changes without new focal airspace opacity, pleural effusion or pneumothorax. Blood cultures revealed no growth. White count 23.9. Hemoglobin 7.5. MCV is 122. Platelet count 73,000. Sodium 136. Potassium 3.1. Bicarb 30. BUN 59. Creatinine 1.74. Glucose 337. He is continued on DuoNeb inhalations, Pulmicort inhalations, prednisone taper. She is on Xifaxan, Zosyn, Levaquin. Lovenox for anticoagulation. The patient is seen today 11/23/2022 in follow-up on the selective care unit. He is awake, alert, oriented. Resting fairly comfortably in bed. Denies any worsening shortness of breath, cough or congestion. Denies any significant abdominal pain. Nasogastric tube remains in place. Chest x-ray reveals cardiomegaly. Chronic parenchymal changes without any new focal airspace opacities, pleural effusion or pneumothorax. He is maintaining good O2 saturations in the upper 90s on 2 L/m per nasal cannula. He is afebrile. Hemodynamically stable. White count 19.6. Hemoglobin 7.5. Platelets 94,000. Sodium 146. Potassium 2.9. Bicarb 33. BUN 65. Creatinine 1.94. Glucose 137. He remains on rifaximin and Zosyn. Continued on bronchodilators. Patient is seen today 11/24/2022 in follow-up on the selective care unit. He is resting comfortably in bed. He remains awake, alert, oriented. His is at the bedside. He is having bowel movements. Nasogastric tube remains in place. Blood cultures revealed no growth. Blood sugar 156. He is continued on DuoNeb inhalations. Prednisone taper. Remains on Zosyn. Remains on rifaximin. Anticoagulated with Lovenox. Continued on D5W at 50 MLS per hour. The patient is seen today 11/26/2022 in follow-up on the selective care unit. He remains awake and alert oriented. His is at the bedside. He is resting comfortably in bed. He is having bowel movements. Nasogastric tube has been discontinued. He is tolerating a liquid diet. Denies any abdominal discomfort. No nausea or vomiting. Blood cultures revealed no growth in blood glucose 174. He remains on DuoNeb inhalations, Pulmicort inhalations. Prednisone taper. Antibiotics in the form of Zosyn. Lovenox for anticoagulation. Progress note dated 11/27/2022. The patient is seen today in room 372. The patient apparently will not be discharged today, because his hemoglobin was 7.2, and his sodium was 122. The patient's on room air. The patient is not receiving any IV fluids. Clinically, the patient looks very safe, and could be discharged home from the pulmonary standpoint. White count is 19.8, hemoglobin 7.2, hematocrit 21.4, and platelet count of 72,000. Sodium is 122, potassium 4.1, chlorides 92, CO2 26, BUN 52, and creatinine 2.08. Blood cultures are negative. Progress note dated 11/28/2022. The patient is seen today in room 372. The patient was not discharged yesterday, because of a low hemoglobin of 7.2 and a low sodium of 123. The patient clinically is stable. He is on room air. He is not receiving any IV fluids and he was waiting for his lab results today. He has no new complaints today. Labs, currently pending at the time of this dictation. Blood cultures were negative. Progress note dated 11/29/2022. The patient is seen today in room 372. Sitting in a chair next to his bed. His is in the room with him. Yesterday, the patient received a unit of blood, because his hemoglobin was 6.9. Today, it 7.5. In addition, the patient's sodium today is 123. He is on room air. He's not receiving any IV fluids. His Ruiz catheter has been removed. He is hoping to be discharged today. White count is 19.9, hemoglobin 7.5, hematocrit 23, and platelet count a 61,000. Sodium 123, potassium 4, chlorides 95, CO2 21, BUN 52, and creatinine 1.81. Blood cultures are all negative. Objective - Vital Signs Vital signs: Vital Signs Temp 97.9 F 11/29/22 08:36 Pulse 72 11/29/22 12:47 Resp 18 11/29/22 08:36 BP 110/60 11/29/22 08:36 Pulse Ox 98 11/29/22 09:44 FiO2 28 11/17/22 08:36 Intake & Output 11/28/22 11/29/22 11/29/22 18:59 06:59 18:59 Intake Total 1026 180 Output Total 375 1000 100 Balance 651 -1000 80 Weight 90.2 kg Intake: Oral 716 180 Blood Product 310 Rc Pheresis As-3 Unit 310 [id number] Output: Urine 375 1000 100 Other: Voiding Method Indwelling Catheter Indwelling Catheter Urinal # Voids 1 # Bowel Movements 1 - Exam No acute distress, oriented 3. Currently on room air. Saturations are 98%. HEENT examination is grossly unremarkable. Neck supple. Full range of motion. No adenopathy thyromegaly or neck vein distention. Cardiovascular examination reveals regular rhythm rate. S1-S2 normal. No S3 or S4. No discernible murmur noted. Heart rate 72 bpm. Lungs reveal clear breath sounds. Breath sounds are equal bilaterally. No adventitious lung sounds including wheezes rhonchi or crackles. Room air saturation is 98%. Abdomen soft bowel sounds are heard. No masses or tenderness. Extremities are intact. No cyanosis clubbing or edema. Skin is without rash or lesion. Neurologic examination is brief but nonfocal. - Labs CBC & Chem 7: 11/29/22 07:42 11/29/22 11:44 Labs: Abnormal Lab Results - Last 24 Hours (Table) 11/28/22 11/28/22 11/28/22 Range/Units 12:30 16:30 17:59 WBC (3.8-10.6) k/uL RBC (4.30-5.90) m/uL Hgb (13.0-17.5) gm/dL Hct (39.0-53.0) % MCV (80.0-100.0) fL MCH (25.0-35.0) pg RDW (11.5-15.5) % Plt Count (150-450) k/uL Macrocytosis Sodium 122 L (137-145) mmol/L Chloride 92 L (98-107) mmol/L Carbon Dioxide 21 L (22-30) mmol/L BUN 55 H (9-20) mg/dL Creatinine 2.00 H (0.66-1.25) mg/dL Glucose 252 H (74-99) mg/dL POC Glucose (mg/dL) 316 H (70-110) mg/dL Calcium 7.5 L (8.4-10.2) mg/dL Magnesium (1.6-2.3) mg/dL Ur Random Sodium (40-220) mmol/L Crossmatch See Detail 11/28/22 11/28/22 11/29/22 Range/Units 20:03 21:45 06:04 WBC (3.8-10.6) k/uL RBC (4.30-5.90) m/uL Hgb (13.0-17.5) gm/dL Hct (39.0-53.0) % MCV (80.0-100.0) fL MCH (25.0-35.0) pg RDW (11.5-15.5) % Plt Count (150-450) k/uL Macrocytosis Sodium (137-145) mmol/L Chloride (98-107) mmol/L Carbon Dioxide (22-30) mmol/L BUN (9-20) mg/dL Creatinine (0.66-1.25) mg/dL Glucose (74-99) mg/dL POC Glucose (mg/dL) 295 H 201 H (70-110) mg/dL Calcium (8.4-10.2) mg/dL Magnesium (1.6-2.3) mg/dL Ur Random Sodium <20 L (40-220) mmol/L Crossmatch 11/29/22 11/29/22 11/29/22 Range/Units 07:42 07:42 11:43 WBC 19.9 H (3.8-10.6) k/uL RBC 2.09 L (4.30-5.90) m/uL Hgb 7.5 L (13.0-17.5) gm/dL Hct 23.0 L (39.0-53.0) % MCV 109.9 H (80.0-100.0) fL MCH 35.8 H (25.0-35.0) pg RDW 23.9 H (11.5-15.5) % Plt Count 61 L (150-450) k/uL Macrocytosis Marked A Sodium 123 L (137-145) mmol/L Chloride 95 L (98-107) mmol/L Carbon Dioxide 21 L (22-30) mmol/L BUN 52 H (9-20) mg/dL Creatinine 1.81 H (0.66-1.25) mg/dL Glucose 147 H (74-99) mg/dL POC Glucose (mg/dL) 223 H (70-110) mg/dL Calcium 7.5 L (8.4-10.2) mg/dL Magnesium 2.4 H (1.6-2.3) mg/dL Ur Random Sodium (40-220) mmol/L Crossmatch 11/29/22 Range/Units 11:44 WBC (3.8-10.6) k/uL RBC (4.30-5.90) m/uL Hgb (13.0-17.5) gm/dL Hct (39.0-53.0) % MCV (80.0-100.0) fL MCH (25.0-35.0) pg RDW (11.5-15.5) % Plt Count (150-450) k/uL Macrocytosis Sodium 119 L* (137-145) mmol/L Chloride (98-107) mmol/L Carbon Dioxide (22-30) mmol/L BUN (9-20) mg/dL Creatinine (0.66-1.25) mg/dL Glucose (74-99) mg/dL POC Glucose (mg/dL) (70-110) mg/dL Calcium (8.4-10.2) mg/dL Magnesium (1.6-2.3) mg/dL Ur Random Sodium (40-220) mmol/L Crossmatch Assessment and Plan Assessment: Acute hepatic encephalopathy, suspect liver cirrhosis secondary to remote alcohol abuse. Computed tomography scan of the abdomen and pelvis revealed a dilated appendix with gas within the tip. There is some nonspecific surrounding fluid/stranding. Findings could be seen with acute appendicitis. Gas and stool filled dilated colon and rectum without focal transition point suggestive of an colonic ileus. 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 Hepatic cirrhosis with findings suggestive of portal hypertension with trace ascites and splenic collaterals. Right adrenal gland lipid rich adenoma. Nonobstructive bilateral renal calculi. Surgical services are following. Nasogastric tube has been placed and subsequently removed. Tolerating a liquid diet. Altered mental status secondary to above, acute metabolic toxic encephalopathy, improved. Acute diastolic congestive heart failure. Acute on chronic kidney disease. Acute metabolic alkalosis secondary to diuretics. Moderate severe pulmonary hypertension. Moderate severe mitral regurgitation. History of mild COPD. Chronic atrial fibrillation. History of colonic polyps. Type 2 diabetes with diabetic nephropathy. History of CVA without any residual deficit. Plan: Plan dated 11/27/2022. The patient's overall pulmonary status is very stable. He's on room air. NG tube is been removed. The patient could be considered for discharge, but tells me he has not been discharged because his hemoglobin is only 7.2, sodium is 122. Those will be repeated. Clinically he is very stable. Labs, x-rays, and medications are reviewed. The patient does continue on Zosyn. Prognosis is guarded. The patient is a DO NOT RESUSCITATE patient. Plan dated 11/28/2022. The patient's overall pulmonary status is very stable. He's on room air. NG t ube is been removed. The patient was not discharged yesterday, because his sodium was 123, and his hemoglobin was 7.2. Labs, currently still pending from today. The patient continues on Zosyn. The patient is a DO NOT RESUSCITATE patient. Clinically, he is very stable. He has no specific complaints. From the pulmonary standpoint, the patient could be discharged when other physicians and consultants, agree. Plan dated 11/29/2022. The patient's hemoglobin was 6.9 yesterday, so he received 1 unit of packed red blood cells. The patient's sodium level was 123. We will continue to follow t he patient and make recommendations along. The patient is hoping to be discharged soon. Clinically, he appears very stable. He sitting in a chair next to his bed. He denies any shortness of breath, cough, wheezing, chest tightness, or phlegm production. Labs, x-rays, and all medications are rev iewed. Time with Patient: Less than 30
--- NOTE | 2022-11-29 14:43 | XR ---
EXAMINATION TYPE: XR chest 1V portable DATE OF EXAM: 11/29/2022 COMPARISON: 11/23/2022 HISTORY: Pain TECHNIQUE: Single frontal view of the chest is obtained. FINDINGS: Elevated hemidiaphragms with bilateral lower lobe infiltrate and small left effusion. Coar sened interstitium with no pneumothorax. Hypertrophic changes of the spine, atherosclerotic change ao rta. Arthropathy of the shoulders. The heart is enlarged. Large lucency beneath the right hemidiaphragm suspicious for free intraperitoneal air. IMPRESSION: 1. Findings are suspicious for free intraperitoneal air within the abdomen. Report was called to the Patient's nurse at 2:39 PM 11/29/2022. 2. Lower lobe infiltrate and small effusion correlate for mild venous congestion.
[2022-11-29 15:59] LABS: African American GFR (CKD) 42 (>60 ml/min/1.73 sqM); Anion Gap 8 mmol/L; Blood Urea Nitrogen 53 mg/dL (9-20); Calcium 7.4 mg/dL (8.4-10.2); Carbon Dioxide 18 mmol/L (22-30); Chloride 93 mmol/L (98-107); Glucose 233 mg/dL (74-99); Non-African American GFR(CKD) 36 (>60 ml/min/1.73 sqM)
[2022-11-29 16:07] LABS: Sodium 119 mmol/L (137-145)
[2022-11-29 16:40] LABS: Glucose,Whole Blood 286 mg/dL (70-110)
[2022-11-29 18:14] LABS: Glucose,Whole Blood 271 mg/dL (70-110)
[2022-11-29] MEDS ORDERED: NALOXONE 0.4 MG/ML 1 ML VIAL IV PRN (18:26)
[2022-11-29] MEDS: SODIUM CHLORIDE 3%(HYPERTONIC) 500 ML IV SCH (18:26)
[2022-11-29] MEDS: TAMSULOSIN 0.4 MG CAP.ER.24H PO SCH (20:48)
[2022-11-29 20:51] LABS: Glucose,Whole Blood 215 mg/dL (70-110)
[2022-11-30] MEDS: DORZOLAMIDE-TIMOLOL 2.23%/0.68 10ML BTL BOTH EYES SCH ×2 (01:34→20:49)
[2022-11-30 02:08] LABS: African American GFR (CKD) 47 (>60 ml/min/1.73 sqM); Anion Gap 5 mmol/L; Blood Urea Nitrogen 54 mg/dL (9-20); Calcium 7.5 mg/dL (8.4-10.2); Carbon Dioxide 21 mmol/L (22-30); Chloride 96 mmol/L (98-107); Glucose 157 mg/dL (74-99); Non-African American GFR(CKD) 40 (>60 ml/min/1.73 sqM); Potassium 4.4 mmol/L (3.5-5.1); Sodium 122 mmol/L (137-145)
[2022-11-30 03:20] LABS: Anisocytosis Moderate; Basophils # (A) 0.1 k/uL (0-0.2); Basophils % (A) 0 %; Eosinophils # (A) 0.2 k/uL (0-0.7); Eosinophils % (A) 1 %; HGB 7.3 gm/dL (13.0-17.5); Hypochromasia Slight; Lymphocytes # (A) 0.8 k/uL (1.0-4.8); Lymphocytes % (A) 5 %; MCH 36.7 pg (25.0-35.0); MCHC 33.3 g/dL (31.0-37.0); MCV 110.5 fL (80.0-100.0); Macrocytosis Marked; Mean Platelet Volume 13.3; Monocytes # (A) 0.6 k/uL (0-1.0); Monocytes % (A) 4 %; Neutrophils # (A) 14.3 k/uL (1.3-7.7); Neutrophils % (A) 88 %; Poikilocytosis Slight; RBC 1.99 m/uL (4.30-5.90); RDW 23.2 % (11.5-15.5); WBC 16.3 k/uL (3.8-10.6)
[2022-11-30 03:35] LABS: Platelet Count 49 k/uL (150-450)
[2022-11-30 04:28] LABS: Polychromasia Present
[2022-11-30 04:29] LABS: RBC Fragments Present
--- NOTE | 2022-11-30 05:39 | P.PN ---
Subjective Progress Note Date: 11/29/22 This is a pleasant 82 years old male with multiple medical problems including history of heart failure presents with worsening dyspnea and leg swelling on and he was found with fluid overload secondary to diastolic CHF, echocardiogram from 09/2022 showing ejection fraction 55%. Currently cardiolo lucio signed off the case and patient being monitored closely by nephrology team. He remains on Lasix drip 10 mg/h, creatinine 1.4, 1.6 and 2.1. Discuss case with nephrology team who recommended to keep the Lasix drip for now. Pulmonary team on the case for mild COPD exacerbation and currently on a prednisone 40 mg. Hemoglobin 7.8. 11/17/2022 patient CHF and fluid overload improving, his oxygen saturation is acceptable and wants only with minimal crepitation mainly on the right side however he still have 2+ leg edema. However patient developed more alkalosis therefore Lasix drip was stopped and started on torsemide while the dose for Zaroxolyn was lowered to 2.5 mg. Creatinine is stable at 2.0 compared to 1.4 on admission. However patient become more confused today most likely secondary to metabolic encephalopathy and toxic encephalopathy. No recent fall. Patient fell about 3 days ago at that time CT of the brain was negative. Workup showing ammonia level is high at 255 and lactulose is added. We will continue neuro check and consider repeat CT of the brain condition worsens Pressure applied with sponge gel to bleeding superficial ulcer on the right forearm. 11/18/2022 Patient still confused and sleepy this morning from yesterday he got worse significantly. There is no new symptoms, he slipped with the And tachycardic. He had low-grade temperature of 99.8. Leukocytosis worsened 10.5 up to 17,000. Chest x-ray and urinalysis were repeated they were negative for acute process. Risks of flaps looks stable. Creatinine 1.9 which is a stable but higher than baseline because he was on Lasix drip. The sixth rib. Now, torsemide is only once daily. Also patient started on normal saline 75 mL/h Patient continued on prednisone 40 mg once a Eliquis area We will send blood culture and check liver ultrasound as liver enzymes and bilirubin only mildly elevated although this is not very new. Plan discussed with staff and bedside nurse more than once. 11/19/2022 Patient slightly improving regarding his mentation, he still confused sleepy and does not respond to verbal or tactile stimuli but he opens his eyes from moving in bed to some degree which she was not doing its yesterday. His ammonia level is elevated yesterday to 55 and liver ultrasound showing possible liver cirrhosis which is most likely related to alcoholic liver cirrhosis. GI team. He is started on lactulose and ammonia level improved and 48. Also he remains on normal saline at 50 mL/h, alert from 75 mm/h for acute kidney injury and metabolic abnormalities including contraction alkalosis. Check labs tomorrow 11/20/2022 Patient is more awake and interactive significantly better than yesterday and he can answer some questions but still confused and not quite back to his baseline. However patient denies any pain or specific symptoms. He has frequent bowel movements. GI team on the case for his hepatic encephalopathy and his lactulose dose was increased to 30 mg 3 times a day and rifaximin is added. Sodium 148 and patient started on D5 W Creatinine improving down to 1.6. Patient remains on prednisone 40 mg 11/21/2022 Patient today sitting up in bed with sitter at bedside for safety, patient still little confused to the surrounding but improved compared to yesterday. Patient is not eating well he starts complaining from abdominal pain and tenderness today,(yesterday his abdomen was not tender on exam) on exam he had distention and tenderness periumbilical area, computed tomography scan of the abdomen and pelvis was obtained showing gas appendix suspicious for appendicitis and dilated bowel with no transitions zone suspicious for ileus. Patient hemodynamically stable and is afebrile, tachycardia improved. Ammonia improved to baseline yesterday. Creatinine is stable and improved down to 1.6. Hemoglobin is stable at 8.1 and he has mild leukocytosis. Patient was started on Zosyn with surgery to consult I discussed the case with Gen. surgery evaluated the patient 11/22/2022 Patient today still tired and lethargic. But he wakes up and talk to family and at bedside and mentation improved since she started on lactulose. However he developed ileus and abdominal tenderness yesterday and there was suspicion of gas and the appendix suspicious for acute appendicitis, I discussed the case with surgery team and Dr. Begum we are not sure if this is a case of acute appendicitis however it is not entirely excluded or abdominal sepsis especially in view of his abdominal tenderness ileus and abdominal distention. Patient is not able to eat. NG tube was placed in the morning but no output. His labs showing worsening leukocytosis up to 23,000, hemoglobin slightly less 7.5, platelets slightly less at 70 3K, creatinine is slightly up 1.7. Because of this was started on Zosyn yesterday for covering gram-negative and an aerobic microorganisms and we are going to add Levaquin intravenously for better gram-negative coverage given his worsening situation area Of note ammonia level down to 11 and sodium level improved to normal at 136 today. He is hemodynamically stable and afebrile. He was started on normal saline 50 mL/h. Also continued on prednisone 40 mg, rifaximin 550 mg which is another antibiotic. He is still on lactulose 30 g and breathing treatment I talked to the at bedside that's is a very good surgical candidate if surgical intervention is warranted given his a newly diagnosed liver cirrhosis and decompensated liver function Avalide verbalized understanding and acceptance this information. Also she understands that his prognosis is very guarded. Patient is high-risk for deterioration despite treatment. And I told the even if his 5 this episode given his multiple progressive problems with the complication make his long-term prognosis poor as well. She verbalized understanding and acceptance. Currently patient already no good Diuretics are held Alk phos was held Discussed with staff 11/23/2022 patient today showed drastic improvement in his mentation that his back to baseline fully awake and oriented, still feels tired overall and generally He still have NG tube in a Place and hemocculted up twice to has to be inserted, draining dark brown discharge. About 100 mL in the bag. Abdominal distention also less abdominal tenderness is the severe compared to yesterday He had some very small bowel movement. But they denies chest pain or dyspnea He remains on D5W at 50 mL/h. Also remains on antibiotic with Zosyn and rifaximin, home dose of all liquids, prednisone 40 mg and lactulose 11/24/2022 Since yesterday's mentation is starts improving and today he is even more awake and alert back to baseline as per at bedside. NG tube in place with dark aspirate, less than 100 mL he ended bag. No abdominal pain or tenderness, abdominal distention is improved. He had several bowel movements. Creatinine is stable at 1.8. Platelets 94, hemoglobin same as 7.5, and WBC trending down to 19,000. He remains on Lovenox 60 mg, prednisone 40 mg, Lasix was discontinued several days ago and currently is on fluid restriction 11/25/2022 Patient sitting in bed comfortable, mentation is at baseline, at bedside which confirms this. Patient abdominal distention is improving. He had NG tube which is taken TODAY by mistake, however with improvement with abdominal distention and abdominal pain patient is a started on liquid diet today. Kidney function improved down to 1.7, sodium 140, patient remains on D5W at 50 mL per hour. Low potassium 2.9. And replace per protocol and follow closely. Patient is having 4-5 bowel movements which helped him regarding his hepatic encephalopathy with his improved Patient also remains on a prednisone 40 mg COPD exacerbation. Yulia is in hold and currently is taking Lovenox therapeutic dose. Today I discussed medical problems and plan with the patient and at bedside and all questions answered to her satisfaction. We will lower his prednisone to 30 mg daily from tomorrow, he was taken. There is a 40 mg more than a week 11/26/2022 Patient is doing well today, his pleasant relaxed comfortable sitting in chair with no complaint. Denies any complaints stating that he is back to baseline creatinine is mentation. No chest pain abdominal pain no vomiting. No urinary complaints. He is hemodynamically stable possible trial on room air Labs also stable, he has stopped leukocytosis of 20,000 but this is thought secondary to steroid effect and is stable. No fever or other signs of infection. Already patient received antibiotics and currently he is asymptomatic. Hemoglobin is stable at 7.6 and we change his Lovenox back to his home dose of leg was 2.5 mg twice a day. Platelets also stable at 91,000. Creatinine is stable at 1.8. Patient is having regular bowel movement about 2-4 each day as he told me. No abdominal pain. He Liquid Diet and Advanced a 2 Regular Diet. And If He Tolerates That Well He Would Be Considered for Discharge Tomorrow Physical Therapist Evaluated Him Today and the Recommended Home with Home Care. Patient Remains on D5W Today. Lactulose 30 Mg Twice a Day. Tomorrow Last Dose of Zosyn and What May Be Changed to Augmentin upon Discharge. And He Is on Prednisone 30 Mg Which Will Be Tapered upon Discharge As Well Possible Discharge in 24-48 Hours Long-Term Prognosis Remains Guarded Given Complex Hospital Course, Multiple Complex Medical Problems and Age. 11/27/2022 Patient clinically significantly improved and he is back to normal costal normal. He denies any specific complaints Bed comfortable. He denies chest pain or dyspnea. He tolerates diet well. NG tube output. No abdominal pain or distention. He has regular bowel movement about 3 per day while he is on lactulose 30 mg twice daily. Prednisone dose IS been tapered Name is on liquids and remains on Zosyn . Patient may be considered for discharge home her sodium today was 122 and we stopped his D5W. Also his hemoglobin 7.1-7.2 STABLE but will close monitoring Physical therapy recommended home with home care 11/28/2022 Patient is seen and evaluated in follow-up with multiple medical consultations following. Patient extremely anxious and wanting to go home and awaiting follow-up labs. Hemoglobin was found to be 6.9 this morning and will give a unit of PRBC. Patient also continues with indwelling Ruiz catheter for retention and will continue for now with possible outpatient trial voiding and urology follow-up. Patient is being given gentle IV hydration with normal saline with nephrology following recommend follow-up labs. Sodium continues to be low. Encouraged oral intake and increased activity as tolerated. at the bedside and questions and concerns were answered. 11/29/2022 Patient is seen and evaluated in follow-up currently sitting up in the chair eating and tolerating and patient reports is having bowel movements. Patient had indwelling Ruiz catheter removed and is voiding a urinal. Multiple medical consultations following an sodium level has worsened on normal saline with nephrology following and is now 119. Nephrology recommending transfer to ICU for close monitoring and hypertonic solution. Bi Developer is following recommending repeat sodium level this afternoon prior to initiating hypertonic solution. Patient is afebrile denies chest pain or shortness of breath. Patient is currently on room air. Patient denies nausea or vomiting and tolerating diet. Patient denies abdominal pain and continues to be distended. Review of systems: Constitutional: No reports of fatigue, fever, or chills Cardiovascular: No reports of chest pain or palpitations Respiratory: No reports of worsening shortness of breath or cough GI: No reports of nausea, vomiting, or diarrhea : No reports of dysuria or retention, voiding in the urinal post Ruiz catheter removal Neurovascular: No reports of weakness or numbness All medications have been reviewed Physical exam: GENERAL: The patient is awake, alert and oriented 3, obese Well developed, well nourished. Obese. HEENT: Pupils are round and equally reacting to light. EOMI. No scleral icterus. No conjunctival pallor. Normocephalic, atraumatic. No pharyngeal erythema. No thyromegaly. CARDIOVASCULAR: S1 and S2 present. No murmurs, rubs, or gallops. PULMONARY: Breath sounds bilaterally with some scattered rhonchi noted ABDOMEN: Tense, no rebound tenderness or guarding, distended, normoactive bowel sounds. No palpable organomegaly. MUSCULOSKELETAL: No joint swelling or deformity. EXTREMITIES: No cyanosis, clubbing, patient has bilateral pitting leg edema improving. NEUROLOGICAL: Gross neurological examination did not reveal any focal deficits. SKIN: No rashes. no petechiae. 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 Recent CT of the brain is negative. Improved Hyponatremia Acute diastolic CHF, acute exacerbation chronic kidney disease stage III Acute metabolic alkalosis, possibly exacerbated by contraction alkalosis. moderate to severe mitral regurgitation Severe pulmonary hypertension Mild COPD exacerbation Chronic atrial fibrillation GI prophylaxis DVT prophylaxis No code Plan: Advance diet to regular per surgery team, patient tolerating diet. Abdomen is distended which is chronic and patient reports is having bowel movements. There was evidence of possible free air noted on x-ray although patient abdomen pain has improved and patient reports to passing gas and having bowel movements. Patient is not a surgical candidate and high risk for morbidity and mortality. We'll continue to monitor per surgery. continue with Zosyn. Patient was continued on gentle hydration normal saline with nephrology following recommend follow-up labs. Sodium continues to be low although worsened and 119 with nephrology recommending hypertonic solution. Repeat sodium in the afternoon was still 119 after Salt Tabs and patient will be transferred to the ICU for close monitoring Continue prednisone taper and patient will need outpatient follow-up with pulmonary Ruiz catheter was removed and patient is voiding No code Prognosis is guarded. Patient is high-risk for decompensation or complication. Long-term prognosis is also guarded. Patient high risk for readmission Recommend follow-up labs. The impression and plan of care has been dictated by Danielle Olmos, Nurse Practitioner as directed. Dr. Jigna MD I have performed a history and examination and MDM of this patient, discussed the same with the dictator, and agree with the dictator's assessment and plan as written ,documented as a scribe. Based on total visit time, I have performed more than 50% of the visit. Objective - Vital Signs Vital signs: Vital Signs Temp 97.9 F 11/30/22 00:30 Pulse 71 11/30/22 03:30 Resp 7 L 11/30/22 03:30 BP 83/45 11/30/22 03:30 Pulse Ox 96 11/30/22 03:30 FiO2 28 11/17/22 08:36 Intake & Output 11/29/22 11/29/22 11/30/22 06:59 18:59 06:59 Intake Total 360 240 Output Total 1000 500 450 Balance -1000 -140 -210 Weight 90.2 kg 104.9 kg Intake: IV 240 Sodium Chloride 3%( 240 Hypertonic) 500 ml @ 30 mls/hr IV .[id number] [facility] Rx #:[id number] Oral 360 Output: Urine 1000 500 450 Other: Voiding Method Indwelling Catheter Urinal Urinal # Voids 0 1 # Bowel Movements 1 - Labs CBC & Chem 7: 11/30/22 01:44 11/30/22 01:44 Labs: Abnormal Lab Results - Last 24 Hours (Table) 11/29/22 11/29/22 11/29/22 Range/Units 06:04 07:42 07:42 WBC 19.9 H (3.8-10.6) k/uL RBC 2.09 L (4.30-5.90) m/uL Hgb 7.5 L (13.0-17.5) gm/dL Hct 23.0 L (39.0-53.0) % MCV 109.9 H (80.0-100.0) fL MCH 35.8 H (25.0-35.0) pg RDW 23.9 H (11.5-15.5) % Plt Count 61 L (150-450) k/uL Neutrophils # (1.3-7.7) k/uL Lymphocytes # (1.0-4.8) k/uL Macrocytosis Marked A Sodium 123 L (137-145) mmol/L Chloride 95 L (98-107) mmol/L Carbon Dioxide 21 L (22-30) mmol/L BUN 52 H (9-20) mg/dL Creatinine 1.81 H (0.66-1.25) mg/dL Glucose 147 H (74-99) mg/dL POC Glucose (mg/dL) 201 H (70-110) mg/dL Calcium 7.5 L (8.4-10.2) mg/dL Magnesium 2.4 H (1.6-2.3) mg/dL 11/29/22 11/29/22 11/29/22 Range/Units 11:43 11:44 15:26 WBC (3.8-10.6) k/uL RBC (4.30-5.90) m/uL Hgb (13.0-17.5) gm/dL Hct (39.0-53.0) % MCV (80.0-100.0) fL MCH (25.0-35.0) pg RDW (11.5-15.5) % Plt Count (150-450) k/uL Neutrophils # (1.3-7.7) k/uL Lymphocytes # (1.0-4.8) k/uL Macrocytosis Sodium 119 L* 119 L* (137-145) mmol/L Chloride 93 L (98-107) mmol/L Carbon Dioxide 18 L (22-30) mmol/L BUN 53 H (9-20) mg/dL Creatinine 1.72 H (0.66-1.25) mg/dL Glucose 233 H (74-99) mg/dL POC Glucose (mg/dL) 223 H (70-110) mg/dL Calcium 7.4 L (8.4-10.2) mg/dL Magnesium (1.6-2.3) mg/dL 11/29/22 11/29/22 11/29/22 Range/Units 16:35 18:13 20:49 WBC (3.8-10.6) k/uL RBC (4.30-5.90) m/uL Hgb (13.0-17.5) gm/dL Hct (39.0-53.0) % MCV (80.0-100.0) fL MCH (25.0-35.0) pg RDW (11.5-15.5) % Plt Count (150-450) k/uL Neutrophils # (1.3-7.7) k/uL Lymphocytes # (1.0-4.8) k/uL Macrocytosis Sodium (137-145) mmol/L Chloride (98-107) mmol/L Carbon Dioxide (22-30) mmol/L BUN (9-20) mg/dL Creatinine (0.66-1.25) mg/dL Glucose (74-99) mg/dL POC Glucose (mg/dL) 286 H 271 H 215 H (70-110) mg/dL Calcium (8.4-10.2) mg/dL Magnesium (1.6-2.3) mg/dL 11/29/22 11/30/22 11/30/22 Range/Units 21:10 01:44 01:44 WBC 16.3 H (3.8-10.6) k/uL RBC 1.99 L (4.30-5.90) m/uL Hgb 7.3 L (13.0-17.5) gm/dL Hct 22.0 L (39.0-53.0) % MCV 110.5 H (80.0-100.0) fL MCH 36.7 H (25.0-35.0) pg RDW 23.2 H (11.5-15.5) % Plt Count 49 L (150-450) k/uL Neutrophils # 14.3 H (1.3-7.7) k/uL Lymphocytes # 0.8 L (1.0-4.8) k/uL Macrocytosis Marked A Sodium 121 L 122 L (137-145) mmol/L Chloride 96 L (98-107) mmol/L Carbon Dioxide 21 L (22-30) mmol/L BUN 54 H (9-20) mg/dL Creatinine 1.58 H (0.66-1.25) mg/dL Glucose 157 H (74-99) mg/dL POC Glucose (mg/dL) (70-110) mg/dL Calcium 7.5 L (8.4-10.2) mg/dL Magnesium (1.6-2.3) mg/dL
[2022-11-30] MEDS: IPRATROPIUM-ALBUTEROL 3 ML NEB INHALATION SCH ×3 (08:11→20:55)
[2022-11-30] MEDS: BUDESONIDE 0.5 MG/2 ML NEBU INHALATION SCH ×2 (08:11→20:55)
[2022-11-30 08:15] LABS: Anisocytosis Moderate; HCT 22.8 % (39.0-53.0); HGB 7.6 gm/dL (13.0-17.5); Hypochromasia Slight; MCH 37.5 pg (25.0-35.0); MCHC 33.4 g/dL (31.0-37.0); MCV 112.3 fL (80.0-100.0); Macrocytosis Marked; Mean Platelet Volume 11.3; Poikilocytosis Slight; RBC 2.03 m/uL (4.30-5.90); WBC 15.3 k/uL (3.8-10.6)
[2022-11-30 08:23] LABS: Platelet Count 48 k/uL (150-450)
[2022-11-30 08:29] LABS: African American GFR (CKD) 46 (>60 ml/min/1.73 sqM); Anion Gap 5 mmol/L; Blood Urea Nitrogen 52 mg/dL (9-20); Calcium 7.6 mg/dL (8.4-10.2); Carbon Dioxide 21 mmol/L (22-30); Chloride 99 mmol/L (98-107); Glucose 159 mg/dL (74-99); Non-African American GFR(CKD) 39 (>60 ml/min/1.73 sqM); Potassium 4.2 mmol/L (3.5-5.1); Sodium 125 mmol/L (137-145)
[2022-11-30] MEDS: ATORVASTATIN 40 MG TAB PO SCH (08:56)
[2022-11-30] MEDS: predniSONE 10 MG TAB PO SCH (08:56)
[2022-11-30] MEDS: PANTOPRAZOLE 40 MG TABLET PO SCH (08:56)
[2022-11-30] MEDS: POTASSIUM CHLORIDE ER 20 MEQ TAB.ER PO SCH (08:56)
[2022-11-30] MEDS: MULTIVITAMINS, THERA 1 EACH TAB PO SCH (08:56)
[2022-11-30] MEDS: APIXABAN 2.5 MG TABLET PO SCH ×2 (08:56→20:27)
[2022-11-30] MEDS: FERROUS SULFATE 325 MG TAB PO SCH (08:56)
[2022-11-30] MEDS: LACTULOSE 20 GM/30 ML CUP PO SCH ×2 (08:57→20:32)
[2022-11-30] MEDS: THIAMINE 100 MG/ML 2 ML VIAL IVP SCH (08:57)
[2022-11-30] MEDS: INSULIN ASPART (NovoLOG) 100 UNIT/ML VIAL SQ SCH ×4 (09:09→20:31)
--- NOTE | 2022-11-30 10:42 | P.PN ---
Subjective Patient is seen for follow-up for acute kidney injury. Currently off of diuretics and IV fluids. Good UOP Serum creatinine at 1.7- 1.9 mg/dL Patient's sodium had dropped down to 122-1 23 mg/L. He received a bolus as well as IV Lasix with no change in his serum sodium. The day before patient has also received a dose of Samsca. Yesterday and sodium had dropped down to 119 and patient was started on 3% saline. This morning serum sodium is 125. 3% saline is on hold. Repeat sodium is pending. Patient denies any chest pains or shortness of breath. He does have lower extremity swelling. He is able to tolerate oral intake. NG tube just came out 2 days ago. Maintained on fluid restriction at 1.2 L per day. Urine sodium of less than 20 and urine osmolality 339 on 11/28/2022 Objective - Vital Signs Vital signs: Vital Signs Temp 97.9 F 11/30/22 08:00 Pulse 74 11/30/22 09:00 Resp 24 11/30/22 09:00 BP 113/52 11/30/22 09:00 Pulse Ox 95 11/30/22 09:00 FiO2 28 11/17/22 08:36 Intake & Output 11/29/22 11/30/22 11/30/22 18:59 06:59 18:59 Intake Total 360 315 297 Output Total 500 750 0 Balance -140 -435 297 Weight 104.9 kg Intake: IV 315 60 Sodium Chloride 3%( 315 60 Hypertonic) 500 ml @ 30 mls/hr IV .[id number] [facility] Rx #:[id number] Oral 360 237 Output: Urine 500 750 0 Other: Voiding Method Urinal Urinal # Voids 0 1 1 # Bowel Movements 1 - Exam Patient is awake. Sitting up in bed. Able to communicate. Mentation at baseline Alert oriented 3 Examination of the heart S1 and S2 Examination of the lungs bilateral breath sounds are heard Abdomen is soft nontender Examination lower extremities shows 2+ edema - Labs CBC & Chem 7: 11/30/22 07:41 11/30/22 07:41 Labs: Abnormal Lab Results - Last 24 Hours (Table) 11/29/22 11/29/22 11/29/22 Range/Units 11:43 11:44 15:26 WBC (3.8-10.6) k/uL RBC (4.30-5.90) m/uL Hgb (13.0-17.5) gm/dL Hct (39.0-53.0) % MCV (80.0-100.0) fL MCH (25.0-35.0) pg RDW (11.5-15.5) % Plt Count (150-450) k/uL Neutrophils # (1.3-7.7) k/uL Lymphocytes # (1.0-4.8) k/uL Macrocytosis Sodium 119 L* 119 L* (137-145) mmol/L Chloride 93 L (98-107) mmol/L Carbon Dioxide 18 L (22-30) mmol/L BUN 53 H (9-20) mg/dL Creatinine 1.72 H (0.66-1.25) mg/dL Glucose 233 H (74-99) mg/dL POC Glucose (mg/dL) 223 H (70-110) mg/dL Calcium 7.4 L (8.4-10.2) mg/dL 11/29/22 11/29/22 11/29/22 Range/Units 16:35 18:13 20:49 WBC (3.8-10.6) k/uL RBC (4.30-5.90) m/uL Hgb (13.0-17.5) gm/dL Hct (39.0-53.0) % MCV (80.0-100.0) fL MCH (25.0-35.0) pg RDW (11.5-15.5) % Plt Count (150-450) k/uL Neutrophils # (1.3-7.7) k/uL Lymphocytes # (1.0-4.8) k/uL Macrocytosis Sodium (137-145) mmol/L Chloride (98-107) mmol/L Carbon Dioxide (22-30) mmol/L BUN (9-20) mg/dL Creatinine (0.66-1.25) mg/dL Glucose (74-99) mg/dL POC Glucose (mg/dL) 286 H 271 H 215 H (70-110) mg/dL Calcium (8.4-10.2) mg/dL 11/29/22 11/30/22 11/30/22 Range/Units 21:10 01:44 01:44 WBC 16.3 H (3.8-10.6) k/uL RBC 1.99 L (4.30-5.90) m/uL Hgb 7.3 L (13.0-17.5) gm/dL Hct 22.0 L (39.0-53.0) % MCV 110.5 H (80.0-100.0) fL MCH 36.7 H (25.0-35.0) pg RDW 23.2 H (11.5-15.5) % Plt Count 49 L (150-450) k/uL Neutrophils # 14.3 H (1.3-7.7) k/uL Lymphocytes # 0.8 L (1.0-4.8) k/uL Macrocytosis Marked A Sodium 121 L 122 L (137-145) mmol/L Chloride 96 L (98-107) mmol/L Carbon Dioxide 21 L (22-30) mmol/L BUN 54 H (9-20) mg/dL Creatinine 1.58 H (0.66-1.25) mg/dL Glucose 157 H (74-99) mg/dL POC Glucose (mg/dL) (70-110) mg/dL Calcium 7.5 L (8.4-10.2) mg/dL 11/30/22 11/30/22 Range/Units 07:41 07:41 WBC 15.3 H (3.8-10.6) k/uL RBC 2.03 L (4.30-5.90) m/uL Hgb 7.6 L (13.0-17.5) gm/dL Hct 22.8 L (39.0-53.0) % MCV 112.3 H (80.0-100.0) fL MCH 37.5 H (25.0-35.0) pg RDW 23.0 H (11.5-15.5) % Plt Count 48 L (150-450) k/uL Neutrophils # (1.3-7.7) k/uL Lymphocytes # (1.0-4.8) k/uL Macrocytosis Marked A Sodium 125 L (137-145) mmol/L Chloride (98-107) mmol/L Carbon Dioxide 21 L (22-30) mmol/L BUN 52 H (9-20) mg/dL Creatinine 1.61 H (0.66-1.25) mg/dL Glucose 159 H (74-99) mg/dL POC Glucose (mg/dL) (70-110) mg/dL Calcium 7.6 L (8.4-10.2) mg/dL Assessment and Plan Assessment: 1. Acute kidney injury cardiorenal, renal function stable. UA is benign. Serum creatinine staying at about 1.7 - 1.8 mg/dL 2. Chronic kidney disease NKF stage III a secondary to nephrosclerosis with baseline creatinine 1.2-1.3 mg/dL 3. Severe pulmonary hypertension with moderate to severe mitral regurgitation and chronic lower extremity edema 4. Acute on chronic CHF with preserved ejection fraction 5. Coronary artery disease with history of previous coronary stenting 6. Metabolic alkalosis secondary to diuresis, improved with hydration. 7. Hypernatremia associated with free water deficit. Status post D5W 8. Ileus with NG tube, being followed by surgery. NG tube is out 9. Hypokalemia associated with GI fluid loss, currently being replaced 10. Hyponatremia after correction of hypernatremia. Urine sodium of less than 20 and urine osmolality 339 on 11/28/2022. No respond to IV fluids or Lasix. Patient also received Samsca with no improvement in serum sodium and he is currently status post 3% saline with improved sodium to about 125. Plan: Hold 3% saline Repeat sodium Continue with free water restriction Continue to monitor serum sodium today.
[2022-11-30 10:48] VITALS: BMI 36.2
[2022-11-30 11:36] LABS: Glucose,Whole Blood 224 mg/dL (70-110)
--- NOTE | 2022-11-30 11:41 | P.PN ---
Subjective Progress Note Date: 11/30/22 Principal diagnosis: Pulmonary edema. The patient is seen today 11/22/2022 in follow-up on the selective care unit. He is currently awake and alert. Maintaining O2 saturations in the upper 90s on 4 L/m per nasal cannula. He's been afebrile. Hemodynamically stable. Computed tomography scan of the abdomen and pelvis revealed a dilated appendix with gas within the tip. There is some nonspecific surrounding fluid/stranding. Findings could be seen with acute appendicitis. Gas and stool filled dilated colon and rectum without focal transition point suggestive of an colonic ileus. 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 Hepatic cirrhosis with findings suggestive of portal hypertension with trace ascites and splenic collaterals. Right adrenal gland lipid rich adenoma. Nonobstructive bilateral renal calculi. Surgical services are following. Nasogastric tube has been placed. Today's chest x-ray reveals cardiomegaly. Chronic parenchymal changes without new focal airspace opacity, pleural effusion or pneumothorax. Blood cultures revealed no growth. White count 23.9. Hemoglobin 7.5. MCV is 122. Platelet count 73,000. Sodium 136. Potassium 3.1. Bicarb 30. BUN 59. Creatinine 1.74. Glucose 337. He is continued on DuoNeb inhalations, Pulmicort inhalations, prednisone taper. She is on Xifaxan, Zosyn, Levaquin. Lovenox for anticoagulation. The patient is seen today 11/23/2022 in follow-up on the selective care unit. He is awake, alert, oriented. Resting fairly comfortably in bed. Denies any worsening shortness of breath, cough or congestion. Denies any significant abdominal pain. Nasogastric tube remains in place. Chest x-ray reveals cardiomegaly. Chronic parenchymal changes without any new focal airspace opacities, pleural effusion or pneumothorax. He is maintaining good O2 saturations in the upper 90s on 2 L/m per nasal cannula. He is afebrile. Hemodynamically stable. White count 19.6. Hemoglobin 7.5. Platelets 94,000. Sodium 146. Potassium 2.9. Bicarb 33. BUN 65. Creatinine 1.94. Glucose 137. He remains on rifaximin and Zosyn. Continued on bronchodilators. Patient is seen today 11/24/2022 in follow-up on the selective care unit. He is resting comfortably in bed. He remains awake, alert, oriented. His is at the bedside. He is having bowel movements. Nasogastric tube remains in place. Blood cultures revealed no growth. Blood sugar 156. He is continued on DuoNeb inhalations. Prednisone taper. Remains on Zosyn. Remains on rifaximin. Anticoagulated with Lovenox. Continued on D5W at 50 MLS per hour. The patient is seen today 11/26/2022 in follow-up on the selective care unit. He remains awake and alert oriented. His is at the bedside. He is resting comfortably in bed. He is having bowel movements. Nasogastric tube has been discontinued. He is tolerating a liquid diet. Denies any abdominal discomfort. No nausea or vomiting. Blood cultures revealed no growth in blood glucose 174. He remains on DuoNeb inhalations, Pulmicort inhalations. Prednisone taper. Antibiotics in the form of Zosyn. Lovenox for anticoagulation. Progress note dated 11/27/2022. The patient is seen today in room 372. The patient apparently will not be discharged today, because his hemoglobin was 7.2, and his sodium was 122. The patient's on room air. The patient is not receiving any IV fluids. Clinically, the patient looks very safe, and could be discharged home from the pulmonary standpoint. White count is 19.8, hemoglobin 7.2, hematocrit 21.4, and platelet count of 72,000. Sodium is 122, potassium 4.1, chlorides 92, CO2 26, BUN 52, and creatinine 2.08. Blood cultures are negative. Progress note dated 11/28/2022. The patient is seen today in room 372. The patient was not discharged yesterday, because of a low hemoglobin of 7.2 and a low sodium of 123. The patient clinically is stable. He is on room air. He is not receiving any IV fluids and he was waiting for his lab results today. He has no new complaints today. Labs, currently pending at the time of this dictation. Blood cultures were negative. Progress note dated 11/29/2022. The patient is seen today in room 372. Sitting in a chair next to his bed. His is in the room with him. Yesterday, the patient received a unit of blood, because his hemoglobin was 6.9. Today, it 7.5. In addition, the patient's sodium today is 123. He is on room air. He's not receiving any IV fluids. His Ruiz catheter has been removed. He is hoping to be discharged today. White count is 19.9, hemoglobin 7.5, hematocrit 23, and platelet count a 61,000. Sodium 123, potassium 4, chlorides 95, CO2 21, BUN 52, and creatinine 1.81. Blood cultures are all negative. Progress note dated 11/30/2022. The patient is seen today in room 258. He was transferred to the intensive care unit, for ongoing hyponatremia. Nephrology wanted the patient to be placed on 3% saline infusion, and for that reason, he was transferred to the ICU. This morning's sodium was 125. 3% saline has been turned off. He is not receiving any additional IV fluids. He is on room air. He denies any abdominal pain. Hemoglobin is 7.6. White count 15.3, hemoglobin 7.6, hematocrit 22.8, and pl atelet count is 48,000. Sodium 125, potassium 4.2, chlorides 99, CO2 21, BUN 52, and creatinine 1.61. Blood cultures are negative. Chest x-ray shows a lower lobe infiltrate and/or atelectasis. Objective - Vital Signs Vital signs: Vital Signs Temp 97.9 F 11/30/22 08:00 Pulse 74 11/30/22 09:00 Resp 24 11/30/22 09:00 BP 113/52 11/30/22 09:00 Pulse Ox 95 11/30/22 09:00 FiO2 28 11/17/22 08:36 Intake & Output 11/29/22 11/30/22 11/30/22 18:59 06:59 18:59 Intake Total 360 315 297 Output Total 500 750 0 Balance -140 -435 297 Weight 104.9 kg 104.9 kg Intake: IV 315 60 Sodium Chloride 3%( 315 60 Hypertonic) 500 ml @ 30 mls/hr IV .[id number] ON LICENSE OF [facility] Rx #:[id number] Oral 360 237 Output: Urine 500 750 0 Other: Voiding Method Urinal Urinal # Voids 0 1 1 # Bowel Movements 1 - Exam No acute distress, oriented 3. Currently on room air. Saturations are 96 %. HEENT examination is grossly unremarkable. Neck supple. Full range of motion. No adenopathy thyromegaly or neck vein distention. Cardiovascular examination reveals regular rhythm rate. S1-S2 normal. No S3 or S4. No discernible murmur noted. Heart rate 74 bpm. Lungs reveal clear breath sounds. Breath sounds are equal bilaterally. No adventitious lung sounds including wheezes rhonchi or crackles. Room air saturation is 96 %. Abdomen soft bowel sounds are heard. No masses or tenderness. Abdomen is mildly distended. Extremities are intact. No cyanosis clubbing or edema. Skin is without rash or lesion. Neurologic examination is brief but nonfocal. - Labs CBC & Chem 7: 11/30/22 07:41 11/30/22 07:41 Labs: Abnormal Lab Results - Last 24 Hours (Table) 11/29/22 11/29/22 11/29/22 Range/Units 11:43 11:44 15:26 WBC (3.8-10.6) k/uL RBC (4.30-5.90) m/uL Hgb (13.0-17.5) gm/dL Hct (39.0-53.0) % MCV (80.0-100.0) fL MCH (25.0-35.0) pg RDW (11.5-15.5) % Plt Count (150-450) k/uL Neutrophils # (1.3-7.7) k/uL Lymphocytes # (1.0-4.8) k/uL Macrocytosis Sodium 119 L* 119 L* (137-145) mmol/L Chloride 93 L (98-107) mmol/L Carbon Dioxide 18 L (22-30) mmol/L BUN 53 H (9-20) mg/dL Creatinine 1.72 H (0.66-1.25) mg/dL Glucose 233 H (74-99) mg/dL POC Glucose (mg/dL) 223 H (70-110) mg/dL Calcium 7.4 L (8.4-10.2) mg/dL 11/29/22 11/29/22 11/29/22 Range/Units 16:35 18:13 20:49 WBC (3.8-10.6) k/uL RBC (4.30-5.90) m/uL Hgb (13.0-17.5) gm/dL Hct (39.0-53.0) % MCV (80.0-100.0) fL MCH (25.0-35.0) pg RDW (11.5-15.5) % Plt Count (150-450) k/uL Neutrophils # (1.3-7.7) k/uL Lymphocytes # (1.0-4.8) k/uL Macrocytosis Sodium (137-145) mmol/L Chloride (98-107) mmol/L Carbon Dioxide (22-30) mmol/L BUN (9-20) mg/dL Creatinine (0.66-1.25) mg/dL Glucose (74-99) mg/dL POC Glucose (mg/dL) 286 H 271 H 215 H (70-110) mg/dL Calcium (8.4-10.2) mg/dL 11/29/22 11/30/22 11/30/22 Range/Units 21:10 01:44 01:44 WBC 16.3 H (3.8-10.6) k/uL RBC 1.99 L (4.30-5.90) m/uL Hgb 7.3 L (13.0-17.5) gm/dL Hct 22.0 L (39.0-53.0) % MCV 110.5 H (80.0-100.0) fL MCH 36.7 H (25.0-35.0) pg RDW 23.2 H (11.5-15.5) % Plt Count 49 L (150-450) k/uL Neutrophils # 14.3 H (1.3-7.7) k/uL Lymphocytes # 0.8 L (1.0-4.8) k/uL Macrocytosis Marked A Sodium 121 L 122 L (137-145) mmol/L Chloride 96 L (98-107) mmol/L Carbon Dioxide 21 L (22-30) mmol/L BUN 54 H (9-20) mg/dL Creatinine 1.58 H (0.66-1.25) mg/dL Glucose 157 H (74-99) mg/dL POC Glucose (mg/dL) (70-110) mg/dL Calcium 7.5 L (8.4-10.2) mg/dL 11/30/22 11/30/22 11/30/22 Range/Units 07:41 07:41 11:35 WBC 15.3 H (3.8-10.6) k/uL RBC 2.03 L (4.30-5.90) m/uL Hgb 7.6 L (13.0-17.5) gm/dL Hct 22.8 L (39.0-53.0) % MCV 112.3 H (80.0-100.0) fL MCH 37.5 H (25.0-35.0) pg RDW 23.0 H (11.5-15.5) % Plt Count 48 L (150-450) k/uL Neutrophils # (1.3-7.7) k/uL Lymphocytes # (1.0-4.8) k/uL Macrocytosis Marked A Sodium 125 L (137-145) mmol/L Chloride (98-107) mmol/L Carbon Dioxide 21 L (22-30) mmol/L BUN 52 H (9-20) mg/dL Creatinine 1.61 H (0.66-1.25) mg/dL Glucose 159 H (74-99) mg/dL POC Glucose (mg/dL) 224 H (70-110) mg/dL Calcium 7.6 L (8.4-10.2) mg/dL Assessment and Plan Assessment: Acute hepatic encephalopathy, suspect liver cirrhosis secondary to remote alcohol abuse. Computed tomography scan of the abdomen and pelvis revealed a dilated appendix with gas within the tip. There is some nonspecific surrounding fluid/stranding. Findings could be seen with acute appendicitis. Gas and stool filled dilated colon and rectum without focal transition point suggestive of an colonic ileus. 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 Hepatic cirrhosis with findings suggestive of portal hypertension with trace ascites and splenic collaterals. Right adrenal gland lipid rich adenoma. Nonobstructive bilateral renal calculi. Surgical services are following. Nasogastric tube has been placed and subsequently removed. Tolerating a liquid diet. Persistent hyponatremia. Altered mental status secondary to above, acute metabolic toxic encephalopathy, improved. Acute diastolic congestive heart failure. Acute on chronic kidney disease. Acute metabolic alkalosis secondary to diuretics. Moderate severe pulmonary hypertension. Moderate severe mitral regurgitation. History of mild COPD. Chronic atrial fibrillation. History of colonic polyps. Type 2 diabetes with diabetic nephropathy. History of CVA without any residual deficit. Plan: Plan dated 11/27/2022. The patient's overall pulmonary status is very stable. He's on room air. NG tube is been removed. The patient could be considered for discharge, but tells me he has not been discharged because his hemoglobin is only 7.2, sodium is 122. Those will be repeated. Clinically he is very stable. Labs, x-rays, and medications are reviewed. The patient does continue on Zosyn. Prognosis is guarded. The patient is a DO NOT RESUSCITATE patient. Plan dated 11/28/2022. The patient's overall pulmonary status is very stable. He's on room air. NG tube is been removed. The patient was not discharged yesterday, because his sodium was 123, and his hemoglobin was 7.2. Labs, currently still pending from today. The patient continues on Zosyn. The patient is a DO NOT RESUSCITATE patient. Clinically, he is very stable. He has no specific complaints. From the pulmonary standpoint, the patient could be discharged when other physicians and consultants, agree. Plan dated 11/29/2022. The patient's hemoglobin was 6.9 yesterday, so he received 1 unit of packed red blood cells. The patient's sodium level was 123. We will continue to follow the patient and make recommendations along. The patient is hoping to be discharged soon. Clinically, he appears very stable. He sitting in a chair next to his bed. He denies any shortness of breath, cough, wheezing, chest tightness, or phlegm production. Labs, x-rays, and all medications are reviewed. Plan dated 11/30/2022. The patient's sodium this morning was 125. The patient's on room air. He's not receiving any IV fluids. 3% saline has been discontinued. Hemoglobin this morning is 7.6. From the pulmonary standpoint, the patient could be considered for possible discharge, or transferred out to the general medical floor. A repeat sodium is pending. Additional recommendations and suggestions are forthcoming. Prognosis is guarded. Time with Patient: Less than 30
--- NOTE | 2022-11-30 11:59 | P.PN ---
Subjective Progress Note Date: 11/30/22 CHIEF COMPLAINT: Shortness of breath HISTORY OF PRESENT ILLNESS: Patient transferred to the ICU due to his low sodium. Sodium level is improving. Patient denies any abdominal pain. Denies any nausea or vomiting. Tolerating regular diet. He is having bowel movements. Afebrile. WBC is down from 16-15.3 hemoglobin 7.6 platelets 48 sodium 125 creatinine 1.61 PHYSICAL EXAM: VITAL SIGNS: Reviewed. GENERAL: Well-developed in no acute distress. ABDOMEN: Soft. Distended. Nontender NEUROLOGIC: Patient is awake and alert ASSESSMENT: 1. Colonic ileus 2. Appendicitis ruled out. No evidence of acute appendicitis on CAT scan. Fluid around the appendix is likely ascites 3. hepatic encephalopathy with alcoholic cirrhosis 4. CHF exacerbation 5. Hyponatremia PLAN: -Possibility of free air noted on x-ray. Per Dr. Blancas patient has been asymptomatic with no abdominal pain. He is high risk for surgical intervention and most likely would not survive any surgery. At this time will observe patient. -Hyponatremia management per nephrology -Continue supportive care -Continue regular diet -Encourage patient to increase activity level -No plans for any surgical intervention Physician [facility] Coordinator note has been reviewed by physician. Signing provider agrees with the documented findings, assessment, and plan of care. Objective - Vital Signs Vital signs: Vital Signs Temp 97.9 F 11/30/22 08:00 Pulse 74 11/30/22 09:00 Resp 24 11/30/22 09:00 BP 113/52 11/30/22 09:00 Pulse Ox 95 11/30/22 09:00 FiO2 28 11/17/22 08:36 Intake & Output 11/29/22 11/30/22 11/30/22 18:59 06:59 18:59 Intake Total 360 315 297 Output Total 500 750 0 Balance -140 -435 297 Weight 104.9 kg 104.9 kg Intake: IV 315 60 Sodium Chloride 3%( 315 60 Hypertonic) 500 ml @ 30 mls/hr IV .[id number] [facility] Rx #:[id number] Oral 360 237 Output: Urine 500 750 0 Other: Voiding Method Urinal Urinal # Voids 0 1 1 # Bowel Movements 1 - Labs CBC & Chem 7: 11/30/22 07:41 11/30/22 07:41 Labs: Abnormal Lab Results - Last 24 Hours (Table) 0711/29/22 11/29/22 Range/Units 11:44 15:26 16:35 WBC (3.8-10.6) k/uL RBC (4.30-5.90) m/uL Hgb (13.0-17.5) gm/dL Hct (39.0-53.0) % MCV (80.0-100.0) fL MCH (25.0-35.0) pg RDW (11.5-15.5) % Plt Count (150-450) k/uL Neutrophils # (1.3-7.7) k/uL Lymphocytes # (1.0-4.8) k/uL Macrocytosis Sodium 119 L* 119 L* (137-145) mmol/L Chloride 93 L (98-107) mmol/L Carbon Dioxide 18 L (22-30) mmol/L BUN 53 H (9-20) mg/dL Creatinine 1.72 H (0.66-1.25) mg/dL Glucose 233 H (74-99) mg/dL POC Glucose (mg/dL) 286 H (70-110) mg/dL Calcium 7.4 L (8.4-10.2) mg/dL 11/29/22 11/29/22 11/29/22 Range/Units 18:13 20:49 21:10 WBC (3.8-10.6) k/uL RBC (4.30-5.90) m/uL Hgb (13.0-17.5) gm/dL Hct (39.0-53.0) % MCV (80.0-100.0) fL MCH (25.0-35.0) pg RDW (11.5-15.5) % Plt Count (150-450) k/uL Neutrophils # (1.3-7.7) k/uL Lymphocytes # (1.0-4.8) k/uL Macrocytosis Sodium 121 L (137-145) mmol/L Chloride (98-107) mmol/L Carbon Dioxide (22-30) mmol/L BUN (9-20) mg/dL Creatinine (0.66-1.25) mg/dL Glucose (74-99) mg/dL POC Glucose (mg/dL) 271 H 215 H (70-110) mg/dL Calcium (8.4-10.2) mg/dL 07/07/23 07/07/23 07/07/23 Range/Units 01:44 01:44 07:41 WBC 16.3 H 15.3 H (3.8-10.6) k/uL RBC 1.99 L 2.03 L (4.30-5.90) m/uL Hgb 7.3 L 7.6 L (13.0-17.5) gm/dL Hct 22.0 L 22.8 L (39.0-53.0) % MCV 110.5 H 112.3 H (80.0-100.0) fL MCH 36.7 H 37.5 H (25.0-35.0) pg RDW 23.2 H 23.0 H (11.5-15.5) % Plt Count 49 L 48 L (150-450) k/uL Neutrophils # 14.3 H (1.3-7.7) k/uL Lymphocytes # 0.8 L (1.0-4.8) k/uL Macrocytosis Marked A Marked A Sodium 122 L (137-145) mmol/L Chloride 96 L (98-107) mmol/L Carbon Dioxide 21 L (22-30) mmol/L BUN 54 H (9-20) mg/dL Creatinine 1.58 H (0.66-1.25) mg/dL Glucose 157 H (74-99) mg/dL POC Glucose (mg/dL) (70-110) mg/dL Calcium 7.5 L (8.4-10.2) mg/dL 11/30/22 11/30/22 Range/Units 07:41 11:35 WBC (3.8-10.6) k/uL RBC (4.30-5.90) m/uL Hgb (13.0-17.5) gm/dL Hct (39.0-53.0) % MCV (80.0-100.0) fL MCH (25.0-35.0) pg RDW (11.5-15.5) % Plt Count (150-450) k/uL Neutrophils # (1.3-7.7) k/uL Lymphocytes # (1.0-4.8) k/uL Macrocytosis Sodium 125 L (137-145) mmol/L Chloride (98-107) mmol/L Carbon Dioxide 21 L (22-30) mmol/L BUN 52 H (9-20) mg/dL Creatinine 1.61 H (0.66-1.25) mg/dL Glucose 159 H (74-99) mg/dL POC Glucose (mg/dL) 224 H (70-110) mg/dL Calcium 7.6 L (8.4-10.2) mg/dL
[2022-11-30] MEDS: SODIUM CHLORIDE 3%(HYPERTONIC) 500 ML IV SCH (12:06)
[2022-11-30] MEDS ORDERED: SODIUM CHLORIDE 0.9% 1,000 ML IV SCH (14:00)
[2022-11-30] MEDS: DARBEPOETIN ALFA 40 MCG/0.4 ML SYRINGE SQ SCH (14:21)
[2022-11-30 16:25] LABS: Glucose,Whole Blood 261 mg/dL (70-110)
[2022-11-30 20:23] LABS: Glucose,Whole Blood 278 mg/dL (70-110)
[2022-11-30] MEDS: SODIUM CHLORIDE 0.9% 1,000 ML IV SCH (20:27)
[2022-11-30] MEDS: TAMSULOSIN 0.4 MG CAP.ER.24H PO SCH (20:27)
[2022-11-30] MEDS: LATANOPROST 0.005% OPHTH DROPS 2.5 ML BTL BOTH EYES SCH (20:49)
--- NOTE | 2022-11-30 23:51 | P.PN ---
Subjective Progress Note Date: 11/30/22 This is a pleasant 82 years old male with multiple medical problems including history of heart failure presents with worsening dyspnea and leg swelling on and he was found with fluid overload secondary to diastolic CHF, echocardiogram from 09/2022 showing ejection fraction 55%. Currently cardiolo lucio signed off the case and patient being monitored closely by nephrology team. He remains on Lasix drip 10 mg/h, creatinine 1.4, 1.6 and 2.1. Discuss case with nephrology team who recommended to keep the Lasix drip for now. Pulmonary team on the case for mild COPD exacerbation and currently on a prednisone 40 mg. Hemoglobin 7.8. 11/17/2022 patient CHF and fluid overload improving, his oxygen saturation is acceptable and wants only with minimal crepitation mainly on the right side however he still have 2+ leg edema. However patient developed more alkalosis therefore Lasix drip was stopped and started on torsemide while the dose for Zaroxolyn was lowered to 2.5 mg. Creatinine is stable at 2.0 compared to 1.4 on admission. However patient become more confused today most likely secondary to metabolic encephalopathy and toxic encephalopathy. No recent fall. Patient fell about 3 days ago at that time CT of the brain was negative. Workup showing ammonia level is high at 255 and lactulose is added. We will continue neuro check and consider repeat CT of the brain condition worsens Pressure applied with sponge gel to bleeding superficial ulcer on the right forearm. 11/18/2022 Patient still confused and sleepy this morning from yesterday he got worse significantly. There is no new symptoms, he slipped with the And tachycardic. He had low-grade temperature of 99.8. Leukocytosis worsened 10.5 up to 17,000. Chest x-ray and urinalysis were repeated they were negative for acute process. Risks of flaps looks stable. Creatinine 1.9 which is a stable but higher than baseline because he was on Lasix drip. The sixth rib. Now, torsemide is only once daily. Also patient started on normal saline 75 mL/h Patient continued on prednisone 40 mg once a Eliquis area We will send blood culture and check liver ultrasound as liver enzymes and bilirubin only mildly elevated although this is not very new. Plan discussed with staff and bedside nurse more than once. 11/19/2022 Patient slightly improving regarding his mentation, he still confused sleepy and does not respond to verbal or tactile stimuli but he opens his eyes from moving in bed to some degree which she was not doing its yesterday. His ammonia level is elevated yesterday to 55 and liver ultrasound showing possible liver cirrhosis which is most likely related to alcoholic liver cirrhosis. GI team. He is started on lactulose and ammonia level improved and 48. Also he remains on normal saline at 50 mL/h, alert from 75 mm/h for acute kidney injury and metabolic abnormalities including contraction alkalosis. Check labs tomorrow 11/20/2022 Patient is more awake and interactive significantly better than yesterday and he can answer some questions but still confused and not quite back to his baseline. However patient denies any pain or specific symptoms. He has frequent bowel movements. GI team on the case for his hepatic encephalopathy and his lactulose dose was increased to 30 mg 3 times a day and rifaximin is added. Sodium 148 and patient started on D5 W Creatinine improving down to 1.6. Patient remains on prednisone 40 mg 11/21/2022 Patient today sitting up in bed with sitter at bedside for safety, patient still little confused to the surrounding but improved compared to yesterday. Patient is not eating well he starts complaining from abdominal pain and tenderness today,(yesterday his abdomen was not tender on exam) on exam he had distention and tenderness periumbilical area, computed tomography scan of the abdomen and pelvis was obtained showing gas appendix suspicious for appendicitis and dilated bowel with no transitions zone suspicious for ileus. Patient hemodynamically stable and is afebrile, tachycardia improved. Ammonia improved to baseline yesterday. Creatinine is stable and improved down to 1.6. Hemoglobin is stable at 8.1 and he has mild leukocytosis. Patient was started on Zosyn with surgery to consult I discussed the case with Gen. surgery evaluated the patient 11/22/2022 Patient today still tired and lethargic. But he wakes up and talk to family and at bedside and mentation improved since she started on lactulose. However he developed ileus and abdominal tenderness yesterday and there was suspicion of gas and the appendix suspicious for acute appendicitis, I discussed the case with surgery team and Dr. Begum we are not sure if this is a case of acute appendicitis however it is not entirely excluded or abdominal sepsis especially in view of his abdominal tenderness ileus and abdominal distention. Patient is not able to eat. NG tube was placed in the morning but no output. His labs showing worsening leukocytosis up to 23,000, hemoglobin slightly less 7.5, platelets slightly less at 70 3K, creatinine is slightly up 1.7. Because of this was started on Zosyn yesterday for covering gram-negative and an aerobic microorganisms and we are going to add Levaquin intravenously for better gram-negative coverage given his worsening situation area Of note ammonia level down to 11 and sodium level improved to normal at 136 today. He is hemodynamically stable and afebrile. He was started on normal saline 50 mL/h. Also continued on prednisone 40 mg, rifaximin 550 mg which is another antibiotic. He is still on lactulose 30 g and breathing treatment I talked to the at bedside that's is a very good surgical candidate if surgical intervention is warranted given his a newly diagnosed liver cirrhosis and decompensated liver function Avalide verbalized understanding and acceptance this information. Also she understands that his prognosis is very guarded. Patient is high-risk for deterioration despite treatment. And I told the even if his 5 this episode given his multiple progressive problems with the complication make his long-term prognosis poor as well. She verbalized understanding and acceptance. Currently patient already no good Diuretics are held Alk phos was held Discussed with staff 11/23/2022 patient today showed drastic improvement in his mentation that his back to baseline fully awake and oriented, still feels tired overall and generally He still have NG tube in a Place and hemocculted up twice to has to be inserted, draining dark brown discharge. About 100 mL in the bag. Abdominal distention also less abdominal tenderness is the severe compared to yesterday He had some very small bowel movement. But they denies chest pain or dyspnea He remains on D5W at 50 mL/h. Also remains on antibiotic with Zosyn and rifaximin, home dose of all liquids, prednisone 40 mg and lactulose 11/24/2022 Since yesterday's mentation is starts improving and today he is even more awake and alert back to baseline as per at bedside. NG tube in place with dark aspirate, less than 100 mL he ended bag. No abdominal pain or tenderness, abdominal distention is improved. He had several bowel movements. Creatinine is stable at 1.8. Platelets 94, hemoglobin same as 7.5, and WBC trending down to 19,000. He remains on Lovenox 60 mg, prednisone 40 mg, Lasix was discontinued several days ago and currently is on fluid restriction 11/25/2022 Patient sitting in bed comfortable, mentation is at baseline, at bedside which confirms this. Patient abdominal distention is improving. He had NG tube which is taken TODAY by mistake, however with improvement with abdominal distention and abdominal pain patient is a started on liquid diet today. Kidney function improved down to 1.7, sodium 140, patient remains on D5W at 50 mL per hour. Low potassium 2.9. And replace per protocol and follow closely. Patient is having 4-5 bowel movements which helped him regarding his hepatic encephalopathy with his improved Patient also remains on a prednisone 40 mg COPD exacerbation. Yulia is in hold and currently is taking Lovenox therapeutic dose. Today I discussed medical problems and plan with the patient and at bedside and all questions answered to her satisfaction. We will lower his prednisone to 30 mg daily from tomorrow, he was taken. There is a 40 mg more than a week 11/26/2022 Patient is doing well today, his pleasant relaxed comfortable sitting in chair with no complaint. Denies any complaints stating that he is back to baseline creatinine is mentation. No chest pain abdominal pain no vomiting. No urinary complaints. He is hemodynamically stable possible trial on room air Labs also stable, he has stopped leukocytosis of 20,000 but this is thought secondary to steroid effect and is stable. No fever or other signs of infection. Already patient received antibiotics and currently he is asymptomatic. Hemoglobin is stable at 7.6 and we change his Lovenox back to his home dose of leg was 2.5 mg twice a day. Platelets also stable at 91,000. Creatinine is stable at 1.8. Patient is having regular bowel movement about 2-4 each day as he told me. No abdominal pain. He Liquid Diet and Advanced a 2 Regular Diet. And If He Tolerates That Well He Would Be Considered for Discharge Tomorrow Physical Therapist Evaluated Him Today and the Recommended Home with Home Care. Patient Remains on D5W Today. Lactulose 30 Mg Twice a Day. Tomorrow Last Dose of Zosyn and What May Be Changed to Augmentin upon Discharge. And He Is on Prednisone 30 Mg Which Will Be Tapered upon Discharge As Well Possible Discharge in 24-48 Hours Long-Term Prognosis Remains Guarded Given Complex Hospital Course, Multiple Complex Medical Problems and Age. 11/27/2022 Patient clinically significantly improved and he is back to normal costal normal. He denies any specific complaints Bed comfortable. He denies chest pain or dyspnea. He tolerates diet well. NG tube output. No abdominal pain or distention. He has regular bowel movement about 3 per day while he is on lactulose 30 mg twice daily. Prednisone dose IS been tapered Name is on liquids and remains on Zosyn . Patient may be considered for discharge home her sodium today was 122 and we stopped his D5W. Also his hemoglobin 7.1-7.2 STABLE but will close monitoring Physical therapy recommended home with home care 11/28/2022 Patient is seen and evaluated in follow-up with multiple medical consultations following. Patient extremely anxious and wanting to go home and awaiting follow-up labs. Hemoglobin was found to be 6.9 this morning and will give a unit of PRBC. Patient also continues with indwelling Ruiz catheter for retention and will continue for now with possible outpatient trial voiding and urology follow-up. Patient is being given gentle IV hydration with normal saline with nephrology following recommend follow-up labs. Sodium continues to be low. Encouraged oral intake and increased activity as tolerated. at the bedside and questions and concerns were answered. 11/29/2022 Patient is seen and evaluated in follow-up currently sitting up in the chair eating and tolerating and patient reports is having bowel movements. Patient had indwelling Ruiz catheter removed and is voiding a urinal. Multiple medical consultations following an sodium level has worsened on normal saline with nephrology following and is now 119. Nephrology recommending transfer to ICU for close monitoring and hypertonic solution. [employer] is following recommending repeat sodium level this afternoon prior to initiating hypertonic solution. Patient is afebrile denies chest pain or shortness of breath. Patient is currently on room air. Patient denies nausea or vomiting and tolerating diet. Patient denies abdominal pain and continues to be distended. 11/30/2022 Patient is seen and evaluated in follow-up continues to be in the ICU as patient was maintained on 3% hypertonic solution per nephrology. Patient follow-up sodium this morning is 125 and hypertonic solution has been placed on hold recommending follow-up sodium levels every few hours to monitor closely. Patient is afebrile with no reports of chest pain or shortness of breath. Patient tolerating diet with no reports of nausea or vomiting. Abdomen continues to be distended and general surgery following with no plans for surg ical intervention. Patient denies any abdominal pain. Patient reports is passing gas and having bowel movements and urinating with no difficulty. If hypertonic solution remains on hold patient may be moved out of the ICU. Review of systems: Constitutional: No reports of fatigue, fever, or chills Cardiovascular: No reports of chest pain or palpitations Respiratory: No reports of worsening shortness of breath or cough GI: No reports of nausea, vomiting, or diarrhea : No reports of dysuria or retention, voiding in the urinal post Ruiz catheter removal Neurovascular: No reports of weakness or numbness All medications have been reviewed Physical exam: GENERAL: The patient is awake, alert and oriented 3, obese Well developed, well nourished. Obese. HEENT: Pupils are round and equally reacting to light. EOMI. No scleral icterus. No conjunctival pallor. Normocephalic, atraumatic. No pharyngeal erythema. No thyromegaly. CARDIOVASCULAR: S1 and S2 present. No murmurs, rubs, or gallops. PULMONARY: Breath sounds bilaterally with some scattered rhonchi noted ABDOMEN: Tense, no rebound tenderness or guarding, distended, normoactive bowel sounds. No palpable organomegaly. MUSCULOSKELETAL: No joint swelling or deformity. EXTREMITIES: No cyanosis, clubbing, patient has bilateral pitting leg edema improving. NEUROLOGICAL: Gross neurological examination did not reveal any focal deficits. SKIN: No rashes. no petechiae. 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 Recent CT of the brain is negative. Improved Hyponatremia Acute diastolic CHF, acute exacerbation chronic kidney disease stage III Acute metabolic alkalosis, possibly exacerbated by contraction alkalosis. moderate to severe mitral regurgitation Severe pulmonary hypertension Mild COPD exacerbation Chronic atrial fibrillation GI prophylaxis DVT prophylaxis No code Plan: Patient continues to be in the ICU as patient was maintained on hypertonic solution and follow-up sodium slightly improved at 125. 3% saline held at this time recommending close follow-up with sodium levels. Patient is maintained on gentle hydration with nephrology following closely recommending follow-up labs in the a.m. Patient be considered out of the ICU if hypertonic solution remains on hold. General surgery following with no plans for surgical intervention. Abdomen cont inues to be distended although patient denies any pain, nausea, or vomiting and reports to passing gas and having bowel movements. Indwelling Ruiz catheter was removed and patient is voiding with no difficulties diet has been advanced to regular and patient tolerating. Continue prednisone taper and patient will need outpatient follow-up with pulmonary No code Prognosis is guarded. Patient is high-risk for decompensation or complication. Long-term prognosis is also guarded. Patient high risk for readmission The impression and plan of care has been dictated by Danielle Olmos, Nurse Practitioner as directed. Dr. Jigna MD I have performed a history and examination and MDM of this patient, discussed the same with the dictator, and agree with the dictator's assessment and plan as written ,documented as a scribe. Based on total visit time, I have performed more than 50% of the visit. Objective - Vital Signs Vital signs: Vital Signs Temp 97.6 F 11/30/22 12:00 Pulse 72 11/30/22 15:19 Resp 14 11/30/22 14:00 BP 117/74 11/30/22 14:00 Pulse Ox 96 11/30/22 14:00 FiO2 28 11/17/22 08:36 Intake & Output 11/29/22 11/30/22 11/30/22 18:59 06:59 18:59 Intake Total 360 315 609 Output Total 500 750 480 Balance -140 -435 129 Weight 104.9 kg 104.9 kg Intake: IV 315 135 Sodium Chloride 0.9% 1, 75 000 ml @ 75 mls/hr IV . [id number] [facility] Rx#:[id number] Sodium Chloride 3%( 315 60 Hypertonic) 500 ml @ 30 mls/hr IV .[id number] [facility] Rx #:[id number] Oral 360 474 Output: Urine 500 750 320 Post Void Residual 160 Other: Voiding Method Urinal Urinal Urinal # Voids 0 1 1 # Bowel Movements 1 - Labs CBC & Chem 7: 11/30/22 07:41 11/30/22 17:23 Labs: Abnormal Lab Results - Last 24 Hours (Table) 11/29/22 11/29/22 11/29/22 Range/Units 16:35 18:13 20:49 WBC (3.8-10.6) k/uL RBC (4.30-5.90) m/uL Hgb (13.0-17.5) gm/dL Hct (39.0-53.0) % MCV (80.0-100.0) fL MCH (25.0-35.0) pg RDW (11.5-15.5) % Plt Count (150-450) k/uL Neutrophils # (1.3-7.7) k/uL Lymphocytes # (1.0-4.8) k/uL Macrocytosis Sodium (137-145) mmol/L Chloride (98-107) mmol/L Carbon Dioxide (22-30) mmol/L BUN (9-20) mg/dL Creatinine (0.66-1.25) mg/dL Glucose (74-99) mg/dL POC Glucose (mg/dL) 286 H 271 H 215 H (70-110) mg/dL Calcium (8.4-10.2) mg/dL 11/29/22 11/30/22 11/30/22 Range/Units 21:10 01:44 01:44 WBC 16.3 H (3.8-10.6) k/uL RBC 1.99 L (4.30-5.90) m/uL Hgb 7.3 L (13.0-17.5) gm/dL Hct 22.0 L (39.0-53.0) % MCV 110.5 H (80.0-100.0) fL MCH 36.7 H (25.0-35.0) pg RDW 23.2 H (11.5-15.5) % Plt Count 49 L (150-450) k/uL Neutrophils # 14.3 H (1.3-7.7) k/uL Lymphocytes # 0.8 L (1.0-4.8) k/uL Macrocytosis Marked A Sodium 121 L 122 L (137-145) mmol/L Chloride 96 L (98-107) mmol/L Carbon Dioxide 21 L (22-30) mmol/L BUN 54 H (9-20) mg/dL Creatinine 1.58 H (0.66-1.25) mg/dL Glucose 157 H (74-99) mg/dL POC Glucose (mg/dL) (70-110) mg/dL Calcium 7.5 L (8.4-10.2) mg/dL 11/30/22 11/30/22 11/30/22 Range/Units 07:41 07:41 11:35 WBC 15.3 H (3.8-10.6) k/uL RBC 2.03 L (4.30-5.90) m/uL Hgb 7.6 L (13.0-17.5) gm/dL Hct 22.8 L (39.0-53.0) % MCV 112.3 H (80.0-100.0) fL MCH 37.5 H (25.0-35.0) pg RDW 23.0 H (11.5-15.5) % Plt Count 48 L (150-450) k/uL Neutrophils # (1.3-7.7) k/uL Lymphocytes # (1.0-4.8) k/uL Macrocytosis Marked A Sodium 125 L (137-145) mmol/L Chloride (98-107) mmol/L Carbon Dioxide 21 L (22-30) mmol/L BUN 52 H (9-20) mg/dL Creatinine 1.61 H (0.66-1.25) mg/dL Glucose 159 H (74-99) mg/dL POC Glucose (mg/dL) 224 H (70-110) mg/dL Calcium 7.6 L (8.4-10.2) mg/dL 11/30/22 Range/Units 12:48 WBC (3.8-10.6) k/uL RBC (4.30-5.90) m/uL Hgb (13.0-17.5) gm/dL Hct (39.0-53.0) % MCV (80.0-100.0) fL MCH (25.0-35.0) pg RDW (11.5-15.5) % Plt Count (150-450) k/uL Neutrophils # (1.3-7.7) k/uL Lymphocytes # (1.0-4.8) k/uL Macrocytosis Sodium 125 L (137-145) mmol/L Chloride (98-107) mmol/L Carbon Dioxide (22-30) mmol/L BUN (9-20) mg/dL Creatinine (0.66-1.25) mg/dL Glucose (74-99) mg/dL POC Glucose (mg/dL) (70-110) mg/dL Calcium (8.4-10.2) mg/dL
[2022-12-01 06:05] LABS: Anisocytosis Moderate; Basophils % (A) 0 %; Eosinophils # (A) 0.2 k/uL (0-0.7); Eosinophils % (A) 1 %; HCT 21.9 % (39.0-53.0); HGB 7.1 gm/dL (13.0-17.5); Hypochromasia Moderate; Lymphocytes % (A) 8 %; MCH 36.5 pg (25.0-35.0); MCHC 32.2 g/dL (31.0-37.0); MCV 113.4 fL (80.0-100.0); Macrocytosis Marked; Mean Platelet Volume 10.7; Monocytes # (A) 0.6 k/uL (0-1.0); Monocytes % (A) 5 %; Neutrophils # (A) 10.4 k/uL (1.3-7.7); Neutrophils % (A) 84 %; Poikilocytosis Slight; RBC 1.93 m/uL (4.30-5.90); RDW 22.8 % (11.5-15.5); WBC 12.4 k/uL (3.8-10.6)
[2022-12-01 06:08] LABS: Platelet Count 47 k/uL (150-450)
[2022-12-01] MEDS: SODIUM CHLORIDE 0.9% 1,000 ML IV SCH (06:11)
[2022-12-01 06:22] LABS: Glucose,Whole Blood 178 mg/dL (70-110)
[2022-12-01 06:25] LABS: African American GFR (CKD) 48 (>60 ml/min/1.73 sqM); Anion Gap 1 mmol/L; Blood Urea Nitrogen 52 mg/dL (9-20); Calcium 7.5 mg/dL (8.4-10.2); Carbon Dioxide 23 mmol/L (22-30); Chloride 102 mmol/L (98-107); Glucose 145 mg/dL (74-99); Non-African American GFR(CKD) 41 (>60 ml/min/1.73 sqM); Potassium 4.8 mmol/L (3.5-5.1); Sodium 126 mmol/L (137-145)
[2022-12-01] MEDS: INSULIN ASPART (NovoLOG) 100 UNIT/ML VIAL SQ SCH ×4 (06:40→20:30)
--- NOTE | 2022-12-01 07:02 | P.PN ---
Progress Note - Text Progress Note Date: 12/01/22 Patient is resting comfortably in his bed. He denies any abdominal pain. He states he has no significant tenderness. He is tolerating diet. On exam vital signs are stable. Abdomen is soft nontender. Patient will receive supportive care. No surgical intervention is planned.
[2022-12-01] MEDS: IPRATROPIUM-ALBUTEROL 3 ML NEB INHALATION SCH ×3 (07:45→20:03)
[2022-12-01] MEDS: BUDESONIDE 0.5 MG/2 ML NEBU INHALATION SCH ×2 (07:45→20:03)
[2022-12-01] MEDS ORDERED: FUROSEMIDE 10 MG/ML 4 ML VIAL IV STA (08:29)
--- NOTE | 2022-12-01 09:02 | P.PN ---
Subjective Patient is seen in follow-up for acute kidney injury and hyponatremia. Renal function stable. Sodium level little better. Receiving IV fluids. Tolerating oral intake. Vital signs are stable. General: No acute distress. HEENT: Head exam is unremarkable. LUNGS: No audible rhonchi or wheezes. HEART: Rate and Rhythm are regular. ABDOMEN: Nontender, distention noted. EXTREMITITES: 1+ edema. Objective - Vital Signs Vital signs: Vital Signs Temp 97.7 F 12/01/22 02:00 Pulse 69 12/01/22 08:03 Resp 19 12/01/22 05:00 BP 118/57 12/01/22 02:00 Pulse Ox 97 12/01/22 05:00 FiO2 28 11/17/22 08:36 Intake & Output 11/30/22 12/01/22 12/01/22 18:59 06:59 18:59 Intake Total 834 610 Output Total 780 200 Balance 54 410 Weight 104.9 kg 105.9 kg Intake: IV 360 210 Sodium Chloride 0.9% 1, 300 210 000 ml @ 75 mls/hr IV . [id number] [facility] Rx#:[id number] Sodium Chloride 3%( 60 Hypertonic) 500 ml @ 30 mls/hr IV .[id number] [facility] Rx #:[id number] Intake, IV Titration 400 Amount Sodium Chloride 0.9% 1, 400 000 ml @ 50 mls/hr IV . Q20H [facility] Rx#:[id number] Oral 474 Output: Urine 620 200 Post Void Residual 160 Other: Voiding Method Urinal Urinal # Voids 1 1 # Bowel Movements 1 - Labs CBC & Chem 7: 12/01/22 05:35 12/01/22 05:35 Labs: Abnormal Lab Results - Last 24 Hours (Table) 11/30/22 11/30/22 11/30/22 Range/Units 11:35 12:48 16:24 WBC (3.8-10.6) k/uL RBC (4.30-5.90) m/uL Hgb (13.0-17.5) gm/dL Hct (39.0-53.0) % MCV (80.0-100.0) fL MCH (25.0-35.0) pg RDW (11.5-15.5) % Plt Count (150-450) k/uL Neutrophils # (1.3-7.7) k/uL Macrocytosis Sodium 125 L (137-145) mmol/L BUN (9-20) mg/dL Creatinine (0.66-1.25) mg/dL Glucose (74-99) mg/dL POC Glucose (mg/dL) 224 H 261 H (70-110) mg/dL Calcium (8.4-10.2) mg/dL 11/30/22 11/30/22 12/01/22 Range/Units 17:23 20:21 05:35 WBC 12.4 H (3.8-10.6) k/uL RBC 1.93 L (4.30-5.90) m/uL Hgb 7.1 L (13.0-17.5) gm/dL Hct 21.9 L (39.0-53.0) % MCV 113.4 H (80.0-100.0) fL MCH 36.5 H (25.0-35.0) pg RDW 22.8 H (11.5-15.5) % Plt Count 47 L (150-450) k/uL Neutrophils # 10.4 H (1.3-7.7) k/uL Macrocytosis Marked A Sodium 124 L (137-145) mmol/L BUN (9-20) mg/dL Creatinine (0.66-1.25) mg/dL Glucose (74-99) mg/dL POC Glucose (mg/dL) 278 H (70-110) mg/dL Calcium (8.4-10.2) mg/dL 12/01/22 12/01/22 Range/Units 05:35 06:20 WBC (3.8-10.6) k/uL RBC (4.30-5.90) m/uL Hgb (13.0-17.5) gm/dL Hct (39.0-53.0) % MCV (80.0-100.0) fL MCH (25.0-35.0) pg RDW (11.5-15.5) % Plt Count (150-450) k/uL Neutrophils # (1.3-7.7) k/uL Macrocytosis Sodium 126 L (137-145) mmol/L BUN 52 H (9-20) mg/dL Creatinine 1.55 H (0.66-1.25) mg/dL Glucose 145 H (74-99) mg/dL POC Glucose (mg/dL) 178 H (70-110) mg/dL Calcium 7.5 L (8.4-10.2) mg/dL Assessment and Plan Plan: Assessment: 1. Acute kidney injury secondary to ATN secondary to cardiorenal syndrome. UA benign. No hydronephrosis noted on kidney ultrasound. Nonoliguric. Renal function improving. 2. Chronic kidney disease stage IIIA with baseline creatinine 1.2-1.4 secondary to nephrosclerosis. 3. Acute on chronic diastolic CHF with moderate to severe mitral regurgitation, moderate tricuspid regurgitation and severe pulmonary hypertension. 4. Volume overload. 5. Anemia. Iron replete. On Aranesp. 6. Coronary artery disease status post cardiac stenting. 7. Hyponatremia. Urine sodium less than 20 and urine osmolality 339 dated 11/28/2022. Status post 3% saline this admission. Slightly hypervolemic now. 8. Ileus. NG tube removed. Surgery following. Plan: Hep-Lock IV fluids. Maintain fluid restriction. Lasix 40 mg IV once today. Continue to monitor renal function and urine output. Check TSH.
[2022-12-01] MEDS: POTASSIUM CHLORIDE ER 20 MEQ TAB.ER PO SCH (09:05)
[2022-12-01] MEDS: THIAMINE 100 MG/ML 2 ML VIAL IVP SCH (09:07)
[2022-12-01] MEDS: MULTIVITAMINS, THERA 1 EACH TAB PO SCH (09:08)
[2022-12-01] MEDS: ATORVASTATIN 40 MG TAB PO SCH (09:08)
[2022-12-01] MEDS: APIXABAN 2.5 MG TABLET PO SCH ×2 (09:08→20:30)
[2022-12-01] MEDS: PANTOPRAZOLE 40 MG TABLET PO SCH (09:08)
[2022-12-01] MEDS: FERROUS SULFATE 325 MG TAB PO SCH (09:09)
[2022-12-01] MEDS: predniSONE 10 MG TAB PO SCH (09:09)
[2022-12-01] MEDS: LACTULOSE 20 GM/30 ML CUP PO SCH ×3 (09:19→20:43)
--- NOTE | 2022-12-01 10:45 | P.PN ---
Subjective Progress Note Date: 12/01/22 Principal diagnosis: Pulmonary edema. The patient is seen today 11/22/2022 in follow-up on the selective care unit. He is currently awake and alert. Maintaining O2 saturations in the upper 90s on 4 L/m per nasal cannula. He's been afebrile. Hemodynamically stable. Computed tomography scan of the abdomen and pelvis revealed a dilated appendix with gas within the tip. There is some nonspecific surrounding fluid/stranding. Findings could be seen with acute appendicitis. Gas and stool filled dilated colon and rectum without focal transition point suggestive of an colonic ileus. 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 Hepatic cirrhosis with findings suggestive of portal hypertension with trace ascites and splenic collaterals. Right adrenal gland lipid rich adenoma. Nonobstructive bilateral renal calculi. Surgical services are following. Nasogastric tube has been placed. Today's chest x-ray reveals cardiomegaly. Chronic parenchymal changes without new focal airspace opacity, pleural effusion or pneumothorax. Blood cultures revealed no growth. White count 23.9. Hemoglobin 7.5. MCV is 122. Platelet count 73,000. Sodium 136. Potassium 3.1. Bicarb 30. BUN 59. Creatinine 1.74. Glucose 337. He is continued on DuoNeb inhalations, Pulmicort inhalations, prednisone taper. She is on Xifaxan, Zosyn, Levaquin. Lovenox for anticoagulation. The patient is seen today 11/23/2022 in follow-up on the selective care unit. He is awake, alert, oriented. Resting fairly comfortably in bed. Denies any worsening shortness of breath, cough or congestion. Denies any significant abdominal pain. Nasogastric tube remains in place. Chest x-ray reveals cardiomegaly. Chronic parenchymal changes without any new focal airspace opacities, pleural effusion or pneumothorax. He is maintaining good O2 saturations in the upper 90s on 2 L/m per nasal cannula. He is afebrile. Hemodynamically stable. White count 19.6. Hemoglobin 7.5. Platelets 94,000. Sodium 146. Potassium 2.9. Bicarb 33. BUN 65. Creatinine 1.94. Glucose 137. He remains on rifaximin and Zosyn. Continued on bronchodilators. Patient is seen today 11/24/2022 in follow-up on the selective care unit. He is resting comfortably in bed. He remains awake, alert, oriented. His is at the bedside. He is having bowel movements. Nasogastric tube remains in place. Blood cultures revealed no growth. Blood sugar 156. He is continued on DuoNeb inhalations. Prednisone taper. Remains on Zosyn. Remains on rifaximin. Anticoagulated with Lovenox. Continued on D5W at 50 MLS per hour. The patient is seen today 11/26/2022 in follow-up on the selective care unit. He remains awake and alert oriented. His is at the bedside. He is resting comfortably in bed. He is having bowel movements. Nasogastric tube has been discontinued. He is tolerating a liquid diet. Denies any abdominal discomfort. No nausea or vomiting. Blood cultures revealed no growth in blood glucose 174. He remains on DuoNeb inhalations, Pulmicort inhalations. Prednisone taper. Antibiotics in the form of Zosyn. Lovenox for anticoagulation. Progress note dated 11/27/2022. The patient is seen today in room 372. The patient apparently will not be discharged today, because his hemoglobin was 7.2, and his sodium was 122. The patient's on room air. The patient is not receiving any IV fluids. Clinically, the patient looks very safe, and could be discharged home from the pulmonary standpoint. White count is 19.8, hemoglobin 7.2, hematocrit 21.4, and platelet count of 72,000. Sodium is 122, potassium 4.1, chlorides 92, CO2 26, BUN 52, and creatinine 2.08. Blood cultures are negative. Progress note dated 11/28/2022. The patient is seen today in room 372. The patient was not discharged yesterday, because of a low hemoglobin of 7.2 and a low sodium of 123. The patient clinically is stable. He is on room air. He is not receiving any IV fluids and he was waiting for his lab results today. He has no new complaints today. Labs, currently pending at the time of this dictation. Blood cultures were negative. Progress note dated 11/29/2022. The patient is seen today in room 372. Sitting in a chair next to his bed. His is in the room with him. Yesterday, the patient received a unit of blood, because his hemoglobin was 6.9. Today, it 7.5. In addition, the patient's sodium today is 123. He is on room air. He's not receiving any IV fluids. His Ruiz catheter has been removed. He is hoping to be discharged today. White count is 19.9, hemoglobin 7.5, hematocrit 23, and platelet count a 61,000. Sodium 123, potassium 4, chlorides 95, CO2 21, BUN 52, and creatinine 1.81. Blood cultures are all negative. Progress note dated 11/30/2022. The patient is seen today in room 258. He was transferred to the intensive care unit, for ongoing hyponatremia. Nephrology wanted the patient to be placed on 3% saline infusion, and for that reason, he was transferred to the ICU. This morning's sodium was 125. 3% saline has been turned off. He is not receiving any additional IV fluids. He is on room air. He denies any abdominal pain. Hemoglobin is 7.6. White count 15.3, hemoglobin 7.6, hematocrit 22.8, and pl atelet count is 48,000. Sodium 125, potassium 4.2, chlorides 99, CO2 21, BUN 52, and creatinine 1.61. Blood cultures are negative. Chest x-ray shows a lower lobe infiltrate and/or atelectasis. Progress note dated 12/01/2022. The patient is seen today in room 258. The patient had an uneventful night. He is on room air. He is not receiving any IV fluids. This morning's sodium was 126. In our opinion, the patient could be discharged to the general medical floor, or, discharged home. White count 12.4, hemoglobin 7.1, hematocrit 21.9, with a platelet count of 47,000. Sodium this morning is 126, potassium 4.8, chlorides 102, CO2 23, BUN 52, and creatinine 1.55. Objective - Vital Signs Vital signs: Vital Signs Temp 98.1 F 12/01/22 08:00 Pulse 69 12/01/22 08:03 Resp 16 12/01/22 08:00 BP 121/53 12/01/22 08:00 Pulse Ox 97 12/01/22 08:00 FiO2 28 11/17/22 08:36 Intake & Output 11/30/22 12/01/22 12/01/22 18:59 06:59 18:59 Intake Total 834 610 0 Output Total 780 200 375 Balance 54 410 -375 Weight 104.9 kg 105.9 kg Intake: IV 360 210 Sodium Chloride 0.9% 1, 300 210 000 ml @ 75 mls/hr IV . [id number] BRET Rx#:[id number] Sodium Chloride 3%( 60 Hypertonic) 500 ml @ 30 mls/hr IV .[id number] BRET Rx #:[id number] Intake, IV Titration 400 Amount Sodium Chloride 0.9% 1, 400 000 ml @ 50 mls/hr IV . Q20H [facility]RET Rx#:[id number] Oral 474 0 Output: Urine 620 200 375 Post Void Residual 160 Other: Voiding Method Urinal Urinal Urinal # Voids 1 1 # Bowel Movements 1 - Exam No acute distress, oriented 3. Currently on room air. Saturations are 97 %. HEENT examination is grossly unremarkable. Neck supple. Full range of motion. No adenopathy thyromegaly or neck vein distention. Cardiovascular examination reveals regular rhythm rate. S1-S2 normal. No S3 or S4. No discernible murmur noted. Heart rate 69 bpm. Lungs reveal clear breath sounds. Breath sounds are equal bilaterally. No adv entitious lung sounds including wheezes rhonchi or crackles. Room air saturation is 97 %. Abdomen soft bowel sounds are heard. No masses or tenderness. Extremities are intact. No cyanosis clubbing or edema. Skin is without rash or lesion. Neurologic examination is brief but nonfocal. - Labs CBC & Chem 7: 12/01/22 05:35 12/01/22 05:35 Labs: Abnormal Lab Results - Last 24 Hours (Table) 11/30/22 11/30/22 11/30/22 Range/Units 11:35 12:48 16:24 WBC (3.8-10.6) k/uL RBC (4.30-5.90) m/uL Hgb (13.0-17.5) gm/dL Hct (39.0-53.0) % MCV (80.0-100.0) fL MCH (25.0-35.0) pg RDW (11.5-15.5) % Plt Count (150-450) k/uL Neutrophils # (1.3-7.7) k/uL Macrocytosis Sodium 125 L (137-145) mmol/L BUN (9-20) mg/dL Creatinine (0.66-1.25) mg/dL Glucose (74-99) mg/dL POC Glucose (mg/dL) 224 H 261 H (70-110) mg/dL Calcium (8.4-10.2) mg/dL 11/30/22 11/30/22 12/01/22 Range/Units 17:23 20:21 05:35 WBC 12.4 H (3.8-10.6) k/uL RBC 1.93 L (4.30-5.90) m/uL Hgb 7.1 L (13.0-17.5) gm/dL Hct 21.9 L (39.0-53.0) % MCV 113.4 H (80.0-100.0) fL MCH 36.5 H (25.0-35.0) pg RDW 22.8 H (11.5-15.5) % Plt Count 47 L (150-450) k/uL Neutrophils # 10.4 H (1.3-7.7) k/uL Macrocytosis Marked A Sodium 124 L (137-145) mmol/L BUN (9-20) mg/dL Creatinine (0.66-1.25) mg/dL Glucose (74-99) mg/dL POC Glucose (mg/dL) 278 H (70-110) mg/dL Calcium (8.4-10.2) mg/dL 12/01/22 12/01/22 Range/Units 05:35 06:20 WBC (3.8-10.6) k/uL RBC (4.30-5.90) m/uL Hgb (13.0-17.5) gm/dL Hct (39.0-53.0) % MCV (80.0-100.0) fL MCH (25.0-35.0) pg RDW (11.5-15.5) % Plt Count (150-450) k/uL Neutrophils # (1.3-7.7) k/uL Macrocytosis Sodium 126 L (137-145) mmol/L BUN 52 H (9-20) mg/dL Creatinine 1.55 H (0.66-1.25) mg/dL Glucose 145 H (74-99) mg/dL POC Glucose (mg/dL) 178 H (70-110) mg/dL Calcium 7.5 L (8.4-10.2) mg/dL Assessment and Plan Assessment: Acute hepatic encephalopathy, suspect liver cirrhosis secondary to remote alcohol abuse. Computed tomography scan of the abdomen and pelvis revealed a dilated appendix with gas within the tip. There is some nonspecific surrounding fluid/stranding. Findings could be seen with acute appendicitis. Gas and stool filled dilated colon and rectum without focal transition point suggestive of an colonic ileus. 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 Hepatic cirrhosis with findings suggestive of portal hypertension with trace ascites and splenic collaterals. Right adrenal gland lipid rich adenoma. Nonobstructive bilateral renal calculi. Surgical services are following. Nasogastric tube has been placed and subsequently removed. Tolerating a liquid diet. Persistent hyponatremia, improved. Altered mental status secondary to above, acute metabolic toxic encephalopathy, improved. Acute diastolic congestive heart failure. Acute on chronic kidney disease. Acute metabolic alkalosis secondary to diuretics. Moderate severe pulmonary hypertension. Moderate severe mitral regurgitation. History of mild COPD. Chronic atrial fibrillation. History of colonic polyps. Type 2 diabetes with diabetic nephropathy. History of CVA without any residual deficit. Plan: Plan dated 11/27/2022. The patient's overall pulmonary status is very stable. He's on room air. NG tube is been removed. The patient could be considered for discharge, but tells me he has not been discharged because his hemoglobin is only 7.2, sodium is 122. Those will be repeated. Clinically he is very stable. Labs, x-rays, and medications are reviewed. The patient does continue on Zosyn. Prognosis is guarded. The patient is a DO NOT RESUSCITATE patient. Plan dated 11/28/2022. The patient's overall pulmonary status is very stable. He's on room air. NG tube is been removed. The patient was not discharged yesterday, because his sodium was 123, and his hemoglobin was 7.2. Labs, currently still pending from today. The patient continues on Zosyn. The patient is a DO NOT RESUSCITATE patient. Clinically, he is very stable. He has no specific complaints. From the pulmonary standpoint, the patient could be discharged when other physicians and consultants, agree. Plan dated 11/29/2022. The patient's hemoglobin was 6.9 yesterday, so he received 1 unit of packed red blood cells. The patient's sodium level was 123. We will continue to follow the patient and make recommendations along. The patient is hoping to be discharged soon. Clinically, he appears very stable. He sitting in a chair next to his bed. He denies any shortness of breath, cough, wheezing, chest tightness, or phlegm production. Labs, x-rays, and all medications are reviewed. Plan dated 11/30/2022. The patient's sodium this morning was 125. The patient's on room air. He's not receiving any IV fluids. 3% saline has been discontinued. Hemoglobin this morning is 7.6. From the pulmonary standpoint, the patient could be considered for possible discharge, or transferred out to the general medical floor. A repeat sodium is pending. Additional recommendations and suggestions are forthc oming. Prognosis is guarded. Plan dated 12/01/2022. The patient's sodium this morning was 126. The patient is not receiving any supplemental oxygen, or IV fluids as transferred into the intensive care unit for 3% saline, which she received, and has been completed. The patient is stable for discharge to the general medical floor, or, could be discharged home. We'll leave that up to the primary service. No additional recommendations are made. Labs, x-rays, and medications are reviewed. Time with Patient: Less than 30
[2022-12-01 11:39] LABS: Glucose,Whole Blood 207 mg/dL (70-110)
[2022-12-01 16:54] LABS: Glucose,Whole Blood 242 mg/dL (70-110)
[2022-12-01 20:24] LABS: Glucose,Whole Blood 255 mg/dL (70-110)
[2022-12-01] MEDS: TAMSULOSIN 0.4 MG CAP.ER.24H PO SCH (20:30)
[2022-12-01] MEDS: DORZOLAMIDE-TIMOLOL 2.23%/0.68 10ML BTL BOTH EYES SCH (20:31)
[2022-12-01] MEDS: LATANOPROST 0.005% OPHTH DROPS 2.5 ML BTL BOTH EYES SCH (20:31)
[2022-12-02 06:33] LABS: Glucose,Whole Blood 168 mg/dL (70-110)
[2022-12-02] MEDS: INSULIN ASPART (NovoLOG) 100 UNIT/ML VIAL SQ SCH ×4 (06:39→20:46)
[2022-12-02] MEDS: PANTOPRAZOLE 40 MG TABLET PO SCH (06:39)
--- NOTE | 2022-12-02 07:19 | P.PN ---
Subjective Progress Note Date: 12/01/22 This is a pleasant 82 years old male with multiple medical problems including history of heart failure presents with worsening dyspnea and leg swelling on and he was found with fluid overload secondary to diastolic CHF, echocardiogram from 09/2022 showing ejection fraction 55%. Currently cardiolo lucio signed off the case and patient being monitored closely by nephrology team. He remains on Lasix drip 10 mg/h, creatinine 1.4, 1.6 and 2.1. Discuss case with nephrology team who recommended to keep the Lasix drip for now. Pulmonary team on the case for mild COPD exacerbation and currently on a prednisone 40 mg. Hemoglobin 7.8. 11/17/2022 patient CHF and fluid overload improving, his oxygen saturation is acceptable and wants only with minimal crepitation mainly on the right side however he still have 2+ leg edema. However patient developed more alkalosis therefore Lasix drip was stopped and started on torsemide while the dose for Zaroxolyn was lowered to 2.5 mg. Creatinine is stable at 2.0 compared to 1.4 on admission. However patient become more confused today most likely secondary to metabolic encephalopathy and toxic encephalopathy. No recent fall. Patient fell about 3 days ago at that time CT of the brain was negative. Workup showing ammonia level is high at 255 and lactulose is added. We will continue neuro check and consider repeat CT of the brain condition worsens Pressure applied with sponge gel to bleeding superficial ulcer on the right forearm. 11/18/2022 Patient still confused and sleepy this morning from yesterday he got worse significantly. There is no new symptoms, he slipped with the And tachycardic. He had low-grade temperature of 99.8. Leukocytosis worsened 10.5 up to 17,000. Chest x-ray and urinalysis were repeated they were negative for acute process. Risks of flaps looks stable. Creatinine 1.9 which is a stable but higher than baseline because he was on Lasix drip. The sixth rib. Now, torsemide is only once daily. Also patient started on normal saline 75 mL/h Patient continued on prednisone 40 mg once a Eliquis area We will send blood culture and check liver ultrasound as liver enzymes and bilirubin only mildly elevated although this is not very new. Plan discussed with staff and bedside nurse more than once. 11/19/2022 Patient slightly improving regarding his mentation, he still confused sleepy and does not respond to verbal or tactile stimuli but he opens his eyes from moving in bed to some degree which she was not doing its yesterday. His ammonia level is elevated yesterday to 55 and liver ultrasound showing possible liver cirrhosis which is most likely related to alcoholic liver cirrhosis. GI team. He is started on lactulose and ammonia level improved and 48. Also he remains on normal saline at 50 mL/h, alert from 75 mm/h for acute kidney injury and metabolic abnormalities including contraction alkalosis. Check labs tomorrow 11/20/2022 Patient is more awake and interactive significantly better than yesterday and he can answer some questions but still confused and not quite back to his baseline. However patient denies any pain or specific symptoms. He has frequent bowel movements. GI team on the case for his hepatic encephalopathy and his lactulose dose was increased to 30 mg 3 times a day and rifaximin is added. Sodium 148 and patient started on D5 W Creatinine improving down to 1.6. Patient remains on prednisone 40 mg 11/21/2022 Patient today sitting up in bed with sitter at bedside for safety, patient still little confused to the surrounding but improved compared to yesterday. Patient is not eating well he starts complaining from abdominal pain and tenderness today,(yesterday his abdomen was not tender on exam) on exam he had distention and tenderness periumbilical area, computed tomography scan of the abdomen and pelvis was obtained showing gas appendix suspicious for appendicitis and dilated bowel with no transitions zone suspicious for ileus. Patient hemodynamically stable and is afebrile, tachycardia improved. Ammonia improved to baseline yesterday. Creatinine is stable and improved down to 1.6. Hemoglobin is stable at 8.1 and he has mild leukocytosis. Patient was started on Zosyn with surgery to consult I discussed the case with Gen. surgery evaluated the patient 11/22/2022 Patient today still tired and lethargic. But he wakes up and talk to family and at bedside and mentation improved since she started on lactulose. However he developed ileus and abdominal tenderness yesterday and there was suspicion of gas and the appendix suspicious for acute appendicitis, I discussed the case with surgery team and Dr. Begum we are not sure if this is a case of acute appendicitis however it is not entirely excluded or abdominal sepsis especially in view of his abdominal tenderness ileus and abdominal distention. Patient is not able to eat. NG tube was placed in the morning but no output. His labs showing worsening leukocytosis up to 23,000, hemoglobin slightly less 7.5, platelets slightly less at 70 3K, creatinine is slightly up 1.7. Because of this was started on Zosyn yesterday for covering gram-negative and an aerobic microorganisms and we are going to add Levaquin intravenously for better gram-negative coverage given his worsening situation area Of note ammonia level down to 11 and sodium level improved to normal at 136 today. He is hemodynamically stable and afebrile. He was started on normal saline 50 mL/h. Also continued on prednisone 40 mg, rifaximin 550 mg which is another antibiotic. He is still on lactulose 30 g and breathing treatment I talked to the at bedside that's is a very good surgical candidate if surgical intervention is warranted given his a newly diagnosed liver cirrhosis and decompensated liver function Avalide verbalized understanding and acceptance this information. Also she understands that his prognosis is very guarded. Patient is high-risk for deterioration despite treatment. And I told the even if his 5 this episode given his multiple progressive problems with the complication make his long-term prognosis poor as well. She verbalized understanding and acceptance. Currently patient already no good Diuretics are held Alk phos was held Discussed with staff 11/23/2022 patient today showed drastic improvement in his mentation that his back to baseline fully awake and oriented, still feels tired overall and generally He still have NG tube in a Place and hemocculted up twice to has to be inserted, draining dark brown discharge. About 100 mL in the bag. Abdominal distention also less abdominal tenderness is the severe compared to yesterday He had some very small bowel movement. But they denies chest pain or dyspnea He remains on D5W at 50 mL/h. Also remains on antibiotic with Zosyn and rifaximin, home dose of all liquids, prednisone 40 mg and lactulose 11/24/2022 Since yesterday's mentation is starts improving and today he is even more awake and alert back to baseline as per at bedside. NG tube in place with dark aspirate, less than 100 mL he ended bag. No abdominal pain or tenderness, abdominal distention is improved. He had several bowel movements. Creatinine is stable at 1.8. Platelets 94, hemoglobin same as 7.5, and WBC trending down to 19,000. He remains on Lovenox 60 mg, prednisone 40 mg, Lasix was discontinued several days ago and currently is on fluid restriction 11/25/2022 Patient sitting in bed comfortable, mentation is at baseline, at bedside which confirms this. Patient abdominal distention is improving. He had NG tube which is taken TODAY by mistake, however with improvement with abdominal distention and abdominal pain patient is a started on liquid diet today. Kidney function improved down to 1.7, sodium 140, patient remains on D5W at 50 mL per hour. Low potassium 2.9. And replace per protocol and follow closely. Patient is having 4-5 bowel movements which helped him regarding his hepatic encephalopathy with his improved Patient also remains on a prednisone 40 mg COPD exacerbation. Yulia is in hold and currently is taking Lovenox therapeutic dose. Today I discussed medical problems and plan with the patient and at bedside and all questions answered to her satisfaction. We will lower his prednisone to 30 mg daily from tomorrow, he was taken. There is a 40 mg more than a week 11/26/2022 Patient is doing well today, his pleasant relaxed comfortable sitting in chair with no complaint. Denies any complaints stating that he is back to baseline creatinine is mentation. No chest pain abdominal pain no vomiting. No urinary complaints. He is hemodynamically stable possible trial on room air Labs also stable, he has stopped leukocytosis of 20,000 but this is thought secondary to steroid effect and is stable. No fever or other signs of infection. Already patient received antibiotics and currently he is asymptomatic. Hemoglobin is stable at 7.6 and we change his Lovenox back to his home dose of leg was 2.5 mg twice a day. Platelets also stable at 91,000. Creatinine is stable at 1.8. Patient is having regular bowel movement about 2-4 each day as he told me. No abdominal pain. He Liquid Diet and Advanced a 2 Regular Diet. And If He Tolerates That Well He Would Be Considered for Discharge Tomorrow Physical Therapist Evaluated Him Today and the Recommended Home with Home Care. Patient Remains on D5W Today. Lactulose 30 Mg Twice a Day. Tomorrow Last Dose of Zosyn and What May Be Changed to Augmentin upon Discharge. And He Is on Prednisone 30 Mg Which Will Be Tapered upon Discharge As Well Possible Discharge in 24-48 Hours Long-Term Prognosis Remains Guarded Given Complex Hospital Course, Multiple Complex Medical Problems and Age. 11/27/2022 Patient clinically significantly improved and he is back to normal costal normal. He denies any specific complaints Bed comfortable. He denies chest pain or dyspnea. He tolerates diet well. NG tube output. No abdominal pain or distention. He has regular bowel movement about 3 per day while he is on lactulose 30 mg twice daily. Prednisone dose IS been tapered Name is on liquids and remains on Zosyn . Patient may be considered for discharge home her sodium today was 122 and we stopped his D5W. Also his hemoglobin 7.1-7.2 STABLE but will close monitoring Physical therapy recommended home with home care 11/28/2022 Patient is seen and evaluated in follow-up with multiple medical consultations following. Patient extremely anxious and wanting to go home and awaiting follow-up labs. Hemoglobin was found to be 6.9 this morning and will give a unit of PRBC. Patient also continues with indwelling Ruiz catheter for retention and will continue for now with possible outpatient trial voiding and urology follow-up. Patient is being given gentle IV hydration with normal saline with nephrology following recommend follow-up labs. Sodium continues to be low. Encouraged oral intake and increased activity as tolerated. at the bedside and questions and concerns were answered. 11/29/2022 Patient is seen and evaluated in follow-up currently sitting up in the chair eating and tolerating and patient reports is having bowel movements. Patient had indwelling Ruiz catheter removed and is voiding a urinal. Multiple medical consultations following an sodium level has worsened on normal saline with nephrology following and is now 119. Nephrology recommending transfer to ICU for close monitoring and hypertonic solution. Switchboard Troubleshooter is following recommending repeat sodium level this afternoon prior to initiating hypertonic solution. Patient is afebrile denies chest pain or shortness of breath. Patient is currently on room air. Patient denies nausea or vomiting and tolerating diet. Patient denies abdominal pain and continues to be distended. 11/30/2022 Patient is seen and evaluated in follow-up continues to be in the ICU as patient was maintained on 3% hypertonic solution per nephrology. Patient follow-up sodium this morning is 125 and hypertonic solution has been placed on hold recommending follow-up sodium levels every few hours to monitor closely. Patient is afebrile with no reports of chest pain or shortness of breath. Patient tolerating diet with no reports of nausea or vomiting. Abdomen continues to be distended and general surgery following with no plans for surg ical intervention. Patient denies any abdominal pain. Patient reports is passing gas and having bowel movements and urinating with no difficulty. If hypertonic solution remains on hold patient may be moved out of the ICU. 12/01/2022 Patient is seen and evaluated in follow-up continues to be in ICU awaiting transfer and a possible next day if sodium remains improved. Sodium is 126 today with nephrology following was continued on gentle IV hydration of normal saline and hypertonic solution has been discontinued. Nephrology recommend monitoring another 24 hours with follow-up labs in a.m. Hemoglobin is stable above 7 with no active bleeding noted. Patient denies any chest pain or short ness of breath, no reports of nausea or vomiting and tolerating diet, continues to be extremely anxious to want to go home. Patient is maintained on fluid restrictions and will continue. Review of systems: Constitutional: No reports of fatigue, fever, or chills Cardiovascular: No reports of chest pain or palpitations Respiratory: No reports of worsening shortness of breath or cough GI: No reports of nausea, vomiting, or diarrhea : No reports of dysuria or retention, voiding in the urinal post Ruiz catheter removal Neurovascular: No reports of weakness or numbness All medications have been reviewed Physical exam: GENERAL: The patient is awake, alert and oriented 3, obese Well developed, well nourished. Obese. HEENT: Pupils are round and equally reacting to light. EOMI. No scleral icterus. No conjunctival pallor. Normocephalic, atraumatic. No pharyngeal erythema. No thyromegaly. CARDIOVASCULAR: S1 and S2 present. No murmurs, rubs, or gallops. PULMONARY: Breath sounds bilaterally with some scattered rhonchi noted ABDOMEN: Tense, no rebound tenderness or guarding, distended, normoactive bowel sounds. No palpable organomegaly. MUSCULOSKELETAL: No joint swelling or deformity. EXTREMITIES: No cyanosis, clubbing, patient has bilateral pitting leg edema improving. NEUROLOGICAL: Gross neurological examination did not reveal any focal deficits. SKIN: No rashes. no petechiae. Assessment: Acute abdominal tenderness with CT evidence of colonic ileus and possible append icitis, cannot exclude intra-abdominal sepsis, improving 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 Recent CT of the brain is negative. Improved Hyponatremia Acute diastolic CHF, acute exacerbation chronic kidney disease stage III Acute metabolic alkalosis, possibly exacerbated by contraction alkalosis. moderate to severe mitral regurgitation Severe pulmonary hypertension Mild COPD exacerbation Chronic atrial fibrillation GI prophylaxis DVT prophylaxis No code Plan: Patient continues to be in the ICU as patient was maintained on hypertonic solution is has been discontinued. Considering transferring out of the ICU today with multiple medical consultations following. Sodium is 126 and nephrology recommend monitoring with repeat labs in the a.m. Patient was continued on gentle IV hydration of normal saline and recommend continue fluid restrictions General surgery following with no plans for surgical intervention. Abdomen continues to be distended although patient denies any pain, nausea, or vomiting and reports to passing gas and having bowel movements. Indwelling Ruiz catheter was removed and patient is voiding with no difficulties diet has been advanced to regular and patient tolerating. Continue prednisone taper and patient will need outpatient follow-up with pulmon barbara No code Prognosis is guarded. Patient is high-risk for decompensation or complication. Long-term prognosis is also guarded. Patient high risk for readmission The impression and plan of care has been dictated by Danielle Olmos, Nurse Practitioner as directed. Dr. Jigna MD I have performed a history and examination and MDM of this patient, discussed the same with the dictator, and agree with the dictator's assessment and plan as written ,documented as a scribe. Based on total visit time, I have performed more than 50% of the visit. Objective - Vital Signs Vital signs: Vital Signs Temp 98.1 F 12/01/22 08:00 Pulse 69 12/01/22 08:03 Resp 16 12/01/22 08:00 BP 121/53 12/01/22 08:00 Pulse Ox 97 12/01/22 08:00 FiO2 28 11/17/22 08:36 Intake & Output 11/30/22 12/01/22 12/01/22 18:59 06:59 18:59 Intake Total 834 610 0 Output Total 780 200 375 Balance 54 410 -375 Weight 104.9 kg 105.9 kg Intake: IV 360 210 Sodium Chloride 0.9% 1, 300 210 000 ml @ 75 mls/hr IV . [id number] BRET Rx#:[id number] Sodium Chloride 3%( 60 Hypertonic) 500 ml @ 30 mls/hr IV .[id number] BRET Rx #:[id number] Intake, IV Titration 400 Amount Sodium Chloride 0.9% 1, 400 000 ml @ 50 mls/hr IV . Q20H BRET Rx#:[id number] Oral 474 0 Output: Urine 620 200 375 Post Void Residual 160 Other: Voiding Method Urinal Urinal Urinal # Voids 1 1 # Bowel Movements 1 - Labs CBC & Chem 7: 12/01/22 05:35 12/01/22 05:35 Labs: Abnormal Lab Results - Last 24 Hours (Table) 11/30/22 11/30/22 11/30/22 Range/Units 11:35 12:48 16:24 WBC (3.8-10.6) k/uL RBC (4.30-5.90) m/uL Hgb (13.0-17.5) gm/dL Hct (39.0-53.0) % MCV (80.0-100.0) fL MCH (25.0-35.0) pg RDW (11.5-15.5) % Plt Count (150-450) k/uL Neutrophils # (1.3-7.7) k/uL Macrocytosis Sodium 125 L (137-145) mmol/L BUN (9-20) mg/dL Creatinine (0.66-1.25) mg/dL Glucose (74-99) mg/dL POC Glucose (mg/dL) 224 H 261 H (70-110) mg/dL Calcium (8.4-10.2) mg/dL 11/30/22 11/30/22 12/01/22 Range/Units 17:23 20:21 05:35 WBC 12.4 H (3.8-10.6) k/uL RBC 1.93 L (4.30-5.90) m/uL Hgb 7.1 L (13.0-17.5) gm/dL Hct 21.9 L (39.0-53.0) % MCV 113.4 H (80.0-100.0) fL MCH 36.5 H (25.0-35.0) pg RDW 22.8 H (11.5-15.5) % Plt Count 47 L (150-450) k/uL Neutrophils # 10.4 H (1.3-7.7) k/uL Macrocytosis Marked A Sodium 124 L (137-145) mmol/L BUN (9-20) mg/dL Creatinine (0.66-1.25) mg/dL Glucose (74-99) mg/dL POC Glucose (mg/dL) 278 H (70-110) mg/dL Calcium (8.4-10.2) mg/dL 12/01/22 12/01/22 Range/Units 05:35 06:20 WBC (3.8-10.6) k/uL RBC (4.30-5.90) m/uL Hgb (13.0-17.5) gm/dL Hct (39.0-53.0) % MCV (80.0-100.0) fL MCH (25.0-35.0) pg RDW (11.5-15.5) % Plt Count (150-450) k/uL Neutrophils # (1.3-7.7) k/uL Macrocytosis Sodium 126 L (137-145) mmol/L BUN 52 H (9-20) mg/dL Creatinine 1.55 H (0.66-1.25) mg/dL Glucose 145 H (74-99) mg/dL POC Glucose (mg/dL) 178 H (70-110) mg/dL Calcium 7.5 L (8.4-10.2) mg/dL
[2022-12-02] MEDS: BUDESONIDE 0.5 MG/2 ML NEBU INHALATION SCH ×2 (07:21→20:10)
[2022-12-02] MEDS: IPRATROPIUM-ALBUTEROL 3 ML NEB INHALATION SCH ×3 (07:21→20:09)
[2022-12-02] MEDS: APIXABAN 2.5 MG TABLET PO SCH ×2 (08:37→20:16)
[2022-12-02] MEDS: POTASSIUM CHLORIDE ER 20 MEQ TAB.ER PO SCH (08:37)
[2022-12-02] MEDS: ATORVASTATIN 40 MG TAB PO SCH (08:37)
[2022-12-02] MEDS: FERROUS SULFATE 325 MG TAB PO SCH (08:38)
[2022-12-02] MEDS: THIAMINE 100 MG/ML 2 ML VIAL IVP SCH (08:38)
[2022-12-02] MEDS: predniSONE 10 MG TAB PO SCH (08:38)
[2022-12-02] MEDS: MULTIVITAMINS, THERA 1 EACH TAB PO SCH (08:38)
[2022-12-02] MEDS: LACTULOSE 20 GM/30 ML CUP PO SCH ×2 (08:44→20:13)
[2022-12-02] MEDS ORDERED: TOLVAPTAN 15 MG TABLET PO ONE (09:11)
[2022-12-02] MEDS: FUROSEMIDE 10 MG/ML 4 ML VIAL IV SCH ×2 (09:21→20:16)
[2022-12-02 09:35] LABS: Anisocytosis Moderate; Basophils % (A) 0 %; Eosinophils # (A) 0.2 k/uL (0-0.7); Eosinophils % (A) 2 %; HCT 23.8 % (39.0-53.0); HGB 7.2 gm/dL (13.0-17.5); Hypochromasia Moderate; Lymphocytes % (A) 9 %; MCHC 30.4 g/dL (31.0-37.0); Macrocytosis Marked; Mean Platelet Volume 13.3; Monocytes # (A) 0.7 k/uL (0-1.0); Monocytes % (A) 6 %; Neutrophils % (A) 81 %; Poikilocytosis Slight; RBC 2.07 m/uL (4.30-5.90); RDW 22.6 % (11.5-15.5); WBC 11.1 k/uL (3.8-10.6)
[2022-12-02 09:40] LABS: Platelet Count 45 k/uL (150-450)
[2022-12-02 09:41] LABS: African American GFR (CKD) 53 (>60 ml/min/1.73 sqM); Anion Gap 3 mmol/L; Blood Urea Nitrogen 52 mg/dL (9-20); Calcium 7.9 mg/dL (8.4-10.2); Carbon Dioxide 24 mmol/L (22-30); Chloride 104 mmol/L (98-107); Glucose 150 mg/dL (74-99); Non-African American GFR(CKD) 46 (>60 ml/min/1.73 sqM); Potassium 5.3 mmol/L (3.5-5.1); Sodium 131 mmol/L (137-145)
--- NOTE | 2022-12-02 09:51 | P.PN ---
Subjective Patient is seen in follow-up for acute kidney injury and hyponatremia. Renal function stable. Sodium level improved. Off IV fluids. Tolerating oral intake. Vital signs are stable. General: No acute distress. HEENT: Head exam is unremarkable. LUNGS: No audible rhonchi or wheezes. HEART: Rate and Rhythm are regular. ABDOMEN: Nontender, distention noted. EXTREMITITES: 1+ edema. Objective - Vital Signs Vital signs: Vital Signs Temp 97.9 F 12/02/22 08:00 Pulse 68 12/02/22 08:00 Resp 20 12/02/22 08:00 BP 110/61 12/02/22 08:00 Pulse Ox 98 12/02/22 08:00 FiO2 28 11/17/22 08:36 Intake & Output 12/01/22 12/02/22 12/02/22 18:59 06:59 18:59 Intake Total 750 300 300 Output Total 1175 801 Balance -425 -501 300 Weight 107 kg Intake: Oral 750 300 300 Output: Urine 1175 800 Stool 1 Other: Voiding Method Urinal Urinal Urinal - Labs CBC & Chem 7: 12/02/22 05:39 12/02/22 05:39 Labs: Abnormal Lab Results - Last 24 Hours (Table) 12/01/22 12/01/22 12/01/22 Range/Units 11:37 16:52 20:22 WBC (3.8-10.6) k/uL RBC (4.30-5.90) m/uL Hgb (13.0-17.5) gm/dL Hct (39.0-53.0) % MCV (80.0-100.0) fL MCHC (31.0-37.0) g/dL RDW (11.5-15.5) % Plt Count (150-450) k/uL Neutrophils # (1.3-7.7) k/uL Macrocytosis Sodium (137-145) mmol/L Potassium (3.5-5.1) mmol/L BUN (9-20) mg/dL Creatinine (0.66-1.25) mg/dL Glucose (74-99) mg/dL POC Glucose (mg/dL) 207 H 242 H 255 H (70-110) mg/dL Calcium (8.4-10.2) mg/dL 0712/02/22 12/02/22 Range/Units 05:39 05:39 06:32 WBC 11.1 H (3.8-10.6) k/uL RBC 2.07 L (4.30-5.90) m/uL Hgb 7.2 L (13.0-17.5) gm/dL Hct 23.8 L (39.0-53.0) % MCV 115.0 H (80.0-100.0) fL MCHC 30.4 L (31.0-37.0) g/dL RDW 22.6 H (11.5-15.5) % Plt Count 45 L (150-450) k/uL Neutrophils # 9.0 H (1.3-7.7) k/uL Macrocytosis Marked A Sodium 131 L (137-145) mmol/L Potassium 5.3 H (3.5-5.1) mmol/L BUN 52 H (9-20) mg/dL Creatinine 1.43 H (0.66-1.25) mg/dL Glucose 150 H (74-99) mg/dL POC Glucose (mg/dL) 168 H (70-110) mg/dL Calcium 7.9 L (8.4-10.2) mg/dL Assessment and Plan Plan: Assessment: 1. Acute kidney injury secondary to ATN secondary to cardiorenal syndrome. UA benign. No hydronephrosis noted on kidney ultrasound. Nonoliguric. Renal function improving. 2. Chronic kidney disease stage IIIA with baseline creatinine 1.2-1.4 secondary to nephrosclerosis. 3. Acute on chronic diastolic CHF with moderate to severe mitral regurgitation, moderate tricuspid regurgitation and severe pulmonary hypertension. 4. Volume overload. 5. Anemia. Iron replete. On Aranesp. 6. Coronary artery disease status post cardiac stenting. 7. Hyponatremia. Urine sodium less than 20 and urine osmolality 339 dated 11/28/2022. Status post 3% saline this admission. Now hypervolemic. Status post IV Lasix yesterday. TSH normal. 8. Ileus. NG tube removed. Surgery following. Plan: Added IV Lasix 40 mg twice daily. Maintain fluid restriction. Encouraged oral intake. Hold potassium supplement for now. Continue to monitor renal function and urine output.
--- NOTE | 2022-12-02 10:20 | P.PN ---
Subjective Progress Note Date: 12/02/22 Principal diagnosis: Pulmonary edema. The patient is seen today 11/22/2022 in follow-up on the selective care unit. He is currently awake and alert. Maintaining O2 saturations in the upper 90s on 4 L/m per nasal cannula. He's been afebrile. Hemodynamically stable. Computed tomography scan of the abdomen and pelvis revealed a dilated appendix with gas within the tip. There is some nonspecific surrounding fluid/stranding. Findings could be seen with acute appendicitis. Gas and stool filled dilated colon and rectum without focal transition point suggestive of an colonic ileus. 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 Hepatic cirrhosis with findings suggestive of portal hypertension with trace ascites and splenic collaterals. Right adrenal gland lipid rich adenoma. Nonobstructive bilateral renal calculi. Surgical services are following. Nasogastric tube has been placed. Today's chest x-ray reveals cardiomegaly. Chronic parenchymal changes without new focal airspace opacity, pleural effusion or pneumothorax. Blood cultures revealed no growth. White count 23.9. Hemoglobin 7.5. MCV is 122. Platelet count 73,000. Sodium 136. Potassium 3.1. Bicarb 30. BUN 59. Creatinine 1.74. Glucose 337. He is continued on DuoNeb inhalations, Pulmicort inhalations, prednisone taper. She is on Xifaxan, Zosyn, Levaquin. Lovenox for anticoagulation. The patient is seen today 11/23/2022 in follow-up on the selective care unit. He is awake, alert, oriented. Resting fairly comfortably in bed. Denies any worsening shortness of breath, cough or congestion. Denies any significant abdominal pain. Nasogastric tube remains in place. Chest x-ray reveals cardiomegaly. Chronic parenchymal changes without any new focal airspace opacities, pleural effusion or pneumothorax. He is maintaining good O2 saturations in the upper 90s on 2 L/m per nasal cannula. He is afebrile. Hemodynamically stable. White count 19.6. Hemoglobin 7.5. Platelets 94,000. Sodium 146. Potassium 2.9. Bicarb 33. BUN 65. Creatinine 1.94. Glucose 137. He remains on rifaximin and Zosyn. Continued on bronchodilators. Patient is seen today 11/24/2022 in follow-up on the selective care unit. He is resting comfortably in bed. He remains awake, alert, oriented. His is at the bedside. He is having bowel movements. Nasogastric tube remains in place. Blood cultures revealed no growth. Blood sugar 156. He is continued on DuoNeb inhalations. Prednisone taper. Remains on Zosyn. Remains on rifaximin. Anticoagulated with Lovenox. Continued on D5W at 50 MLS per hour. The patient is seen today 11/26/2022 in follow-up on the selective care unit. He remains awake and alert oriented. His is at the bedside. He is resting comfortably in bed. He is having bowel movements. Nasogastric tube has been discontinued. He is tolerating a liquid diet. Denies any abdominal discomfort. No nausea or vomiting. Blood cultures revealed no growth in blood glucose 174. He remains on DuoNeb inhalations, Pulmicort inhalations. Prednisone taper. Antibiotics in the form of Zosyn. Lovenox for anticoagulation. Progress note dated 11/27/2022. The patient is seen today in room 372. The patient apparently will not be discharged today, because his hemoglobin was 7.2, and his sodium was 122. The patient's on room air. The patient is not receiving any IV fluids. Clinically, the patient looks very safe, and could be discharged home from the pulmonary standpoint. White count is 19.8, hemoglobin 7.2, hematocrit 21.4, and platelet count of 72,000. Sodium is 122, potassium 4.1, chlorides 92, CO2 26, BUN 52, and creatinine 2.08. Blood cultures are negative. Progress note dated 11/28/2022. The patient is seen today in room 372. The patient was not discharged yesterday, because of a low hemoglobin of 7.2 and a low sodium of 123. The patient clinically is stable. He is on room air. He is not receiving any IV fluids and he was waiting for his lab results today. He has no new complaints today. Labs, currently pending at the time of this dictation. Blood cultures were negative. Progress note dated 11/29/2022. The patient is seen today in room 372. Sitting in a chair next to his bed. His is in the room with him. Yesterday, the patient received a unit of blood, because his hemoglobin was 6.9. Today, it 7.5. In addition, the patient's sodium today is 123. He is on room air. He's not receiving any IV fluids. His Ruiz catheter has been removed. He is hoping to be discharged today. White count is 19.9, hemoglobin 7.5, hematocrit 23, and platelet count a 61,000. Sodium 123, potassium 4, chlorides 95, CO2 21, BUN 52, and creatinine 1.81. Blood cultures are all negative. Progress note dated 11/30/2022. The patient is seen today in room 258. He was transferred to the intensive care unit, for ongoing hyponatremia. Nephrology wanted the patient to be placed on 3% saline infusion, and for that reason, he was transferred to the ICU. This morning's sodium was 125. 3% saline has been turned off. He is not receiving any additional IV fluids. He is on room air. He denies any abdominal pain. Hemoglobin is 7.6. White count 15.3, hemoglobin 7.6, hematocrit 22.8, and pl atelet count is 48,000. Sodium 125, potassium 4.2, chlorides 99, CO2 21, BUN 52, and creatinine 1.61. Blood cultures are negative. Chest x-ray shows a lower lobe infiltrate and/or atelectasis. Progress note dated 12/01/2022. The patient is seen today in room 258. The patient had an uneventful night. He is on room air. He is not receiving any IV fluids. This morning's sodium was 126. In our opinion, the patient could be discharged to the general medical floor, or, discharged home. White count 12.4, hemoglobin 7.1, hematocrit 21.9, with a platelet count of 47,000. Sodium this morning is 126, potassium 4.8, chlorides 102, CO2 23, BUN 52, and creatinine 1.55. Progress note dated 12/02/2022. The patient is seen today in room 258. The patient was transferred to the intensive care unit, because of low sodium. He did receive some 3% saline. His most recent sodium is 131. Clinically he is doing well. He has no complaints. He denies any abdominal pain. White count count is 11.1, hemoglobin 7.2, hematocrit 23.8, and a platelet count of 45,000. Sodium 131, potassium 5.3, ch lorides 104, CO2 24, BUN 52, creatinine 1.43. His TSH is normal. Objective - Vital Signs Vital signs: Vital Signs Temp 97.9 F 12/02/22 08:00 Pulse 68 12/02/22 08:00 Resp 20 12/02/22 08:00 BP 110/61 12/02/22 08:00 Pulse Ox 98 12/02/22 08:00 FiO2 28 11/17/22 08:36 Intake & Output 12/01/22 12/02/22 12/02/22 18:59 06:59 18:59 Intake Total 750 300 300 Output Total 1175 801 Balance -425 -501 300 Weight 107 kg Intake: Oral 750 300 300 Output: Urine 1175 800 Stool 1 Other: Voiding Method Urinal Urinal Urinal - Exam No acute distress, oriented 3. Currently on room air. Saturations are 98 %. HEENT examination is grossly unremarkable. Neck supple. Full range of motion. No adenopathy thyromegaly or neck vein distention. Cardiovascular examination reveals regular rhythm rate. S1-S2 normal. No S3 or S4. No discernible murmur noted. Heart rate 68 bpm. Lungs reveal clear breath sounds. Breath sounds are equal bilaterally. No adventitious lung sounds including wheezes rhonchi or crackles. Room air saturation is 98 %. Abdomen soft bowel sounds are heard. No masses or tenderness. Extremities are intact. No cyanosis clubbing or edema. Skin is without rash or lesion. Neurologic examination is brief but nonfocal. - Labs CBC & Chem 7: 12/02/22 05:39 12/02/22 05:39 Labs: Abnormal Lab Results - Last 24 Hours (Table) 12/01/22 12/01/22 12/01/22 Range/Units 11:37 16:52 20:22 WBC (3.8-10.6) k/uL RBC (4.30-5.90) m/uL Hgb (13.0-17.5) gm/dL Hct (39.0-53.0) % MCV (80.0-100.0) fL MCHC (31.0-37.0) g/dL RDW (11.5-15.5) % Plt Count (150-450) k/uL Neutrophils # (1.3-7.7) k/uL Macrocytosis Sodium (137-145) mmol/L Potassium (3.5-5.1) mmol/L BUN (9-20) mg/dL Creatinine (0.66-1.25) mg/dL Glucose (74-99) mg/dL POC Glucose (mg/dL) 207 H 242 H 255 H (70-110) mg/dL Calcium (8.4-10.2) mg/dL 12/02/22 12/02/22 12/02/22 Range/Units 05:39 05:39 06:32 WBC 11.1 H (3.8-10.6) k/uL RBC 2.07 L (4.30-5.90) m/uL Hgb 7.2 L (13.0-17.5) gm/dL Hct 23.8 L (39.0-53.0) % MCV 115.0 H (80.0-100.0) fL MCHC 30.4 L (31.0-37.0) g/dL RDW 22.6 H (11.5-15.5) % Plt Count 45 L (150-450) k/uL Neutrophils # 9.0 H (1.3-7.7) k/uL Macrocytosis Marked A Sodium 131 L (137-145) mmol/L Potassium 5.3 H (3.5-5.1) mmol/L BUN 52 H (9-20) mg/dL Creatinine 1.43 H (0.66-1.25) mg/dL Glucose 150 H (74-99) mg/dL POC Glucose (mg/dL) 168 H (70-110) mg/dL Calcium 7.9 L (8.4-10.2) mg/dL Assessment and Plan Assessment: Acute hepatic encephalopathy, suspect liver cirrhosis secondary to remote alcohol abuse. Computed tomography scan of the abdomen and pelvis revealed a dilated appendix with gas within the tip. There is some nonspecific surrounding fluid/stranding. Findings could be seen with acute appendicitis. Gas and stool filled dilated colon and rectum without focal transition point suggestive of an colonic ileus. 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 Hepatic cirrhosis with findings suggestive of portal hypertension with trace ascites and splenic collaterals. Right adrenal gland lipid rich adenoma. Nonobstructive bilateral renal calculi. Surgical services are following. Naso gastric tube has been placed and subsequently removed. Tolerating a liquid diet. Persistent hyponatremia, improved. Sodium today is 131. Altered mental status secondary to above, acute metabolic toxic encephalopathy, improved. Acute diastolic congestive heart failure. Acute on chronic kidney disease. Acute metabolic alkalosis secondary to diuretics. Moderate severe pulmonary hypertension. Moderate severe mitral regurgitation. History of mild COPD. Chronic atrial fibrillation. History of colonic polyps. Type 2 diabetes with diabetic nephropathy. History of CVA without any residual deficit. Plan: Plan dated 11/27/2022. The patient's overall pulmonary status is very stable. He's on room air. NG tube is been removed. The patient could be considered for discharge, but tells me he has not been discharged because his hemoglobin is only 7.2, sodium is 122. Those will be repeated. Clinically he is very stable. Labs, x-rays, and medications are reviewed. The patient does continue on Zosyn. Prognosis is guarded. The patient is a DO NOT RESUSCITATE patient. Plan dated 11/28/2022. The patient's overall pulmonary status is very stable. He's on room air. NG tube is been removed. The patient was not discharged yesterday, because his sodium was 123, and his hemoglobin was 7.2. Labs, currently still pending from today. The patient continues on Zosyn. The patient is a DO NOT RESUSCITATE patient. Clinically, he is very stable. He has no specific complaints. From the pulmonary standpoint, the patient could be discharged when other physicians and consultants, agree. Plan dated 11/29/2022. The patient's hemoglobin was 6.9 yesterday, so he received 1 unit of packed red blood cells. The patient's sodium level was 123. We will continue to follow the patient and make recommendations along. The patient is hoping to be discharged soon. Clinically, he appears very stable. He sitting in a chair next to his bed. He denies any shortness of breath, cough, wheezing, chest tightness, or phlegm production. Labs, x-rays, and all medications are reviewed. Plan dated 11/30/2022. The patient's sodium this morning was 125. The patient's on room air. He's not receiving any IV fluids. 3% saline has been discontinued. Hemoglobin this morning is 7.6. From the pulmonary standpoint, the patient could be considered for possible discharge, or transferred out to the general medical floor. A repeat sodium is pending. Additional recommendations and suggestions are forthcoming. Prognosis is guarded. Plan dated 12/01/2022. The patient's sodium this morning was 126. The patient is not receiving any supplemental oxygen, or IV fluids as transferred into the intensive care unit for 3% saline, which she received, and has been completed. The patient is stable for discharge to the general medical floor, or, could be discharged home. We'll leave that up to the primary service. No additional recommendations are made. Labs, x-rays, and medications are reviewed. Plan dated 12/02/2022. Yesterdays sodium was 126. Todays sodium is 131. The rest of the labs, are reviewed. The patient is doing well clinically. He denies any shortness of breath, cough, wheezing, chest tightness, or phlegm production. He also denies any chest pain or pressure. He denies any abdominal complaints such as pain or indigestion. From our perspective, the patient could be discharged. No additional recommendations are made. The patient could be discharged out of the unit, and to the general medical floor, or from out of the unit, to home. Time with Patient: Less than 30
[2022-12-02 11:34] LABS: Glucose,Whole Blood 187 mg/dL (70-110)
[2022-12-02 14:28] VITALS: RESP 18
--- NOTE | 2022-12-02 14:56 | P.PN ---
Subjective Progress Note Date: 12/02/22 This is a pleasant 82 years old male with multiple medical problems including history of heart failure presents with worsening dyspnea and leg swelling on and he was found with fluid overload secondary to diastolic CHF, echocardiogram from 09/2022 showing ejection fraction 55%. Currently cardiolo lucio signed off the case and patient being monitored closely by nephrology team. He remains on Lasix drip 10 mg/h, creatinine 1.4, 1.6 and 2.1. Discuss case with nephrology team who recommended to keep the Lasix drip for now. Pulmonary team on the case for mild COPD exacerbation and currently on a prednisone 40 mg. Hemoglobin 7.8. 11/17/2022 patient CHF and fluid overload improving, his oxygen saturation is acceptable and wants only with minimal crepitation mainly on the right side however he still have 2+ leg edema. However patient developed more alkalosis therefore Lasix drip was stopped and started on torsemide while the dose for Zaroxolyn was lowered to 2.5 mg. Creatinine is stable at 2.0 compared to 1.4 on admission. However patient become more confused today most likely secondary to metabolic encephalopathy and toxic encephalopathy. No recent fall. Patient fell about 3 days ago at that time CT of the brain was negative. Workup showing ammonia level is high at 255 and lactulose is added. We will continue neuro check and consider repeat CT of the brain condition worsens Pressure applied with sponge gel to bleeding superficial ulcer on the right forearm. 11/18/2022 Patient still confused and sleepy this morning from yesterday he got worse significantly. There is no new symptoms, he slipped with the And tachycardic. He had low-grade temperature of 99.8. Leukocytosis worsened 10.5 up to 17,000. Chest x-ray and urinalysis were repeated they were negative for acute process. Risks of flaps looks stable. Creatinine 1.9 which is a stable but higher than baseline because he was on Lasix drip. The sixth rib. Now, torsemide is only once daily. Also patient started on normal saline 75 mL/h Patient continued on prednisone 40 mg once a Eliquis area We will send blood culture and check liver ultrasound as liver enzymes and bilirubin only mildly elevated although this is not very new. Plan discussed with staff and bedside nurse more than once. 11/19/2022 Patient slightly improving regarding his mentation, he still confused sleepy and does not respond to verbal or tactile stimuli but he opens his eyes from moving in bed to some degree which she was not doing its yesterday. His ammonia level is elevated yesterday to 55 and liver ultrasound showing possible liver cirrhosis which is most likely related to alcoholic liver cirrhosis. GI team. He is started on lactulose and ammonia level improved and 48. Also he remains on normal saline at 50 mL/h, alert from 75 mm/h for acute kidney injury and metabolic abnormalities including contraction alkalosis. Check labs tomorrow 11/20/2022 Patient is more awake and interactive significantly better than yesterday and he can answer some questions but still confused and not quite back to his baseline. However patient denies any pain or specific symptoms. He has frequent bowel movements. GI team on the case for his hepatic encephalopathy and his lactulose dose was increased to 30 mg 3 times a day and rifaximin is added. Sodium 148 and patient started on D5 W Creatinine improving down to 1.6. Patient remains on prednisone 40 mg 11/21/2022 Patient today sitting up in bed with sitter at bedside for safety, patient still little confused to the surrounding but improved compared to yesterday. Patient is not eating well he starts complaining from abdominal pain and tenderness today,(yesterday his abdomen was not tender on exam) on exam he had distention and tenderness periumbilical area, computed tomography scan of the abdomen and pelvis was obtained showing gas appendix suspicious for appendicitis and dilated bowel with no transitions zone suspicious for ileus. Patient hemodynamically stable and is afebrile, tachycardia improved. Ammonia improved to baseline yesterday. Creatinine is stable and improved down to 1.6. Hemoglobin is stable at 8.1 and he has mild leukocytosis. Patient was started on Zosyn with surgery to consult I discussed the case with Gen. surgery evaluated the patient 11/22/2022 Patient today still tired and lethargic. But he wakes up and talk to family and at bedside and mentation improved since she started on lactulose. However he developed ileus and abdominal tenderness yesterday and there was suspicion of gas and the appendix suspicious for acute appendicitis, I discussed the case with surgery team and Dr. Begum we are not sure if this is a case of acute appendicitis however it is not entirely excluded or abdominal sepsis especially in view of his abdominal tenderness ileus and abdominal distention. Patient is not able to eat. NG tube was placed in the morning but no output. His labs showing worsening leukocytosis up to 23,000, hemoglobin slightly less 7.5, platelets slightly less at 70 3K, creatinine is slightly up 1.7. Because of this was started on Zosyn yesterday for covering gram-negative and an aerobic microorganisms and we are going to add Levaquin intravenously for better gram-negative coverage given his worsening situation area Of note ammonia level down to 11 and sodium level improved to normal at 136 today. He is hemodynamically stable and afebrile. He was started on normal saline 50 mL/h. Also continued on prednisone 40 mg, rifaximin 550 mg which is another antibiotic. He is still on lactulose 30 g and breathing treatment I talked to the at bedside that's is a very good surgical candidate if surgical intervention is warranted given his a newly diagnosed liver cirrhosis and decompensated liver function Avalide verbalized understanding and acceptance this information. Also she understands that his prognosis is very guarded. Patient is high-risk for deterioration despite treatment. And I told the even if his 5 this episode given his multiple progressive problems with the complication make his long-term prognosis poor as well. She verbalized understanding and acceptance. Currently patient already no good Diuretics are held Alk phos was held Discussed with staff 11/23/2022 patient today showed drastic improvement in his mentation that his back to baseline fully awake and oriented, still feels tired overall and generally He still have NG tube in a Place and hemocculted up twice to has to be inserted, draining dark brown discharge. About 100 mL in the bag. Abdominal distention also less abdominal tenderness is the severe compared to yesterday He had some very small bowel movement. But they denies chest pain or dyspnea He remains on D5W at 50 mL/h. Also remains on antibiotic with Zosyn and rifaximin, home dose of all liquids, prednisone 40 mg and lactulose 11/24/2022 Since yesterday's mentation is starts improving and today he is even more awake and alert back to baseline as per at bedside. NG tube in place with dark aspirate, less than 100 mL he ended bag. No abdominal pain or tenderness, abdominal distention is improved. He had several bowel movements. Creatinine is stable at 1.8. Platelets 94, hemoglobin same as 7.5, and WBC trending down to 19,000. He remains on Lovenox 60 mg, prednisone 40 mg, Lasix was discontinued several days ago and currently is on fluid restriction 11/25/2022 Patient sitting in bed comfortable, mentation is at baseline, at bedside which confirms this. Patient abdominal distention is improving. He had NG tube which is taken TODAY by mistake, however with improvement with abdominal distention and abdominal pain patient is a started on liquid diet today. Kidney function improved down to 1.7, sodium 140, patient remains on D5W at 50 mL per hour. Low potassium 2.9. And replace per protocol and follow closely. Patient is having 4-5 bowel movements which helped him regarding his hepatic encephalopathy with his improved Patient also remains on a prednisone 40 mg COPD exacerbation. Yulia is in hold and currently is taking Lovenox therapeutic dose. Today I discussed medical problems and plan with the patient and at bedside and all questions answered to her satisfaction. We will lower his prednisone to 30 mg daily from tomorrow, he was taken. There is a 40 mg more than a week 11/26/2022 Patient is doing well today, his pleasant relaxed comfortable sitting in chair with no complaint. Denies any complaints stating that he is back to baseline creatinine is mentation. No chest pain abdominal pain no vomiting. No urinary complaints. He is hemodynamically stable possible trial on room air Labs also stable, he has stopped leukocytosis of 20,000 but this is thought secondary to steroid effect and is stable. No fever or other signs of infection. Already patient received antibiotics and currently he is asymptomatic. Hemoglobin is stable at 7.6 and we change his Lovenox back to his home dose of leg was 2.5 mg twice a day. Platelets also stable at 91,000. Creatinine is stable at 1.8. Patient is having regular bowel movement about 2-4 each day as he told me. No abdominal pain. He Liquid Diet and Advanced a 2 Regular Diet. And If He Tolerates That Well He Would Be Considered for Discharge Tomorrow Physical Therapist Evaluated Him Today and the Recommended Home with Home Care. Patient Remains on D5W Today. Lactulose 30 Mg Twice a Day. Tomorrow Last Dose of Zosyn and What May Be Changed to Augmentin upon Discharge. And He Is on Prednisone 30 Mg Which Will Be Tapered upon Discharge As Well Possible Discharge in 24-48 Hours Long-Term Prognosis Remains Guarded Given Complex Hospital Course, Multiple Complex Medical Problems and Age. 11/27/2022 Patient clinically significantly improved and he is back to normal costal normal. He denies any specific complaints Bed comfortable. He denies chest pain or dyspnea. He tolerates diet well. NG tube output. No abdominal pain or distention. He has regular bowel movement about 3 per day while he is on lactulose 30 mg twice daily. Prednisone dose IS been tapered Name is on liquids and remains on Zosyn . Patient may be considered for discharge home her sodium today was 122 and we stopped his D5W. Also his hemoglobin 7.1-7.2 STABLE but will close monitoring Physical therapy recommended home with home care 11/28/2022 Patient is seen and evaluated in follow-up with multiple medical consultations following. Patient extremely anxious and wanting to go home and awaiting follow-up labs. Hemoglobin was found to be 6.9 this morning and will give a unit of PRBC. Patient also continues with indwelling Ruiz catheter for retention and will continue for now with possible outpatient trial voiding and urology follow-up. Patient is being given gentle IV hydration with normal saline with nephrology following recommend follow-up labs. Sodium continues to be low. Encouraged oral intake and increased activity as tolerated. at the bedside and questions and concerns were answered. 11/29/2022 Patient is seen and evaluated in follow-up currently sitting up in the chair eating and tolerating and patient reports is having bowel movements. Patient had indwelling Ruiz catheter removed and is voiding a urinal. Multiple medical consultations following an sodium level has worsened on normal saline with nephrology following and is now 119. Nephrology recommending transfer to ICU for close monitoring and hypertonic solution. Shovel Engineer is following recommending repeat sodium level this afternoon prior to initiating hypertonic solution. Patient is afebrile denies chest pain or shortness of breath. Patient is currently on room air. Patient denies nausea or vomiting and tolerating diet. Patient denies abdominal pain and continues to be distended. 11/30/2022 Patient is seen and evaluated in follow-up continues to be in the ICU as patient was maintained on 3% hypertonic solution per nephrology. Patient follow-up sodium this morning is 125 and hypertonic solution has been placed on hold recommending follow-up sodium levels every few hours to monitor closely. Patient is afebrile with no reports of chest pain or shortness of breath. Patient tolerating diet with no reports of nausea or vomiting. Abdomen continues to be distended and general surgery following with no plans for surg ical intervention. Patient denies any abdominal pain. Patient reports is passing gas and having bowel movements and urinating with no difficulty. If hypertonic solution remains on hold patient may be moved out of the ICU. 12/01/2022 Patient is seen and evaluated in follow-up continues to be in ICU awaiting transfer and a possible next day if sodium remains improved. Sodium is 126 today with nephrology following was continued on gentle IV hydration of normal saline and hypertonic solution has been discontinued. Nephrology recommend monitoring another 24 hours with follow-up labs in a.m. Hemoglobin is stable above 7 with no active bleeding noted. Patient denies any chest pain or juan rtness of breath, no reports of nausea or vomiting and tolerating diet, continues to be extremely anxious to want to go home. Patient is maintained on fluid restrictions and will continue. 12/02/2022 Patient is seen and evaluated in follow-up continues to be in ICU available for downgrade to the selective unit once a bed is available. Nephrology following closely and follow-up labs show sodium level of 131. Potassium slightly elevated at 5.3 and creatinine is trending down at 1.43. Nephrology recommending IV Lasix twice daily with close monitoring and repeat labs in a.m. Patient is tolerating diet with no reports of nausea or vomiting and reports to passing gas, having bowel movements and is urinating. Patient will be transferred to [facility] once a bed is available. Review of systems: Constitutional: No reports of fatigue, fever, or chills Cardiovascular: No reports of chest pain or palpitations Respiratory: No reports of worsening shortness of breath or cough GI: No reports of nausea, vomiting, or diarrhea : No reports of dysuria or retention, voiding in the urinal post Ruiz catheter removal Neurovascular: No reports of weakness or numbness All medications have been reviewed Physical exam: GENERAL: The patient is awake, alert and oriented 3, obese Well developed, well nourished. Obese. HEENT: Pupils are round and equally reacting to light. EOMI. No scleral icterus. No conjunctival pallor. Normocephalic, atraumatic. No pharyngeal erythema. No thyromegaly. CARDIOVASCULAR: S1 and S2 present. No murmurs, rubs, or gallops. PULMONARY: Breath sounds bilaterally with some scattered rhonchi noted ABDOMEN: Tense, no rebound tenderness or guarding, distended, normoactive bowel sounds. No palpable organomegaly. MUSCULOSKELETAL: No joint swelling or deformity. EXTREMITIES: No cyanosis, clubbing, patient has bilateral pitting leg edema improving. NEUROLOGICAL: Gross neurological examination did not reveal any focal deficits. SKIN: No rashes. no petechiae. 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 Recent CT of the brain is negative. Improved Hyponatremia, improving currently 131 today Acute diastolic CHF, acute exacerbation chronic kidney disease stage III Acute metabolic alkalosis, possibly exacerbated by contraction alkalosis. moderate to severe mitral regurgitation Severe pulmonary hypertension Mild COPD exacerbation Chronic atrial fibrillation GI prophylaxis DVT prophylaxis No code Plan: Patient continues to be in the ICU as patient was maintained on hypertonic solution is has been discontinued. Patient to transfer out of the ICU today with multiple medical consultations following. Sodium is 131 and nephrology recommend monitoring with repeat labs in the a.m. patient is continued on fluids frictions and now transitioned to IV Lasix twice daily and will follow-up with repeat labs. General surgery following with no plans for surgical intervention. Abdomen continues to be distended although patient denies any pain, nausea, or vomiting and reports to passing gas and having bowel movements. diet has been advanced to regular and patient tolerating. Continue prednisone taper and patient will need outpatient follow-up with pulmonary No code Prognosis is guarded. Patient is high-risk for decompensation or complication. Long-term prognosis is also guarded. Patient high risk for readmission Once labs are improved and maintained will discuss further with nephrology in the a.m. and consider possible discharge in 24 hours The impression and plan of care has been dictated by Danielle Olmos, Nurse Practitioner as directed. Dr. Jigna MD I have performed a history and examination and MDM of this patient, discussed the same with the dictator, and agree with the dictator's assessment and plan as written ,documented as a scribe. Based on total visit time, I have performed more than 50% of the visit. Objective - Vital Signs Vital signs: Vital Signs Temp 97.9 F 12/02/22 08:00 Pulse 68 12/02/22 08:00 Resp 20 12/02/22 08:00 BP 110/61 12/02/22 08:00 Pulse Ox 98 12/02/22 08:00 FiO2 28 11/17/22 08:36 Intake & Output 12/01/22 12/02/22 12/02/22 18:59 06:59 18:59 Intake Total 750 300 300 Output Total 1175 801 Balance -425 -501 300 Weight 107 kg Intake: Oral 750 300 300 Output: Urine 1175 800 Stool 1 Other: Voiding Method Urinal Urinal Urinal - Labs CBC & Chem 7: 12/02/22 05:39 12/02/22 05:39 Labs: Abnormal Lab Results - Last 24 Hours (Table) 12/01/22 12/01/22 12/01/22 Range/Units 11:37 16:52 20:22 POC Glucose (mg/dL) 207 H 242 H 255 H (70-110) mg/dL 12/02/22 Range/Units 06:32 POC Glucose (mg/dL) 168 H (70-110) mg/dL
[2022-12-02 16:13] LABS: Glucose,Whole Blood 246 mg/dL (70-110)
[2022-12-02] MEDS: TAMSULOSIN 0.4 MG CAP.ER.24H PO SCH (20:16)
[2022-12-02 20:29] LABS: Glucose,Whole Blood 304 mg/dL (70-110)
[2022-12-02] MEDS: LATANOPROST 0.005% OPHTH DROPS 2.5 ML BTL BOTH EYES SCH (20:46)
[2022-12-02] MEDS: DORZOLAMIDE-TIMOLOL 2.23%/0.68 10ML BTL BOTH EYES SCH (20:46)
[2022-12-03 06:01] LABS: African American GFR (CKD) 55 (>60 ml/min/1.73 sqM); Anion Gap 2 mmol/L; Blood Urea Nitrogen 50 mg/dL (9-20); Calcium 8.2 mg/dL (8.4-10.2); Carbon Dioxide 24 mmol/L (22-30); Chloride 103 mmol/L (98-107); Glucose 132 mg/dL (74-99); Non-African American GFR(CKD) 48 (>60 ml/min/1.73 sqM); Potassium 5.5 mmol/L (3.5-5.1); Sodium 129 mmol/L (137-145)
[2022-12-03 06:24] LABS: Glucose,Whole Blood 159 mg/dL (70-110)
[2022-12-03] MEDS: PANTOPRAZOLE 40 MG TABLET PO SCH (06:36)
[2022-12-03] MEDS: INSULIN ASPART (NovoLOG) 100 UNIT/ML VIAL SQ SCH ×2 (06:36→11:40)
[2022-12-03 07:13] VITALS: BP 109/58; TEMP 98.6
[2022-12-03] MEDS: IPRATROPIUM-ALBUTEROL 3 ML NEB INHALATION SCH (08:53)
[2022-12-03] MEDS: BUDESONIDE 0.5 MG/2 ML NEBU INHALATION SCH (08:53)
[2022-12-03 08:56] VITALS: PULSE 60
[2022-12-03] MEDS ORDERED: SODIUM ZIRCONIUM CYCLOSILICATE 10 GM PACKET PO SCH (09:00)
[2022-12-03] MEDS: MULTIVITAMINS, THERA 1 EACH TAB PO SCH (09:18)
[2022-12-03] MEDS: FUROSEMIDE 10 MG/ML 4 ML VIAL IV SCH (09:18)
[2022-12-03] MEDS: FERROUS SULFATE 325 MG TAB PO SCH (09:18)
[2022-12-03] MEDS: APIXABAN 2.5 MG TABLET PO SCH (09:18)
[2022-12-03] MEDS: LACTULOSE 20 GM/30 ML CUP PO SCH (09:19)
[2022-12-03] MEDS: predniSONE 10 MG TAB PO SCH (09:19)
[2022-12-03] MEDS: ATORVASTATIN 40 MG TAB PO SCH (09:19)
[2022-12-03] MEDS: THIAMINE 100 MG/ML 2 ML VIAL IVP SCH (09:19)
--- NOTE | 2022-12-03 10:55 | P.PN ---
Subjective Patient is seen in follow-up for acute kidney injury and hyponatremia. Renal function stable. Sodium level slightly down compared to yesterday. On IV Lasix. Nonoliguric. Tolerating oral intake. Vital signs are stable. General: No acute distress. HEENT: Head exam is unremarkable. LUNGS: No audible rhonchi or wheezes. HEART: Rate and Rhythm are regular. ABDOMEN: Nontender, distention noted. EXTREMITITES: 1+ edema. Objective - Vital Signs Vital signs: Vital Signs Temp 98.6 F 12/03/22 06:38 Pulse 60 12/03/22 09:14 Resp 18 12/03/22 06:38 BP 109/58 12/03/22 06:38 Pulse Ox 96 12/03/22 08:53 FiO2 28 11/17/22 08:36 Intake & Output 12/02/22 12/03/22 12/03/22 18:59 06:59 18:59 Intake Total 500 Output Total 501 Balance -1 Intake: Oral 500 Output: Urine 500 Stool 1 Other: Voiding Method Urinal Urinal Urinal # Voids 1 3 - Labs CBC & Chem 7: 12/02/22 05:39 12/03/22 04:30 Labs: Abnormal Lab Results - Last 24 Hours (Table) 12/02/22 12/02/22 12/02/22 Range/Units 11:32 16:11 20:27 Sodium (137-145) mmol/L Potassium (3.5-5.1) mmol/L BUN (9-20) mg/dL Creatinine (0.66-1.25) mg/dL Glucose (74-99) mg/dL POC Glucose (mg/dL) 187 H 246 H 304 H (70-110) mg/dL Calcium (8.4-10.2) mg/dL 12/03/22 12/03/22 Range/Units 04:30 06:22 Sodium 129 L (137-145) mmol/L Potassium 5.5 H (3.5-5.1) mmol/L BUN 50 H (9-20) mg/dL Creatinine 1.37 H (0.66-1.25) mg/dL Glucose 132 H (74-99) mg/dL POC Glucose (mg/dL) 159 H (70-110) mg/dL Calcium 8.2 L (8.4-10.2) mg/dL Assessment and Plan Plan: Assessment: 1. Acute kidney injury secondary to ATN secondary to cardiorenal syndrome. UA benign. No hydronephrosis noted on kidney ultrasound. Nonoliguric. Renal function improving. Creatinine 1.37 today. 2. Chronic kidney disease stage IIIA with baseline creatinine 1.2-1.4 secondary to nephrosclerosis. 3. Acute on chronic diastolic CHF with moderate to severe mitral regurgitation, moderate tricuspid regurgitation and severe pulmonary hypertension. 4. Volume overload. 5. Anemia. Iron replete. On Aranesp. 6. Coronary artery disease status post cardiac stenting. 7. Hyponatremia. Urine sodium less than 20 and urine osmolality 339 dated 11/28/2022. Status post 3% saline this admission. Now hypervolemic. On IV Lasix. TSH normal. 8. Ileus. NG tube removed. Surgery following. 9. Hyperkalemia secondary to acute kidney injury. Plan: Change Lasix to 40 mg orally twice daily. Maintain fluid restriction. Encouraged oral intake. Low potassium diet. Potassium supplementation discontinued. Continue to monitor renal function and urine output. Add lokema 10 g qday x 4 days. Repeat BMP and magnesium level 2-3 days postdischarge. Follow up outpatient in 1 week. Advised patient to monitor his weight closely at home and to notify physician if gains more than 3 pounds in 1 week duration or edema worsens. Also advised to maintain low salt diet and fluid restriction of less than 50 ounces per day.
--- NOTE | 2022-12-03 11:08 | P.PN ---
Subjective Progress Note Date: 12/03/22 CHIEF COMPLAINT: Shortness of breath HISTORY OF PRESENT ILLNESS: Patient regular medical floor. Denies any abdominal pain. He is tolerating diet. He is having bowel movements. Afebrile. Sodium 129 potassium 5.5 creatinine 1.37 PHYSICAL EXAM: VITAL SIGNS: Reviewed. GENERAL: Well-developed in no acute distress. ABDOMEN: Soft. Distended. Nontender NEUROLOGIC: Patient is awake and alert ASSESSMENT: 1. Colonic ileus improved 2. Appendicitis ruled out. No evidence of acute appendicitis on CAT scan. Fluid around the appendix is likely ascites 3. hepatic encephalopathy with alcoholic cirrhosis 4. CHF exacerbation 5. Hyponatremia PLAN: -No surgical intervention planned -Continue supportive care -Continue Renal diet -Okay to discharge from surgical service standpoint when medically cleared Physician Rod Mill Operator note has been reviewed by physician. Signing provider agrees with the documented findings, assessment, and plan of care. Objective - Vital Signs Vital signs: Vital Signs Temp 98.6 F 12/03/22 06:38 Pulse 60 12/03/22 09:14 Resp 18 12/03/22 06:38 BP 109/58 12/03/22 06:38 Pulse Ox 96 12/03/22 08:53 FiO2 28 11/17/22 08:36 Intake & Output 12/02/22 12/03/22 12/03/22 18:59 06:59 18:59 Intake Total 500 Output Total 501 Balance -1 Intake: Oral 500 Output: Urine 500 Stool 1 Other: Voiding Method Urinal Urinal Urinal # Voids 1 3 - Labs CBC & Chem 7: 12/02/22 05:39 12/03/22 04:30 Labs: Abnormal Lab Results - Last 24 Hours (Table) 12/02/22 12/02/22 12/02/22 Range/Units 11:32 16:11 20:27 Sodium (137-145) mmol/L Potassium (3.5-5.1) mmol/L BUN (9-20) mg/dL Creatinine (0.66-1.25) mg/dL Glucose (74-99) mg/dL POC Glucose (mg/dL) 187 H 246 H 304 H (70-110) mg/dL Calcium (8.4-10.2) mg/dL 12/03/22 12/03/22 Range/Units 04:30 06:22 Sodium 129 L (137-145) mmol/L Potassium 5.5 H (3.5-5.1) mmol/L BUN 50 H (9-20) mg/dL Creatinine 1.37 H (0.66-1.25) mg/dL Glucose 132 H (74-99) mg/dL POC Glucose (mg/dL) 159 H (70-110) mg/dL Calcium 8.2 L (8.4-10.2) mg/dL
[2022-12-03 11:13] LABS: Glucose,Whole Blood 234 mg/dL (70-110)
[2022-12-03] MEDS ORDERED: FUROSEMIDE 40 MG TAB PO SCH (16:00)
--- NOTE | 2022-12-03 19:26 | P.DS ---
Providers Date of admission: 11/08/22 19:11 Expected date of discharge: 12/03/22 Attending physician: Sonido Benito Consults: 11/08/22 19:11 Consult Physician Routine Consulting Provider: [facility] Consult Reason/Comments: Acute pulmonary edema Do you want consulting provider notified?: Yes 11/12/22 11:38 Consult Physician Routine Consulting Provider: Bree Cancino Consult Reason/Comments: IV lasix; renal function Do you want consulting provider notified?: Yes 11/12/22 11:40 Consult Physician Routine Consulting Provider: Riddhi Hamilton Consult Reason/Comments: COPD Do you want consulting provider notified?: Yes 11/12/22 13:04 Consult Physician Routine Consulting Provider: Bree Cancino Consult Reason/Comments: CKD, fluid overload Do you want consulting provider notified?: Yes 11/21/22 10:48 Consult Physician Urgent Consulting Provider: Ivan Blancas Consult Reason/Comments: colonic ileus , possible appendecitis Do you want consulting provider notified?: Yes Primary care physician: Balbir Arreaga Hospital Course: Final diagnosis Acute abdominal tenderness with CT evidence of colonic ileus, appendicitis ruled out, cannot exclude intra-abdominal sepsis, improving 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 Recent CT of the brain is negative. Improved Hyponatremia Acute diastolic CHF, acute exacerbation chronic kidney disease stage III Acute metabolic alkalosis, possibly exacerbated by contraction alkalosis. moderate to severe mitral regurgitation Severe pulmonary hypertension Mild COPD exacerbation Chronic atrial fibrillation GI prophylaxis DVT prophylaxis No code Discharge disposition Patient is being discharged in a stable condition with guarded prognosis to home with home care. Patient will follow-up with Dr. Arreaga in the outpatient setting upon discharge. Patient is to continue with 6 twice daily and close outpatient follow-up with labs in the next 2-3 days. Patient also follow-up with nephrology, cardiology, GI, and pulmonary as scheduled. Total time taken is greater than 35 minutes. Hospital course This is a 82-year-old male who was recently admitted with shortness of breath and found to have CHF along with COPD exacerbation. Patient has had significant issues with electrolyte imbalances including severe hyponatremia requiring 3% solution. Patient has improved and is currently 129. Strongly recommend outpa tient follow-up with nephrology this week with repeat labs. Patient also had abdominal distention with evidence of colonic ileus on CT and was evaluated and monitored closely by general surgery. No plans for surgical intervention and patient is high risk with significant comorbidities. Patient is having bowel movements and passing gas. Patient to continue with lactulose daily. Patient will need follow-up with general surgery as well. Patient has been cleared by consultations and was instructed to follow-up with primary care provider this week. Please refer to consultation notes for further HPI. Currently no reports of chest pain, shortness of breath, or palpitations. Patient is afebrile. No reports of nausea or vomiting and patient is tolerating diet. Patient will be discharged home today. Extremely guarded prognosis and high risk for readmissions given patient's significant comorbidities. Physical exam: Gen: This is a 82-year-old male who is awake, alert and oriented 3, well- developed, well-nourished, obese HEENT: Head is atraumatic, normocephalic. Pupils equal, round. Sclerae is anicteric. NECK: Supple. No JVD. No lymphadenopathy. No thyromegaly. LUNGS: Clear to auscultation. No wheezes or rhonchi. No intercostal retractions. HEART: Regular rate and rhythm. No murmur. ABDOMEN: taut. Obese. Distended. Bowel sounds are present. No masses. No tenderness. EXTREMITIES: No pedal edema. No calf tenderness. NEUROLOGICAL: Patient is awake, alert and oriented x3. Cranial nerves 2 through 12 are grossly intact. Please refer to medication reconciliation sheet for a list of medications. The impression and plan of care has been dictated by Danielle Olmos, Nurse Practitioner as directed. Dr. Ildefonso MD I have performed a history and examination and MDM of this patient, discussed the same with the dictator, and agree with the dictator's assessment and plan as written ,documented as a scribe. Based on total visit time, I have performed more than 50% of the visit. Patient Condition at Discharge: Stable Plan - Discharge Summary Discharge Rx Participant: No New Discharge Prescriptions: New Ipratropium-Albuterol Nebulize [Duoneb 0.5 mg-3 mg/3 ml Soln] 3 ml INHALATION RT-TID #100 each Thiamine [Vitamin B-1] 100 mg PO DAILY #30 tablet Darbepoetin Saad [Aranesp] 40 mcg SQ Q7D each Lactulose [Cephulac] 30 gm PO BID #360 ml predniSONE 20 mg PO DAILY 10 Days #15 tab Pantoprazole [Protonix] 40 mg PO AC-BRKFST #30 tab Continue Cyanocobalamin [Vitamin B-12] 500 mcg PO DAILY Latanoprost Ophth [Xalatan 0.005%] 1 drop BOTH EYES HS Tamsulosin [Flomax] 0.4 mg PO HS Multivit-Min/FA/Lycopen/Lutein [Centrum Silver Men Tablet] 1 tab PO DAILY Atorvastatin [Lipitor] 40 mg PO DAILY #90 tablet Furosemide [Lasix] 40 mg PO BID@0900,1600 Dorzolamide/Timolol/Pf [Dorzolamide 2%-Timolol 0.5%] 1 drop BOTH EYES HS Ferrous Sulfate [Iron (65 MG Elemental)] 325 mg PO DAILY Pioglitazone [Actos] 30 mg PO DAILY Apixaban [Eliquis] 2.5 mg PO BID #60 tab Albuterol Inhaler [Ventolin Hfa Inhaler] 2 puff INHALATION RT-Q6H PRN PRN Reason: Shortness Of Breath Discontinued lisinopriL 2.5 mg PO DAILY Discharge Medication List Cyanocobalamin [Vitamin B-12] 500 mcg PO DAILY 12/11/17 [History] Latanoprost Ophth [Xalatan 0.005%] 1 drop BOTH EYES HS 12/11/17 [History] Multivit-Min/FA/Lycopen/Lutein [Centrum Silver Men Tablet] 1 tab PO DAILY 07/12/20 [History] Tamsulosin [Flomax] 0.4 mg PO HS 07/12/20 [History] Ferrous Sulfate [Iron (65 MG Elemental)] 325 mg PO DAILY 07/25/22 [History] Pioglitazone [Actos] 30 mg PO DAILY 07/25/22 [History] Apixaban [Eliquis] 2.5 mg PO BID #60 tab 10/01/22 [Rx] Atorvastatin [Lipitor] 40 mg PO DAILY #90 tablet 10/01/22 [Rx] Albuterol Inhaler [Ventolin Hfa Inhaler] 2 puff INHALATION RT-Q6H PRN 11/08/22 [History] Dorzolamide/Timolol/Pf [Dorzolamide 2%-Timolol 0.5%] 1 drop BOTH EYES HS 11/08/22 [History] Furosemide [Lasix] 40 mg PO BID@0900,1600 11/08/22 [History] Darbepoetin Saad [Aranesp] 40 mcg SQ Q7D each 12/03/22 [Rx] Ipratropium-Albuterol Nebulize [Duoneb 0.5 mg-3 mg/3 ml Soln] 3 ml INHALATION RT-TID #100 each 12/03/22 [Rx] Lactulose [Cephulac] 30 gm PO BID #360 ml 12/03/22 [Rx] Pantoprazole [Protonix] 40 mg PO AC-BRKFST #30 tab 12/03/22 [Rx] Thiamine [Vitamin B-1] 100 mg PO DAILY #30 tablet 12/03/22 [Rx] predniSONE 20 mg PO DAILY 10 Days #15 tab 12/03/22 [Rx] Follow up Appointment(s)/Referral(s): Bree Cancino MD [STAFF PHYSICIAN] - 12/21/22 9:40 am Jade Greer NPC [REFERRING] - 1 Week (Gastroenterology follow-up for new onset hepatocellular disease, hepatic encephalopathy) Balbir Arreaga MD [Primary Care Provider] - 12/07/22 3:15 pm (With Anjelica) Zunilda Moody MD [STAFF PHYSICIAN] - 1 Week (office not answering Please call to schedule appointment for Cirrohsis of Liver) Dashawn Diego MD [STAFF PHYSICIAN] - 1 Week (office will call with appointment time) Riddhi Hamilton MD [STAFF PHYSICIAN] - 12/31/22 9:00 am Ivan Blancas MD [STAFF PHYSICIAN] - 12/13/22 1:45 pm Ambulatory/Diagnostic Orders: Complete Blood Count w/diff [LAB.AMB] Time Frame: 3 Days, Location: None Selected Patient Instructions/Handouts: Chronic Kidney Disease (DC) Activity/Diet/Wound Care/Special Instructions: heart healthy diet activity is restricted till you see your doctor 45-50 ounces fluid restrictions daily including all fluid intake Recommend repeat labs in 2-3 days Follow-up with nephrology, pulmonary, cardiology, general surgery outpatient Follow-up primary care provider on discharge Resume lactulose at home as ordered twice a day. Bill should have at least 3 bowel movements daily, please keep track of number of bowel movements each day. May increase dose to 3-4 times a day if you find you are getting more drowsy, decreased alertness, and or confused. Discharge Disposition: HOME SELF-CARE
== END 2022-12-03 12:00 | disposition home or self-care (01) | DRG 291 ==
LOC: EC 14:11 → 3SCARD 19:11 → 2SICU 11-29 17:58 → 4SSUR 12-02 17:23
PROVIDERS: ADMIT Internal Medicine; ATTEND Internal Medicine
PROC: 0D9670Z Drainage of Stomach with Drainage Device, Via Natural or Artificial Opening (ICD-10-PCS; 2022-11-22)
PROC: 30233N1 Transfusion of Nonautologous Red Blood Cells into Peripheral Vein, Percutaneous Approach (ICD-10-PCS; principal; 2022-11-28)
DX: I13.0 Hypertensive heart and chronic kidney disease with heart failure and stage 1 through stage 4 chronic kidney disease, or unspecified chronic kidney disease (principal); A41.9 Sepsis, unspecified organism; G92.8 Other toxic encephalopathy; N17.0 Acute kidney failure with tubular necrosis; I50.33 Acute on chronic diastolic (congestive) heart failure; Z68.41 Body mass index [BMI] 40.0-44.9, adult; E87.3 Alkalosis; E87.1 Hypo-osmolality and hyponatremia; K56.7 Ileus, unspecified; J96.11 Chronic respiratory failure with hypoxia; J44.1 Chronic obstructive pulmonary disease with (acute) exacerbation; E87.0 Hyperosmolality and hypernatremia; D61.818 Other pancytopenia; K76.6 Portal hypertension; Z66 Do not resuscitate; K76.82 Hepatic encephalopathy; I27.20 Pulmonary hypertension, unspecified; T50.1X5A Adverse effect of loop [high-ceiling] diuretics, initial encounter; I71.43 Infrarenal abdominal aortic aneurysm, without rupture; I48.0 Paroxysmal atrial fibrillation; N40.0 Benign prostatic hyperplasia without lower urinary tract symptoms; N20.0 Calculus of kidney; K70.31 Alcoholic cirrhosis of liver with ascites; N18.31 Chronic kidney disease, stage 3a; E11.22 Type 2 diabetes mellitus with diabetic chronic kidney disease; I08.1 Rheumatic disorders of both mitral and tricuspid valves; D63.1 Anemia in chronic kidney disease; I25.10 Atherosclerotic heart disease of native coronary artery without angina pectoris; I27.81 Cor pulmonale (chronic); E87.6 Hypokalemia; D46.9 Myelodysplastic syndrome, unspecified; D53.9 Nutritional anemia, unspecified; E66.01 Morbid (severe) obesity due to excess calories; E78.5 Hyperlipidemia, unspecified; W19.XXXA Unspecified fall, initial encounter; D69.6 Thrombocytopenia, unspecified; E87.5 Hyperkalemia; M19.90 Unspecified osteoarthritis, unspecified site; F10.21 Alcohol dependence, in remission; T38.0X5A Adverse effect of glucocorticoids and synthetic analogues, initial encounter; G47.33 Obstructive sleep apnea (adult) (pediatric); Z95.5 Presence of coronary angioplasty implant and graft; Z86.73 Personal history of transient ischemic attack (TIA), and cerebral infarction without residual deficits; Z85.828 Personal history of other malignant neoplasm of skin; Z79.899 Other long term (current) drug therapy; Z79.84 Long term (current) use of oral hypoglycemic drugs; Z79.4 Long term (current) use of insulin; Z79.01 Long term (current) use of anticoagulants; I25.2 Old myocardial infarction; Z87.891 Personal history of nicotine dependence
CPT/HCPCS: 36415; 36600; 70450; 71045; 71046; 74176; 76705; 76770; 80048; 80053; 80074; 81003; 82103; 82105; 82140; 82607; 82728; 82803; 82805; 83540; 83550; 83605; 83735; 83880; 83935; 84132; 84145; 84295; 84300; 84443; 84484; 85025; 85027; 85610; 86038; 86850; 86900; 86901; 86920; 87040; 93005; 94640; 94760; 96374; 99285